=== PATIENT | male | born 1960 | race Caucasian/White ===

== ENCOUNTER → 2017-03-31 | Outpatient (CLI) | payer OTHER ==
[~2017-03-31] MED LIST: ALL300 PO; AMLO-110 PO; ASPI81TA28 PO; ATOR-22 PO; CLB/200 PO; FURO40TA3 PO; INDO-22 PO; LISI-729 PO; METF1TAB53 PO; METO-479 PO; NTRGSL/4 UT; PRLSR20 PO; TRAM-453 PO; VENL150C56 PO; ZOLP1TAB PO
[2017-03-31 09:38] LABS: ALT/SGPT 34 U/L (12-78); AST/SGOT 24 U/L (15-37); BLOOD UREA NITROGEN 15 mg/dl (7-18); BUN/CREATININE RATIO 13.4 (10-20); CARBON DIOXIDE 29 mmol/L (21-32); CHLORIDE 103 mmol/L (98-107); CHOLESTEROL 94 mg/dl (0-200); GLUCOSE 139 mg/dl (70-99); POTASSIUM 4.4 mmol/L (3.5-5.1); SODIUM 141 mmol/L (136-145); TRIGLYCERIDES 198 mg/dl (0-150); VERY LOW DENSITY LIPOPROT CALC 40 mg/dl
[2017-03-31 09:43] LABS: CHOLESTEROL/HDL RATIO 2.9; HDL CHOLESTEROL 32 mg/dl; LDL CHOLESTEROL CALCULATED 22 mg/dl; PROSTATE SPECIFIC ANTIGEN 0.465 ng/ml (0.000-4.000)
[2017-03-31 09:49] LABS: CALCIUM 9.1 mg/dl (8.5-10.1)
[2017-03-31 11:10] LABS: ESTIMATED AVERAGE GLUCOSE 134 mg/dl; HA1C FLAG Normal (Normal)
== END | disposition home or self-care (01) ==
LOC: C.LAB 06:46
PROVIDERS: ATTEND Internal Medicine
DX: E78.5 Hyperlipidemia, unspecified (principal); I10 Essential (primary) hypertension; E66.9 Obesity, unspecified; Z13.0 Encounter for screening for diseases of the blood and blood-forming organs and certain disorders involving the immune mechanism; F52.8 Other sexual dysfunction not due to a substance or known physiological condition; E11.9 Type 2 diabetes mellitus without complications

== ENCOUNTER → 2017-12-20 | Outpatient (CLI) | payer OTHER ==
[2017-12-20 09:38] LABS: ALT/SGPT 32 U/L (12-78); AST/SGOT 22 U/L (15-37); BLOOD UREA NITROGEN 11 mg/dl (7-18); CALCIUM 8.9 mg/dl (8.5-10.1); CARBON DIOXIDE 31 mmol/L (21-32); CREATININE 1.04 mg/dl (0.60-1.40); GLUCOSE 112 mg/dl (70-99); POTASSIUM 4.5 mmol/L (3.5-5.1); SODIUM 140 mmol/L (136-145)
[2017-12-20 09:41] LABS: CHOLESTEROL 117 mg/dl (0-200); LDL CHOLESTEROL CALCULATED 39 mg/dl; URIC ACID 8.1 mg/dl (2.6-7.2)
== END | disposition home or self-care (01) ==
LOC: C.LAB 06:45
PROVIDERS: ATTEND Internal Medicine
DX: E11.9 Type 2 diabetes mellitus without complications (principal); E78.5 Hyperlipidemia, unspecified; E83.42 Hypomagnesemia; M10.9 Gout, unspecified

== ENCOUNTER → 2018-01-13 | Outpatient (CLI) | payer OTHER ==
[~2018-01-13] VITALS: Ht 171.5 cm; Wt 118.8 kg
[2018-01-13 16:17] VITALS: BP 152/82; PULSE 80; Ht 171.5 cm; Wt 118.8 kg
== END | disposition home or self-care (01) ==
LOC: C.NEUR 14:50
PROVIDERS: ATTEND Internal Medicine Pulmonary Disease
DX: G47.33 Obstructive sleep apnea (adult) (pediatric) (principal); F51.04 Psychophysiologic insomnia

== ENCOUNTER → 2018-02-28 | Outpatient (CLI) | payer OTHER ==
[2018-02-28 17:34] LABS: ALKALINE PHOSPHATASE 80 U/L (45-117); ALT/SGPT 39 U/L (12-78); AST/SGOT 31 U/L (15-37); BLOOD UREA NITROGEN 17 mg/dl (7-18); CALCIUM 9.3 mg/dl (8.5-10.1); CARBON DIOXIDE 30 mmol/L (21-32); CREATININE 1.28 mg/dl (0.60-1.40); GLUCOSE 103 mg/dl (70-99); POTASSIUM 4.3 mmol/L (3.5-5.1); SODIUM 137 mmol/L (136-145); TOTAL PROTEIN 7.8 gm/dl (6.4-8.2)
== END | disposition home or self-care (01) ==
LOC: C.LAB 14:59
PROVIDERS: ATTEND Physician Assistant Medical
DX: E78.5 Hyperlipidemia, unspecified (principal)

== ENCOUNTER → 2018-03-04 | Outpatient (CLI) | payer OTHER ==
[~2018-03-04] MED LIST changes: +REGADENOSON 0.4 MG/5 ML SYR ONE
--- NOTE | 2018-03-04 23:52 | MYOCARDIAL PERFUSION SCAN ---
STUDY REQUESTED BY: Tano Nixon. PRIMARY CARE PROVIDER: Yoandy Javed MD STUDY TITLE: One-day nuclear medicine technetium-99m Cardiolite myocardial perfusion scan. INDICATION: History of coronary artery disease, prior bypass surgery with atypical chest pain. BASELINE EKG: Normal sinus rhythm at a rate of 73, no significant ST abnormalities. STRESS EKG: Heart rate natalya from 71-93 with Lexiscan representing 57% of maximum predicted heart rate. Peak blood pressure was 174/87. With Lexiscan, there were no ST changes. TECHNIQUE: For the stress portion of the study, 30.5 mCi of technetium-99m Cardiolite IV was injected at 1330 on 03/04/2018. Thirty minutes following the injection, imaging of the heart was performed in multiple projections. For the rest portion of the study, 11.4 mCi of technetium-99m Cardiolite was injected IV at 11:50. One hour following the injection, imaging of projections. FINDINGS: The rotating raw images were reviewed in detail. There was no significant motion. There was a positive diaphragmatic attenuation shadow. There was minimal gut/liver uptake impacting the inferior imaging border of the heart. There was no significant extracardiac pathologic uptake. The short axis, vertical long axis, horizontal long axis images were reviewed in detail. There was a primarily reversible apical septal/true apex perfusion defect with some difference score of approximately 5. There was also a primarily fixed inferior basal perfusion defect. LV was borderline dilated with an end diastolic volume of 131 mL. Calculated ejection fraction was 42% with paradoxical septal motion and akinesis of the basal inferior wall. There was also hypokinesis of the apex. IMPRESSION: 1. Positive Lexiscan myocardial perfusion study for ischemia in the apical septum in inferior carreno as well as the true apex. Some difference score was 5 representing an intermediate amount of myocardium at risk. 2. Primarily fixed basal inferior perfusion defect with associated wall motion abnormality suggesting prior inferior infarct. 3. Borderline LV size with an end-diastolic volume of 131 and mild LV dysfunction with an EF of 42%. There was basal inferior akinesis and hypokinesis of the apex. 4. Nondiagnostic Lexiscan EKG due to inability to reach target heart rate.
== END | disposition home or self-care (01) ==
LOC: C.NUCL 10:43
PROVIDERS: ATTEND Physician Assistant Medical
DX: R07.9 Chest pain, unspecified (principal)

== ENCOUNTER 2019-10-10 15:49 | Inpatient (IN) ==
[2019-10-10] MEDS ORDERED: ONDANSETRON INJ 2 MG/ML 2 ML VIAL IV STA (16:08)
[2019-10-10] MEDS ORDERED: MoRPHine SULFATE 10 MG/ML CARP/VIAL IV STA (16:08)
[2019-10-10 16:31] LABS: Basophils # (auto) 0.03 K/uL (0-0.2); Basophils % (auto) 0.3 %; Eosinophils # (auto) 0.23 K/uL (0-0.5); Eosinophils % (auto) 2.3 %; Hematocrit (blood only) 40.2 % (42-52); Hemoglobin 13.5 g/dL (14.0-18.0); Immature Granulocytes # (auto) 0.03 K/uL (0.00-0.02); Immature Granulocytes % (auto) 0.3 %; Lymphocytes # (auto) 1.73 K/uL (1.2-3.4); Lymphocytes % (auto) 17.6 %; Mean Corpuscular Hemoglobin 31.9 pg (25-34); Mean Corpuscular Hgb Conc 33.6 g/dL (32-36); Mean Platelet Volume 10.9 fL (7.4-10.4); Monocytes # (auto) 0.69 K/uL (0.11-0.59); Neutrophils # (auto) 7.11 K/uL (1.4-6.5); Neutrophils % (auto) 72.5 %; Platelet Count 151 K/uL (130-400); RDW Coefficient of Variation 13.9 % (11.5-14.5); RDW Standard Deviation 47.9 fL (36.4-46.3); Red Blood Count 4.23 M/uL (4.7-6.1); White Blood Count 9.82 K/uL (4.8-10.8)
[2019-10-10 16:50] LABS: Albumin Level 3.2 gm/dl (3.4-5.0); BUN Creatinine Ratio 9.3 (10-20); Calcium 8.6 mg/dl (8.5-10.1); Creatinine Clr Calc Pharmacy 22.2 ml/min; Est GFR (African American) 15.5; Est GFR (Non-African American) 13.4; Potassium 5.6 mmol/L (3.5-5.1)
[2019-10-10 16:53] LABS: Albumin Globulin Ratio 0.8 (0.9-2); Bilirubin,Total 0.8 mg/dl (0.2-1); Globulin 3.9 gm/dl (2.5-4.0); Total Protein 7.1 gm/dl (6.4-8.2)
--- NOTE | 2019-10-10 17:22 | XRay Report ---
KUB CLINICAL HISTORY: Left flank pain. COMPARISON STUDY: KUB October 07, 2019. CT of the abdomen and pelvis October 08, 2019. FINDINGS: A 6 mm left ureteropelvic junction calculus is unchanged in position since CT of September 242018. A probable 8 mm x 4 mm distal right ureteral calculus is also similar in position. Bilateral renal calculi measure up to 8 mm. Left hip arthroplasty is noted. The left iliac artery stent is not ed. Bowel gas pattern is normal. IMPRESSION: 1. No change in position of a 6 mm left ureteropelvic junction calculus. 2. Suspected 8 mm x 4 mm distal right ureteral calculus. 3. Bilateral nephrolithiasis. Electronically signed by: Oleg Erickson M.D. 10/10/2019 5:20 PM
--- NOTE | 2019-10-10 18:06 | Ultrasound Report ---
RENAL ULTRASOUND CLINICAL HISTORY: 6mm l stone COMPARISON STUDY: CT of the abdomen and pelvis October 08, 2019. Renal ultrasound October 07, 2019 . TECHNIQUE: Sonography of the kidneys and the urinary bladder was performed. FINDINGS: Right kidney measures 11.9 cm maximal dimension and the left measures 13.6 cm. Bilateral re nal calculi are noted. Mild right hydronephrosis has developed since CT of October 08, 2019. Mild to moderate left hydronephrosis is similar to prior CT. There are multiple left renal cysts. Neither ur eteral jet was identified. No ureteral calculi are identified although these can be occult by sonogra phy. IMPRESSION: 1. Interval development of mild right hydronephrosis since CT of October 08, 2019. No significant ch amadeo in mild to moderate left hydronephrosis. No ureteral calculi identified although these are often occult by sonography. 2. Bilateral nephrolithiasis. 3. Multiple left renal cyst. Electronically signed by: Oleg Erickson M.D. 10/10/2019 6:05 PM
[2019-10-10] MEDS ORDERED: SODIUM CHLORIDE 0.9% 1000ML 2,000 ML IV ONE (18:08)
[2019-10-10 18:25] LABS: Appearance Urine Clear (Clear); Bacteria Urine Automated Negative (Negative); Bilirubin Urine Negative (Negative); Blood Urine Trace (Negative); Color Urine Yellow; Epithelial Cell Urine Auto >30 /lpf (0-5); Glucose Urine UA Negative (Negative); Ketones Urine Negative (Negative); Leukocyte Esterase Urine Negative (Negative); Nitrite Urine Negative (Negative); Protein Urine Negative (Negative); Specific Gravity Urine 1.019 (1.000-1.030); Urobilinogen Urine Negative (Negative)
[2019-10-10] MEDS ORDERED: GLUCOSE 10 TABS/TUBE PO PRN (19:46)
[2019-10-10] MEDS ORDERED: NITROGLYCERIN SL 0.4 MG/TAB TAB SL PRN (19:46)
[2019-10-10] MEDS ORDERED: GLUCOSE 40% GEL 15 GM TUBE PO PRN (19:46)
[2019-10-10] MEDS ORDERED: ONDANSETRON INJ 2 MG/ML 2 ML VIAL IV PRN (19:46)
[2019-10-10] MEDS ORDERED: ACETAMINOPHEN 325 MG TAB PO PRN (19:46)
[2019-10-10] MEDS ORDERED: GLUCAGON FOR INJ 1 MG VIAL SQ PRN (19:46)
[2019-10-10] MEDS ORDERED: CARBOHYDRATES FOR HYPOGLYCEMIA PO PRN (19:46)
[2019-10-10] MEDS ORDERED: DEXTROSE 50% 50 ML SYRINGE IV PRN (19:46)
[2019-10-10] MEDS ORDERED: HYDROmorphone INJ 1 MG/ML SYRINGE ONE (19:51)
--- NOTE | 2019-10-10 20:08 | History & Physical Report ---
Date of Service October 10, 2019 Assessment & Plan (1) Bilateral ureteral calculi: Admit tele Strain urine NSS @ 125 Urology consult Pain and nausea control Continue Flomax Patient was placed on Cefdinir at ED visit. I will change to Rocephin, however urine does not show signs of infection. I do so due to concern if on kidney is blocked and not draining. (2) Hydronephrosis due to obstruction of bladder: L>R (3) Acute kidney injury: Likely due to b/l ureteral obstruction Baseline creat 1.09 now 4.46 Hold celecoxib, lisinopril, Lasix, and metformin. Check BMP in am. (4) Type II diabetes mellitus: Hold Metformin Sliding scale insulin coverage. (5) CAD (coronary artery disease): Continue NGT prn, metoprolol, and aspirin. (6) GERD (gastroesophageal reflux disease): Continue omeprazole (7) Hyperlipidemia: Continue atorvastatin (8) Hypertension: Continue amlodipine Add prn hydralazine. (9) Gout: Continue allopurinol. History of Present Illness 59 y/o male presented to the ED with continue Left flank pain radiating into the left testicle not controlled with oral pain medication. He was seen in the ED 2 days prior and was diagnosed with Left ureteral stone. KUB today shows persistent stone on the Left and questionable stone in the Right ureter. Also his creat jumped from 1.8 on 10/08/19 to 4.46 today. His baseline creat is 1.09. + Nausea. No F/C, cough, chest pain, SOB, hematuria, or vomiting. Primary Care Provider: Yoandy Javed MD Allergies Allergy/AdvReac Type Severity Reaction Status Date / Time Zocor TABS AdvReac Mild nausea, Uncoded 10/10/19 16:20 vomiting Home Medications Home Medications Medication Instructions Recorded Confirmed Type metoprolol succinate 100 mg 200 mg PO QAM #180 tab 07/23/19 10/10/19 History tablet,extended release 24 hr nystatin 100,000 unit/gram topical 1 appln TOP BID PRN gm 07/23/19 10/10/19 History cream tadalafil 20 mg tablet 20 mg PO DAILY PRN #18 tab 07/23/19 10/10/19 History zolpidem 12.5 mg tablet,extended 12.5 mg PO HS PRN tab 07/23/19 10/10/19 History release,multiphase nitroglycerin 0.4 mg sublingual 0.4 mg SL UD PRN #25 tab 07/27/19 10/10/19 History tablet allopurinol 300 mg PO HS 10/07/19 10/10/19 History amlodipine 5 mg PO QAM 10/07/19 10/10/19 History aspirin [Aspir-81] 81 mg PO QAM 10/07/19 10/10/19 History atorvastatin 40 mg PO HS 10/07/19 10/10/19 History celecoxib 200 mg PO BID 10/07/19 10/10/19 History furosemide 40 mg PO QAM 10/07/19 10/10/19 History hydrocodone-acetaminophen 1 tab PO BID PRN 10/07/19 10/10/19 History lisinopril 5 mg PO HS 10/07/19 10/10/19 History metformin 1,000 mg PO HS 10/07/19 10/10/19 History omeprazole 20 mg PO QAM 10/07/19 10/10/19 History venlafaxine 225 mg PO HS 10/07/19 10/10/19 History cefdinir 300 mg PO BID 10 Days #20 cap 10/08/19 10/10/19 Rx ondansetron HCl [Zofran] 4 mg PO Q6 PRN #6 tab 10/08/19 10/10/19 Rx oxycodone 5 mg PO DAILY PRN #14 tab 10/08/19 10/10/19 Rx tamsulosin [Flomax] 0.4 mg PO HS #10 cap 10/08/19 10/10/19 Rx Past Med/Surg History Medical History (Updated 10/10/19 @ 19:57 by Db Julian DO) CAD (coronary artery disease) Erectile dysfunction (Chronic) GERD (gastroesophageal reflux disease) Gout (Chronic) Hypertension (Chronic) PAD (peripheral artery disease) (Acute 08/22/14) Type II diabetes mellitus Surgical History H/O repair of rotator cuff History of cholecystectomy History of hip replacement History of hip surgery History of lumbar surgery S/P CABG x 3 Social History Visual Impairment: No Limitations Hearing Ability: Normal marital status: Current Living Situation: Spouse current occupational status: disabled Feels Safe at Home: Yes Smoking Status: Former smoker Age Quit Using Tobacco: 37 ; packs per day: 2 ; Cigarettes Per Day: 20-40 ; Second Hand Exposure: No ; Hx Alcohol Use: Yes Alcohol Intake Frequency: Weekly Hx Substance Use: No Review of Systems Review of Systems: Constitutional- no fever; no weight loss Eyes- no acute visual changes ENT- no sinus drainage; no pharyngitis Pulmonary- no cough, no wheezing, no shortness of breath Cardiac- no chest pain, no palpitations, no orthopnea, no dependent edema GI- in HPI - As in HPI Musculoskeletal- no arthralgias, no myalgias Derm- no rashes, no new skin lesions. Hematologic- no unusual bruising, no unusual bleeding Lymphatics- no adenopathy Endocrine- no polyuria or polydipsia; no heat or cold intolerance Neuro- no headaches, no focal neurologic symptoms Psych- no anxiety, no depression Physical Exam Physical Exam: General- adult male, NAD Head- atraumatic Eyes- PERRL, EOMI, anicteric ENT- oropharynx clear Neck- supple, no JVD, no adenopathy, no thyromegaly. Lungs- CTA b/l no R/R/W Heart- regular rhythm; no murmur, no gallop, no rub appreciated Abdomen- normal bowel sounds, soft, nontender. Extremities- no pretibial edema, no calf tenderness; peripheral pulses intact Neuro- alert, oriented x 3; PERRL, EOMI; laboratory chemist II-XII grossly intact, Non-focal. Skin- warm & dry Results & Data Vital Signs (Past 12 Hours) Vital Signs Temp Pulse Pulse Resp BP BP Pulse Ox 10/10/19 18:05 157/73 H 10/10/19 18:04 83 97 10/10/19 17:00 97 10/10/19 15:53 36.8 C 79 20 196/102 H 96 Laboratory Results Laboratory Results WBC 9.82 K/uL (4.8-10.8) 10/10/19 16:23 RBC 4.23 M/uL (4.7-6.1) L 10/10/19 16:23 Hgb 13.5 g/dL (14.0-18.0) L 10/10/19 16:23 Hct 40.2 % (42-52) L 10/10/19 16:23 MCV 95.0 fL (80-100) 10/10/19 16:23 MCH 31.9 pg (25-34) 10/10/19 16:23 MCHC 33.6 g/dL (32-36) 10/10/19 16:23 RDW Std Deviation 47.9 fL (36.4-46.3) H 10/10/19 16:23 RDW Coeff of Masoud 13.9 % (11.5-14.5) 10/10/19 16:23 Plt Count 151 K/uL (130-400) 10/10/19 16:23 MPV 10.9 fL (7.4-10.4) H 10/10/19 16:23 Immature Gran % (Auto) 0.3 % 10/10/19 16:23 Neut % (Auto) 72.5 % 10/10/19 16:23 Lymph % (Auto) 17.6 % 10/10/19 16:23 [place] % (Auto) 7.0 % 10/10/19 16:23 Eos % (Auto) 2.3 % 10/10/19 16:23 Baso % (Auto) 0.3 % 10/10/19 16:23 Immature Gran # (Auto) 0.03 K/uL (0.00-0.02) H 10/10/19 16:23 Neut # (Auto) 7.11 K/uL (1.4-6.5) H 10/10/19 16:23 Lymph # (Auto) 1.73 K/uL (1.2-3.4) 10/10/19 16:23 [place] # (Auto) 0.69 K/uL (0.11-0.59) H 10/10/19 16:23 Eos # (Auto) 0.23 K/uL (0-0.5) 10/10/19 16:23 Baso # (Auto) 0.03 K/uL (0-0.2) 10/10/19 16:23 Sodium 132 mmol/L (136-145) L 10/10/19 16:23 Potassium 5.6 mmol/L (3.5-5.1) H 10/10/19 16:23 Chloride 103 mmol/L (98-107) 10/10/19 16:23 Carbon Dioxide 25 mmol/L (21-32) 10/10/19 16:23 Anion Gap 4.0 (3-11) 10/10/19 16:23 BUN 42 mg/dl (7-18) H 10/10/19 16:23 Creatinine 4.46 mg/dl (0.6-1.4) H 10/10/19 16:23 Est Cr Clr Drug Dosing 22.2 ml/min 10/10/19 16:23 Est GFR ( Amer) 15.5 10/10/19 16:23 Est GFR (Non-Af Amer) 13.4 10/10/19 16:23 BUN/Creatinine Ratio 9.3 (10-20) L 10/10/19 16:23 Glucose 131 mg/dl (70-99) H 10/10/19 16:23 Calcium 8.6 mg/dl (8.5-10.1) 10/10/19 16:23 Total Bilirubin 0.8 mg/dl (0.2-1) 10/10/19 16:23 AST 23 U/L (15-37) 10/10/19 16:23 ALT 68 U/L (12-78) 10/10/19 16:23 Alkaline Phosphatase 99 U/L (45-117) 10/10/19 16:23 Total Protein 7.1 gm/dl (6.4-8.2) 10/10/19 16:23 Albumin 3.2 gm/dl (3.4-5.0) L 10/10/19 16:23 Globulin 3.9 gm/dl (2.5-4.0) 10/10/19 16:23 Albumin/Globulin Ratio 0.8 (0.9-2) L 10/10/19 16:23 Lipase 772 U/L (73-393) H 10/10/19 16:23 Urine Color Yellow 10/10/19 17:55 Urine Appearance Clear (Clear) 10/10/19 17:55 Urine pH 5.0 (4.5-7.5) 10/10/19 17:55 Ur Specific [place] 1.019 (1.000-1.030) 10/10/19 17:55 Urine Protein Negative (Negative) 10/10/19 17:55 Urine Glucose (UA) Negative (Negative) 10/10/19 17:55 Urine Ketones Negative (Negative) 10/10/19 17:55 Urine Blood Trace (Negative) H 10/10/19 17:55 Urine Nitrite Negative (Negative) 10/10/19 17:55 Urine Bilirubin Negative (Negative) 10/10/19 17:55 Urine Urobilinogen Negative (Negative) 10/10/19 17:55 Ur Leukocyte Esterase Negative (Negative) 10/10/19 17:55 Urine WBC (Auto) 1-5 /hpf (0-5) 10/10/19 17:55 Urine RBC (Auto) 5-10 /hpf (0-4) H 10/10/19 17:55 U Hyaline Cast (Auto) 1-5 /lpf (0-5) 10/10/19 17:55 U Epithel Cells (Auto) >30 /lpf (0-5) H 10/10/19 17:55 Urine Bacteria (Auto) Negative (Negative) 10/10/19 17:55 Diagnostic Findings [place], [place] [phone] XRay Report Patient: DEVON CARRIZALES Date: 10/10/19 MR#: [id number]: [address] [place] [address] Acct ID:[id number]: Date: 1960[facility] Zip: [place] [address] Age: 59Location: ED Sex: M Room/Bed: Att Phy:Diagnosis: KIDNEY STONES Siobhan Phy: Yoandy Javed MDServlani Date: 10/10/19 Fam Phy:Interpreting Phy: Oleg Erickson MD Admit Phy: Ordering Phy: Luis Armando Melgoza DO cc: ~ KUB CLINICAL HISTORY: Left flank pain. COMPARISON STUDY: KUB October 07, 2019. CT of the abdomen and pelvis October 08, 2019. FINDINGS: A 6 mm left ureteropelvic junction calculus is unchanged in position since CT of October 08, 2019. A probable 8 mm x 4 mm distal right ureteral calculus is also similar in position. Bilateral renal calculi measure up to 8 mm. Left hip arthroplasty is noted. The left iliac artery stent is noted. Bowel gas pattern is normal. IMPRESSION: 1. No change in position of a 6 mm left ureteropelvic junction calculus. 2. Suspected 8 mm x 4 mm distal right ureteral calculus. 3. Bilateral nephrolithiasis. Electronically signed by: Oleg Erickson M.D. 10/10/2019 5:20 PM Dictated: 10/10/191715 Transcribed: 10/10/191715 [place], [place] [phone] Ultrasound Report Patient: DEVON CARRIZALES Date: 10/10/19 MR#: [id number]: [address] [place] [address] Acct ID:[id number]: Date: 1960[facility] Zip: [place] [address] Age: 59Location: ED Sex: M Room/Bed: Att Phy:Diagnosis: KIDNEY STONES Siobhan Phy: Yoandy Javed, MDService Date: 10/10/19 Fam Phy:Interpreting Phy: Oleg Erickson MD Admit Phy: Ordering Phy: Luis Armando Melgoza DO cc: ~ RENAL ULTRASOUND CLINICAL HISTORY: 6mm l stone COMPARISON STUDY: CT of the abdomen and pelvis October 08, 2019. Renal ultrasound October 07, 2019. TECHNIQUE: Sonography of the kidneys and the urinary bladder was performed. FINDINGS: Right kidney measures 11.9 cm maximal dimension and the left measures 13.6 cm. Bilateral renal calculi are noted. Mild right hydronephrosis has developed since CT of October 08, 2019. Mild to moderate left hydronephrosis is similar to prior CT. There are multiple left renal cysts. Neither ureteral jet was identified. No ureteral calculi are identified although these can be occult by sonography. IMPRESSION: 1. Interval development of mild right hydronephrosis since CT of October 08, 2019. No significant change in mild to moderate left hydronephrosis. No ureteral calculi identified although these are often occult by sonography. 2. Bilateral nephrolithiasis. 3. Multiple left renal cyst. Electronically signed by: Oleg Erickson M.D. 10/10/2019 6:05 PM Dictated: 10/10/191801 Transcribed: 10/10/191801 Code Status & VTE Plan VTE Prophylaxis Plan VTE Prophylaxis will be ordered: Yes PG Care Time/CCT Total # of Minutes Spent Total Time Spent: 60 Total Time Spent with Patient: Total time spent is greater than 50% in coordination of care (as documented) at patient's floor/unit and/or counseling patient:
--- NOTE | 2019-10-10 20:42 | Emergency Department Note ---
Entered by Melonie Tee acting as a scribe for Luis Armando Melgoza DO History of Present Illness General Chief complaint: Kidney Stone Stated complaint: KIDNEY STONES Time Seen by Provider: 10/10/19 15:56 Source: patient and family () History of Present Illness Onset (ago): day(s) 4 Location: left (flank) Radiation: back (left side), abdomen (center) and other (left testicle) Pain Consistency: + intermittent Maximum Pain Intensity: 9 Quality: + other ("shooting") Associated symptoms: + denies other symptoms (rhinorrhea ), + diaphoresis, + loss of appetite (secondary to pain), + nausea/vomiting and + other (chills); no cough Treatments prior to arrival: other (oxycodone 12:00PM) The patient is a 59 year old male with a history of kidney stones, CAD, PAD, DM2, HTN, hyperlipidemia who presents to the Emergency Room with complaints of kidney stones. 4 days ago, the patient began to experience left sided intermittent flank pain associated with chills, vomiting, and diaphoresis. He was seen here in the ED 3 days ago for a left sided 6mm kidney stone and sent home with [facility]. Since his recent discharge, his pain persists and radiates to the left side of his back and he states that it is now shooting into the center of his abdomen and left testicle. He reports taking oxycodone at 12:00PM today with no relief. Of note, he normally passes his kidney stones on his own, however this one is different. states that he has not followed up with nephrology for years. Additionally, the patient did not have any PO intake today due to pain. His last meal was dinner last night. He is unsure of fever and denies cough and rhinorrhea. The patient offers no additional concerns at this time. Home Medications Home Medications Medication Instructions Recorded Confirmed Type metoprolol succinate 100 mg 200 mg PO QAM #180 tab 07/23/19 10/10/19 History tablet,extended release 24 hr nystatin 100,000 unit/gram topical 1 appln TOP BID PRN gm 07/23/19 10/10/19 History cream tadalafil 20 mg tablet 20 mg PO DAILY PRN #18 tab 07/23/19 10/10/19 History zolpidem 12.5 mg tablet,extended 12.5 mg PO HS PRN tab 07/23/19 10/10/19 History release,multiphase nitroglycerin 0.4 mg sublingual 0.4 mg SL UD PRN #25 tab 07/27/19 10/10/19 History tablet allopurinol 300 mg PO HS 10/07/19 10/10/19 History amlodipine 5 mg PO QAM 10/07/19 10/10/19 History aspirin [Aspir-81] 81 mg PO QAM 10/07/19 10/10/19 History atorvastatin 40 mg PO HS 10/07/19 10/10/19 History celecoxib 200 mg PO BID 10/07/19 10/10/19 History furosemide 40 mg PO QAM 10/07/19 10/10/19 History hydrocodone-acetaminophen 1 tab PO BID PRN 10/07/19 10/10/19 History lisinopril 5 mg PO HS 10/07/19 10/10/19 History metformin 1,000 mg PO HS 10/07/19 10/10/19 History omeprazole 20 mg PO QAM 10/07/19 10/10/19 History venlafaxine 225 mg PO HS 10/07/19 10/10/19 History cefdinir 300 mg PO BID 10 Days #20 cap 10/08/19 10/10/19 Rx ondansetron HCl [Zofran] 4 mg PO Q6 PRN #6 tab 10/08/19 10/10/19 Rx oxycodone 5 mg PO DAILY PRN #14 tab 10/08/19 10/10/19 Rx tamsulosin [Flomax] 0.4 mg PO HS #10 cap 10/08/19 10/10/19 Rx Allergies Allergy/AdvReac Type Severity Reaction Status Date / Time Zocor TABS AdvReac Mild nausea, Uncoded 10/10/19 16:20 vomiting Past Med/Surg History Medical History CAD (coronary artery disease) Erectile dysfunction (Chronic) GERD (gastroesophageal reflux disease) Gout (Chronic) Hypertension (Chronic) PAD (peripheral artery disease) (Acute 08/22/14) Type II diabetes mellitus Surgical History H/O repair of rotator cuff History of cholecystectomy History of hip replacement History of hip surgery History of lumbar surgery S/P CABG x 3 Family History Aunt Myocardial infarction Bone cancer Grandfather (Paternal) Myocardial infarction Father Myocardial infarction Uncle Bone cancer Brain cancer Prostate cancer Mother Breast cancer Diabetes Social History Preferred Language: Faroese Communication Ability: Effective Visual Impairment: No Limitations Hearing Ability: Normal Environmental Tech Required: No Beliefs That Will Affect Care: None marital status: Current Living Situation: Spouse Current Living Situation Comment: House current occupational status: disabled Feels Safe at Home: Yes Smoking Status: Never smoker Age Quit Using Tobacco: 37 ; packs per day: 2 ; Cigarettes Per Day: 20-40 ; Second Hand Exposure: No ; Hx Alcohol Use: No Hx Substance Use: No Review of Systems See HPI for pertinent positives & negatives. and A total of 10 systems reviewed and were otherwise negative Physical Exam Vital Signs Vital Signs - 24 hr 10/10/19 15:53 10/10/19 17:00 10/10/19 18:04 Temperature 36.8 C Temperature Source Oral Pulse Rate 79 Pulse Rate [Finger] 83 Respiratory Rate 20 Respiratory Effort / Characteristics Non-Labored Spontaneous Respiratory Depth Normal Blood Pressure 196/102 H Blood Pressure [Left Arm] Blood Pressure Mean 133 Blood Pressure Mean [Left Arm] Blood Pressure Position Sitting Pulse Oximetry 96 97 97 Oxygen Delivery Method Room Air Room Air Room Air Sepsis Recent Fever Within 48 Hours No Sepsis Action Taken by Nursing No Action Required 10/10/19 18:05 Temperature Temperature Source Pulse Rate Pulse Rate [Finger] Respiratory Rate Respiratory Effort / Characteristics Respiratory Depth Blood Pressure Blood Pressure [Left Arm] 157/73 H Blood Pressure Mean Blood Pressure Mean [Left Arm] 101 Blood Pressure Position Pulse Oximetry Oxygen Delivery Method Sepsis Recent Fever Within 48 Hours Sepsis Action Taken by Nursing GENERAL: alert, well nourished, sitting up in bed, holding left flank, mild distress, non-toxic EYE EXAM: normal conjunctiva OROPHARYNX: no exudate, no erythema, lips, buccal mucosa, and tongue normal and mucous membranes are moist NECK: supple, no nuchal rigidity, no adenopathy, non-tender LUNGS: Clear to auscultation. Normal chest wall mechanics HEART: no murmurs, S1 normal and S2 normal ABDOMEN: abdomen soft, non-tender, normo-active bowel sounds, no masses, no rebound or guarding. BACK: Back is symmetrical on inspection and there is no deformity, no midline tenderness, no CVA tenderness. SKIN: no rashes and no bruising UPPER EXTREMITIES: upper extremities are grossly normal. LOWER EXTREMITIES: No pitting edema. NEURO EXAM: Normal sensorium, cranial nerves II-XII grossly intact, normal speech, no gross weakness of arms, no gross weakness of legs. Course Course ED COURSE: Vital signs were reviewed and showed hypertension. The patients medical record was reviewed The above diagnostic studies were performed and reviewed. ED treatments and interventions as stated above. 1605: The patient was evaluated in room C01. A complete history and physical examination was performed. 1726: I checked on the patient and he states that he is feeling better. 1817: Upon reevaluation, the patient is resting.I discussed my findings with the patient and he understands and agrees with the treatment plan. Based on the patients age, coexisting illnesses, exam and lab findings the decision to treat as an inpatient was made. The patient remained stable while under my care. The patient will be evaluated for further management by Dr. Julian, [facility] Hospitalist. Administered Medications Discontinued Medications Hydromorphone HCl (Dilaudid) Confirm Administered Dose 1 mg .ROUTE .STK-MED ONE Stop: 10/10/19 19:52 Last Admin: 10/10/19 19:54 Dose: 1 mg Documented by: [id number] Sodium Chloride (Nss 1000ml) 2,000 mls @ 999 mls/hr IV .Q2H1M ONE Stop: 10/10/19 20:08 Last Infusion: 10/10/19 20:19 Dose: 0 mls/hr Documented by: [id number] Admin: 10/10/19 18:12 Dose: 999 mls/hr Documented by: [id number] Morphine Sulfate (Morphine Sulfate) 6 mg IV NOW STA Stop: 10/10/19 16:09 Last Admin: 10/10/19 16:27 Dose: 6 mg Documented by: [id number] Ondansetron HCl (Zofran) 4 mg IV NOW STA Stop: 10/10/19 16:09 Last Admin: 10/10/19 16:27 Dose: 4 mg Documented by: [id number] Medical Decision Making Differential Diagnosis Differential diagnoses includes but is not limited to gastritis, peptic ulcer disease, GERD, gallbladder disease, pancreatitis, small bowel obstruction, acute coronary syndrome, pericarditis, ischemic bowel, irritable bowel disease, irritable bowel syndrome, appendicitis, diverticulitis, malignancy, hernia, urinary tract infection, torsion, perforation, trauma, infectious. Medical Records Attestation: I reviewed the patient's medical records. Home Medications Current Medication List: was personally reviewed by me Laboratory Data Attestation: I reviewed the patient's lab results. Result diagrams: 10/10/19 16:23 10/10/19 16:23 Lab Results 10/10/19 10/10/19 10/10/19 Range/Units 16:23 16:23 17:55 WBC 9.82 (4.8-10.8) K/uL RBC 4.23 L (4.7-6.1) M/uL Hgb 13.5 L (14.0-18.0) g/dL Hct 40.2 L (42-52) % MCV 95.0 (80-100) fL MCH 31.9 (25-34) pg MCHC 33.6 (32-36) g/dL RDW Std Deviation 47.9 H (36.4-46.3) fL RDW Coeff of Masoud 13.9 (11.5-14.5) % Plt Count 151 (130-400) K/uL MPV 10.9 H (7.4-10.4) fL Immature Gran % (Auto) 0.3 % Neut % (Auto) 72.5 % Lymph % (Auto) 17.6 % Knox % (Auto) 7.0 % Eos % (Auto) 2.3 % Baso % (Auto) 0.3 % Immature Gran # (Auto) 0.03 H (0.00-0.02) K/uL Neut # (Auto) 7.11 H (1.4-6.5) K/uL Lymph # (Auto) 1.73 (1.2-3.4) K/uL Knox # (Auto) 0.69 H (0.11-0.59) K/uL Eos # (Auto) 0.23 (0-0.5) K/uL Baso # (Auto) 0.03 (0-0.2) K/uL Sodium 132 L (136-145) mmol/L Potassium 5.6 H (3.5-5.1) mmol/L Chloride 103 (98-107) mmol/L Carbon Dioxide 25 (21-32) mmol/L Anion Gap 4.0 (3-11) BUN 42 H (7-18) mg/dl Creatinine 4.46 H (0.6-1.4) mg/dl Est Cr Clr Drug Dosing 22.2 ml/min Est GFR ( Amer) 15.5 Est GFR (Non-Af Amer) 13.4 BUN/Creatinine Ratio 9.3 L (10-20) Glucose 131 H (70-99) mg/dl Calcium 8.6 (8.5-10.1) mg/dl Total Bilirubin 0.8 (0.2-1) mg/dl AST 23 (15-37) U/L ALT 68 (12-78) U/L Alkaline Phosphatase 99 (45-117) U/L Total Protein 7.1 (6.4-8.2) gm/dl Albumin 3.2 L (3.4-5.0) gm/dl Globulin 3.9 (2.5-4.0) gm/dl Albumin/Globulin Ratio 0.8 L (0.9-2) Lipase 772 H (73-393) U/L Urine Color Yellow Urine Appearance Clear (Clear) Urine pH 5.0 (4.5-7.5) Ur Specific Felton 1.019 (1.000-1.030) Urine Protein Negative (Negative) Urine Glucose (UA) Negative (Negative) Urine Ketones Negative (Negative) Urine Blood Trace H (Negative) Urine Nitrite Negative (Negative) Urine Bilirubin Negative (Negative) Urine Urobilinogen Negative (Negative) Ur Leukocyte Esterase Negative (Negative) Urine WBC (Auto) 1-5 (0-5) /hpf Urine RBC (Auto) 5-10 H (0-4) /hpf U Hyaline Cast (Auto) 1-5 (0-5) /lpf U Epithel Cells (Auto) >30 H (0-5) /lpf Urine Bacteria (Auto) Negative (Negative) Blood Pressure Blood Pressure Findings: Elevated blood pressure Blood Pressure Disposition: further management by hospitalist RICKEY Narrative Patient is a 59-year-old male presents the ER for left flank pain. Patient was seen here and treated for 6 mm left renal stone about two days ago. Of note on that CT reviewed the question some right distal ureteral stones versus fecaliths. Notes the pain has been persistent and is getting very nauseated and has been unable to keep much down since then. He has not eaten or drank anything for the past 24 hours. IV was established blood work was obtained showed no significant leukocytosis or anemia. BMP with a creatinine of 4.4 up from 1.2. Potassium was 5.6. Lipase was slightly elevated at 772. UA was unremarkable. Patient was given IV fluids and IV narcotics. Ultrasound shows mild hydronephrosis which is persistent on the left along with some new hydronephrosis on the right. KUB favors that this is likely in the right ureter. Favor that this TANYA is a combination of dehydration and bilateral obstructing stones. Patient family were updated bedside admitted for further work-up. Impression & Plan Bilateral ureteral calculi, Renal colic, TANYA (acute kidney injury), Hydronephrosis, Hyperkalemia Discharge Plan Visit Data *Final* Discharge Date/Time: 10/10/19 20:22 Chief Complaint: Kidney Stone Stated Complaint: KIDNEY STONES ED Provider: Luis Armando Melgoza Discharge Problem: Bilateral ureteral calculi, Renal colic, TANYA (acute kidney injury), Hydron ephrosis, Hyperkalemia Patient Disposition: Admitted As Inpatient Discharge Instructions Interventions: ED Discharge Assessment Last Done: 10/10/19 20:22 Discharge Problem: Hydronephrosis Qualifiers: Hydronephrosis type: unspecified Qualified Code(s): N13.30 - Unspecified hydronephrosis The scribe's documentation has been prepared under my direction and personally reviewed by me in its entirety. I confirm that the note above accurately reflects all work, treatment, procedures, and medical decision making performed by me.
[2019-10-10] MEDS: SODIUM CHLORIDE 0.9% 1000ML 1,000 ML IV SCH (21:06)
[2019-10-10] MEDS ORDERED: ZOLPIDEM TARTRATE 10 MG TAB PO PRN (21:12)
[2019-10-10] MEDS: INSULIN ASPART 100 UNITS/ML 3 ML PEN SC SCH (21:34)
[2019-10-10] MEDS: TAMSULOSIN HCL 0.4 MG CAP PO SCH (21:43)
[2019-10-10] MEDS: allopurinoL 300 MG TAB PO SCH (21:43)
[2019-10-10] MEDS: ATORVASTATIN 40 MG TAB PO SCH (21:44)
[2019-10-10] MEDS: VENLAFAXINE HCL XR 75 MG CAPXR PO SCH (21:44)
[2019-10-10] MEDS: cefTRIAXone SODIUM 2,000 MG in DEXTROSE 5% 50 ML IV SCH (22:06)
[2019-10-11] MEDS: SODIUM CHLORIDE 0.9% 1000ML 1,000 ML IV SCH ×2 (04:28→16:27)
[2019-10-11] MEDS: HYDROmorphone INJ 1 MG/ML SYRINGE IV PRN ×3 (04:33→11:34)
[2019-10-11] MEDS: HydrALAZINE HCL 20 MG/ML VIAL IV PRN ×2 (04:39→16:39)
[2019-10-11 06:02] LABS: Hematocrit (blood only) 37.1 % (42-52); Hemoglobin 12.1 g/dL (14.0-18.0); Mean Corpuscular Hemoglobin 30.9 pg (25-34); Mean Corpuscular Hgb Conc 32.6 g/dL (32-36); Mean Corpuscular Volume 94.9 fL (80-100); Mean Platelet Volume 10.8 fL (7.4-10.4); Platelet Count 143 K/uL (130-400); RDW Coefficient of Variation 14.1 % (11.5-14.5); RDW Standard Deviation 48.5 fL (36.4-46.3); Red Blood Count 3.91 M/uL (4.7-6.1); White Blood Count 9.41 K/uL (4.8-10.8)
[2019-10-11 06:36] LABS: BUN Creatinine Ratio 9.3 (10-20); Creatinine Clr Calc Pharmacy 23.1 ml/min; Est GFR (African American) 16.2; Magnesium 1.7 mg/dl (1.8-2.4); Potassium 5.4 mmol/L (3.5-5.1)
[2019-10-11 07:35] LABS: Estimated Average Glucose 137 mg/dl; Hemoglobin A1C 6.4 % (4.5-5.6)
[2019-10-11] MEDS: METOPROLOL SUCC 50MG EXT REL TAB PO SCH (07:36)
[2019-10-11] MEDS: AMLODIPINE BESYLATE 5 MG TAB PO SCH (07:36)
[2019-10-11] MEDS: ASPIRIN 81 MG ECTAB PO SCH (07:37)
[2019-10-11] MEDS: PANTOprazole 40 MG TAB PO SCH (07:37)
[2019-10-11] MEDS: INSULIN ASPART 100 UNITS/ML 3 ML PEN SC SCH ×4 (08:19→22:17)
--- NOTE | 2019-10-11 09:53 | Urology Consultation ---
Date of Consultation October 11, 2019 Assessment & Plan (1) Renal colic: (2) TANYA (acute kidney injury): (3) Hydronephrosis: (4) Bilateral ureteral calculi: 59 yo M admitted with TANYA, hydronephrosis, renal colic secondary to 6 mm left UPJ and 8 mm distal right ureteral calculi. Strain all urine Keep NPO Continue IV fluids Findings reviewed with Dr. Arechiga. Given his acute kidney injury in the context of an obstructing bilateral stones, will proceed with OR for cysto, bilateral retrograde pyelogram and bilateral stent placement. Risks and benefits to be reviewed with patient by Dr. Arechiga. OR notified. Preoperative CXR and EKG ordered. Will cover with IV Ciprofloxacin preoperatively. History of Present Illness Attending Physician: Karyn Hensley MD History of Present Illness 59 yo M admitted through [facility] ER 10/10 with complaint of left sided flank pain, chills, vomiting and bilateral kidney stones. Was seen initially at [facility] ER 2 days prior for left sided flank pain, vomiting. CT abd/pelvis showed 8 mm obstructing calculus in the left renal pelvis with mild left hydronephrosis, calcifications along the distal right ureter representing phleboliths or nonobstructing right ureteral calculi, no right hydronephrosis or hydroureter. Bilateral nephrolithiasis. He was discharged with Flomax. He returned to ER due to uncontrolled left flank pain, chills, vomiting. Chart review: Creatinine on admission was 4.46, slight improvement to 4.29 this am with IV fluids. Potassium initially 5.6, down to 5.4 today. No leukocytosis, afebrile. UA with 5-10 RBCs, epithelial cells, otherwise unremarkable. Renal US showed mild right hydronephrosis, new since CT on 10/08/2019. No significant change in mild to moderate left hydronephrosis. No ureteral calculi identified. Bilateral nephrolithiasis. Multiple left renal cyst. KUB showed no change in position of the 6 mm left UPJ calculus, suspected 8 mm x 4 mm distal right ureteral calculus, bilateral nephrolithiasis. Feeling better this morning, laying in bed. Pain is controlled. No nausea or vomiting. No urgency, dysuria, or hematuria. at bedside. History of stone disease. Previously followed with Dr. Acevedo. Per report, has had stents in the past. Would like to switch to [facility]. 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 Allergies Allergy/AdvReac Type Severity Reaction Status Date / Time Zocor TABS AdvReac Mild nausea, Uncoded 10/10/19 16:20 vomiting Home Medications Home Medications Medication Instructions Recorded Confirmed Type metoprolol succinate 100 mg 200 mg PO QAM #180 tab 07/23/19 10/10/19 History tablet,extended release 24 hr nystatin 100,000 unit/gram topical 1 appln TOP BID PRN gm 07/23/19 10/10/19 History cream tadalafil 20 mg tablet 20 mg PO DAILY PRN #18 tab 07/23/19 10/10/19 History zolpidem 12.5 mg tablet,extended 12.5 mg PO HS PRN tab 07/23/19 10/10/19 History release,multiphase nitroglycerin 0.4 mg sublingual 0.4 mg SL UD PRN #25 tab 07/27/19 10/10/19 History tablet allopurinol 300 mg PO HS 10/07/19 10/10/19 History amlodipine 5 mg PO QAM 10/07/19 10/10/19 History aspirin [Aspir-81] 81 mg PO QAM 10/07/19 10/10/19 History atorvastatin 40 mg PO HS 10/07/19 10/10/19 History celecoxib 200 mg PO BID 10/07/19 10/10/19 History furosemide 40 mg PO QAM 10/07/19 10/10/19 History hydrocodone-acetaminophen 1 tab PO BID PRN 10/07/19 10/10/19 History lisinopril 5 mg PO HS 10/07/19 10/10/19 History metformin 1,000 mg PO HS 10/07/19 10/10/19 History omeprazole 20 mg PO QAM 10/07/19 10/10/19 History venlafaxine 225 mg PO HS 10/07/19 10/10/19 History cefdinir 300 mg PO BID 10 Days #20 cap 10/08/19 10/10/19 Rx ondansetron HCl [Zofran] 4 mg PO Q6 PRN #6 tab 10/08/19 10/10/19 Rx oxycodone 5 mg PO DAILY PRN #14 tab 10/08/19 10/10/19 Rx tamsulosin [Flomax] 0.4 mg PO HS #10 cap 10/08/19 10/10/19 Rx Patient History Medical History CAD (coronary artery disease) Erectile dysfunction (Chronic) GERD (gastroesophageal reflux disease) Gout (Chronic) Hypertension (Chronic) PAD (peripheral artery disease) (Acute 08/22/14) Type II diabetes mellitus Surgical History H/O repair of rotator cuff History of cholecystectomy History of hip replacement History of hip surgery History of lumbar surgery S/P CABG x 3 Family History Aunt Myocardial infarction Bone cancer Grandfather (Paternal) Myocardial infarction Father Myocardial infarction Uncle Bone cancer Brain cancer Prostate cancer Mother Breast cancer Diabetes Social History Preferred Language: Citizen Of [place] Communication Ability: Effective Visual Impairment: No Limitations Hearing Ability: Normal Veneer Splicer Required: No Beliefs That Will Affect Care: None marital status: Current Living Situation: Spouse Current Living Situation Comment: House current occupational status: disabled Feels Safe at Home: Yes Smoking Status: Never smoker Age Quit Using Tobacco: 37 ; packs per day: 2 ; Cigarettes Per Day: 20-40 ; Second Hand Exposure: No ; Hx Alcohol Use: No Hx Substance Use: No Review of Systems Review of Systems: All systems reviewed & are unremarkable except as noted in HPI & below Physical Exam Physical Exam: Obese, NAD, nontoxic appearing Respiratory effort normal Abd nondistended AOx3, appropriate Results & Data Vital Signs (Past 12 Hours) Vital Signs Temp Pulse Pulse Resp BP BP Pulse Ox 10/11/19 07:17 36.6 C 83 18 156/75 H 90 10/11/19 04:30 164/82 H 10/11/19 04:00 36.9 C 91 H 20 161/75 H 92 10/11/19 00:00 81 10/10/19 23:27 36.8 C 82 20 142/64 H 92 PG Care Time/CCT Total # of Minutes Spent Total Time Spent with Patient: Total time spent is greater than 50% in coordinat ion of care (as documented) at patient's floor/unit and/or counseling patient: (1) Hydronephrosis Hydronephrosis type: unspecified Qualified Code(s): N13.30 - Unspecified hydronephrosis
--- NOTE | 2019-10-11 10:58 | Hospitalist Progress Note ---
Date of Service October 11, 2019 Assessment & Plan (1) Bilateral ureteral calculi: Patient is a 59 year old male with PMHx Renal stones, Gout, DM2, GERD, HLD, HTN who presents with chief complaint of L flank pain with associated nausea, vomiting, chills, who failed outpatient treatment for a 6mm obstructing L sided stone and found to have a 8.2mm R sided stone on ultrasound upon admission. Bilateral Ureteral Calculi and associated Renal Colic and Hydronephrosis -6mm obstructing stone noted on initial CTA, KUB and noted an 8x4mm stone in the R ureter as well with b/l hydronephrosis -Pain and Nausea control with Zofran and Dilaudid PRN -NSS 125ml/hr -Continue to strain urine -Continue Flomax -Rocephin started due to b/l stones and concern for kidney obstruction. -Urology consulted, appreciate recs -Plan for cysto, bilateral retrograde pyelogram and bilateral stent placement later today. TANYA - post obstructive -Creatinine improved to 4.29 from 4.46 yesterday -Baseline creatinine 1.09 -Holding Celecoxib, lisinopril, lasix, metformin. HTN -Hold lisinopril and lasix until TANYA resolves. GERD -Continue omeprazole. DM2 -Holding Metformin until TANYA resolves -SSI CAD -Continue Nitro PRN -Continue Metoprolol -Continue ASA HLD -Continue Atorvastatin Gout -Continue Allopurinol FEN/GI - NPO, NSS 125ml/hour DVT - SCD Code - Full Dispo - M/S with Tele (2) Renal colic: (3) Hydronephrosis due to obstruction of bladder: (4) Acute kidney injury: (5) Hypertension: (6) GERD (gastroesophageal reflux disease): (7) Type II diabetes mellitus: (8) CAD (coronary artery disease): (9) Hyperlipidemia: (10) Gout: Supervising Physician Co-Signing Physician Notes Resident Physician Supervision Note: I independently interviewed and examined the patient and verified the jones history and physical, reviewed labs and image studies, discussed the case with the resident Dr. Zhang and agree with the findings and care plan. Subjective Patient seen and evaluated this morning at the bedside. Notes that his pain is currently well controlled and states it is a 5/10 primarily in his L lower back and will occasionally radiate into his L scrotum. States he was having pain with urination last night and some chills, but that have since resolved. Notes a significant past history of multiple kidney stones and that he has undergo lithotripsy in the past. No other concerns at this time. Review of Systems Constitutional: no fever, no chills (last night, since resolved), no sweats and no malaise Eyes: no photophobia Ear, Nose, Mouth, Throat: no tinnitus and no dizziness Respiratory: no cough, no dyspnea and no pain on inspiration Cardiovascular: no chest pain, no dyspnea, no dyspnea on exertion and no palpitations Gastrointestinal: no abdominal pain, no nausea, no vomiting and no constipation Genitourinary: + dysuria (last night), + flank pain (L sided) and + genital pain (scrotal pain on L ); no hematuria Musculoskeletal: + back pain (L low back) Integumentary: no rash Physical Exam Constitutional: WD/WN, vitals as above Respiratory: normal respiratory effort, lungs clear to auscultation Cardiovascular: RRR, no murmur, no edema Gastrointestinal (Abdomen): Inspection/Auscultation: abdomen normal to inspection and normal bowel sounds; abdomen not distended Percussion/Palpation: + abdomen tender (TTP LLQ) Skin: no rashes, warm and dry Genitourinary: + CVA tenderness (L ) Results & Data Vital Signs (Past 12 Hours) Vital Signs Temp Pulse Pulse Resp BP BP Pulse Ox 10/11/19 07:17 36.6 C 83 18 156/75 H 90 10/11/19 04:30 164/82 H 10/11/19 04:00 36.9 C 91 H 20 161/75 H 92 10/11/19 00:00 81 10/10/19 23:27 36.8 C 82 20 142/64 H 92 Laboratory Results Abnormal lab results 10/10/19 10/10/19 10/10/19 Range/Units 16:23 16:23 17:55 RBC 4.23 L (4.7-6.1) M/uL Hgb 13.5 L (14.0-18.0) g/dL Hct 40.2 L (42-52) % RDW Std Deviation 47.9 H (36.4-46.3) fL MPV 10.9 H (7.4-10.4) fL Immature Gran # (Auto) 0.03 H (0.00-0.02) K/uL Neut # (Auto) 7.11 H (1.4-6.5) K/uL [place]ombs # (Auto) 0.69 H (0.11-0.59) K/uL Sodium 132 L (136-145) mmol/L Potassium 5.6 H (3.5-5.1) mmol/L BUN 42 H (7-18) mg/dl Creatinine 4.46 H (0.6-1.4) mg/dl BUN/Creatinine Ratio 9.3 L (10-20) Glucose 131 H (70-99) mg/dl POC Glucose (70-99) Hemoglobin A1c (4.5-5.6) % Calcium (8.5-10.1) mg/dl Magnesium (1.8-2.4) mg/dl Albumin 3.2 L (3.4-5.0) gm/dl Albumin/Globulin Ratio 0.8 L (0.9-2) Lipase 772 H (73-393) U/L Urine Blood Trace H (Negative) Urine RBC (Auto) 5-10 H (0-4) /hpf U Epithel Cells (Auto) >30 H (0-5) /lpf 10/10/19 10/11/19 10/11/19 Range/Units 20:06 05:40 05:40 RBC 3.91 L (4.7-6.1) M/uL Hgb 12.1 L (14.0-18.0) g/dL Hct 37.1 L (42-52) % RDW Std Deviation 48.5 H (36.4-46.3) fL MPV 10.8 H (7.4-10.4) fL Immature Gran # (Auto) (0.00-0.02) K/uL Neut # (Auto) (1.4-6.5) K/uL [place]ombs # (Auto) (0.11-0.59) K/uL Sodium 134 L (136-145) mmol/L Potassium 5.4 H (3.5-5.1) mmol/L BUN 40 H (7-18) mg/dl Creatinine 4.29 H (0.6-1.4) mg/dl BUN/Creatinine Ratio 9.3 L (10-20) Glucose 136 H (70-99) mg/dl POC Glucose 101 H (70-99) Hemoglobin A1c (4.5-5.6) % Calcium 8.0 L (8.5-10.1) mg/dl Magnesium 1.7 L (1.8-2.4) mg/dl Albumin (3.4-5.0) gm/dl Albumin/Globulin Ratio (0.9-2) Lipase (73-393) U/L Urine Blood (Negative) Urine RBC (Auto) (0-4) /hpf U Epithel Cells (Auto) (0-5) /lpf 10/11/19 10/11/19 Range/Units 05:40 07:36 RBC (4.7-6.1) M/uL Hgb (14.0-18.0) g/dL Hct (42-52) % RDW Std Deviation (36.4-46.3) fL MPV (7.4-10.4) fL Immature Gran # (Auto) (0.00-0.02) K/uL Neut # (Auto) (1.4-6.5) K/uL [place] # (Auto) (0.11-0.59) K/uL Sodium (136-145) mmol/L Potassium (3.5-5.1) mmol/L BUN (7-18) mg/dl Creatinine (0.6-1.4) mg/dl BUN/Creatinine Ratio (10-20) Glucose (70-99) mg/dl POC Glucose 116 H (70-99) Hemoglobin A1c 6.4 H (4.5-5.6) % Calcium (8.5-10.1) mg/dl Magnesium (1.8-2.4) mg/dl Albumin (3.4-5.0) gm/dl Albumin/Globulin Ratio (0.9-2) Lipase (73-393) U/L Urine Blood (Negative) Urine RBC (Auto) (0-4) /hpf U Epithel Cells (Auto) (0-5) /lpf Medications Administered Current Inpatient Medications Acetaminophen (Tylenol) 650 mg PO Q4H PRN PRN Reason: mild pain or fever Stop: 11/09/19 19:45 Allopurinol (Zyloprim) 300 mg PO HS ROXY Stop: 11/09/19 20:59 Last Admin: 10/10/19 21:43 Dose: 300 mg Documented by: Amlodipine Besylate (Norvasc) 5 mg PO QAM [facility] Stop: 11/10/19 08:59 Last Admin: 10/11/19 07:36 Dose: 5 mg Documented by: Aspirin (Ecotrin Ectab) 81 mg PO QAM [facility] Stop: 11/10/19 08:59 Last Admin: 10/11/19 07:37 Dose: 81 mg Documented by: Atorvastatin Calcium (Lipitor) 40 mg PO [facility] Stop: 11/09/19 20:59 Last Admin: 10/10/19 21:44 Dose: 40 mg Documented by: Dextrose (Dextrose 50%) 25 - 50 ml IV UD PRN; Protocol PRN Reason: Hypoglycemia Protocol Stop: 11/09/19 19:45 Glucagon (Glucagen) 1 mg SQ UD PRN; Protocol PRN Reason: Hypoglycemia Protocol Stop: 11/09/19 19:45 Glucose (Dex4 Glucose) 4 - 8 tabs PO UD PRN; Protocol PRN Reason: Hypoglycemia Protocol Stop: 11/09/19 19:45 Glucose (Glucose 40%) 15 - 30 gm PO UD PRN; Protocol PRN Reason: Hypoglycemia Protocol Stop: 11/09/19 19:45 Hydralazine HCl (Hydralazine Hcl) 10 mg IV Q4H PRN PRN Reason: Systolic BP > 160 or diastolic >95 Stop: 11/09/19 20:08 Last Admin: 10/11/19 04:39 Dose: 10 mg Documented by: Hydromorphone HCl (Dilaudid) 0.5 mg IV Q3H PRN PRN Reason: Moderate Pain Stop: 10/24/19 19:45 Hydromorphone HCl (Dilaudid) 1 mg IV Q3H PRN PRN Reason: Severe Pain Stop: 10/24/19 19:45 Last Admin: 10/11/19 07:40 Dose: 1 mg Documented by: Sodium Chloride (Nss 1000ml) 1,000 mls @ 125 mls/hr IV .Q8H [facility] Stop: 11/09/19 19:45 Last Admin: 10/11/19 04:28 Dose: 125 mls/hr Documented by: Ceftriaxone Sodium 2,000 mg/ (Dextrose) 50 mls @ 100 mls/hr IV Q24H ROXY; Protocol Stop: 10/15/19 21:59 Last Infusion: 10/10/19 22:44 Dose: Infused Documented by: Ciprofloxacin Lactate (Cipro / D5w) 200 mg in 100 mls @ 100 mls/hr IV TODAY@1100 [facility]; Protocol Stop: 10/11/19 18:00 Insulin Aspart (Novolog Flexpen) 0 units SC [facility] Stop: 11/09/19 20:59 Last Admin: 10/11/19 08:19 Dose: Not Given Documented by: Metoprolol Succinate (Toprol Xl) 200 mg PO [facility] Stop: 11/10/19 08:59 Last Admin: 10/11/19 07:36 Dose: 200 mg Documented by: Miscellaneous (Carbohydrates For Hypoglycemia) 15 - 30 gm PO UD PRN PRN Reason: Hypoglycemia Protocol Stop: 11/09/19 19:45 Nitroglycerin (Nitrostat) 0.4 mg SL PRN PRN PRN Reason: Chest Pain Stop: 11/09/19 19:45 Ondansetron HCl (Zofran) 4 mg IV Q6H PRN PRN Reason: nausea or vomiting Stop: 11/09/19 19:45 Pantoprazole Sodium (Protonix) 40 mg PO [facility]; Protocol Stop: 11/10/19 08:59 Last Admin: 10/11/19 07:37 Dose: 40 mg Documented by: Tamsulosin HCl (Flomax) 0.4 mg PO [facility] Stop: 11/09/19 20:59 Last Admin: 10/10/19 21:43 Dose: 0.4 mg Documented by: Venlafaxine HCl (Effexor Extended Release) 225 mg PO [facility] Stop: 11/09/19 20:59 Last Admin: 10/10/19 21:44 Dose: 225 mg Documented by: Zolpidem Tartrate (Ambien) 10 mg PO HS PRN PRN Reason: Sleep Stop: 11/09/19 21:11
[2019-10-11] MEDS ORDERED: CIPROFLOXACIN / D5W 200 MG/100 ML BAG IV SCH (11:00)
--- NOTE | 2019-10-11 11:36 | XRay Report ---
XR chest 2V PA/lateral HISTORY: preop COMPARISON: Chest 12/29/2015. FINDINGS: There are low lung volumes. The heart is top normal in size. Poststernotomy changes. Linear densities are seen within the base of the bilateral lower lobes. The upper lung zones are clear. No evidence for pulmonary edema. IMPRESSION: Bilateral lower lobe basilar linear densities. This is nonspecific but favor subsegmental atelectasis or scarring. A pneumonia could also have a similar appearance in the appropriate clinical setting. ACT 112: Negative or not required by law. Electronically signed by: Juwan Mo M.D. 10/11/2019 11:34 AM
[2019-10-11] MEDS ORDERED: PROPOFOL IV EMULSION 10 MG/ML 20 ML VIAL IV ONE ×2 (13:58→14:58)
[2019-10-11] MEDS ORDERED: ONDANSETRON INJ 2 MG/ML 2 ML VIAL ONE (13:58)
[2019-10-11] MEDS ORDERED: MIDAZOLAM HCL 1 MG/ML 2ML VIAL ONE (13:58)
[2019-10-11] MEDS ORDERED: DEXAMETHASONE SOD INJ 4 MG/ML VIAL ONE (13:58)
[2019-10-11] MEDS ORDERED: LIDOCAINE HCL 2% 2 ML VIAL/AMP(20MG/ML) INFIL ONE (13:58)
[2019-10-11] MEDS ORDERED: fentaNYL citrate 100 MCG/2 ML VIAL ONE (13:58)
[2019-10-11] MEDS ORDERED: IOTHALAMATE MEGLUMINE II 17.2% 250 ML VIAL ONE (14:11)
--- NOTE | 2019-10-11 14:17 | Anesthesiology Consultation ---
Date of Service October 11, 2019 Morbid Obesity ELLA CABG PAD GERD TANYA HTN Assessment & Plan (1) Encounter for pre-operative examination: Chart Review Chart Review: Acceptable Risk for Surgery and Patient NOT seen in Pre Admission Testing Consults Requested none Proposed Anesthesia Risk / Benefits Reviewed With: PT / POA / Parent / Guardian, Accepts Plan and Informed Consent Obtained History Surgery Operation Date: 10/11/19 10:20 Proposed Procedures p Cystoscopy, Bilateral Retrograde Pyelogram, Bilateral Stent Placement - Austin Arechiga MD Height/Weight Height: 5 ft 8 in Weight: 120.4 kg Allergies Allergy/AdvReac Type Severity Reaction Status Date / Time Zocor TABS AdvReac Mild nausea, Uncoded 10/10/19 16:20 vomiting Medications Home Medications Medication Instructions Recorded Confirmed Last Taken metoprolol succinate 100 mg 200 mg PO QAM #180 tab 07/23/19 10/10/19 10/10/19 tablet,extended release 24 hr nystatin 100,000 unit/gram topical 1 appln TOP BID PRN gm 07/23/19 10/10/19 Unknown cream tadalafil 20 mg tablet 20 mg PO DAILY PRN #18 tab 07/23/19 10/10/19 Unknown zolpidem 12.5 mg tablet,extended 12.5 mg PO HS PRN tab 07/23/19 10/10/19 Unkno wn release,multiphase nitroglycerin 0.4 mg sublingual 0.4 mg SL UD PRN #25 tab 07/27/19 10/10/19 Unknown tablet allopurinol 300 mg PO HS 10/07/19 10/10/19 10/09/19 amlodipine 5 mg PO QAM 10/07/19 10/10/19 10/10/19 aspirin [Aspir-81] 81 mg PO QAM 10/07/19 10/10/19 10/10/19 atorvastatin 40 mg PO HS 10/07/19 10/10/19 10/09/19 celecoxib 200 mg PO BID 10/07/19 10/10/19 10/10/19 furosemide 40 mg PO QAM 10/07/19 10/10/19 10/10/19 hydrocodone-acetaminophen 1 tab PO BID PRN 10/07/19 10/10/19 Unknown lisinopril 5 mg PO HS 10/07/19 10/10/19 10/09/19 metformin 1,000 mg PO HS 10/07/19 10/10/19 10/09/19 omeprazole 20 mg PO QAM 10/07/19 10/10/19 10/10/19 venlafaxine 225 mg PO HS 10/07/19 10/10/19 10/09/19 cefdinir 300 mg PO BID 10 Days #20 cap 10/08/19 10/10/19 10/10/19 ondansetron HCl [Zofran] 4 mg PO Q6 PRN #6 tab 10/08/19 10/10/19 10/09/19 oxycodone 5 mg PO DAILY PRN #14 tab 10/08/19 10/10/19 10/10/19 12:00 tamsulosin [Flomax] 0.4 mg PO HS #10 cap 10/08/19 10/10/19 10/09/19 Active Medications Generic Name Dose Route Start Last Admin Trade Name Freq PRN Reason Stop Dose Admin Allopurinol 300 mg 10/10/19 21:00 10/10/19 21:43 Zyloprim PO 11/09/19 20:59 300 mg HS ROXY Administration Amlodipine Besylate 5 mg 10/11/19 09:00 10/11/19 07:36 Norvasc PO 11/10/19 08:59 5 mg QAM ROXY Administration Aspirin 81 mg 10/11/19 09:00 10/11/19 07:37 Ecotrin Ectab PO 11/10/19 08:59 81 mg QAM ROXY Administration Atorvastatin Calcium 40 mg 10/10/19 21:00 10/10/19 21:44 Lipitor PO 11/09/19 20:59 40 mg HS ROXY Administration Hydralazine HCl 10 mg 10/10/19 20:09 10/11/19 04:39 Hydralazine Hcl IV 11/09/19 20:08 10 mg Q4H PRN Administration Systolic BP > 160 or diastolic >95 Hydromorphone HCl 1 mg 10/10/19 19:46 10/11/19 11:34 Dilaudid IV 10/24/19 19:45 1 mg Q3H PRN Administration Severe Pain Sodium Chloride 1,000 mls @ 125 mls/hr 10/10/19 19:46 10/11/19 13:45 Nss 1000ml IV 11/09/19 19:45 Infused .Q8H ROXY Infusion Ceftriaxone Sodium 2,000 mg/ 50 mls @ 100 mls/hr 10/10/19 22:00 10/10/19 22:44 Dextrose IV 10/15/19 21:59 Infused Q24H ROXY Infusion Protocol Ciprofloxacin Lactate 200 mg in 100 mls @ 100 mls/hr 10/11/19 11:00 10/11/19 13:43 Cipro / D5w IV 10/11/19 18:00 Infused TODAY@1100 ROXY Infusion Protocol Insulin Aspart 0 units 10/10/19 21:00 10/11/19 13:44 Novolog Flexpen SC 11/09/19 20:59 Not Given ACHS ROXY Metoprolol Succinate 200 mg 10/11/19 09:00 10/11/19 07:36 Toprol Xl PO 11/10/19 08:59 200 mg QAM ROXY Administration Ondansetron HCl 4 mg 10/10/19 19:46 10/11/19 11:34 Zofran IV 11/09/19 19:45 4 mg Q6H PRN Administration nausea or vomiting Pantoprazole Sodium 40 mg 10/11/19 09:00 10/11/19 07:37 Protonix PO 11/10/19 08:59 40 mg QAM ROXY Administration Protocol Tamsulosin HCl 0.4 mg 10/10/19 21:00 10/10/19 21:43 Flomax PO 11/09/19 20:59 0.4 mg HS ROXY Administration Venlafaxine HCl 225 mg 10/10/19 21:00 10/10/19 21:44 Effexor Extended Release PO 11/09/19 20:59 225 mg HS ROXY Administration NPO Date Last Intake of Fluids: 10/10/19 Time Last Intake of Fluids: 23:55 Last Intake of Fluids Comment: sip of water Date Last Intake of Solids: 10/10/19 Time Last Intake of Solids: 23:55 Past Medical History Medical History CAD (coronary artery disease) Erectile dysfunction (Chronic) GERD (gastroesophageal reflux disease) Gout (Chronic) Hypertension (Chronic) PAD (peripheral artery disease) (Acute 08/22/14) Type II diabetes mellitus Exercise / Class Metabolic Activity II 4-5 Yardwork/Stairs/Walk up hill Past Family History Family History Aunt Myocardial infarction Bone cancer Grandfather (Paternal) Myocardial infarction Father Myocardial infarction Uncle Bone cancer Brain cancer Prostate cancer Mother Breast cancer Diabetes Past Surgical History Surgical History H/O repair of rotator cuff History of cholecystectomy History of hip replacement History of hip surgery History of lumbar surgery S/P CABG x 3 Past Anesthesia History No Hx of Anesthesia Complications and No Family Hx of Anesthesia Complications History of PONV No Hx of PONV and No Hx of Motion Sickness Social History Smoking Status: Never smoker Smoking cigarettes per day: 20-40 Hx Alcohol Use: No Hx Substance Use: No Physical Exam Vital Signs Last Vital Signs Temp 36.7 C 10/11/19 14:05 Pulse 76 10/11/19 14:05 Resp 18 10/11/19 14:05 BP 142/75 H 10/11/19 14:05 Pulse Ox 93 10/11/19 14:05 Constitutional + morbidly obese ENMT Mouth: + edentulous Thyromental Distance: > or= 3.5 Finger Breadths Mallampati Class: II Neck normal visual inspection and + thick neck Respiratory normal respiratory effort Auscultation: lungs clear to auscultation bilaterally Cardiovascular Rate/Rhythm: regular rate and regular rhythm Psychiatric Orientation: alert Testing Laboratory Results 10/11/19 05:40 10/11/19 05:40 Hemoglobin A1c 6.4 % (4.5-5.6) H 10/11/19 05:40 Urine Color Yellow 10/10/19 17:55 Urine Appearance Clear (Clear) 10/10/19 17:55 Urine pH 5.0 (4.5-7.5) 10/10/19 17:55 Ur Specific [place] 1.019 (1.000-1.030) 10/10/19 17:55 Urine Protein Negative (Negative) 10/10/19 17:55 Urine Glucose (UA) Negative (Negative) 10/10/19 17:55 Urine Ketones Negative (Negative) 10/10/19 17:55 Urine Nitrite Negative (Negative) 10/10/19 17:55 Ur Leukocyte Esterase Negative (Negative) 10/10/19 17:55 Urine WBC (Auto) 1-5 /hpf (0-5) 10/10/19 17:55 Urine RBC (Auto) 5-10 /hpf (0-4) H 10/10/19 17:55 U Hyaline Cast (Auto) 1-5 /lpf (0-5) 10/10/19 17:55 U Epithel Cells (Auto) >30 /lpf (0-5) H 10/10/19 17:55 Urine Bacteria (Auto) Negative (Negative) 10/10/19 17:55 10/11/19 10/11/19 11:28 07:36 POC Glucose 93 116 H Electrocardiogram Date: 10/11/19 Findings: + NSR @ Chest X-Ray Date: 10/11/19 Findings: + NAD
[2019-10-11] MEDS ORDERED: KETAMINE HCL INJ 50 MG/ML 10 ML VIAL ONE (14:27)
--- NOTE | 2019-10-11 15:09 | Fluoroscopy Report ---
FL retrograde includes kub HISTORY: LEFT RETROGRADE AND STENT FLUOROSCOPY TIME: 30 seconds. FINDINGS: 4 fluoroscopic spot images were submitted for review. Bilateral retrograde opacification of the renal collecting systems with placement of bilateral ureteral stents. Only the proximal portion of the stents are visualized and appear in good position. IMPRESSION: Fluoroscopy provided for bilateral ureteral stent placement. ACT 112: Negative or not required by law. Electronically signed by: Juwan Mo M.D. 10/11/2019 3:08 PM
--- NOTE | 2019-10-11 15:14 | Operative Report ---
PG Post Operative Report Pre & Post Diagnosis Operation Date: 10/11/19 10:20 Pre-Op Diagnosis: Acute Kidney Injury, Hydronephrosis, Bilateral Obstructing Ureteral Stones Post-Op Diagnosis: Acute Kidney Injury, Hydronephrosis, Bilateral Obstructing Ureteral Stones I identified the patient and participated in the time-out.: Yes Procedure Operation Date: 10/11/19 10:20 Actual Procedures p Cystoscopy, Bilateral Retrograde Pyelogram, Bilateral Stent Placement(Bilateral) - Austin Arechiga MD Surgeon Austin Arechiga MD Hairspring Setter None Estimated Blood Loss 0 Findings Consistent with Post-Op Diagnosis Cystoscopy showed a normal anterior urethra prostatic fossa was obstructing with kissing lateral lobes and a very elevated median lobe bilateral retrograde showed bilateral hydronephrosis Specimens None Drains 6 Khmer by 26 cm left and right ureteral stents Anesthesia Type MAC Complications none Disposition Accompanied Patient To Recovery: Yes Disposition: Recovery Room Indications 59-year-old white male with acute renal failure secondary to bilateral obstructing ureteral calculi Description of Procedure After the induction of an adequate level of intravenous sedation appropriate timeout patient was placed in the dorsolithotomy position. Lower abdomen and genitalia were prepped with Hibiclens draped in a sterile fashion. Using a 22 Khmer cystoscope routine cystoscopic exam was performed the above-noted findings. Next using a 0.038 guidewire this was passed up the left ureter under fluoroscopic guidance. An open-ended catheter was then passed over the guidewire which was removed. Left retrograde pyelogram was performed. Guidewire was then rethreaded through the cystoscope under fluoroscopic guidance to position in the renal pelvis. The open-ended catheter was removed. 6 Khmer by 26 cm stent was passed up the left ureter under fluoroscopic guidance to p osition the renal pelvis confirmed by fluoroscopy the guidewire was removed there was good curl at the bladder level. An identical procedure was then performed on the right side after stenting both left and right kidneys patient's bladder was drained. Cystoscope and sheath removed. All needle sponge and instrument counts were correct at the end of the case. Patient tolerated the procedure well was taken recovery in stable condition. I attest to the content of the Intraoperative Record and any orders documented therein. Any exceptions are noted below.
--- NOTE | 2019-10-11 16:00 | Anesthesiology Progress Note ---
Date of Service October 11, 2019 Anesthesia Post Procedure Vital Signs Vital Signs: Temp Pulse Pulse Pulse Resp BP BP 10/11/19 15:20 36.6 C 93 H 20 106/50 L 10/11/19 15:10 91 H 13 151/83 H 10/11/19 15:03 36 C L 91 H 14 127/92 10/11/19 14:05 36.7 C 76 18 142/75 H 10/11/19 11:40 36.5 C 83 18 178/88 H 10/11/19 07:17 36.6 C 83 18 156/75 H 10/11/19 04:30 164/82 H 10/11/19 04:00 36.9 C 91 H 20 161/75 H 10/11/19 00:00 81 10/10/19 23:27 36.8 C 82 20 142/64 H 10/10/19 20:31 89 10/10/19 20:00 36.7 C 87 18 199/76 H 10/10/19 18:05 157/73 H 10/10/19 18:04 83 10/10/19 17:00 Pulse Ox 10/11/19 15:20 97 10/11/19 15:10 99 10/11/19 15:03 98 10/11/19 14:05 93 10/11/19 11:40 97 10/11/19 07:17 90 10/11/19 04:30 10/11/19 04:00 92 10/11/19 00:00 10/10/19 23:27 92 10/10/19 20:31 10/10/19 20:00 93 10/10/19 18:05 10/10/19 18:04 97 10/10/19 17:00 97 Pain Intensity Left Lower Back: Pain Intensity: 6 Transfer of Care Handoff Completed per policy Notes Mental Status: alert / awake / arousable Patient Amnestic to Procedure: Yes Nausea / Vomiting: adequately controlled Pain: adequately controlled Airway Patency, RR, SpO2: stable & adequate BP & HR: stable & adequate Hydration State: stable & adequate Anesthetic Complications: no major complications apparent
[2019-10-11] MEDS: TAMSULOSIN HCL 0.4 MG CAP PO SCH (20:35)
[2019-10-11] MEDS: VENLAFAXINE HCL XR 75 MG CAPXR PO SCH (20:36)
[2019-10-11] MEDS: allopurinoL 300 MG TAB PO SCH (20:36)
[2019-10-11] MEDS: ATORVASTATIN 40 MG TAB PO SCH (20:36)
[2019-10-11] MEDS ORDERED: Nursing to Pharmacy Communication ONE (20:38)
[2019-10-11] MEDS: cefTRIAXone SODIUM 2,000 MG in DEXTROSE 5% 50 ML IV SCH (22:27)
[2019-10-11] MEDS: HYDROmorphone INJ 0.5 MG/0.5 ML SYR IV PRN (23:38)
[2019-10-12] MEDS: SODIUM CHLORIDE 0.9% 1000ML 1,000 ML IV SCH ×2 (00:21→07:38)
[2019-10-12] MEDS: PANTOprazole 40 MG TAB PO SCH (07:40)
[2019-10-12] MEDS: AMLODIPINE BESYLATE 5 MG TAB PO SCH (07:40)
[2019-10-12] MEDS: ASPIRIN 81 MG ECTAB PO SCH (07:40)
[2019-10-12] MEDS: METOPROLOL SUCC 50MG EXT REL TAB PO SCH (07:40)
[2019-10-12 08:10] LABS: Hematocrit (blood only) 35.9 % (42-52); Hemoglobin 11.6 g/dL (14.0-18.0); Mean Corpuscular Hgb Conc 32.3 g/dL (32-36); Mean Platelet Volume 11.2 fL (7.4-10.4); Platelet Count 144 K/uL (130-400); RDW Standard Deviation 49.3 fL (36.4-46.3); Red Blood Count 3.74 M/uL (4.7-6.1); White Blood Count 7.21 K/uL (4.8-10.8)
[2019-10-12] MEDS: INSULIN ASPART 100 UNITS/ML 3 ML PEN SC SCH ×2 (08:23→12:18)
[2019-10-12] MEDS: HYDROmorphone INJ 1 MG/ML SYRINGE IV PRN (08:25)
[2019-10-12 08:57] LABS: BUN Creatinine Ratio 10.6 (10-20); Calcium 9.1 mg/dl (8.5-10.1); Creatinine Clr Calc Pharmacy 36.8 ml/min; Est GFR (African American) 28.3; Est GFR (Non-African American) 24.4; Potassium 5.4 mmol/L (3.5-5.1)
[2019-10-12 11:31] VITALS: BP 178/73; PULSE 81; TEMP 99; O2SAT 93
[2019-10-12] MEDS: HydrALAZINE HCL 20 MG/ML VIAL IV PRN (11:34)
--- NOTE | 2019-10-12 13:59 | Urology Progress Note ---
Date of Service October 12, 2019 Assessment & Plan (1) Bilateral ureteral calculi: 59 yo M admitted with TANYA, hydronephrosis, renal colic secondary to 6 mm left UPJ and 8 mm distal right ureteral calculi POD #1 s/p bilateral stent placement. Renal function improved significantly s/p stenting. Doing well from standpoint. Pt evaluated by Dr. Thomas at bedside, discussed plan of care moving forward. Plan for staged URS to clear large stone burden. Will see as outpatient on 10/16 at 2pm with repeat labs to assess kidney function. Followup added to discharge instructions. Okay to discharge home from perspective. Thank you for allowing us to participate in the acute care of Mr. Holman. Please reconsult us with additional questions, concerns or changes in patient status. Subjective Pt tolerating stents with mild discomfort as expected Some complaints of sharp pain at times. Voiding spontaneously without difficulty Denies n/v/f/c. Review of Systems Review of Systems: All systems reviewed & are unremarkable except as noted in HPI & below Physical Exam Physical Exam: A&Ox3 RRR abd soft, obese Results & Data Vital Signs (Past 12 Hours) Vital Signs Temp Pulse Pulse Pulse Resp BP Pulse Ox 10/12/19 11:31 37.2 C 81 18 178/73 H 93 10/12/19 09:17 79 10/12/19 07:20 37 C 75 18 171/76 H 94 10/12/19 03:05 36.8 C 74 20 128/60 95 PG Care Time/CCT Total # of Minutes Spent Total Time Spent with Patient: Total time spent is greater than 50% in coordination of care (as documented) at patient's floor/unit and/or counseling patient:
[2019-10-12] MEDS: HYDROmorphone INJ 0.5 MG/0.5 ML SYR IV PRN (14:01)
--- NOTE | 2019-10-12 15:53 | Discharge Summary ---
Date of Service October 12, 2019 Admission HPI Per Admitting Provider 59 y/o male presented to the ED with continue Left flank pain radiating into the left testicle not controlled with oral pain medication. He was seen in the ED 2 days prior and was diagnosed with Left ureteral stone. KUB today shows persistent stone on the Left and questionable stone in the Right ureter. Also his creat jumped from 1.8 on 10/08/19 to 4.46 today. His baseline creat is 1.09. + Nausea. No F/C, cough, chest pain, SOB, hematuria, or vomiting. Admission Exam Per Admitting Provider General- adult male, NAD Head- atraumatic Eyes- PERRL, EOMI, anicteric ENT- oropharynx clear Neck- supple, no JVD, no adenopathy, no thyromegaly. Lungs- CTA b/l no R/R/W Heart- regular rhythm; no murmur, no gallop, no rub appreciated Abdomen- normal bowel sounds, soft, nontender. Extremities- no pretibial edema, no calf tenderness; peripheral pulses intact Neuro- alert, oriented x 3; PERRL, EOMI; community relations officer II-XII grossly intact, Non-focal. Skin- warm & dry Principal Diagnosis B/l Ureteral stones Discharge Exam Constitutional WD/WN, vitals as above Respiratory normal respiratory effort, lungs clear to auscultation Cardiovascular RRR, no murmur, no edema Gastrointestinal (Abdomen) Inspection/Auscultation: abdomen normal to inspection and normal bowel sounds; abdomen not distended Percussion/Palpation: + abdomen tender (TTP LLQ, improved since yesterday) Skin no rashes, warm and dry Genitourinary + CVA tenderness (L, reduced since yesterday) Discharge Data Allergies Allergy/AdvReac Type Severity Reaction Status Date / Time Zocor TABS AdvReac Mild nausea, Uncoded 10/10/19 16:20 vomiting Consultations 10/10/19 18:09 ED Decision to Admit Stat 10/10/19 19:46 Consult Urology Routine Procedures Performed Operation Date: 10/11/19 10:20 Actual Procedures p Cystoscopy, Bilateral Retrograde Pyelogram, Bilateral Stent Placement(Bilateral) - Austin Arechiga MD Ordered Studies 10/10/19 16:08 US renal/blad retro comp Stat 10/11/19 13:00 FL retrograde includes kub Routine Hospital Course (1) Bilateral ureteral calculi: Patient is a 59 year old male with PMHx Renal stones, Gout, DM2, GERD, HLD, HTN who presents with chief complaint of L flank pain with associated nausea, vomiting, chills, who failed outpatient treatment for a 6mm obstructing L sided stone and found to have a 8.2mm R sided stone on ultrasound upon admission. Bilateral Ureteral Calculi and associated Renal Colic and Hydronephrosis -6mm obstructing stone noted on initial CTA, KUB and noted an 8x4mm stone in the R ureter as well with b/l hydronephrosis -Pain and Nausea were control with Zofran and Dilaudid PRN -NSS 125ml/hr hydration given to patient to promote movement of stones. -Continued to strain urine -Continued Flomax -Rocephin was started due to b/l stones and concern for kidney obstruction. -Urology consulted -Patient underwent bilateral ureteral stent placement. -Patient discharged with antibiotics, pain controlling medication, flomax, and expectation to follow up with Urology the following week. TANYA - post obstructive -Creatinine improved to 2.71 from 4.46 on admission. -Baseline creatinine 1.09 -Held Celecoxib, lisinopril, lasix, metformin. HTN -Hold lisinopril and lasix until TANYA resolves. GERD -Continued omeprazole. DM2 -SSI while inpatient -Held Metformin. to resume on discharge CAD -Continued Nitro PRN -Continued Metoprolol -Continue ASA HLD -Continued Atorvastatin Gout -Continued Allopurinol FEN/GI - DM2, Low K DVT - SCD while inpatient Code - Full Dispo - Home (2) Renal colic: (3) Hydronephrosis due to obstruction of bladder: (4) Acute kidney injury: (5) Hypertension: (6) GERD (gastroesophageal reflux disease): (7) Type II diabetes mellitus: (8) CAD (coronary artery disease): (9) Hyperlipidemia: (10) Gout: Total Time Total Time Spent Total Time Spent (In Minutes): see attending attestation Discharge Plan Discharge Items Patient Disposition: Home - Self-Care Reason For Visit: ACUTE KIDNEY INJURY, B/L URETERAL STONES Discharge Diagnosis: B/L Ureteral Stones Condition on Discharge: Good Activity: Per Instructions section Non-emergency contact: Primary Care Provider and Urologist Call non-emergency contact if: you have any medication questions, your symptoms worsen and your pain is not controlled Follow-up/Referrals: Pro,Yoandy Whitley MD [Primary Care Provider] - Antonio,DEANNA Kerr [Nurse Practitioner] - 10/16/19 2:00 pm (Please go for labs prior to appointment, order has been placed. ) Diet: Regular Addtl Attending Provider Instructions: Mr. Holman, Blayne were seen and evaluated at [facility] from 10/10/19-10/12/19 for bilateral kidney stones. You underwent stenting with urology which you noted had improved your symptoms. You were also treated medically with pain control and nausea con trolling medications. Please attend your follow up appointment with Urology as scheduled. If you have any questions, please call your Urologist. Otherwise, see below for notes from your urology provider. Notes from your urology provider: Please take all medications as prescribed and keep all follow-ups as scheduled. Please call our office at [phone] with any questions, concerns or need to reschedule appointments for any reason. We are happy to assist you. While you have a ureteral stent in place: Some discomfort is normal. Certain movements may trigger pain or a feeling that you need to urinate. You may also feel mild soreness or pressure before or during urination. These symptoms should go away a few days after the stent is removed. Your urine may be slightly pink or red. This is due to bleeding caused by minor irritation from the stent. This may happen on and off while you have the stent, it is not harmful and is to be expected. Medication to help minimize discomfort or bladder spasms, or to prevent infection may be prescribed. Take this as directed. Drink plenty of fluids to help flush out your urinary tract. If you go home with a catheter, wash with soapy water and a fresh washcloth twice daily. We recommend mild bar soap such as Dial or Dove. How long will you need a stent? An appointment should already be made for you for stent removal, unless directed otherwise. The stent is often taken out after the blockage in the ureter is treated or the ureter has healed. This may take 1-2 weeks, or longer. If a stent is needed for a longer period of time, it may need to be exchanged every few months. Likely prior to your followup appointment you will be asked to get an X-ray, please complete this the night before or morning of your appointment. When to call [facility] U[facility] at [phone]: Your urine contains heavy blood clots You are constantly leaking urine Fever of 101F or higher, chills, nausea, or vomiting Your pain is not relieved with medication The end of the stent comes out of your urethra Pending Studies at Discharge: No Stand-Alone Forms: My [facility] [place], Smoking Cessation Medications and DC Order Prescriptions: New hydrocodone-acetaminophen [[place]] 5-325 mg tablet 1 tab PO DAILY PRN (Reason: pain) Qty: 7 RF: 0 phenazopyridine [Pyridium] 100 mg tablet 100 mg PO TID PRN (Reason: pain) Qty: 6 RF: 0 tamsulosin 0.4 mg Capsule 0.4 mg PO HS 5 Days Qty: 5 RF: 0 cefdinir 300 mg capsule 300 mg PO BID 5 Days Qty: 10 RF: 0 Continued nystatin 100,000 unit/gram cream 1 appln TOP BID PRN (Reason: Skin Irritation) RF: 0 zolpidem 12.5 mg tablet,ext release multiphase 12.5 mg PO HS PRN (Reason: insomnia) RF: 0 metoprolol succinate 100 mg tablet extended release 24 hr 200 mg PO QAM Qty: 180 RF: 0 tadalafil 20 mg tablet 20 mg PO DAILY PRN (Reason: sexual activity) Qty: 18 RF: 0 nitroglycerin 0.4 mg tablet, sublingual 0.4 mg SL UD PRN (Reason: Chest Pain) Qty: 25 RF: 0 allopurinol 300 mg tablet 300 mg PO HS RF: 0 amlodipine 5 mg tablet 5 mg PO QAM RF: 0 aspirin [Aspir-81] 81 mg Tablet,Delayed Release (Dr/Ec) 81 mg PO QAM RF: 0 atorvastatin 40 mg tablet 40 mg PO HS RF: 0 celecoxib 200 mg capsule 200 mg PO BID RF: 0 furosemide 40 mg tablet 40 mg PO QAM RF: 0 lisinopril 5 mg tablet 5 mg PO HS RF: 0 metformin 500 mg tablet extended release 24 hr 1,000 mg PO HS RF: 0 omeprazole 20 mg capsule,delayed release(DR/EC) 20 mg PO QAM RF: 0 venlafaxine 225 mg tablet extended release 24hr 225 mg PO HS RF: 0 oxycodone 5 mg tablet 5 mg PO DAILY PRN (Reason: pain) Qty: 14 RF: 0 ondansetron HCl [Zofran] 4 mg tablet 4 mg PO Q6 PRN (Reason: nausea and vomiting) Qty: 6 RF: 0 tamsulosin [Flomax] 0.4 mg capsule 0.4 mg PO HS Qty: 10 RF: 0 Discharge Orders: Discharge Order (Routine); Ordered 10/12/19 Ordered By: Nikolas Zhang Admission Data Admit Date/Time: 10/10/19 18:39 Attending Provider: Karyn Hensley Admit Provider: Db Julian Primary Care Provider: Yoandy Javed Other Providers: Db Julian ; Parker Pollock I. Other Interventions: Discharge Summary Assessment (RN) Last Done: 10/12/19 15:09 DC Date/Time DO NOT enter until pt leaves facility: 10/12/19 15:45 Supervising Physician Co-Signing Physician Notes Resident Physician Supervision Note: I independently interviewed and examined the patient and verified the jones history and physical, reviewed labs and image studies, discussed the case with the resident Dr. Zhang and agree with the findings and care plan. Resident Activity Tracking Resident Involvement: Resident Care Provided Care Provided: Adult Hospital Medicine
== END 2019-10-12 15:45 | disposition home or self-care (01) | DRG 661 ==
LOC: ED 15:49 → SUATTDRO 18:39 → 2W 18:39

== ENCOUNTER 2022-10-09 06:39 | Observation (INO) ==
--- NOTE | 2022-09-16 10:07 | PAT Medication Instructions ---
Medication Instructions Date of Service September 16, 2022 Home Medications Medication Instructions Recorded triamcinolone acetonide 0.1 % 1 applic topical BID #80 grams 02/15/20 topical cream nitroglycerin 0.4 mg sublingual 0.4 mg sublingual UD PRN Chest 09/10/20 tablet Pain #25 tabs ondansetron HCl 4 mg tablet 4 mg PO Q6 PRN nausea and vomiting 10/15/20 (Zofran) #20 tabs allopurinol 300 mg tablet 300 mg PO HS #90 tabs 11/11/21 amlodipine 5 mg tablet 5 mg PO QAM #90 tabs 11/11/21 atorvastatin 40 mg tablet 40 mg PO HS #90 tabs 11/11/21 furosemide 40 mg tablet 40 mg PO QAM #90 tabs 11/11/21 metoprolol succinate 100 mg 150 mg PO QAM #135 tabs 11/11/21 tablet,extended release 24 hr omeprazole 20 mg capsule,delayed 20 mg PO QAM #90 caps 11/11/21 release tamsulosin 0.4 mg capsule (Flomax) 0.4 mg PO HS #90 caps 11/11/21 lisinopril 5 mg tablet 5 mg PO HS #90 tabs 01/14/22 venlafaxine 225 mg tablet,extended 225 mg PO HS #90 tabs 01/14/22 release 24 hr tramadol 50 mg tablet 50 mg PO BID #60 tabs 08/27/22 nystatin 100,000 unit/gram topical cream 1 appln topical BID PRN Skin Irritation aspirin 81 mg tablet,delayed release (Aspir-) 81 mg PO QAM triamcinolone acetonide 0.1 % topical cream 1 applic topical BID nitroglycerin 0.4 mg sublingual tablet 0.4 mg sublingual UD PRN Chest Pain ondansetron HCl 4 mg tablet (Zofran) 4 mg PO Q6 PRN nausea and vomiting allopurinol 300 mg tablet 300 mg PO HS amlodipine 5 mg tablet 5 mg PO QAM atorvastatin 40 mg tablet 40 mg PO HS furosemide 40 mg tablet 40 mg PO QAM metoprolol succinate 100 mg tablet,extended release 24 hr 150 mg PO QAM omeprazole 20 mg capsule,delayed release 20 mg PO QAM tamsulosin 0.4 mg capsule (Flomax) 0.4 mg PO HS lisinopril 5 mg tablet 5 mg PO HS venlafaxine 225 mg tablet,extended release 24 hr 225 mg PO HS tramadol 50 mg tablet 50 mg PO BID lorazepam 0.5 mg tablet 0.5 mg PO HS PRN anxiety/insomnia prednisone 5 mg tablet 5 mg PO QAM tadalafil 20 mg tablet (Cialis) 20 mg PO DAILY PRN sexual activity Continue as directed nitroglycerin 0.4 mg sublingual tablet 0.4 mg sublingual UD PRN Chest Pain (if needed) STOP taking 24 hours before surgery tadalafil 20 mg tablet (Cialis) 20 mg PO DAILY PRN sexual activity nystatin 100,000 unit/gram topical cream 1 appln topical BID PRN Skin Irritation triamcinolone acetonide 0.1 % topical cream 1 applic topical BID DO NOT take the morning of surgery furosemide 40 mg tablet 40 mg PO QAM Take morning of surgery With a small sip of water, OTHERWISE NOTHING TO EAT OR DRINK AFTER MIDNIGHT: aspirin 81 mg tablet,delayed release (Aspir-) 81 mg PO QAM (continue as normal unless told otherwise by surgeon) ondansetron HCl 4 mg tablet (Zofran) 4 mg PO Q6 PRN nausea and vomiting (if needed) amlodipine 5 mg tablet 5 mg PO QAM metoprolol succinate 100 mg tablet,extended release 24 hr 150 mg PO QAM omeprazole 20 mg capsule,delayed release 20 mg PO QAM tramadol 50 mg tablet 50 mg PO BID prednisone 5 mg tablet 5 mg PO QAM Take evening before surgery ondansetron HCl 4 mg tablet (Zofran) 4 mg PO Q6 PRN nausea and vomiting (if needed) allopurinol 300 mg tablet 300 mg PO HS atorvastatin 40 mg tablet 40 mg PO HS tamsulosin 0.4 mg capsule (Flomax) 0.4 mg PO HS lisinopril 5 mg tablet 5 mg PO HS venlafaxine 225 mg tablet,extended release 24 hr 225 mg PO HS tramadol 50 mg tablet 50 mg PO BID lorazepam 0.5 mg tablet 0.5 mg PO HS PRN anxiety/insomnia (if needed) Other Notes If you have any questions please call us at [phone] or [phone] or [phone] or [phone]
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
[~2022-10-09 06:39] MED LIST changes: +ACETAMINOPHEN 500 MG TAB PO SCH; -ALL300 PO; -AMLO-110 PO; -ASPI81TA28 PO; -ATOR-22 PO; -CLB/200 PO; +FAMOTIDINE 20 MG TAB PO SCH; -FURO40TA3 PO; +GABAPENTIN 300 MG CAP PO SCH; -INDO-22 PO; -LISI-729 PO; +LR 60ML/HR IV SCH; -METF1TAB53 PO; -METO-479 PO; -NTRGSL/4 UT; +ORTHO JOINT MIX INFIL SCH; -PRLSR20 PO; -REGADENOSON 0.4 MG/5 ML SYR ONE; -TRAM-453 PO; +TRANEXAMIC ACID 1,000 MG **IV Intra-op IV SCH; +TRANEXAMIC ACID 1,000 MG **IV Pre-op IV SCH; -VENL150C56 PO; -ZOLP1TAB PO; +ceFAZolin 2000MG 2,000 MG/15 ML SYR IV SCH; +dexAMETHasone 4 MG TAB PO SCH
[2022-10-09] MEDS ORDERED: BUPIVACAINE 0.25% 30 ML VIAL ONE (07:15)
[2022-10-09] MEDS ORDERED: BUPIVACAINE 0.5 % 5 MG/1 ML PF 10ML VIAL ONE (07:15)
[2022-10-09] MEDS ORDERED: DEXAMETHASONE SOD INJ 4 MG/ML VIAL ONE (07:15)
[2022-10-09] MEDS ORDERED: EPINEPHrine INJ 1 MG/ML AMP ONE (07:16)
[2022-10-09] MEDS ORDERED: MIDAZOLAM HCL 1 MG/ML 2ML VIAL ONE ×2 (07:46→09:11)
[2022-10-09] MEDS ORDERED: KETAMINE 50 MG/5 ML SYRINGE ONE (07:46)
--- NOTE | 2022-10-09 08:07 | History & Physical Bridge Note ---
Date of Service October 09, 2022 History & Physical Bridge Note I have examined the patient, reviewed the History & Physical and in the interval since the performance of the History & Physical I have noted the following changes of clinical significance: no changes noted
[2022-10-09] MEDS ORDERED: ORTHO JOINT ANESTHETIC ONE (08:46)
[2022-10-09] MEDS ORDERED: ATROPINE SULFATE 0.1 MG/ML 10ML SYR IV PRN (09:21)
[2022-10-09] MEDS ORDERED: PROMETHAZINE HCL 6.25 MG in SODIUM CHLORIDE 0.9% 50 ML IV PRN (09:21)
[2022-10-09] MEDS ORDERED: ONDANSETRON INJ 2 MG/ML 2 ML VIAL IV PRN ×2 (09:21→13:14)
[2022-10-09] MEDS ORDERED: ePHEDrine sulfate 50 MG/ML AMP IV PRN (09:21)
[2022-10-09] MEDS ORDERED: fentaNYL citrate 100 MCG/2 ML VIAL IV PRN (09:21)
[2022-10-09] MEDS ORDERED: PROPOFOL IV EMULSION 10 MG/ML 20 ML VIAL IV ONE (10:08)
[2022-10-09] MEDS ORDERED: ONDANSETRON INJ 2 MG/ML 2 ML VIAL ONE (10:08)
[2022-10-09] MEDS ORDERED: GLYCOPYRROLATE 0.2 MG/ML VIAL ONE (10:08)
[2022-10-09] MEDS ORDERED: LIDOCAINE 2% MPF LOCAL 5 ML VIAL INFIL ONE (10:08)
--- NOTE | 2022-10-09 10:27 | Operative Report ---
PG Post Operative Report Pre & Post Diagnosis Operation Date: 10/09/22 09:20 Pre-Op Diagnosis: Osteoarthritis of left knee Post-Op Diagnosis: Osteoarthritis of left knee I identified the patient and participated in the time-out.: Yes Procedure Operation Date: 10/09/22 09:20 Actual Procedures p Left Total Knee Arthroplasty(Left) - Arpit Desai DO Surgeon Arpit Desai DO Manager Quality Systems Arpit Jacobsen PA-C Estimated Blood Loss 5 Findings Consistent with Post-Op Diagnosis Specimens Left femoral and tibial bone Description of Procedure Implants used: I used a Pedro Persona total knee arthroplasty system with a size 8 CR standard femur, G tibia with a 30 mm stem extension, 31 oval patella, and a size 12 medial congruent polyethylene bearing. All components were cemented in place with Biomet cement. Edgar arrived [facility] for the above procedure. He was seen in the preoperative holding area and the operative extremity was identified and signed. He was given a preoperative antibiotic, TXA, a spinal anesthetic and an adductor nerve block. He was taken back to the operating room and laid on the table in supine position. He was given basic sedation. The operative knee was then prepped and draped in sterile fashion. A timeout was done, and the patient and the operative extremity was properly identified. A midline incision was made directly over the patella. Dissection was taken down to the extensor mechanism. A subvastus arthrotomy was used. The medial retinaculum was released and the fat pad was mostly excised. The knee was flexed and the ACL, PCL, and meniscus were removed. A drill was sent down the center of the femoral canal followed by an intramedullary roman. Off that roman a distal femoral cutting block was placed. 9 mm was resected off the distal femur at 5 of valgus. A posterior referencing AP sizing guide was then placed on the distal femur. The femur measured to be a size 8. 2 drill holes were placed in 3 of external rotation. A 4-in-1 cutting block was then impacted into place. Anterior, posterior, and chamfer cuts were then made. The proximal tibia was then exposed. An external tibial alignment guide was placed. A tibial cut guide was then anchored in place and the proximal tibia was then resected. The posterior aspect of the knee was then opened up and any additional meniscus fragments and osteophytes were removed. The tibia measured to be a size G . The tibial plate was then placed in the appropriate rotation and the tibia was drilled and punched. Trial components were then placed. I used a size 12 medial congruent polyethylene insert. The knee was brought through a full range of motion and felt to be stable. The peg holes for the femoral component were then drilled. The patella was then everted and 9 mm was resected off the posterior aspect of the patella. The patella measured to be a size 31 oval. 3 peg holes were then drilled. A trial patella was placed. The knee was once again brought through a full range of motion and felt to be stable. Trial components were then removed. The surrounding soft tissues were injected with 100 cc of an orthopedic pain control cocktail. All components were then cemented into place with Biomet cement. The final polyethylene insert was then snapped into place. Once cement was dry the tourniquet was deflated. Hemostasis was obtained. A dilute betadyne lavage was then done for 3 minutes. The joint was then irrigated with normal saline solution. The subvastus ar throtomy was then closed with #1 Vicryl suture. The skin was closed with 2-0 Vicryl, 3-0V lock suture, and dale. A soft compressive dressing was placed. He was then transferred to a hospital bed and taken to the postanesthesia care unit in stable condition. He tolerated the procedure well. Arpit Jacobsen PA-C, was present for the entire procedure. He was critical for patient positioning, prepping, draping, retraction exposure, wound closure and application of sterile dressing. I attest to the content of the Intraoperative Record and any orders documented therein. Any exceptions are noted below.
--- NOTE | 2022-10-09 11:20 | XRay Report ---
LEFT KNEE 2 VIEWS History: Left total knee arthroplasty. Degenerative arthritis. Postop. FINDINGS: The patient is status post a left total knee arthroplasty. The hardware is intact. No fract ure or dislocation. Skin dale are in place. IMPRESSION: Left total knee arthroplasty. No evidence for hardware complication. ACT 112: Negative or not required by law. Electronically signed by: Juwan Mo M.D. 10/09/2022 11:19 AM
--- NOTE | 2022-10-09 12:27 | Anesthesiology Progress Note ---
Date of Service October 09, 2022 Anesthesia Post Procedure Vital Signs Vital Signs: Temp Pulse Resp BP Pulse Ox O2 Del Method O2 Flow Rate 10/09/22 12:10 77 21 132/72 93 Room Air 10/09/22 11:40 36.6 C 78 19 135/73 92 Room Air 10/09/22 11:20 78 20 125/63 100 Oxymask 4 10/09/22 11:10 80 19 130/66 100 Oxymask 10 10/09/22 11:30 78 21 140/66 93 Room Air 10/09/22 11:00 80 19 112/64 100 Oxymask 10 10/09/22 10:53 37.1 C 82 18 107/57 L 100 Oxymask 10 10/09/22 07:18 36.8 C 85 22 189/97 H 95 Room Air 10/09/22 07:18 Room Air Pain Intensity Left Knee: Pain Intensity: 4 Transfer of Care Handoff Completed per policy Notes Mental Status: alert / awake / arousable Patient Amnestic to Procedure: Yes Nausea / Vomiting: adequately controlled Pain: adequately controlled Airway Patency, RR, SpO2: stable & adequate BP & HR: stable & adequate Hydration State: stable & adequate Neuraxial Anesthesia: was administered and sensory block is resolving Anesthetic Complications: no major complications apparent and Pt Satisfied with anesthetic care
[2022-10-09] MEDS ORDERED: NALOXONE HCL 0.4 MG/1 ML VIAL/CARP IV PRN (13:14)
[2022-10-09] MEDS ORDERED: traMADol HCL 50 MG TABLET PO PRN (13:14)
[2022-10-09] MEDS ORDERED: LORazepam 0.5 MG TAB PO PRN (13:14)
[2022-10-09] MEDS ORDERED: MAGNESIUM HYDROXIDE SUSP 30 ML UDC PO PRN (13:14)
[2022-10-09] MEDS ORDERED: HYDROmorphone INJ 0.5 MG/0.5 ML SYR IV PRN (13:14)
[2022-10-09] MEDS ORDERED: bisacodyL 10 MG SUPP PR PRN (13:14)
[2022-10-09] MEDS ORDERED: NITROGLYCERIN SL 0.4 MG/TAB TAB SL PRN (13:14)
[2022-10-09] MEDS ORDERED: METOCLOPRAMIDE HCL INJ 5 MG/ML 2 ML VIAL IV PRN (13:14)
[2022-10-09] MEDS: SODIUM CHLORIDE 0.9% 1000ML 1,000 ML IV SCH (13:20)
[2022-10-09] MEDS ORDERED: ONDANSETRON 4 MG OD TAB PO PRN (13:39)
[2022-10-09] MEDS: KETOROLAC 30 MG/ML VIAL IV SCH ×2 (14:27→18:24)
[2022-10-09] MEDS: ceFAZolin 2000MG 2,000 MG/15 ML SYR IV SCH (17:36)
[2022-10-09] MEDS: TRIAMCINOLONE ACET 0.1% CR 15 GM TUBE TOP SCH (20:02)
[2022-10-09] MEDS: DOCUSATE SODIUM 100 MG CAP PO SCH (20:06)
[2022-10-09] MEDS: ASPIRIN 81 MG ECTAB PO SCH (20:30)
[2022-10-09] MEDS ORDERED: ATORVASTATIN 40 MG TAB PO SCH (21:00)
[2022-10-09] MEDS ORDERED: TAMSULOSIN HCL 0.4 MG CAP PO SCH (21:00)
[2022-10-09] MEDS ORDERED: lisinopril 5 MG TAB PO SCH (21:00)
[2022-10-09] MEDS ORDERED: allopurinoL 300 MG TAB PO SCH (21:00)
[2022-10-09] MEDS ORDERED: SENNA 8.6 MG TAB PO SCH (21:00)
[2022-10-09] MEDS ORDERED: VENLAFAXINE HCL XR 75 MG CAPXR PO SCH (21:00)
[2022-10-10] MEDS: SODIUM CHLORIDE 0.9% 1000ML 1,000 ML IV SCH (00:40)
[2022-10-10] MEDS: KETOROLAC 30 MG/ML VIAL IV SCH ×2 (01:52→08:10)
[2022-10-10] MEDS: ceFAZolin 2000MG 2,000 MG/15 ML SYR IV SCH (01:52)
[2022-10-10] MEDS: TRIAMCINOLONE ACET 0.1% CR 15 GM TUBE TOP SCH (08:11)
--- NOTE | 2022-10-10 08:12 | Orthopedic Progress Note ---
Date of Service October 10, 2022 Assessment & Plan (1) Status post left knee replacement: Overall he is doing very well. Is not having much pain in the left knee. He will be seen by physical therapy today for ambulation and range of motion exercises. He is on aspirin for DVT prophylaxis. He can be discharged home later today. He will follow-up orthopedics in 2 weeks. Helen Hernández was seen and examined at bedside this morning. Overall is doing very well. Is not having much pain in the left knee. He has been up and ambulating in the hallways. Has no complaints.. Review of Systems All systems reviewed & are unremarkable except as noted in HPI & below. Physical Exam On physical examination of the left knee, the dressing is clean and dry. His leg is out full extension. He is active dorsiflexion plantarflexion of his left ankle.. Results & Data Results & Data Laboratory Results . Diagnostic Findings Postoperative x-rays of the left knee show the prosthesis to be in anatomic alignment without any evidence of fracture, screws, or loosening. PG Care Time/CCT Total # of Minutes Spent Total Time Spent with Patient: Total time spent is greater than 50% in coordination of care (as documented) at patient's floor/unit and/or counseling patient: Coding Level of Care Code 59779 Post Operative Follow-Up Diagnoses Status post left knee replacement Z96.652
[2022-10-10] MEDS: DOCUSATE SODIUM 100 MG CAP PO SCH (08:15)
--- NOTE | 2022-10-10 08:19 | Discharge Summary ---
Date of Service October 10, 2022 Principal Diagnosis Same as "Discharge Diagnosis" noted below under Discharge Instructions. Discharge Exam On physical examination of the left knee, the dressing is clean and dry. His leg is out full extension. He is active dorsiflexion plantarflexion of his left ankle.. Discharge Data Procedures Performed Operation Date: 10/09/22 09:20 Actual Procedures p Left Total Knee Arthroplasty(Left) - Arpit Desai DO Ordered Studies 10/09/22 05:00 US - OR guided needle placemen Routine Hospital Course (1) Status post left knee replacement: On October 09, 2022 Edgar arrived at [facility] and underwent a left knee replaced without complication. He had a spinal anesthetic. Postoperatively he was started on aspirin for DVT prophylaxis and transferred to the general orthopedic floors. His hospital course was uneventful. On postop day #1, his vital signs were stable and his pain was well controlled. He was able to participate well with physical therapy doing ambulation and range of motion exercises. He was then discharged home. He will follow-up with orthopedics in 2 weeks. PG Care Time/CCT Total # of Minutes Spent Total Time Spent with Patient: Total time spent is greater than 50% in coordination of care (as documented) at patient's floor/unit and/or counseling patient: Discharge Plan Discharge Items Patient Disposition: Home - Home Health Services Reason For Visit: Degenerative Joint Disease Left Knee Discharge Diagnosis: left knee replacement Activity: Per Instructions section Non-emergency contact: Surgeon Call non-emergency contact if: your wound has increased redness and your wound has increased drainage Follow-up/Referrals: Pro,Yoandy Whitley MD [Primary Care Provider] - Diet: Regular Addtl Attending Provider Instructions: Activity and Therapy Recommendations: * If you are using [facility] then therapy will be provided at your home until they feel you have accomplished all of your goals. * If you are using [facility] then Physical Therapy will be provided until they feel you are ready to start Outpatient Physical Therapy. * If you are not using home therapy then Outpatient Physical Therapy should start about 3-5 days from your day of surgery. Therapy will last about 6-10 weeks * It is important not to put a pillow under your knee when you are relaxing or sleeping. It is just as important to make sure you are getting your knee perfectly straight as it is to regain your knee bend. * You were shown a series of exercises in the hospital. Do these exercises three times each day including the exercises you were shown in physical therapy. * Get up and walk several times each day. For the first four weeks, try not to stand or walk for more than one hour at a time. If you do stand or walk for more than one hour, you will not hurt anything, but your leg will likely swell. * As you feel comfortable, you may change from the walker or crutches to a cane and then to independent walking. Medications: * Narcotic You will likely be sent home from the hospital with a prescription for the narcotic pain medication that worked best throughout your stay. * Aspirin Most patients will be required to take Aspirin 81mg twice a day for 6 weeks after surgery. This is obtained [id number] and a prescription is not necessary. * Other medications may be prescribed for specific circumstances. If you have any questions, please call the office at . * Resume previous home medications unless otherwise instructed TEDs/Elastic Stockings: The white elastic stockings help limit swelling and prevent blood clots from for bruna in your legs.~ The more you wear them, the more they work. Wear them for six weeks. Dressing Care: The dressing can be changed after physical therapy on postop day #1. Daily dry dressing changes for a few days, especially if the incision is still draining some. If the incision is not draining then you may leave the dale open to air. If there is a little bit of drainage or if the dale are getting stuck on your clothing then cover the incision with a dry dressing. The dale will be removed at your 2 week follow-up appointment. Showering: You may shower 5 days from the day of surgery as long as the incision is no longer draining. You may shower with the dale exposed. Let soapy water run over the dale and pat them dry. Do not scrub or soak the incision. Things To Watch For: * Drainage from the incision site that occurs more than one week after your surgery. * Increased redness at the incision site. * Fever above 102 degrees Fahrenheit. * Unusual chest pain or shortness of breath. * Call [facility] at with any of the above problems Follow-Up Visit: Follow-up with Dr. Desai's PA (Arpit Jacobsen) 2-3 weeks after your day of surgery. He will remove your dale and answer any questions. If you have any additional questions or concerns, Dr Desai is usually in the office at the same time and will be available An appointment was probably scheduled when you signed-up for surgery in the office. If you have any questions call Office Instructions: More detailed instructions as well as Frequently Asked Questions were provided in a folder by our office when you signed-up for surgery. Please review these instructions when you get home. If you have any further questions or concerns, please feel free to call the office at [phone] Pending Studies at Discharge: No Stand-Alone Forms: My [facility] Medications and DC Order Prescriptions: New oxycodone 5 mg capsule 5 mg PO Q6H PRN (Reason: pain) Qty: 30 0RF aspirin 81 mg Tablet,Delayed Release (Dr/Ec) 81 mg PO BID 42 Days Qty: 84 0RF Continued nitroglycerin 0.4 mg tablet, sublingual 0.4 mg SL UD PRN (Reason: Chest Pain) Qty: 25 0RF Rx Instructions: NEEDED FOR CHEST PAIN : ONE TABLET UNDER THE TONGUE EVERY 5 MINUTES UP TO 3 DOSES. ondansetron HCl [Zofran] 4 mg tablet 4 mg PO Q6 PRN (Reason: nausea and vomiting) Qty: 20 0RF allopurinol 300 mg tablet 300 mg PO HS Qty: 90 3RF furosemide 40 mg tablet 40 mg PO QAM Qty: 90 3RF lisinopril 5 mg tablet 5 mg PO HS Qty: 90 3RF venlafaxine 225 mg tablet extended release 24hr 225 mg PO HS Qty: 90 3RF omeprazole 20 mg capsule,delayed release(DR/EC) 20 mg PO QAM Qty: 90 3RF tramadol 50 mg tablet 50 mg PO BID Qty: 60 0RF tamsulosin [Flomax] 0.4 mg capsule 0.4 mg PO HS Qty: 90 3RF atorvastatin 40 mg tablet 40 mg PO HS Qty: 90 3RF metoprolol succinate 100 mg tablet extended release 24 hr 150 mg PO QAM Qty: 135 3RF nystatin 100,000 unit/gram cream 1 appln TOP BID PRN (Reason: Skin Irritation) Label Comments: to foot and groin ; triamcinolone acetonide 0.1 % cream 1 applic TOP BID Qty: 80 1RF prednisone 5 mg tablet 5 mg PO QAM lorazepam 0.5 mg tablet 0.5 mg PO HS PRN (Reason: anxiety/insomnia) tadalafil [Cialis] 20 mg tablet 20 mg PO DAILY PRN (Reason: sexual activity) amlodipine [Norvasc] 5 mg tablet 5 mg PO QAM Discontinued aspirin [Aspir-81] 81 mg Tablet,Delayed Release (Dr/Ec) 81 mg PO QAM Discharge Orders: Discharge Order (Routine); Ordered 10/10/22 Ordered By: Arpit Jain/Other Patient Handouts: Managing Type 2 Diabetes Admission Data Admit Date/Time: 10/09/22 13:52 Attending Provider: Arpit Desai Admit Provider: Aript Desai Primary Care Provider: Yoandy Javed
[2022-10-10] MEDS: ASPIRIN 81 MG ECTAB PO SCH (08:48)
[2022-10-10] MEDS ORDERED: FUROSEMIDE 40 MG TAB PO SCH (09:00)
[2022-10-10] MEDS ORDERED: MULTIVITAMIN TAB PO SCH (09:00)
[2022-10-10] MEDS ORDERED: predniSONE 5 MG TAB PO SCH (09:00)
[2022-10-10] MEDS ORDERED: amLODIPine BESYLATE 5 MG TAB PO SCH (09:00)
[2022-10-10] MEDS ORDERED: METOPROLOL SUCC 50MG EXT REL TAB PO SCH (09:00)
[2022-10-10] MEDS ORDERED: PANTOprazole 40 MG TAB PO SCH (09:00)
== END 2022-10-10 12:11 | disposition home health service (06) ==
LOC: PACUINP 06:39 → ASU 06:39 → 3E 14:05
DX: Z79.899 Other long term (current) drug therapy; Z88.8 Allergy status to other drugs, medicaments and biological substances; M17.12 Unilateral primary osteoarthritis, left knee; Z95.1 Presence of aortocoronary bypass graft; I25.2 Old myocardial infarction; Z79.82 Long term (current) use of aspirin

== ENCOUNTER 2022-12-19 13:04 | Inpatient (IN) ==
--- NOTE | 2022-12-19 13:47 | XRay Report ---
XR chest 1V portable CLINICAL HISTORY: cough COMPARISON STUDY: Chest radiograph September 16, 2022. FINDINGS: Cardiomegaly is noted. There are median sternotomy wires. No pneumothorax is present. There are suspected small bilateral pleural effusions with hazy bibasilar opacities. Interstitial thickeni ng is present. IMPRESSION: 1. Cardiomegaly. Interstitial thickening suggestive of pulmonary edema. An infectious process is cons idered less likely. 2. Suspected small bilateral pleural effusions with hazy bibasilar opacities. Radiographic follow-up to ensure resolution is recommended. ACT 112: Negative or not required by law. Electronically signed by: Oleg Erickson M.D. 12/19/2022 1:46 PM
[2022-12-19] MEDS ORDERED: methylPREDNISolone 125 MG/2 ML VIAL IV STA (13:58)
[2022-12-19] MEDS ORDERED: ALBUT/IPRATROP 3MG/0.5MG NEB 3 ML VIAL NEB STA ×2 (13:58→15:32)
[2022-12-19 14:33] LABS: Base Excess VBG -8.7 mEq/L; HCO3 VBG 18 mmol/L; Oxygen Saturation VBG < 60.0 %; PCO2 VBG 43 mmHg (38-50); PO2 VBG 20 mmHg; pH VBG 7.24 (7.36-7.41)
[2022-12-19 14:36] LABS: Adenovirus PCR Not Detected (NotDetected); Bordetella parapertussis PCR Not Detected (NotDetected); Bordetella pertussis PCR Not Detected (NotDetected); Chlamydia pneumoniae PCR Not Detected (NotDetected); Coronavirus 229E PCR Not Detected (NotDetected); Coronavirus HKU1 PCR Not Detected (NotDetected); Coronavirus NL63 PCR Not Detected (NotDetected); Coronavirus OC43PCR Not Detected (NotDetected); Human Metapneumovirus PCR Not Detected (NotDetected); Influenza A PCR Not Detected (NotDetected); Influenza B PCR Not Detected (NotDetected); Mycoplasma pneumoniae PCR Not Detected (NotDetected); Parainfluenza Virus 1 PCR Not Detected (NotDetected); Parainfluenza Virus 2 PCR Not Detected (NotDetected); Parainfluenza Virus 3 PCR Not Detected (NotDetected); Parainfluenza Virus 4 PCR Not Detected (NotDetected); Respiratory Syncytial VirusPCR Not Detected (NotDetected); Rhinovirus/Enterovirus PCR Not Detected (NotDetected)
[2022-12-19 14:39] LABS: Coronavirus CoV-2 (COVID19)PCR DETECTED (NotDetected)
[2022-12-19 14:40] LABS: Basophils # (auto) 0.03 K/uL (0-0.2); Basophils % (auto) 0.4 %; Eosinophils # (auto) 0.08 K/uL (0-0.50); Hematocrit (blood only) 29.4 % (42.0-52.0); Hemoglobin 9.3 g/dl (14.0-18.0); Immature Granulocytes # (auto) 0.06 K/uL (0.01-0.20); Immature Granulocytes % (auto) 0.8 %; Lymphocytes # (auto) 0.68 K/uL (1.2-3.4); Lymphocytes % (auto) 8.6 %; Mean Corpuscular Hemoglobin 30.4 pg (25.0-34.0); Mean Corpuscular Hgb Conc 31.6 g/dL (32.0-36.0); Mean Corpuscular Volume 96.1 fL (80.0-100.0); Mean Platelet Volume 11.7 fL (9.4-12.4); Monocytes # (auto) 0.56 K/uL (0.11-0.59); Monocytes % (auto) 7.1 %; Neutrophils # (auto) 6.49 K/uL (1.40-6.50); Neutrophils % (auto) 82.1 %; Nucleated RBC # (auto) 0.02 K/uL (0-0.12); Nucleated RBC % (auto) 0.3 %; Platelet Count 156 K/uL (130-400); RDW Coefficient of Variation 17.3 % (11.5-14.5); Red Blood Count 3.06 M/uL (4.70-6.10)
[2022-12-19 14:55] LABS: Albumin Level 3.7 gm/dl (3.4-5.0); BUN Creatinine Ratio 14.5 (10-20); Bilirubin Direct 0.2 mg/dl (0-0.2); Bilirubin,Total 0.8 mg/dl (0.2-1.0); Creatinine Clr Calc Pharmacy 20.8 ml/min; Est GFR (African American) 15.7 ml/min; Est GFR (Non-African American) 13.5 ml/min; Magnesium 1.9 mg/dl (1.7-2.4); Potassium 5.4 mmol/L (3.5-5.1); Total Protein 6.5 gm/dl (6.0-8.3)
[2022-12-19 15:03] LABS: INR 1.2 (0.9-1.1); Partial Thromboplastin Ratio 1.1; Partial Thromboplastin Time 30.2 Seconds (21.0-31.0); Prothrombin Time 12.5 Seconds (9.0-12.0)
[2022-12-19 15:07] LABS: Troponin I High Sensitivity 206.5 pg/ml (0-20)
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
[2022-12-19] MEDS ORDERED: CALCIUM GLUCONATE 1,000 MG/60 ML BAG IV STA (15:32)
[2022-12-19] MEDS ORDERED: FUROSEMIDE 40 MG/4 ML VIAL IV ONE ×2 (15:32→19:58)
[2022-12-19] MEDS ORDERED: ASPIRIN CHEW 324 MG PO STA (15:32)
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
[2022-12-19 17:15] LABS: C Reactive Protein 0.96 mg/dl (0-0.5)
[2022-12-19] MEDS ORDERED: ACETAMINOPHEN 325 MG TAB PO PRN (18:39)
[2022-12-19] MEDS ORDERED: GLUCOSE 10 TAB/TUBE PO PRN (18:39)
[2022-12-19] MEDS ORDERED: DEXTROSE 50% 50 ML SYRINGE IV PRN (18:39)
[2022-12-19] MEDS ORDERED: GLUCOSE 40% GEL 15 GM TUBE PO PRN (18:39)
[2022-12-19] MEDS ORDERED: GLUCAGON FOR INJ 1 MG VIAL SQ PRN (18:39)
[2022-12-19] MEDS ORDERED: CARBOHYDRATES FOR HYPOGLYCEMIA PO PRN (18:39)
[2022-12-19 19:33] LABS: D Dimer 1540 ug/L FEU (0-500)
--- NOTE | 2022-12-19 20:27 | Electrocardiogram Report ---
Test Reason : Blood Pressure : / mmHG Vent. Rate : 114 BPM Atrial Rate : 114 BPM P-R Int : 166 ms QRS Dur : 120 ms QT Int : 348 ms P-R-T Axes : 032 010 163 degrees QTc Int : 479 ms Sinus tachycardia Septal infarct , age undetermined Abnormal ECG When compared with ECG of 16-SEP-2022 12:43, Vent. rate has increased BY 41 BPM Septal infarct is now Present Non-specific change in ST segment in Inferior leads Confirmed by Darío Miller ([id number]) on 12/19/2022 8:27:14 PM Referred By: NO PCP Confirmed By:Darío Miller
[2022-12-19] MEDS: LORazepam 0.5 MG TAB PO PRN (20:30)
[2022-12-19] MEDS: traMADol HCL 50 MG TABLET PO SCH (20:32)
[2022-12-19] MEDS: ATORVASTATIN 40 MG TAB PO SCH (20:33)
[2022-12-19] MEDS: allopurinoL 300 MG TAB PO SCH (20:33)
[2022-12-19] MEDS: TAMSULOSIN HCL 0.4 MG CAP PO SCH (20:33)
[2022-12-19] MEDS: HEPARIN SOD 5,000 UNIT/0.5 ML VIAL SQ SCH (21:20)
[2022-12-19] MEDS: VENLAFAXINE HCL XR 75 MG CAPXR PO SCH (21:21)
[2022-12-19] MEDS: INSULIN ASPART PER UNIT SC SCH (21:51)
[2022-12-19] MEDS: LANTUS PER UNIT CHARGE SQ SCH (21:51)
[2022-12-20 06:15] LABS: Hematocrit (blood only) 28.1 % (42.0-52.0); Immature Granulocytes # (auto) 0.04 K/uL (0.01-0.20); Immature Granulocytes % (auto) 0.9 %; Lymphocytes # (auto) 0.41 K/uL (1.2-3.4); Lymphocytes % (auto) 9.2 %; Mean Corpuscular Hemoglobin 30.4 pg (25.0-34.0); Mean Corpuscular Volume 94.9 fL (80.0-100.0); Mean Platelet Volume 11.8 fL (9.4-12.4); Monocytes # (auto) 0.13 K/uL (0.11-0.59); Monocytes % (auto) 2.9 %; Platelet Count 137 K/uL (130-400); RDW Standard Deviation 58.1 fL (36.4-46.3); Red Blood Count 2.96 M/uL (4.70-6.10); Reticulocyte % 3.3 % (0.5-2.0); White Blood Count 4.48 K/ul (4.8-10.8)
[2022-12-20] MEDS: HEPARIN SOD 5,000 UNIT/0.5 ML VIAL SQ SCH ×3 (06:33→20:36)
[2022-12-20 07:45] LABS: Albumin Level 3.7 gm/dl (3.4-5.0); Bilirubin,Total 0.7 mg/dl (0.2-1.0); Potassium 5.5 mmol/L (3.5-5.1)
[2022-12-20 08:06] LABS: Albumin Globulin Ratio 1.4 (0.9-2); BUN Creatinine Ratio 15.7 (10-20); Creatinine Clr Calc Pharmacy 19.6 ml/min; Est GFR (African American) 14.7 ml/min; Est GFR (Non-African American) 12.7 ml/min; Globulin 2.7 gm/dl (2.5-4.0); Total Protein 6.4 gm/dl (6.0-8.3)
[2022-12-20] MEDS: LANTUS PER UNIT CHARGE SQ SCH ×2 (08:40→20:52)
[2022-12-20] MEDS: INSULIN ASPART PER UNIT SC SCH ×4 (08:40→20:51)
[2022-12-20] MEDS: PANTOprazole 40 MG TAB PO SCH (08:45)
[2022-12-20] MEDS: buPROPion SR 100 MG TABCR PO SCH (08:46)
[2022-12-20] MEDS: METOPROLOL SUCC 50MG EXT REL TAB PO SCH (08:47)
[2022-12-20] MEDS: traMADol HCL 50 MG TABLET PO SCH ×2 (08:55→20:59)
[2022-12-20] MEDS ORDERED: amLODIPine BESYLATE 5 MG TAB PO SCH (09:00)
[2022-12-20] MEDS ORDERED: FUROSEMIDE 40 MG/4 ML VIAL IV SCH (09:00)
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
--- NOTE | 2022-12-20 10:43 | Electrocardiogram Report ---
Test Reason : Blood Pressure : / mmHG Vent. Rate : 112 BPM Atrial Rate : 112 BPM P-R Int : 160 ms QRS Dur : 114 ms QT Int : 344 ms P-R-T Axes : 000 014 167 degrees QTc Int : 469 ms Sinus tachycardia Septal infarct (cited on or before 19-DEC-2022) Possible Inferior infarct , age undetermined Abnormal ECG When compared with ECG of 19-DEC-2022 14:04, No significant change Confirmed by Darío Miller ([id number]) on 12/20/2022 10:42:51 AM Referred By: NO PCP Confirmed By:Darío Miller
[2022-12-20 11:11] LABS: Estimated Average Glucose 137 mg/dl; Hemoglobin A1C 6.4 % (4.5-5.6)
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
[2022-12-20] MEDS ORDERED: FUROSEMIDE 40 MG/4 ML VIAL IV ONE (11:32)
[2022-12-20] MEDS: SODIUM ZIRCONIUM CYCLOSILICATE 10 GM PACKET PO SCH (12:19)
[2022-12-20] MEDS: SODIUM BICARBONATE 650 MG TAB PO SCH ×2 (12:19→20:35)
--- NOTE | 2022-12-20 12:52 | Hospitalist Progress Note ---
Date of Service December 20, 2022 Assessment & Plan (1) Acute respiratory failure with hypoxia: Plan: Increased work of breathing on exam O2 > 94% Suspect mainly secondary to heart failure rather than COVID Chest x ray shows evidence of fluid overload Patient on room air and said his breathing has improved (2) Acute on chronic heart failure with preserved ejection fraction: Plan: Initially on Lasix 40 mg IV twice daily, however Nephrology changed to lasix 80mg daily ECHO pending Low-sodium diet, fluid restrict 1500 mL Strict I's and O's Daily weights (3) COVID-19: Plan: Day 19 of illness -although no positive home test to determine true start Unvaccinated and no previous COVID infections Solu-Medrol given in the emergency room. No more steroids Procalcitonin did not suggest bacterial infection as well (4) TANYA (acute kidney injury): Plan: Creatinine 4.34 from baseline 3.2 -suspect due to cardiorenal syndrome Nephrology on consult (5) Hyperkalemia: Plan: Given [facility] recheck potassium level (6) Hyperlipidemia: Plan: Continue atorvastatin 40 mg p.o. daily (7) Type II diabetes mellitus: Plan: HbA1c 7.1 in August. Repeat with a.m. labs. Consult pharmacy for glycemic control in the setting of steroid use (8) CAD (coronary artery disease): Plan: S/p CABG x2 vessels (BOSTON to LAD, SVG to OM3) in 2010 Continue aspirin, metoprolol, lisinopril, atorvastatin (9) CKD (chronic kidney disease) stage 4, GFR 15-29 ml/min: Plan VTE prophylaxis - heparin 5000 units every 8 hourly Diet -type 2 diabetes, heart healthy, low-sodium, fluid restriction as above Disposition -continue to monitor Admission and Anticipated Discharge Date Admission Date: December 19, 2022 Subjective patient seen and examined, now on room air, says shortness of breath has improved Review of Systems Review of Systems: All systems reviewed are negative, apart from the ones contained in the history. Physical Exam Physical Exam: The patient is awake, alert and oriented 3, well developed and well nourished, normocephalic and atraumatic, lying in bed and in no acute distress. HEENT--PERRL, EOMI, mucous membranes and oropharynx mildly dry Neck--supple. No JVD. No bruits. Thyroid normal, trachea midline, no adenopathy. Heart--normal S1 and S2. No murmurs, rubs or gallops. Lungs--clear bilaterally, no respiratory distress, no accessory muscle use. Abdomen--normal bowel sounds and soft. Mild epigastric and left sided abdominal pain Extremities--no cyanosis or clubbing. No edema. Dermatologic--normal skin turgor, normal color, no abnormal lymph nodes, no rash. Neurologic--cranial nerves II through XII grossly intact. Rheumatologic--normal range of motion. Psychiatric--normal affect. Results & Data Results & Data ([facility]) Vital Signs (Past 12 Hours) Vital Signs Temp Pulse Resp BP Pulse Ox O2 Del Method 12/20/22 11:37 97.9 F 113 H 18 94/62 L 92 Room Air 12/20/22 07:28 98.4 F 110 H 22 107/73 95 Room Air 12/20/22 03:00 97.7 F 110 H 20 118/66 93 Room Air PG Care Time/CCT Total # of Minutes Spent Total Time Spent with Patient: Total time spent is greater than 50% in coordination of care (as documented) at patient's floor/unit and/or counseling patient: Coding Level of Care Code 93572 SUB INP/OBS CARE 2/35MIN Diagnoses Acute respiratory failure with hypoxia J96.01 Acute on chronic heart failure with preserved ejection fraction I50.33 COVID-19 U07.1 TANYA (acute kidney injury) N17.9 Hyperkalemia E87.5 Hyperlipidemia E78.5 Type II diabetes mellitus E11.9 CAD (coronary artery disease) I25.10 CKD (chronic kidney disease) stage 4, GFR 15-29 ml/min N18.4 Time Spent (min) 35
--- NOTE | 2022-12-20 13:26 | XCELERA ---
[id number] \\[id number]
[2022-12-20] MEDS: FUROSEMIDE 40 MG/4 ML VIAL IV SCH (17:05)
[2022-12-20] MEDS: ATORVASTATIN 40 MG TAB PO SCH (20:34)
[2022-12-20] MEDS: allopurinoL 300 MG TAB PO SCH (20:35)
[2022-12-20] MEDS: TAMSULOSIN HCL 0.4 MG CAP PO SCH (20:35)
[2022-12-20] MEDS: VENLAFAXINE HCL XR 75 MG CAPXR PO SCH (20:35)
[2022-12-20] MEDS: LORazepam 0.5 MG TAB PO PRN (20:59)
[2022-12-21] MEDS: ONDANSETRON INJ 2 MG/ML 2 ML VIAL IV PRN (03:52)
[2022-12-21] MEDS: HEPARIN SOD 5,000 UNIT/0.5 ML VIAL SQ SCH ×3 (05:31→20:51)
[2022-12-21 06:39] LABS: Hematocrit (blood only) 27.1 % (42.0-52.0); Hemoglobin 8.5 g/dl (14.0-18.0); Mean Corpuscular Hemoglobin 29.7 pg (25.0-34.0); Mean Corpuscular Hgb Conc 31.4 g/dL (32.0-36.0); Mean Corpuscular Volume 94.8 fL (80.0-100.0); Mean Platelet Volume 12.2 fL (9.4-12.4); Nucleated RBC # (auto) 0.04 K/uL (0-0.12); Nucleated RBC % (auto) 0.5 %; Platelet Count 144 K/uL (130-400); RDW Standard Deviation 57.9 fL (36.4-46.3); Red Blood Count 2.86 M/uL (4.70-6.10)
[2022-12-21 06:45] LABS: BUN Creatinine Ratio 16.1 (10-20); Calcium 8.6 mg/dl (8.5-10.1); Creatinine Clr Calc Pharmacy 17.3 ml/min; Est GFR (African American) 12.5 ml/min; Est GFR (Non-African American) 10.8 ml/min; Potassium 5.6 mmol/L (3.5-5.1)
[2022-12-21] MEDS: buPROPion SR 100 MG TABCR PO SCH (09:59)
[2022-12-21] MEDS: FUROSEMIDE 40 MG/4 ML VIAL IV SCH ×2 (10:00→17:24)
[2022-12-21] MEDS: LANTUS PER UNIT CHARGE SQ SCH ×2 (10:00→21:07)
[2022-12-21] MEDS: METOPROLOL SUCC 50MG EXT REL TAB PO SCH (10:00)
[2022-12-21] MEDS: SODIUM BICARBONATE 650 MG TAB PO SCH ×2 (10:00→20:52)
[2022-12-21] MEDS: PANTOprazole 40 MG TAB PO SCH (10:01)
[2022-12-21] MEDS: traMADol HCL 50 MG TABLET PO SCH ×2 (10:09→20:52)
[2022-12-21] MEDS: INSULIN ASPART PER UNIT SC SCH ×4 (10:22→20:53)
--- NOTE | 2022-12-21 10:31 | Nephrology Progress Note ---
Date of Service December 21, 2022 Assessment & Plan (1) TANYA (acute kidney injury): Plan: Patient with acute kidney injury on CKD 4 from advanced vascular disease likely due to ischemic ATN in setting of COVID 19 infection and atrophied R kidney. Creatinine is up to 5.2 from a baseline of mid threes October 2022. Patient also has metabolic acidosis and hyperkalemia of 5.6. with worsened heart failure and volume overload -Monitor renal function with daily BMP -Avoid nephrotoxins such as contrast and NSAIDs. -continue sodium bicarbonate tablets 650 mg twice daily (2) Hyperkalemia: Plan: Potassium of 5.6 today in setting of worsening renal function. -On December 20, he started Lokelma 10 g daily which should continue Ordered renal diet today Continue Lasix - to start HD soon (3) Goals of care, counseling/discussion: Plan: I spent more than 10 minutes discussing the patient's current kidney status in the setting of his other acute health issues today with the patient and with his by phone who is also admitted with [facility]. I explained to them that he is likely to need dialysis in order to manage both volume and potassium issues in the next 24 to 48 hours. Patient has recently established with CKD pillowcase turner for ESRD orientation, though has not had the opportunity to complete this yet. Risks benefits and alternatives of starting dialysis reviewed with the patient After discussion with his and him, we will proceed with vascular consultation and dialysis catheter placement (4) Systolic heart failure: Admission and Anticipated Discharge Date Admission Date: December 19, 2022 Subjective Seen on rounds this morning. Tells me he had a terrible night due to shortness of breath. Denies nausea vomiting or muscle weakness Review of Systems Review of Systems: All systems reviewed & are unremarkable except as noted in Subjective Physical Exam Constitutional: well developed, + acute distress (Mild related to tachypnea) and + morbidly obese Eyes: EOM intact bilaterally ENMT: Ears: no external ear abnormality Nose: no external nose abnormality Mouth: + dry oral mucous membranes Neck: no nuchal rigidity Respiratory: + labored breathing, + tachypneic and + paradoxical thoraco- abdominal movement Auscultation: + diminished lung sounds, + crackles and + wheezes (Expiratory) Cardiovascular: Rate/Rhythm: regular rhythm and + tachycardic Extremities: no edema Gastrointestinal (Abdomen): Inspection/Auscultation: normal bowel sounds Pe rcussion/Palpation: abdomen soft; abdomen nontender Musculoskeletal: Extremities: strength 5/5 throughout Skin: no rashes, warm and dry Neurologic: nair, fluent speech, no tremor Results & Data ([facility]) Vital Signs (Past 12 Hours) Vital Signs Temp Pulse Pulse Resp BP Pulse Ox O2 Del Method 12/21/22 07:42 36.5 C 112 H 24 94/61 L 94 Oxymask 12/21/22 03:00 36.6 C 114 H 18 132/72 95 Oxymask 12/20/22 23:00 114 H 12/20/22 23:03 36.5 C 115 H 18 104/73 91 Nasal Cannula O2 Flow Rate 12/21/22 07:42 2.5 12/21/22 03:00 2 12/20/22 23:00 12/20/22 23:03 2 Laboratory Results 12/21/22 05:50 12/21/22 05:50 Diagnostic Findings Echocardiogram yesterday remarkable for newly reduced ejection fraction to 25% (compared to September 2022) with global hypokinesis, mild concentric LVH and mild pulmonary hypertension
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
[2022-12-21] MEDS ORDERED: ALBUT/IPRATROP 3MG/0.5MG NEB 3 ML VIAL ONE ×2 (12:48→22:34)
--- NOTE | 2022-12-21 12:52 | Electrocardiogram Report ---
Test Reason : Blood Pressure : / mmHG Vent. Rate : 115 BPM Atrial Rate : 115 BPM P-R Int : 188 ms QRS Dur : 120 ms QT Int : 376 ms P-R-T Axes : 000 045 175 degrees QTc Int : 520 ms Probable Sinus tachycardia Incomplete left bundle block Abnormal ECG When compared with ECG of 19-DEC-2022 15:19, Borderline criteria for Inferior infarct are no longer Present ST now depressed in Inferior leads Confirmed by Yoandy Santiago ([id number]) on 12/21/2022 12:52:14 PM Referred By: NO PCP Confirmed By:Yoandy Santiago
--- NOTE | 2022-12-21 15:05 | Hospitalist Progress Note ---
Date of Service December 21, 2022 Assessment & Plan (1) Acute respiratory failure with hypoxia: Plan: Admitted on account of worsening SOB On admission, O2 > 94% Suspect mainly secondary to heart failure rather than COVID Chest x ray shows evidence of fluid overload This morning, said breathing got worse with weezing Was started on supplemental oxygen and Duonebs Will get a repeat chest x ray (2) Acute on chronic heart failure with preserved ejection fraction: Plan: Initially on Lasix 40 mg IV twice daily, however Nephrology changed to lasix 80mg daily ECHO showed EF 20-25% with global hypokinesis Low-sodium diet, fluid restrict 1500 mL Strict I's and O's Daily weights Will benefit from HD (3) COVID-19: Plan: Not thought to be contributing to his syptoms (4) TANYA (acute kidney injury): Plan: Worsening TANYA Patient will need permacath for HD Nephrology on consult (5) Hyperkalemia: Plan: Given [facility] recheck potassium level (6) Hyperlipidemia: Plan: Continue atorvastatin 40 mg p.o. daily (7) Type II diabetes mellitus: Plan: HbA1c 7.1 in August. Blood glucose under better control (8) CAD (coronary artery disease): Plan: S/p CABG x2 vessels (BOSTON to LAD, SVG to OM3) in 2010 Continue aspirin, metoprolol, lisinopril, atorvastatin (9) CKD (chronic kidney disease) stage 4, GFR 15-29 ml/min: Plan VTE prophylaxis - heparin 5000 units every 8 hourly Diet -type 2 diabetes, heart healthy, low-sodium, fluid restriction as above Disposition -continue to monitor Admission and Anticipated Discharge Date Admission Date: December 19, 2022 Subjective patient seen and examined, sob worse this morning, with wheeze Review of Systems Review of Systems: All systems reviewed are negative, apart from the ones contained in the history. Physical Exam Physical Exam: The patient is awake, alert and oriented 3, well developed and well nourished, normocephalic and atraumatic, lying in bed and in no acute distress. HEENT--PERRL, EOMI, mucous membranes and oropharynx mildly dry Neck--supple. No JVD. No bruits. Thyroid normal, trachea midline, no adenopathy. Heart--normal S1 and S2. No murmurs, rubs or gallops. Lungs--reduced air entry on auscultation, bibasilar wheeze Abdomen--normal bowel sounds and soft. Mild epigastric and left sided abdominal pain Extremities--no cyanosis or clubbing. No edema. Dermatologic--normal skin turgor, normal color, no abnormal lymph nodes, no rash. Neurologic--cranial nerves II through XII grossly intact. Rheumatologic--normal range of motion. Psychiatric--normal affect. Results & Data Results & Data ([facility]) Vital Signs (Past 12 Hours) Vital Signs Temp Pulse Resp BP Pulse Ox O2 Del Method O2 Flow Rate 12/21/22 12:54 110 H 22 93 Oxymask 3 12/21/22 11:51 97.5 F L 118 H 24 91/57 L 99 Oxymask 2.5 12/21/22 08:00 Oxymask 2 12/21/22 07:42 97.7 F 112 H 24 94/61 L 94 Oxymask 2.5 PG Care Time/CCT Total # of Minutes Spent Total Time Spent with Patient: Total time spent is greater than 50% in coordination of care (as documented) at patient's floor/unit and/or counseling patient: Coding Level of Care Code 39425 SUB INP/OBS CARE 2/35MIN Diagnoses Acute respiratory failure with hypoxia J96.01 Acute on chronic heart failure with preserved ejection fraction I50.33 COVID-19 U07.1 TANYA (acute kidney injury) N17.9 Hyperkalemia E87.5 Hyperlipidemia E78.5 Type II diabetes mellitus E11.9 CAD (coronary artery disease) I25.10 CKD (chronic kidney disease) stage 4, GFR 15-29 ml/min N18.4 Time Spent (min) 35
[2022-12-21] MEDS: SODIUM ZIRCONIUM CYCLOSILICATE 10 GM PACKET PO SCH (15:24)
--- NOTE | 2022-12-21 15:54 | XRay Report ---
XR chest 1V portable HISTORY: Shortness of breath. Follow-up. COMPARISON: Chest 12/19/2022. FINDINGS: There are low lung volumes. No pneumothorax. Mild congestive change and trace bilateral ple ural effusions have improved. Bibasilar linear densities favor subsegmental atelectasis. There are po st sternotomy changes again noted. The heart remains enlarged. IMPRESSION: Interval improvement in the mild congestive change and trace bilateral pleural effusions. ACT 112: Negative or not required by law. Electronically signed by: Juwan Mo M.D. 12/21/2022 3:52 PM
[2022-12-21] MEDS: ALBUT/IPRATROP 3MG/0.5MG NEB 3 ML VIAL NEB SCH ×3 (16:13→22:51)
[2022-12-21 16:47] LABS: BUN Creatinine Ratio 15.3 (10-20); Calcium 8.2 mg/dl (8.5-10.1); Creatinine Clr Calc Pharmacy 16.2 ml/min; Est GFR (African American) 11.6 ml/min
[2022-12-21 16:59] LABS: Base Excess ABG -9.2 mEq/L (-9-1.8); HCO3 ABG 17 mmol/L (19-24); PCO2 ABG 37 mmHg (35-46); PO2 ABG 123 mmHg (80-95); pH ABG 7.27 (7.35-7.45)
[2022-12-21 17:03] LABS: Allen Test Pos (Pos)
[2022-12-21] MEDS: allopurinoL 300 MG TAB PO SCH (20:51)
[2022-12-21] MEDS: VENLAFAXINE HCL XR 75 MG CAPXR PO SCH (20:51)
[2022-12-21] MEDS: TAMSULOSIN HCL 0.4 MG CAP PO SCH (20:51)
[2022-12-21] MEDS: LORazepam 0.5 MG TAB PO PRN (20:52)
[2022-12-21] MEDS: ATORVASTATIN 40 MG TAB PO SCH (20:53)
[2022-12-22] MEDS: ALBUT/IPRATROP 3MG/0.5MG NEB 3 ML VIAL NEB SCH ×6 (02:37→19:17)
[2022-12-22] MEDS: HEPARIN SOD 5,000 UNIT/0.5 ML VIAL SQ SCH ×3 (06:27→20:32)
[2022-12-22] MEDS ORDERED: MIDAZOLAM HCL 1 MG/ML 2ML VIAL ONE (06:52)
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
--- NOTE | 2022-12-22 07:29 | History & Physical Bridge Note ---
Date of Service December 22, 2022 History & Physical Bridge Note Patient for insertion of permcath today. I have discussed the risks options and benefits of the procedure with the patient. The patient understands the risks options and benefits and agrees to the procedure. I have examined the patient, reviewed the History & Physical and in the interval since the performance of the History & Physical I have noted the following changes of clinical significance: no changes noted
[2022-12-22] MEDS ORDERED: LIDOCAINE 1% LOCAL 20 ML VIAL ONE (07:48)
[2022-12-22] MEDS ORDERED: HEPARIN SOD (PORCINE) 5,000 UNITS/ML VIAL ONE (07:49)
[2022-12-22] MEDS: ceFAZolin 3000MG/72.5 ML BAG IV ONE ×2 (08:05→10:28)
[2022-12-22] MEDS ORDERED: PROPOFOL IV EMULSION 10 MG/ML 20 ML VIAL IV ONE (08:23)
[2022-12-22] MEDS ORDERED: ONDANSETRON INJ 2 MG/ML 2 ML VIAL ONE (08:26)
[2022-12-22] MEDS: INSULIN ASPART PER UNIT SC SCH ×4 (08:29→20:32)
--- NOTE | 2022-12-22 08:46 | Operative Report ---
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 He is in need of dialysis. PermCath was recommended. I have discussed the risks options and benefits of the procedure with the patient. The patient understands the risks options and benefits and agrees to the procedure. Description of Procedure Patient was taken to the angio suite and placed in the supine position. The right side of the neck and chest wall were prepped and draped in a sterile manner. The patient was identified and a timeout performed. Local anesthesia was then administered to the appropriate areas of the neck and chest wall. Ultrasound was then used to locate the right internal jugular vein. The vein compressed easily, had no filing defects, and was patent. The vein was then punctured under direct ultrasound imaging. A guidewire was then passed centrally under fluoroscopic imaging. A stab wound was then made in the anterior chest wall and a 19 cm permcath was passed from the stab wound on the chest wall to the puncture site on the neck. The puncture site was then dilated till the 14Fr peel away sheath was inserted. The permcath was then inserted through the sheath to a central position in the distal superior vena cava. The peel away sheath was then removed. The catheter was then sutured in place using nylon sutures. The puncture was then closed using a 4-0 Vicryl subcuticular suture. Dermabond was used for a dressing on the puncture site. Both ports aspirated and flushed easily and were then packed with heparin. A sterile dressing was applied to the catheter. The patient left the operation room in satisfactory condition and tolerated the procedure well. All needle and sponge counts were correct at the end of the procedure. I attest to the content of the Intraoperative Record and any orders documented therein. Any exceptions are noted below.
[2022-12-22] MEDS ORDERED: SODIUM CHLORIDE 0.9% 1000ML 1,000 ML IV PRN (08:54)
--- NOTE | 2022-12-22 09:50 | XRay Report ---
XR chest 1V portable HISTORY: PACU bay 19, post perm cath placement COMPARISON: Chest 12/21/2022. FINDINGS: Interval placement of a right jugular central venous catheter which terminates at the expec eli location of the SVC. There are low lung volumes. No pneumothorax. Postoperative changes are noted . The heart remains enlarged. Mild pulmonary edema and trace bilateral pleural effusions have improve d. IMPRESSION: 1. Right jugular central venous catheter terminates at the SVC. No pneumothorax. 2. Interval improvement in the pulmonary edema and trace pleural effusions. ACT 112: Negative or not required by law. Electronically signed by: Juwan Mo M.D. 12/22/2022 9:49 AM
--- NOTE | 2022-12-22 09:55 | Cardiology Consultation ---
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 Insulin Glargine (Lantus Per Unit Charge) 10 units SQ BID ROXY Stop: 01/18/23 20:59 Last Admin: 12/22/22 10:30 Dose: Not Given Documented By: Admin: 12/21/22 21:07 Dose: 10 units Documented By: DUSTY Co-signed By: REINIER Admin: 12/21/22 10:00 Dose: 10 units Documented By: ROSEANNE Co-signed By: CARTER Admin: 12/20/22 20:52 Dose: 10 units Documented By: MARY Co-signed By: ERIC Admin: 12/20/22 08:40 Dose: 10 units Documented By: KASSIDY Co-signed By: CARTER Admin: 12/19/22 21:51 Dose: 10 units Documented By: DUSTY Co-signed By: ERIC Lorazepam (Lorazepam 0.5 Mg Tab) 0.5 mg PO HS PRN PRN Reason: anxiety/insomnia Stop: 01/18/23 18:38 Last Admin: 12/21/22 20:52 Dose: 0.5 mg Documented By: Admin: 12/20/22 20:59 Dose: 0.5 mg Documented By: Admin: 12/19/22 20:30 Dose: 0.5 mg Documented By: DUSTY Metoprolol Succinate (Metoprolol Succ 50mg Ext Rel Tab) [facility] [place] Stop: 01/19/23 08:59 Last Admin: 12/22/22 14:43 Dose: 150 mg Documented By: Admin: 12/21/22 10:00 Dose: Not Given Documented By: Admin: 12/20/22 08:47 Dose: 150 mg Documented By: KASSIDY Miscellaneous (Carbohydrates For Hypoglycemia ) 15 - 30 gm PO UD PRN PRN Reason: Hypoglycemia Protocol Stop: 01/18/23 18:38 Last Admin: 12/22/22 14:45 Dose: 30 gm Documented By: HARSHAL Ondansetron HCl (Ondansetron Inj 2 Mg/Ml 2 Ml Vial) 4 mg IV Q6H PRN PRN Reason: Nausea And Vomiting Stop: 01/20/23 03:38 Last Admin: 12/21/22 03:52 Dose: 4 mg Documented By: MARY Pantoprazole Sodium (Pantoprazole 40 Mg Tab) 40 mg PO [facility] Stop: 01/19/23 08:59 Last Admin: 12/22/22 14:45 Dose: 40 mg Documented By: Admin: 12/21/22 10:01 Dose: 40 mg Documented By: Admin: 12/20/22 08:45 Dose: 40 mg Documented By: KASSIDY Sodium Zirconium Cyclosilicate (Sodium Zirconium Cyclosilicate 10 Gm Packet) 10 gm PO DAILY@1130 [facility] Stop: 01/19/23 11:29 Last Admin: 12/22/22 14:40 Dose: 10 gm Documented By: Admin: 12/21/22 15:24 Dose: 10 gm Documented By: Admin: 12/20/22 12:19 Dose: 10 gm Documented By: KASSIDY Tamsulosin HCl (Tamsulosin Hcl 0.4 Mg Cap) 0.4 mg PO [facility] Stop: 01/18/23 20:59 Last Admin: 12/21/22 20:51 Dose: 0.4 mg Documented By: Admin: 12/20/22 20:35 Dose: 0.4 mg Documented By: Admin: 12/19/22 20:33 Dose: 0.4 mg Documented By: DUSTY Tramadol HCl (Tramadol Hcl 50 Mg Tablet) 50 mg PO BID [facility] Stop: 01/18/23 20:59 Last Admin: 12/22/22 14:47 Dose: Not Given Documented By: Admin: 12/21/22 20:52 Dose: 50 mg Documented By: Admin: 12/21/22 10:09 Dose: 50 mg Documented By: Admin: 12/20/22 20:59 Dose: 50 mg Documented By: Admin: 12/20/22 08:55 Dose: 50 mg Documented By: Admin: 12/19/22 20:32 Dose: 50 mg Documented By: DUSTY Venlafaxine HCl (Venlafaxine Hcl Xr 75 Mg Capxr) 150 mg PO HS ROXY Stop: 01/18/23 20:59 Last Admin: 12/21/22 20:51 Dose: 150 mg Documented By: Admin: 12/20/22 20:35 Dose: 150 mg Documented By: Admin: 12/19/22 21:21 Dose: 150 mg Documented By: DUSTY PG Care Time/CCT Total # of Minutes Spent Total Time Spent with Patient: Total time spent is greater than 50% in coordination of care (as documented) at patient's floor/unit and/or counseling patient:44 Coding [place] [address] INT INP/OBS CARE 3/75MIN Patient Type Established History Comprehensive Exam Comprehensive Medical Decision Making High Complexity Diagnoses Systolic heart failure I50.20 Atrial flutter with rapid ventricular response I48.92 Cardiomyopathy I42.9 Acute respiratory failure with hypoxia J96.01 CAD (coronary artery disease) I25.10 Hyperlipidemia E78.5 Time Spent (min) 78
[2022-12-22] MEDS: LANTUS PER UNIT CHARGE SQ SCH (10:30)
--- NOTE | 2022-12-22 11:21 | Nephrology Progress Note ---
Date of Service December 22, 2022 Assessment & Plan (1) ESRD (end stage renal disease): Plan: now ESRD after TANYA on CKD 4; now on dialysis which I expect to be chronic ESRD d/t advanced vascular disease likely due to ischemic ATN in setting of COVID 19 infection and atrophied R kidney. Creatinine is up to 5.6 yesterday from a baseline of mid threes October 2022. Patient also has metabolic acidosis and hyperkalemia with worsened heart failure, respiratory failure, and volume overload -Monitor renal function with daily BMP -Avoid nephrotoxins such as contrast and NSAIDs. -stopped sodium bicarbonate tablets -for now continue lokelma and lasix but look to wean as tolerated >plan 2.5 hrs HD today, 3-3.5 hrs tomorrow, 4 hrs on 12/24 then 3X weekly as needs dictate >manager of case management updated and will update [facility] home team as well (2) Goals of care, counseling/discussion: Plan: I spent more than 45 minutes discussing the patient's current kidney status in the setting of his other acute health issues today mostly with patient's by phone who [facility] Patient with baseline advanced CKD on verge of ESRD > and now he is ESRD starting dialysis. Risks/benefits/indications for and alternatives to dialysis explained to and consent on chart for HD. explains pt with lots of anxiety and some mild cognitive impairment/looks to her to manage their health issues. States he has been interested from outset in home dialysis b/c of anxiety. we talked about different local dialysis units > she favors [facility] which is a larger space d/t his anxiety. She agrees w/ starting admission process there. Also eager to explore home HD; PD not an option b/c it's very important for pt to sleep w/ his dogs. HHD appeals to as well b/c if she as his dialysis partner needed admission he could come in center for respite care. also HHD is gentler physiologically on the body and generally better tolerated than ICHD which may be important for pt like this w/ large burden of vascular disease. understands pt will still need AVF creation in future but would start HD as OP with dialysis catheter. She is agreeable to having me forward his name to [facility] admissions; I will alert lead clinical research coordinator/ lead RN at [facility] about need for home visit once is d/c. is aware/agreeable. (3) Hyperkalemia: Plan: Potassium of 5.0 yesterday PM in setting of worsening renal function. -On December 20, he started Lokelma 10 g daily which should continue Ordered renal diet today Continue Lasix - to start HD today and no labs today (4) Systolic heart failure: Plan: cardiology c/s pending Admission and Anticipated Discharge Date Admission Date: December 19, 2022 Subjective pt evaluated at bedside after cath placement >> no pain, feels breathignOK (on bipap after procedure); no n/v; + thirst. updated before and after procedure; she is his poa and gives consent for HD. 50 minutes into tx Review of Systems Review of Systems: All systems reviewed & are unremarkable except as noted in Subjective Physical Exam Constitutional: well developed and + morbidly obese; no acute distress (on bipap) Eyes: EOM intact bilaterally ENMT: Ears: no external ear abnormality Nose: no external nose abnormality Mouth: + dry oral mucous membranes Neck: no nuchal rigidity Respiratory: + tachypneic and + paradoxical thoraco-abdominal movement; no labored breathing Auscultation: + diminished lung sounds Cardiovascular: Rate/Rhythm: regular rhythm and + tachycardic Extremities: no edema Gastrointestinal (Abdomen): Inspection/Auscultation: normal bowel sounds Percussion/Palpation: abdomen soft; abdomen nontender Musculoskeletal: Extremities: strength 5/5 throughout Skin: no rashes, warm and dry Neurologic: nair, generalized weakness Psychiatric: oriented to self and place but not time Results & Data ([facility]) Vital Signs (Past 12 Hours) Vital Signs Temp Pulse Pulse Pulse Resp BP BP 12/22/22 09:42 123 H 20 12/22/22 09:35 36.2 C L 124 H 20 89/61 L 12/22/22 09:25 122 H 28 H 89/53 L 12/22/22 09:15 121 H 26 H 87/65 L 12/22/22 09:05 120 H 26 H 90/65 L 12/22/22 08:55 120 H 28 H 86/55 L 12/22/22 08:49 35.9 C L 118 H 26 H 92/63 L 12/22/22 07:44 36.5 C 94 H 22 106/66 12/22/22 07:12 115 H 20 12/22/22 03:55 36.5 C 121 H 18 116/78 12/22/22 02:38 120 H 20 Pulse Ox O2 Del Method O2 Flow Rate FiO2 12/22/22 09:42 100 35 12/22/22 09:35 98 BiPAP 35 12/22/22 09:25 100 Non-rebreather 8 12/22/22 09:15 100 Non-rebreather 8 12/22/22 09:05 100 Non-rebreather 8 12/22/22 08:55 100 Non-rebreather 8 12/22/22 08:49 100 Non-rebreather 8 12/22/22 07:44 95 Oxymask 2 12/22/22 07:12 95 Oxymask 3 12/22/22 03:55 99 Oxymask 2 12/22/22 02:38 97 Oxymask 2 Laboratory Results 12/21/22 05:50 12/21/22 15:43
--- NOTE | 2022-12-22 11:57 | Hospitalist Progress Note ---
Date of Service December 22, 2022 Assessment & Plan (1) Acute on chronic HFrEF (heart failure with reduced ejection fraction): Plan: Patient admitted on account of worsening SOB ECHO showed EF 20-25% with global hypokinesis, previous ECHO in 2021 had showed EF 50-55% Etiology of new onset cardiomyopathy is unclear cardiolgy is on consult, may need cardiac cath Low-sodium diet, fluid restrict 1500 mL Strict I's and O's Daily weights Continue Lasix and HD (2) Acute respiratory failure with hypoxia: Plan: Admitted on account of worsening SOB On admission, O2 > 94% Suspect mainly secondary to acute cardiomyopathy (EF dropped to 20-25% from 50- 55%) Initial Chest x ray showed evidence of fluid overload, however, repeat x ray today showed improvement in pulmonary edema Will continue supplemental oxygen and Duonebs, wean as tolerated Now on BIPAP (3) COVID-19: Plan: Not thought to be contributing to his syptoms (4) TANYA (acute kidney injury): Plan: Now on HD Appreciate Nephrology (5) Hyperkalemia: Plan: On HD receck (6) Hyperlipidemia: Plan: Continue atorvastatin 40 mg p.o. daily (7) Type II diabetes mellitus: Plan: HbA1c 7.1 in August. Blood glucose under better control, however, patient has been refusing food and gets hypoglycemic often Will hold his Lantus (8) CAD (coronary artery disease): Plan: S/p CABG x2 vessels (BOSTON to LAD, SVG to OM3) in 2010 Continue aspirin, metoprolol, lisinopril, atorvastatin (9) CKD (chronic kidney disease) stage 4, GFR 15-29 ml/min: Plan: Now on HD Plan VTE prophylaxis - heparin 5000 units every 8 hourly Diet -type 2 diabetes, heart healthy, low-sodium, fluid restriction as above Disposition -continue to monitor Admission and Anticipated Discharge Date Admission Date: December 19, 2022 Review of Systems Review of Systems: All systems reviewed are negative, apart from the ones contained in the history. Physical Exam Physical Exam: The patient is awake, alert and oriented 3, well developed and well nourished, normocephalic and atraumatic, lying in bed and in no acute distress. HEENT--PERRL, EOMI, mucous membranes and oropharynx mildly dry Neck--supple. No JVD. No bruits. Thyroid normal, trachea midline, no adenopathy. Heart--normal S1 and S2. No murmurs, rubs or gallops. Lungs--reduced air entry on auscultation, bibasilar wheeze Abdomen--normal bowel sounds and soft. Mild epigastric and left sided abdominal pain Extremities--no cyanosis or clubbing. No edema. Dermatologic--normal skin turgor, normal color, no abnormal lymph nodes, no rash. Neurologic--cranial nerves II through XII grossly intact. Rheumatologic--normal range of motion. Psychiatric--normal affect. Results & Data Results & Data ([facility]) Vital Signs (Past 12 Hours) Vital Signs Temp Pulse Pulse Pulse Resp BP BP 12/22/22 11:34 12/22/22 11:14 122 H 111/75 12/22/22 11:06 97.3 F L 121 H 12/22/22 11:22 119 H 22 12/22/22 11:21 119 H 18 12/22/22 09:42 123 H 20 12/22/22 09:35 97.2 F L 124 H 20 89/61 L 12/22/22 09:25 122 H 28 H 89/53 L 12/22/22 09:15 121 H 26 H 87/65 L 12/22/22 09:05 120 H 26 H 90/65 L 12/22/22 08:55 120 H 28 H 86/55 L 12/22/22 08:49 96.6 F L 118 H 26 H 92/63 L 12/22/22 07:44 97.7 F 94 H 22 12/22/22 07:12 115 H 20 12/22/22 03:55 97.7 F 121 H 18 116/78 12/22/22 02:38 120 H 20 BP Pulse Ox O2 Del Method O2 Flow Rate FiO2 12/22/22 11:34 BiPAP 12/22/22 11:14 12/22/22 11:06 12/22/22 11:22 97 35 12/22/22 11:21 97 BiPAP 35 12/22/22 09:42 100 35 12/22/22 09:35 98 BiPAP 35 12/22/22 09:25 100 Non-rebreather 8 12/22/22 09:15 100 Non-rebreather 8 12/22/22 09:05 100 Non-rebreather 8 12/22/22 08:55 100 Non-rebreather 8 12/22/22 08:49 100 Non-rebreather 8 12/22/22 07:44 106/66 95 Oxymask 2 12/22/22 07:12 95 Oxymask 3 12/22/22 03:55 99 Oxymask 2 12/22/22 02:38 97 Oxymask 2 PG Care Time/CCT Total # of Minutes Spent Total Time Spent with Patient: Total time spent is greater than 50% in coordination of care (as documented) at patient's floor/unit and/or counseling patient: Coding Level of Care Code 76217 SUB INP/OBS CARE 2/35MIN Diagnoses Acute on chronic HFrEF (heart failure with reduced ejection fraction) I50.23 Acute respiratory failure with hypoxia J96.01 COVID-19 U07.1 TANYA (acute kidney injury) N17.9 Hyperkalemia E87.5 Hyperlipidemia E78.5 Type II diabetes mellitus E11.9 CAD (coronary artery disease) I25.10 CKD (chronic kidney disease) stage 4, GFR 15-29 ml/min N18.4 Time Spent (min) 35
--- NOTE | 2022-12-22 14:01 | Anesthesiology Progress Note ---
Date of Service December 22, 2022 Anesthesia Post Procedure Vital Signs Vital Signs: Temp Pulse Pulse Pulse Resp BP BP 12/22/22 13:30 131 H 130/87 12/22/22 13:00 131 H 128/73 12/22/22 12:30 129 H 123/84 12/22/22 12:00 129 H 112/77 12/22/22 11:30 128 H 103/64 12/22/22 10:00 16 98/62 L 12/22/22 11:34 12/22/22 11:14 122 H 111/75 12/22/22 11:06 36.3 C L 121 H 12/22/22 11:22 119 H 22 12/22/22 11:21 119 H 18 12/22/22 09:42 123 H 20 12/22/22 09:35 36.2 C L 124 H 20 89/61 L 12/22/22 09:25 122 H 28 H 89/53 L 12/22/22 09:15 121 H 26 H 87/65 L 12/22/22 09:05 120 H 26 H 90/65 L 12/22/22 08:55 120 H 28 H 86/55 L 12/22/22 08:49 35.9 C L 118 H 26 H 92/63 L 12/22/22 07:44 36.5 C 94 H 22 12/22/22 07:12 115 H 20 12/22/22 03:55 36.5 C 121 H 18 116/78 12/22/22 02:38 120 H 20 12/21/22 23:02 36.5 C 122 H 20 113/71 12/21/22 23:02 122 H 12/21/22 22:51 121 H 20 12/21/22 20:00 12/21/22 19:14 118 H 22 12/21/22 18:51 36.8 C 118 H 19 132/83 12/21/22 16:49 36.7 C 118 H 22 102/69 12/21/22 16:13 117 H 20 BP Pulse Ox O2 Del Method O2 Flow Rate FiO2 12/22/22 13:30 12/22/22 13:00 12/22/22 12:30 12/22/22 12:00 12/22/22 11:30 12/22/22 10:00 94 BiPAP 12/22/22 11:34 BiPAP 12/22/22 11:14 12/22/22 11:06 12/22/22 11:22 97 35 12/22/22 11:21 97 BiPAP 35 12/22/22 09:42 100 35 12/22/22 09:35 98 BiPAP 35 12/22/22 09:25 100 Non-rebreather 8 12/22/22 09:15 100 Non-rebreather 8 12/22/22 09:05 100 Non-rebreather 8 12/22/22 08:55 100 Non-rebreather 8 12/22/22 08:49 100 Non-rebreather 8 12/22/22 07:44 106/66 95 Oxymask 2 12/22/22 07:12 95 Oxymask 3 12/22/22 03:55 99 Oxymask 2 12/22/22 02:38 97 Oxymask 2 12/21/22 23:02 97 Nasal Cannula 3 12/21/22 23:02 12/21/22 22:51 94 Oxymask 2 12/21/22 20:00 Oxymask 2 12/21/22 19:14 95 Oxymask 2 12/21/22 18:51 90 Room Air 12/21/22 16:49 94 Oxymask 2.5 12/21/22 16:13 95 Oxymask 3 Transfer of Care Handoff Completed per policy Notes Patient Amnestic to Procedure: Yes Nausea / Vomiting: adequately controlled Pain: adequately controlled Airway Patency, RR, SpO2: see Notes below BP & HR: stable & adequate Hydration State: stable & adequate Anesthetic Complications: no major complications apparent and Pt Satisfied with anesthetic care Notes: Patient more somnolent after surgery. Respiratory rate increased as did his work of breathing. He was arousable and answered questions. CXR performed to ensure no pneumo. Patient ordered BiPAP to assist his ventilation. Cardiology and nephrology both saw patient in recovery. Transfered back to PCU/tele on BiPAP.
[2022-12-22] MEDS: SODIUM BICARBONATE 650 MG TAB PO SCH (14:31)
[2022-12-22] MEDS: SODIUM ZIRCONIUM CYCLOSILICATE 10 GM PACKET PO SCH (14:40)
[2022-12-22] MEDS: buPROPion SR 100 MG TABCR PO SCH (14:42)
[2022-12-22] MEDS: FUROSEMIDE 40 MG/4 ML VIAL IV SCH ×3 (14:42→17:39)
[2022-12-22] MEDS: METOPROLOL SUCC 50MG EXT REL TAB PO SCH (14:43)
[2022-12-22] MEDS: PANTOprazole 40 MG TAB PO SCH (14:45)
[2022-12-22] MEDS: traMADol HCL 50 MG TABLET PO SCH ×2 (14:47→20:34)
[2022-12-22] MEDS: VENLAFAXINE HCL XR 75 MG CAPXR PO SCH (20:32)
[2022-12-22] MEDS: TAMSULOSIN HCL 0.4 MG CAP PO SCH (20:32)
[2022-12-22] MEDS: allopurinoL 300 MG TAB PO SCH (20:32)
[2022-12-22] MEDS: ATORVASTATIN 40 MG TAB PO SCH (20:33)
[2022-12-22] MEDS: METOPROLOL TARTRATE 1 MG/ML VIAL IV PRN (23:18)
[2022-12-23] MEDS: LORazepam 0.5 MG TAB PO PRN ×2 (00:30→21:02)
[2022-12-23] MEDS: HEPARIN SOD 5,000 UNIT/0.5 ML VIAL SQ SCH ×3 (06:34→21:03)
[2022-12-23] MEDS: buPROPion SR 100 MG TABCR PO SCH (07:23)
[2022-12-23] MEDS: METOPROLOL SUCC 50MG EXT REL TAB PO SCH ×2 (07:24→21:03)
[2022-12-23] MEDS: FUROSEMIDE 40 MG/4 ML VIAL IV SCH ×2 (07:25→17:36)
[2022-12-23] MEDS: traMADol HCL 50 MG TABLET PO SCH ×2 (07:26→21:02)
[2022-12-23] MEDS: PANTOprazole 40 MG TAB PO SCH (07:26)
[2022-12-23] MEDS: ALBUT/IPRATROP 3MG/0.5MG NEB 3 ML VIAL NEB SCH ×4 (07:40→19:53)
[2022-12-23 07:43] LABS: Hematocrit (blood only) 25.9 % (42.0-52.0); Hemoglobin 8.3 g/dl (14.0-18.0); Mean Corpuscular Hemoglobin 30.5 pg (25.0-34.0); Mean Corpuscular Volume 95.2 fL (80.0-100.0); Mean Platelet Volume 12.5 fL (9.4-12.4); Platelet Count 104 K/uL (130-400); RDW Coefficient of Variation 17.3 % (11.5-14.5); RDW Standard Deviation 59.7 fL (36.4-46.3); Red Blood Count 2.72 M/uL (4.70-6.10); White Blood Count 5.42 K/ul (4.8-10.8)
[2022-12-23] MEDS ORDERED: SODIUM CHLORIDE 0.9% 1000ML 1,000 ML IV PRN (07:43)
[2022-12-23] MEDS ORDERED: HEPARIN SOD (PORCINE) 1000 UNIT/ML IV SCH (08:00)
[2022-12-23 08:05] LABS: BUN Creatinine Ratio 12.1 (10-20); Calcium 8.3 mg/dl (8.5-10.1); Creatinine Clr Calc Pharmacy 20.4 ml/min; Est GFR (African American) 15.5 ml/min; Est GFR (Non-African American) 13.4 ml/min; Potassium 4.4 mmol/L (3.5-5.1)
[2022-12-23] MEDS: guaiFENesin/DEXTROM SYRUP 200MG/20MG 10ML UDC PO PRN (08:30)
--- NOTE | 2022-12-23 09:20 | Cardiology Progress Note ---
Date of Service December 23, 2022 Assessment & Plan (1) Systolic heart failure: (2) Atrial flutter with rapid ventricular response: (3) Cardiomyopathy: (4) Acute respiratory failure with hypoxia: (5) CAD (coronary artery disease): (6) Hyperlipidemia: Plan Mr. Holman is a 62-year-old male with a history of CAD s/p CABG x 2 Vessels April 2011, Hypertension, Dyslipidemia, Carotid Artery Stenoses, Type 2 Diabetes Mellitus, PAD, GERD, CKD with TANYA s/p Tunneled Dialysis Catheter 12/22/22 (starting dialysis), Obesity, Former Smoker, Gout, GERD, Nephrolithiasis, and Generalized Osteoarthritiswho [facility] with Acute Systolic CHF, Acute Hypoxic Respiratory Failure, newly diagnosed A-Flutter with RVR, and a newly diagnosed Cardiomyopathy (Tachycardia Induced vs secondary to Acute Illness). Patient remains in rapid atrial flutter with heart rates in the 110's to 120's overnight and this morning. Patient started dialysis yesterday and seems to be tolerating it so far. Patient continues to experience exertional dyspnea, and he still cannot lie down flat to sleep. He slept last night with the head of his bed elevated to approximately 15. Patient otherwise denies any shortness of breath at rest. Patient specifically denies any angina pectoris or burning chest pain, nor has he had any symptoms suggestive of stroke or mini stroke. As I mentioned in my note yesterday, the patient was scheduled to see me twice in the past month or 2 for evaluation of palpitations -- however, he "no showed" for both appointments. He was likely in Atrial Flutter that was causing his tachy-palpitations. We discussed the ongoing management of his Cardiomyopathy. I suspect that his Cardiomyopathy is tachycardia induced due Rapid Atrial Flutter -- so controlling his heart rate is of utmost importance. His [id number] is 3 -- so long-term anticoagulation is indicated. Annual stroke risk is 3.2% based on this score. Recommend the followin. He will need to be anticoagulated to reduce his risk of thromboembolic phenomena associated with atrial arrhythmias. Current hemoglobin is down to 8.3 g/dL, so the cause of his anemia needs to be discovered. 2. Continue IV Lopressor 5 mg q 4 hours for HR > 110 bpm. 3. Before discharge, stop Lisinopril x 36 hours and begin Entresto 24-26 mg every 12 hours. 4. Manage volume with IV Lasix and dialysis. 5. Increase Metoprolol Succinate ER to 200 mg every morning and 100 mg each evening in an effort to get his rate controlled. 6. Continue Atorvastatin 40 mg daily. 7. Strict 2 g low-sodium diet, fluid restriction. 8. Monitor daily body weights and I&O's. 9. If we cannot control the patient's heart rate -- we may need to consider a MCKAYLA/Cardioversion vs MCKAYLA/A-Flutter Ablation. Unfortunately the patient has not been anticoagulated leading up to this hospitalization. Patient verbalized understanding of our discussions today. He agrees with this plan. All of his questions were answered to his satisfaction. We will continue to follow while hospitalized and following discharge. Admission and Anticipated Discharge Date Admission Date: December 19, 2022 Subjective Mr. Holman is being seen in room 234. Patient remains in rapid atrial flutter with heart rates in the 110's to 120's overnight and this morning. Patient started dialysis yesterday and seems to be tolerating it so far. Patient continues to experience exertional dyspnea, and he still cannot lie down flat to sleep. He slept last night with the head of his bed elevated to approximately 15. Patient otherwise denies any shortness of breath at rest. He further denies any exertional chest pain, heaviness, tightness so pressure, discomfort, or burning. He has not had any angina pectoris. He denies any exertional neck, jaw, back, or arm pain. He continues to experience palpitations secondary to his rapid atrial flutter. He has not had any syncope or near syncope. Patient denies any symptoms suggestive of stroke or mini stroke. His hemoglobin has dropped from 8.5 g/dL yesterday down to 8.3 g/dL -- he still has some oozing from his tunneled dialysis catheter -- but that is not enough to explain his drop in hemoglobin. One would think that his hemoglobin should be increasing as he is being diuresed and heme concentrated. I doubt that his acute kidney injury and progression to end-stage renal disease is enough to explain his hemoglobin dropping from 9.3 g/dL on admission down to 8.3 g/dL today. Patient denies any melena or hematochezia. He has not had any other sites of obvious bleeding. Review of Systems Review of Systems: 10 point ROS completed and is negative with the exception of what is mentioned in the HPI. Physical Exam Physical Exam: General: Patient is being seen in the PACU, BiPAP with O2 in place. HEENT: Head is atraumatic, normocephalic. EOMs intact. Sclera anicteric. Neck: No JVD. JVP is elevated. Carotid upstrokes are +2 bilaterally without obvious bruits. Chest and Lungs: Mildly diminished breath sounds throughout. CVS: S1 and S2 are regular, tachycardic at 120 bpm with a grade 1/6 basal systolic murmur heard best at the right 2nd intercostal space. No obvious diastolic murmurs. No gallops or rubs. PMI is nonpalpable. No lifts, heaves, or thrills. No abdominal aortic or renal bruits. Median sternotomy scar is present. Abdominal Exam: Bowel sounds present. No masses, organomegaly, or tenderness. Extremities: No peripheral edema. + 2 radial artery pulsations bilaterally. Neurologic Exam: Patient is interact. Answers questions appropriately. Speech is clear. [employer]: -- A-Flutter at rates in the 110's to 120's over night and this morning. Echocardiogram 12/20/22: -- Top normal LV size with severely reduced LV systolic function. -- LVEF 25% to 30% with global hypokinesis. -- Mild concentric LVH. -- Normal RV size with moderately reduced RV systolic function. -- Mild left atrial dilation. -- Mild mitral regurgitation. -- Mild pulmonary hypertension with an estimated RVSP of 41 mmHg. -- Compared to prior study 10/02/2022; LV systolic function has declined. Results & Data ([facility]) Vital Signs (Past 12 Hours) Vital Signs Temp Pulse Pulse Resp BP Pulse Ox O2 Del Method 12/23/22 07:41 122 H 20 94 Nasal Cannula 12/23/22 07:22 37.1 C 123 H 16 117/72 91 Nasal Cannula 12/23/22 04:13 36.5 C 123 H 18 104/70 98 CPAP 12/22/22 23:55 37 C 123 H 18 103/66 95 Nasal Cannula 12/22/22 23:18 120 H O2 Flow Rate 12/23/22 07:41 2 12/23/22 07:22 2 12/23/22 04:13 12/22/22 23:55 2 12/22/22 23:18 PG Care Time/CCT Total # of Minutes Spent Total Time Spent with Patient: Total time spent is greater than 50% in coordination of care (as documented) at patient's floor/unit and/or counseling patient:24 Coding [place] [address] SUB INP/OBS CARE 3/50MIN Patient Type Established History Detailed Exam Detailed Medical Decision Making High Complexity Diagnoses Systolic heart failure I50.20 Atrial flutter with rapid ventricular response I48.92 Cardiomyopathy I42.9 Acute respiratory failure with hypoxia J96.01 CAD (coronary artery disease) I25.10 Hyperlipidemia E78.5 Time Spent (min) 52
[2022-12-23] MEDS: INSULIN ASPART PER UNIT SC SCH ×4 (10:02→21:02)
[2022-12-23 11:52] LABS: HBSAG NON-REACTIVE (NON-REACTIVE); Hepatitis B Core Antibody IgM NON-REACTIVE (NON-REACTIVE)
[2022-12-23] MEDS: METOPROLOL TARTRATE 1 MG/ML VIAL IV PRN (12:29)
[2022-12-23] MEDS: POLYETHYLENE (MIRALAX) 17 GM PACK PO SCH (12:30)
--- NOTE | 2022-12-23 12:48 | Hospitalist Progress Note ---
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 Patient was a no show twice for cardiology visit in the past Per cardiology, his heart rate needs to be optimized (3) Acute respiratory failure with hypoxia: Plan: Admitted on account of worsening SOB On admission, O2 > 94% Suspect mainly secondary to acute cardiomyopathy (EF dropped to 20-25% from 50- 55%) Initial Chest x ray showed evidence of fluid overload, however, repeat x ray today showed improvement in pulmonary edema Will continue supplemental oxygen and Duonebs, wean as tolerated Now on BIPAP (4) Atrial flutter with rapid ventricular response: Plan: Will need renally dosed Eliquis, however will investigate his low Hb to r/o GI bleed (5) Anemia: Plan: Probably a combination of acute blood loss from permacath palcement and CKD will obtain Iron studies Transfuse if Hb<7 (6) COVID-19: Plan: Not thought to be contributing to his syptoms (7) ATNYA (acute kidney injury): Plan: Now on HD Appreciate Nephrology (8) Hyperkalemia: Plan: On HD receck (9) Hyperlipidemia: Plan: Continue atorvastatin 40 mg p.o. daily (10) Type II diabetes mellitus: Plan: HbA1c 7.1 in August. Blood glucose under better control, however, patient has been refusing food and gets hypoglycemic often Will hold his Lantus (11) CAD (coronary artery disease): Plan: S/p CABG x2 vessels (BOSTON to LAD, SVG to OM3) in 2010 Continue aspirin, metoprolol, lisinopril, atorvastatin (12) CKD (chronic kidney disease) stage 4, GFR 15-29 ml/min: Plan: Now on HD Plan VTE prophylaxis - heparin 5000 units every 8 hourly Diet -type 2 diabetes, heart healthy, low-sodium, fluid restriction as above Disposition -continue to monitor Admission and Anticipated Discharge Date Admission Date: December 19, 2022 Subjective patient seen and examined, says his sob is better, still coughing a bit Review of Systems Review of Systems: All systems reviewed are negative, apart from the ones contained in the history. Physical Exam Physical Exam: The patient is awake, alert and oriented 3, well developed and well nourished, normocephalic and atraumatic, lying in bed and in no acute distress. HEENT--PERRL, EOMI, mucous membranes and oropharynx mildly dry Neck--supple. No JVD. No bruits. Thyroid normal, trachea midline, no adenopathy. Heart--normal S1 and S2. No murmurs, rubs or gallops. Lungs--reduced air entry on auscultation, bibasilar wheeze Abdomen--normal bowel sounds and soft. Mild epigastric and left sided abdominal pain Extremities--no cyanosis or clubbing. No edema. Dermatologic--normal skin turgor, normal color, no abnormal lymph nodes, no rash. Neurologic--cranial nerves II through XII grossly intact. Rheumatologic--normal range of motion. Psychiatric--normal affect. Results & Data Results & Data ([facility]) Vital Signs (Past 12 Hours) Vital Signs Temp Pulse Pulse Pulse Pulse Resp BP 12/23/22 12:00 98.2 F 116 H 12/23/22 11:30 94 H 103/42 L 12/23/22 12:29 132 H 107/37 L 12/23/22 11:53 124 H 20 12/23/22 11:33 12/23/22 11:00 126 H 107/37 L 12/23/22 10:30 119 H 108/50 L 12/23/22 10:00 125 H 124/65 12/23/22 09:30 125 H 112/66 12/23/22 09:00 114 H 127/93 12/23/22 08:46 98.2 F 70 12/23/22 07:41 122 H 20 12/23/22 07:22 98.8 F 123 H 16 12/23/22 04:13 97.7 F 123 H 18 BP Pulse Ox O2 Del Method O2 Flow Rate 12/23/22 12:00 122/66 12/23/22 11:30 12/23/22 12:29 12/23/22 11:53 88 L Room Air 12/23/22 11:33 Nasal Cannula 2 12/23/22 11:00 12/23/22 10:30 12/23/22 10:00 12/23/22 09:30 12/23/22 09:00 12/23/22 08:46 12/23/22 07:41 94 Nasal Cannula 2 12/23/22 07:22 117/72 91 Nasal Cannula 2 12/23/22 04:13 104/70 98 CPAP PG Care Time/CCT Total # of Minutes Spent Total Time Spent with Patient: Total time spent is greater than 50% in coordination of care (as documented) at patient's floor/unit and/or counseling patient: Coding Level of Care Code 73070 SUB INP/OBS CARE 2/35MIN Diagnoses Acute on chronic HFrEF (heart failure with reduced ejection fraction) I50.23 Cardiomyopathy I42.9 Acute respiratory failure with hypoxia J96.01 Atrial flutter with rapid ventricular response I48.92 Anemia D64.9 COVID-19 U07.1 TANYA (acute kidney injury) N17.9 Hyperkalemia E87.5 Hyperlipidemia E78.5 Type II diabetes mellitus E11.9 CAD (coronary artery disease) I25.10 CKD (chronic kidney disease) stage 4, GFR 15-29 ml/min N18.4 Time Spent (min) 35
[2022-12-23] MEDS ORDERED: DIGOXIN 125 MCG in SYRINGE 9.5 ML IV STA (16:41)
--- NOTE | 2022-12-23 20:50 | Nephrology Progress Note ---
Date of Service December 23, 2022 Assessment & Plan (1) ESRD (end stage renal disease): Plan: now ESRD after TANYA on CKD 4; now on dialysis which I expect to be chronic ESRD d/t advanced vascular disease now w/ ischemic ATN in setting of COVID 19 infection and atrophied R kidney. Creatinine peaked at 5.6 from a baseline of mid threes October 2022. Patient also has metabolic acidosis and hyperkalemia with worsened heart failure, respiratory failure, and volume overload > first HD 12/22 after TDC placement same day -Monitor renal function with daily BMP -Avoid nephrotoxins such as contrast and NSAIDs. -for now continue lasix but look to wean as tolerated -stopped lokelma >plan HD 4 hrs on 12/24 then 3X weekly as needs dictate >plan jail is HHD [facility] and near term in center HD at [facility] (2) Goals of care, counseling/discussion: Plan: reviewed goals of care w/ pt who confirms (3) Hyperkalemia: Plan: normalized; off of lokelma now cont renal diet today Continue Lasix - cont HD (4) Systolic heart failure: Plan: cardiology following >> rate control a challenge; HR in 120s-130s consistently Admission and Anticipated Discharge Date Admission Date: December 19, 2022 Subjective seen on pm rounds. no interval events except had second HD tx w/ 1L UF; pt tells me he feels better; sats drop to 80s off of 02. no n/v. no palpitations dyspnea or chest pain Review of Systems Review of Systems: All systems reviewed & are unremarkable except as noted in Subjective Physical Exam Constitutional: well developed and + morbidly obese; no acute distress ( sitting up in chair on 02nc) Eyes: EOM intact bilaterally ENMT: Ears: no external ear abnormality Nose: no external nose abnormality Mouth: + dry oral mucous membranes Neck: no nuchal rigidity Respiratory: + tachypneic and + paradoxical thoraco-abdominal movement; no labored breathing Auscultation: + diminished lung sounds Cardiovascular: Rate/Rhythm: regular rhythm and + tachycardic (130s) Extremities: no edema Gastrointestinal (Abdomen): Inspection/Auscultation: normal bowel sounds Percussion/Palpation: abdomen soft; abdomen nontender Musculoskeletal: Extremities: strength 5/5 throughout Skin: no rashes, warm and dry Neurologic: nair, fluent speech, no tremor Psychiatric: Orientation: oriented x 3 Affect: + anxious affect and + flat affect Results & Data ([facility]) Vital Signs (Past 12 Hours) Vital Signs Temp Pulse Pulse Pulse Pulse Resp BP 12/23/22 19:19 36.7 C 132 H 20 12/23/22 17:36 135 H 12/23/22 15:42 119 H 22 12/23/22 15:19 130 H 12/23/22 14:46 36.9 C 130 H 18 12/23/22 12:00 36.8 C 116 H 12/23/22 11:30 94 H 103/42 L 12/23/22 12:29 132 H 107/37 L 12/23/22 11:53 124 H 20 12/23/22 11:33 12/23/22 11:00 126 H 107/37 L 12/23/22 10:30 119 H 108/50 L 12/23/22 10:00 125 H 124/65 12/23/22 09:30 125 H 112/66 12/23/22 09:00 114 H 127/93 12/23/22 08:46 36.8 C 70 BP Pulse Ox O2 Del Method O2 Flow Rate 12/23/22 19:19 124/84 92 Nasal Cannula 2 12/23/22 17:36 12/23/22 15:42 93 Nasal Cannula 2 12/23/22 15:19 12/23/22 14:46 125/75 92 Nasal Cannula 2 12/23/22 12:00 122/66 12/23/22 11:30 12/23/22 12:29 12/23/22 11:53 88 L Room Air 12/23/22 11:33 Nasal Cannula 2 12/23/22 11:00 12/23/22 10:30 12/23/22 10:00 12/23/22 09:30 12/23/22 09:00 12/23/22 08:46 Laboratory Results 12/23/22 07:00 12/23/22 07:00
[2022-12-23] MEDS: ATORVASTATIN 40 MG TAB PO SCH (21:01)
[2022-12-23] MEDS: TAMSULOSIN HCL 0.4 MG CAP PO SCH (21:02)
[2022-12-23] MEDS: VENLAFAXINE HCL XR 75 MG CAPXR PO SCH (21:02)
[2022-12-23] MEDS: allopurinoL 300 MG TAB PO SCH (21:02)
[2022-12-24] MEDS: HEPARIN SOD 5,000 UNIT/0.5 ML VIAL SQ SCH ×3 (06:26→20:48)
[2022-12-24] MEDS: ALBUT/IPRATROP 3MG/0.5MG NEB 3 ML VIAL NEB SCH ×3 (06:53→15:35)
[2022-12-24] MEDS ORDERED: SODIUM CHLORIDE 0.9% 1000ML 1,000 ML IV PRN (07:32)
[2022-12-24] MEDS ORDERED: HEPARIN SOD (PORCINE) 1000 UNIT/ML IV ONE (07:32)
[2022-12-24] MEDS: FUROSEMIDE 40 MG/4 ML VIAL IV SCH ×3 (08:13→17:18)
[2022-12-24] MEDS: buPROPion SR 100 MG TABCR PO SCH (08:13)
[2022-12-24] MEDS: PANTOprazole 40 MG TAB PO SCH (08:14)
[2022-12-24] MEDS: METOPROLOL SUCC 50MG EXT REL TAB PO SCH ×3 (08:14→20:49)
[2022-12-24] MEDS: POLYETHYLENE (MIRALAX) 17 GM PACK PO SCH (08:22)
[2022-12-24] MEDS: INSULIN ASPART PER UNIT SC SCH ×4 (08:26→20:38)
[2022-12-24 09:25] LABS: Hematocrit (blood only) 26.5 % (42.0-52.0); Hemoglobin 8.3 g/dl (14.0-18.0); Mean Corpuscular Hemoglobin 30.2 pg (25.0-34.0); Mean Corpuscular Hgb Conc 31.3 g/dL (32.0-36.0); Mean Corpuscular Volume 96.4 fL (80.0-100.0); Mean Platelet Volume 12.8 fL (9.4-12.4); Platelet Count 95 K/uL (130-400); RDW Coefficient of Variation 17.3 % (11.5-14.5); RDW Standard Deviation 60.1 fL (36.4-46.3); Red Blood Count 2.75 M/uL (4.70-6.10); White Blood Count 4.61 K/ul (4.8-10.8)
[2022-12-24 09:45] LABS: BUN Creatinine Ratio 8.6 (10-20); Calcium 8.3 mg/dl (8.5-10.1); Est GFR (African American) 19.6 ml/min; Est GFR (Non-African American) 16.9 ml/min; Potassium 3.7 mmol/L (3.5-5.1)
[2022-12-24] MEDS ORDERED: IRON SUCROSE 100 MG in SYRINGE 0 ML IV ONE (10:30)
[2022-12-24] MEDS: traMADol HCL 50 MG TABLET PO SCH ×2 (13:20→20:49)
--- NOTE | 2022-12-24 14:29 | Hospitalist Progress Note ---
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 Patient was a no show twice for cardiology visit in the past Per cardiology, his heart rate needs to be optimized (3) Acute respiratory failure with hypoxia: Plan: Admitted on account of worsening SOB On admission, O2 > 94% Suspect mainly secondary to acute cardiomyopathy (EF dropped to 20-25% from 50- 55%) Initial Chest x ray showed evidence of fluid overload, however, repeat x ray today showed improvement in pulmonary edema Will continue supplemental oxygen and Duonebs, wean as tolerated Clinically much improved, was on room air today (4) Atrial flutter with rapid ventricular response: Plan: Will need renally dosed Eliquis, However, defer for now due to small amounts of bleeding from his permacath site (5) Anemia: Plan: Probably a combination of acute blood loss from permacath palcement and CKD and also Iron def Will start Iron tabs 325mg BID Transfuse if Hb<7 (6) COVID-19: Plan: Not thought to be contributing to his syptoms (7) TANAY (acute kidney injury): Plan: Now on HD Appreciate Nephrology (8) Hyperkalemia: Plan: On HD receck (9) Hyperlipidemia: Plan: Continue atorvastatin 40 mg p.o. daily (10) Type II diabetes mellitus: Plan: HbA1c 7.1 in August. Blood glucose under better control, however, patient has been refusing food and gets hypoglycemic often Will hold his Lantus (11) CAD (coronary artery disease): Plan: S/p CABG x2 vessels (BOSTON to LAD, SVG to OM3) in 2010 Continue aspirin, metoprolol, lisinopril, atorvastatin (12) CKD (chronic kidney disease) stage 4, GFR 15-29 ml/min: Plan: Now on HD Plan VTE prophylaxis - heparin 5000 units every 8 hourly Diet -type 2 diabetes, heart healthy, low-sodium, fluid restriction as above Hopefully d/c when his HR is under better control, a dialysis chair has been established for him Admission and Anticipated Discharge Date Admission Date: December 19, 2022 Subjective patient seen and examined, having HD, said his SOB is significantly improved Review of Systems Review of Systems: All systems reviewed are negative, apart from the ones contained in the history. Physical Exam Physical Exam: The patient is awake, alert and oriented 3, well developed and well nourished, normocephalic and atraumatic, lying in bed and in no acute distress. HEENT--PERRL, EOMI, mucous membranes and oropharynx mildly dry Neck--supple. No JVD. No bruits. Thyroid normal, trachea midline, no adenopathy. Heart--normal S1 and S2. No murmurs, rubs or gallops. Lungs--reduced air entry on auscultation, bibasilar wheeze Abdomen--normal bowel sounds and soft. Mild epigastric and left sided abdominal pain Extremities--no cyanosis or clubbing. No edema. Dermatologic--normal skin turgor, normal color, no abnormal lymph nodes, no rash. Neurologic--cranial nerves II through XII grossly intact. Rheumatologic--normal range of motion. Psychiatric--normal affect. Results & Data Results & Data ([facility]) Vital Signs (Past 12 Hours) Vital Signs Temp Pulse Pulse Pulse Pulse Pulse Resp 12/24/22 12:59 97.3 F L 134 H 12/24/22 12:30 69 12/24/22 12:00 135 H 12/24/22 11:30 119 H 12/24/22 08:00 12/24/22 11:00 90 12/24/22 10:30 132 H 12/24/22 10:00 92 H 12/24/22 09:30 132 H 12/24/22 09:19 108 H 12/24/22 08:56 113 H 12/24/22 08:50 97.9 F 127 H 12/24/22 07:34 98.1 F 120 H 21 12/24/22 06:53 117 H 20 12/24/22 04:53 97.9 F 128 H 20 BP BP Pulse Ox O2 Del Method O2 Flow Rate 12/24/22 12:59 126/85 12/24/22 12:30 101/58 L 12/24/22 12:00 140/90 12/24/22 11:30 148/103 H 12/24/22 08:00 Nasal Cannula 2 12/24/22 11:00 106/91 12/24/22 10:30 137/84 12/24/22 10:00 113/74 12/24/22 09:30 114/65 12/24/22 09:19 123/87 12/24/22 08:56 124/85 12/24/22 08:50 12/24/22 07:34 102/68 92 Nasal Cannula 12/24/22 06:53 93 Nasal Cannula 2 12/24/22 04:53 115/79 Nasal Cannula 2 PG Care Time/CCT Total # of Minutes Spent Total Time Spent with Patient: Total time spent is greater than 50% in coordination of care (as documented) at patient's floor/unit and/or counseling patient: Coding Level of Care Code 60149 SUB INP/OBS CARE 2/35MIN Diagnoses Acute on chronic HFrEF (heart failure with reduced ejection fraction) I50.23 Cardiomyopathy I42.9 Acute respiratory failure with hypoxia J96.01 Atrial flutter with rapid ventricular response I48.92 Anemia D64.9 COVID-19 U07.1 TANYA (acute kidney injury) N17.9 Hyperkalemia E87.5 Hyperlipidemia E78.5 Type II diabetes mellitus E11.9 CAD (coronary artery disease) I25.10 CKD (chronic kidney disease) stage 4, GFR 15-29 ml/min N18.4 Time Spent (min) 35
[2022-12-24] MEDS: FERROUS SULFATE 325 MG TAB PO SCH (17:18)
--- NOTE | 2022-12-24 17:55 | Dialysis Progress Note ---
Date of Service December 24, 2022 Assessment & Plan (1) ESRD (end stage renal disease): Plan: now ESRD after TANYA on CKD 4; now on dialysis which I expect to be chronic ESRD d/t advanced vascular disease now w/ ischemic ATN in setting of COVID 19 infection and atrophied R kidney. Creatinine peaked at 5.6 from a baseline of mid threes October 2022. Patient also had metabolic acidosis and hyperkalemia with worsened heart failure, respiratory failure, and volume overload > first HD 12/22 after TDC placement same day -Monitor renal function with daily BMP -Avoid nephrotoxins such as contrast and NSAIDs. -for now continue lasix but look to wean as tolerated -stopped lokelma >plan HD 4 hrs on 12/26 then 3X weekly as needs dictate >plan correction is HHD at [facility] and near term in-center HD at [facility] (2) Goals of care, counseling/discussion: Plan: reviewed goals of care w/ pt and who confirm plan individually (3) Hyperkalemia: Plan: normalized; off of lokelma now cont renal diet today stopped lasix - cont HD (4) Systolic heart failure: Plan: cardiology following >> rate control a challenge; HR in 120s-130s consistently adn cardiology focussed on rate control >will stop lasix to allow for more meds to control HR and for start of entresto Admission and Anticipated Discharge Date Admission Date: December 19, 2022 Subjective no acute interval events. seen on HD and tolerating tx well > no swings in bp or cramping or N. updated by phone. Review of Systems Review of Systems: All systems reviewed & are unremarkable except as noted in Subjective Physical Exam Constitutional: well developed and + morbidly obese; no acute distress (sitting in bed on 02nc) Eyes: EOM intact bilaterally ENMT: Ears: no external ear abnormality Nose: no external nose abnormality Mouth: + dry oral mucous membranes Neck: no nuchal rigidity Respiratory: + tachypneic and + paradoxical thoraco-abdominal movement; no labored breathing Auscultation: + diminished lung sounds Cardiovascular: Rate/Rhythm: regular rhythm and + tachycardic (120s-130s) Extremities: no edema Gastrointestinal (Abdomen): Inspection/Auscultation: normal bowel sounds Percussion/Palpation: abdomen soft; abdomen nontender Musculoskeletal: Extremities: strength 5/5 throughout Skin: no rashes, warm and dry Psychiatric: Orientation: oriented x 3 Affect: + anxious affect Results & Data ([facility]) Vital Signs (Past 12 Hours) Vital Signs Temp Pulse Pulse Pulse Pulse Pulse Resp 12/24/22 17:00 115 H 12/24/22 16:22 36.8 C 124 H 22 12/24/22 12:59 36.3 C L 134 H 12/24/22 12:30 69 12/24/22 12:00 135 H 12/24/22 11:30 119 H 12/24/22 08:00 12/24/22 11:00 90 12/24/22 10:30 132 H 12/24/22 10:00 92 H 12/24/22 09:30 132 H 12/24/22 09:19 108 H 12/24/22 08:56 113 H 12/24/22 08:50 36.6 C 127 H 12/24/22 07:34 36.7 C 120 H 21 12/24/22 06:53 117 H 20 BP BP Pulse Ox O2 Del Method O2 Flow Rate 12/24/22 17:00 12/24/22 16:22 120/78 90 Nasal Cannula 12/24/22 12:59 126/85 12/24/22 12:30 101/58 L 12/24/22 12:00 140/90 12/24/22 11:30 148/103 H 12/24/22 08:00 Nasal Cannula 2 12/24/22 11:00 106/91 12/24/22 10:30 137/84 12/24/22 10:00 113/74 12/24/22 09:30 114/65 12/24/22 09:19 123/87 12/24/22 08:56 124/85 12/24/22 08:50 12/24/22 07:34 102/68 92 Nasal Cannula 12/24/22 06:53 93 Nasal Cannula 2 Laboratory Results 12/24/22 08:39 12/24/22 08:39
[2022-12-24] MEDS: ATORVASTATIN 40 MG TAB PO SCH (20:48)
[2022-12-24] MEDS: VENLAFAXINE HCL XR 75 MG CAPXR PO SCH (20:48)
[2022-12-24] MEDS: TAMSULOSIN HCL 0.4 MG CAP PO SCH (20:48)
[2022-12-24] MEDS: allopurinoL 300 MG TAB PO SCH (20:49)
[2022-12-24] MEDS: LORazepam 0.5 MG TAB PO PRN (20:51)
[2022-12-24] MEDS: guaiFENesin/DEXTROM SYRUP 200MG/20MG 10ML UDC PO PRN (20:51)
[2022-12-24] MEDS: METOPROLOL TARTRATE 1 MG/ML VIAL IV PRN (22:18)
[2022-12-25] MEDS: METOPROLOL TARTRATE 1 MG/ML VIAL IV PRN ×2 (02:03→06:06)
[2022-12-25] MEDS: HEPARIN SOD 5,000 UNIT/0.5 ML VIAL SQ SCH (06:06)
[2022-12-25] MEDS: METOPROLOL SUCC 50MG EXT REL TAB PO SCH ×2 (08:21→20:53)
[2022-12-25] MEDS: PANTOprazole 40 MG TAB PO SCH (08:22)
[2022-12-25] MEDS: POLYETHYLENE (MIRALAX) 17 GM PACK PO SCH (08:22)
[2022-12-25] MEDS: FERROUS SULFATE 325 MG TAB PO SCH ×2 (08:22→18:34)
[2022-12-25] MEDS: buPROPion SR 100 MG TABCR PO SCH (08:26)
[2022-12-25] MEDS: traMADol HCL 50 MG TABLET PO SCH ×2 (09:20→20:53)
[2022-12-25] MEDS: INSULIN ASPART PER UNIT SC SCH ×4 (09:21→19:29)
[2022-12-25] MEDS ORDERED: STAT IV Infusion **Titration per Protocol STA (10:24)
[2022-12-25] MEDS: dilTIAZem HCL 125 MG in DEXTROSE 5% 100 ML IV SCH ×2 (12:20→21:00)
--- NOTE | 2022-12-25 13:09 | Cardiology Progress Note ---
Date of Service December 25, 2022 Assessment & Plan (1) Systolic heart failure: (2) Atrial flutter with rapid ventricular response: (3) Cardiomyopathy: (4) Acute respiratory failure with hypoxia: (5) CAD (coronary artery disease): (6) Hyperlipidemia: Plan Mr. Holman is a 62-year-old male with a history of CAD s/p CABG x 2 Vessels April 2011, Hypertension, Dyslipidemia, Carotid Artery Stenoses, Type 2 Diabetes Mellitus, PAD, GERD, CKD with TANYA s/p Tunneled Dialysis Catheter 12/22/22 (starting dialysis), Obesity, Former Smoker, Gout, GERD, Nephrolithiasis, and Generalized Osteoarthritiswho presented to [facility] 12[facility]2022 with Acute Systolic CHF, Acute Hypoxic Respiratory Failure, newly diagnosed A-Flutter with RVR, and a newly diagnosed Cardiomyopathy ( most likely Tachycardia Induced). Patient remains in rapid atrial flutter with heart rates in the 120's today. Hi s breathing has improved and he has been moving around more. He appears to be euvolemic Patient has not had any angina pectoris or burning chest pain, nor has he had any symptoms suggestive of stroke or mini stroke. We discussed the ongoing management of his Cardiomyopathy. I suspect that his Cardiomyopathy is tachycardia induced due Rapid Atrial Flutter -- so controlling his heart rate is of utmost importance. His [id number] is 3 -- so long-term anticoagulation is indicated. Annual stroke risk is 3.2% based on this score. Recommend the followin. Hgb is stable at 8.3 g/dL and it is felt that his anemia is related to his renal disease +/- oozing from tunneled dialysis catheter. Therefore begin Eliquis, stop SQ Heparin. 2. Continue IV Lopressor 5 mg q 4 hours for HR > 110 bpm. 3. Before discharge, stop Lisinopril x 36 hours and begin Entresto 24-26 mg every 12 hours. 4. Manage volume with IV Lasix and dialysis. 5. Continue Metoprolol Succinate ER 200 mg every morning and 100 mg each evening. 6. Continue Atorvastatin 40 mg daily. 7. Strict 2 g low-sodium diet, fluid restriction. 8. Monitor daily body weights and I&O's. 9. Begin Diltiazem Drip and titrate to effect -- this is for the short term to better control rate. 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 Plan is to proceed with MCKAYLA/Cardioversion early next week and ultimately an A-Flutter Ablation. Patient verbalized understanding of our discussions today. He agrees with this plan. We will continue to follow while hospitalized and following discharge. Admission and Anticipated Discharge Date Admission Date: December 19, 2022 Subjective Mr. Holman is a 62-year-old male with a history of CAD s/p CABG x 2 Vessels April 2011, Hypertension, Dyslipidemia, Carotid Artery Stenoses, Type 2 Diabetes Mellitus, PAD, GERD, CKD with TANYA s/p Tunneled Dialysis Catheter 12/22/22 (starting dialysis), Obesity, Former Smoker, Gout, GERD, Nephrolithiasis, and Generalized Osteoarthritiswho presented to [facility] on 12/19/2022 with Acute Systolic CHF, Acute Hypoxic Respiratory Failure, newly diagnosed A-Flutter with RVR, and a newly diagnosed Cardiomyopathy ( most likely Tachycardia Induced) who was admitted with Acute Systolic CHF, A-Flutter with RVR, Acute Hypoxic Respiratory Failure, and tested positive for COVID 19. Patient remains in rapid atrial flutter with heart rates in the 120's today. His breathing has improved and he has been moving around more. He appears to be euvolemic and compensated from a heart failure standpoint. Patient has not had any angina pectoris or burning chest pain, nor has he had any symptoms suggestive of stroke or mini stroke. He is tolerating hemodialysis so far. Echocardiogram 12/20/22: -- Top normal LV size with severely reduced LV systolic function. -- LVEF 25% to 30% with global hypokinesis. -- Mild concentric LVH. -- Normal RV size with moderately reduced RV systolic function. -- Mild left atrial dilation. -- Mild mitral regurgitation. -- Mild pulmonary hypertension with an estimated RVSP of 41 mmHg. -- Compared to prior study 10/02/2022; LV systolic function has declined. Review of Systems Review of Systems: 10 point ROS completed and is negative with the exception of what is mentioned in the HPI. Physical Exam Physical Exam: General: Patient is being seen in the PACU, BiPAP with O2 in place. HEENT: Head is atraumatic, normocephalic. EOMs intact. Sclera anicteric. Neck: No JVD. JVP is elevated. Carotid upstrokes are +2 bilaterally without obvious bruits. Chest and Lungs: Mildly diminished breath sounds throughout. CVS: S1 and S2 are regular, tachycardic at 120 bpm with a grade 1/6 basal systolic murmur heard best at the right 2nd intercostal space. No obvious diastolic murmurs. No gallops or rubs. PMI is nonpalpable. No lifts, heaves, or thrills. No abdominal aortic or renal bruits. Median sternotomy scar is present. Abdominal Exam: Bowel sounds present. No masses, organomegaly, or tenderness. Extremities: No peripheral edema. + 2 radial artery pulsations bilaterally. Neurologic Exam: Patient is interact. Answers questions appropriately. Speech is clear. 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 Results & Data ([facility]) Vital Signs (Past 12 Hours) Vital Signs Temp Pulse Pulse Pulse Resp BP BP 12/25/22 12:38 12/25/22 11:45 36.9 C 123 H 20 133/82 12/25/22 08:00 12/25/22 07:48 36.6 C 128 H 19 120/61 12/25/22 06:06 128 H 136/80 12/25/22 03:40 36.5 C 128 H 20 138/84 12/25/22 02:56 127 H 12/25/22 02:03 129 H 127/85 Pulse Ox Pulse Ox O2 Del Method O2 Flow Rate FiO2 12/25/22 12:38 94 12/25/22 11:45 96 Nasal Cannula 2 12/25/22 08:00 Room Air 12/25/22 07:48 91 Nasal Cannula 2 12/25/22 06:06 12/25/22 03:40 95 Nasal Cannula 2 12/25/22 02:56 12/25/22 02:03 PG Care Time/CCT Total # of Minutes Spent Total Time Spent with Patient: Total time spent is greater than 50% in coordination of care (as documented) at patient's floor/unit and/or counseling patient:22 Coding [place] [address] SUB INP/OBS CARE 3/50MIN Patient Type Established History Detailed Exam Detailed Medical Decision Making High Complexity Diagnoses Systolic heart failure I50.20 Atrial flutter with rapid ventricular response I48.92 Cardiomyopathy I42.9 Acute respiratory failure with hypoxia J96.01 CAD (coronary artery disease) I25.10 Hyperlipidemia E78.5 Time Spent (min) 40
--- NOTE | 2022-12-25 17:31 | Hospitalist Progress Note ---
Date of Service December 25, 2022 Assessment & Plan (1) Acute on chronic HFrEF (heart failure with reduced ejection fraction): Plan: Patient admitted on account of worsening SOB ECHO showed EF 20-25% with global hypokinesis, previous ECHO in 2021 had showed EF 50-55% Etiology of new onset cardiomyopathy is probably tachycardia induced given a flutter w rvr Low-sodium diet, fluid restrict 1500 mL Strict I's and O's Daily weights Continue Lasix and HD Metoprolol 200mg Am, 100 mg PM daily pt with a history of CAD s/p CABG x 2 Vessels April 2011, Hypertension, Dyslipidemia, Carotid Artery Stenoses, Type 2 Diabetes Mellitus, PAD, GERD, CKD with TANYA s/p Tunneled Dialysis Catheter 12/22/22 (starting dialysis), Obesity, Former Smoker, Gout, GERD, Nephrolithiasis, and Generalized Osteoarthritiswho presented to ED with Acute Systolic CHF, Acute Hypoxic Respiratory Failure, newly diagnosed A-Flutter with RVR, and a newly diagnosed Cardiomyopathy ( most likely Tachycardia Induced) who was admitted with Acute Systolic CHF, A-Flutter with RVR, Acute Hypoxic Respiratory Failure, and tested positive for COVID 19. Echocardiogram 12/20/22: -- Top normal LV size with severely reduced LV systolic function. -- LVEF 25% to 30% with global hypokinesis. -- Mild concentric LVH. -- Normal RV size with moderately reduced RV systolic function. -- Mild left atrial dilation. -- Mild mitral regurgitation. -- Mild pulmonary hypertension with an estimated RVSP of 41 mmHg. 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 Patient was a no show twice for cardiology visit in the past Per cardiology, his heart rate needs to be optimized (3) Acute respiratory failure with hypoxia: Plan: Admitted on account of worsening SOB On admission, O2 > 94% Suspect mainly secondary to acute cardiomyopathy (EF dropped to 20-25% from 50- 55%) Initial Chest x ray showed evidence of fluid overload, however, repeat x ray today showed improvement in pulmonary edema Will continue supplemental oxygen and Duonebs, wean as tolerated Clinically much improved, was on room air today (4) Atrial flutter with rapid ventricular response: Plan: Will need renally dosed Eliquis, However, defer for now due to small amounts of bleeding from his permacath site (5) Anemia: Plan: Probably a combination of acute blood loss from permacath palcement and CKD and also Iron def Will start Iron tabs 325mg BID Transfuse if Hb<7 (6) COVID-19: Plan: Not thought to be contributing to his syptoms (7) TANYA (acute kidney injury): Plan: Now on HD Appreciate Nephrology (8) Hyperkalemia: Plan: On HD receck (9) Hyperlipidemia: Plan: Continue atorvastatin 40 mg p.o. daily (10) Type II diabetes mellitus: Plan: HbA1c 7.1 in August. Blood glucose under better control, however, patient has been refusing food and gets hypoglycemic often Will hold his Lantus (11) CAD (coronary artery disease): Plan: S/p CABG x2 vessels (BOSTON to LAD, SVG to OM3) in 2010 Continue aspirin, metoprolol, lisinopril, atorvastatin (12) CKD (chronic kidney disease) stage 4, GFR 15-29 ml/min: Plan: Now on HD Plan VTE prophylaxis - heparin 5000 units every 8 hourly Diet -type 2 diabetes, heart healthy, low-sodium, fluid restriction as above Hopefully d/c when his HR is under better control, a dialysis chair has been established for him Admission and Anticipated Discharge Date Admission Date: December 19, 2022 Subjective Patient seen and examined Patient reports his breathing effort is improved and is tolerating hemodialysis regimen No acute chest pain noted . Physical Exam Physical Exam: Head and ENT no thyroid enlargement trachea midline Cardiovascular S1-S2 are normal no S3 Lungs bilateral air entry fair no wheezing Abdomen soft nondistended positive bowel sounds no rebound tenderness Extremity shows trace edema Neurologically no focal deficits Skin shows no rash no cyanosis Results & Data Results & Data ([facility]) Vital Signs (Past 12 Hours) Vital Signs Temp Pulse Pulse Pulse Resp BP BP 12/25/22 15:50 36.9 C 129 H 20 105/71 12/25/22 12:38 12/25/22 11:45 36.9 C 123 H 20 133/82 12/25/22 08:00 12/25/22 07:48 36.6 C 128 H 19 120/61 12/25/22 06:06 128 H 136/80 Pulse Ox Pulse Ox O2 Del Method O2 Flow Rate 12/25/22 15:50 90 Nasal Cannula 2 12/25/22 12:38 94 03/03/23 11:45 96 Nasal Cannula 2 12/25/22 08:00 Room Air 12/25/22 07:48 91 Nasal Cannula 2 12/25/22 06:06 PG Care Time/CCT Total # of Minutes Spent Total Time Spent with Patient: Total time spent is greater than 50% in coordination of care (as documented) at patient's floor/unit and/or counseling patient: Coding Level of Care Code 57533 SUB INP/OBS CARE 2/35MIN Diagnoses Acute on chronic HFrEF (heart failure with reduced ejection fraction) I50.23 Cardiomyopathy I42.9 Acute respiratory failure with hypoxia J96.01 Atrial flutter with rapid ventricular response I48.92 Anemia D64.9 COVID-19 U07.1 TANYA (acute kidney injury) N17.9 Hyperkalemia E87.5 Hyperlipidemia E78.5 Type II diabetes mellitus E11.9 CAD (coronary artery disease) I25.10 CKD (chronic kidney disease) stage 4, GFR 15-29 ml/min N18.4
[2022-12-25] MEDS: guaiFENesin/DEXTROM SYRUP 200MG/20MG 10ML UDC PO PRN (20:53)
[2022-12-25] MEDS: ATORVASTATIN 40 MG TAB PO SCH (20:53)
[2022-12-25] MEDS: APIXABAN 5 MG TABLET PO SCH (20:53)
[2022-12-25] MEDS: LORazepam 0.5 MG TAB PO PRN (20:53)
[2022-12-25] MEDS: allopurinoL 300 MG TAB PO SCH (20:53)
[2022-12-25] MEDS: TAMSULOSIN HCL 0.4 MG CAP PO SCH (20:54)
[2022-12-25] MEDS: VENLAFAXINE HCL XR 75 MG CAPXR PO SCH (20:54)
[2022-12-26] MEDS: dilTIAZem HCL 125 MG in DEXTROSE 5% 100 ML IV SCH ×3 (05:38→22:16)
[2022-12-26 07:40] LABS: Hematocrit (blood only) 27.5 % (42.0-52.0); Hemoglobin 8.6 g/dl (14.0-18.0); Mean Corpuscular Hemoglobin 30.2 pg (25.0-34.0); Mean Corpuscular Hgb Conc 31.3 g/dL (32.0-36.0); Mean Corpuscular Volume 96.5 fL (80.0-100.0); Platelet Count 104 K/uL (130-400); RDW Coefficient of Variation 16.7 % (11.5-14.5); RDW Standard Deviation 59.3 fL (36.4-46.3); Red Blood Count 2.85 M/uL (4.70-6.10); White Blood Count 6.19 K/ul (4.8-10.8)
[2022-12-26] MEDS: traMADol HCL 50 MG TABLET PO SCH ×2 (08:12→21:09)
[2022-12-26] MEDS: FERROUS SULFATE 325 MG TAB PO SCH ×2 (08:16→17:40)
[2022-12-26] MEDS: buPROPion SR 100 MG TABCR PO SCH (08:16)
[2022-12-26] MEDS: INSULIN ASPART PER UNIT SC SCH ×4 (08:17→20:35)
[2022-12-26] MEDS: APIXABAN 5 MG TABLET PO SCH ×2 (08:17→21:10)
[2022-12-26] MEDS: POLYETHYLENE (MIRALAX) 17 GM PACK PO SCH (08:18)
[2022-12-26] MEDS: PANTOprazole 40 MG TAB PO SCH (08:18)
[2022-12-26 08:27] LABS: Calcium 8.3 mg/dl (8.5-10.1); Potassium 3.9 mmol/L (3.5-5.1)
[2022-12-26 08:32] LABS: BUN Creatinine Ratio 6.5 (10-20); Creatinine Clr Calc Pharmacy 22.4 ml/min; Est GFR (African American) 17.5 ml/min; Est GFR (Non-African American) 15.1 ml/min
[2022-12-26] MEDS ORDERED: HEPARIN SOD (PORCINE) 1000 UNIT/ML IV ONE (09:24)
[2022-12-26] MEDS ORDERED: SODIUM CHLORIDE 0.9% 1000ML 1,000 ML IV PRN (09:24)
[2022-12-26] MEDS ORDERED: EPOETIN ALFA 10,000 UNITS/ML VIAL IV ONE (09:24)
--- NOTE | 2022-12-26 11:02 | Nephrology Progress Note ---
Date of Service December 26, 2022 Assessment & Plan (1) ESRD (end stage renal disease): Plan: now ESRD after TANYA on CKD 4; now on dialysis which I expect to be chronic ESRD d/t advanced vascular disease now w/ ischemic ATN in setting of COVID 19 infection and atrophied R kidney. Creatinine peaked at 5.6 from a baseline of mid threes October 2022. Patient also had metabolic acidosis and hyperkalemia with worsened heart failure, respiratory failure, and volume overload > first HD 12/22 after TDC placement same day -Monitor renal function with daily BMP -Avoid nephrotoxins such as contrast and NSAIDs. -for now continue lasix but look to wean as tolerated >plan HD 3.5 hrs today Target UF 3 L >plan assisted is HHD at [facility] and near term in-center HD at [facility] (2) Systolic heart failure: Plan: cardiology following >> rate control a challenge; HR in 115 range > Rn Bsn planning to start of entresto Admission and Anticipated Discharge Date Admission Date: December 19, 2022 Subjective Seen for acute renal failure on dialysis. Still shortness of breath. No leg swelling. Patient was seen and examined while on dialysis Review of Systems Review of Systems: All other systems were reviewed and negative except as noted in HPI Physical Exam Physical Exam: General exam: Appears comfortable, no acute distress HEENT: Pupils are equal and reactive to light Neck: No JVD, neck is supple trachea is midline Respiratory system: Wheezing bilaterally. Gastrointestinal: Abdomen is soft, non distended, non tender, bowel sounds are present CVS: Regular rate and rhythm. No murmurs, rubs or gallops Musculoskeletal: No joint or muscle tenderness Extremities: Non tender, no edema, peripheral pulses are present Neuro: Oriented, no tremors, no focal neurological deficits Skin: No rashes Results & Data ([facility]) Vital Signs (Past 12 Hours) Vital Signs Temp Pulse Pulse Pulse Resp BP Pulse Ox 12/26/22 09:53 115 H 12/26/22 09:53 12/26/22 07:57 36.6 C 105 H 19 126/76 91 12/26/22 02:53 36.8 C 106 H 20 109/76 93 12/26/22 01:38 115 H 12/26/22 00:32 36.5 C 126 H 20 138/76 90 03/03/23 23:21 126 H O2 Del Method O2 Flow Rate 12/26/22 09:53 12/26/22 09:53 Nasal Cannula 2 12/26/22 07:57 Nasal Cannula 12/26/22 02:53 Nasal Cannula 2 12/26/22 01:38 12/26/22 00:32 Nasal Cannula 2 12/25/22 23:21 Laboratory Results 12/26/22 06:59 12/26/22 06:59 WBC 6.19 RBC 2.85 L MCV 96.5 MCH 30.2 MCHC 31.3 L RDW Std Deviation 59.3 H RDW Coeff of Masoud 16.7 H Plt Count 104 L MPV 13.0 H
--- NOTE | 2022-12-26 12:37 | Cardiology Progress Note ---
Date of Service December 26, 2022 Assessment & Plan (1) Atrial flutter with rapid ventricular response: (2) Systolic heart failure: (3) Cardiomyopathy: (4) Acute respiratory failure with hypoxia: (5) CAD (coronary artery disease): (6) ESRD (end stage renal disease): Plan Complex patient with ischemic/tachycardic cardiomyopathy and HFrEF who is now undergoing dialysis for volume unloading. He still appears mildly volume unloaded, Nephrology notes "continue Lasix" but it does not appear the patient has received furosemide for a number of days. Further dialysis planned today, could augment with intermittent furosemide if he drops to every other day dialysis or if there is any evidence of acute volume overload. Rhythm remains atrial flutter with borderline controlled rate, continue diltiazem infusion but would increase metoprolol from current dose of 200 mg every morning/100 mg every afternoon up to 200 mg p.o. twice daily. Plan for MCKAYLA/cardioversion early next week. As noted, would consider shifting from lisinopril to Entresto, however given current hypertension may need to delay this until he has further volume unloaded. Will continue to follow daily. Admission and Anticipated Discharge Date Admission Date: December 19, 2022 Subjective Uneventful night. He was comfortable at rest, but had been an active. Rhythm remains atrial flutter with somewhat improved ventricular rate (90-110 bpm). No chest pain, dyspnea at rest, orthopnea, or PND. Leg edema mildly improved. Physical Exam Physical Exam: No distress. Weight down 6 pounds by bed scale overnight). BP is mildly hypertensive today. Pulse as noted in the 90-110 bpm range and irregular. Skin: no ecchymoses or generalized lesions. HEENT: unremarkable. Neck: Jugular venous pulse appears mildly elevated, no carotid bruits. Lungs: Mildly diminished breath sounds with bilateral expiratory faint wheezing. No accessory muscle use, intercostal retraction, or abdominal paradox. Cardiac: Fairly irregular/tachycardic rhythm, no obvious murmur (difficult exam due to tachycardia). Abdomen: benign. Extremities: No pretibial edema, pulses intact. Neurologic: normal affect and conversation, nonfocal. Results & Data ([facility]) Laboratory Results Potassium 3.7. BUN 26, creatinine 3.97. Hemoglobin 8.6. PG Care Time/CCT Total # of Minutes Spent Total Time Spent with Patient: Total time spent is greater than 50% in coordination of care (as documented) at patient's floor/unit and/or counseling patient: Coding Level of Care Code 78479 SUB INP/OBS CARE 2/35MIN Diagnoses Atrial flutter with rapid ventricular response I48.92 Systolic heart failure I50.20 Cardiomyopathy I42.9 Acute respiratory failure with hypoxia J96.01 CAD (coronary artery disease) I25.10 ESRD (end stage renal disease) N18.6
[2022-12-26] MEDS: METOPROLOL SUCC 50MG EXT REL TAB PO SCH ×2 (14:52→21:09)
--- NOTE | 2022-12-26 19:36 | Hospitalist Progress Note ---
Date of Service December 26, 2022 Assessment & Plan (1) Acute on chronic HFrEF (heart failure with reduced ejection fraction): Plan: Patient admitted on account of worsening SOB ECHO showed EF 20-25% with global hypokinesis, previous ECHO in 2021 had showed EF 50-55% Etiology of new onset cardiomyopathy is probably tachycardia induced given a flutter w rvr Low-sodium diet, fluid restrict 1500 mL Strict I's and O's Daily weights Continue Lasix and HD Metoprolol 200mg Am, 100 mg PM daily pt with a history of CAD s/p CABG x 2 Vessels April 2011, Hypertension, Dyslipidemia, Carotid Artery Stenoses, Type 2 Diabetes Mellitus, PAD, GERD, CKD with TANYA s/p Tunneled Dialysis Catheter 12/22/22 (starting dialysis), Obesity, Former Smoker, Gout, GERD, Nephrolithiasis, and Generalized Osteoarthritiswho presented to ED with Acute Systolic CHF, Acute Hypoxic Respiratory Failure, newly diagnosed A-Flutter with RVR, and a newly diagnosed Cardiomyopathy ( most likely Tachycardia Induced) who was admitted with Acute Systolic CHF, A-Flutter with RVR, Acute Hypoxic Respiratory Failure, and tested positive for COVID 19. Echocardiogram 12/20/22: -- Top normal LV size with severely reduced LV systolic function. -- LVEF 25% to 30% with global hypokinesis. -- Mild concentric LVH. -- Normal RV size with moderately reduced RV systolic function. -- Mild left atrial dilation. -- Mild mitral regurgitation. -- Mild pulmonary hypertension with an estimated RVSP of 41 mmHg. 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 Patient was a no show twice for cardiology visit in the past Per cardiology, his heart rate needs to be optimized (3) Acute respiratory failure with hypoxia: Plan: Admitted on account of worsening SOB On admission, O2 > 94% Suspect mainly secondary to acute cardiomyopathy (EF dropped to 20-25% from 50- 55%) Initial Chest x ray showed evidence of fluid overload, however, repeat x ray today showed improvement in pulmonary edema Will continue supplemental oxygen and Duonebs, wean as tolerated Clinically much improved, was on room air today (4) Atrial flutter with rapid ventricular response: Plan: Will need renally dosed Eliquis, However, defer for now due to small amounts of bleeding from his permacath site (5) Anemia: Plan: Probably a combination of acute blood loss from permacath palcement and CKD and also Iron def Will start Iron tabs 325mg BID Transfuse if Hb<7 (6) COVID-19: Plan: Not thought to be contributing to his syptoms (7) TANYA (acute kidney injury): Plan: Now on HD Appreciate Nephrology input (8) Hyperkalemia: Plan: On HD receck (9) Hyperlipidemia: Plan: Continue atorvastatin 40 mg p.o. daily (10) Type II diabetes mellitus: Plan: HbA1c 7.1 in August. Blood glucose under better control, however, patient has been refusing food and gets hypoglycemic often Will hold his Lantus (11) CAD (coronary artery disease): Plan: S/p CABG x2 vessels (BOSTON to LAD, SVG to OM3) in 2010 Continue aspirin, metoprolol, lisinopril, atorvastatin (12) CKD (chronic kidney disease) stage 4, GFR 15-29 ml/min: Plan: Now on HD Plan VTE prophylaxis - heparin 5000 units every 8 hourly Diet -type 2 diabetes, heart healthy, low-sodium, fluid restriction as above Hopefully d/c when his HR is under better control, a dialysis chair has been established for him Admission and Anticipated Discharge Date Admission Date: December 19, 2022 Subjective Patient reports feeling slightly improved had HD treatment today otherwise no acute chest pain or shortness of breath reported Physical Exam Physical Exam: Head and ENT no thyroid enlargement trachea midline Cardiovascular S1-S2 are normal no S3 Lungs bilateral air entry fair no wheezing Abdomen soft nondistended positive bowel sounds no rebound tenderness Extremity shows trace edema improving Neurologically no focal deficits Skin shows no rash no cyanosis Results & Data Results & Data ([facility]) Vital Signs (Past 12 Hours) Vital Signs Temp Pulse Pulse Pulse Pulse Resp BP 12/26/22 19:24 37.1 C 106 H 18 12/26/22 17:44 107 H 12/26/22 14:26 36.6 C 129 H 12/26/22 14:00 129 H 149/104 H 12/26/22 14:54 36.8 C 127 H 18 12/26/22 13:30 127 H 143/86 H 12/26/22 13:00 124 H 150/97 H 12/26/22 12:30 107 H 172/98 H 12/26/22 12:00 101 H 153/75 H 12/26/22 11:30 95 H 150/97 H 12/26/22 11:00 95 H 144/97 H 12/26/22 10:52 115 H 133/86 12/26/22 10:48 37 C 118 H 12/26/22 09:53 115 H 12/26/22 09:53 12/26/22 07:57 36.6 C 105 H 19 BP BP Pulse Ox O2 Del Method O2 Flow Rate 12/26/22 19:24 106/55 L 93 Nasal Cannula 3 12/26/22 17:44 12/26/22 14:26 158/99 H 12/26/22 14:00 12/26/22 14:54 139/82 91 Nasal Cannula 3 12/26/22 13:30 12/26/22 13:00 12/26/22 12:30 12/26/22 12:00 12/26/22 11:30 12/26/22 11:00 12/26/22 10:52 12/26/22 10:48 12/26/22 09:53 12/26/22 09:53 Nasal Cannula 2 12/26/22 07:57 126/76 91 Nasal Cannula Laboratory Results Short CBC 12/26/22 Range/Units 06:59 WBC 6.19 (4.8-10.8) K/ul Hgb 8.6 L (14.0-18.0) g/dl Hct 27.5 L (42.0-52.0) % Plt Count 104 L (130-400) K/uL BMP 12/26/22 06:59 Sodium 133 L Potassium 3.9 Chloride 98 Carbon Dioxide 29 BUN 26 H Creatinine 3.97 H D Glucose 137 H Calcium 8.3 L PG Care Time/CCT Total # of Minutes Spent Total Time Spent with Patient: Total time spent is greater than 50% in coordination of care (as documented) at patient's floor/unit and/or counseling patient: Coding Level of Care Code 44634 SUB INP/OBS CARE 2/35MIN Diagnoses Acute on chronic HFrEF (heart failure with reduced ejection fraction) I50.23 Cardiomyopathy I42.9 Acute respiratory failure with hypoxia J96.01 Atrial flutter with rapid ventricular response I48.92 Anemia D64.9 COVID-19 U07.1 TANYA (acute kidney injury) N17.9 Hyperkalemia E87.5 Hyperlipidemia E78.5 Type II diabetes mellitus E11.9 CAD (coronary artery disease) I25.10 CKD (chronic kidney disease) stage 4, GFR 15-29 ml/min N18.4
[2022-12-26] MEDS: VENLAFAXINE HCL XR 75 MG CAPXR PO SCH (21:09)
[2022-12-26] MEDS: LORazepam 0.5 MG TAB PO PRN (21:09)
[2022-12-26] MEDS: allopurinoL 300 MG TAB PO SCH (21:09)
[2022-12-26] MEDS: TAMSULOSIN HCL 0.4 MG CAP PO SCH (21:09)
[2022-12-26] MEDS: guaiFENesin/DEXTROM SYRUP 200MG/20MG 10ML UDC PO PRN (21:09)
[2022-12-26] MEDS: ATORVASTATIN 40 MG TAB PO SCH (21:09)
[2022-12-27] MEDS: dilTIAZem HCL 125 MG in DEXTROSE 5% 100 ML IV SCH ×3 (06:15→18:31)
[2022-12-27 07:32] LABS: BUN Creatinine Ratio 5.4 (10-20); Calcium 8.4 mg/dl (8.5-10.1); Creatinine Clr Calc Pharmacy 26.3 ml/min; Est GFR (African American) 21.4 ml/min; Est GFR (Non-African American) 18.5 ml/min
[2022-12-27 07:33] LABS: Hematocrit (blood only) 27.1 % (42.0-52.0); Hemoglobin 8.5 g/dl (14.0-18.0); Mean Corpuscular Hemoglobin 29.8 pg (25.0-34.0); Mean Corpuscular Hgb Conc 31.4 g/dL (32.0-36.0); Mean Corpuscular Volume 95.1 fL (80.0-100.0); Platelet Count 106 K/uL (130-400); RDW Coefficient of Variation 16.9 % (11.5-14.5); RDW Standard Deviation 58.5 fL (36.4-46.3); Red Blood Count 2.85 M/uL (4.70-6.10); White Blood Count 6.46 K/ul (4.8-10.8)
[2022-12-27] MEDS: INSULIN ASPART PER UNIT SC SCH ×4 (08:51→20:17)
[2022-12-27] MEDS: traMADol HCL 50 MG TABLET PO SCH ×2 (09:04→20:15)
[2022-12-27] MEDS: POLYETHYLENE (MIRALAX) 17 GM PACK PO SCH (09:05)
[2022-12-27] MEDS: buPROPion SR 100 MG TABCR PO SCH (09:05)
[2022-12-27] MEDS: APIXABAN 5 MG TABLET PO SCH ×2 (09:05→20:16)
[2022-12-27] MEDS: PANTOprazole 40 MG TAB PO SCH (09:05)
[2022-12-27] MEDS: FERROUS SULFATE 325 MG TAB PO SCH ×2 (09:05→17:36)
[2022-12-27] MEDS: METOPROLOL SUCC 50MG EXT REL TAB PO SCH ×2 (09:05→20:16)
--- NOTE | 2022-12-27 13:22 | Cardiology Progress Note ---
Date of Service December 27, 2022 Assessment & Plan (1) Atrial flutter with rapid ventricular response: (2) Systolic heart failure: (3) Cardiomyopathy: (4) Acute respiratory failure with hypoxia: (5) CAD (coronary artery disease): (6) ESRD (end stage renal disease): Plan Complex patient with ischemic/tachycardic cardiomyopathy and HFrEF who is now undergoing dialysis for volume unloading. No major change in status, he is no longer on a diuretic. Rhythm remains atrial flutter with now controlled rate, would increase metoprolol from current dose of 200 mg every morning/100 mg every afternoon up to 200 mg p.o. twice daily and wean diltiazem as able (titrate to keep rate less than 110 bpm). Plan for MCKAYLA/cardioversion early next week. As noted, would consider shifting from lisinopril to Entresto. Admission and Anticipated Discharge Date Admission Date: December 19, 2022 Subjective Uneventful night. Complains of some abdominal bloating today, no other issues. Denies chest pain, dyspnea, subjective palpitations, or lightheadedness. Rhythm remains atrial flutter, rate control improved (currently 70-80 bpm). Physical Exam Physical Exam: No distress. Weight up 2 pounds by bed scale overnight. BP normotensive today. Pulse 7080 bpm range and irregular. Skin: no ecchymoses or generalized lesions. HEENT: unremarkable. Neck: Jugular venous pulse appears mildly elevated, no carotid bruits. Lungs: Mildly diminished breath sounds with bilateral expiratory faint wheezing. No accessory muscle use, intercostal retraction, or abdominal paradox. Cardiac: Fairly irregular rhythm, no obvious murmur. Abdomen: benign. Extremities: No pretibial edema, pulses intact. Neurologic: normal affect and conversation, nonfocal. Results & Data ([facility]) Laboratory Results Normal electrolytes, BUN 18, creatinine 3.35. PG Care Time/CCT Total # of Minutes Spent Total Time Spent with Patient: Total time spent is greater than 50% in coordination of care (as documented) at patient's floor/unit and/or counseling patient: Coding Level of Care Code 59176 SUB INP/OBS CARE 2/35MIN Diagnoses Atrial flutter with rapid ventricular response I48.92 Systolic heart failure I50.20 Cardiomyopathy I42.9 Acute respiratory failure with hypoxia J96.01 CAD (coronary artery disease) I25.10 ESRD (end stage renal disease) N18.6
--- NOTE | 2022-12-27 17:38 | Hospitalist Progress Note ---
Date of Service December 27, 2022 Assessment & Plan (1) Acute on chronic HFrEF (heart failure with reduced ejection fraction): Plan: Patient admitted on account of worsening SOB ECHO showed EF 20-25% with global hypokinesis, previous ECHO in 2021 had showed EF 50-55% Etiology of new onset cardiomyopathy is probably tachycardia induced given a flutter w rvr Low-sodium diet, fluid restrict 1500 mL Strict I's and O's Daily weights Continue Lasix and HD Metoprolol 200mg Am, 100 mg PM daily pt with a history of CAD s/p CABG x 2 Vessels April 2011, Hypertension, Dyslipidemia, Carotid Artery Stenoses, Type 2 Diabetes Mellitus, PAD, GERD, CKD with TANYA s/p Tunneled Dialysis Catheter 12/22/22 (starting dialysis), Obesity, Former Smoker, Gout, GERD, Nephrolithiasis, and Generalized Osteoarthritiswho presented to ED with Acute Systolic CHF, Acute Hypoxic Respiratory Failure, newly diagnosed A-Flutter with RVR, and a newly diagnosed Cardiomyopathy ( most likely Tachycardia Induced) who was admitted with Acute Systolic CHF, A-Flutter with RVR, Acute Hypoxic Respiratory Failure, and tested positive for COVID 19. Echocardiogram 12/20/22: -- Top normal LV size with severely reduced LV systolic function. -- LVEF 25% to 30% with global hypokinesis. -- Mild concentric LVH. -- Normal RV size with moderately reduced RV systolic function. -- Mild left atrial dilation. -- Mild mitral regurgitation. -- Mild pulmonary hypertension with an estimated RVSP of 41 mmHg. -- Compared to prior study 10/02/2022; LV systolic function has declined 3/5- Patient with ischemic cardiomyopathy recently started on HD treatment for volume control Appreciate cardiology attempts to rate control with metoprolol with increasing doses And attempt to wean patient off Cardizem Tentative plan for MCKAYLA and cardioversion as per cardiology Patient respiratory status is otherwise acceptable DC planning in conjunction with cardiology plans (2) Cardiomyopathy: Plan: Most likely tachycardia induce cardiomyopathy Patient was a no show twice for cardiology visit in the past Per cardiology, his heart rate needs to be optimized (3) Acute respiratory failure with hypoxia: Plan: Admitted on account of worsening SOB On admission, O2 > 94% Suspect mainly secondary to acute cardiomyopathy (EF dropped to 20-25% from 50- 55%) Initial Chest x ray showed evidence of fluid overload, however, repeat x ray today showed improvement in pulmonary edema Will continue supplemental oxygen and Duonebs, wean as tolerated Clinically much improved, was on room air today (4) Atrial flutter with rapid ventricular response: Plan: Will need renally dosed Eliquis, However, defer for now due to small amounts of bleeding from his permacath site (5) Anemia: Plan: Probably a combination of acute blood loss from permacath palcement and CKD and also Iron def Will start Iron tabs 325mg BID Transfuse if Hb<7 (6) COVID-19: Plan: Not thought to be contributing to his syptoms (7) TANYA (acute kidney injury): Plan: Now on HD Appreciate Nephrology input (8) Hyperkalemia: Plan: On HD receck (9) Hyperlipidemia: Plan: Continue atorvastatin 40 mg p.o. daily (10) Type II diabetes mellitus: Plan: HbA1c 7.1 in August. Blood glucose under better control, however, patient has been refusing food and gets hypoglycemic often Will hold his Lantus (11) CAD (coronary artery disease): Plan: S/p CABG x2 vessels (BOSTON to LAD, SVG to OM3) in 2010 Continue aspirin, metoprolol, lisinopril, atorvastatin (12) CKD (chronic kidney disease) stage 4, GFR 15-29 ml/min: Plan: Now on HD Plan VTE prophylaxis - heparin 5000 units every 8 hourly Diet -type 2 diabetes, heart healthy, low-sodium, fluid restriction as above Hopefully d/c when his HR is under better control, a dialysis chair has been established for him Admission and Anticipated Discharge Date Admission Date: December 19, 2022 Subjective Patient seen and examined Some abdominal bloating sensation otherwise no chest pain or shortness of breath Patient remains in atrial flutter Physical Exam Physical Exam: Head and ENT no thyroid enlargement trachea midline Cardiovascular S1-S2 l no S3 Lungs bilateral air entry fair no wheezing Abdomen soft nondistended positive bowel sounds no rebound tenderness Extremity shows trace edema improving Neurologically no focal deficits Skin shows no rash no cyanosis Results & Data Results & Data ([facility]) Vital Signs (Past 12 Hours) Vital Signs Temp Pulse Pulse Pulse Resp BP Pulse Ox 12/27/22 16:59 36.6 C 121 H 17 136/87 89 L 12/27/22 16:44 79 12/27/22 12:20 36.6 C 74 18 117/78 91 12/27/22 08:00 36.8 C 87 18 120/84 95 12/27/22 08:00 O2 Del Method O2 Flow Rate 12/27/22 16:59 Nasal Cannula 3 12/27/22 16:44 12/27/22 12:20 Room Air 12/27/22 08:00 Nasal Cannula 3 12/27/22 08:00 Nasal Cannula 3 Laboratory Results Short CBC 12/27/22 Range/Units 06:33 WBC 6.46 (4.8-10.8) K/ul Hgb 8.5 L (14.0-18.0) g/dl Hct 27.1 L (42.0-52.0) % Plt Count 106 L (130-400) K/uL BMP 12/27/22 06:33 Sodium 135 L Potassium 4.0 Chloride 98 Carbon Dioxide 32 BUN 18 Creatinine 3.35 H D Glucose 133 H Calcium 8.4 L PG Care Time/CCT Total # of Minutes Spent Total Time Spent with Patient: Total time spent is greater than 50% in coordination of care (as documented) at patient's floor/unit and/or counseling patient: Coding Level of Care Code 48435 SUB INP/OBS CARE 2/35MIN Diagnoses Acute on chronic HFrEF (heart failure with reduced ejection fraction) I50.23 Cardiomyopathy I42.9 Acute respiratory failure with hypoxia J96.01 Atrial flutter with rapid ventricular response I48.92 Anemia D64.9 COVID-19 U07.1 TANYA (acute kidney injury) N17.9 Hyperkalemia E87.5 Hyperlipidemia E78.5 Type II diabetes mellitus E11.9 CAD (coronary artery disease) I25.10 CKD (chronic kidney disease) stage 4, GFR 15-29 ml/min N18.4
[2022-12-27] MEDS: VENLAFAXINE HCL XR 75 MG CAPXR PO SCH (20:15)
[2022-12-27] MEDS: guaiFENesin/DEXTROM SYRUP 200MG/20MG 10ML UDC PO PRN (20:15)
[2022-12-27] MEDS: LORazepam 0.5 MG TAB PO PRN (20:15)
[2022-12-27] MEDS: allopurinoL 300 MG TAB PO SCH (20:15)
[2022-12-27] MEDS: TAMSULOSIN HCL 0.4 MG CAP PO SCH (20:16)
[2022-12-27] MEDS: ATORVASTATIN 40 MG TAB PO SCH (20:17)
[2022-12-28] MEDS: dilTIAZem HCL 125 MG in DEXTROSE 5% 100 ML IV SCH ×4 (06:30→23:06)
[2022-12-28 08:00] LABS: Hematocrit (blood only) 27.7 % (42.0-52.0); Hemoglobin 8.5 g/dl (14.0-18.0); Mean Corpuscular Hemoglobin 29.9 pg (25.0-34.0); Mean Corpuscular Hgb Conc 30.7 g/dL (32.0-36.0); Mean Corpuscular Volume 97.5 fL (80.0-100.0); Mean Platelet Volume 12.7 fL (9.4-12.4); Platelet Count 106 K/uL (130-400); RDW Coefficient of Variation 16.7 % (11.5-14.5); Red Blood Count 2.84 M/uL (4.70-6.10); White Blood Count 6.06 K/ul (4.8-10.8)
[2022-12-28 08:14] LABS: BUN Creatinine Ratio 5.7 (10-20); Calcium 8.5 mg/dl (8.5-10.1); Creatinine Clr Calc Pharmacy 18.5 ml/min; Est GFR (Non-African American) 12.1 ml/min
[2022-12-28] MEDS: FERROUS SULFATE 325 MG TAB PO SCH ×2 (08:17→17:01)
[2022-12-28] MEDS: traMADol HCL 50 MG TABLET PO SCH ×2 (08:17→21:07)
[2022-12-28] MEDS: POLYETHYLENE (MIRALAX) 17 GM PACK PO SCH (08:17)
[2022-12-28] MEDS: APIXABAN 5 MG TABLET PO SCH (08:17)
[2022-12-28] MEDS: PANTOprazole 40 MG TAB PO SCH (08:17)
[2022-12-28] MEDS: buPROPion SR 100 MG TABCR PO SCH (08:17)
[2022-12-28] MEDS: METOPROLOL SUCC 50MG EXT REL TAB PO SCH ×2 (08:18→21:03)
[2022-12-28] MEDS: INSULIN ASPART PER UNIT SC SCH ×4 (08:19→19:54)
--- NOTE | 2022-12-28 09:58 | Cardiology Progress Note ---
Date of Service December 28, 2022 Assessment & Plan (1) Atrial flutter with rapid ventricular response: (2) Systolic heart failure: (3) Cardiomyopathy: (4) Acute respiratory failure with hypoxia: (5) CAD (coronary artery disease): (6) ESRD (end stage renal disease): Plan Mr. Holman is a 62-year-old male with a history of CAD s/p CABG x 2 Vessels April 2011, Hypertension, Dyslipidemia, Carotid Artery Stenoses, Type 2 Diabetes Mellitus, PAD, GERD, CKD with TANYA s/p Tunneled Dialysis Catheter 12/22/22 (starting dialysis), Obesity, Former Smoker, Gout, GERD, Nephrolithiasis, and Generalized Osteoarthritiswho presented to [facility] on 12/19/2022 with Acute Systolic CHF, Acute Hypoxic Respiratory Failure, newly diagnosed A-Flutter with RVR, and a newly diagnosed Cardiomyopathy (most likely Tachycardia Induced). Patient remains in rapid atrial flutter but his heart rate has improved, averaging less than 100 bpm over the past 24 hours. He appears to be euvolemic Patient has not had any angina pectoris or burning chest pain, nor has he had any symptoms suggestive of stroke or mini stroke. We discussed the ongoing management of his Cardiomyopathy. I suspect that his Cardiomyopathy is tachycardia induced due Rapid Atrial Flutter -- so controlling his heart rate is of utmost importance. His [id number] is 3 -- so long-term anticoagulation is indicated. Annual stroke risk is 3.2% based on this score. Recommend the followin. Hgb is starting to climb, it is up to 8.5 g/dL and it is felt that his anemia is related to his renal disease +/- oozing from tunneled dialysis catheter. Therefore begin Eliquis, stop SQ Heparin. 2. Continue IV Lopressor 5 mg q 4 hours for HR > 110 bpm. 3. Before discharge, stop Lisinopril x 36 hours and begin Entresto 24-26 mg every 12 hours. 4. Manage volume with dialysis. 5. Increase Metoprolol Succinate ER to 200 mg b.i.d.. 6. Continue Atorvastatin 40 mg daily. 7. Strict 2 g low-sodium diet, fluid restriction. 8. Monitor daily body weights and I&O's. 9. Wean Diltiazem Drip. 10. Plan is to proceed with MCKAYLA/Cardioversion early next week and ultimately an A-Flutter Ablation. Patient verbalized understanding of our discussions today. He agrees with this plan. We will continue to follow while hospitalized and following discharge. Admission and Anticipated Discharge Date Admission Date: December 19, 2022 Subjective Mr. Holman continues to improve clinically, his heart rate has been better controlled particularly over the past 24 hours on a combination of Toprol XL and Cardizem drip. Cardizem however is not a long-term solution because of his reduced LV systolic function. Patient's breathing has improved, he is able to walk across his roomwithout any significant shortness of breath. He continues to use supplemental oxygen. He continues dialysis which has helped of volume management. He denies any chest pain, heaviness, tightness, or pressure. Patient has not had any angina pectoris. He denies any orthopnea or PND. Palpitations are less frequent since his heart rate is better controlled. He denies any syncope or near syncope. Patient has not had any symptoms suggestive of stroke or mini stroke. He is tolerating Eliquis without adverse side effects or bleeding. His attending hospitalist reduced his dose of Eliquis 2.5 mg b.i.d.. Review of Systems Review of Systems: 10 point ROS completed and is negative with the exception of what is mentioned in the HPI. Physical Exam Physical Exam: General: Patient is being seen in the PACU, BiPAP with O2 in place. HEENT: Head is atraumatic, normocephalic. EOMs intact. Sclera anicteric. Neck: No JVD. JVP is not elevated. Carotid upstrokes are +2 bilaterally without obvious bruits. Chest and Lungs: Mildly diminished breath sounds throughout. CVS: S1 and S2 are regular at 88 bpm with a grade 1/6 basal systolic murmur heard best at the right 2nd intercostal space. No obvious diastolic murmurs. No gallops or rubs. PMI is nonpalpable. No lifts, heaves, or thrills. No abdominal aortic or renal bruits. Median sternotomy scar is present. Abdominal Exam: Bowel sounds present. No masses, organomegaly, or tenderness. Extremities: No peripheral edema. + 2 radial artery pulsations bilaterally. Neurologic Exam: Patient is interact. Answers questions appropriately. Speech is clear. PIE FILLER: -- A-Flutter with improved ventricular response rate, over the past 24 hours is average heart rate is less than 100 bpm. Results & Data ([facility]) Vital Signs (Past 12 Hours) Vital Signs Temp Pulse Pulse Pulse Pulse Resp BP 12/28/22 07:51 36.7 C 101 H 20 125/82 12/28/22 06:35 105 H 20 12/28/22 04:37 36.5 C 86 20 99/59 L 12/28/22 00:00 102 H 12/27/22 23:21 36.5 C 122 H 20 BP Pulse Ox O2 Del Method O2 Flow Rate 12/28/22 07:51 95 Room Air 12/28/22 06:35 129/91 96 Nasal Cannula 3 12/28/22 04:37 93 Nasal Cannula 3 12/28/22 00:00 12/27/22 23:21 121/80 94 Nasal Cannula 3 Laboratory Results Laboratory Results - last 24 hr 12/27/22 12/27/22 12/27/22 11:47 16:46 20:00 WBC RBC Hgb Hct MCV MCH MCHC RDW Std Deviation RDW Coeff of Masoud Plt Count MPV Sodium Potassium Chloride Carbon Dioxide Anion Gap BUN Creatinine Est Cr Clr Drug Dosing Est GFR ( Amer) Est GFR (Non-Af Amer) BUN/Creatinine Ratio Glucose POC Glucose 115 H 107 H 93 Calcium 12/28/22 12/28/22 12/28/22 07:26 07:26 07:48 WBC 6.06 RBC 2.84 L Hgb 8.5 L Hct 27.7 L MCV 97.5 MCH 29.9 MCHC 30.7 L RDW Std Deviation 60.0 H RDW Coeff of Masoud 16.7 H Plt Count 106 L MPV 12.7 H Sodium 134 L Potassium 4.0 Chloride 98 Carbon Dioxide 30 Anion Gap 6 BUN 27 H Creatinine 4.76 H* D Est Cr Clr Drug Dosing 18.5 Est GFR ( Amer) 14.0 Est GFR (Non-Af Amer) 12.1 BUN/Creatinine Ratio 5.7 L Glucose 96 POC Glucose 90 Calcium 8.5 Medications Administered Medication List Allopurinol (Allopurinol 300 Mg Tab) 300 mg PO HS ROXY Stop: 01/18/23 20:59 Last Admin: 12/27/22 20:15 Dose: 300 mg Documented By: Admin: 12/26/22 21:09 Dose: 300 mg Documented By: Admin: 12/25/22 20:53 Dose: 300 mg Documented By: Admin: 12/24/22 20:49 Dose: 300 mg Documented By: Admin: 12/23/22 21:02 Dose: 300 mg Documented By: Admin: 12/22/22 20:32 Dose: 300 mg Documented By: Admin: 12/21/22 20:51 Dose: 300 mg Documented By: Admin: 12/20/22 20:35 Dose: 300 mg Documented By: Admin: 12/19/22 20:33 Dose: 300 mg Documented By: NLM Atorvastatin Calcium (Atorvastatin 40 Mg Tab) 40 mg PO HS ROXY Stop: 01/18/23 20:59 Last Admin: 12/27/22 20:17 Dose: 40 mg Documented By: Admin: 12/26/22 21:09 Dose: 40 mg Documented By: Admin: 12/25/22 20:53 Dose: 40 mg Documented By: Admin: 12/24/22 20:48 Dose: 40 mg Documented By: Admin: 12/23/22 21:01 Dose: 40 mg Documented By: Admin: 12/22/22 20:33 Dose: 40 mg Documented By: Admin: 12/21/22 20:53 Dose: 40 mg Documented By: Admin: 12/20/22 20:34 Dose: 40 mg Documented By: Admin: 12/19/22 20:33 Dose: 40 mg Documented By: NLM Bupropion HCl (Bupropion Sr 100 Mg Tabcr) 100 mg PO DAILY ROXY Stop: 01/19/23 08:59 Last Admin: 12/28/22 08:17 Dose: 100 mg Documented By: Admin: 12/27/22 09:05 Dose: 100 mg Documented By: Admin: 12/26/22 08:16 Dose: 100 mg Documented By: Admin: 12/25/22 08:26 Dose: 100 mg Documented By: Admin: 12/24/22 08:13 Dose: 100 mg Documented By: Admin: 12/23/22 07:23 Dose: 100 mg Documented By: Admin: 12/22/22 14:42 Dose: 100 mg Documented By: Admin: 12/21/22 09:59 Dose: 100 mg Documented By: Admin: 12/20/22 08:46 Dose: 100 mg Documented By: KASSIDY Dextrose (Dextrose 50% 50 Ml Syringe) 25 - 50 ml IV UD PRN; Protocol PRN Reason: Hypoglycemia Protocol Stop: 01/18/23 18:38 Last Admin: 12/22/22 07:58 Dose: 25 ml Documented By: ISADORA Ferrous Sulfate (Ferrous Sulfate 325 Mg Tab) 325 mg PO BIDM ROXY Stop: 01/23/23 16:59 Last Admin: 12/28/22 08:17 Dose: 325 mg Documented By: Admin: 12/27/22 17:36 Dose: 325 mg Documented By: Admin: 12/27/22 09:05 Dose: 325 mg Documented By: Admin: 12/26/22 17:40 Dose: 325 mg Documented By: Admin: 12/26/22 08:16 Dose: 325 mg Documented By: Admin: 12/25/22 18:34 Dose: 325 mg Documented By: Admin: 12/25/22 08:22 Dose: 325 mg Documented By: Admin: 12/24/22 17:18 Dose: 325 mg Documented By: BALBINA Guaifenesin/Dextromethorphan (Guaifenesin/Dextrom Syrup 200mg/20mg 10ml Udc) 10 ml PO Q6H PRN PRN Reason: Cough Stop: 01/22/23 08:02 Last Admin: 12/27/22 20:15 Dose: 10 ml Documented By: Admin: 12/26/22 21:09 Dose: 10 ml Documented By: Admin: 12/25/22 20:53 Dose: 10 ml Documented By: Admin: 12/24/22 20:51 Dose: 10 ml Documented By: Admin: 12/23/22 08:30 Dose: 10 ml Documented By: HARSHAL Diltiazem HCl 125 mg/ Dextrose 125 mls @ 15 mls/hr IV .Q8H20M [facility]; Protocol Stop: 01/24/23 10:29 Last Titration: 12/28/22 07:05 Dose: 15 mg/hr, 15 mls/hr Documented By: JESÚS Co-signed By: CHANEL Admin: 12/28/22 06:30 Dose: 15 mg/hr, 15 mls/hr Documented By: CHANEL Co-signed By: BK Titration: 12/28/22 04:41 Dose: 15 mg/hr, 15 mls/hr Documented By: TG Co-signed By: BK Titration: 12/28/22 01:10 Dose: 15 mg/hr, 15 mls/hr Documented By: TG Co-signed By: CF Titration: 12/27/22 19:32 Dose: 10 mg/hr, 10 mls/hr Documented By: TG Co-signed By: CM Admin: 12/27/22 18:31 Dose: Not Given Documented By: Admin: 12/27/22 17:56 Dose: 10 mg/hr, 10 mls/hr Documented By: CM Co-signed By: KGY Titration: 12/27/22 17:52 Dose: 5 mg/hr, 5 mls/hr Documented By: CM Co-signed By: KGY Titration: 12/27/22 13:28 Dose: 5 mg/hr, 5 mls/hr Documented By: CM Co-signed By: CA Titration: 12/27/22 12:25 Dose: 10 mg/hr, 10 mls/hr Documented By: CM Co-signed By: CA Admin: 12/27/22 06:15 Dose: 15 mg/hr, 15 mls/hr Documented By: GH Co-signed By: KJS Titration: 12/27/22 06:15 Dose: 15 mg/hr, 15 mls/hr Documented By: GH Co-signed By: KJS Admin: 12/26/22 22:16 Dose: 15 mg/hr, 15 mls/hr Documented By: GH Co-signed By: RC Titration: 12/26/22 22:01 Dose: 15 mg/hr, 15 mls/hr Documented By: GH Co-signed By: RC Admin: 12/26/22 13:41 Dose: 15 mg/hr, 15 mls/hr Documented By: CM Co-signed By: KEG Titration: 12/26/22 13:41 Dose: 15 mg/hr, 15 mls/hr Documented By: CM Co-signed By: KEG Admin: 12/26/22 05:38 Dose: 15 mg/hr, 15 mls/hr Documented By: GH Co-signed By: RC Titration: 12/26/22 05:20 Dose: 15 mg/hr, 15 mls/hr Documented By: GH Co-signed By: RC Admin: 12/25/22 21:00 Dose: 15 mg/hr, 15 mls/hr Documented By: YADRIA Co-signed By: ERIC Titration: 12/25/22 20:58 Dose: 15 mg/hr, 15 mls/hr Documented By: GH Co-signed By: KJS Titration: 12/25/22 19:03 Dose: 15 mg/hr, 15 mls/hr Documented By: HERMINIA Co-signed By: GH Titration: 12/25/22 14:45 Dose: 15 mg/hr, 15 mls/hr Documented By: HERMINIA Co-signed By: MAD Titration: 12/25/22 13:30 Dose: 10 mg/hr, 10 mls/hr Documented By: HERMINIA Co-signed By: MAD Admin: 12/25/22 12:20 Dose: 5 mg/hr, 5 mls/hr Documented By: HERMINIA Co-signed By: CHARU Insulin Aspart (Insulin Aspart Per Unit) 0 units SC ACHS ROXY Stop: 01/18/23 20:59 Last Admin: 12/28/22 08:19 Dose: Not Given Documented By: Admin: 12/27/22 20:17 Dose: Not Given Documented By: Admin: 12/27/22 17:50 Dose: 3 units Documented By: KARMA Co-signed By: HARSHAL Admin: 12/27/22 11:58 Dose: Not Given Documented By: Admin: 12/27/22 08:51 Dose: 6 units Documented By: KARMA Co-signed By: HERMINIO Admin: 12/26/22 20:35 Dose: Not Given Documented By: Admin: 12/26/22 17:02 Dose: Not Given Documented By: Admin: 12/26/22 14:51 Dose: Not Given Documented By: Admin: 12/26/22 08:17 Dose: Not Given Documented By: Admin: 12/25/22 19:29 Dose: Not Given Documented By: Admin: 12/25/22 17:32 Dose: Not Given Documented By: Admin: 12/25/22 14:37 Dose: Not Given Documented By: Admin: 12/25/22 09:21 Dose: Not Given Documented By: Admin: 12/24/22 20:38 Dose: Not Given Documented By: Admin: 12/24/22 18:17 Dose: Not Given Documented By: BALBINA Co-signed By: PERRY Admin: 12/24/22 12:52 Dose: Not Given Documented By: BALBINA Co-signed By: PERRY Admin: 12/24/22 08:26 Dose: Not Given Documented By: BALBINA Co-signed By: GENTRY Admin: 12/23/22 21:02 Dose: Not Given Documented By: Admin: 12/23/22 17:31 Dose: Not Given Documented By: N Admin: 12/23/22 12:35 Dose: Not Given Documented By: N Admin: 12/23/22 10:02 Dose: Not Given Documented By: Stefanie Admin: 12/22/22 20:32 Dose: Not Given Documented By: Admin: 12/22/22 17:38 Dose: Not Given Documented By: Stefanie Admin: 12/22/22 14:44 Dose: Not Given Documented By: Stefanie Admin: 12/22/22 08:29 Dose: Not Given Documented By: Stefanie Admin: 12/21/22 20:53 Dose: Not Given Documented By: Admin: 12/21/22 16:52 Dose: Not Given Documented By: [facility] Admin: 12/21/22 12:14 Dose: Not Given Documented By: [facility] Admin: 12/21/22 10:22 Dose: Not Given Documented By: [facility] Admin: 12/20/22 20:51 Dose: Not Given Documented By: Admin: 12/20/22 16:54 Dose: 4 units Documented By: KASSIDY Co-signed By: CARTER Admin: 12/20/22 12:08 Dose: 5 units Documented By: KASSIDY Co-signed By: [facility] Admin: 12/20/22 08:40 Dose: 5 units Documented By: KASSIDY Co-signed By: CARTER Admin: 12/19/22 21:51 Dose: 2 units Documented By: DUSTY Co-signed By: ERIC Insulin Glargine (Lantus Per Unit Charge) 10 units SQ BID ROXY Stop: 01/18/23 20:59 Last Admin: 12/22/22 10:30 Dose: Not Given Documented By: Admin: 12/21/22 21:07 Dose: 10 units Documented By: DUSTY Co-signed By: REINIER Admin: 12/21/22 10:00 Dose: 10 units Documented By: ROSEANNE Co-signed By: CARTER Admin: 12/20/22 20:52 Dose: 10 units Documented By: MARY Co-signed By: ERIC Admin: 12/20/22 08:40 Dose: 10 units Documented By: KASSIDY Co-signed By: CARTER Admin: 12/19/22 21:51 Dose: 10 units Documented By: DUSTY Co-signed By: ERIC Lorazepam (Lorazepam 0.5 Mg Tab) 0.5 mg PO HS PRN PRN Reason: anxiety/insomnia Stop: 01/18/23 18:38 Last Admin: 12/27/22 20:15 Dose: 0.5 mg Documented By: Admin: 12/26/22 21:09 Dose: 0.5 mg Documented By: Admin: 12/25/22 20:53 Dose: 0.5 mg Documented By: Admin: 12/24/22 20:51 Dose: 0.5 mg Documented By: Admin: 12/23/22 21:02 Dose: 0.5 mg Documented By: Admin: 12/23/22 00:30 Dose: 0.5 mg Documented By: Admin: 12/21/22 20:52 Dose: 0.5 mg Documented By: Admin: 12/20/22 20:59 Dose: 0.5 mg Documented By: Admin: 12/19/22 20:30 Dose: 0.5 mg Documented By: DUSTY Metoprolol Succinate (Metoprolol Succ 50mg Ext Rel Tab) 200 mg PO QAM [facility] Stop: 01/22/23 08:59 Last Admin: 12/28/22 08:18 Dose: 200 mg Documented By: Admin: 12/27/22 09:05 Dose: 200 mg Documented By: Admin: 12/26/22 14:52 Dose: 200 mg Documented By: Admin: 12/25/22 08:21 Dose: 200 mg Documented By: Admin: 12/24/22 13:20 Dose: Not Given Documented By: Admin: 12/23/22 07:24 Dose: 200 mg Documented By: HARSHAL Metoprolol Succinate (Metoprolol Succ 50mg Ext Rel Tab) 100 mg PO QPM ROXY Stop: 01/22/23 20:59 Last Admin: 12/27/22 20:16 Dose: 100 mg Documented By: Admin: 12/26/22 21:09 Dose: 100 mg Documented By: Admin: 12/25/22 20:53 Dose: 100 mg Documented By: Admin: 12/24/22 20:49 Dose: 100 mg Documented By: Admin: 12/23/22 21:03 Dose: 100 mg Documented By: DUSTY Metoprolol Tartrate (Metoprolol Tartrate 1 Mg/Ml Vial) 5 mg IV Q4 PRN PRN Reason: Tachycardia, HR > 110 bpm Stop: 01/21/23 19:59 Last Admin: 12/25/22 06:06 Dose: 5 mg Documented By: Admin: 12/25/22 02:03 Dose: 5 mg Documented By: Admin: 12/24/22 22:18 Dose: 5 mg Documented By: Admin: 12/23/22 12:29 Dose: 5 mg Documented By: Admin: 12/22/22 23:18 Dose: 5 mg Documented By: DUSTY Miscellaneous (Carbohydrates For Hypoglycemia ) 15 - 30 gm PO UD PRN PRN Reason: Hypoglycemia Protocol Stop: 01/18/23 18:38 Last Admin: 12/22/22 14:45 Dose: 30 gm Documented By: HARSHAL Ondansetron HCl (Ondansetron Inj 2 Mg/Ml 2 Ml Vial) 4 mg IV Q6H PRN PRN Reason: Nausea And Vomiting Stop: 01/20/23 03:38 Last Admin: 12/21/22 03:52 Dose: 4 mg Documented By: MARY Pantoprazole Sodium (Pantoprazole 40 Mg Tab) 40 mg PO QAM [facility] Stop: 01/19/23 08:59 Last Admin: 12/28/22 08:17 Dose: 40 mg Documented By: Admin: 12/27/22 09:05 Dose: 40 mg Documented By: Admin: 12/26/22 08:18 Dose: 40 mg Documented By: Admin: 12/25/22 08:22 Dose: 40 mg Documented By: Admin: 12/24/22 08:14 Dose: 40 mg Documented By: Admin: 12/23/22 07:26 Dose: 40 mg Documented By: Admin: 12/22/22 14:45 Dose: 40 mg Documented By: Admin: 12/21/22 10:01 Dose: 40 mg Documented By: Admin: 12/20/22 08:45 Dose: 40 mg Documented By: KASSIDY Polyethylene Glycol (Polyethylene (Miralax) 17 Gm Pack) 17 gm PO DAILY ROXY Stop: 01/22/23 08:59 Last Admin: 12/28/22 08:17 Dose: Not Given Documented By: Admin: 12/27/22 09:05 Dose: Not Given Documented By: Admin: 12/26/22 08:18 Dose: Not Given Documented By: Admin: 12/25/22 08:22 Dose: 17 gm Documented By: Admin: 12/24/22 08:22 Dose: Not Given Documented By: Admin: 12/23/22 12:30 Dose: 17 gm Documented By: HARSHAL Tamsulosin HCl (Tamsulosin Hcl 0.4 Mg Cap) 0.4 mg PO HS ROXY Stop: 01/18/23 20:59 Last Admin: 12/27/22 20:16 Dose: 0.4 mg Documented By: Admin: 12/26/22 21:09 Dose: 0.4 mg Documented By: Admin: 12/25/22 20:54 Dose: 0.4 mg Documented By: Admin: 12/24/22 20:48 Dose: 0.4 mg Documented By: Admin: 12/23/22 21:02 Dose: 0.4 mg Documented By: Admin: 12/22/22 20:32 Dose: 0.4 mg Documented By: Admin: 12/21/22 20:51 Dose: 0.4 mg Documented By: Admin: 12/20/22 20:35 Dose: 0.4 mg Documented By: Admin: 12/19/22 20:33 Dose: 0.4 mg Documented By: NLM Tramadol HCl (Tramadol Hcl 50 Mg Tablet) 50 mg PO BID ROXY Stop: 01/18/23 20:59 Last Admin: 12/28/22 08:17 Dose: 50 mg Documented By: Admin: 12/27/22 20:15 Dose: 50 mg Documented By: Admin: 12/27/22 09:04 Dose: 50 mg Documented By: Admin: 12/26/22 21:09 Dose: 50 mg Documented By: Admin: 12/26/22 08:12 Dose: 50 mg Documented By: Admin: 12/25/22 20:53 Dose: 50 mg Documented By: Admin: 12/25/22 09:20 Dose: Not Given Documented By: Admin: 12/24/22 20:49 Dose: 50 mg Documented By: Admin: 12/24/22 13:20 Dose: Not Given Documented By: Admin: 12/23/22 21:02 Dose: 50 mg Documented By: Admin: 12/23/22 07:26 Dose: Not Given Documented By: Admin: 12/22/22 20:34 Dose: 50 mg Documented By: Admin: 12/22/22 14:47 Dose: Not Given Documented By: Admin: 12/21/22 20:52 Dose: 50 mg Documented By: Admin: 12/21/22 10:09 Dose: 50 mg Documented By: Admin: 12/20/22 20:59 Dose: 50 mg Documented By: Admin: 12/20/22 08:55 Dose: 50 mg Documented By: Admin: 12/19/22 20:32 Dose: 50 mg Documented By: DUSTY Venlafaxine HCl (Venlafaxine Hcl Xr 75 Mg Capxr) 150 mg PO HS ROXY Stop: 01/18/23 20:59 Last Admin: 12/27/22 20:15 Dose: 150 mg Documented By: Admin: 12/26/22 21:09 Dose: 150 mg Documented By: Admin: 12/25/22 20:54 Dose: 150 mg Documented By: Admin: 12/24/22 20:48 Dose: 150 mg Documented By: Admin: 12/23/22 21:02 Dose: 150 mg Documented By: Admin: 12/22/22 20:32 Dose: 150 mg Documented By: Admin: 12/21/22 20:51 Dose: 150 mg Documented By: Admin: 12/20/22 20:35 Dose: 150 mg Documented By: Admin: 12/19/22 21:21 Dose: 150 mg Documented By: DUSTY Discontinued Medications Albuterol (Albut/Ipratrop 3mg/0.5mg Neb 3 Ml Vial) 3 ml NEB NOW STA; Protocol Stop: 12/19/22 13:59 Last Admin: 12/19/22 14:27 Dose: 3 ml Documented By: TODD Albuterol (Albut/Ipratrop 3mg/0.5mg Neb 3 Ml Vial) 3 ml NEB NOW STA; Protocol Stop: 12/19/22 15:33 Last Admin: 12/19/22 16:07 Dose: 3 ml Documented By: TODD Albuterol (Albut/Ipratrop 3mg/0.5mg Neb 3 Ml Vial) 3 ml NEB Q4R ROXY; Protocol Stop: 01/20/23 14:59 Last Admin: 12/22/22 19:17 Dose: Not Given Documented By: PERRY(2) Admin: 12/22/22 16:00 Dose: Not Given Documented By: Admin: 12/22/22 11:21 Dose: 3 ml Documented By: Admin: 12/22/22 07:12 Dose: 3 ml Documented By: Admin: 12/22/22 02:37 Dose: 3 ml Documented By: PERRY(2) Admin: 12/21/22 22:51 Dose: 3 ml Documented By: PERRY(2) Admin: 12/21/22 19:14 Dose: 3 ml Documented By: PERRY(2) Admin: 12/21/22 16:13 Dose: 3 ml Documented By: ANDREAS Albuterol (Albut/Ipratrop 3mg/0.5mg Neb 3 Ml Vial) Confirm Administered Dose 3 ml .ROUTE .STK-MED ONE Stop: 12/21/22 12:49 Last Admin: 12/21/22 12:54 Dose: 3 ml Documented By: TAYLOR Albuterol (Albut/Ipratrop 3mg/0.5mg Neb 3 Ml Vial) Confirm Administered Dose 3 ml .ROUTE .STK-MED ONE Stop: 12/21/22 22:35 Last Admin: 12/22/22 02:37 Dose: Not Given Documented By: PERRY(2) Albuterol (Albut/Ipratrop 3mg/0.5mg Neb 3 Ml Vial) 3 ml NEB QIDR ROXY; Protocol Stop: 01/22/23 06:59 Last Admin: 12/24/22 15:35 Dose: Not Given Documented By: Admin: 12/24/22 11:45 Dose: Not Given Documented By: Admin: 12/24/22 06:53 Dose: 3 ml Documented By: Admin: 12/23/22 19:53 Dose: Not Given Documented By: Admin: 12/23/22 15:41 Dose: 3 ml Documented By: Admin: 12/23/22 11:53 Dose: 3 ml Documented By: Admin: 12/23/22 07:40 Dose: 3 ml Documented By: JING Amlodipine Besylate (Amlodipine Besylate 5 Mg Tab) 5 mg PO QAM ROXY Stop: 01/19/23 08:59 Last Admin: 12/20/22 08:47 Dose: 5 mg Documented By: KASSIDY Apixaban (Apixaban 5 Mg Tablet) 5 mg PO BID ROXY Stop: 01/24/23 20:59 Last Admin: 12/28/22 08:17 Dose: 5 mg Documented By: Admin: 12/27/22 20:16 Dose: 5 mg Documented By: Admin: 12/27/22 09:05 Dose: 5 mg Documented By: Admin: 12/26/22 21:10 Dose: 5 mg Documented By: Admin: 12/26/22 08:17 Dose: 5 mg Documented By: Admin: 12/25/22 20:53 Dose: 5 mg Documented By: YADIRA Aspirin (Aspirin Chew 324 Mg) 324 mg PO NOW STA Stop: 12/19/22 15:33 Last Admin: 12/19/22 16:06 Dose: 324 mg Documented By: TODD Cefazolin Sodium (Cefazolin 3000mg/72.5 Ml Bag) Confirm Administered Dose 3,000 mg IV .STK-MED ONE Stop: 12/22/22 07:46 Last Admin: 12/22/22 10:28 Dose: Not Given Documented By: HARSHAL Epoetin Sarbjit (Epoetin Sarbjit 10,000 Units/Ml Vial) 10,000 units IV ONE ONE Stop: 12/26/22 09:25 Last Admin: 12/26/22 11:40 Dose: 10,000 units Documented By: ROCCO Furosemide (Furosemide 40 Mg/4 Ml Vial) 40 mg IV ONE ONE Stop: 12/19/22 15:33 Last Admin: 12/19/22 16:07 Dose: 40 mg Documented By: TODD Furosemide (Furosemide 40 Mg/4 Ml Vial) 40 mg IV BID17 ROXY Stop: 01/19/23 08:59 Last Admin: 12/20/22 08:47 Dose: 40 mg Documented By: KASSIDY Furosemide (Furosemide 40 Mg/4 Ml Vial) 40 mg IV ONE ONE Stop: 12/19/22 19:59 Last Admin: 12/19/22 20:30 Dose: 40 mg Documented By: DUSTY Furosemide (Furosemide 40 Mg/4 Ml Vial) 80 mg IV BID17 [facility] Stop: 01/19/23 16:59 Last Admin: 12/24/22 17:18 Dose: 80 mg Documented By: Admin: 12/24/22 13:20 Dose: Not Given Documented By: Admin: 12/23/22 17:36 Dose: 80 mg Documented By: Admin: 12/23/22 07:25 Dose: 80 mg Documented By: Admin: 12/22/22 17:39 Dose: 80 mg Documented By: Admin: 12/22/22 14:48 Dose: Not Given Documented By: Admin: 12/21/22 17:24 Dose: 80 mg Documented By: Admin: 12/21/22 10:00 Dose: 80 mg Documented By: Admin: 12/20/22 17:05 Dose: 80 mg Documented By: KASSIDY Furosemide (Furosemide 40 Mg/4 Ml Vial) 80 mg IV ONE ONE Stop: 12/20/22 11:33 Last Admin: 12/20/22 12:19 Dose: 80 mg Documented By: KASSIDY Heparin Sodium (Porcine) (Heparin Sod 5,000 Unit/0.5 Ml Vial) 7,500 units SQ Q8 [facility] Stop: 12/25/22 21:59 Last Admin: 12/25/22 06:06 Dose: 7,500 units Documented By: Admin: 12/24/22 20:48 Dose: 7,500 units Documented By: Admin: 12/24/22 18:12 Dose: Not Given Documented By: Admin: 12/24/22 06:26 Dose: 7,500 units Documented By: Admin: 12/23/22 21:03 Dose: 7,500 units Documented By: Admin: 12/23/22 14:52 Dose: 7,500 units Documented By: Admin: 12/23/22 06:34 Dose: 7,500 units Documented By: Admin: 12/22/22 20:32 Dose: 7,500 units Documented By: Admin: 12/22/22 14:44 Dose: 7,500 units Documented By: Admin: 12/22/22 06:27 Dose: Not Given Documented By: Admin: 12/21/22 20:51 Dose: 7,500 units Documented By: Admin: 12/21/22 15:24 Dose: 7,500 units Documented By: Admin: 12/21/22 05:31 Dose: 7,500 units Documented By: Admin: 12/20/22 20:36 Dose: 7,500 units Documented By: Admin: 12/20/22 13:46 Dose: 7,500 units Documented By: Admin: 12/20/22 06:33 Dose: 7,500 units Documented By: Admin: 12/19/22 21:20 Dose: 7,500 units Documented By: DUSTY Heparin Sodium (Porcine) (Heparin Sod (Porcine) 5,000 Units/Ml Vial) Confirm Administered Dose 20,000 units .ROUTE .[facility] Stop: 12/22/22 07:50 Last Admin: 12/22/22 08:29 Dose: 16,000 units Documented By: AIDEN Heparin Sodium (Porcine) (Heparin Sod (Porcine) 1000 Unit/Ml) 1,000 units IV TODAY@0800 [facility] Stop: 12/23/22 23:59 Last Admin: 12/23/22 10:54 Dose: Not Given Documented By: SEBLE Heparin Sodium (Porcine) (Heparin Sod (Porcine) 1000 Unit/Ml) 1,000 units IV ONE ONE Stop: 12/24/22 07:33 Last Admin: 12/24/22 10:16 Dose: Not Given Documented By: ROCCO Heparin Sodium (Porcine) (Heparin Sod (Porcine) 1000 Unit/Ml) 2,000 units IV ONE ONE Stop: 12/26/22 09:25 Last Admin: 12/26/22 11:39 Dose: Not Given Documented By: ROCCO Calcium Gluconate () 1,000 mg in 60 mls @ 240 mls/hr IV NOW STA Stop: 12/19/22 15:46 Last Infusion: 12/19/22 16:30 Dose: 0 mls/hr Documented By: Admin: 12/19/22 16:07 Dose: 240 mls/hr Documented By: TODD Cefazolin Sodium (Ancef 3000mg) 72.5 mls @ 130 mls/hr IV PREOP ONE; Protocol Stop: 12/21/22 11:26 Last Infusion: 12/22/22 10:40 Dose: 0 mls/hr Documented By: Admin: 12/22/22 08:09 Dose: 130 mls/hr Documented By: ISADORA Digoxin 125 mcg/ Syringe 10 mls @ 2 mls/min IV NOW STA Stop: 12/23/22 16:45 Last Admin: 12/23/22 17:36 Dose: 2 mls/min Documented By: HARSHAL Iron Sucrose 100 mg/ Syringe 5 mls @ 1 mls/min IV TODAY ONE Stop: 12/24/22 10:34 Last Admin: 12/24/22 11:10 Dose: 1 mls/min Documented By: ROCCO Lidocaine HCl (Lidocaine 1% Local 20 Ml Vial) Confirm Administered Dose 1 ml .ROUTE .STK-MED ONE Stop: 12/22/22 07:49 Last Admin: 12/22/22 08:29 Dose: 20 ml Documented By: AIDEN Methylprednisolone (Methylprednisolone 125 Mg/2 Ml Vial) 125 mg IV NOW STA Stop: 12/19/22 13:59 Last Admin: 12/19/22 14:27 Dose: 125 mg Documented By: TODD Metoprolol Succinate (Metoprolol Succ 50mg Ext Rel Tab) [facility] [place]: 01/19/23 08:59 Last Admin: 12/22/22 14:43 Dose: 150 mg Documented By: Admin: 12/21/22 10:00 Dose: Not Given Documented By: Admin: 12/20/22 08:47 Dose: 150 mg Documented By: KASSIDY Miscellaneous (No Heparin In Dialysis) 1 each N/A ONE ONE Stop: 12/22/22 08:55 Last Admin: 12/22/22 14:47 Dose: 1 each Documented By: HARSHAL Sodium Bicarbonate (Sodium Bicarbonate 650 Mg Tab) 650 mg PO BID ROXY Stop: 01/19/23 11:29 Last Admin: 12/22/22 14:31 Dose: Not Given Documented By: Admin: 12/21/22 20:52 Dose: 650 mg Documented By: Admin: 12/21/22 10:00 Dose: 650 mg Documented By: Admin: 12/20/22 20:35 Dose: 650 mg Documented By: Admin: 12/20/22 12:19 Dose: 650 mg Documented By: KASSIDY Sodium Zirconium Cyclosilicate (Sodium Zirconium Cyclosilicate 10 Gm Packet) 10 gm PO DAILY@1130 ROXY Stop: 01/19/23 11:29 Last Admin: 12/22/22 14:40 Dose: 10 gm Documented By: Admin: 12/21/22 15:24 Dose: 10 gm Documented By: Admin: 12/20/22 12:19 Dose: 10 gm Documented By: KASSIDY PG Care Time/CCT Total # of Minutes Spent Total Time Spent with Patient: Total time spent is greater than 50% in coordination of care (as documented) at patient's floor/unit and/or counseling patient:25 Coding [place] [address] SUB INP/OBS CARE 3/50MIN Patient Type Established History Detailed Exam Detailed Medical Decision Making High Complexity Diagnoses Atrial flutter with rapid ventricular response I48.92 Systolic heart failure I50.20 Cardiomyopathy I42.9 Acute respiratory failure with hypoxia J96.01 CAD (coronary artery disease) I25.10 ESRD (end stage renal disease) N18.6 Time Spent (min) 47
--- NOTE | 2022-12-28 16:20 | Hospitalist Progress Note ---
Date of Service December 28, 2022 Assessment & Plan (1) Acute on chronic HFrEF (heart failure with reduced ejection fraction): Plan: ECHO showed EF 20-25% with global hypokinesis, previous ECHO in 2021 had showed EF 50-55%. Currently receiving hemodialysis for fluid management. Monitor intake and output. Low-sodium diet. Appreciate cardiology consultation and recommendations (2) Cardiomyopathy: Plan: Known ischemic cardiomyopathy. Continue current medical management. Treat underlying CHF. Control heart rate. Telemetry (3) Acute respiratory failure with hypoxia: Plan: Supplemental oxygen per nasal cannula to maintain saturation greater than 90%. Treat underlying CHF. Wean off as tolerated . Serial chest x-ray (4) Atrial flutter with rapid ventricular response: Plan: Will need renally dosed Eliquis, However, defer for now due to small amounts of bleeding from his permacath site (5) Anemia: Plan: Probably a combination of acute blood loss from permacath palcement and CKD and also Iron def Will start Iron tabs 325mg BID Transfuse if Hb<7 (6) COVID-19: Plan: Tested positive. No current evidence of viral pneumonia. Supportive care. We will follow not thought to be contributing to his syptoms (7) TANYA (acute kidney injury): Plan: Now on HD. Appreciate Nephrology input. Serial labs (8) Hyperkalemia: Plan: On HD. Serial labs (9) Hyperlipidemia: Plan: Continue atorvastatin 40 mg p.o. daily (10) Type II diabetes mellitus: Plan: HbA1c 7.1 in August. Lantus currently on hold due to poor oral intake. Sliding scale coverage as needed. (11) CAD (coronary artery disease): Plan: S/p CABG x2 vessels ([place]ST[place] to LAD, SVG to OM3) in 2010. Stable with current medical management including aspirin, metoprolol, lisinopril, atorvastatin (12) CKD (chronic kidney disease) stage 4, GFR 15-29 ml/min: Plan: Now on HD. Monitor intake and output. Serial labs Plan Disposition: To be determined Admission and Anticipated Discharge Date Admission Date: December 19, 2022 Subjective Alert and oriented. No acute distress. He remains on a diltiazem drip along with Eliquis. MCKAYLA cardioversion attempt is pending. We will repeat portable chest x-ray today, December 28. Known ejection fraction of 20%. Tunneled dialysis catheter was placed December 22. Review of Systems Review of Systems: Constitutional-no fever or chills ENT-no blurred vision, no double vision, no epistaxis, no sore throat Respiratory-no cough, no wheezing. Dyspnea on exertion Cardiac-no palpitations, no chest pain, no syncope GI-no nausea, vomiting, diarrhea, melena, hematochezia -no urinary retention, no urinary incontinence, no dysuria, no hematuria Musculoskeletal-no joint pain, no muscle tenderness Skin-no bruising, no rashes, no pruritus Neuro-no isolated weakness, no paresthesia, no weakness Psych-no depression, no anxiety Physical Exam Physical Exam: General-alert and oriented x3, no fevers, no chills HEENT-head atraumatic and normocephalic, pupils equal and reactive to light, extraocular muscles intact Neck-no lymphadenopathy or thyromegaly, trachea midline Chest-diminished breath sounds bilaterally. Bibasilar inspiratory rales. No wheezing Cardiac-irregular tachycardic rhythm. Normal S1 and S2 Abdomen-normal bowel sounds, nontender, no hepatosplenomegaly Extremities-bilateral lower extremity edema. Chronic venous stasis changes Neuro-cranial nerves II through XII intact, motor and sensory function within normal limits, strength symmetrical , no focal deficits Psych-normal affect, normal mood Results & Data Results & Data ([facility]) Vital Signs (Past 12 Hours) Vital Signs Temp Pulse Pulse Pulse Resp BP BP 12/28/22 13:42 12/28/22 11:48 36.7 C 81 20 113/64 12/28/22 07:51 36.7 C 101 H 20 125/82 12/28/22 06:35 105 H 20 129/91 12/28/22 04:37 36.5 C 86 20 99/59 L Pulse Ox O2 Del Method O2 Flow Rate 12/28/22 13:42 Nasal Cannula 3 12/28/22 11:48 97 Nasal Cannula 3 12/28/22 07:51 95 Room Air 12/28/22 06:35 96 Nasal Cannula 3 12/28/22 04:37 93 Nasal Cannula 3 Laboratory Results 12/28/22 07:26 12/28/22 07:26 PG Care Time/CCT Total # of Minutes Spent Total Time Spent with Patient: Total time spent is greater than 50% in coordination of care (as documented) at patient's floor/unit and/or counseling patient: Coding Level of Care Code 84143 SUB INP/OBS CARE 350MIN Diagnoses Acute on chronic HFrEF (heart failure with reduced ejection fraction) I50.23 Cardiomyopathy I42.9 Acute respiratory failure with hypoxia J96.01 Atrial flutter with rapid ventricular response I48.92 Anemia D64.9 COVID-19 U07.1 TANYA (acute kidney injury) N17.9 Hyperkalemia E87.5 Hyperlipidemia E78.5 Type II diabetes mellitus E11.9 CAD (coronary artery disease) I25.10 CKD (chronic kidney disease) stage 4, GFR 15-29 ml/min N18.4
--- NOTE | 2022-12-28 17:03 | XRay Report ---
XR chest 1V portable CLINICAL HISTORY: CHF TECHNIQUE: Single frontal radiograph of the chest was obtained. Comparison: Comparison is made to chest radiograph 12/22/2022 FINDINGS: Dual lumen catheter is in the mid SVC. Median sternotomy fixation hardware noted. Cardiomegaly is not ed. Prominence and cephalization of the vasculature is seen. No evidence of pleural effusion or pneum othorax. IMPRESSION: Cardiomegaly and mild pulmonary edema. ACT 112: Negative or not required by law. Electronically signed by: Dean Alatorre M.D. 12/28/2022 5:01 PM
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
[2022-12-28] MEDS: LORazepam 0.5 MG TAB PO PRN (21:01)
[2022-12-28] MEDS: allopurinoL 300 MG TAB PO SCH (21:02)
[2022-12-28] MEDS: ATORVASTATIN 40 MG TAB PO SCH (21:03)
[2022-12-28] MEDS: APIXABAN 2.5 MG TAB PO SCH (21:04)
[2022-12-28] MEDS: TAMSULOSIN HCL 0.4 MG CAP PO SCH (21:04)
[2022-12-28] MEDS: VENLAFAXINE HCL XR 75 MG CAPXR PO SCH (21:05)
[2022-12-28] MEDS: guaiFENesin/DEXTROM SYRUP 200MG/20MG 10ML UDC PO PRN (21:08)
[2022-12-29] MEDS: ALBUTEROL 0.083% NEBU SOLN 3 ML VIAL NEB PRN ×2 (03:43→09:57)
[2022-12-29] MEDS ORDERED: SODIUM CHLORIDE 0.9% 1000ML 1,000 ML IV PRN ×2 (07:00)
[2022-12-29] MEDS ORDERED: HEPARIN SOD (PORCINE) 1000 UNIT/ML IV ONE (07:00)
[2022-12-29] MEDS ORDERED: EPOETIN ALFA 10,000 UNITS/ML VIAL IV ONE (07:00)
[2022-12-29] MEDS ORDERED: HEPARIN SOD (PORCINE) 1000 UNIT/ML IV SCH (08:00)
[2022-12-29 08:31] LABS: Basophils # (auto) 0.01 K/uL (0-0.2); Basophils % (auto) 0.2 %; Eosinophils # (auto) 0.02 K/uL (0-0.50); Eosinophils % (auto) 0.3 %; Hematocrit (blood only) 27.4 % (42.0-52.0); Hemoglobin 8.7 g/dl (14.0-18.0); Immature Granulocytes # (auto) 0.11 K/uL (0.01-0.20); Immature Granulocytes % (auto) 1.7 %; Lymphocytes # (auto) 0.62 K/uL (1.2-3.4); Lymphocytes % (auto) 9.6 %; Mean Corpuscular Hemoglobin 30.2 pg (25.0-34.0); Mean Corpuscular Hgb Conc 31.8 g/dL (32.0-36.0); Mean Corpuscular Volume 95.1 fL (80.0-100.0); Mean Platelet Volume 12.8 fL (9.4-12.4); Monocytes # (auto) 0.37 K/uL (0.11-0.59); Monocytes % (auto) 5.7 %; Neutrophils # (auto) 5.36 K/uL (1.40-6.50); Neutrophils % (auto) 82.5 %; Platelet Count 119 K/uL (130-400); RDW Coefficient of Variation 16.8 % (11.5-14.5); RDW Standard Deviation 58.8 fL (36.4-46.3); Red Blood Count 2.88 M/uL (4.70-6.10); White Blood Count 6.49 K/ul (4.8-10.8)
[2022-12-29 08:57] LABS: BUN Creatinine Ratio 6.2 (10-20); Calcium 8.6 mg/dl (8.5-10.1); Creatinine Clr Calc Pharmacy 14.1 ml/min; Est GFR (African American) 10.1 ml/min; Est GFR (Non-African American) 8.7 ml/min; Potassium 4.7 mmol/L (3.5-5.1)
[2022-12-29] MEDS: PANTOprazole 40 MG TAB PO SCH (09:24)
[2022-12-29] MEDS: APIXABAN 2.5 MG TAB PO SCH ×2 (09:24→20:42)
[2022-12-29] MEDS: FERROUS SULFATE 325 MG TAB PO SCH ×2 (09:24→17:00)
[2022-12-29] MEDS: buPROPion SR 100 MG TABCR PO SCH (09:24)
[2022-12-29] MEDS: INSULIN ASPART PER UNIT SC SCH ×4 (09:29→20:39)
[2022-12-29] MEDS: POLYETHYLENE (MIRALAX) 17 GM PACK PO SCH (09:30)
[2022-12-29] MEDS: METOPROLOL SUCC 50MG EXT REL TAB PO SCH ×2 (10:38→20:38)
[2022-12-29] MEDS: traMADol HCL 50 MG TABLET PO SCH (10:39)
[2022-12-29] MEDS: METOPROLOL TARTRATE 1 MG/ML VIAL IV PRN ×2 (10:42→17:00)
--- NOTE | 2022-12-29 10:47 | Nephrology Progress Note ---
Date of Service December 29, 2022 Assessment & Plan (1) ESRD (end stage renal disease): Plan: now ESRD after TANYA on CKD 4; now on dialysis which I expect to be chronic ESRD d/t advanced vascular disease now w/ ischemic ATN in setting of COVID 19 infection and atrophied R kidney. Creatinine peaked at 5.6 from a baseline of mid threes October 2022. Patient also had metabolic acidosis and hyperkalemia with worsened heart failure, respiratory failure, and volume overload > first HD 12/22 after TDC placement same day -Monitor renal function with daily BMP -Avoid nephrotoxins such as contrast and NSAIDs. -for now continue lasix but look to wean as tolerated > Patient tolerating dialysis well today. His plan for 4 hours and -4 L >plan correction is HHD at [facility] and near term in-center HD at [facility] (2) Systolic heart failure: Plan: cardiology following >> rate control a challenge; HR in 115 range > [employer] planning cardioversion tomorrow Admission and Anticipated Discharge Date Admission Date: December 19, 2022 Subjective Seen in follow-up for ESRD. Patient reports to be feeling fine but is visibly dyspneic and using accessory muscles for respiration. He just got albuterol nebulizer. Chest x-ray yesterday showed cardiomegaly and pulmonary vascular congestion. patient was seen and examined while on dialysis. Review of Systems Review of Systems: All other systems were reviewed and negative except as noted in HPI Physical Exam Physical Exam: General exam: In respiratory distress HEENT: Pupils are equal and reactive to light Neck: No JVD, neck is supple trachea is midline Respiratory system: Wheezing bilaterally. Gastrointestinal: Abdomen is soft, non distended, non tender, bowel sounds are present CVS: Regular rate and rhythm. No murmurs, rubs or gallops Musculoskeletal: No joint or muscle tenderness Extremities: Non tender, no edema, peripheral pulses are present Neuro: Oriented, no tremors, no focal neurological deficits Skin: No rashes Results & Data ([facility]) Vital Signs (Past 12 Hours) Vital Signs Temp Pulse Pulse Pulse Pulse Pulse Resp 12/29/22 10:42 122 H 12/29/22 10:39 122 H 12/29/22 10:30 102 H 12/29/22 10:00 120 H 12/29/22 09:57 118 H 22 12/29/22 09:30 119 H 03/07/23 09:00 78 12/29/22 08:53 79 12/29/22 08:45 36.5 C 60 12/29/22 03:45 69 20 12/29/22 03:29 36.5 C 59 L 18 12/28/22 23:18 36.5 C 57 L 18 BP BP BP Pulse Ox O2 Del Method O2 Flow Rate 12/29/22 10:42 12/29/22 10:39 12/29/22 10:30 128/91 12/29/22 10:00 142/100 H 12/29/22 09:57 94 Nasal Cannula 3 12/29/22 09:30 128/68 12/29/22 09:00 132/96 12/29/22 08:53 139/111 H 12/29/22 08:45 12/29/22 03:45 94 Nasal Cannula 3 12/29/22 03:29 123/80 93 Nasal Cannula 3 12/28/22 23:18 94/57 L 88 L Room Air Laboratory Results 12/29/22 08:06 12/29/22 08:06 WBC 6.49 RBC 2.88 L MCV 95.1 MCH 30.2 MCHC 31.8 L RDW Std Deviation 58.8 H RDW Coeff of Masoud 16.8 H Plt Count 119 L MPV 12.8 H
[2022-12-29] MEDS ORDERED: METOPROLOL TARTRATE 1 MG/ML VIAL IV STA (11:45)
--- NOTE | 2022-12-29 15:38 | Hospitalist Progress Note ---
Date of Service December 29, 2022 Assessment & Plan (1) Acute on chronic HFrEF (heart failure with reduced ejection fraction): Plan: ECHO showed EF 20-25% with global hypokinesis, previous ECHO in 2021 had showed EF 50-55%. Currently receiving hemodialysis for fluid management. Monitor intake and output. Low-sodium diet. Appreciate cardiology consultation and recommendations (2) Cardiomyopathy: Plan: Known ischemic cardiomyopathy. Continue current medical management. Treat underlying CHF. Control heart rate. Telemetry (3) Acute respiratory failure with hypoxia: Plan: Supplemental oxygen per nasal cannula to maintain saturation greater than 90%. Treat underlying CHF. Wean off as tolerated . Serial chest x-ray (4) Atrial flutter with rapid ventricular response: Plan: He remains on a diltiazem drip along with Eliquis. He will undergo MCKAYLA e lectrical cardioversion tomorrow, December 30. Appreciate cardiology consultation and recommendations. (5) Anemia: Plan: Probably a combination of acute blood loss from permacath palcement, ESRD, and also Iron def. continue oral iron supplements. Serial labs. Transfuse as needed (6) COVID-19: Plan: Tested positive. No current evidence of viral pneumonia. Supportive care. (7) TANYA (acute kidney injury): Plan: Acute on chronic kidney disease stage V. Now end-stage renal disease on HD. Appreciate Nephrology input. Serial labs (8) Hyperkalemia: Plan: Corrected. Serial labs (9) Hyperlipidemia: Plan: Continue atorvastatin 40 mg p.o. daily (10) Type II diabetes mellitus: Plan: HbA1c 7.1 in August. Lantus currently on hold due to poor oral intake. Sliding scale coverage as needed. (11) CAD (coronary artery disease): Plan: S/p CABG x2 vessels (BOSTON to LAD, SVG to OM3) in 2010. Stable with current medical management including aspirin, metoprolol, lisinopril, atorvastatin (12) CKD (chronic kidney disease) stage 4, GFR 15-29 ml/min: Plan: Now end-stage renal disease on HD. Monitor intake and output. Serial labs Plan Disposition: To be determined Admission and Anticipated Discharge Date Admission Date: December 19, 2022 Subjective Hypertensive and tachycardic this morning with response to intravenous metoprolol. When I saw him after dialysis he was doing much better. A considerable amount of fluid was taken off. Will obtain repeat portable chest x-ray tomorrow, December 30. Portable chest x-ray on December 28 revealed cardiomegaly and pulmonary edema. Oxygen saturation 94% on 3 L. He does not usually need home oxygen. He will undergo MCKAYLA electrical cardioversion tomorrow, December 30, for the atrial flutter. Review of Systems Review of Systems: Constitutional-no fever or chills ENT-no blurred vision, no double vision, no epistaxis, no sore throat Respiratory-no cough, no wheezing. Dyspnea on exertion and he had some dyspnea at rest this morning Cardiac-no palpitations, no chest pain, no syncope GI-no nausea, vomiting, diarrhea, melena, hematochezia -no urinary retention, no urinary incontinence, no dysuria, no hematuria Musculoskeletal-no joint pain, no muscle tenderness Skin-no bruising, no rashes, no pruritus Neuro-no isolated weakness, no paresthesia, no weakness Psych-no depression, no anxiety Physical Exam Physical Exam: General-alert and oriented x3, no fevers, no chills HEENT-head atraumatic and normocephalic, pupils equal and reactive to light, extraocular muscles intact Neck-no lymphadenopathy or thyromegaly, trachea midline Chest-diminished breath sounds bilaterally. Bibasilar inspiratory rales. No wheezing Cardiac-irregular tachycardic rhythm. Normal S1 and S2 Abdomen-normal bowel sounds, nontender, no hepatosplenomegaly Extremities-bilateral lower extremity edema. Chronic venous stasis changes Neuro-cranial nerves II through XII intact, motor and sensory function within normal limits, strength symmetrical , no focal deficits Psych-normal affect, normal mood Results & Data Results & Data ([facility]) Vital Signs (Past 12 Hours) Vital Signs Temp Pulse Pulse Pulse Pulse Pulse Resp 12/29/22 15:16 97 H 12/29/22 07:15 72 12/29/22 15:11 12/29/22 14:56 36.8 C 105 H 18 12/29/22 12:57 36.4 C L 122 H 12/29/22 12:30 93 H 12/29/22 12:00 118 H 12/29/22 11:59 126 H 12/29/22 11:45 125 H 12/29/22 11:30 61 12/29/22 10:42 122 H 12/29/22 10:39 122 H 12/29/22 11:00 76 12/29/22 10:30 102 H 12/29/22 10:00 120 H 12/29/22 09:57 118 H 22 12/29/22 09:30 119 H 12/29/22 09:00 78 12/29/22 08:53 79 12/29/22 08:45 36.5 C 60 12/29/22 03:45 69 20 BP BP Pulse Ox O2 Del Method O2 Flow Rate 12/29/22 15:16 12/29/22 07:15 12/29/22 15:11 Nasal Cannula 3 12/29/22 14:56 133/87 96 Nasal Cannula 3 12/29/22 12:57 137/88 12/29/22 12:30 119/72 12/29/22 12:00 109/76 12/29/22 11:59 12/29/22 11:45 12/29/22 11:30 153/73 H 12/29/22 10:42 12/29/22 10:39 12/29/22 11:00 139/90 12/29/22 10:30 128/91 12/29/22 10:00 142/100 H 12/29/22 09:57 94 Nasal Cannula 3 12/29/22 09:30 128/68 12/29/22 09:00 132/96 12/29/22 08:53 139/111 H 12/29/22 08:45 12/29/22 03:45 94 Nasal Cannula 3 Laboratory Results 12/29/22 08:06 12/29/22 08:06 PG Care Time/CCT Total # of Minutes Spent Total Time Spent with Patient: Total time spent is greater than 50% in coordination of care (as documented) at patient's floor/unit and/or counseling patient: Coding Level of Care Code 55174 SUB INP/OBS CARE 3/50MIN Diagnoses Acute on chronic HFrEF (heart failure with reduced ejection fraction) I50.23 Cardiomyopathy I42.9 Acute respiratory failure with hypoxia J96.01 Atrial flutter with rapid ventricular response I48.92 Anemia D64.9 COVID-19 U07.1 TANYA (acute kidney injury) N17.9 Hyperkalemia E87.5 Hyperlipidemia E78.5 Type II diabetes mellitus E11.9 CAD (coronary artery disease) I25.10 CKD (chronic kidney disease) stage 4, GFR 15-29 ml/min N18.4
--- NOTE | 2022-12-29 17:54 | Cardiology Progress Note ---
Date of Service December 29, 2022 Assessment & Plan (1) Atrial flutter with rapid ventricular response: (2) Systolic heart failure: (3) Cardiomyopathy: (4) Acute respiratory failure with hypoxia: (5) CAD (coronary artery disease): (6) ESRD (end stage renal disease): Plan Complex patient with ischemic/tachycardic cardiomyopathy and HFrEF who is now undergoing dialysis for volume unloading. Rhythm remains atrial flutter with variable controlled ventricular rate. Still with periods of tachycardia despite high-dose beta-kris (metoprolol succinate 200 mg twice daily). Hoping to avoid further diltiazem with reduced systolic function and variable BP. Digoxin generally contraindicated with end-stage renal disease (increased mortality). At this point, I am concerned that cardioversion would be unlikely to hold (would quickly revert back to atrial flutter/fib) given his chronic volume overload, bronchospasm, and generally hyperadrenergic state. Will initiate amiodarone both to assist with current rate control as well as for future rhythm control (to prevent recurrent atrial dysrhythmias after cardioversion). Given current level of beta-blockade, will introduce amiodarone gradually 200 mg twice daily rather than high loading dose which could precipitate bradycardia. Would like to allow a day for amiodarone to accumulate, hopefully he could have further hemodialysis tomorrow since he still appears hypervolemic. MCKAYLA/cardioversion at this point plan for 12/31/2022 ( morning) after amiodarone semi-loading. Admission and Anticipated Discharge Date Admission Date: December 19, 2022 Subjective Still struggling with respiratory status, intermittent dyspnea with evidence of bronchospasm. Has been gradually volume unloaded with sequential dialysis, weight postdialysis is down 10 pounds from just 3 days ago. No chest pain or subjective palpitations. Telemetry shows atrial fibrillation with generally controlled rate, but still with periods of rapid ventricular response. Physical Exam Physical Exam: No distress. Weight dropping as noted. BP normotensive. Pulse 90-120 bpm range and irregular. Skin: no ecchymoses or generalized lesions. HEENT: unremarkable. Neck: Jugular venous pulse appears mildly elevated, no carotid bruits. Lungs: Mildly diminished breath sounds with bilateral expiratory wheezing. No accessory muscle use, intercostal retraction, or abdominal paradox. Cardiac: Irregular rhythm, no obvious murmur. Abdomen: benign. Extremities: No pretibial edema, pulses intact. Neurologic: normal affect and conversation, nonfocal. Results & Data ([facility]) Laboratory Results Sodium 133, potassium 4.7, BUN 39, creatinine 6.26 (predialysis). PG Care Time/CCT Total # of Minutes Spent Total Time Spent with Patient: Total time spent is greater than 50% in coordination of care (as documented) at patient's floor/unit and/or counseling patient: Coding Level of Care Code 88892 SUB INP/OBS CARE 3/50MIN Diagnoses Atrial flutter with rapid ventricular response I48.92 Systolic heart failure I50.20 Cardiomyopathy I42.9 Acute respiratory failure with hypoxia J96.01 CAD (coronary artery disease) I25.10 ESRD (end stage renal disease) N18.6
[2022-12-29] MEDS ORDERED: AMIODARONE 200 MG TAB PO ONE (17:57)
[2022-12-29] MEDS: TAMSULOSIN HCL 0.4 MG CAP PO SCH (20:42)
[2022-12-29] MEDS: allopurinoL 300 MG TAB PO SCH (20:42)
[2022-12-29] MEDS: ATORVASTATIN 40 MG TAB PO SCH (20:43)
[2022-12-29] MEDS: VENLAFAXINE HCL XR 75 MG CAPXR PO SCH (20:43)
[2022-12-29] MEDS: LORazepam 0.5 MG TAB PO PRN (21:29)
[2022-12-30] MEDS: traMADol HCL 50 MG TABLET PO SCH ×3 (03:00→20:19)
[2022-12-30 07:41] LABS: Basophils # (auto) 0.01 K/uL (0-0.2); Basophils % (auto) 0.2 %; Eosinophils # (auto) 0.08 K/uL (0-0.50); Eosinophils % (auto) 1.3 %; Hematocrit (blood only) 29.4 % (42.0-52.0); Hemoglobin 9.1 g/dl (14.0-18.0); Immature Granulocytes # (auto) 0.08 K/uL (0.01-0.20); Immature Granulocytes % (auto) 1.3 %; Lymphocytes # (auto) 0.49 K/uL (1.2-3.4); Lymphocytes % (auto) 7.8 %; Mean Corpuscular Hemoglobin 29.7 pg (25.0-34.0); Mean Corpuscular Volume 96.1 fL (80.0-100.0); Mean Platelet Volume 12.8 fL (9.4-12.4); Monocytes # (auto) 0.33 K/uL (0.11-0.59); Monocytes % (auto) 5.3 %; Neutrophils # (auto) 5.26 K/uL (1.40-6.50); Neutrophils % (auto) 84.1 %; Nucleated RBC # (auto) 0.02 K/uL (0-0.12); Nucleated RBC % (auto) 0.3 %; Platelet Count 146 K/uL (130-400); RDW Coefficient of Variation 16.8 % (11.5-14.5); RDW Standard Deviation 58.7 fL (36.4-46.3); Red Blood Count 3.06 M/uL (4.70-6.10); White Blood Count 6.25 K/ul (4.8-10.8)
[2022-12-30 07:56] LABS: BUN Creatinine Ratio 4.8 (10-20); Calcium 8.6 mg/dl (8.5-10.1); Creatinine Clr Calc Pharmacy 19.9 ml/min; Est GFR (African American) 15.5 ml/min; Est GFR (Non-African American) 13.4 ml/min
[2022-12-30] MEDS: buPROPion SR 100 MG TABCR PO SCH (08:16)
[2022-12-30] MEDS: APIXABAN 2.5 MG TAB PO SCH ×2 (08:16→20:19)
[2022-12-30] MEDS: FERROUS SULFATE 325 MG TAB PO SCH ×2 (08:16→17:56)
[2022-12-30] MEDS: METOPROLOL SUCC 50MG EXT REL TAB PO SCH ×2 (08:17→20:20)
[2022-12-30] MEDS: POLYETHYLENE (MIRALAX) 17 GM PACK PO SCH (08:17)
[2022-12-30] MEDS: PANTOprazole 40 MG TAB PO SCH (08:17)
--- NOTE | 2022-12-30 09:21 | Cardiology Progress Note ---
Date of Service December 30, 2022 Assessment & Plan (1) Atrial flutter with rapid ventricular response: (2) Systolic heart failure: (3) Cardiomyopathy: (4) Acute respiratory failure with hypoxia: (5) CAD (coronary artery disease): (6) ESRD (end stage renal disease): Plan Mr. Holman is a 62-year-old male with a history of CAD s/p CABG x 2 Vessels April 2011, Hypertension, Dyslipidemia, Carotid Artery Stenoses, Type 2 Diabetes Mellitus, PAD, GERD, CKD with TANYA s/p Tunneled Dialysis Catheter 12/22/22 (starting dialysis), Obesity, Former Smoker, Gout, GERD, Nephrolithiasis, and Generalized Osteoarthritiswho presented to [facility] ER [facility] 12[facility]22 with Acute Systolic CHF, Acute Hypoxic Respiratory Failure, newly diagnosed A-Flutter with RVR, and a newly diagnosed Cardiomyopathy (most likely Tachycardia Induced). Patient remains in atrial flutter with improved heart rates overall -- but still has variable degrees of tachycardia. He appears to be approaching a euvolemic state, his body weight is down to 104.2 kg from his peak weight of 111.8 kg during this hospitalization -- but his CXR today shows cardiomegaly and persistent mild pulmonary edema. Patient has not had any angina pectoris or burning chest pain, nor has he had any symptoms suggestive of stroke or mini stroke. We discussed the ongoing management of his Cardiomyopathy. I suspect that his Cardiomyopathy is tachycardia induced due Rapid Atrial Flutter -- so controlling his heart rate/converting to sinus rhythm is imperative. His [id number] is 3 -- so long-term anticoagulation is indicated. Annual stroke risk is 3.2% based on this score. Recommend the followin. Amiodarone 200 mg b.i.d. was initiated yesterday. 2. Continue IV Lopressor 5 mg q 4 hours for HR > 110 bpm. 3. Before discharge, stop Lisinopril x 36 hours and begin Entresto 24-26 mg every 12 hours. 4. Continue to manage volume with dialysis. 5. Continue Metoprolol Succinate ER 200 mg b.i.d.. 6. Continue Atorvastatin 40 mg daily. 7. Strict 2 g low-sodium diet, fluid restriction. 8. Monitor daily body weights and I&O's. 9. Diltiazem Drip has been discontinued. 10. Plan is to proceed with MCKAYLA/Cardioversion on 12/31/22 if still symptomatic and he is still in rapid A-Flutter. Ultimately we are planning an A-Flutter Ablation. Patient verbalized understanding of our discussions today. He agrees with this plan. We will continue to follow while hospitalized and following discharge. Admission and Anticipated Discharge Date Admission Date: December 19, 2022 Subjective Mr. Holman remains in A-Flutter with variable degrees of tachycardia -- although overall his heart rates appear to be better controlled. He does admit to intermittent palpitations secondary to his atrial flutter. He also notes mild BARAJAS and intermittent SOB at rest with associated wheezing but his breathing has certainly improved since being admitted. He denies any angina pectoris or burning chest pain. He denies any neurologic symptoms suggestive of stroke or mini-stroke. Patient is tolerating his current medical regimen. He has not had any bleeding complications related to Eliquis. He is also tolerating dialysis. Review of Systems Review of Systems: 10 point ROS completed and is negative with the exception of what is mentioned in the HPI. Physical Exam Physical Exam: General: Patient is lying in his hospital bed with minimally elevated HOB. HEENT: Head is atraumatic, normocephalic. EOMs intact. Sclera anicteric. Neck: No JVD. JVP is not elevated. Carotid upstrokes are +2 bilaterally without obvious bruits. Chest and Lungs: Mildly diminished breath sounds throughout. CVS: S1 and S2 are regular at 112 bpm with a grade 1/6 basal systolic murmur heard best at the right 2nd intercostal space. No obvious diastolic murmurs. No gallops or rubs. PMI is nonpalpable. No lifts, heaves, or thrills. No abdominal aortic or renal bruits. Median sternotomy scar is present. Abdominal Exam: Bowel sounds present. No masses, organomegaly, or tenderness. Extremities: No peripheral edema. + 2 radial artery pulsations bilaterally. Neurologic Exam: Patient is interact. Answers questions appropriately. Speech is clear. PODIATRIC PHYSICIAN: -- A-Flutter with improved ventricular response rate of 108 to 120's. Results & Data ([facility]) Vital Signs (Past 12 Hours) Vital Signs Temp Pulse Pulse Pulse Resp BP Pulse Ox 12/30/22 07:56 36.5 C 116 H 24 119/78 92 12/30/22 05:04 113 H 12/30/22 02:53 36.8 C 114 H 20 111/58 L 97 12/29/22 22:40 36.7 C 113 H 20 114/70 95 O2 Del Method O2 Flow Rate 12/30/22 07:56 Nasal Cannula 3.0 12/30/22 05:04 12/30/22 02:53 Nasal Cannula 3 12/29/22 22:40 Nasal Cannula 3 Laboratory Results Laboratory Results - last 24 hr 12/29/22 12/29/22 12/29/22 12:44 16:10 19:54 WBC RBC Hgb Hct MCV MCH MCHC RDW Std Deviation RDW Coeff of Masoud Plt Count MPV Immature Gran % (Auto) Neut % (Auto) Lymph % (Auto) [place] % (Auto) Eos % (Auto) Baso % (Auto) Neut # (Auto) Lymph # (Auto) [place] # (Auto) Eos # (Auto) Baso # (Auto) Immature Gran # (Auto) Absolute Nucleated RBC Nucleated RBC % (auto) Sodium Potassium Chloride Carbon Dioxide Anion Gap BUN Creatinine Est Cr Clr Drug Dosing Est GFR ( Amer) Est GFR (Non-Af Amer) BUN/Creatinine Ratio Glucose POC Glucose 83 79 71 Calcium 12/29/22 12/30/22 12/30/22 20:23 06:44 06:44 WBC 6.25 RBC 3.06 L Hgb 9.1 L Hct 29.4 L MCV 96.1 MCH 29.7 MCHC 31.0 L RDW Std Deviation 58.7 H RDW Coeff of Masoud 16.8 H Plt Count 146 MPV 12.8 H Immature Gran % (Auto) 1.3 Neut % (Auto) 84.1 Lymph % (Auto) 7.8 [place] % (Auto) 5.3 Eos % (Auto) 1.3 Baso % (Auto) 0.2 Neut # (Auto) 5.26 Lymph # (Auto) 0.49 L [place] # (Auto) 0.33 Eos # (Auto) 0.08 Baso # (Auto) 0.01 Immature Gran # (Auto) 0.08 Absolute Nucleated RBC 0.02 Nucleated RBC % (auto) 0.3 Sodium 135 L Potassium 4.0 Chloride 94 L Carbon Dioxide 34 H Anion Gap 7 BUN 21 Creatinine 4.38 H D Est Cr Clr Drug Dosing 19.9 Est GFR ( Amer) 15.5 Est GFR (Non-Af Amer) 13.4 BUN/Creatinine Ratio 4.8 L Glucose 103 H POC Glucose 91 Calcium 8.6 12/30/22 07:15 WBC RBC Hgb Hct MCV MCH MCHC RDW Std Deviation RDW Coeff of Masoud Plt Count MPV Immature Gran % (Auto) Neut % (Auto) Lymph % (Auto) [place] % (Auto) Eos % (Auto) Baso % (Auto) Neut # (Auto) Lymph # (Auto) [place] # (Auto) Eos # (Auto) Baso # (Auto) Immature Gran # (Auto) Absolute Nucleated RBC Nucleated RBC % (auto) Sodium Potassium Chloride Carbon Dioxide Anion Gap BUN Creatinine Est Cr Clr Drug Dosing Est GFR ( Amer) Est GFR (Non-Af Amer) BUN/Creatinine Ratio Glucose POC Glucose 101 H Calcium Medications Administered Medications nystatin 100,000 unit/gram topical cream 1 appln topical BID PRN Skin Irritation 07/23/19 [History Confirmed 12/19/22] ondansetron HCl 4 mg tablet (Zofran) 4 mg PO Q6 PRN nausea and vomiting #20 tabs 10/15/20 [Rx Confirmed 12/19/22] tadalafil 20 mg tablet (Cialis) 20 mg PO DAILY PRN sexual activity 09/16/22 [History Confirmed 12/19/22] oxycodone 5 mg capsule 5 mg PO Q6H PRN pain #30 caps 10/10/22 [Rx Confirmed 12/19/22] tramadol 50 mg tablet 50 mg PO BID #60 tabs 11/02/22 [Rx Confirmed 12/19/22] allopurinol 300 mg tablet 300 mg PO HS #90 tabs 12/03/22 [Rx Confirmed 12/19/22] amlodipine 5 mg tablet (Norvasc) 5 mg PO QAM #90 tabs 12/03/22 [Rx Confirmed 12/19/22] atorvastatin 40 mg tablet 40 mg PO HS #90 tabs 12/03/22 [Rx Confirmed 12/19/22] furosemide 40 mg tablet 40 mg PO QAM #90 tabs 12/03/22 [Rx Confirmed 12/19/22] lisinopril 5 mg tablet 5 mg PO HS #90 tabs 12/03/22 [Rx Confirmed 12/19/22] lorazepam 0.5 mg tablet 0.5 mg PO HS PRN anxiety/insomnia #30 tabs 12/03/22 [Rx Confirmed 12/19/22] metoprolol succinate 100 mg tablet,extended release 24 hr 150 mg PO QAM #135 tabs 12/03/22 [Rx Confirmed 12/19/22] nitroglycerin 0.4 mg sublingual tablet 0.4 mg sublingual UD PRN Chest Pain #25 tabs 12/03/22 [Rx Confirmed 12/19/22] omeprazole 20 mg capsule,delayed release 20 mg PO QAM #90 caps 12/03/22 [Rx Confirmed 12/19/22] prednisone 5 mg tablet 5 mg PO QAM #90 tabs 12/03/22 [Rx Confirmed 12/19/22] tamsulosin 0.4 mg capsule (Flomax) 0.4 mg PO HS #90 caps 12/03/22 [Rx Confirmed 12/19/22] venlafaxine 225 mg tablet,extended release 24 hr 225 mg PO HS #90 tabs 12/03/22 [Rx Confirmed 12/19/22] bupropion HCl 100 mg tablet,12 hr sustained-release 100 mg PO DAILY #30 ea 12/07/22 [Rx Confirmed 12/19/22] lancets (Accu-Chek Softclix Lancets) #100 ea 12/07/22 [Rx Confirmed 12/19/22] blood sugar diagnostic (OneTouch Verio test strips) #100 ea 12/08/22 [Rx Confirmed 12/19/22] amoxicillin 500 mg-potassium clavulanate 125 mg tablet (Augmentin) 1 tab PO BID #14 tabs 12/16/22 [Rx Confirmed 12/19/22] triamcinolone acetonide 0.1 % topical cream 1 applic topical BID PRN flare up 12/19/22 [History Confirmed 12/19/22] Home Medications Acetaminophen (Acetaminophen 325 Mg Tab) 650 mg PO Q4H PRN PRN Reason: Pain or Fever Stop: 01/18/23 18:38 Albuterol (Albuterol 0.083% Nebu Soln 3 Ml Vial) 2.5 mg NEB Q6R PRN; Protocol PRN Reason: Wheezing Stop: 01/21/23 20:50 Last Admin: 12/29/22 09:57 Dose: 2.5 mg Allopurinol (Allopurinol 300 Mg Tab) 300 mg PO HS [facility] Stop: 01/18/23 20:59 Last Admin: 12/29/22 20:42 Dose: 300 mg Amiodarone HCl (Amiodarone 200 Mg Tab) 200 mg PO BIDM [facility] Stop: 01/29/23 07:59 Apixaban (Apixaban 2.5 Mg Tab) 2.5 mg PO BID [facility] Stop: 01/27/23 20:59 Last Admin: 12/30/22 08:16 Dose: 2.5 mg Atorvastatin Calcium (Atorvastatin 40 Mg Tab) 40 mg PO HS [facility] Stop: 01/18/23 20:59 Last Admin: 12/29/22 20:43 Dose: 40 mg Bupropion HCl (Bupropion Sr 100 Mg Tabcr) 100 mg PO DAILY [facility] Stop: 01/19/23 08:59 Last Admin: 12/30/22 08:16 Dose: 100 mg Dextrose (Dextrose 50% 50 Ml Syringe) 25 - 50 ml IV UD PRN; Protocol PRN Reason: Hypoglycemia Protocol Stop: 01/18/23 18:38 Last Admin: 12/22/22 07:58 Dose: 25 ml Ferrous Sulfate (Ferrous Sulfate 325 Mg Tab) 325 mg PO BIDM [facility] Stop: 01/23/23 16:59 Last Admin: 12/30/22 08:16 Dose: 325 mg Glucagon (Glucagon For Inj 1 Mg Vial) 1 mg SQ UD PRN; Protocol PRN Reason: Hypoglycemia Protocol Stop: 01/18/23 18:38 Glucose (Glucose 10 Tab/Tube) 4 - 8 tab PO UD PRN; Protocol PRN Reason: Hypoglycemia Treatment Stop: 01/18/23 18:38 Glucose (Glucose 40% Gel 15 Gm Tube) 15 - 30 gm PO UD PRN; Protocol PRN Reason: Hypoglycemia Protocol Stop: 01/18/23 18:38 Guaifenesin/Dextromethorphan (Guaifenesin/Dextrom Syrup 200mg/20mg 10ml Udc) 10 ml PO Q6H PRN PRN Reason: Cough Stop: 01/22/23 08:02 Last Admin: 12/28/22 21:08 Dose: 10 ml Insulin Aspart (Insulin Aspart Per Unit) 0 units SC ACHS [facility] Stop: 01/18/23 20:59 Last Admin: 12/29/22 20:39 Dose: Not Given Insulin Glargine (Lantus Per Unit Charge) 10 units SQ BID [facility] Stop: 01/18/23 20:59 Last Admin: 12/22/22 10:30 Dose: Not Given Lorazepam (Lorazepam 0.5 Mg Tab) 0.5 mg PO HS PRN PRN Reason: anxiety/insomnia Stop: 01/18/23 18:38 Last Admin: 12/29/22 21:29 Dose: 0.5 mg Metoprolol Succinate (Metoprolol Succ 50mg Ext Rel Tab) 200 mg PO BID [facility]OX[facility] Stop: 01/27/23 20:59 Last Admin: 12/30/22 08:17 Dose: 200 mg Metoprolol Tartrate (Metoprolol Tartrate 1 Mg/Ml Vial) 5 mg IV Q4 PRN PRN Reason: Tachycardia, HR > 110 bpm Stop: 01/21/23 19:59 Last Admin: 12/29/22 17:00 Dose: 5 mg Miscellaneous (Carbohydrates For Hypoglycemia ) 15 - 30 gm PO UD PRN PRN Reason: Hypoglycemia Protocol Stop: 01/18/23 18:38 Last Admin: 12/22/22 14:45 Dose: 30 gm Ondansetron HCl (Ondansetron Inj 2 Mg/Ml 2 Ml Vial) 4 mg IV Q6H PRN PRN Reason: Nausea And Vomiting Stop: 01/20/23 03:38 Last Admin: 12/21/22 03:52 Dose: 4 mg Pantoprazole Sodium (Pantoprazole 40 Mg Tab) 40 mg PO QAM [facility] Stop: 01/19/23 08:59 Last Admin: 12/30/22 08:17 Dose: 40 mg Polyethylene Glycol (Polyethylene (Miralax) 17 Gm Pack) 17 gm PO DAILY [facility] Stop: 01/22/23 08:59 Last Admin: 12/30/22 08:17 Dose: Not Given Tamsulosin HCl (Tamsulosin Hcl 0.4 Mg Cap) 0.4 mg PO HS [facility] Stop: 01/18/23 20:59 Last Admin: 12/29/22 20:42 Dose: 0.4 mg Tramadol HCl (Tramadol Hcl 50 Mg Tablet) 50 mg PO BID [facility] Stop: 01/18/23 20:59 Last Admin: 12/30/22 08:17 Dose: 50 mg Venlafaxine HCl (Venlafaxine Hcl Xr 75 Mg Capxr) 150 mg PO HS [facility] Stop: 01/18/23 20:59 Last Admin: 12/29/22 20:43 Dose: 150 mg PG Care Time/CCT Total # of Minutes Spent Total Time Spent with Patient: Total time spent is greater than 50% in coordination of care (as documented) at patient's floor/unit and/or counseling patient:21 Coding [place] [address] SUB INP/OBS CARE 3/50MIN Patient Type Established History Detailed Exam Detailed Medical Decision Making High Complexity Diagnoses Atrial flutter with rapid ventricular response I48.92 Systolic heart failure I50.20 Cardiomyopathy I42.9 Acute respiratory failure with hypoxia J96.01 CAD (coronary artery disease) I25.10 ESRD (end stage renal disease) N18.6 Time Spent (min) 44
[2022-12-30] MEDS: AMIODARONE 200 MG TAB PO SCH ×2 (09:52→17:56)
[2022-12-30] MEDS: INSULIN ASPART PER UNIT SC SCH ×4 (09:58→20:58)
--- NOTE | 2022-12-30 11:15 | Nephrology Progress Note ---
Date of Service December 30, 2022 Assessment & Plan (1) ESRD (end stage renal disease): Plan: now ESRD after TANYA on CKD 4; now on dialysis which I expect to be chronic ESRD d/t advanced vascular disease now w/ ischemic ATN in setting of COVID 19 infection and atrophied R kidney. Creatinine peaked at 5.6 from a baseline of mid threes October 2022. Patient also had metabolic acidosis and hyperkalemia with worsened heart failure, respiratory failure, and volume overload > first HD 12/22 after TDC placement same day -Monitor renal function with daily BMP -Avoid nephrotoxins such as contrast and NSAIDs. > Patient tolerated dialysis yesterday for 4 hours and -4 L . 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 He had dialysis yesterday with net UF of 4 L. Breathing is better today. He is planned for cardioversion tomorrow Review of Systems Review of Systems: All other systems were reviewed and negative except as noted in HPI Physical Exam Physical Exam: General exam: No respiratory distress HEENT: Pupils are equal and reactive to light Neck: No JVD, neck is supple trachea is midline Respiratory system: Wheezing bilaterally. Gastrointestinal: Abdomen is soft, non distended, non tender, bowel sounds are present CVS: Regular rate and rhythm. No murmurs, rubs or gallops Musculoskeletal: No joint or muscle tenderness Extremities: Non tender, no edema, peripheral pulses are present Neuro: Oriented, no tremors, no focal neurological deficits Skin: No rashes Results & Data ([facility]) Vital Signs (Past 12 Hours) Vital Signs Temp Pulse Pulse Pulse Resp BP Pulse Ox 12/30/22 07:56 36.5 C 116 H 24 119/78 92 12/30/22 05:04 113 H 12/30/22 02:53 36.8 C 114 H 20 111/58 L 97 O2 Del Method O2 Flow Rate 12/30/22 07:56 Nasal Cannula 3.0 12/30/22 05:04 12/30/22 02:53 Nasal Cannula 3 Laboratory Results 12/30/22 06:44 12/30/22 06:44 WBC 6.25 RBC 3.06 L MCV 96.1 MCH 29.7 MCHC 31.0 L RDW Std Deviation 58.7 H RDW Coeff of Masoud 16.8 H Plt Count 146 MPV 12.8 H
--- NOTE | 2022-12-30 14:36 | XRay Report ---
SINGLE VIEW CHEST CLINICAL HISTORY: Congestive heart failure FINDINGS: An AP, portable, upright chest radiograph is compared to study dated 12/28/2022. A right inte rnal jugular central venous catheter is unchanged in position. The patient is status post midline josé miguel rnotomy. The heart is enlarged noting atherosclerotic calcification of the thoracic aorta. There is p ulmonary vascular congestion and mild interstitial edema. This is similar previous. Small pleural eff usions are suspected with dependent atelectasis. No pneumothorax is seen. The skeletal structures are osteopenic. The bony thorax is grossly intact. Superior subluxation of the right humeral head sugges ts chronic rotator cuff injury. IMPRESSION: 1. Cardiomegaly with evidence of congestive failure and mild pulmonary edema. This is similar to prev ious. 2. Suspect small pleural effusions. ACT 112: Negative or not required by law. Electronically signed by: Lane Escobar M.D. 12/30/2022 2:35 PM
--- NOTE | 2022-12-30 16:01 | Hospitalist Progress Note ---
Date of Service December 30, 2022 Assessment & Plan (1) Acute on chronic HFrEF (heart failure with reduced ejection fraction): Plan: ECHO showed EF 20-25% with global hypokinesis, previous ECHO in 2021 had showed EF 50-55%. Currently receiving hemodialysis for fluid management. Monitor intake and output. Low-sodium diet. Appreciate cardiology consultation and recommendations . Improving (2) Cardiomyopathy: Plan: Known ischemic cardiomyopathy. Continue current medical management. Treat underlying CHF. Control heart rate. Telemetry (3) Acute respiratory failure with hypoxia: Plan: Supplemental oxygen per nasal cannula to maintain saturation greater than 90%. Treat underlying CHF. Wean off as tolerated . Serial chest x-ray (4) Atrial flutter with rapid ventricular response: Plan: He remains on a diltiazem drip along with Eliquis. Amiodarone added today, December 30, per cardiology. He will undergo MCKAYLA electrical cardioversion tomorrow, December 31. Appreciate cardiology consultation and recommendations. (5) Anemia: Plan: Probably a combination of acute blood loss from permacath palcement, ESRD, and also Iron def. Continue oral iron supplements. Serial labs. Transfuse as needed (6) COVID-19: Plan: Tested positive. No current evidence of viral pneumonia. Supportive care. (7) TANYA (acute kidney injury): Plan: Acute on chronic kidney disease stage V. Now end-stage renal disease on HD. Appreciate Nephrology input. Serial labs (8) Hyperkalemia: Plan: Corrected. Serial labs (9) Hyperlipidemia: Plan: Continue atorvastatin 40 mg p.o. daily (10) Type II diabetes mellitus: Plan: HbA1c 7.1 in August. Basal insulin therapy. Sliding scale coverage as needed. (11) CAD (coronary artery disease): Plan: S/p CABG x2 vessels (BOSTON to LAD, SVG to OM3) in 2010. Stable with current medical management including aspirin, metoprolol, lisinopril, atorvastatin (12) CKD (chronic kidney disease) stage 4, GFR 15-29 ml/min: Plan: Now end-stage renal disease on HD. Monitor intake and output. Serial labs Plan Disposition: To be determined . OT and PT assessments requested Admission and Anticipated Discharge Date Admission Date: December 19, 2022 Subjective The patient is improved overall and appears comfortable. Amiodarone has been started by cardiology for heart rate control. Electrical cardioversion will be tomorrow, December 31. Portable chest x-ray obtained today, December 30, was interpreted as no significant change. Known ejection fraction of 20%. Fluid volume is being managed by nephrology per hemodialysis. Oxygen saturation 92% on 3 L. Review of Systems Review of Systems: Constitutional-no fever or chills ENT-no blurred vision, no double vision, no epistaxis, no sore throat Respiratory-no cough, no wheezing. Shortness of breath with exertion Cardiac-no palpitations, no chest pain, no syncope GI-no nausea, vomiting, diarrhea, melena, hematochezia -no urinary retention, no urinary incontinence, no dysuria, no hematuria Musculoskeletal-no joint pain, no muscle tenderness Skin-no bruising, no rashes, no pruritus Neuro-no isolated weakness, no paresthesia, no weakness Psych-no depression, no anxiety Physical Exam Physical Exam: General-alert and oriented x3, no fevers, no chills HEENT-head atraumatic and normocephalic, pupils equal and reactive to light, extraocular muscles intact Neck-no lymphadenopathy or thyromegaly, trachea midline Chest-diminished breath sounds bilaterally. No wheezing. No audible rales Cardiac-irregular rhythm, slightly tachycardic rate. Abdomen-normal bowel sounds, nontender, no hepatosplenomegaly Extremities-no cyanosis, clubbing. Chronic bilateral lower extremity edema Neuro-cranial nerves II through XII intact, motor and sensory function within normal limits, strength symmetrical , no focal deficits Psych-normal affect, normal mood Results & Data Results & Data ([facility]) Vital Signs (Past 12 Hours) Vital Signs Temp Pulse Pulse Resp BP Pulse Ox O2 Del Method 12/30/22 11:52 36.4 C L 104 H 22 124/84 96 Nasal Cannula 12/30/22 10:59 Nasal Cannula 12/30/22 07:56 36.5 C 116 H 24 119/78 92 Nasal Cannula 12/30/22 05:04 113 H O2 Flow Rate 12/30/22 11:52 3.0 12/30/22 10:59 3 12/30/22 07:56 3.0 12/30/22 05:04 Laboratory Results 12/30/22 06:44 12/30/22 06:44 PG Care Time/CCT Total # of Minutes Spent Total Time Spent with Patient: Total time spent is greater than 50% in coordination of care (as documented) at patient's floor/unit and/or counseling patient: Coding Level of Care Code 42292 SUB INP/OBS CARE 3/50MIN Diagnoses Acute on chronic HFrEF (heart failure with reduced ejection fraction) I50.23 Cardiomyopathy I42.9 Acute respiratory failure with hypoxia J96.01 Atrial flutter with rapid ventricular response I48.92 Anemia D64.9 COVID-19 U07.1 TANYA (acute kidney injury) N17.9 Hyperkalemia E87.5 Hyperlipidemia E78.5 Type II diabetes mellitus E11.9 CAD (coronary artery disease) I25.10 CKD (chronic kidney disease) stage 4, GFR 15-29 ml/min N18.4
[2022-12-30] MEDS: ATORVASTATIN 40 MG TAB PO SCH (20:19)
[2022-12-30] MEDS: TAMSULOSIN HCL 0.4 MG CAP PO SCH (20:19)
[2022-12-30] MEDS: allopurinoL 300 MG TAB PO SCH (20:19)
[2022-12-30] MEDS: LORazepam 0.5 MG TAB PO PRN (20:19)
[2022-12-30] MEDS: VENLAFAXINE HCL XR 75 MG CAPXR PO SCH (20:19)
[2022-12-30] MEDS: ALBUTEROL 0.083% NEBU SOLN 3 ML VIAL NEB PRN (22:58)
[2022-12-31] MEDS ORDERED: BENZOCAINE/TETRACAIN/BUTAM 50 APPLN/5 GM CAN EXT ONE (07:16)
[2022-12-31 07:28] LABS: Basophils # (auto) 0.01 K/uL (0-0.2); Basophils % (auto) 0.2 %; Eosinophils # (auto) 0.09 K/uL (0-0.50); Eosinophils % (auto) 1.6 %; Hematocrit (blood only) 29.1 % (42.0-52.0); Hemoglobin 9.1 g/dl (14.0-18.0); Immature Granulocytes # (auto) 0.08 K/uL (0.01-0.20); Immature Granulocytes % (auto) 1.4 %; Lymphocytes # (auto) 0.66 K/uL (1.2-3.4); Lymphocytes % (auto) 11.4 %; Mean Corpuscular Hemoglobin 29.5 pg (25.0-34.0); Mean Corpuscular Hgb Conc 31.3 g/dL (32.0-36.0); Mean Corpuscular Volume 94.5 fL (80.0-100.0); Mean Platelet Volume 12.6 fL (9.4-12.4); Monocytes # (auto) 0.35 K/uL (0.11-0.59); Monocytes % (auto) 6.1 %; Neutrophils # (auto) 4.58 K/uL (1.40-6.50); Neutrophils % (auto) 79.3 %; Platelet Count 143 K/uL (130-400); RDW Coefficient of Variation 16.9 % (11.5-14.5); RDW Standard Deviation 57.7 fL (36.4-46.3); Red Blood Count 3.08 M/uL (4.70-6.10); White Blood Count 5.77 K/ul (4.8-10.8)
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
--- NOTE | 2022-12-31 08:13 | Anesthesiology Progress Note ---
Date of Service December 31, 2022 Anesthesia Post Procedure Vital Signs Vital Signs: Temp Pulse Pulse Pulse Resp BP BP 12/31/22 08:07 70 18 106/65 12/31/22 07:17 36.8 C 119 H 18 99/69 L 12/31/22 04:23 36.8 C 107 H 18 132/80 12/31/22 01:55 23 12/31/22 00:15 103 H 12/30/22 22:58 107 H 22 12/30/22 22:29 36.7 C 107 H 25 H 110/76 12/30/22 21:07 12/30/22 18:53 36.6 C 118 H 22 120/88 12/30/22 16:17 36.8 C 112 H 24 144/80 H 12/30/22 11:52 36.4 C L 104 H 22 124/84 12/30/22 10:59 Pulse Ox O2 Del Method O2 Flow Rate 12/31/22 08:07 95 Room Air 12/31/22 07:17 100 Oxymask 3 12/31/22 04:23 94 Nasal Cannula 3 12/31/22 01:55 94 Nasal Cannula 3 12/31/22 00:15 12/30/22 22:58 96 Nasal Cannula 3 12/30/22 22:29 98 Nasal Cannula 3 12/30/22 21:07 Nasal Cannula 3 12/30/22 18:53 97 Nasal Cannula 3.0 12/30/22 16:17 97 Nasal Cannula 3.0 12/30/22 11:52 96 Nasal Cannula 3.0 12/30/22 10:59 Nasal Cannula 3 Transfer of Care Handoff Completed per policy Notes Mental Status: alert / awake / arousable and participated in evaluation Patient Amnestic to Procedure: Yes Nausea / Vomiting: adequately controlled Pain: adequately controlled Airway Patency, RR, SpO2: stable & adequate BP & HR: stable & adequate Hydration State: stable & adequate Anesthetic Complications: no major complications apparent and Pt Satisfied with anesthetic care
[2022-12-31 08:22] LABS: BUN Creatinine Ratio 5.5 (10-20); Calcium 8.4 mg/dl (8.5-10.1); Creatinine Clr Calc Pharmacy 15.6 ml/min; Est GFR (African American) 11.5 ml/min; Est GFR (Non-African American) 9.9 ml/min; Potassium 3.6 mmol/L (3.5-5.1)
[2022-12-31] MEDS: INSULIN ASPART PER UNIT SC SCH ×4 (08:55→20:54)
[2022-12-31] MEDS ORDERED: LIDOCAINE 2% MPF LOCAL 5 ML VIAL INFIL ONE (09:01)
[2022-12-31] MEDS ORDERED: PROPOFOL IV EMULSION 10 MG/ML 20 ML VIAL IV ONE (09:01)
[2022-12-31] MEDS ORDERED: PHENYLEPHRINE 100MCG/ML 5ML SYR ONE (09:01)
[2022-12-31] MEDS ORDERED: SODIUM CHLORIDE 0.9% 1000ML 1,000 ML IV PRN (09:39)
[2022-12-31] MEDS ORDERED: EPOETIN ALFA 10,000 UNITS/ML VIAL IV ONE (09:39)
[2022-12-31] MEDS ORDERED: HEPARIN SOD (PORCINE) 1000 UNIT/ML IV ONE (09:39)
--- NOTE | 2022-12-31 11:03 | Nephrology Progress Note ---
Date of Service December 31, 2022 Assessment & Plan (1) ESRD (end stage renal disease): Plan: now ESRD after TANYA on CKD 4; now on dialysis which I expect to be chronic ESRD d/t advanced vascular disease now w/ ischemic ATN in setting of COVID 19 infection and atrophied R kidney. Creatinine peaked at 5.6 from a baseline of mid threes October 2022. Patient also had metabolic acidosis and hyperkalemia with worsened heart failure, respiratory failure, and volume overload > first HD 12/22 after TDC placement same day -Monitor renal function with daily BMP -Avoid nephrotoxins such as contrast and NSAIDs. > Patient tolerating dialysis well today for 4 hours and -4 L . 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 He had cardioversion this morning. Breathing is slightly better. Patient was seen and examined while on dialysis. Review of Systems Review of Systems: All other systems were reviewed and negative except as noted in HPI Physical Exam Physical Exam: General exam: No respiratory distress HEENT: Pupils are equal and reactive to light Neck: No JVD, neck is supple trachea is midline Respiratory system: Wheezing bilaterally. Gastrointestinal: Abdomen is soft, non distended, non tender, bowel sounds are present CVS: Regular rate and rhythm. No murmurs, rubs or gallops Musculoskeletal: No joint or muscle tenderness Extremities: Non tender, no edema, peripheral pulses are present Neuro: Oriented, no tremors, no focal neurological deficits Skin: No rashes Results & Data ([facility]) Vital Signs (Past 12 Hours) Vital Signs Temp Pulse Pulse Resp BP Pulse Ox O2 Del Method 12/31/22 10:05 107/68 12/31/22 09:45 85 132/88 12/31/22 09:30 94 H 105/69 12/31/22 08:30 84 12/31/22 08:30 Room Air 12/31/22 08:30 36.4 C L 80 20 93/67 L 94 Room Air 12/31/22 08:25 74 18 99/70 L 94 Room Air 12/31/22 08:07 70 18 106/65 95 Room Air 12/31/22 07:17 36.8 C 119 H 18 99/69 L 100 Oxymask 12/31/22 04:23 36.8 C 107 H 18 132/80 94 Nasal Cannula 12/31/22 01:55 23 94 Nasal Cannula 12/31/22 00:15 103 H O2 Flow Rate 12/31/22 10:05 12/31/22 09:45 12/31/22 09:30 12/31/22 08:30 12/31/22 08:30 12/31/22 08:30 12/31/22 08:25 12/31/22 08:07 12/31/22 07:17 3 12/31/22 04:23 3 12/31/22 01:55 3 12/31/22 00:15 Laboratory Results 12/31/22 06:45 12/31/22 06:45 WBC 5.77 RBC 3.08 L MCV 94.5 MCH 29.5 MCHC 31.3 L RDW Std Deviation 57.7 H RDW Coeff of Masoud 16.9 H Plt Count 143 MPV 12.6 H
[2022-12-31] MEDS: HEPARIN SOD (PORCINE) 1000 UNIT/ML IV SCH (12:44)
--- NOTE | 2022-12-31 13:15 | XCELERA ---
[id number]
--- NOTE | 2022-12-31 13:31 | Cardioversion ---
Date of Service December 31, 2022 PG Electrical Cardioversion Rp Electrical Cardioversion Report Indication: Atrial flutter Written consent was obtained after the risks and benefits were explained, including but not limited to pain, thermal burn, allergic reaction, aspiration, airway obstruction, laryngospasm, infection, hypotension, and cardiorespiratory arrest. Sedation was supervised by Anesthesiology. The biphasic defibrillator was set to 50 joules of energy and synched. After confirmation of sedation and "all clear" safety check the synchronized shock was delivered. This resulted in successful conversion of the dysrhythmia back into sinus rhythm. See nursing notes for dosages and times. There were no complications and the patient recovered uneventfully from the procedure. Coding Level of Care Code 96158 CARDIOVERSION, ELECTIVE Additional Codes Electrical Cardioversion Report ([id number])
--- NOTE | 2022-12-31 14:21 | Cardiology Progress Note ---
Date of Service December 31, 2022 Assessment & Plan (1) Atrial flutter with rapid ventricular response: (2) HFrEF (heart failure with reduced ejection fraction): (3) Cardiomyopathy: (4) CAD (coronary artery disease): (5) ESRD (end stage renal disease): Plan Stable post MCKAYLA/cardioversion earlier this morning, rhythm remaining sinus. LV function is still poor (EF 20%) As noted, he is undergoing further volume unloading by hemodialysis. Continue amiodarone 200 mg twice daily for 2 weeks total, then 200 mg daily. Would recommend starting Entresto 24/26 mg twice daily, if well-tolerated the dose could be titrated up in 2 to 4 weeks. Now that he is on amiodarone and back in sinus rhythm, could reduce metoprolol succinate from 200 mg twice daily to 200 mg daily. Admission and Anticipated Discharge Date Admission Date: December 19, 2022 Subjective Uneventful night. Earlier this morning patient underwent transesophageal echocardiogram (to exclude left atrial appendage thrombus) and subsequent electrical cardioversion (50 J x 1 shock). He has remained in sinus rhythm sin ce the cardioversion. No current complaints, undergoing hemodialysis. Physical Exam Physical Exam: No distress. Weight up 1 pound from yesterday. BP normotensive. Pulse 90 bpm and regular. Skin: no ecchymoses or generalized lesions. HEENT: unremarkable. Neck: Jugular venous pulse appears mildly elevated, no carotid bruits. Lungs: Mildly diminished breath sounds but generally clear. Cardiac: regular rhythm, no obvious murmur. Abdomen: benign. Extremities: No pretibial edema, pulses intact. Neurologic: normal affect and conversation, nonfocal. Results & Data ([facility]) Laboratory Results Normal electrolytes, BUN 31, creatinine 5.6. PG Care Time/CCT Total # of Minutes Spent Total Time Spent with Patient: Total time spent is greater than 50% in coordination of care (as documented) at patient's floor/unit and/or counseling patient: Coding Level of Care Code 35141 SUB INP/OBS CARE 3/50MIN Diagnoses Atrial flutter with rapid ventricular response I48.92 HFrEF (heart failure with reduced ejection fraction) I50.20 Cardiomyopathy I42.9 CAD (coronary artery disease) I25.10 ESRD (end stage renal disease) N18.6
[2022-12-31] MEDS: buPROPion SR 100 MG TABCR PO SCH (15:20)
[2022-12-31] MEDS: PANTOprazole 40 MG TAB PO SCH (15:20)
[2022-12-31] MEDS: APIXABAN 2.5 MG TAB PO SCH ×2 (15:20→20:09)
[2022-12-31] MEDS: AMIODARONE 200 MG TAB PO SCH ×2 (15:20→16:55)
[2022-12-31] MEDS: METOPROLOL SUCC 50MG EXT REL TAB PO SCH ×2 (15:21→20:11)
[2022-12-31] MEDS: POLYETHYLENE (MIRALAX) 17 GM PACK PO SCH (15:21)
[2022-12-31] MEDS: FERROUS SULFATE 325 MG TAB PO SCH ×2 (15:21→16:55)
[2022-12-31] MEDS: traMADol HCL 50 MG TABLET PO SCH ×2 (15:40→20:39)
--- NOTE | 2022-12-31 16:12 | Hospitalist Progress Note ---
Date of Service December 31, 2022 Assessment & Plan (1) Acute on chronic HFrEF (heart failure with reduced ejection fraction): Plan: ECHO showed EF 20-25% with global hypokinesis, previous ECHO in 2021 had showed EF 50-55%. Currently receiving hemodialysis for fluid management. Monitor intake and output. Low-sodium diet. Appreciate cardiology consultation and recommendations . Improving with dialysis (2) Cardiomyopathy: Plan: Known ischemic cardiomyopathy. Continue current medical management. Treat underlying CHF. Control heart rate. Telemetry (3) Acute respiratory failure with hypoxia: Plan: He is now off oxygen and on room air. Serial chest x-ray every 2 days until baseline is reached. Treat underlying CHF. (4) Atrial flutter with rapid ventricular response: Plan: He underwent electrical cardioversion this morning, December 31. He is off the diltiazem drip. Repeat EKG is pending. Appreciate cardiology consultation and recommendations. (5) Anemia: Plan: Probably a combination of acute blood loss from permacath palcement, ESRD, and also Iron def. Continue oral iron supplements. Serial labs. Transfuse as needed (6) COVID-19: Plan: Tested positive. No current evidence of viral pneumonia. Supportive care. Isolation precautions discontinued today, December 31 (7) TANYA (acute kidney injury): Plan: Acute on chronic kidney disease stage V. Now end-stage renal disease on HD. Appreciate Nephrology input. Serial labs (8) Hyperkalemia: Plan: Corrected. Serial labs (9) Hyperlipidemia: Plan: Continue atorvastatin 40 mg p.o. daily (10) Type II diabetes mellitus: Plan: HbA1c 7.1 in August. Basal insulin therapy. Sliding scale coverage as needed. (11) CAD (coronary artery disease): Plan: S/p CABG x2 vessels (BOSTON to LAD, SVG to OM3) in 2010. Stable with current medical management including aspirin, metoprolol, lisinopril, atorvastatin (12) CKD (chronic kidney disease) stage 4, GFR 15-29 ml/min: Plan: Now end-stage renal disease on HD. Monitor intake and output. Serial labs Plan Disposition: Anticipate eventual discharge to home Admission and Anticipated Discharge Date Admission Date: December 19, 2022 Subjective Alert and oriented. He is feeling better. He underwent electrical card ioversion this morning, December 31. Repeat EKG is pending. We will recheck portable chest x-ray again tomorrow, January 01. He is now on room air. Systolic blood pressure is low normal. Hemoglobin stable. Review of Systems Review of Systems: Constitutional-no fever or chills ENT-no blurred vision, no double vision, no epistaxis, no sore throat Respiratory-no cough, no wheezing. Shortness of breath with exertion Cardiac-no palpitations, no chest pain, no syncope GI-no nausea, vomiting, diarrhea, melena, hematochezia -no urinary retention, no urinary incontinence, no dysuria, no hematuria Musculoskeletal-no joint pain, no muscle tenderness Skin-no bruising, no rashes, no pruritus Neuro-no isolated weakness, no paresthesia, no weakness Psych-no depression, no anxiety Physical Exam Physical Exam: General-alert and oriented x3, no fevers, no chills HEENT-head atraumatic and normocephalic, pupils equal and reactive to light, extraocular muscles intact Neck-no lymphadenopathy or thyromegaly, trachea midline Chest-diminished breath sounds bilaterally. No wheezing. No audible rales Cardiac-irregular rhythm, slightly tachycardic rate. Abdomen-normal bowel sounds, nontender, no hepatosplenomegaly Extremities-no cyanosis, clubbing. Chronic bilateral lower extremity edema Neuro-cranial nerves II through XII intact, motor and sensory function within normal limits, strength symmetrical , no focal deficits Psych-normal affect, normal mood Results & Data Results & Data ([facility]) Vital Signs (Past 12 Hours) Vital Signs Temp Pulse Pulse Pulse Resp BP BP 12/31/22 14:30 82 113/74 12/31/22 14:00 90 121/74 12/31/22 13:30 92 H 124/65 12/31/22 13:00 92 H 118/81 12/31/22 12:30 95 H 115/78 12/31/22 12:00 95 H 119/75 12/31/22 11:30 92 H 155/92 H 12/31/22 11:00 90 132/101 H 12/31/22 10:53 90 128/77 12/31/22 10:37 36.3 C L 93 H 12/31/22 10:05 107/68 12/31/22 09:45 85 132/88 12/31/22 09:30 94 H 105/69 12/31/22 08:30 84 12/31/22 08:30 12/31/22 08:30 36.4 C L 80 20 93/67 L 12/31/22 08:25 74 18 99/70 L 12/31/22 08:07 70 18 106/65 12/31/22 07:17 36.8 C 119 H 18 99/69 L 12/31/22 04:23 36.8 C 107 H 18 132/80 Pulse Ox O2 Del Method O2 Flow Rate 12/31/22 14:30 12/31/22 14:00 12/31/22 13:30 12/31/22 13:00 12/31/22 12:30 12/31/22 12:00 12/31/22 11:30 12/31/22 11:00 12/31/22 10:53 12/31/22 10:37 12/31/22 10:05 12/31/22 09:45 12/31/22 09:30 12/31/22 08:30 12/31/22 08:30 Room Air 12/31/22 08:30 94 Room Air 12/31/22 08:25 94 Room Air 12/31/22 08:07 95 Room Air 12/31/22 07:17 100 Oxymask 3 12/31/22 04:23 94 Nasal Cannula 3 Laboratory Results 12/31/22 06:45 12/31/22 06:45 PG Care Time/CCT Total # of Minutes Spent Total Time Spent with Patient: Total time spent is greater than 50% in coordination of care (as documented) at patient's floor/unit and/or counseling patient: Coding Level of Care Code 26715 SUB INP/OBS CARE 3/50MIN Diagnoses Acute on chronic HFrEF (heart failure with reduced ejection fraction) I50.23 Cardiomyopathy I42.9 Acute respiratory failure with hypoxia J96.01 Atrial flutter with rapid ventricular response I48.92 Anemia D64.9 COVID-19 U07.1 TANYA (acute kidney injury) N17.9 Hyperkalemia E87.5 Hyperlipidemia E78.5 Type II diabetes mellitus E11.9 CAD (coronary artery disease) I25.10 CKD (chronic kidney disease) stage 4, GFR 15-29 ml/min N18.4
[2022-12-31] MEDS: ATORVASTATIN 40 MG TAB PO SCH (20:09)
[2022-12-31] MEDS: TAMSULOSIN HCL 0.4 MG CAP PO SCH (20:10)
[2022-12-31] MEDS: VENLAFAXINE HCL XR 75 MG CAPXR PO SCH (20:11)
[2022-12-31] MEDS: allopurinoL 300 MG TAB PO SCH (20:11)
[2022-12-31] MEDS: LORazepam 0.5 MG TAB PO PRN (23:20)
[2023-01-01] MEDS: METOPROLOL SUCC 50MG EXT REL TAB PO SCH (07:51)
[2023-01-01] MEDS: buPROPion SR 100 MG TABCR PO SCH (07:52)
[2023-01-01] MEDS: APIXABAN 2.5 MG TAB PO SCH ×2 (07:52→20:24)
[2023-01-01] MEDS: AMIODARONE 200 MG TAB PO SCH ×2 (07:52→17:17)
[2023-01-01] MEDS: PANTOprazole 40 MG TAB PO SCH (07:53)
[2023-01-01] MEDS: POLYETHYLENE (MIRALAX) 17 GM PACK PO SCH (07:53)
[2023-01-01] MEDS: FERROUS SULFATE 325 MG TAB PO SCH ×2 (07:53→17:16)
[2023-01-01] MEDS: traMADol HCL 50 MG TABLET PO SCH ×2 (07:55→20:24)
[2023-01-01] MEDS: INSULIN ASPART PER UNIT SC SCH ×4 (08:03→20:52)
[2023-01-01] MEDS ORDERED: METOPROLOL SUCC 50MG EXT REL TAB PO SCH (08:54)
--- NOTE | 2023-01-01 09:14 | XRay Report ---
XR chest 1V portable CLINICAL HISTORY: CHF TECHNIQUE: Single frontal radiograph of the chest was obtained. Comparison: Comparison is made to chest radiograph 12/30/2022 FINDINGS: Median sternotomy wires are unchanged. Dual-lumen catheter is seen in the right internal jugular vein . The cardiomediastinal silhouette is normal. The lungs are clear. No evidence of pleural effusion or pneumothorax. IMPRESSION: No acute chest disease. ACT 112: Negative or not required by law. Electronically signed by: Dean Alatorre M.D. 01/01/2023 9:13 AM
[2023-01-01 10:25] LABS: Calcium 8.8 mg/dl (8.5-10.1); Potassium 3.9 mmol/L (3.5-5.1)
[2023-01-01 10:31] LABS: BUN Creatinine Ratio 3.7 (10-20); Creatinine Clr Calc Pharmacy 19.9 ml/min; Est GFR (African American) 15.5 ml/min; Est GFR (Non-African American) 13.4 ml/min
[2023-01-01] MEDS: VALSARTAN/SACUBITRIL 26/24MG TAB PO SCH ×2 (11:02→20:23)
--- NOTE | 2023-01-01 11:44 | Nephrology Progress Note ---
Date of Service January 01, 2023 Assessment & Plan (1) ESRD (end stage renal disease): Plan: now ESRD after TANYA on CKD 4; now on dialysis which I expect to be chronic ESRD d/t advanced vascular disease now w/ ischemic ATN in setting of COVID 19 infection and atrophied R kidney. Creatinine peaked at 5.6 from a baseline of mid threes October 2022. Patient also had metabolic acidosis and hyperkalemia with worsened heart failure, respiratory failure, and volume overload > first HD 12/22 after TDC placement same day -Monitor renal function with daily BMP -Avoid nephrotoxins such as contrast and NSAIDs. > We will plan dialysis tomorrow for 4 hours and -4 L . 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 Breathing is better today. He is still on oxygen nasal cannula 3 L. He reports not feeling well after dialysis yesterday. Review of Systems Review of Systems: All other systems were reviewed and negative except as noted in HPI Physical Exam Physical Exam: General exam: No respiratory distress HEENT: Pupils are equal and reactive to light Neck: No JVD, neck is supple trachea is midline Respiratory system: Reduced breath sounds bilaterally. Gastrointestinal: Abdomen is soft, non distended, non tender, bowel sounds are present CVS: Regular rate and rhythm. No murmurs, rubs or gallops Musculoskeletal: No joint or muscle tenderness Extremities: Non tender, no edema, peripheral pulses are present Neuro: Oriented, no tremors, no focal neurological deficits Skin: No rashes Results & Data ([facility]) Vital Signs (Past 12 Hours) Vital Signs Temp Pulse Pulse Pulse Resp BP BP 01/01/23 11:22 36.5 C 71 19 131/81 01/01/23 08:00 77 01/01/23 08:00 01/01/23 07:41 36.5 C 76 19 134/83 01/01/23 03:05 36.4 C L 78 20 122/74 Pulse Ox O2 Del Method O2 Flow Rate 01/01/23 11:22 99 Nasal Cannula 3 01/01/23 08:00 01/01/23 08:00 Nasal Cannula 3 01/01/23 07:41 94 Nasal Cannula 3 01/01/23 03:05 95 Nasal Cannula 3 Laboratory Results 01/01/23 06:47
--- NOTE | 2023-01-01 12:47 | Hospitalist Progress Note ---
Date of Service January 01, 2023 Assessment & Plan (1) Acute on chronic HFrEF (heart failure with reduced ejection fraction): Plan: ECHO showed EF 20-25% with global hypokinesis, previous ECHO in 2021 had showed EF 50-55%. Currently receiving hemodialysis for fluid management. Monitor intake and output. Low-sodium diet. Appreciate cardiology consultation and recommendations . Improving with dialysis (2) Cardiomyopathy: Plan: Known ischemic cardiomyopathy. Continue current medical management. Treat underlying CHF. Control heart rate. Telemetry (3) Acute respiratory failure with hypoxia: Plan: He had to be placed back on oxygen yesterday but hopefully this can be weaned off before discharge. Serial chest x-ray every 2 days until baseline is reached. Treat underlying CHF. (4) Atrial flutter with rapid ventricular response: Plan: He underwent electrical cardioversion on December 31. He is off the diltiazem drip. Appreciate cardiology consultation and recommendations. He is on amiodarone. Metoprolol frequency down titrated today, January 01. Entresto has been started today also. (5) Anemia: Plan: Probably a combination of acute blood loss from permacath palcement, ESRD, and also Iron def. Continue oral iron supplements. Serial labs. Transfuse as needed (6) COVID-19: Plan: Tested positive. No current evidence of viral pneumonia. Supportive care. Isolation precautions discontinued today January 01 (7) TANYA (acute kidney injury): Plan: Acute on chronic kidney disease stage V. Now end-stage renal disease on HD. Appreciate Nephrology input. Serial labs. He will have hemodialysis 3 times a week post discharge (8) Hyperkalemia: Plan: Corrected. Serial labs (9) Hyperlipidemia: Plan: Continue atorvastatin 40 mg p.o. daily (10) Type II diabetes mellitus: Plan: HbA1c 7.1 in August. Basal insulin therapy. Sliding scale coverage as needed. (11) CAD (coronary artery disease): Plan: S/p CABG x2 vessels (BOSTON to LAD, SVG to OM3) in 2010. Stable with current medical management including aspirin, metoprolol, Entresto , atorvastatin (12) CKD (chronic kidney disease) stage 4, GFR 15-29 ml/min: Plan: Now end-stage renal disease on HD. Monitor intake and output. Serial labs Plan Disposition: Anticipate eventual discharge to home . Possibly tomorrow, January 02 Admission and Anticipated Discharge Date Admission Date: December 19, 2022 Subjective Alert and oriented. No distress. Cardiology has recommended metoprolol at a lower frequency of dosing along with initiation of Entresto. He remains on amiodarone. After discharge, he will have hemodialysis 3 times a week. Hopefully oxygen can be weaned off before discharge. He might be able to go home tomorrJanuary 02 Review of Systems Review of Systems: Constitutional-no fever or chills ENT-no blurred vision, no double vision, no epistaxis, no sore throat Respiratory-no cough, no wheezing. Shortness of breath with exertion Cardiac-no palpitations, no chest pain, no syncope GI-no nausea, vomiting, diarrhea, melena, hematochezia -no urinary retention, no urinary incontinence, no dysuria, no hematuria Musculoskeletal-no joint pain, no muscle tenderness Skin-no bruising, no rashes, no pruritus Neuro-no isolated weakness, no paresthesia, no weakness Psych-no depression, no anxiety Physical Exam Physical Exam: General-alert and oriented x3, no fevers, no chills HEENT-head atraumatic and normocephalic, pupils equal and reactive to light, extraocular muscles intact Neck-no lymphadenopathy or thyromegaly, trachea midline Chest-diminished breath sounds bilaterally. No wheezing. No audible rales Cardiac-irregular rhythm, slightly tachycardic rate. Abdomen-normal bowel sounds, nontender, no hepatosplenomegaly Extremities-no cyanosis, clubbing. Chronic bilateral lower extremity edema Neuro-cranial nerves II through XII intact, motor and sensory function within normal limits, strength symmetrical , no focal deficits Psych-normal affect, normal mood Results & Data Results & Data ([facility]) Vital Signs (Past 12 Hours) Vital Signs Temp Pulse Pulse Pulse Resp BP BP 01/01/23 11:22 36.5 C 71 19 131/81 01/01/23 08:00 77 01/01/23 08:00 01/01/23 07:41 36.5 C 76 19 134/83 01/01/23 03:05 36.4 C L 78 20 122/74 Pulse Ox O2 Del Method O2 Flow Rate 01/01/23 11:22 99 Nasal Cannula 3 01/01/23 08:00 01/01/23 08:00 Nasal Cannula 3 01/01/23 07:41 94 Nasal Cannula 3 01/01/23 03:05 95 Nasal Cannula 3 Laboratory Results 12/31/22 06:45 01/01/23 06:47 PG Care Time/CCT Total # of Minutes Spent Total Time Spent with Patient: Total time spent is greater than 50% in coordination of care (as documented) at patient's floor/unit and/or counseling patient: Coding Level of Care Code 89969 SUB INP/OBS CARE 3/50MIN Diagnoses Acute on chronic HFrEF (heart failure with reduced ejection fraction) I50.23 Cardiomyopathy I42.9 Acute respiratory failure with hypoxia J96.01 Atrial flutter with rapid ventricular response I48.92 Anemia D64.9 COVID-19 U07.1 TANYA (acute kidney injury) N17.9 Hyperkalemia E87.5 Hyperlipidemia E78.5 Type II diabetes mellitus E11.9 CAD (coronary artery disease) I25.10 CKD (chronic kidney disease) stage 4, GFR 15-29 ml/min N18.4
[2023-01-01] MEDS: VENLAFAXINE HCL XR 75 MG CAPXR PO SCH (20:23)
[2023-01-01] MEDS: allopurinoL 300 MG TAB PO SCH (20:23)
[2023-01-01] MEDS: ATORVASTATIN 40 MG TAB PO SCH (20:24)
[2023-01-01] MEDS: TAMSULOSIN HCL 0.4 MG CAP PO SCH (20:24)
[2023-01-02 06:32] LABS: BUN Creatinine Ratio 4.6 (10-20); Calcium 8.5 mg/dl (8.5-10.1); Creatinine Clr Calc Pharmacy 14.1 ml/min; Est GFR (African American) 10.5 ml/min; Potassium 3.7 mmol/L (3.5-5.1)
[2023-01-02] MEDS ORDERED: EPOETIN ALFA 10,000 UNITS/ML VIAL IV ONE (07:00)
[2023-01-02] MEDS ORDERED: SODIUM CHLORIDE 0.9% 1000ML 1,000 ML IV PRN (07:00)
[2023-01-02] MEDS ORDERED: HEPARIN SOD (PORCINE) 1000 UNIT/ML IV ONE (07:00)
[2023-01-02] MEDS: INSULIN ASPART PER UNIT SC SCH ×4 (08:19→20:43)
--- NOTE | 2023-01-02 09:08 | Electrocardiogram Report ---
Test Reason : Blood Pressure : / mmHG Vent. Rate : 085 BPM Atrial Rate : 085 BPM P-R Int : 232 ms QRS Dur : 114 ms QT Int : 392 ms P-R-T Axes : 066 020 126 degrees QTc Int : 466 ms Sinus rhythm with 1st degree A-V block Septal infarct , age undetermined Abnormal ECG When compared with ECG of 21-DEC-2022 11:20, Atrial flutter with 2 to 1 block is no longer Present Nonspecific T wave abnormality has replaced inverted T waves in Inferior leads Confirmed by Darío Miller [id number] on 01/02/2023 9:08:09 AM Referred By: NO PCP Confirmed By:Darío Miller
[2023-01-02] MEDS: FERROUS SULFATE 325 MG TAB PO SCH ×2 (09:35→17:30)
--- NOTE | 2023-01-02 10:02 | Nephrology Progress Note ---
Date of Service January 02, 2023 Assessment & Plan (1) ESRD (end stage renal disease): Plan: now ESRD after TANYA on CKD 4; now on dialysis which we expect to be chronic ESRD d/t advanced vascular disease now w/ ischemic ATN in setting of COVID 19 infection and atrophied R kidney. Creatinine peaked at 5.6 from a baseline of mid threes October 2022. Patient also had metabolic acidosis and hyperkalemia with worsened heart failure, respiratory failure, and volume overload > first HD 12/22 after TDC placement same day -Monitor renal function with daily BMP -Avoid nephrotoxins such as contrast and NSAIDs. > plan dialysis today for 4 hours and -4 L . 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 No distress. Review of Systems Review of Systems: All other systems were reviewed and negative except as noted in HPI Physical Exam Physical Exam: General exam: Appears comfortable, no acute distress HEENT: Pupils are equal and reactive to light Neck: No JVD, neck is supple trachea is midline Respiratory system: Clear breath sounds bilaterally. Gastrointestinal: Abdomen is soft, non distended, non tender, bowel sounds are present CVS: Regular rate and rhythm. No murmurs, rubs or gallops Musculoskeletal: No joint or muscle tenderness Extremities: Non tender, no edema, peripheral pulses are present Results & Data ([facility]) Vital Signs (Past 12 Hours) Vital Signs Temp Pulse Pulse Pulse Pulse Resp BP 01/02/23 09:30 71 103/54 L 01/02/23 09:11 70 115/63 01/02/23 09:04 36.4 C L 73 01/02/23 08:00 01/02/23 07:39 37.0 C 75 19 01/02/23 03:18 36.4 C L 65 16 01/01/23 22:06 68 01/01/23 22:52 36.5 C 70 16 BP Pulse Ox O2 Del Method O2 Flow Rate 01/02/23 09:30 01/02/23 09:11 01/02/23 09:04 01/02/23 08:00 Room Air 01/02/23 07:39 119/75 97 Nasal Cannula 2 01/02/23 03:18 116/69 93 Nasal Cannula 1.5 01/01/23 22:06 01/01/23 22:52 98/52 L 94 Nasal Cannula 1.5 Laboratory Results 12/31/22 06:45 01/02/23 05:40
[2023-01-02] MEDS: HEPARIN SOD (PORCINE) 1000 UNIT/ML IV SCH ×3 (10:38→13:55)
--- NOTE | 2023-01-02 12:07 | Hospitalist Progress Note ---
Date of Service January 02, 2023 Assessment & Plan (1) Acute on chronic HFrEF (heart failure with reduced ejection fraction): Plan: ECHO showed EF 20-25% with global hypokinesis, previous ECHO in 2021 had showed EF 50-55%. Currently receiving hemodialysis for fluid management. He will need hemodialysis 3 times weekly going forward per nephrology. Monitor intake and output. Low-sodium diet. Appreciate cardiology consultation and recommendations . Most recent chest x-ray is now clear. He will need dialysis 3 times weekly going forward as an outpatient (2) Cardiomyopathy: Plan: Known ischemic cardiomyopathy. Continue current medical management. Treat underlying CHF. Control heart rate. Telemetry (3) Acute respiratory failure with hypoxia: Plan: Chest x-ray is now clear but he is still on 2 L of oxygen. Incentive spirometry ordered. Hopefully this can be discontinued prior to discharge. Treat underlying CHF. (4) Atrial flutter with rapid ventricular response: Plan: He underwent electrical cardioversion on December 31. He is off the diltiazem drip. Appreciate cardiology consultation and recommendations. He is on amiodarone. Metoprolol frequency down titrated on January 01. Entresto has been started. (5) Anemia: Plan: Probably a combination of acute blood loss from permacath palcement, ESRD, and also Iron def. Continue oral iron supplements. Serial labs. Transfuse as needed (6) COVID-19: Plan: Tested positive. No current evidence of viral pneumonia. Supportive care. Isolation precautions discontinued on January 01 (7) TANYA (acute kidney injury): Plan: Acute on chronic kidney disease stage V. Now end-stage renal disease on HD. Appreciate Nephrology input. Serial labs. He will have hemodialysis 3 times a week post discharge (8) Hyperkalemia: Plan: Corrected. Serial labs (9) Hyperlipidemia: Plan: Continue atorvastatin 40 mg p.o. daily (10) Type II diabetes mellitus: Plan: HbA1c 7.1 in August. Basal insulin therapy. Sliding scale coverage as needed. (11) CAD (coronary artery disease): Plan: S/p CABG x2 vessels (BOSTON to LAD, SVG to OM3) in 2010. Stable with current medical management including aspirin, metoprolol, Entresto , atorvastatin (12) CKD (chronic kidney disease) stage 4, GFR 15-29 ml/min: Plan: Now end-stage renal disease on HD. Monitor intake and output. Serial labs Plan Disposition: Anticipate eventual discharge to home . Probably on January 04 Admission and Anticipated Discharge Date Admission Date: December 19, 2022 Subjective The patient was seen in the dialysis unit. He is stable overall. Chest x-ray done January 01 was clear. He remains on 2 L oxygen. We will add incentive spirometry and hopefully this can be discontinued. Nephrology has indicated he will need hemodialysis 3 times a week. Case management is aware. He is now on amiodarone, metoprolol, Entresto. He was cardioverted on December 31. Hopefully home Wednesday Review of Systems Review of Systems: Constitutional-no fever or chills ENT-no blurred vision, no double vision, no epistaxis, no sore throat Respiratory-no cough, no wheezing. Shortness of breath with exertion Cardiac-no palpitations, no chest pain, no syncope GI-no nausea, vomiting, diarrhea, melena, hematochezia -no urinary retention, no urinary incontinence, no dysuria, no hematuria Musculoskeletal-no joint pain, no muscle tenderness Skin-no bruising, no rashes, no pruritus Neuro-no isolated weakness, no paresthesia, no weakness Psych-no depression, no anxiety Physical Exam Physical Exam: General-alert and oriented x3, no fevers, no chills HEENT-head atraumatic and normocephalic, pupils equal and reactive to light, extraocular muscles intact Neck-no lymphadenopathy or thyromegaly, trachea midline Chest-diminished breath sounds bilaterally. No wheezing. No audible rales Cardiac-irregular rhythm, slightly tachycardic rate. Abdomen-normal bowel sounds, nontender, no hepatosplenomegaly Extremities-no cyanosis, clubbing. Chronic bilateral lower extremity edema Neuro-cranial nerves II through XII intact, motor and sensory function within normal limits, strength symmetrical , no focal deficits Psych-normal affect, normal mood Results & Data Results & Data ([facility]) Vital Signs (Past 12 Hours) Vital Signs Temp Pulse Pulse Pulse Pulse Resp BP 01/02/23 11:30 54 L 87/53 L 01/02/23 11:00 101 H 145/79 H 01/02/23 10:30 55 L 106/46 L 01/02/23 10:00 70 93/61 L 01/02/23 09:30 71 103/54 L 01/02/23 09:11 70 115/63 01/02/23 09:04 36.4 C L 73 01/02/23 08:00 01/02/23 07:39 37.0 C 75 19 01/02/23 03:18 36.4 C L 65 16 BP Pulse Ox O2 Del Method O2 Flow Rate 01/02/23 11:30 01/02/23 11:00 01/02/23 10:30 01/02/23 10:00 01/02/23 09:30 01/02/23 09:11 01/02/23 09:04 01/02/23 08:00 Room Air 01/02/23 07:39 119/75 97 Nasal Cannula 2 01/02/23 03:18 116/69 93 Nasal Cannula 1.5 Laboratory Results 12/31/22 06:45 01/02/23 05:40 PG Care Time/CCT Total # of Minutes Spent Total Time Spent with Patient: Total time spent is greater than 50% in coordination of care (as documented) at patient's floor/unit and/or counseling patient: Coding Level of Care Code 70801 SUB INP/OBS CARE 3/50MIN Diagnoses Acute on chronic HFrEF (heart failure with reduced ejection fraction) I50.23 Cardiomyopathy I42.9 Acute respiratory failure with hypoxia J96.01 Atrial flutter with rapid ventricular response I48.92 Anemia D64.9 COVID-19 U07.1 TANYA (acute kidney injury) N17.9 Hyperkalemia E87.5 Hyperlipidemia E78.5 Type II diabetes mellitus E11.9 CAD (coronary artery disease) I25.10 CKD (chronic kidney disease) stage 4, GFR 15-29 ml/min N18.4
[2023-01-02] MEDS: AMIODARONE 200 MG TAB PO SCH ×2 (14:00→16:53)
[2023-01-02] MEDS: PANTOprazole 40 MG TAB PO SCH (14:00)
[2023-01-02] MEDS: APIXABAN 2.5 MG TAB PO SCH ×2 (14:00→20:45)
[2023-01-02] MEDS: traMADol HCL 50 MG TABLET PO SCH ×2 (14:00→21:25)
[2023-01-02] MEDS: METOPROLOL SUCC 50MG EXT REL TAB PO SCH (14:01)
[2023-01-02] MEDS: buPROPion SR 100 MG TABCR PO SCH (14:01)
[2023-01-02] MEDS: VALSARTAN/SACUBITRIL 26/24MG TAB PO SCH ×2 (14:01→21:16)
[2023-01-02] MEDS: POLYETHYLENE (MIRALAX) 17 GM PACK PO SCH (14:02)
[2023-01-02] MEDS: TAMSULOSIN HCL 0.4 MG CAP PO SCH (20:45)
[2023-01-02] MEDS: allopurinoL 300 MG TAB PO SCH (20:45)
[2023-01-02] MEDS: ATORVASTATIN 40 MG TAB PO SCH (20:45)
[2023-01-02] MEDS: VENLAFAXINE HCL XR 75 MG CAPXR PO SCH (20:45)
[2023-01-03] MEDS: LORazepam 0.5 MG TAB PO PRN (00:35)
[2023-01-03 08:33] LABS: BUN Creatinine Ratio 4.1 (10-20); Calcium 8.9 mg/dl (8.5-10.1); Creatinine Clr Calc Pharmacy 18.6 ml/min; Est GFR (African American) 14.6 ml/min; Est GFR (Non-African American) 12.6 ml/min; Potassium 4.2 mmol/L (3.5-5.1)
[2023-01-03] MEDS: FERROUS SULFATE 325 MG TAB PO SCH ×2 (08:36→17:27)
[2023-01-03] MEDS: AMIODARONE 200 MG TAB PO SCH ×2 (08:36→17:27)
[2023-01-03] MEDS: POLYETHYLENE (MIRALAX) 17 GM PACK PO SCH (08:37)
[2023-01-03] MEDS: METOPROLOL SUCC 50MG EXT REL TAB PO SCH (08:37)
[2023-01-03] MEDS: PANTOprazole 40 MG TAB PO SCH (08:37)
[2023-01-03] MEDS: buPROPion SR 100 MG TABCR PO SCH (08:37)
[2023-01-03] MEDS: traMADol HCL 50 MG TABLET PO SCH ×2 (08:37→20:24)
[2023-01-03] MEDS: APIXABAN 2.5 MG TAB PO SCH ×2 (08:37→20:25)
[2023-01-03] MEDS: INSULIN ASPART PER UNIT SC SCH ×4 (09:16→20:22)
[2023-01-03] MEDS: VALSARTAN/SACUBITRIL 26/24MG TAB PO SCH ×2 (09:17→20:25)
--- NOTE | 2023-01-03 11:53 | Hospitalist Progress Note ---
Date of Service January 03, 2023 Assessment & Plan (1) Acute on chronic HFrEF (heart failure with reduced ejection fraction): Plan: ECHO showed EF 20-25% with global hypokinesis, previous ECHO in 2021 had showed EF 50-55%. Currently receiving hemodialysis for fluid management. He will need hemodialysis 3 times weekly going forward per nephrology. Monitor intake and output. Low-sodium diet. Appreciate cardiology consultation and recommendations . Most recent chest x-ray is now clear. He will need dialysis 3 times weekly going forward as an outpatient (2) Cardiomyopathy: Plan: Known ischemic cardiomyopathy. Continue current medical management. Treat underlying CHF. Control heart rate. Telemetry (3) Acute respiratory failure with hypoxia: Plan: Chest x-ray is now clear but he is still on 2 L of oxygen. He is not ambulating and refuses to get out of bed. I suspect pulmonary atelectasis is playing a role. Incentive spirometry ordered. Hopefully this can be discontinued prior to discharge. Treat underlying CHF. (4) Atrial flutter with rapid ventricular response: Plan: He underwent electrical cardioversion on December 31. He is off the diltiazem drip. Appreciate cardiology consultation and recommendations. He is on amiodarone. Metoprolol frequency down titrated on January 01. Entresto has been started. Blood pressure is low normal but acceptable (5) Anemia: Plan: Probably a combination of acute blood loss from permacath palcement, ESRD, and also Iron def. Continue oral iron supplements. Serial labs. Transfuse as needed (6) COVID-19: Plan: Tested positive. No current evidence of viral pneumonia. Supportive care. Isolation precautions discontinued on January 01 (7) TANYA (acute kidney injury): Plan: Acute on chronic kidney disease stage V. Now end-stage renal disease on HD. Appreciate Nephrology input. Serial labs. He will have hemodialysis 3 times a week post discharge (8) Hyperkalemia: Plan: Corrected. Serial labs (9) Hyperlipidemia: Plan: Continue atorvastatin 40 mg p.o. daily (10) Type II diabetes mellitus: Plan: HbA1c 7.1 in August. Basal insulin therapy. Sliding scale coverage as needed. (11) CAD (coronary artery disease): Plan: S/p CABG x2 vessels (BOSTON to LAD, SVG to OM3) in 2010. Stable with current medical management including aspirin, metoprolol, Entresto , atorvastatin (12) CKD (chronic kidney disease) stage 4, GFR 15-29 ml/min: Plan: Now end-stage renal disease on HD. Monitor intake and output. Serial labs Plan Disposition: Anticipate eventual discharge to home . Probably on January 04. Hopefully oxygen can be weaned off prior to discharge Admission and Anticipated Discharge Date Admission Date: December 19, 2022 Subjective No new problems. Explained proper use of incentive spirometry. Trying to wean off oxygen before discharge. Hopefully home tomorrowJanuary 04 Review of Systems Review of Systems: Constitutional-no fever or chills ENT-no blurred vision, no double vision, no epistaxis, no sore throat Respiratory-no cough, no wheezing. Shortness of breath with exertion Cardiac-no palpitations, no chest pain, no syncope GI-no nausea, vomiting, diarrhea, melena, hematochezia -no urinary retention, no urinary incontinence, no dysuria, no hematuria Musculoskeletal-no joint pain, no muscle tenderness Skin-no bruising, no rashes, no pruritus Neuro-no isolated weakness, no paresthesia, no weakness Psych-no depression, no anxiety Physical Exam Physical Exam: General-alert and oriented x3, no fevers, no chills HEENT-head atraumatic and normocephalic, pupils equal and reactive to light, extraocular muscles intact Neck-no lymphadenopathy or thyromegaly, trachea midline Chest-diminished breath sounds bilaterally. No wheezing. No audible rales Cardiac-irregular rhythm, slightly tachycardic rate. Abdomen-normal bowel sounds, nontender, no hepatosplenomegaly Extremities-no cyanosis, clubbing. Chronic bilateral lower extremity edema Neuro-cranial nerves II through XII intact, motor and sensory function within normal limits, strength symmetrical , no focal deficits Psych-normal affect, normal mood Results & Data Results & Data ([facility]) Vital Signs (Past 12 Hours) Vital Signs Temp Pulse Pulse Resp BP Pulse Ox O2 Del Method 01/03/23 08:00 Nasal Cannula 01/03/23 07:21 36.6 C 71 19 95/61 L 97 Nasal Cannula 01/03/23 04:00 36.4 C L 74 18 94/60 L 97 Nasal Cannula O2 Flow Rate 01/03/23 08:00 3 01/03/23 07:21 2 03/12/23 04:00 3 Laboratory Results 12/31/22 06:45 01/03/23 06:48 PG Care Time/CCT Total # of Minutes Spent Total Time Spent with Patient: Total time spent is greater than 50% in coordination of care (as documented) at patient's floor/unit and/or counseling patient: Coding Level of Care Code 02845 SUB INP/OBS CARE 3/50MIN Diagnoses Acute on chronic HFrEF (heart failure with reduced ejection fraction) I50.23 Cardiomyopathy I42.9 Acute respiratory failure with hypoxia J96.01 Atrial flutter with rapid ventricular response I48.92 Anemia D64.9 COVID-19 U07.1 TANYA (acute kidney injury) N17.9 Hyperkalemia E87.5 Hyperlipidemia E78.5 Type II diabetes mellitus E11.9 CAD (coronary artery disease) I25.10 CKD (chronic kidney disease) stage 4, GFR 15-29 ml/min N18.4
[2023-01-03] MEDS ORDERED: SODIUM CHLORIDE 0.9% 1000ML 250 ML IV ONE (11:55)
[2023-01-03] MEDS: ONDANSETRON INJ 2 MG/ML 2 ML VIAL IV PRN (12:09)
[2023-01-03] MEDS: ATORVASTATIN 40 MG TAB PO SCH (20:25)
[2023-01-03] MEDS: VENLAFAXINE HCL XR 75 MG CAPXR PO SCH (20:25)
[2023-01-03] MEDS: allopurinoL 300 MG TAB PO SCH (20:25)
[2023-01-03] MEDS: TAMSULOSIN HCL 0.4 MG CAP PO SCH (20:25)
[2023-01-04] MEDS ORDERED: SODIUM CHLORIDE 0.9% 1000ML 250 ML IV ONE (04:08)
[2023-01-04 07:39] LABS: BUN Creatinine Ratio 4.7 (10-20); Calcium 8.7 mg/dl (8.5-10.1); Creatinine Clr Calc Pharmacy 13.7 ml/min; Est GFR (African American) 10.1 ml/min; Est GFR (Non-African American) 8.7 ml/min; Potassium 4.2 mmol/L (3.5-5.1)
[2023-01-04] MEDS ORDERED: SODIUM CHLORIDE 0.9% 1000ML 1,000 ML IV PRN (08:08)
[2023-01-04] MEDS: INSULIN ASPART PER UNIT SC SCH ×2 (08:26→15:34)
[2023-01-04] MEDS: VALSARTAN/SACUBITRIL 26/24MG TAB PO SCH (08:27)
[2023-01-04] MEDS: APIXABAN 2.5 MG TAB PO SCH (08:27)
[2023-01-04] MEDS: buPROPion SR 100 MG TABCR PO SCH (08:27)
[2023-01-04] MEDS: PANTOprazole 40 MG TAB PO SCH (08:28)
[2023-01-04] MEDS: FERROUS SULFATE 325 MG TAB PO SCH (08:28)
[2023-01-04] MEDS: AMIODARONE 200 MG TAB PO SCH ×2 (08:28→16:06)
[2023-01-04] MEDS: POLYETHYLENE (MIRALAX) 17 GM PACK PO SCH (08:32)
[2023-01-04] MEDS: traMADol HCL 50 MG TABLET PO SCH (08:36)
--- NOTE | 2023-01-04 09:43 | Nephrology Progress Note ---
Date of Service January 04, 2023 Assessment & Plan (1) ESRD (end stage renal disease): Plan: now ESRD after TANYA on CKD 4; now on dialysis which we expect to be chronic ESRD d/t advanced vascular disease now w/ ischemic ATN in setting of COVID 19 infection and atrophied R kidney. Creatinine peaked at 5.6 from a baseline of mid threes October 2022. Patient also had metabolic acidosis and hyperkalemia with worsened heart failure, respiratory failure, and volume overload > first HD 12/22 after TDC placement same day -Monitor renal function with daily BMP -Avoid nephrotoxins such as contrast and NSAIDs. > plan dialysis today for 4 hours and -4 L . >plan intermediate card tender is HHD at [facility] and near term in-center HD at [facility] (2) Systolic heart failure: Plan: >s/p cardioversion Admission and Anticipated Discharge Date Admission Date: December 19, 2022 Subjective No new problems. Comfortable, off oxygen Hopefully home today January 04 Review of Systems Review of Systems: All other systems were reviewed and negative except as noted in HPI Physical Exam Physical Exam: General exam: Appears comfortable, no acute distress HEENT: Pupils are equal and reactive to light Neck: No JVD, neck is supple trachea is midline Respiratory system: Clear breath sounds bilaterally. Gastrointestinal: Abdomen is soft, non distended, non tender, bowel sounds are present CVS: Regular rate and rhythm. No murmurs, rubs or gallops Musculoskeletal: No joint or muscle tenderness Extremities: Non tender, no edema, peripheral pulses are present Results & Data ([facility]) Vital Signs (Past 12 Hours) Vital Signs Temp Pulse Pulse Pulse Pulse Resp BP 01/04/23 07:40 75 01/04/23 07:40 01/04/23 07:30 36.9 C 69 19 107/69 01/04/23 04:35 117/53 L 01/04/23 03:54 71/48 L 01/04/23 03:44 36.8 C 77 16 70/41 L 01/03/23 23:04 36.6 C 79 20 96/58 L 01/04/23 00:05 80 Pulse Ox O2 Del Method O2 Flow Rate 01/04/23 07:40 01/04/23 07:40 Room Air 01/04/23 07:30 92 Room Air 01/04/23 04:35 01/04/23 03:54 03/13/23 03:44 93 Room Air 01/03/23 23:04 94 Nasal Cannula 2.0 01/04/23 00:05 Diagnostic Findings 12/31/22 06:45 01/04/23 06:35
[2023-01-04] MEDS: METOPROLOL SUCC 50MG EXT REL TAB PO SCH (16:04)
== END 2023-01-04 16:15 | disposition home or self-care (01) | DRG 291 ==
LOC: ED 13:04 → SUATTDRO 15:53 → 2S 15:53

== ENCOUNTER 2023-01-18 05:31 | Inpatient (IN) ==
[2023-01-18] MEDS ORDERED: dilTIAZem HCL 125 MG in DEXTROSE 5% 100 ML IV ONE (05:45)
[2023-01-18 06:07] LABS: Hematocrit (blood only) 29.3 % (42.0-52.0); Hemoglobin 9.1 g/dl (14.0-18.0); Mean Corpuscular Hemoglobin 29.7 pg (25.0-34.0); Mean Corpuscular Hgb Conc 31.1 g/dL (32.0-36.0); Mean Corpuscular Volume 95.8 fL (80.0-100.0); Mean Platelet Volume 12.7 fL (9.4-12.4); Platelet Count 164 K/uL (130-400); RDW Coefficient of Variation 16.9 % (11.5-14.5); RDW Standard Deviation 58.7 fL (36.4-46.3); Red Blood Count 3.06 M/uL (4.70-6.10)
[2023-01-18 06:18] LABS: Partial Thromboplastin Ratio 1.5; Partial Thromboplastin Time 42.1 Seconds (21.0-31.0); Prothrombin Time 20.3 Seconds (9.0-12.0)
[2023-01-18 06:21] LABS: iSTAT Creatinine 8.2 mg/dl (0.6-1.3); iSTAT Hemoglobin 10.2 g/dl (14.0-18.0); iSTAT Ionized Calcium 1.03 mmol/l (1.12-1.32); iSTAT Potassium 4.2 mmol/L (3.3-5.0)
[2023-01-18 06:30] LABS: Basophils # (auto) 0.03 K/uL (0-0.2); Basophils % (auto) 0.4 %; Immature Granulocytes # (auto) 0.09 K/uL (0.01-0.20); Immature Granulocytes % (auto) 1.1 %; Lymphocytes # (auto) 1.75 K/uL (1.2-3.4); Lymphocytes % (auto) 21.6 %; Monocytes # (auto) 0.38 K/uL (0.11-0.59); Monocytes % (auto) 4.7 %; Neutrophils # (auto) 5.85 K/uL (1.40-6.50); Neutrophils % (auto) 72.2 %; Ovalocytes 1+
--- NOTE | 2023-01-18 06:32 | Emergency Department Note ---
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 Tartrate (Metoprolol Tartrate 1 Mg/Ml Vial) 5 mg IV NOW STA Stop: 01/18/23 09:11 Last Admin: 01/18/23 09:15 Dose: 5 mg Documented By: KEVIN Miscellaneous (Stat Iv Infusion Titration Per Protocol) 1 each N/A NOW STA Stop: 01/18/23 08:31 Last Admin: 01/18/23 10:21 Dose: Not Given Documented By: JC Imaging Data Radiologist's Impression: Cervical Spine CT 01/18/23 05:43 Exam(s): CT C SPINE EXAM: CT Cervical Spine Without Intravenous Contrast CLINICAL HISTORY: Reason for exam: Fall. Neck pain. TECHNIQUE: Axial computed tomography images of the cervical spine without intravenous contrast. Automated exposure control was utilized for the study. A dose lowering technique was utilized adhering to the principles of ALARA. COMPARISON: No relevant prior studies available. FINDINGS: Vertebrae: Unremarkable. No acute fracture. Discs/spinal canal/neural foramina: Mild degenerative disc disease changes seen in the cervical spine. No spinal canal stenosis. Soft tissues: Unremarkable. IMPRESSION: No acute findings in the cervical spine. Electronically signed by: Gabino Hensley MD 01/18/23 06:[address] 01/18/23 05:43 Exam(s): CT FACIAL Without Contrast EXAM: CT Maxillofacial Without Intravenous Contrast CLINICAL HISTORY: Reason for exam: fall. TECHNIQUE: Axial computed tomography images of the face without intravenous contrast. Automated exposure control was utilized for the study. A dose lowering technique was utilized adhering to the principles of ALARA. COMPARISON: No relevant prior studies available. FINDINGS: Bones/joints: No acute fracture. Soft tissues: Soft tissues hematoma seen over the forehead 2.4 cm in diameter. Orbits: Unremarkable. Sinuses: Unremarkable. No air-fluid levels. IMPRESSION: 1. No acute facial fracture 2. Soft tissue hematoma over the forehead Electronically signed by: Gabino Hensley MD 01/18/23 07:[address] 01/18/23 05:44 Exam(s): CT HEAD Without Contrast EXAM: CT Head Without Intravenous Contrast CLINICAL HISTORY: Reason for exam: head injury, on thinners. TECHNIQUE: Axial computed tomography images of the head/brain without intravenous contrast. Automated exposure control was utilized for the study. A dose lowering technique was utilized adhering to the principles of ALARA. COMPARISON: No relevant prior studies available. FINDINGS: Brain: Chronic periventricular ischemic demolishing changes seen due to small vessel disease. No hemorrhage. Ventricles: Unremarkable. No ventriculomegaly. Bones/joints: Unremarkable. No acute fracture. Soft tissues: 2.4 cm soft tissue hematoma seen over the forehead. Sinuses: Unremarkable as visualized. No acute sinusitis. Mastoid air cells: Unremarkable as visualized. No mastoid effusion. IMPRESSION: 1. No acute intracranial abnormality 2. Soft tissue hematoma over the forehead Electronically signed by: Gabino Hensley MD 01/18/23 06:31 AM Chest X-Ray 01/18/23 06:41 SINGLE VIEW CHEST CLINICAL HISTORY: Dyspnea. FINDINGS: An AP, portable, upright chest radiograph is compared to study dated 01/01/2023. A right internal jugular central venous catheter is unchanged in position. The patient is status post midline sternotomy. The heart is enlarged noting atherosclerotic calcification of the thoracic aorta. There is pulmonary vascular congestion. Atelectasis is seen at the lung bases. The lungs and pleural spaces are otherwise clear. No pneumothorax is seen. The skeletal structures are osteopenic. The bony thorax is grossly intact. IMPRESSION: Cardiomegaly with pulmonary vascular congestion. ACT 112: Negative or not required by law. Electronically signed by: Lane Escobar M.D. 01/18/2023 6:51 AM Abdomen/Pelvis CT 01/18/23 07:09 CT SCAN OF THE CHEST, ABDOMEN, AND PELVIS WITH IV CONTRAST CLINICAL HISTORY: Fall. COMPARISON STUDY: Chest x-ray dated 01/18/2023. Abdominal CT dated 09/10/2020. TECHNIQUE: Following the IV administration of 94 of Optiray 350, CT scan of the chest, abdomen, and pelvis was performed from the thoracic inlet to the proximal femora. Images are reviewed in the axial, sagittal, and coronal planes. IV contrast was administered without complication. A dose lowering technique was utilized adhering to the principles of ALARA. CT DOSE: 2204.66 mGy.cm FINDINGS: CHEST: Thyroid: Imaged portions of the thyroid gland are normal in size and attenuation. Thoracic aorta: There is atherosclerotic calcification of the thoracic aorta, which is normal in caliber and demonstrates standard 3-vessel arch anatomy. No dissection is seen. Pulmonary vasculature: The pulmonary trunk is normal in caliber. There are no filling defects identified in the central pulmonary vessels to indicate pulmonary embolus. Note that this examination was not protocoled for evaluation of the pulmonary arteries. Heart: A right internal jugular central venous catheter is in place. The patient is status post midline sternotomy. The heart is enlarged and without pericardial effusion. The coronary arteries are densely calcified. Lungs and pleural spaces: Evaluation of the lung parenchyma is compromised by motion artifact. Emphysematous change is noted. The trachea and central airways are clear. No pneumothorax is seen. Interlobular septal thickening suggests fluid overload. There is trace left pleural effusion. Dependent atelectasis is present at both lung bases. There are numerous irregular nodular opacities scattered throughout both lungs. Subpleural opacities in the right lower lobe on images #144 and #163 measure 1.3 cm. Additional 5 mm nodular opacities are seen in the left upper lobe on image #91 and in the left lower lobe on image #105. Diffuse peribronchial thickening is observed. Mediastinum: There is no mediastinal hematoma or lymphadenopathy. Holly: Clear. Axillae: There is no axillary lymphadenopathy. Bony thorax: The skeletal structures are osteopenic. The bony thorax appears intact. There are chronic/healed bilateral rib fractures. No lytic or blastic lesions are identified. Degenerative change is seen in the shoulders and thoracic spine. Soft tissues: Gynecomastia is noted. ABDOMEN AND PELVIS: Liver: The contrast-enhanced liver is cirrhotic in morphology and heterogeneous attenuation. Attenuation is diminished suggesting steatosis. There is nodularity of the hepatic surface contour. There is no intrahepatic biliary ductal dilatation. The hepatic veins and portal veins are patent. Gallbladder: Surgically absent noting clips in the gallbladder fossa. Spleen: Normal in size and attenuation. Pancreas: Mildly atrophic and grossly unremarkable. Adrenal glands: A 3.5 cm myelolipoma arises from the left adrenal gland on image #147. This is unchanged. The right adrenal gland is normal in appearance. Kidneys: The contrast enhanced kidneys are atrophic and without hydronephrosis. The kidneys enhance symmetrically. A 4 mm nonobstructing calculus is seen on the left. Large left renal cyst measuring up to 7.7 cm. Additional subcentimeter cortical hypodensities also likely represent cysts but are too small for definitive characterization. Abdominal vasculature: The abdominal aorta is normal in course and caliber noting advanced atherosclerotic calcification. Stomach and bowel: A small hiatal hernia is noted. There is mild colonic diverticulosis without CT evidence of acute diverticulitis. No bowel obstruction is seen. There are small duodenal diverticula. The appendix is well-visualized and normal. Peritoneum: There is no intraperitoneal free air or abdominal ascites. There is asymmetric atrophy of the left psoas musculature. Lymphadenopathy: Prominent lymph nodes in the rob hepatis and portacaval region are likely related to chronic liver disease. These measure up to 12 mm in short axis. Pelvic viscera: Evaluation of the pelvis is degraded by streak artifact from a left hip arthroplasty. The prostate gland is diminutive and heterogeneous. The bladder wall is thickened/trabeculated indicating chronic outlet obstruction. Skeletal structures: The skeletal structures are osteopenic. The lumbosacral spine, bony pelvis, and proximal femora appear intact. There is moderate to advanced lumbosacral spondylosis. Postsurgical change is noted in the lumbar spine. No lytic or blastic lesions are seen. A left hip arthroplasty is in place. Periprostatic lucency suggests loosening. IMPRESSION: 1. There is no acute posttraumatic intrathoracic abnormality. 2. No pneumothorax. 3. Cardiomegaly and mild emphysema with evidence of fluid overload/mild congestive change. 4. Trace left pleural effusion. 5. Irregular nodular airspace opacities measure up to 13 mm. These are new from a [address] and may be related to edema. A follow-up chest CT in 3-4 months time is recommended to document resolution. 6. There is no evidence of solid organ injury in the abdomen or pelvis. 7. The liver is cirrhotic in morphology with evidence of steatosis. 8. Additional findings as above. ACT 112: Positive. There are findings on this exam that require communication between the performing entity and the patient following Patient Test Result Information Act ([place] Act 112) guidelines. Electronically signed by: Lane Escobar M.D. 01/18/2023 7:[address] 01/18/23 07:09 CT SCAN OF THE CHEST, ABDOMEN, AND PELVIS WITH IV CONTRAST CLINICAL HISTORY: Fall. COMPARISON STUDY: Chest x-ray dated 01/18/2023. Abdominal CT dated 09/10/2020. TECHNIQUE: Following the IV administration of 94 of Optiray 350, CT scan of the chest, abdomen, and pelvis was performed from the thoracic inlet to the proximal femora. Images are reviewed in the axial, sagittal, and coronal planes. IV contrast was administered without complication. A dose lowering technique was utilized adhering to the principles of ALARA. CT DOSE: 2204.66 mGy.cm FINDINGS: CHEST: Thyroid: Imaged portions of the thyroid gland are normal in size and attenuation. Thoracic aorta: There is atherosclerotic calcification of the thoracic aorta, which is normal in caliber and demonstrates standard 3-vessel arch anatomy. No dissection is seen. Pulmonary vasculature: The pulmonary trunk is normal in caliber. There are no filling defects identified in the central pulmonary vessels to indicate pulmonary embolus. Note that this examination was not protocoled for evaluation of the pulmonary arteries. Heart: A right internal jugular central venous catheter is in place. The patient is status post midline sternotomy. The heart is enlarged and without pericardial effusion. The coronary arteries are densely calcified. Lungs and pleural spaces: Evaluation of the lung parenchyma is compromised by motion artifact. Emphysematous change is noted. The trachea and central airways are clear. No pneumothorax is seen. Interlobular septal thickening suggests fluid overload. There is trace left pleural effusion. Dependent atelectasis is present at both lung bases. There are numerous irregular nodular opacities sc attered throughout both lungs. Subpleural opacities in the right lower lobe on images #144 and #163 measure 1.3 cm. Additional 5 mm nodular opacities are seen in the left upper lobe on image #91 and in the left lower lobe on image #105. Diffuse peribronchial thickening is observed. Mediastinum: There is no mediastinal hematoma or lymphadenopathy. Holly: Clear. Axillae: There is no axillary lymphadenopathy. Bony thorax: The skeletal structures are osteopenic. The bony thorax appears intact. There are chronic/healed bilateral rib fractures. No lytic or blastic lesions are identified. Degenerative change is seen in the shoulders and thoracic spine. Soft tissues: Gynecomastia is noted. ABDOMEN AND PELVIS: Liver: The contrast-enhanced liver is cirrhotic in morphology and heterogeneous attenuation. Attenuation is diminished suggesting steatosis. There is nodularity of the hepatic surface contour. There is no intrahepatic biliary ductal dilatation. The hepatic veins and portal veins are patent. Gallbladder: Surgically absent noting clips in the gallbladder fossa. Spleen: Normal in size and attenuation. Pancreas: Mildly atrophic and grossly unremarkable. Adrenal glands: A 3.5 cm myelolipoma arises from the left adrenal gland on image #147. This is unchanged. The right adrenal gland is normal in appearance. Kidneys: The contrast enhanced kidneys are atrophic and without hydronephrosis. The kidneys enhance symmetrically. A 4 mm nonobstructing calculus is seen on the left. Large left renal cyst measuring up to 7.7 cm. Additional subcentimeter cor tical hypodensities also likely represent cysts but are too small for definitive characterization. Abdominal vasculature: The abdominal aorta is normal in course and caliber noting advanced atherosclerotic calcification. Stomach and bowel: A small hiatal hernia is noted. There is mild colonic diverticulosis without CT evidence of acute diverticulitis. No bowel obstruction is seen. There are small duodenal diverticula. The appendix is well-visualized and normal. Peritoneum: There is no intraperitoneal free air or abdominal ascites. There is asymmetric atrophy of the left psoas musculature. Lymphadenopathy: Prominent lymph nodes in the rob hepatis and portacaval region are likely related to chronic liver disease. These measure up to 12 mm in short axis. Pelvic viscera: Evaluation of the pelvis is degraded by streak artifact from a left hip arthroplasty. The prostate gland is diminutive and heterogeneous. The bladder wall is thickened/trabeculated indicating chronic outlet obstruction. Skeletal structures: The skeletal structures are osteopenic. The lumbosacral spine, bony pelvis, and proximal femora appear intact. There is moderate to advanced lumbosacral spondylosis. Postsurgical change is noted in the lumbar spine. No lytic or blastic lesions are seen. A left hip arthroplasty is in place. Periprostatic lucency suggests loosening. IMPRESSION: 1. There is no acute posttraumatic intrathoracic abnormality. 2. No pneumothorax. 3. Cardiomegaly and mild emphysema with evidence of fluid overload/mild conge stive change. 4. Trace left pleural effusion. 5. Irregular nodular airspace opacities measure up to 13 mm. These are new from a [address] and may be related to edema. A follow-up chest CT in 3-4 months time is recommended to document resolution. 6. There is no evidence of solid organ injury in the abdomen or pelvis. 7. The liver is cirrhotic in morphology with evidence of steatosis. 8. Additional findings as above. ACT 112: Positive. There are findings on this exam that require communication between the performing entity and the patient following Patient Test Result Information Act ([place] Act 112) guidelines. Electronically signed by: Lane Escobar M.D. 01/18/2023 7:59 AM Discharge Plan Visit Data Chief Complaint: Fall Stated Complaint: Lower Back Pain ED Provider: Luis Armando Melgoza Discharge Problem: V-tach, Syncope, Transaminitis Patient Disposition: Admitted As Inpatient Discharge Instructions Interventions: ED Discharge Assessment Last Done: 01/18/23 10:09
--- NOTE | 2023-01-18 06:40 | CT Scan Report ---
Exam(s): CT C SPINE EXAM: CT Cervical Spine Without Intravenous Contrast CLINICAL HISTORY: Reason for exam: Fall. Neck pain. TECHNIQUE: Axial computed tomography images of the cervical spine without intravenous contrast. Automated exposure control was utilized for the study. A dose lowering technique was utilized adhering to the principles of ALARA. COMPARISON: No relevant prior studies available. FINDINGS: Vertebrae: Unremarkable. No acute fracture. Discs/spinal canal/neural foramina: Mild degenerative disc disease changes seen in the cervical spine. No spinal canal stenosis. Soft tissues: Unremarkable. IMPRESSION: No acute findings in the cervical spine. Electronically signed by: Gabino Hensley MD 01/18/23 06:40 AM
[2023-01-18 06:44] LABS: Albumin Globulin Ratio 0.9 (0.9-2); Albumin Level 2.9 gm/dl (3.4-5.0); BUN Creatinine Ratio 5.5 (10-20); Bilirubin,Total 1.1 mg/dl (0.2-1.0); Calcium 8.5 mg/dl (8.6-10.3); Creatinine Clr Calc Pharmacy 11.2 ml/min; Est GFR (African American) 7.9 ml/min; Est GFR (Non-African American) 6.8 ml/min; Globulin 3.3 gm/dl (2.5-4.0); Potassium 4.3 mmol/L (3.5-5.1); Total Protein 6.2 gm/dl (6.0-8.3); Troponin I High Sensitivity 2275.4 pg/ml (0-20)
--- NOTE | 2023-01-18 06:52 | XRay Report ---
SINGLE VIEW CHEST CLINICAL HISTORY: Dyspnea. FINDINGS: An AP, portable, upright chest radiograph is compared to study dated 01/01/2023. A right int ernal jugular central venous catheter is unchanged in position. The patient is status post midline st ernotomy. The heart is enlarged noting atherosclerotic calcification of the thoracic aorta. There is pulmonary vascular congestion. Atelectasis is seen at the lung bases. The lungs and pleural spaces ar e otherwise clear. No pneumothorax is seen. The skeletal structures are osteopenic. The bony thorax i s grossly intact. IMPRESSION: Cardiomegaly with pulmonary vascular congestion. ACT 112: Negative or not required by law. Electronically signed by: Lane Escobar M.D. 01/18/2023 6:51 AM
--- NOTE | 2023-01-18 07:01 | CT Scan Report ---
Exam(s): CT FACIAL Without Contrast EXAM: CT Maxillofacial Without Intravenous Contrast CLINICAL HISTORY: Reason for exam: fall. TECHNIQUE: Axial computed tomography images of the face without intravenous contrast. Automated exposure control was utilized for the study. A dose lowering technique was utilized adhering to the principles of ALARA. COMPARISON: No relevant prior studies available. FINDINGS: Bones/joints: No acute fracture. Soft tissues: Soft tissues hematoma seen over the forehead 2.4 cm in diameter. Orbits: Unremarkable. Sinuses: Unremarkable. No air-fluid levels. IMPRESSION: 1. No acute facial fracture 2. Soft tissue hematoma over the forehead Electronically signed by: Gabino Hensley MD 01/18/23 07:00 AM
[2023-01-18] MEDS ORDERED: OPTIRAY 350 100ml IV ONE (07:25)
--- NOTE | 2023-01-18 08:01 | CT Scan Report ---
CT SCAN OF THE CHEST, ABDOMEN, AND PELVIS WITH IV CONTRAST CLINICAL HISTORY: Fall. COMPARISON STUDY: Chest x-ray dated 01/18/2023. Abdominal CT dated 09/10/2020. TECHNIQUE: Following the IV administration of 94 of Optiray 350, CT scan of the chest, abdomen, and p ara was performed from the thoracic inlet to the proximal femora. Images are reviewed in the axial, sagittal, and coronal planes. IV contrast was administered without complication. A dose lowering te chnique was utilized adhering to the principles of ALARA. CT DOSE: 2204.66 mGy.cm FINDINGS: CHEST: Thyroid: Imaged portions of the thyroid gland are normal in size and attenuation. Thoracic aorta: There is atherosclerotic calcification of the thoracic aorta, which is normal in jaylen susan and demonstrates standard 3-vessel arch anatomy. No dissection is seen. Pulmonary vasculature: The pulmonary trunk is normal in caliber. There are no filling defects identif ied in the central pulmonary vessels to indicate pulmonary embolus. Note that this examination was no t protocoled for evaluation of the pulmonary arteries. Heart: A right internal jugular central venous catheter is in place. The patient is status post midli ne sternotomy. The heart is enlarged and without pericardial effusion. The coronary arteries are dens berkley calcified. Lungs and pleural spaces: Evaluation of the lung parenchyma is compromised by motion artifact. Emphys ematous change is noted. The trachea and central airways are clear. No pneumothorax is seen. Interlob ular septal thickening suggests fluid overload. There is trace left pleural effusion. Dependent atele ctasis is present at both lung bases. There are numerous irregular nodular opacities scattered throug hout both lungs. Subpleural opacities in the right lower lobe on images #144 and #163 measure 1.3 cm. Additional 5 mm nodular opacities are seen in the left upper lobe on image #91 and in the left lower lobe on image #105. Diffuse peribronchial thickening is observed. Mediastinum: There is no mediastinal hematoma or lymphadenopathy. Holly: Clear. Axillae: There is no axillary lymphadenopathy. Bony thorax: The skeletal structures are osteopenic. The bony thorax appears intact. There are chroni c/healed bilateral rib fractures. No lytic or blastic lesions are identified. Degenerative change is seen in the shoulders and thoracic spine. Soft tissues: Gynecomastia is noted. ABDOMEN AND PELVIS: Liver: The contrast-enhanced liver is cirrhotic in morphology and heterogeneous attenuation. Attenuat ion is diminished suggesting steatosis. There is nodularity of the hepatic surface contour. There is no intrahepatic biliary ductal dilatation. The hepatic veins and portal veins are patent. Gallbladder: Surgically absent noting clips in the gallbladder fossa. Spleen: Normal in size and attenuation. Pancreas: Mildly atrophic and grossly unremarkable. Adrenal glands: A 3.5 cm myelolipoma arises from the left adrenal gland on image #147. This is unchan ged. The right adrenal gland is normal in appearance. Kidneys: The contrast enhanced kidneys are atrophic and without hydronephrosis. The kidneys enhance s ymmetrically. A 4 mm nonobstructing calculus is seen on the left. Large left renal cyst measuring up to 7.7 cm. Additional subcentimeter cortical hypodensities also likely represent cysts but are too sm all for definitive characterization. Abdominal vasculature: The abdominal aorta is normal in course and caliber noting advanced atheroscle rotic calcification. Stomach and bowel: A small hiatal hernia is noted. There is mild colonic diverticulosis without CT ev idence of acute diverticulitis. No bowel obstruction is seen. There are small duodenal diverticula. T he appendix is well-visualized and normal. Peritoneum: There is no intraperitoneal free air or abdominal ascites. There is asymmetric atrophy of the left psoas musculature. Lymphadenopathy: Prominent lymph nodes in the rob hepatis and portacaval region are likely related to chronic liver disease. These measure up to 12 mm in short axis. Pelvic viscera: Evaluation of the pelvis is degraded by streak artifact from a left hip arthroplasty. The prostate gland is diminutive and heterogeneous. The bladder wall is thickened/trabeculated indic ating chronic outlet obstruction. Skeletal structures: The skeletal structures are osteopenic. The lumbosacral spine, bony pelvis, and proximal femora appear intact. There is moderate to advanced lumbosacral spondylosis. Postsurgical ch amadeo is noted in the lumbar spine. No lytic or blastic lesions are seen. A left hip arthroplasty is i n place. Periprostatic lucency suggests loosening. IMPRESSION: 1. There is no acute posttraumatic intrathoracic abnormality. 2. No pneumothorax. 3. Cardiomegaly and mild emphysema with evidence of fluid overload/mild congestive change. 4. Trace left pleural effusion. 5. Irregular nodular airspace opacities measure up to 13 mm. These are new from a [address] a nd may be related to edema. A follow-up chest CT in 3-4 months time is recommended to document resolu tion. 6. There is no evidence of solid organ injury in the abdomen or pelvis. 7. The liver is cirrhotic in morphology with evidence of steatosis. 8. Additional findings as above. ACT 112: Positive. There are findings on this exam that require communication between the performing entity and the patient following Patient Test Result Information Act ([place] Act 112) guidelines. Electronically signed by: Lane Escobar M.D. 01/18/2023 7:59 AM
[2023-01-18] MEDS ORDERED: AMIODARONE 360MG / 200ML D5W IV ONE (08:27)
[2023-01-18] MEDS ORDERED: AMIODARONE 150MG / 100ML D5W IV ONE (08:27)
[2023-01-18] MEDS ORDERED: 0.2 MICRON FILTER SET 1 EACH IV STA (08:30)
[2023-01-18] MEDS ORDERED: AMIODARONE / D5W 150 MG/100 ML BAG IV STA (08:30)
[2023-01-18] MEDS ORDERED: STAT IV Infusion **Titration per Protocol STA ×3 (08:30→19:41)
[2023-01-18] MEDS ORDERED: AMIODARONE IV BOLUS & DRIP IV STA (08:30)
[2023-01-18] MEDS ORDERED: AMIODARONE / D5W 360 MG/200 ML BAG IV ONE (08:40)
[2023-01-18] MEDS ORDERED: FUROSEMIDE 40 MG/4 ML VIAL IV ONE (08:45)
--- NOTE | 2023-01-18 08:59 | History & Physical Report ---
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 ductal dilatation. The hepatic veins and portal veins are patent. Gallbladder: Surgically absent noting clips in the gallbladder fossa. Spleen: Normal in size and attenuation. Pancreas: Mildly atrophic and grossly unremarkable. Adrenal glands: A 3.5 cm myelolipoma arises from the left adrenal gland on image #147. This is unchanged. The right adrenal gland is normal in appearance. Kidneys: The contrast enhanced kidneys are atrophic and without hydronephrosis. The kidneys enhance symmetrically. A 4 mm nonobstructing calculus is seen on the left. Large left renal cyst measuring up to 7.7 cm. Additional subcentimeter cortical hypodensities also likely represent cysts but are too small for definitive characterization. Abdominal vasculature: The abdominal aorta is normal in course and caliber noting advanced atherosclerotic calcification. Stomach and bowel: A small hiatal hernia is noted. There is mild colonic diverticulosis without CT evidence of acute diverticulitis. No bowel obstruction is seen. There are small duodenal diverticula. The appendix is well-visualized and normal. Peritoneum: There is no intraperitoneal free air or abdominal ascites. There is asymmetric atrophy of the left psoas musculature. Lymphadenopathy: Prominent lymph nodes in the rob hepatis and portacaval region are likely related to chronic liver disease. These measure up to 12 mm in short axis. Pelvic viscera: Evaluation of the pelvis is degraded by streak artifact from a left hip arthroplasty. The prostate gland is diminutive and heterogeneous. The bladder wall is thickened/trabeculated indicating chronic outlet obstruction. Skeletal structures: The skeletal structures are osteopenic. The lumbosacral spine, bony pelvis, and proximal femora appear intact. There is moderate to advanced lumbosacral spondylosis. Postsurgical change is noted in the lumbar spine. No lytic or blastic lesions are seen. A left hip arthroplasty is in place. Periprostatic lucency suggests loosening. IMPRESSION: 1. There is no acute posttraumatic intrathoracic abnormality. 2. No pneumothorax. 3. Cardiomegaly and mild emphysema with evidence of fluid overload/mild congestive change. 4. Trace left pleural effusion. 5. Irregular nodular airspace opacities measure up to 13 mm. These are new from a [address] and may be related to edema. A follow-up chest CT in 3-4 months time is recommended to document resolution. 6. There is no evidence of solid organ injury in the abdomen or pelvis. 7. The liver is cirrhotic in morphology with evidence of steatosis. 8. Additional findings as above. ACT 112: Positive. There are findings on this exam that require communication between the performing entity and the patient following Patient Test Result Information Act ([place] Act 112) guidelines. Electronically signed by: Lane Escobar M.D. 01/18/2023 7:[address] 01/18/23 07:09 CT SCAN OF THE CHEST, ABDOMEN, AND PELVIS WITH IV CONTRAST CLINICAL HISTORY: Fall. COMPARISON STUDY: Chest x-ray dated 01/18/2023. Abdominal CT dated 09/10/2020. TECHNIQUE: Following the IV administration of 94 of Optiray 350, CT scan of the chest, abdomen, and pelvis was performed from the thoracic inlet to the proximal femora. Images are reviewed in the axial, sagittal, and coronal planes. IV contrast was administered without complication. A dose lowering technique was utilized adhering to the principles of ALARA. CT DOSE: 2204.66 mGy.cm FINDINGS: CHEST: Thyroid: Imaged portions of the thyroid gland are normal in size and attenuation. Thoracic aorta: There is atherosclerotic calcification of the thoracic aorta, which is normal in caliber and demonstrates standard 3-vessel arch anatomy. No dissection is seen. Pulmonary vasculature: The pulmonary trunk is normal in caliber. There are no filling defects identified in the central pulmonary vessels to indicate pulmonary embolus. Note that this examination was not protocoled for evaluation of the pulmonary arteries. Heart: A right internal jugular central venous catheter is in place. The patient is status post midline sternotomy. The heart is enlarged and without pericardial effusion. The coronary arteries are densely calcified. Lungs and pleural spaces: Evaluation of the lung parenchyma is compromised by motion artifact. Emphysematous change is noted. The trachea and central airways are clear. No pneumothorax is seen. Interlobular septal thickening suggests fluid overload. There is trace left pleural effusion. Dependent atelectasis is present at both lung bases. There are numerous irregular nodular opacities scattered throughout both lungs. Subpleural opacities in the right lower lobe on images #144 and #163 measure 1.3 cm. Additional 5 mm nodular opacities are seen in the left upper lobe on image #91 and in the left lower lobe on image #105. Diffuse peribronchial thickening is observed. Mediastinum: There is no mediastinal hematoma or lymphadenopathy. Holly: Clear. Axillae: There is no axillary lymphadenopathy. Bony thorax: The skeletal structures are osteopenic. The bony thorax appears intact. There are chronic/healed bilateral rib fractures. No lytic or blastic lesions are identified. Degenerative change is seen in the shoulders and thoracic spine. Soft tissues: Gynecomastia is noted. ABDOMEN AND PELVIS: Liver: The contrast-enhanced liver is cirrhotic in morphology and heterogeneous attenuation. Attenuation is diminished suggesting steatosis. There is nodularity of the hepatic surface contour. There is no intrahepatic biliary ductal dilatation. The hepatic veins and portal veins are patent. Gallbladder: Surgically absent noting clips in the gallbladder fossa. Spleen: Normal in size and attenuation. Pancreas: Mildly atrophic and grossly unremarkable. Adrenal glands: A 3.5 cm myelolipoma arises from the left adrenal gland on image #147. This is unchanged. The right adrenal gland is normal in appearance. Kidneys: The contrast enhanced kidneys are atrophic and without hydronephrosis. The kidneys enhance symmetrically. A 4 mm nonobstructing calculus is seen on the left. Large left renal cyst measuring up to 7.7 cm. Additional subcentimeter cortical hypodensities also likely represent cysts but are too small for d efinitive characterization. Abdominal vasculature: The abdominal aorta is normal in course and caliber noting advanced atherosclerotic calcification. Stomach and bowel: A small hiatal hernia is noted. There is mild colonic diverticulosis without CT evidence of acute diverticulitis. No bowel obstruction is seen. There are small duodenal diverticula. The appendix is well-visualized and normal. Peritoneum: There is no intraperitoneal free air or abdominal ascites. There is asymmetric atrophy of the left psoas musculature. Lymphadenopathy: Prominent lymph nodes in the rob hepatis and portacaval region are likely related to chronic liver disease. These measure up to 12 mm in short axis. Pelvic viscera: Evaluation of the pelvis is degraded by streak artifact from a left hip arthroplasty. The prostate gland is diminutive and heterogeneous. The bladder wall is thickened/trabeculated indicating chronic outlet obstruction. Skeletal structures: The skeletal structures are osteopenic. The lumbosacral spine, bony pelvis, and proximal femora appear intact. There is moderate to advanced lumbosacral spondylosis. Postsurgical change is noted in the lumbar spine. No lytic or blastic lesions are seen. A left hip arthroplasty is in place. Periprostatic lucency suggests loosening. IMPRESSION: 1. There is no acute posttraumatic intrathoracic abnormality. 2. No pneumothorax. 3. Cardiomegaly and mild emphysema with evidence of fluid overload/mild congestive change. 4. Trace left pleural effusion. 5. Irregular nodular airspace opacities measure up to 13 mm. These are new from a [address] and may be related to edema. A follow-up chest CT in 3-4 months time is recommended to document resolution. 6. There is no evidence of solid organ injury in the abdomen or pelvis. 7. The liver is cirrhotic in morphology with evidence of steatosis. 8. Additional findings as above. ACT 112: Positive. There are findings on this exam that require communication b etween the performing entity and the patient following Patient Test Result Information Act ([place] Act 112) guidelines. Electronically signed by: Lane Escobar M.D. 01/18/2023 7:59 AM Supervising Physician Co-Signing Physician Notes Patient seen and examined, chart reviewed, case discussed with Dia Cisneros PA-C and I agree with the assessment and plan as above except as otherwise noted Labs and images reviewed Edgar is a 62-year-old male with past medical history of CHF with EF approximately 30%, ESRD on dialysis, DM, hyperlipidemia, hypertension, carotid stenosis, obesity, and peripheral artery disease who presented to the hospital for evaluation of fatigue and weakness with a fall causing him to strike his head. While in the ER patient experienced an episode of sustained monomorphic ventricular tachycardia which converted to A-fib with RVR following amnio bolus/drip. Patient had previously been treated with diltiazem for 2 hours for A-fib RVR with gtt.; this was discontinued for hypotension prior to episode of VT. Prior to hospitalization patient had several medications which were adjusted due to hypotension including amiodarone decreased from twice daily to 200 mg daily, discontinuing beta-blockers, and reportedly was to not take Entresto on dialysis days but per patient has not been taking Entresto at all. At bedside patient is with a left forehead hematoma without signs of worsening expansion. He is mentating and does not have chest pain or chest pressure, is not diaphoretic. Lungs are diminished, heart rate is irregular and tachycardic IV metoprolol 5 mg was given, and patient was transferred to the ICU. Calcium repletion was given, magnesium was 2.0 and 1 g was ordered. Potassium was normal. cardiology consulted for additional medication management, and evaluation for ICD given his VT and high risk of arrhythmia with EF previously 25-30% now 20-25%. Agree with recommendations of management as noted above. PG Care Time/CCT Total # of Minutes Spent Total Time Spent with Patient: Total time spent is greater than 50% in coordination of care (as documented) at patient's floor/unit and/or counseling patient: Coding Level of Care Code 50091 INT INP/OBS CARE 3/75MIN Diagnoses Atrial fibrillation with RVR I48.91 V-tach I47.20 Acute on chronic HFrEF (heart failure with reduced ejection fraction) I50.23 Weakness R53.1 Fall W19.XXXA CAD (coronary artery disease) I25.10 Cardiomyopathy I42.9 Paroxysmal atrial flutter I48.92 ESRD (end stage renal disease) N18.6 Hemodialysis catheter malfunction T82.41XA CKD (chronic kidney disease) stage 4, GFR 15-29 ml/min N18.4 Type II diabetes mellitus E11.9 Cirrhosis K74.60 Abnormal finding on lung imaging R91.8
[2023-01-18] MEDS ORDERED: METOPROLOL TARTRATE 1 MG/ML VIAL IV STA ×2 (09:10→12:26)
[2023-01-18 09:31] LABS: Appearance Urine Cloudy (Clear); Blood Urine Negative (Negative); Color Urine Dark Yellow; Epithelial Cell Urine Auto >30 /lpf (0-5); Glucose Urine UA Negative (Negative); Ketones Urine Trace (Negative); Leukocyte Esterase Urine Negative (Negative); Nitrite Urine Negative (Negative); Protein Urine 2+ (Negative); RBC Urine Automated 0-4 /hpf (0-4); Specific Gravity Urine 1.023 (1.000-1.030); Urobilinogen Urine Negative (Negative)
[2023-01-18] MEDS ORDERED: CALCIUM GLUCONATE 1,000 MG/60 ML BAG IV STA (09:37)
[2023-01-18 09:49] LABS: Bilirubin Urine 1+ (Negative)
[2023-01-18] MEDS ORDERED: APIXABAN 2.5 MG TAB PO SCH (10:19)
[2023-01-18] MEDS ORDERED: NYSTATIN CR 15 GM TUBE EXT PRN (10:19)
[2023-01-18] MEDS ORDERED: MAGNESIUM SULFATE / D5W 1 GM/100 ML BAG IV ONE (10:19)
[2023-01-18] MEDS ORDERED: METOPROLOL TARTRATE 1 MG/ML VIAL IV PRN (10:19)
[2023-01-18 10:26] LABS: Bacteria Urine Automated 1+ (Negative); Sperm Urine Present (None Prsent)
[2023-01-18] MEDS ORDERED: PANTOprazole 40 MG TAB PO SCH (10:30)
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
--- NOTE | 2023-01-18 11:35 | Gastrointestinal Consultation ---
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 overload. There is trace left pleural effusion. Dependent atelectasis is present at both lung bases. There are numerous irregular nodular opacities scattered throughout both lungs. Subpleural opacities in the right lower lobe on images #144 and #163 measure 1.3 cm. Additional 5 mm nodular opacities are seen in the left upper lobe on image #91 and in the left lower lobe on image #105. Diffuse peribronchial thickening is observed. Mediastinum: There is no mediastinal hematoma or lymphadenopathy. Holly: Clear. Axillae: There is no axillary lymphadenopathy. Bony thorax: The skeletal structures are osteopenic. The bony thorax appears intact. There are chronic/healed bilateral rib fractures. No lytic or blastic lesions are identified. Degenerative change is seen in the shoulders and thoracic spine. Soft tissues: Gynecomastia is noted. ABDOMEN AND PELVIS: Liver: The contrast-enhanced liver is cirrhotic in morphology and heterogeneous attenuation. Attenuation is diminished suggesting steatosis. There is nodularity of the hepatic surface contour. There is no intrahepatic biliary ductal dilatation. The hepatic veins and portal veins are patent. Gallbladder: Surgically absent noting clips in the gallbladder fossa. Spleen: Normal in size and attenuation. Pancreas: Mildly atrophic and grossly unremarkable. Adrenal glands: A 3.5 cm myelolipoma arises from the left adrenal gland on image #147. This is unchanged. The right adrenal gland is normal in appearance. Kidneys: The contrast enhanced kidneys are atrophic and without hydronephrosis. The kidneys enhance symmetrically. A 4 mm nonobstructing calculus is seen on the left. Large left renal cyst measuring up to 7.7 cm. Additional subcentimeter cortical hypodensities also likely represent cysts but are too small for definitive characterization. Abdominal vasculature: The abdominal aorta is normal in course and caliber noting advanced atherosclerotic calcification. Stomach and bowel: A small hiatal hernia is noted. There is mild colonic diverticulosis without CT evidence of acute diverticulitis. No bowel obstruction is seen. There are small duodenal diverticula. The appendix is well-visualized and normal. Peritoneum: There is no intraperitoneal free air or abdominal ascites. There is asymmetric atrophy of the left psoas musculature. Lymphadenopathy: Prominent lymph nodes in the rob hepatis and portacaval region are likely related to chronic liver disease. These measure up to 12 mm in short axis. Pelvic viscera: Evaluation of the pelvis is degraded by streak artifact from a left hip arthroplasty. The prostate gland is diminutive and heterogeneous. The bladder wall is thickened/trabeculated indicating chronic outlet obstruction. Skeletal structures: The skeletal structures are osteopenic. The lumbosacral spine, bony pelvis, and proximal femora appear intact. There is moderate to advanced lumbosacral spondylosis. Postsurgical change is noted in the lumbar spine. No lytic or blastic lesions are seen. A left hip arthroplasty is in place. Periprostatic lucency suggests loosening. IMPRESSION: 1. There is no acute posttraumatic intrathoracic abnormality. 2. No pneumothorax. 3. Cardiomegaly and mild emphysema with evidence of fluid overload/mild congestive change. 4. Trace left pleural effusion. 5. Irregular nodular airspace opacities measure up to 13 mm. These are new from a [address] and may be related to edema. A follow-up chest CT in 3-4 months time is recommended to document resolution. 6. There is no evidence of solid organ injury in the abdomen or pelvis. 7. The liver is cirrhotic in morphology with evidence of steatosis. 8. Additional findings as above. ACT 112: Positive. There are findings on this exam that require communication between the performing entity and the patient following Patient Test Result Information Act ([place] Act 112) guidelines. Electronically signed by: Lane Escobar M.D. 01/18/2023 7:59 AM PG Care Time/CCT Total # of Minutes Spent Total Time Spent with Patient: Total time spent is greater than 50% in coordination of care (as documented) at patient's floor/unit and/or counseling patient: Coding Level of Care Code 13842 INT INP/OBS CARE 3/75MIN Diagnoses Cirrhosis K74.60 Atrial fibrillation with RVR I48.91 Acute on chronic HFrEF (heart failure with reduced ejection fraction) I50.23
--- NOTE | 2023-01-18 11:38 | XCELERA ---
[id number]
[2023-01-18 11:45] LABS: iSTAT Allen Test Pass; iSTAT Art Bld Gas pCO2 Correct 52 mmHg (35-46); iSTAT Art Bld Gas pH Corrected 7.395 (7.35-7.45); iSTAT Arterial Blood Gas HCO3 32 meg/L (19-24); iSTAT Arterial Blood Gas pCO2 52 mmHg (35-46); iSTAT Arterial Blood Gas pH 7.39 (7.35-7.45); iSTAT Arterial Blood Gas pO2 < 32 mmHg (80-95); iSTAT Arterial Blood Gas pO2 C 22; iSTAT Carbon Dioxide 33 mmol/L (24-31); iSTAT Hematocrit 27 % (42-52); iSTAT Hemoglobin 9.2 g/dl (14.0-18.0); iSTAT Potassium 4.1 mmol/L (3.3-5.0); iSTAT Site R Radial; iSTAT Sodium 128 mmol/L (135-144)
--- NOTE | 2023-01-18 11:46 | Critical Care Consultation ---
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 There is no mediastinal hematoma or lymphadenopathy. Holly: Clear. Axillae: There is no axillary lymphadenopathy. Bony thorax: The skeletal structures are osteopenic. The bony thorax appears intact. There are chronic/healed bilateral rib fractures. No lytic or blastic lesions are identified. Degenerative change is seen in the shoulders and thoracic spine. Soft tissues: Gynecomastia is noted. ABDOMEN AND PELVIS: Liver: The contrast-enhanced liver is cirrhotic in morphology and heterogeneous attenuation. Attenuation is diminished suggesting steatosis. There is nodularity of the hepatic surface contour. There is no intrahepatic biliary ductal dilatation. The hepatic veins and portal veins are patent. Gallbladder: Surgically absent noting clips in the gallbladder fossa. Spleen: Normal in size and attenuation. Pancreas: Mildly atrophic and grossly unremarkable. Adrenal glands: A 3.5 cm myelolipoma arises from the left adrenal gland on image #147. This is unchanged. The right adrenal gland is normal in appearance. Kidneys: The contrast enhanced kidneys are atrophic and without hydronephrosis. The kidneys enhance symmetrically. A 4 mm nonobstructing calculus is seen on the left. Large left renal cyst measuring up to 7.7 cm. Additional subcentimeter cortical hypodensities also likely represent cysts but are too small for definitive characterization. Abdominal vasculature: The abdominal aorta is normal in course and caliber noting advanced atherosclerotic calcification. Stomach and bowel: A small hiatal hernia is noted. There is mild colonic diverticulosis without CT evidence of acute diverticulitis. No bowel obstruction is seen. There are small duodenal diverticula. The appendix is well-visualized and normal. Peritoneum: There is no intraperitoneal free air or abdominal ascites. There is asymmetric atrophy of the left psoas musculature. Lymphadenopathy: Prominent lymph nodes in the rob hepatis and portacaval region are likely related to chronic liver disease. These measure up to 12 mm in short axis. Pelvic viscera: Evaluation of the pelvis is degraded by streak artifact from a left hip arthroplasty. The prostate gland is diminutive and heterogeneous. The bladder wall is thickened/trabeculated indicating chronic outlet obstruction. Skeletal structures: The skeletal structures are osteopenic. The lumbosacral spine, bony pelvis, and proximal femora appear intact. There is moderate to advanced lumbosacral spondylosis. Postsurgical change is noted in the lumbar spine. No lytic or blastic lesions are seen. A left hip arthroplasty is in place. Periprostatic lucency suggests loosening. IMPRESSION: 1. There is no acute posttraumatic intrathoracic abnormality. 2. No pneumothorax. 3. Cardiomegaly and mild emphysema with evidence of fluid overload/mild congestive change. 4. Trace left pleural effusion. 5. Irregular nodular airspace opacities measure up to 13 mm. These are new from a [address] and may be related to edema. A follow-up chest CT in 3-4 months time is recommended to document resolution. 6. There is no evidence of solid organ injury in the abdomen or pelvis. 7. The liver is cirrhotic in morphology with evidence of steatosis. 8. Additional findings as above. ACT 112: Positive. There are findings on this exam that require communication between the performing entity and the patient following Patient Test Result Information Act ([place] Act 112) guidelines. Electronically signed by: Lane Escobar M.D. 01/18/2023 7:59 AM Resident Activity Tracking Resident Involvement: Resident Care Provided Care Provided: Adult [facility]
[2023-01-18] MEDS ORDERED: SODIUM CHLORIDE 0.9% 1000ML 1,000 ML IV PRN (12:03)
[2023-01-18] MEDS ORDERED: EPOETIN ALFA 10,000 UNITS/ML VIAL IV ONE (12:03)
[2023-01-18] MEDS: ICU Protocol for HYPERglycemia SCH ×3 (12:08→21:48)
[2023-01-18 12:13] LABS: Iron 94 mcg/dl (35-175); Unsaturated Iron Binding Cap < 55 mcg/dl (155-355)
[2023-01-18] MEDS ORDERED: PROMETHAZINE HCL 6.25 MG in SODIUM CHLORIDE 0.9% 50 ML IV PRN (12:25)
[2023-01-18] MEDS ORDERED: PROMETHAZINE HCL 6.25 MG in SODIUM CHLORIDE 0.9% 50 ML IV STA (12:25)
[2023-01-18] MEDS ORDERED: DIGOXIN 250 MCG in SYRINGE 9 ML IV ONE ×2 (12:30→14:30)
[2023-01-18 12:40] LABS: Amphetamines+Metham, Urine Neg (Neg); Barbiturates, Urine Neg (Neg); Benzodiazepine, Urine Pos (Neg); Cocaine, Urine Neg (Neg); MDMA (Ecstacy), Urine Pos (Neg); Methadone, Urine Neg (Neg); Opiate, Urine Neg (Neg); Phencyclidine, Urine Neg (Neg)
--- NOTE | 2023-01-18 13:06 | Consultation Report ---
NEPHROLOGY CONSULTATION NOTE REASON FOR CONSULTATION: Dialysis patient admitted with episode of fall at home and trauma to his he ad as well as ventricular tachycardia in the hospital. HISTORY OF PRESENT ILLNESS: The patient is a 62-year-old male with known ESRD, on chronic hemodialys is Wednesday, Wednesday, Wednesday with his last dialysis on Wednesday outpatient. The patient presented to [facility] earlier today after an episode of fall at home while in the toilet and he struck his head . In the Emergency Department, extensive workup was done and he was found to be in volume overload a s well as very elevated liver function test. CT scan of the abdomen and pelvis noted cirrhosis, whic h is a new diagnosis for him. He has been having issues with catheter not working well for dialysis, both clotting as well as bleeding. He has a new tunneled catheter placed just last week. He does h ave very significant cardiac disease with an ejection fraction of 20-25%. While in the Emergency Dep artment, the patient developed AFib with rapid ventricular response with heart rate in the 157. He a lso went into V-tach for about a minute and half after Cardizem was infused. He is currently in inte nsive care unit on the amiodarone drip. Vital signs most recently appears to be showing normal blood pressure, but heart rate is still somewhat fast with the readings around 120s and 130s. He is due f or dialysis later today. The patient has been seen by electrophysiology cardiology for consideration regarding pacemaker/defibrillator. The patient was hospitalized from 12/19/2022 till 01/04/2023 wit h acute CHF and COVID infection as well as acute kidney injury. The patient was started on dialysis just recently. However, in the last few weeks, the patient feels he has severe weakness. He is cons tantly having nausea and vomiting. PAST MEDICAL AND SURGICAL HISTORY: Includes congestive heart failure with the most recent ejection f raction of 20-25%, history of atrial flutter with rapid ventricular response, coronary artery disease , status post CABG, several cardiac stents, carotid artery stenosis, CKD stage IV before with recent starting of chronic hemodialysis, recent severe COVID infection, history of DVT, depression, peripher al arterial disease, sleep apnea, type 2 diabetes, gout, repair of rotator cuff, cholecystectomy, car diac stent, CABG, laminectomy, cystoscopy with stent placement, CABG x3. FAMILY HISTORY: Negative for renal disease or dialysis. SOCIAL HISTORY: The patient quit smoking at age 37. No alcohol. He is , retired, disabled, lives with his spouse, uses walker for ambulation. ALLERGIES: List reviewed and is as per the medicine reconciliation list and the H and P. MEDICATIONS: List was also reviewed in detail from the H and P and the reconciliation list. His inp atient current medication list was also reviewed. REVIEW OF SYSTEMS: Patient feels very weak. He is barely talking. He does have his eyes open. Gerald allen was present at the bedside and did most of the talking. Her biggest concerns are patient feeling w eak all the time as well as nausea and vomiting, which seems to be persistent and somewhat worse duri ng dialysis or right after that. PHYSICAL EXAMINATION: GENERAL: A middle-aged white male who appears to be significantly older than his stated age. He is awake, alert, oriented x3. CHEST: Bilateral decreased breath sounds, poor inspiratory effort. CARDIOVASCULAR: S1 and S2, tachycardic. Soft systolic murmur heard. ABDOMEN: Soft, nontender. EXTREMITIES: Show no edema. SKIN: Shows no rashes. LABORATORY TEST: Reviewed. Sodium is 128, potassium 4.1, BUN 37, creatinine 8.2, calcium 8.5, magne sium 2.0. Troponin 2215. BNP more than 4700. Chest x-ray, CT abdomen and abdomen and pelvis was re viewed. He has cirrhosis as well as evidence of pleural effusion and fluid overload. ASSESSMENT AND PLAN: A 62-year-old male with end-stage renal disease, on chronic hemodialysis after recent worsening of his CKD IV in the setting of COVID infection and sepsis, now admitted with fall. I have been consulted for dialysis management. 1. End-stage renal disease: He is due for dialysis today and we will try to do dialysis later today depending on his overall clinical condition. He is still in the ICU and has issues with rapid ventr icular response. Given this, we are planning to do 3 hours of dialysis and try to take about 2 kilos off if we can. He will get his heparin given significant problem with his catheter functioning in t he recent past. 2. Fall, syncope and cardiac rhythm problems being managed by Cardiology and primary team. Thank you very much for the consult. Job ID: [id number]
[2023-01-18 13:23] LABS: Acetaminophen < 3 ug/ml (10-30); Salicylate < 3.0 mg/dl (3.0-30)
[2023-01-18] MEDS ORDERED: AMIODARONE / D5W 360 MG/200 ML BAG IV SCH (14:30)
[2023-01-18] MEDS ORDERED: DEXTROSE 5% IV ONE ×2 (14:45→20:30)
[2023-01-18] MEDS ORDERED: ACETYLCYSTEINE IV ONE ×2 (14:45→20:30)
--- NOTE | 2023-01-18 15:11 | Electrocardiogram Report ---
Test Reason : Blood Pressure : / mmHG Vent. Rate : 157 BPM Atrial Rate : 147 BPM P-R Int : 000 ms QRS Dur : 126 ms QT Int : 314 ms P-R-T Axes : 000 040 206 degrees QTc Int : 507 ms Poor data quality, interpretation may be adversely affected Atrial fibrillation with rapid ventricular response Non-specific intra-ventricular conduction block Cannot rule out Anteroseptal infarct (cited on or before 19-DEC-2022) T wave abnormality, consider inferolateral ischemia Abnormal ECG When compared with ECG of 18-JAN-2023 05:37, (unconfirmed) No significant change was found Confirmed by Yoandy Santiago ([id number]) on 01/18/2023 3:10:38 PM Referred By: REFERRED SELF Confirmed By:Yoandy Santiago
--- NOTE | 2023-01-18 15:59 | Billing Data ---
Date of Service January 18, 2023 Coding Level of Care Code 23404 CRITICAL CARE 1ST 30-74M Time Spent (min) 43
[2023-01-18] MEDS ORDERED: ESMOLOL / NSS 2,500 MG/250 ML BAG IV SCH (16:00)
[2023-01-18] MEDS ORDERED: METOPROLOL TARTRATE 1 MG/ML VIAL IV SCH (18:00)
[2023-01-18] MEDS ORDERED: fentaNYL citrate PF 100 MCG/2 ML VIAL ONE (18:36)
[2023-01-18] MEDS ORDERED: MIDAZOLAM HCL 1 MG/ML 2ML VIAL ONE (18:37)
[2023-01-18] MEDS ORDERED: RAPID SEQUENCE INDUCTION BAG ONE (18:48)
[2023-01-18] MEDS ORDERED: fentaNYL citrate PF 100 MCG/2 ML VIAL IV STA (18:52)
[2023-01-18] MEDS ORDERED: MIDAZOLAM HCL 125MG/250ML D5W IV ONE (19:14)
[2023-01-18] MEDS ORDERED: NOREPINEPHRINE/D5W 4 MG/250 ML IV ONE (19:14)
[2023-01-18] MEDS ORDERED: fentaNYL citrate 2,500 MCG/250 ML BAG IV ONE (19:14)
--- NOTE | 2023-01-18 19:14 | XRay Report ---
XR chest 1V portable HISTORY: 62 years-old Male intubation acute respiratory failure COMPARISON: Chest radiograph and chest CT studies of same day TECHNIQUE: AP view of the chest. FINDINGS: Cardiac silhouette is enlarged. Prior median sternotomy. Right IJ dual-lumen hemodialysis catheter is unchanged. Status post placement of an endotracheal tube with distal tip overlying the midline, 1.9 cm superior to the shabnam. An enteric tube is present with distal tip in the expected location of the gastric body. No pneumothorax, pleural effusion or airspace consolidation. Pulmonary vascular conges tion. Degenerative changes of the shoulders and spine. Cholecystectomy. IMPRESSION: 1. Lines and tubes as above. 2. Cardiomegaly with pulmonary vascular congestion. ACT 112: Negative or not required by law. The above report was generated using voice recognition software. It may contain grammatical, syntax o r spelling errors. Electronically signed by: Aston Ryan M.D. 01/18/2023 7:12 PM
--- NOTE | 2023-01-18 19:17 | Procedure Note ---
Procedure Note Date of Service January 18, 2023 Note INTUBATION PROCEDURE NOTE: Dr. Roni Suero A time-out was completed verifying correct patient, procedure, site, positioning. Patient was evaluated and required intubation for hypoxemic respiratory failure and altered mental status. Sedative agent used: 25 mg of etomidate Paralysis agent used: 50 mg rocuronium Emergent consent was implied given patients rapidly declining clinical status and need for airway protection. Number of attempts: 1 Grade view: Not applicable The patient was prepared in the appropriate fashion. Sedation was achieved utilizing 25 mg of etomidate and 50 mg rocuronium. The patient was easily vent ilated using [id number] to achieve adequate oxygenation. A 8.0 [place] endotracheal tube was placed under video laryngoscope guidance to 22 cm at the lip. The stylette was removed and balloon was inflated with 10mL of air. Appropriate Colorimetric change was appreciated. Bilateral breath sounds were heard without air sounds in the abdomen. Post Intubation Chest X-ray ordered Patient tolerated the procedure well and there were no immediate complications. Coding CPT Codes Resuscitation - Resuscitation: 28629 Endotracheal Intubation, emergency ([id number]) [facility] [place] Procedure Codes (Charges) Resuscitation Resuscitation: 72874 Endotracheal Intubation, emergency
--- NOTE | 2023-01-18 19:19 | Procedure Note ---
Procedure Note Date of Service January 18, 2023 Note Due to the patient's worsening hypotension, hypoxemia and mental status which is worsening, I emergently cardioverted the patient. He was premedicated with 50 mg of fentanyl prior to the initial cardioversion. Defibrillator pads were p laced on the chest. The defibrillator was placed and synchronized cardioversion mode. He was initially shocked with 50 J of energy. Unfortunately he remained in atrial fibrillation with rapid ventricular response. He was then premedicated with an additional 1 mg of Versed. He was then cardioverted with 100 J of energy, but remained in atrial fibrillation with rapid ventricular response. Shortly after, the patient was emergently intubated for airway protection, hypoxemia and altered mental status. Patient's was updated after these events and she is aware and in agreement with plan. Coding CPT Codes Resuscitation - Resuscitation: 44238 Cardioversion electric, ext ([id number]) [facility] [place] Procedure Codes (Charges) Resuscitation Resuscitation: 50689 Cardioversion electric, ext
[2023-01-18] MEDS ORDERED: fentaNYL BOLUS from BAG IV PRN (19:40)
[2023-01-18] MEDS ORDERED: fentaNYL citrate 2,500 MCG/250 ML BAG IV SCH (19:45)
[2023-01-18] MEDS ORDERED: NSS IV ONE (19:48)
[2023-01-18] MEDS ORDERED: DEXMEDETOMIDINE 200 MCG/50 ML IV ONE (19:48)
[2023-01-18] MEDS: NOREPINEPHRINE/D5W 4 MG/250 ML PLCT IV SCH (19:50)
--- NOTE | 2023-01-18 19:50 | Procedure Note ---
Procedure Note Date of Service January 18, 2023 Note ARTERIAL LINE PROCEDURE NOTE: Procedure: Arterial Line Placement Attending: Dr. Suero Provider: DEANNA Rosales Indication: Monitoring on Pressors Anesthesia: Lidocaine 1% Consent was signed and placed on the chart prior to procedure. Indication, risks, and benefits were explained at length. A time-out was completed verifying correct patient, procedure, site, positioning, and implant(s) or special equipment if applicable. Allens test was performed to ensure adequate perfusion. Patients Left wrist was prepped and draped in the usual sterile fashion. Ultrasound guidance was used to aid needle placement. A 20g Arrow arterial line was introduced into the left radial artery. Catheter was threaded, and the needle was removed with appropriate blood return. Good waveform was observed. The patient tolerated the procedure well. Confirmation of placement with ultrasound. Blood Loss: Minimal Complications: None Procedural Ultrasound Guidance: Procedure Date: Yes Indication: Yes Attending: Dr. Suero Provider: DEANNA Rosales Artery Identified: YES Line confirmed in Artery with ultrasound: Yes Complications: NONE Patient tolerated procedure: WELL Coding CPT Codes Tubes, Drains, and Vasc Access - Tubes, Drains, and Vasc Access: [id number] Arterial Cath/Cannulation Sampling/Monitoring/Transfusion ([id number]) [facility] [place] Procedure Codes (Charges) Tubes, Drains, and Vasc Access Procedure 1: Tubes, Drains, and Vasc Access: [id number] Arterial Cath/Cannulation Samp ling/Monitoring/Transfusion
--- NOTE | 2023-01-18 19:50 | Procedure Note ---
Procedure Note Date of Service January 18, 2023 Note INTERNAL JUGULAR CENTRAL LINE PROCEDURE NOTE: Procedure: Internal Jugular Central Line Placement Attending: Dr. Suero Provider: DEANNA Rosales Indication: Central Drug Administration, Poor Venous Access, Multiple Lab Draws Necessary, etc. Anesthesia:Lidocaine 1% Consent was signed and placed on the chart prior to procedure. Indication, risks, and benefits were explained at length. A time-out was completed verifying correct patient, procedure, site, positioning, and implants(s) or special equipment if applicable. Patients Right Neck was cleansed and draped in the typical sterile fashion using Chloraprep. The Internal Jugular Vein and Carotid Artery were identified using ultrasound. The superficial tissue was anesthetized using 3 mL of 1% lidocaine without epinephrine under direct visualization with the ultrasound. After adequate anesthetization was achieved, the Internal Jugular vein was cannulated under direct ultrasound guidance using an introducer needle on a syringe. Good venous blood return was maintained prior to removal of syringe from introducer needle. Using Seldinger Technique, a guide wire was advanced through the introducer needle without resistance. The introducer needle was removed and ultrasound images were obtained of the guide wire within the Internal Jugular Vein and saved to the patients medical record. A small incision was made in penetrating fashion at the guide wire insertion site utilizing an 11 blade scalpel. The dilator was advanced to the vessel without resistance. The dilator was exchanged for the triple lumen catheter which was advanced into the vessel without resistance. The guide wire was removed intact from the catheter without issue. Claves were placed on each catheter tip with confirmation of good blood flow from each lumen. Each port was easily flushed with sterile saline. The catheter was placed at 17 cm and sut[address] in place. BioPatch was applied to the catheter and a sterile Tegaderm dressing was applied over the catheter with careful attention to sterility. Patient tolerated procedure well. No immediate complications were met. Post procedure x-ray was completed, placement was appropriate and no pneumothorax was noted. Procedural Ultrasound Guidance: Procedure Date: 01/18/2023 Indication: CVC insertion Attending: Dr. Suero Provider: DEANNA Rosales Artery AND Vein visualized: yes Compressible Vein: yes Guidewire or Short Catheter seen in vein prior to dilation: yes Line confirmed in Vein with ultrasound: yes Coding CPT Codes Tubes, Drains, and Vasc Access - Tubes, Drains, and Vasc Access: [id number] Place catheter in vein superior or inferior vena cava ([id number]) [facility] [place] Procedure Codes (Charges) Tubes, Drains, and Vasc Access Procedure 1: Tubes, Drains, and Vasc Access: [id number] Place catheter in vein superior or inferior vena cava
--- NOTE | 2023-01-18 20:11 | XRay Report ---
XR chest 1V portable HISTORY: 62 years-old Male new R IJ central line placement COMPARISON: Chest radiograph of same day at 6:49 PM TECHNIQUE: Supine AP view the chest FINDINGS: Cardiac silhouette is enlarged. Prior median sternotomy. Status post placement of a right IJ central venous catheter distal tip in the expected location of the upper SVC. Right IJ dual-lumen hemodialysi s catheter is unchanged. Endotracheal tube is redemonstrated with distal tip projected approximately 3 cm superior to the shabnam. An enteric tube is present with distal tip in the expected location of t he gastric body. No pneumothorax, pleural effusion or airspace consolidation. Pulmonary vascular ramon estion. Degenerative changes of the shoulders and spine. Cholecystectomy. IMPRESSION: 1. Lines and tubes as above. No pneumothorax. 2. Cardiomegaly with pulmonary vascular congestion. ACT 112: Negative or not required by law. The above report was generated using voice recognition software. It may contain grammatical, syntax o r spelling errors. Electronically signed by: Aston Ryan M.D. 01/18/2023 8:10 PM
[2023-01-18 20:27] LABS: iSTAT Art Bld Gas pCO2 Correct 32 mmHg (35-46); iSTAT Arterial Blood Gas HCO3 27 meg/L (19-24); iSTAT Arterial Blood Gas pCO2 32 mmHg (35-46); iSTAT Arterial Blood Gas pH 7.53 (7.35-7.45); iSTAT Arterial Blood Gas pO2 230 mmHg (80-95); iSTAT Arterial Blood Gas pO2 C 228; iSTAT Carbon Dioxide 28 mmol/L (24-31); iSTAT FiO2 60 %; iSTAT Hematocrit 26 % (42-52); iSTAT Hemoglobin 8.8 g/dl (14.0-18.0); iSTAT Potassium 3.4 mmol/L (3.3-5.0); iSTAT Site Art Line; iSTAT Sodium 133 mmol/L (135-144)
[2023-01-18] MEDS: dexMEDEtomidine 200 MCG/50 ML BAG IV SCH ×2 (21:20→23:50)
[2023-01-18] MEDS: ATORVASTATIN 40 MG TAB PO SCH (21:48)
[2023-01-18] MEDS: allopurinoL 300 MG TAB PO SCH (21:48)
[2023-01-18] MEDS: PANTOprazole 40 MG in SYRINGE 0 ML IV SCH (21:48)
[2023-01-18] MEDS: HEPARIN SOD 5,000 UNIT/0.5 ML VIAL SQ SCH (21:48)
[2023-01-18] MEDS: VENLAFAXINE HCL XR 75 MG CAPXR PO SCH (21:49)
[2023-01-18 21:59] LABS: BUN Creatinine Ratio 5.2 (10-20); Calcium 7.9 mg/dl (8.6-10.3); Creatinine Clr Calc Pharmacy 15.4 ml/min; Est GFR (African American) 12.1 ml/min; Est GFR (Non-African American) 10.4 ml/min; Magnesium 1.9 mg/dl (1.7-2.4); Potassium 3.5 mmol/L (3.5-5.1)
[2023-01-18 22:05] LABS: Basophils # (auto) 0.01 K/uL (0-0.2); Basophils % (auto) 0.2 %; Hematocrit (blood only) 24.7 % (42.0-52.0); Hemoglobin 8.2 g/dl (14.0-18.0); Immature Granulocytes # (auto) 0.05 K/uL (0.01-0.20); Immature Granulocytes % (auto) 0.8 %; Lymphocytes # (auto) 0.69 K/uL (1.2-3.4); Lymphocytes % (auto) 10.9 %; Mean Corpuscular Hemoglobin 30.7 pg (25.0-34.0); Mean Corpuscular Hgb Conc 33.2 g/dL (32.0-36.0); Mean Corpuscular Volume 92.5 fL (80.0-100.0); Mean Platelet Volume 12.9 fL (9.4-12.4); Monocytes # (auto) 0.18 K/uL (0.11-0.59); Monocytes % (auto) 2.8 %; Neutrophils # (auto) 5.41 K/uL (1.40-6.50); Neutrophils % (auto) 85.3 %; Ovalocytes 1+; Platelet Count 119 K/uL (130-400); Poikilocytosis Present; RDW Coefficient of Variation 16.8 % (11.5-14.5); RDW Standard Deviation 56.4 fL (36.4-46.3); Red Blood Count 2.67 M/uL (4.70-6.10); Tear Drop Cells 1+; White Blood Count 6.34 K/ul (4.8-10.8)
[2023-01-19] MEDS ORDERED: SODIUM CHLORIDE 0.9% 1000ML 1,000 ML IV SCH (01:00)
[2023-01-19] MEDS: dexMEDEtomidine 200 MCG/50 ML BAG IV SCH ×5 (03:54→20:37)
[2023-01-19 04:14] LABS: iSTAT Art Bld Gas pCO2 Correct 33 mmHg (35-46); iSTAT Art Bld Gas pH Corrected 7.484 (7.35-7.45); iSTAT Arterial Blood Gas HCO3 25 meg/L (19-24); iSTAT Arterial Blood Gas pCO2 34 mmHg (35-46); iSTAT Arterial Blood Gas pH 7.48 (7.35-7.45); iSTAT Arterial Blood Gas pO2 141 mmHg (80-95); iSTAT Arterial Blood Gas pO2 C 139; iSTAT Carbon Dioxide 26 mmol/L (24-31); iSTAT FiO2 40 %; iSTAT Hematocrit 26 % (42-52); iSTAT Hemoglobin 8.8 g/dl (14.0-18.0); iSTAT Potassium 3.6 mmol/L (3.3-5.0); iSTAT Site Art Line; iSTAT Sodium 131 mmol/L (135-144)
[2023-01-19 06:32] LABS: Albumin Level 2.5 gm/dl (3.4-5.0); BUN Creatinine Ratio 5.7 (10-20); Bilirubin Direct 0.5 mg/dl (0-0.2); Bilirubin,Total 1.1 mg/dl (0.2-1.0); Calcium 8.2 mg/dl (8.6-10.3); Creatinine Clr Calc Pharmacy 14.1 ml/min; Est GFR (African American) 10.7 ml/min; Est GFR (Non-African American) 9.3 ml/min; Magnesium 1.9 mg/dl (1.7-2.4); Phosphorus 4.3 mg/dl (2.5-4.9); Potassium 3.8 mmol/L (3.5-5.1); Total Protein 5.4 gm/dl (6.0-8.3)
[2023-01-19 06:34] LABS: INR 1.9 (0.9-1.1); Prothrombin Time 19.5 Seconds (9.0-12.0)
[2023-01-19 06:45] LABS: Hematocrit (blood only) 25.7 % (42.0-52.0); Hemoglobin 8.4 g/dl (14.0-18.0); Mean Corpuscular Hemoglobin 29.6 pg (25.0-34.0); Mean Corpuscular Hgb Conc 32.7 g/dL (32.0-36.0); Mean Corpuscular Volume 90.5 fL (80.0-100.0); Platelet Count 111 K/uL (130-400); RDW Coefficient of Variation 16.5 % (11.5-14.5); RDW Standard Deviation 54.5 fL (36.4-46.3); Red Blood Count 2.84 M/uL (4.70-6.10); White Blood Count 7.07 K/ul (4.8-10.8)
[2023-01-19 06:46] LABS: Basophils # (auto) 0.01 K/uL (0-0.2); Basophils % (auto) 0.1 %; Echinocytes 1+; Immature Granulocytes # (auto) 0.07 K/uL (0.01-0.20); Lymphocytes # (auto) 0.69 K/uL (1.2-3.4); Lymphocytes % (auto) 9.8 %; Monocytes # (auto) 0.15 K/uL (0.11-0.59); Monocytes % (auto) 2.1 %; Neutrophils # (auto) 6.15 K/uL (1.40-6.50); Tear Drop Cells 1+
[2023-01-19] MEDS ORDERED: MAGNESIUM SULFATE / D5W 1 GM/100 ML BAG IV ONE (06:58)
--- NOTE | 2023-01-19 07:02 | Critical Care Progress Note ---
Date of Service January 19, 2023 Assessment & Plan (1) V-tach: (2) Syncope: (3) Transaminitis: (4) Abnormal finding on lung imaging: (5) Cirrhosis: (6) Atrial fibrillation with RVR: Plan Reason Critically Ill: 62-year-old male here with a history significant for DM, CAD, HTN, CKD on hemodialysis admitted after sustaining a fall from a syncopal episode at home in the bathroom who was transferred to the ICU. Neuro - Altered Mental Status CAM ICU- Negative Sedation- Precedex, Norepinephrine * Suspect multifactorial etiology including missed hemodialysis, hypoxia, worsening HFrEF * Head CT (01/18) without intracranial abnormality * Soft hand restraints in place Cardiac - A. Fib with RVR, Ventricular Tachycardia, Elevated Troponin, Acute on Chronic HFrEF * Yesterday had a run of a wide-complex tachycardia, was likely ventricular tachycardia * Tachycardic at 120s-130s, irregular rhythm. * Troponin downtrending. * Digoxin, amiodarone paused yesterday due to elevated liver function tests, will resume amiodarone today. Metoprolol added. * Echo with EF of 20-25%, severe left ventricular dysfunction. May require ICD placement, will await further recommendations from cardiology. Respiratory - Respiratory Distress * Mechanically ventilated * No plan for SBT today * Clinically appears to have increased work of breathing since dx of COVID last month GI - Transaminitis, Ischemic vs. Congestive Hepatopathy * New finding on imaging of cirrhosis, suspect secondary to BROWN and/or w orsening heart function * Transaminitis downtrending- AST 1278, ALT 305 * Will continue to trend liver function, hepatitis * Salicylate and Acetaminophen levels normal (<3), continue N-Acetyl Cysteine * Diet- pending cardiology plans, will start tube feeds later today Renal/Lytes - CKD Requiring Dialysis * Per nephrology, no plans to dialyze today * MWF dialysis * Potassium 3.6, Phosphorous 4.3, Magnesium 1.9. Received mag sulfate. - * Minimal urine output (0.04 mL/kg/hr), in setting of CKD requiring hemodialysis * Will d/c reilly catheter * Poor PO intake for several weeks prior Endo - Diabetes Mellitus Type II * Not on any agents at home, will continue BSG AC/HS for now and monitor for any lows * Follow ICU hyperglycemic protocols Heme - Normocytic Anemia * Hgb 8.4 today, no current signs of an active bleed although had questionable dark stool at home * Will trend hemoglobin, coagulation studies ID - * Hepatitis panel pending * COVID-19 negative * MRSA nares negative Lines/IV Access - * Peripheral IVs in place at bilateral ACs, hemodialysis catherer * IJ line in place DVT Prophylaxis - * Holding home Eliquis * Currently on subQ heparin Thank you for allowing us to be part of this patient's care. Please refer to Dr. Suero's documentation for any further recommendations. Admission and Anticipated Discharge Date Admission Date: January 18, 2023 Supervising Physician Co-Signing Physician Notes Patient seen and examined with the resident physician. Agree with the assessment and plan aside for any additions/exceptions noted: Continue lung protective ventilation strategy. Restart amiodarone at a lower rate. Consider restarting low-dose continuous heparin pending cardiology recommendations. Restarted metoprolol 25 mg twice daily. Continue Precedex and low-dose fentanyl. Renal following for HD. Continue to maintain maps above 65 mmHg. Levophed as needed. CRITICAL CARE TIME - I have personally spent 44 minutes of critical care time in the direct man agement of this patient. This is a life/limb threatening event. This includes time spent evaluating patient, direct bedside care, chart review, placing orders, interpretation of diagnostic studies, discussion with consultants, patient, and family members, as well as other required patient management activities. This time is exclusive of all separately billable procedures, and teaching time and separate from and in addition to any other critical care service time. Subjective Patient was seen and examined at bedside. Overnight, Mr. Holman had worsening respiratory status and continued A. fib with RVR- 2 attempts at cardioversion completed (but remained in irregular rhythm), central line placed and patient was intubated. Patient has had minimal urine output. Patient has been responding to name and has been able to follow simple commands. Review of Systems Review of Systems: Unable to obtain Physical Exam Constitutional: Sedated, in no acute distress. ENMT: External ears and nose normal. ET tube in place. Neck: IJ line in place. Respiratory: Mechanically ventilated. Some decreased breath sounds, no rhonchi, crackles. Cardiovascular: Irregularly irregular rhythm, no murmur/rub/gallop. Radial pulses intact bilaterally. No pitting edema of lower extremities. Gastrointestinal (Abdomen): Abdomen soft, nondistended. Appears to be nontender. +bowel sounds. No masses palpated. Skin: No jaundice. Dry, no rashes. Neurologic: Able to follow commands. Can move feet, squeeze hands when prompted. Genitourinary: Reilly catheter in place. Results & Data Results & Data Vital Signs (Past 12 Hours) Vital Signs Temp Pulse Resp BP Pulse Ox O2 Del Method FiO2 01/19/23 06:00 108 H 15 119/94 99 Mechanical Vent 40 01/19/23 05:01 106 H 15 102/32 L 98 40 01/19/23 04:41 110 H 16 131/41 L 97 40 01/19/23 04:00 36.5 C 106 H 13 97 01/19/23 03:00 112 H 16 94/57 L 98 Mechanical Vent 40 01/19/23 04:00 103 H 99/56 L 01/19/23 04:00 40 01/19/23 03:37 73 16 99 40 01/19/23 02:00 109 H 16 107/76 99 Mechanical Vent 40 01/19/23 01:00 113 H 16 97/66 L 99 01/19/23 00:01 36.6 C 108 H 18 119/64 100 Mechanical Vent 40 01/18/23 23:00 115 H 16 129/70 99 01/18/23 22:01 126 H 18 103/75 100 01/18/23 21:00 105 H 16 128/95 100 01/18/23 20:00 132 H 21 121/72 94 01/18/23 19:37 105 H 24 147/95 H 100 01/18/23 19:12 36.6 C 146 H 17 88/63 L 100 Mechanical Vent 40 01/19/23 00:00 40 01/19/23 00:00 106 H 105/54 L 01/18/23 19:15 100 01/18/23 20:00 Mechanical Vent 40 01/18/23 23:24 106 H 18 100 40 01/18/23 20:00 18 40 01/18/23 19:13 24 100 Resident Activity Tracking Resident Involvement: Resident Care Provided Care Provided: Adult Hospital Medicine
[2023-01-19] MEDS: ICU Protocol for HYPERglycemia SCH ×3 (07:35→18:03)
[2023-01-19 07:38] LABS: Troponin I High Sensitivity 1528.2 pg/ml (0-20)
--- NOTE | 2023-01-19 07:40 | XRay Report ---
XR chest 1V portable HISTORY: Respiratory failure. COMPARISON: Chest 01/18/2023. FINDINGS: No pneumothorax. The heart remains enlarged. There are poststernotomy changes. Mild pulmona ry vascular congestion without overt edema. This has slightly progressed. The heart remains mildly en larged. There are 2 right jugular central venous catheter terminating in the SVC. Nasogastric tube is not well visualized but likely terminates below the diaphragm. Endotracheal tube is also not well vi sualized but likely terminates approximately 2.5 cm from the shabnam. IMPRESSION: 1. Cardiomegaly with slight progression of the pulmonary vascular congestion. 2. Lines and tubes are suboptimally assessed on this AP portable study but are likely in good positio n. ACT 112: Negative or not required by law. Electronically signed by: Juwan Mo M.D. 01/19/2023 7:39 AM
[2023-01-19] MEDS ORDERED: 0.2 MICRON FILTER SET 1 EACH IV ONE (08:37)
[2023-01-19] MEDS: HEPARIN SOD 5,000 UNIT/0.5 ML VIAL SQ SCH (08:41)
[2023-01-19] MEDS: buPROPion SR 100 MG TABCR PO SCH (08:41)
[2023-01-19] MEDS: METOPROLOL TARTRATE 25 MG TAB PO SCH ×2 (08:41→20:55)
[2023-01-19] MEDS: PANTOprazole 40 MG in SYRINGE 0 ML IV SCH ×2 (08:41→20:55)
[2023-01-19] MEDS ORDERED: ASPIRIN 81 MG ECTAB PO SCH (09:00)
[2023-01-19] MEDS: AMIODARONE / D5W 360 MG/200 ML BAG IV SCH ×2 (09:03→19:46)
--- NOTE | 2023-01-19 10:24 | Billing Data ---
Date of Service January 19, 2023 Coding Level of Care Code 87027 CRITICAL CARE 1ST 30-74M Time Spent (min) 44
--- NOTE | 2023-01-19 10:29 | Nephrology Progress Note ---
Date of Service January 19, 2023 Assessment & Plan Admission and Anticipated Discharge Date Admission Date: January 18, 2023 Subjective S----Major decline in status. had only about 1hr 45 mins of Dialysis--BP dropped and hr went up. later evening yesterday now intubated and on Pressors. PHYSICAL EXAMINATION: GENERAL: A middle-aged white male who appears to be significantly older than his stated age.Intubated and sedated on pressors CHEST: Bilateral decreased breath sounds, poor inspiratory effort. CARDIOVASCULAR: S1 and S2, tachycardic. Soft systolic murmur heard. ABDOMEN: Soft, nontender. EXTREMITIES: Show no edema. SKIN: Shows no rashes. LABORATORY TEST: Reviewed. Sodium is 128, potassium 4.1, BUN 37, creatinine 8.2, calcium 8.5, magnesium 2.0. Troponin 2215. BNP more than 4700. Chest x- ray, CT abdomen and abdomen and pelvis was reviewed. He has cirrhosis as well as evidence of pleural effusion and fluid overload. ASSESSMENT AND PLAN: A 62-year-old male with end-stage renal disease, on chronic hemodialysis after recent worsening of his CKD IV in the setting of COVID infection and sepsis, now admitted with fall. I have been consulted for dialysis management. he is critically ick with resp failure and Shock--intubated on ventilator and on pressors 1. End-stage renal disease: CXr shows very mild pulm congestion but still critically ill needing Pressors. Will plan for dialysis tomorrow. No issues with electrolytes. ABG from this AM shows slight alkalosis--so can lower the vent settings a bit. Results & Data Vital Signs (Past 12 Hours) Vital Signs Temp Pulse Resp BP Pulse Ox O2 Del Method FiO2 01/19/23 07:00 104 H 15 99 40 01/19/23 08:02 110 H 15 99 01/19/23 08:02 104/59 L 01/19/23 08:00 101 H 15 100 01/19/23 07:23 83/66 L 01/19/23 07:23 114 H 15 99 01/19/23 07:19 106 H 15 98 01/19/23 07:01 119 H 15 99 01/19/23 07:01 110/58 L 01/19/23 07:00 119 H 15 99 01/19/23 08:00 30 01/19/23 08:00 108 H 119/94 01/19/23 06:00 108 H 15 119/94 99 Mechanical Vent 40 01/19/23 05:01 106 H 15 102/32 L 98 40 01/19/23 04:41 110 H 16 131/41 L 97 40 01/19/23 04:00 36.5 C 106 H 13 97 01/19/23 03:00 112 H 16 94/57 L 98 Mechanical Vent 40 01/19/23 04:00 103 H 99/56 L 01/19/23 04:00 40 01/19/23 03:37 73 16 99 40 01/19/23 02:00 109 H 16 107/76 99 Mechanical Vent 40 01/19/23 01:00 113 H 16 97/66 L 99 01/19/23 00:01 36.6 C 108 H 18 119/64 100 Mechanical Vent 40 01/18/23 23:00 115 H 16 129/70 99 01/19/23 00:00 40 01/19/23 00:00 106 H 105/54 L 01/18/23 23:24 106 H 18 100 40
[2023-01-19] MEDS ORDERED: ASPIRIN 81 MG CHEW NG SCH (10:30)
[2023-01-19 10:52] LABS: HBSAG NON-REACTIVE (NON-REACTIVE); Hepatitis A Antibody IgM NON-REACTIVE (NON-REACTIVE); Hepatitis B Core Antibody IgM NON-REACTIVE (NON-REACTIVE)
--- NOTE | 2023-01-19 13:39 | Electrocardiogram Report ---
Test Reason : Blood Pressure : / mmHG Vent. Rate : 114 BPM Atrial Rate : 234 BPM P-R Int : 000 ms QRS Dur : 110 ms QT Int : 292 ms P-R-T Axes : 000 022 174 degrees QTc Int : 402 ms Probable Atrial fibrillation with rapid ventricular response Non-specific intra-ventricular conduction delay Septal infarct (cited on or before 19-DEC-2022) Abnormal ECG When compared with ECG of 18-JAN-2023 08:30, Significant changes have occurred Confirmed by Yoandy Santiago ([id number]) on 01/19/2023 1:39:18 PM Referred By: REFERRED SELF Confirmed By:Yoandy Santiago
--- NOTE | 2023-01-19 13:41 | Electrocardiogram Report ---
Test Reason : Blood Pressure : / mmHG Vent. Rate : 107 BPM Atrial Rate : 234 BPM P-R Int : 000 ms QRS Dur : 106 ms QT Int : 340 ms P-R-T Axes : 000 023 165 degrees QTc Int : 453 ms Possible Atrial flutter with variable A-V block Non-specific intra-ventricular conduction delay Septal infarct (cited on or before 19-DEC-2022) Abnormal ECG When compared with ECG of 19-JAN-2023 06:18, (unconfirmed) T wave inversion more evident in Lateral leads Confirmed by Yoandy Santiago ([id number]) on 01/19/2023 1:41:24 PM Referred By: REFERRED SELF Confirmed By:Yoandy Santiago
[2023-01-19] MEDS ORDERED: PEPTAMEN INTENSE VHP 1.0 CAL 1,000 ML BAG OG SCH (16:30)
--- NOTE | 2023-01-19 17:17 | Cardiology Progress Note ---
Date of Service January 19, 2023 Assessment & Plan (1) Syncope: (2) V-tach: (3) Atrial fibrillation with RVR: (4) Cardiomyopathy: Plan 1. Syncope: The cause of syncope is likely arrhythmic, possibilities include going into atrial fibrillation and a rapid heart rate which evidently is a relatively new finding (9 days ago he was in sinus rhythm but he does not recall feeling a rhythm change but seems asymptomatic at the moment in rapid atrial fibrillation) or ventricular tachycardia which occurred in the emergency room. He does also have a history of labile blood pressure with hypotension requiring discontinuation of beta-blockade so orthostasis is also a possibility, possibly in combination with an arrhythmia. 2. Ventricular tachycardia: I reviewed his rhythm strips and the wide-complex rhythm does appear to be ventricular tachycardia. It does not start with an ear ly beat to suggest an aberrant rhythm, it is very regular and wider than his conducted rhythm during atrial fibrillation although the rate is actually similar. It terminates abruptly which is also consistent with a ventricular arrhythmia. A twelve-lead electrocardiogram was not done during the arrhythmia. At this point I would continue intravenous amiodarone although his liver function tests are very abnormal so this is quite worrisome. His electrolytes are not terribly abnormal. We may need to consider an ICD in the future. 3. Atrial fibrillation: He presents in atrial fibrillation with a rapid heart rate, unfortunately when he first had this rhythm attempts at rate control were unsuccessful. I added digoxin to his regimen and he received 2 doses of 0.25 mg each yesterday, this morning his level was 2.7. That is extremely unusual, his loading dose would normally be a milligram and to have that high level after just 2 doses is very odd. I am going to recheck his level tomorrow. At the moment his rate is adequately controlled, in part probably because of the sedation. 4. Cardiomyopathy: He has a relatively recent cardiomyopathy, this occurred somewhere between October 02, 2022 and December 20, 2022. An echocardiogram was done on arrival in the emergency room and confirms severe left ventricular dysfunction with an ejection fraction of 20 to 25%. We will need to try to get him on more appropriate heart failure medications, this has been limited by hypotension I believe. Certainly we cannot do much at the moment. Admission and Anticipated Discharge Date Admission Date: January 18, 2023 Subjective Events of last evening noted. The patient has remained in atrial fibrillation, he is currently intubated and sedated and therefore cannot be interviewed. Physical Exam Physical Exam: Constitutional: Intubated and sedated HEENT: No obvious abnormality on limited exam, oral intubation in place Neck: No jugular venous distention, carotid pulses are irregular but otherwise normal and equal bilaterally without bruits. Pulmonary: Clear to auscultation bilaterally. Cardiac: Irregular rapid rhythm with no murmur, gallop or rub. Abdomen: Soft, nontender with normal bowel sounds. Extremities: No edema. Neurologic: Limited exam possible. Skin: No rash, ecchymoses or petechiae. Results & Data Vital Signs (Past 12 Hours) Vital Signs Pulse Resp BP Pulse Ox O2 Del Method FiO2 01/19/23 15:00 100 H 15 97 30 01/19/23 15:00 83 16 98 01/19/23 15:00 145/41 H 01/19/23 14:00 92 H 16 99 01/19/23 13:00 88 13 98 01/19/23 13:00 142/86 H 01/19/23 12:00 83 15 98 01/19/23 12:00 134/82 01/19/23 12:00 30 01/19/23 12:00 87 110/54 L 01/19/23 11:00 94 H 15 98 01/19/23 11:00 141/109 H 01/19/23 10:00 92 H 15 98 01/19/23 09:01 112 H 15 97 01/19/23 09:00 111 H 16 96 01/19/23 08:00 Mechanical Vent 30 01/19/23 11:00 98 H 15 98 40 01/19/23 07:00 104 H 15 99 40 01/19/23 08:02 110 H 15 99 01/19/23 08:02 104/59 L 01/19/23 08:00 101 H 15 100 01/19/23 07:23 83/66 L 01/19/23 07:23 114 H 15 99 01/19/23 07:19 106 H 15 98 01/19/23 07:01 119 H 15 99 01/19/23 07:01 110/58 L 01/19/23 07:00 119 H 15 99 01/19/23 08:00 30 01/19/23 08:00 108 H 119/94 01/19/23 06:00 108 H 15 119/94 99 Mechanical Vent 40 Laboratory Results Cardiac Enzymes 01/18/23 01/19/23 Range/Units 17:27 05:39 AST 1278 H (13-39) U/L Troponin I High Sens 2064.3 H* 1528.2 H* D (0-20) pg/ml Coagulation 01/19/23 Range/Units 05:39 PT 19.5 H (9.0-12.0) Seconds CBC 01/18/23 01/19/23 Range/Units 20:58 05:39 WBC 6.34 7.07 (4.8-10.8) K/ul RBC 2.67 L 2.84 L (4.70-6.10) M/uL Hgb 8.2 L 8.4 L (14.0-18.0) g/dl Hct 24.7 L 25.7 L (42.0-52.0) % Plt Count 119 L 111 L (130-400) K/uL Neut # (Auto) 5.41 6.15 (1.40-6.50) K/uL Lymph # (Auto) 0.69 L 0.69 L (1.2-3.4) K/uL Sutton # (Auto) 0.18 0.15 (0.11-0.59) K/uL Eos # (Auto) 0.00 0.00 (0-0.50) K/uL Baso # (Auto) 0.01 0.01 (0-0.2) K/uL Comprehensive Metabolic Panel 01/18/23 01/19/23 Range/Units 20:58 05:39 Sodium 134 L 133 L (136-145) mmol/L Potassium 3.5 3.8 (3.5-5.1) mmol/L Chloride 94 L 92 L (98-107) mmol/L Carbon Dioxide 25 24 (21-32) mmol/L BUN 28 H 34 H (6-23) mg/dl Creatinine 5.38 H* D 5.93 H* D (0.6-1.4) mg/dl Glucose 99 135 H (70-99(Fasting)) mg/dl Calcium 7.9 L 8.2 L (8.6-10.3) mg/dl Direct Bilirubin 0.5 H (0-0.2) mg/dl AST 1278 H (13-39) U/L ALT 305 H (7-52) U/L Alkaline Phosphatase 95 (34-104) U/L Total Protein 5.4 L (6.0-8.3) gm/dl Albumin 2.5 L (3.4-5.0) gm/dl Intake and Output 01/19/23 01/19/23 01/19/23 06:59 14:59 22:59 Intake Total 85.037 / 1619.500 262.580 / 9925.780 5195 / 1309.580 Output Total Balance 40.037 / 1524.500 247.580 / 5831.303 9515 / 1294.580 Intake: IV 85.037 / 1619.500 262.580 / 3679.911 0560 / 1309.580 AcetylCYSTEINE 9,400 mg In 1047 / 1047 Dextrose 5% 1,000 ml @ 62.5 mls /hr IV ONE ONE Rx#:[id number] Magnesium Sulfate / D5w 1 gm In 100 / 100 100 ml @ 50 mls/hr IV ONE ONE Rx#:[id number] Norepinephrine/D5w 4 mg In 250 34.08 / 34.08 ml @ 0.05 MCG/KG/MIN 17.644 mls /hr IV .[id number] [facility] Rx#: [id number] Sodium Chloride 0.9% 1000ML 1, 18.75 / 18.75 0 / 0 000 ml @ 5 mls/hr IV .Q24H [facility] Rx#:[id number] dexMEDEtomidine 200 mcg In 50 66.287 / 66.287 100.000 / 100.000 ml @ 0.4 MCG/KG/HR 9.41 mls/hr IV .Q5H19M [facility] Rx#:[id number] fentaNYL citrate 2,500 mcg In 28.5 / 28.5 250 ml @ 0 MCG/HR IV .Q0M [facility] Rx#:[id number] Oral 0 / 0 0 / 0 Output: Urine Amount (Catheter) Sauer/Indwelling # Bowel Movements 0 / 0 Other: Weight 97 kg 97 kg Weight Measurement Method Built in [facility] Patient Weight 01/20/23 06:59 Weight 97 kg Diagnostic Findings Telemetry: Atrial fibrillation, initially a rapid heart rate, now postintubation sedation his heart rate is well controlled. PG Care Time/CCT Total # of Minutes Spent Total Time Spent with Patient: Total time spent is greater than 50% in coordination of care (as documented) at patient's floor/unit and/or counseling patient: Coding Level of Care Code 64966 SUB INP/OBS CARE 2/35MIN Diagnoses Syncope R55 Encounter type: initial encounter V-tach I47.20 Atrial fibrillation with RVR I48.91 Cardiomyopathy I42.9 (1) Syncope Encounter type: initial encounter
[2023-01-19] MEDS: TUBE FEEDING WATER FLUSH OG SCH ×2 (17:48→20:56)
[2023-01-19] MEDS ORDERED: HEPARIN SODIUM/DEXTROSE 25,000 UNITS/500 ML BAG IV SCH ×2 (18:15→20:45)
[2023-01-19] MEDS: Heparin IV Adult Wt-Based Standard *NO* Bolus Protocol IV SCH ×2 (18:34)
[2023-01-19] MEDS ORDERED: Heparin IV Adult Wt-Based Low-Dose *NO* Bolus Protocol IV STA (20:20)
[2023-01-19] MEDS: VENLAFAXINE HCL XR 75 MG CAPXR PO SCH (20:52)
[2023-01-19] MEDS: ATORVASTATIN 40 MG TAB PO SCH (20:55)
[2023-01-19] MEDS: allopurinoL 300 MG TAB PO SCH (20:56)
--- NOTE | 2023-01-19 21:53 | Hospitalist Progress Note ---
Date of Service January 19, 2023 Assessment & Plan (1) Acute respiratory failure with hypoxia: Plan: 62 yo male is intubated and sedated in the ICU. Patient is intubated due to acute respiratory failure secondary to a fib, cardiomyopathy. Appreciate input from ICU team. (2) Atrial fibrillation with RVR: Plan: vtach in ER, self terminated in patient w/ hx afib and CHF w/ EF 20-25%, ESRD on HD M// presenting after fall at home (on Eliquis) striking head on toilet and per continued weakness at home since discharge earlier this month along with bleeding issues with his perm cath Admit ICU continue amio gtt (on amiodarone 200mg QAM) Mag 2.0 but ordered 1gm IV Lasix 40mg IV x 1 now, metoprolol 5mg IV x 1 now --> improvement in BP from low 115/72 to 128/77, HR currently down to 128/77 Metoprolol q30min x 3 doses for afib rvr and will monitor Ca 8.5, ionized ca 1.03 L , will give 1gm IV ca-gluconate Check ABG for weakness/concerns/chronic resp failure/home O2 use likely 2nd to volume overload (however patient states feels at baseline on exam, evidence of overload noted) supplemental O2 to maintain sats checking TSH (do not see any in system previously) Trop elevated to 2275 (priors 200s), will trend. Suspect demand ischemia from afib w/ RVR and Cardiology consulted -- discussed w/ Dr Santiago, Dr Miller to eval , consideration for pacer given low EF/vtach Nephrology consulted given ESRD on HD M//, follows with [facility] and due for HD today Holding Eliquis 2.5 mg BID (CT head negative on admit) -- note, patient on reduced dose eliquis but age >80 or wt <60kg and technically should be on 5mg BID Check iron labs for anemia as well, needing to monitor LFTs but suspect given reports of hypotension potentially shock liver on differential. monitor on repeat (does have cirrhosis on imaging, denied ETOH use) (3) V-tach: Plan: 1gm IV mag monitor on telemetry (4) Acute on chronic HFrEF (heart failure with reduced ejection fraction): Plan: prior ECHO, EF 20-25%, reportedly tachycardia induced NO LONGER ON ENTRESTO per , hypotension/CKD Unfortunately patient not on his usual metoprolol 200mg daily due to hypotension, however likely contributing to afib w/ rapid ventricular response as above checking TSH repeat ECHO, trend trop, cards on consult as above Add BNP to AM labs amiodarone gtt, metoprolol for afib rvr, no further cardizem avoiding dig in patient ESRD Cardiology consulted as above, possible pacer/defibrillator (5) Weakness: Plan: eventually will need pt/ot evals CT head negative (6) Fall: Plan: as above, likely will need PT/OT once dealing w/ acute isssues (7) CAD (coronary artery disease): Plan: s/p CABG, follows with Dr Headley continue aspirin, statin, eliquis amiodarone for afib likely needs metoprolol entresto previously on but no longer taking (8) Cardiomyopathy: Plan: as noted, repeat ECHO pending (9) Paroxysmal atrial flutter: Plan: hx of on amiodarone 200mg daily on amiodarone gtt as above, cards consulted (10) ESRD (end stage renal disease): Plan: nephrology consulted, Dr Mcdonald contacted (11) Hemodialysis catheter malfunction: Plan: recent malfunction, perm cath addressed by Dr Santiago 01/14 (12) CKD (chronic kidney disease) stage 4, GFR 15-29 ml/min: Plan: nephrology consulted for ESRD avoid nephrotoxins/renal dose meds when able BMP in AM (13) Type II diabetes mellitus: Plan: no on any agents at home, last A1c 6.4 and reports BSGs into the 40s at home at night BSG AC/HS for now and monitor for any lows -- possibly 2nd to decreased PO intake over last several weeks w/ associated n/vomiting (14) Cirrhosis: Plan: Patient/ UNAWARE of evidence for cirrhosis, denied etoh use at home INR 2, LFTs elevated -- previously normal last admit ?shock from hypotension Monitor LFTs/Meld labs Consideration for GI consult inpatient vs outpt (15) Abnormal finding on lung imaging: Plan: Irregular nodular airspace opacities measure up to 13 mm. These are new from a [address] and may be related to edema. Likely from volume overload but will need f/u imaging 3-4 months to ensure resolution Plan patient to be admitted to ICU Of note, ROBERT Crawford for Mr River in event unable to make decisions for himself Admission and Anticipated Discharge Date Admission Date: January 18, 2023 Subjective 62 yo male is intubated. Review of Systems Review of Systems: All systems reviewed & are unremarkable except as noted in HPI & below Physical Exam Physical Exam: General: WD chronically ill, patient is intubated. HEENT: head w/ hematoma to frontal scalp, trachea midline, mmm, +JVD CV: irregularly irregular, +S3, LE edema, calves nontender GI: +BS, DISTENDED, obese, nontender MSK/Neuro:sedated Psych: sedated Results & Data Results & Data Vital Signs (Past 12 Hours) Vital Signs Temp Pulse Resp BP Pulse Ox FiO2 01/19/23 21:15 94 H 15 99 01/19/23 21:01 82 15 84/57 L 100 01/19/23 20:24 102 H 18 99 30 01/19/23 20:00 30 01/19/23 19:01 84 15 121/70 100 01/19/23 19:42 36.4 C L 01/19/23 16:00 30 01/19/23 16:00 85 118/57 L 01/19/23 15:00 100 H 15 97 30 01/19/23 15:00 83 16 98 01/19/23 15:00 145/41 H 01/19/23 14:00 92 H 16 99 01/19/23 13:00 88 13 98 01/19/23 13:00 142/86 H 01/19/23 12:00 83 15 98 01/19/23 12:00 134/82 01/19/23 12:00 30 01/19/23 12:00 87 110/54 L 01/19/23 11:00 94 H 15 98 01/19/23 11:00 141/109 H 01/19/23 10:00 92 H 15 98 01/19/23 11:00 98 H 15 98 40 PG Care Time/CCT Total # of Minutes Spent Total Time Spent with Patient: Total time spent is greater than 50% in coordination of care (as documented) at patient's floor/unit and/or counseling patient: Coding Level of Care Code 44876 SUB INP/OBS CARE 2/35MIN Diagnoses Acute respiratory failure with hypoxia J96.01 Atrial fibrillation with RVR I48.91 V-tach I47.20 Acute on chronic HFrEF (heart failure with reduced ejection fraction) I50.23 Weakness R53.1 Fall W19.XXXA CAD (coronary artery disease) I25.10 Cardiomyopathy I42.9 Paroxysmal atrial flutter I48.92 ESRD (end stage renal disease) N18.6 Hemodialysis catheter malfunction T82.41XA CKD (chronic kidney disease) stage 4, GFR 15-29 ml/min N18.4 Type II diabetes mellitus E11.9 Cirrhosis K74.60 Abnormal finding on lung imaging R91.8
[2023-01-20] MEDS: ICU Protocol for HYPERglycemia SCH ×4 (00:09→18:32)
[2023-01-20] MEDS: TUBE FEEDING WATER FLUSH OG SCH ×3 (00:09→09:27)
[2023-01-20] MEDS: dexMEDEtomidine 200 MCG/50 ML BAG IV SCH ×2 (01:08→05:08)
[2023-01-20] MEDS: Heparin IV Adult Wt-Based Standard *NO* Bolus Protocol IV SCH (01:12)
[2023-01-20 03:56] LABS: Partial Thromboplastin Ratio 3.3
[2023-01-20 03:57] LABS: BUN Creatinine Ratio 6.1 (10-20); Calcium 8.5 mg/dl (8.6-10.3); Creatinine Clr Calc Pharmacy 12.2 ml/min; Est GFR (Non-African American) 7.8 ml/min; Magnesium 2.1 mg/dl (1.7-2.4); Phosphorus 3.7 mg/dl (2.5-4.9); Potassium 3.8 mmol/L (3.5-5.1)
[2023-01-20 04:27] LABS: iSTAT Allen Test Pass; iSTAT Art Bld Gas pCO2 Correct 36 mmHg (35-46); iSTAT Art Bld Gas pH Corrected 7.427 (7.35-7.45); iSTAT Arterial Blood Gas HCO3 24 meg/L (19-24); iSTAT Arterial Blood Gas pCO2 36 mmHg (35-46); iSTAT Arterial Blood Gas pH 7.42 (7.35-7.45); iSTAT Arterial Blood Gas pO2 88 mmHg (80-95); iSTAT Arterial Blood Gas pO2 C 86; iSTAT Carbon Dioxide 25 mmol/L (24-31); iSTAT FiO2 30 %; iSTAT Hematocrit 29 % (42-52); iSTAT Hemoglobin 9.9 g/dl (14.0-18.0); iSTAT Potassium 3.5 mmol/L (3.3-5.0); iSTAT Site Art Line; iSTAT Sodium 129 mmol/L (135-144)
[2023-01-20] MEDS: AMIODARONE / D5W 360 MG/200 ML BAG IV SCH ×2 (05:09→16:21)
--- NOTE | 2023-01-20 07:23 | XRay Report ---
XR chest 1V portable HISTORY: Resp failure COMPARISON: 01/19/2023. FINDINGS: No pneumothorax. No pleural effusions. There are low lung volumes. The cardiac silhouette r emains mildly enlarged. There are poststernotomy changes. The nasogastric tube terminates below the d iaphragm. Right jugular central venous catheter terminates at the SVC. Mild pulmonary vascular conges tion has improved. The tip the endotracheal tube is not well visualized and partially obscured by ove rlying sternotomy wires. This is likely a proximal a 1.9 cm from the shabnam. IMPRESSION: 1. The tip of the endotracheal tube is partially obscured but appears to be approximately 1.9 cm from the shabnam. 2. Improvement in the pulmonary vascular congestion. ACT 112: Negative or not required by law. Electronically signed by: Juwan Mo M.D. 01/20/2023 7:22 AM
--- NOTE | 2023-01-20 08:08 | Critical Care Progress Note ---
Date of Service January 20, 2023 Assessment & Plan (1) V-tach: (2) Syncope: (3) Transaminitis: (4) Cirrhosis: (5) Atrial fibrillation with RVR: Plan Reason Critically Ill: 62-year-old male here with a history significant for DM, CAD, HTN, CKD on hemodialysis admitted after sustaining a fall from a syncopal episode at home in the bathroom who was transferred to the ICU. Neuro - Altered Mental Status CAM ICU- Negative Sedation- none * Precedex discontinued. Levophed on hold. * Sedation decreased and later discontinued. SBT and later extubation successful. * Suspect multifactorial etiology including missed hemodialysis, hypoxia, worsening HFrEF * Head CT (01/18) without intracranial abnormality Cardiac - A. Fib with RVR, Ventricular Tachycardia, Elevated Troponin, Acute on Chronic HFrEF * Early in admission had a run of a wide-complex tachycardia, was likely ventricular tachycardia * Rate controlled currently at 80s-90s * Has been in Atrial Flutter, no additional runs of VT in last day * Digoxin level of 3.8 today, up from 2.9 yesterday * Echo with EF of 20-25%, severe left ventricular dysfunction. May require ICD placement. Respiratory - Respiratory Distress * Extubated, currently breathing comfortably on NC oxygen. No acute respiratory distress. * Clinically appears to have increased work of breathing since dx of COVID last month GI - Transaminitis, Ischemic vs. Congestive Hepatopathy * New finding on imaging of cirrhosis, suspect secondary to BROWN and/or worsen ing heart function * Transaminitis downtrending- Repeat Liver function test pending this a.m. * Hepatitis panel non-reactive * Salicylate and Acetaminophen levels normal (<3), completed course of N-Acetyl Cysteine * Speech Therapy consulted for appropriateness of resuming diet Renal/Lytes - CKD Requiring Dialysis * Plan to receive dialysis this afternoon * MWF dialysis * Potassium 3.8, Phosphorous 3.7, Magnesium 2.1 - * Minimal urine output (0.01 mL/kg/hr), in setting of CKD requiring hemodialysis * Sauer catheter removed yesterday Endo - Diabetes Mellitus Type II * Not on any agents at home, will continue BSG AC/HS for now and monitor for any lows * Follow ICU hyperglycemic protocols Heme - Normocytic Anemia * Hgb 9.9 today, up from 8.4 yesterday * Will trend hemoglobin ID - * Hepatitis panel non-reactive * COVID-19 negative * MRSA nares negative Lines/IV Access - * Peripheral IVs in place at bilateral ACs, hemodialysis catherer * IJ line in place DVT Prophylaxis - * Heparin drip * Consider transition back to [facility] later today Thank you for allowing us to be part of this patient's care. Please refer to Dr. Suero's documentation for any further recommendations. Admission and Anticipated Discharge Date Admission Date: January 18, 2023 Supervising Physician Co-Signing Physician Notes Patient seen and examined with the resident physician. Agree with the assessment and plan aside for any additions/exceptions noted: Patient successfully extubated and doing well off pressors and off Precedex. Heart rate better controlled with p.o. metoprolol and IV amiodarone. Digoxin level elevated. Patient to undergo dialysis today for ESRD. EP cardiology following. Speech evaluation today. NAC protocol finished. Transaminitis improving. Possible downgrade after dialysis today. Continue BiPAP with sleep. Patient with severe systolic CHF due to cardiomyopathy. CRITICAL CARE TIME - I have personally spent 34 minutes of critical care time in the direct managem ent of this patient. This is a life/limb threatening event. This includes time spent evaluating patient, direct bedside care, chart review, placing orders, interpretation of diagnostic studies, discussion with consultants, patient, and family members, as well as other required patient management activities. This time is exclusive of all separately billable procedures, and teaching time and separate from and in addition to any other critical care service time. Subjective Patient was seen and examined at bedside. Mr. Holman was moving around and biting ETT overnight requiring an increase in Precedex, but is more awake and alert this morning. His eyes are open, able to move limbs independently and follow basic commands. He is able to "nod" yes/no to some questions. He denies having pain currently. Later this morning, patient weaned of Precedex and was extubated- now resting comfortably on NC supplemental oxygen. Review of Systems Review of Systems: Difficult to obtain Physical Exam Constitutional: Somnolent but awake at times. No acute distress. Eyes: No conjunctival abnormalities. ENMT: Moist mucous membranes, ET tube in place. Neck: Right IJ in place. Respiratory: Mechanically ventilated. No cough. Diminished breath sounds. Cardiovascular: Irregular rhythm, normal rate. No murmur/rub/gallop. Gastrointestinal (Abdomen): Soft, nontender, nondistended. No masses palpated. Musculoskeletal: Able to move limbs independently. Skin: Raised hematoma at forehead. Psychiatric: Able to communicate yes/no answers appropriately to questions. Opens eyes. Results & Data Results & Data Vital Signs (Past 12 Hours) Vital Signs Temp Pulse Resp BP Pulse Ox O2 Del Method FiO2 01/20/23 07:52 94 H 12 99 30 01/20/23 07:19 88 01/20/23 06:01 88 16 148/97 H 99 01/20/23 05:39 125/61 01/20/23 05:00 93 H 18 125/61 98 01/20/23 04:00 79 15 138/88 93 01/20/23 03:01 81 15 137/81 98 01/20/23 04:12 86 16 95 30 01/20/23 03:52 36.7 C 01/20/23 03:00 84 15 137/81 98 01/20/23 02:01 76 15 120/86 98 01/20/23 01:16 84 15 116/81 99 01/19/23 23:19 97 H 01/20/23 00:09 93 H 17 120/90 98 01/19/23 23:00 93 H 15 97 01/20/23 00:16 30 01/19/23 23:35 89 15 99 30 01/19/23 22:05 100 H 15 133/95 98 01/19/23 20:00 Mechanical Vent 30 01/19/23 21:15 94 H 15 99 01/19/23 21:01 82 15 84/57 L 100 01/19/23 20:24 102 H 18 99 30 01/19/23 20:00 30 Diagnostic Findings Chest X-Ray 01/20/23 07:00 XR chest 1V portable HISTORY: Resp failure COMPARISON: 01/19/2023. FINDINGS: No pneumothorax. No pleural effusions. There are low lung volumes. The cardiac silhouette remains mildly enlarged. There are poststernotomy changes. The nasogastric tube terminates below the diaphragm. Right jugular central venous catheter terminates at the SVC. Mild pulmonary vascular congestion has improved. The tip the endotracheal tube is not well visualized and partially obscured by overlying sternotomy wires. This is likely a proximal a 1.9 cm from the shabnam. IMPRESSION: 1. The tip of the endotracheal tube is partially obscured but appears to be approximately 1.9 cm from the shabnam. 2. Improvement in the pulmonary vascular congestion. ACT 112: Negative or not required by law. Electronically signed by: Juwan Mo M.D. 01/20/2023 7:22 AM Resident Activity Tracking Resident Involvement: Resident Care Provided Care Provided: Adult Hospital Medicine
--- NOTE | 2023-01-20 10:10 | Billing Data ---
Date of Service January 20, 2023 Coding Level of Care Code 35711 CRITICAL CARE 1ST 30-74M Time Spent (min) 34
--- NOTE | 2023-01-20 10:15 | Nephrology Progress Note ---
Date of Service January 20, 2023 Assessment & Plan Admission and Anticipated Discharge Date Admission Date: January 18, 2023 Subjective Subjective S----Now extubated but still not responding to command. needing some levophed. But BP is good in 130's sys. PHYSICAL EXAMINATION: GENERAL: A middle-aged white male who appears to be significantly older than his stated age.extubated now CHEST: Bilateral decreased breath sounds, poor inspiratory effort. CARDIOVASCULAR: S1 and S2, tachycardic. Soft systolic murmur heard. ABDOMEN: Soft, nontender. EXTREMITIES: Show no edema. SKIN: Shows no rashes. LABORATORY TEST: Reviewed. ASSESSMENT AND PLAN: A 62-year-old male with end-stage renal disease, on chronic hemodialysis after recent worsening of his CKD IV in the setting of COVID infection and sepsis, now admitted with fall/Syncope/Cardiac rhythm issues with Afibb and V tach. . I have been consulted for dialysis management. 1. End-stage renal disease: CXr shows very mild pulm congestion but still critically ill needing Pressors. Will plan for dialysis later today for 3.5 hrs and try to take about 2 kilo if we can on 3 k bath. . No issues with electrolytes. k is actually low. better ABG now. CXR seems slightly better. 2 cardiac--Low LVEF of 20% + multiple cardiac rhythm issues. V tach + Afibb. per cardiology. Results & Data Vital Signs (Past 12 Hours) Vital Signs Temp Pulse Resp BP Pulse Ox O2 Del Method FiO2 01/20/23 08:00 37.2 C 01/20/23 08:01 139/76 01/20/23 08:01 83 12 139/76 98 CPAP, Mechanical Vent 30 01/20/23 07:01 78 16 127/95 97 Mechanical Vent 30 01/20/23 07:00 83 15 98 01/20/23 08:00 CPAP, Mechanical Vent 30 01/20/23 08:00 30 01/20/23 08:00 94 H 116/65 01/20/23 07:52 94 H 12 99 30 01/20/23 07:19 88 01/20/23 06:01 88 16 148/97 H 99 01/20/23 05:39 125/61 01/20/23 05:00 93 H 18 125/61 98 01/20/23 04:00 79 15 138/88 93 01/20/23 03:01 81 15 137/81 98 01/20/23 04:12 86 16 95 30 01/20/23 03:52 36.7 C 01/20/23 03:00 84 15 137/81 98 01/20/23 02:01 76 15 120/86 98 01/20/23 01:16 84 15 116/81 99 01/19/23 23:19 97 H 01/20/23 00:09 93 H 17 120/90 98 01/19/23 23:00 93 H 15 97 01/20/23 00:16 30 01/19/23 23:35 89 15 99 30
[2023-01-20] MEDS ORDERED: SODIUM CHLORIDE 0.9% 1000ML 1,000 ML IV PRN (10:18)
[2023-01-20] MEDS ORDERED: EPOETIN ALFA 10,000 UNITS/ML VIAL IV ONE (10:30)
[2023-01-20] MEDS ORDERED: IRON SUCROSE 100 MG in SYRINGE 0 ML IV ONE (10:30)
[2023-01-20 10:31] LABS: Albumin Level 2.5 gm/dl (3.4-5.0); Bilirubin Direct 0.4 mg/dl (0-0.2); Total Protein 5.4 gm/dl (6.0-8.3)
[2023-01-20] MEDS: METOPROLOL TARTRATE 25 MG TAB PO SCH ×2 (11:44→20:52)
[2023-01-20] MEDS: PANTOprazole 40 MG TAB PO SCH (11:44)
[2023-01-20] MEDS: ASPIRIN 81 MG ECTAB PO SCH (11:44)
[2023-01-20 11:52] LABS: Partial Thromboplastin Ratio 3.6
[2023-01-20 12:11] LABS: Partial Thromboplastin Time 99.4 Seconds (21.0-31.0)
--- NOTE | 2023-01-20 13:46 | Electrocardiogram Report ---
Test Reason : Blood Pressure : / mmHG Vent. Rate : 093 BPM Atrial Rate : 244 BPM P-R Int : 000 ms QRS Dur : 112 ms QT Int : 390 ms P-R-T Axes : 000 021 136 degrees QTc Int : 484 ms Atrial flutter with variable A-V block Incomplete left bundle block Marked ST abnormality, possible lateral subendocardial injury Prolonged QT Abnormal ECG When compared with ECG of 19-JAN-2023 07:12, Criteria for Septal infarct are no longer Present T wave inversion less evident in Anterolateral leads Confirmed by Yoandy Santiago ([id number] on 01/20/2023 1:45:47 PM Referred By: REFERRED SELF Confirmed By:Yoandy Santiago
[2023-01-20] MEDS ORDERED: GLUCOSE 10 TAB/TUBE PO PRN (14:52)
[2023-01-20] MEDS ORDERED: GLUCAGON FOR INJ 1 MG VIAL SQ PRN (14:52)
[2023-01-20] MEDS ORDERED: DEXTROSE 50% 50 ML SYRINGE IV PRN (14:52)
[2023-01-20] MEDS ORDERED: CARBOHYDRATES FOR HYPOGLYCEMIA PO PRN (14:52)
[2023-01-20] MEDS ORDERED: GLUCOSE 40% GEL 15 GM TUBE PO PRN (14:52)
[2023-01-20] MEDS ORDERED: METOPROLOL TARTRATE 1 MG/ML VIAL IV STA ×3 (16:01→16:38)
--- NOTE | 2023-01-20 16:07 | Cardiology Progress Note ---
Date of Service January 20, 2023 Assessment & Plan (1) Syncope: (2) V-tach: (3) Atrial fibrillation with RVR: (4) Cardiomyopathy: Plan 1. Syncope: The cause of syncope is likely arrhythmic, possibilities include going into atrial fibrillation and a rapid heart rate which seems the most likely given his family history obtained today or an episode of ventricular tachycardia which also occurred in the emergency room. He does also have a history of labile blood pressure with hypotension requiring discontinuation of beta-blockade so orthostasis is also a possibility, possibly in combination with an arrhythmia. 2. Ventricular tachycardia: I reviewed his rhythm strips and the wide-complex rhythm does appear to be ventricular tachycardia. It does not start with an early beat to suggest an aberrant rhythm, it is very regular and wider than his conducted rhythm during atrial fibrillation although the rate is actually similar. It terminates abruptly which is also consistent with a ventricular arrhythmia. A twelve-lead electrocardiogram was not done during the arrhythmia. I do not believe that has recurred. At this point I would continue intravenous amiodarone although his liver function tests remain abnormal but significantly improving so I believe that is due to passive congestion or shock liver not amiodarone toxicity. His electrolytes are not terribly abnormal. We may need to consider an ICD in the future. 3. Atrial fibrillation: He presents in atrial fibrillation with a rapid heart rate, unfortunately when he first had this rhythm on his prior admission attempts at rate control were unsuccessful. I added digoxin to his regimen and he received 2 doses of 0.25 mg each on January 18, 2023, on the morning of January 19, 2023 his level was 2.7. I repeated the level today thinking it might be an error and today his digoxin level is 3.8. I cannot really understand these levels, his loading dose would normally be a milligram and to have that high level after just 2 doses for total of 0.5 mg is very odd and the level rising 36 hours after receiving the intravenous dose does not make sense. I am going to recheck his level tomorrow. At the moment his rate is adequately controlled, I would not give Digibind. 4. Cardiomyopathy: He has a relatively recent cardiomyopathy, this occurred somewhere between October 02, 2022 and December 20, 2022. An echocardiogram was done on arrival in the emergency room and confirms severe left ventricular dysf unction with an ejection fraction of 20 to 25%. We will need to try to get him on more appropriate heart failure medications, this has been limited by hypotension I believe. Certainly we cannot do much at the moment. 5. Amiodarone therapy: I would continue his amiodarone in IV form. If we switch to oral he will likely have a drop in his level, at the moment I do not want to do that. The drug takes some time to build up and therefore I would not cardiovert at the moment as he would likely have recurrent atrial fibrillation if we did that. In the future we will probably want to do that. Fortunately his liver function tests have been decreasing and therefore are not due to amiodarone toxicity. Admission and Anticipated Discharge Date Admission Date: January 18, 2023 Subjective He seems to be doing a little better at the time of my evaluation around noon today. He is responding although with simple answers, but he tells me that he feels fine. His family is also present and I talked to them. It sounds as though this event was very sudden and he was evaluated several times in the days that preceded the event and I would expect that a high heart rate would have been detected therefore it probably was the sudden increase in heart rate that helped precipitate his presentation. At the moment he does not have any complaints. Physical Exam Physical Exam: Constitutional: Alert, cooperative and in only mild distress. HEENT: Unremarkable Neck: No jugular venous distention, carotid pulses are irregular but otherwise normal and equal bilaterally without bruits. Pulmonary: Clear to auscultation bilaterally. Cardiac: Irregular rhythm with no murmur, gallop or rub. Abdomen: Soft, nontender with normal bowel sounds. Extremities: No edema. Neurologic: No focal findings. Gait was not tested. Skin: No rash, ecchymoses or petechiae. Results & Data Vital Signs (Past 12 Hours) Vital Signs Temp Pulse Pulse Resp BP Pulse Ox O2 Del Method 01/20/23 15:30 122 H 164/71 H 01/20/23 15:00 85 158/61 H 01/20/23 14:30 91 H 155/66 H 01/20/23 14:00 92 H 151/65 H 01/20/23 13:45 36.9 C 96 H 01/20/23 14:00 93 H 21 156/84 H 100 01/20/23 13:01 102 H 20 135/104 H 97 01/20/23 12:00 108 H 22 92 01/20/23 11:00 101 H 23 99 01/20/23 10:00 93 H 31 H 98 01/20/23 09:01 93 H 19 131/87 95 Nasal Cannula 01/20/23 12:00 83 139/76 01/20/23 08:00 37.2 C 01/20/23 08:01 139/76 01/20/23 08:01 83 12 139/76 98 CPAP, Mechanical Vent 01/20/23 07:01 78 16 127/95 97 Mechanical Vent 01/20/23 07:00 83 15 98 01/20/23 08:00 CPAP, Mechanical Vent 01/20/23 08:00 01/20/23 08:00 94 H 116/65 01/20/23 07:52 94 H 12 99 01/20/23 07:19 88 01/20/23 06:01 88 16 148/97 H 99 01/20/23 05:39 125/61 01/20/23 05:00 93 H 18 125/61 98 01/20/23 04:00 79 15 138/88 93 01/20/23 04:12 86 16 95 O2 Flow Rate FiO2 01/20/23 15:30 01/20/23 15:00 01/20/23 14:30 01/20/23 14:00 01/20/23 13:45 01/20/23 14:00 01/20/23 13:01 01/20/23 12:00 01/20/23 11:00 01/20/23 10:00 01/20/23 09:01 2 01/20/23 12:00 01/20/23 08:00 01/20/23 08:01 01/20/23 08:01 30 01/20/23 07:01 30 01/20/23 07:00 01/20/23 08:00 30 01/20/23 08:00 30 01/20/23 08:00 01/20/23 07:52 30 01/20/23 07:19 01/20/23 06:01 01/20/23 05:39 01/20/23 05:00 01/20/23 04:00 01/20/23 04:12 30 Laboratory Results Cardiac Enzymes 01/20/23 01/20/23 Range/Units 03:06 03:06 AST 666 H Cancelled (13-39) U/L Coagulation 01/20/23 01/20/23 Range/Units 03:06 11:06 APTT 92.0 H* 99.4 H* (21.0-31.0) Seconds Comprehensive Metabolic Panel 01/20/23 01/20/23 Range/Units 03:06 03:06 Sodium 132 L (136-145) mmol/L Potassium 3.8 (3.5-5.1) mmol/L Chloride 91 L (98-107) mmol/L Carbon Dioxide 23 (21-32) mmol/L BUN 42 H (6-23) mg/dl Creatinine 6.86 H* D (0.6-1.4) mg/dl Glucose 139 H (70-99(Fasting)) mg/dl Calcium 8.5 L (8.6-10.3) mg/dl Direct Bilirubin 0.4 H Cancelled (0-0.2) mg/dl AST 666 H Cancelled (13-39) U/L ALT 207 H Cancelled (7-52) U/L Alkaline Phosphatase 103 Cancelled (34-104) U/L Total Protein 5.4 L Cancelled (6.0-8.3) gm/dl Albumin 2.5 L Cancelled (3.4-5.0) gm/dl Intake and Output 01/20/23 01/20/23 01/20/23 06:59 14:59 22:59 Intake Total 607.766 / 2401.099 549.607 / 549.607 Output Total 100 / 100 Balance 607.766 / 2271.099 449.607 / 449.607 Intake: IV 437.766 / 2076.099 199.607 / 199.607 Amiodarone / D5w 360 mg In 200 156.702 / 335.670 31.73 / 31.73 ml @ 0.5 MG/MIN 16.667 mls/hr IV .Q12H ROXY Rx#:[id number] Heparin Sodium/Dextrose 25,000 139.967 / 139.967 118.667 / 118.667 units In 500 ml @ 650 UNITS/HR 13 mls/hr IV .Q24H ROXY Rx#: [id number] Norepinephrine/D5w 4 mg In 250 47.145 / 126.137 13.490 / 13.490 ml @ 0.05 MCG/KG/MIN 17.644 mls /hr IV .[id number] ROXY Rx#: [id number] dexMEDEtomidine 200 mcg In 50 93.952 / 298.825 35.72 / 35.72 ml @ 0.4 MCG/KG/HR 9.41 mls/hr IV .Q5H19M ROXY Rx#:[id number] Oral 300 / 300 Tube Feeding 110 / 175 20 / 20 Tube Irrigant 60 / 150 30 / 30 Output: Urine 100 / 100 # Bowel Movements 0 / 0 Other: # Unmeasured Voids 0 Weight 101.2 kg 101.2 kg Weight Measurement Method [facility] Weight 01/21/23 06:59 Weight 101.2 kg Diagnostic Findings Telemetry: Atrial fibrillation, heart rate averaging around 100 bpm PG Care Time/CCT Total # of Minutes Spent Total Time Spent with Patient: Total time spent is greater than 50% in coordination of care (as documented) at patient's floor/unit and/or counseling patient: Coding Level of Care Code 73480 SUB INP/OBS CARE 2/35MIN Diagnoses Syncope R55 Encounter type: initial encounter V-tach I47.20 Atrial fibrillation with RVR I48.91 Cardiomyopathy I42.9 (1) Syncope Encounter type: initial encounter
[2023-01-20] MEDS ORDERED: INSULIN ASPART PER UNIT CHARGE SC SCH (16:30)
[2023-01-20] MEDS: VENLAFAXINE HCL XR 75 MG CAPXR PO SCH (20:51)
[2023-01-20] MEDS: ATORVASTATIN 40 MG TAB PO SCH (20:52)
[2023-01-20] MEDS: allopurinoL 300 MG TAB PO SCH (20:52)
[2023-01-20 20:54] LABS: Partial Thromboplastin Ratio 2.8
--- NOTE | 2023-01-20 22:54 | Hospitalist Progress Note ---
Date of Service January 20, 2023 Assessment & Plan (1) Acute respiratory failure with hypoxia: Plan: 62 yo male is intubated and sedated in the ICU. Patient is intubated due to acute respiratory failure secondary to a fib, cardiomyopathy. Appreciate input from ICU team. Off sedation and ressors, Patient was later successfully extubated on 01/20 Patient will be downgraded after dialysis. (2) Atrial fibrillation with RVR: Plan: vtach in ER, self terminated in patient w/ hx afib and CHF w/ EF 20-25%, ESRD on HD M/W/F presenting after fall at home (on Eliquis) striking head on toilet and per continued weakness at home since discharge earlier this month along with bleeding issues with his perm cath Admit ICU continue amio gtt (on amiodarone 200mg QAM) Cardiology consulted -- discussed w/ Dr Santiago, Dr Miller to eval , consideration for pacer given low EF/vtach Nephrology consulted given ESRD on HD M//, [facility] Holding Eliquis 2.5 mg BID (CT head negative on admit) -- note, patient on reduced dose eliquis but age >80 or wt <60kg and technically should be on 5mg BID Patient currently on amiodarone. Appreciate input from cardiology: V tach likely cause of syncope, will hold off electrical cardioversion as patient will likely revert back to a fiib. (3) V-tach: Plan: 1gm IV mag monitor on telemetry (4) Acute on chronic HFrEF (heart failure with reduced ejection fraction): Plan: prior ECHO, EF 20-25%, reportedly tachycardia induced NO LONGER ON ENTRESTO per , hypotension/CKD Unfortunately patient not on his usual metoprolol 200mg daily due to hypotension, however likely contributing to afib w/ rapid ventricular response as abov amiodarone gtt, metoprolol for afib rvr, avoiding dig in patient ESRD Cardiology consulted as above (5) Weakness: Plan: eventually will need pt/ot evals CT head negative (6) Fall: Plan: as above, likely will need PT/OT once dealing w/ acute isssues (7) CAD (coronary artery disease): Plan: s/p CABG, follows with Dr Headley continue aspirin, statin, eliquis amiodarone for afib entresto previously on but no longer taking (8) Cardiomyopathy: Plan: as noted, repeat ECHO pending (9) Paroxysmal atrial flutter: Plan: hx of on amiodarone 200mg daily on amiodarone gtt as above, cards consulted (10) ESRD (end stage renal disease): Plan: nephrology consulted, Dr Mcdonald contacted (11) Hemodialysis catheter malfunction: Plan: recent malfunction, perm cath addressed by Dr Santiago 01/14 (12) CKD (chronic kidney disease) stage 4, GFR 15-29 ml/min: Plan: nephrology consulted for ESRD avoid nephrotoxins/renal dose meds when able BMP in AM (13) Type II diabetes mellitus: Plan: no on any agents at home, last A1c 6.4 and reports BSGs into the 40s at home at night BSG AC/HS for now and monitor for any lows -- possibly 2nd to decreased PO intake over last several weeks w/ associated n/vomiting (14) Cirrhosis: Plan: Patient/ UNAWARE of evidence for cirrhosis, denied etoh use at home INR 2, LFTs elevated -- previously normal last admit ?shock from hypotension Monitor LFTs/Meld labs Consideration for GI consult inpatient vs outpt (15) Abnormal finding on lung imaging: Plan: Irregular nodular airspace opacities measure up to 13 mm. These are new from a [address] and may be related to edema. Likely from volume overload but will need f/u imaging 3-4 months to ensure resolution Plan patient to be admitted to ICU Of note, YvetteROBERT for Mr Holman in event unable to make decisions for himself Admission and Anticipated Discharge Date Admission Date: January 18, 2023 Subjective 62 yo male intubated. Review of Systems Review of Systems: All systems reviewed & are unremarkable except as noted in HPI & below Physical Exam Physical Exam: General: WD chronically ill, patient is intubated. HEENT: head w/ hematoma to frontal scalp, trachea midline, mmm, +JVD CV: irregularly irregular, +S3, LE edema, calves nontender GI: +BS, DISTENDED, obese, nontender MSK/Neuro:sedated Psych: intubated Results & Data Results & Data Vital Signs (Past 12 Hours) Vital Signs Temp Pulse Pulse Resp BP BP BP 01/20/23 21:45 01/20/23 21:45 37 C 86 17 149/93 H 01/20/23 18:00 83 23 01/20/23 17:25 36.8 C 75 188/76 H 01/20/23 17:00 125 H 175/75 H 01/20/23 16:00 124 H 01/20/23 16:30 124 H 177/71 H 01/20/23 16:00 123 H 167/71 H 01/20/23 16:44 124 H 01/20/23 16:08 123 H 01/20/23 15:30 122 H 164/71 H 01/20/23 15:00 85 158/61 H 01/20/23 14:30 91 H 155/66 H 01/20/23 14:00 92 H 151/65 H 01/20/23 13:45 36.9 C 96 H 01/20/23 14:00 93 H 21 156/84 H 01/20/23 13:01 102 H 20 135/104 H 01/20/23 12:00 108 H 22 01/20/23 11:00 101 H 23 01/20/23 12:00 83 139/76 Pulse Ox O2 Del Method O2 Flow Rate 01/20/23 21:45 Nasal Cannula 2 01/20/23 21:45 98 Nasal Cannula 2 01/20/23 18:00 98 01/20/23 17:25 01/20/23 17:00 01/20/23 16:00 01/20/23 16:30 01/20/23 16:00 01/20/23 16:44 01/20/23 16:08 01/20/23 15:30 01/20/23 15:00 01/20/23 14:30 01/20/23 14:00 01/20/23 13:45 01/20/23 14:00 100 01/20/23 13:01 97 01/20/23 12:00 92 01/20/23 11:00 99 01/20/23 12:00 PG Care Time/CCT Total # of Minutes Spent Total Time Spent with Patient: Total time spent is greater than 50% in coordination of care (as documented) at patient's floor/unit and/or counseling patient: Coding Level of Care Code 78115 SUB INP/OBS CARE 3/50MIN Diagnoses Acute respiratory failure with hypoxia J96.01 Atrial fibrillation with RVR I48.91 V-tach I47.20 Acute on chronic HFrEF (heart failure with reduced ejection fraction) I50.23 Weakness R53.1 Fall W19.XXXA CAD (coronary artery disease) I25.10 Cardiomyopathy I42.9 Paroxysmal atrial flutter I48.92 ESRD (end stage renal disease) N18.6 Hemodialysis catheter malfunction T82.41XA CKD (chronic kidney disease) stage 4, GFR 15-29 ml/min N18.4 Type II diabetes mellitus E11.9 Cirrhosis K74.60 Abnormal finding on lung imaging R91.8
[2023-01-21] MEDS: ICU Protocol for HYPERglycemia SCH ×3 (00:25→10:04)
[2023-01-21 04:07] LABS: Basophils # (auto) 0.01 K/uL (0-0.2); Basophils % (auto) 0.1 %; Hematocrit (blood only) 27.9 % (42.0-52.0); Hemoglobin 8.9 g/dl (14.0-18.0); Immature Granulocytes # (auto) 0.09 K/uL (0.01-0.20); Lymphocytes # (auto) 0.83 K/uL (1.2-3.4); Mean Corpuscular Hemoglobin 29.8 pg (25.0-34.0); Mean Corpuscular Hgb Conc 31.9 g/dL (32.0-36.0); Mean Corpuscular Volume 93.3 fL (80.0-100.0); Monocytes % (auto) 5.4 %; Neutrophils # (auto) 7.75 K/uL (1.40-6.50); Neutrophils % (auto) 84.5 %; Nucleated RBC % (auto) 1.1 %; Platelet Count 157 K/uL (130-400); RDW Coefficient of Variation 16.9 % (11.5-14.5); RDW Standard Deviation 57.1 fL (36.4-46.3); Red Blood Count 2.99 M/uL (4.70-6.10); White Blood Count 9.18 K/ul (4.8-10.8)
[2023-01-21] MEDS: AMIODARONE / D5W 360 MG/200 ML BAG IV SCH ×2 (04:13→15:57)
[2023-01-21 04:20] LABS: BUN Creatinine Ratio 5.4 (10-20); Calcium 8.5 mg/dl (8.6-10.3); Est GFR (African American) 16.8 ml/min; Est GFR (Non-African American) 14.5 ml/min; Magnesium 1.9 mg/dl (1.7-2.4); Phosphorus 2.6 mg/dl (2.5-4.9); Potassium 3.5 mmol/L (3.5-5.1)
[2023-01-21 04:46] LABS: Partial Thromboplastin Ratio 2.3
[2023-01-21 04:59] LABS: Partial Thromboplastin Time 63.9 Seconds (21.0-31.0)
--- NOTE | 2023-01-21 07:31 | Hospitalist Progress Note ---
Date of Service January 21, 2023 Assessment & Plan (1) Acute respiratory failure with hypoxia: Plan: high risk , as was recently extubated after being intubated and sedated in the ICU. acute respiratory failure secondary to acute systolic and diastolic heart failure secondary to a fib, cardiomyopathy and chronic renal failure on dialysis . extubated on 01/20 downgraded to telemetry status (2) Atrial fibrillation with RVR: Plan: acute on chronic, unstable , continue amio gtt (on amiodarone 200mg QAM) vtach in ER, severe risk, magnesium administed, self terminated in patient w/ hx afib and CHF w/ EF 20-25%, Cardiology consulted, V tach likely cause of syncope, -- discussed w/ Dr Santiago, Dr Miller to eval , consideration for pacer given low EF/vtach Digoxin toxicity after one half loading dose continue to follow Digibind not recommended by cardiology consultation Chronic renal failure, moderate risk , Nephrology consulted given ESRD on HD M/W/, follows with [facility] and due for HD today recent malfunction, perm cath addressed by Dr Santiago 01/14 Mechanical fall at home (on Eliquis), moderate to severe risk, striking head on toilet and per continued weakness at home since discharge earlier this month along with bleeding issues with his perm cath--Holding Eliquis 2.5 mg BID (CT head negative on admit) -- note, patient on reduced dose eliquis but age >80 or wt <60kg and technically should be on 5mg BID (3) Acute on chronic HFrEF (heart failure with reduced ejection fraction): Plan: Acute on Chronic Severe risk prior ECHO, EF 20-25%, reportedly tachycardia induced Did not tolerate ENTRESTO per , hypotension/CKD Did not tolerate metoprolol 200mg daily due to hypotension CAD continue aspirin, statin, eliquis (4) Type II diabetes mellitus: Plan: no on any agents at home, last A1c 6.4 and reports BSGs into the 40s at home at night BSG AC/HS for now and monitor for any symptomatic hypoglycemia (5) Cirrhosis: Plan: Patient/ UNAWARE of evidence for cirrhosis, denied etoh use at home INR 2, LFTs elevated -- previously normal last admit possible congestive hepatopathy or morbid obesity with steatohepatitis (6) Abnormal finding on lung imaging: Plan: Irregular nodular airspace opacities measure up to 13 mm. These are new from a [address] and may be related to edema. Likely from volume overload but will need f/u imaging 3-4 months to ensure resolution Plan Of note, Yvette, ROBERT for Mr River, I did speak with his as she was entering the ICU gave her an update on 01/21/2023 Admission and Anticipated Discharge Date Admission Date: January 18, 2023 Subjective pt was awake and conversant, cannot recall events from days past but is a&ox3 today no real complaints outside of a sore throat from intubation Physical Exam Physical Exam: Awake alert appropriate. Lungs are diminished at the bases with poor air exchange throughout. Cardiac exam is regular distant do not hear overt murmurs extremities are with trace to 1+ edema bilaterally his lower extremities Results & Data Results & Data Vital Signs (Past 12 Hours) Vital Signs Temp Pulse Resp BP Pulse Ox O2 Del Method O2 Flow Rate 01/21/23 04:00 97.9 F 80 20 151/100 H 94 Nasal Cannula 2 01/21/23 00:00 98.1 F 80 22 156/94 H 97 Nasal Cannula 2 01/20/23 21:45 Nasal Cannula 2 01/20/23 20:00 98.6 F 86 17 149/93 H 98 Nasal Cannula 2 Laboratory Results Reviewed CBC Reviewed coagulation studies Reviewed chemistry Reviewed digoxin level PG Care Time/CCT Total # of Minutes Spent Total Time Spent with Patient: Total time spent is greater than 50% in coordination of care (as documented) at patient's floor/unit and/or counseling patient: Coding Level of Care Code 97639 SUB INP/OBS CARE 3/50MIN Diagnoses Acute respiratory failure with hypoxia J96.01 Atrial fibrillation with RVR I48.91 Acute on chronic HFrEF (heart failure with reduced ejection fraction) I50.23 Type II diabetes mellitus E11.9 Cirrhosis K74.60 Abnormal finding on lung imaging R91.8
[2023-01-21] MEDS: ASPIRIN 81 MG ECTAB PO SCH (08:35)
[2023-01-21] MEDS: METOPROLOL TARTRATE 25 MG TAB PO SCH (08:35)
[2023-01-21] MEDS: PANTOprazole 40 MG TAB PO SCH (08:35)
[2023-01-21] MEDS: buPROPion SR 100 MG TABCR PO SCH (08:57)
--- NOTE | 2023-01-21 09:31 | Cardiology Progress Note ---
Date of Service January 21, 2023 Assessment & Plan (1) Syncope: (2) V-tach: (3) Atrial fibrillation with RVR: (4) Cardiomyopathy: Plan 1. Syncope: The cause of syncope is likely arrhythmic, possibilities include going into atrial fibrillation and a rapid heart rate which seems the most likely given his family history obtained today or an episode of ventricular tachycardia which also occurred in the emergency room. He does also have a history of labile blood pressure with hypotension requiring discontinuation of beta-blockade so orthostasis is also a possibility, possibly in combination with an arrhythmia. Going forward I think the best option is to try to control his rhythm. 2. Ventricular tachycardia: I reviewed his rhythm strips and the wide-complex rhythm does appear to be ventricular tachycardia. It does not start with an early beat to suggest an aberrant rhythm, it is very regular and wider than his conducted rhythm during atrial fibrillation although the rate is actually similar. It terminates abruptly which is also consistent with a ventricular arrhythmia. A twelve-lead electrocardiogram was not done during the arrhythmia. I do not believe that has recurred. We may need to consider an ICD in the future. 3. Atrial fibrillation: He presents in atrial fibrillation with a rapid heart rate, unfortunately when he first had this rhythm on his prior admission attempts at rate control were unsuccessful. I added digoxin to his regimen here and he received 2 doses of 0.25 mg each on January 18, 2023, on the morning of January 19, 2023 his level was 2.7. I repeated the level on January 20, 2023 thinking it might be an error howeverhis digoxin level was 3.8. This morning on January 21, 2023 his level is 2.5. I think this trend eliminates a lab error.. I cannot really understand these levels, his loading dose would normally be a milligram and to have that high level after just 2 doses for total of 0.5 mg is very odd and the level rising 36 hours after receiving the intravenous dose does not make sense. At the moment he is not showing signs of toxicity so I would not give Digibind. At this point I would like to restart Eliquis, I have ordered 5 mg twice a day to start this morning and discontinued heparin. 4. Cardiomyopathy: He has a relatively recent cardiomyopathy, this occurred somewhere between October 02, 2022 and December 20, 2022. An echocardiogram was done on arrival in the emergency room this admission and confirms severe left ventricular dysfunction with an ejection fraction of 20 to 25%. We will need to try to get him on more appropriate heart failure medications, this has been limited by hypotension I believe. Oddly enough his pressure is quite high now. He is on low-dose metoprolol tartrate, I am going to switch that to carvedilol and we will need to watch his blood pressure closely. Perhaps he is very volume dependent although that really did not fit with his vital signs during dialysis yesterday, perhaps he is very catecholamine dependent. 5. Amiodarone therapy: I would continue his amiodarone in IV form. If we switch to oral he will likely have a drop in his level, at the moment I do not want to do that but we will need to do it soon. Amiodarone takes some time to build up, the loading dose is typically 10 g, and therefore I would not change therapy at this time. Fortunately his liver function tests have been decreasing and therefore are not due to amiodarone toxicity. There are a lot of unexplained findings in this situation including his digoxin level, his hypotension and his clinical presentation. I am concerned that he was taking medications that we are unaware of at home. Admission and Anticipated Discharge Date Admission Date: January 18, 2023 Subjective He looks and feels much better today, he is sitting on the side of the bed after getting cleaned up and tells me that he feels well. Although he has said that most mornings. He converted to sinus rhythm last evening and his blood pressure inexplicably increased significantly although that was not coincident with the rhythm change and occurred immediately after dialysis so is not really consistent with a volume change either. It has remained elevated overnight. Physical Exam Physical Exam: Constitutional: Alert, cooperative and in no distress. HEENT: Unremarkable except for hematoma on his forehead Neck: No jugular venous distention, carotid pulses are normal and equal bilaterally without bruits. Pulmonary: Clear to auscultation bilaterally. Cardiac: Regular rhythm with no murmur, gallop or rub. Abdomen: Soft, nontender with normal bowel sounds. Extremities: No edema. Neurologic: No focal findings. Skin: No rash or petechiae, he does have ecchymosis on his arms. Results & Data Vital Signs (Past 12 Hours) Vital Signs Temp Pulse Pulse Resp BP BP Pulse Ox 01/21/23 08:00 83 25 H 168/91 H 92 01/21/23 08:00 83 01/21/23 07:27 01/21/23 04:00 36.6 C 80 20 151/100 H 94 01/21/23 00:00 36.7 C 80 22 156/94 H 97 01/20/23 21:45 O2 Del Method O2 Flow Rate 01/21/23 08:00 Nasal Cannula 2 01/21/23 08:00 01/21/23 07:27 Nasal Cannula 2 01/21/23 04:00 Nasal Cannula 2 01/21/23 00:00 Nasal Cannula 2 01/20/23 21:45 Nasal Cannula 2 Laboratory Results Cardiac Enzymes 01/20/23 01/20/23 Range/Units 03:06 03:06 AST 666 H Cancelled (13-39) U/L Coagulation 01/20/23 01/20/23 01/21/23 Range/Units 11:06 19:44 03:27 APTT 99.4 H* 77.0 H* 63.9 H* (21.0-31.0) Seconds CBC 01/21/23 Range/Units 03:27 WBC 9.18 (4.8-10.8) K/ul RBC 2.99 L (4.70-6.10) M/uL Hgb 8.9 L (14.0-18.0) g/dl Hct 27.9 L (42.0-52.0) % Plt Count 157 (130-400) K/uL Neut # (Auto) 7.75 H (1.40-6.50) K/uL Lymph # (Auto) 0.83 L (1.2-3.4) K/uL Callahan # (Auto) 0.50 (0.11-0.59) K/uL Eos # (Auto) 0.00 (0-0.50) K/uL Baso # (Auto) 0.01 (0-0.2) K/uL Comprehensive Metabolic Panel 01/20/23 01/20/23 01/21/23 Range/Units 03:06 03:06 03:27 Sodium 137 (136-145) mmol/L Potassium 3.5 (3.5-5.1) mmol/L Chloride 98 (98-107) mmol/L Carbon Dioxide 26 (21-32) mmol/L BUN 22 D (6-23) mg/dl Creatinine 4.09 H D (0.6-1.4) mg/dl Glucose 84 (70-99(Fasting)) mg/dl Calcium 8.5 L (8.6-10.3) mg/dl Direct Bilirubin 0.4 H Cancelled (0-0.2) mg/dl AST 666 H Cancelled (13-39) U/L ALT 207 H Cancelled (7-52) U/L Alkaline Phosphatase 103 Cancelled (34-104) U/L Total Protein 5.4 L Cancelled (6.0-8.3) gm/dl Albumin 2.5 L Cancelled (3.4-5.0) gm/dl Intake and Output 01/20/23 01/21/23 01/21/23 22:59 06:59 14:59 Intake Total 761.177 / 2074.757 763.973 / 2074.757 22.183 / 22.183 Output Total 102 0 / 102 0 / 0 Balance 759.177 / 1972.757 763.973 / 1971.757 22.183 / 22.183 Intake: IV 221.177 / 704.757 283.973 / 704.757 22.183 / 22.183 Amiodarone / D5w 360 mg In 200 155.31 / 385.213 198.173 / 385.213 ml @ 0.5 MG/MIN 16.667 mls/hr IV .Q12H [facility] Rx#:[id number] Heparin Sodium/Dextrose 25,000 65.867 / 270.334 85.8 / 270.334 22.183 / 22.183 units In 500 ml @ 550 UNITS/HR 11 mls/hr IV .Q24H [facility] Rx#: [id number] Norepinephrine/D5w 4 mg In 250 0 / 13.490 ml @ 0.05 MCG/KG/MIN 17.644 mls /hr IV .[id number] [facility] Rx#: [id number] Oral 540 / 1320 480 / 1320 0 / 0 Tube Feeding 0 / 20 0 / 0 Tube Irrigant 0 / 30 0 / 0 Output: Urine 0 / 0 # Bowel Movements 2 / 2 0 / 2 0 / 0 Other: Hemodialysis Ultrafiltration 2,000 Amount # Unmeasured Voids 0 Weight 100.3 kg Weight Measurement Method Built in [facility] Diagnostic Findings Telemetry: Atrial fibrillation with a rapid ventricular response yesterday afternoon, in the evening he converted spontaneously to sinus rhythm with no significant drop in heart rate. His rhythm has been stable since. Dig level this morning 2.5 PG Care Time/CCT Total # of Minutes Spent Total Time Spent with Patient: Total time spent is greater than 50% in coordination of care (as documented) at patient's floor/unit and/or counseling patient: Coding Level of Care Code 89298 SUB INP/OBS CARE 3/50MIN Diagnoses Syncope R55 Encounter type: initial encounter V-tach I47.20 Atrial fibrillation with RVR I48.91 Cardiomyopathy I42.9 (1) Syncope Encounter type: initial encounter
[2023-01-21] MEDS: carvediloL 12.5 MG TAB PO SCH ×2 (10:46→16:59)
[2023-01-21] MEDS: APIXABAN 5 MG TABLET PO SCH ×2 (10:46→20:11)
--- NOTE | 2023-01-21 11:05 | Nephrology Progress Note ---
Date of Service January 21, 2023 Assessment & Plan Admission and Anticipated Discharge Date Admission Date: January 18, 2023 Subjective Subjective S----Looks much better. Now talking and no SOB. had Dialysis yesterday without issues. BP and HR much better PHYSICAL EXAMINATION: GENERAL: A middle-aged white male who appears to be significantly older than his stated age. CHEST: Bilateral decreased breath sounds, poor inspiratory effort. CARDIOVASCULAR: S1 and S2, tachycardic. Soft systolic murmur heard. ABDOMEN: Soft, nontender. EXTREMITIES: Show no edema. SKIN: Shows no rashes. LABORATORY TEST: Reviewed. ASSESSMENT AND PLAN: A 62-year-old male with end-stage renal disease, on chronic hemodialysis after recent worsening of his CKD IV in the setting of CO VID infection and sepsis, now admitted with fall/Syncope/Cardiac rhythm issues with Afibb and V tach. . I have been consulted for dialysis management. 1. End-stage renal disease: Dialysis tomorrow for 3.5 hrs and will take 3 kilo which is typical amount for him usually. [place] [address]71 units procrit. 2 cardiac--Low LVEF of 20% + multiple cardiac rhythm issues. V tach + Afibb. per cardiology. Results & Data Vital Signs (Past 12 Hours) Vital Signs Temp Pulse Pulse Resp BP BP Pulse Ox 01/21/23 08:00 83 25 H 168/91 H 92 01/21/23 08:00 83 01/21/23 07:27 01/21/23 04:00 36.6 C 80 20 151/100 H 94 01/21/23 00:00 36.7 C 80 22 156/94 H 97 O2 Del Method O2 Flow Rate 01/21/23 08:00 Nasal Cannula 2 01/21/23 08:00 01/21/23 07:27 Nasal Cannula 2 01/21/23 04:00 Nasal Cannula 2 01/21/23 00:00 Nasal Cannula 2
[2023-01-21] MEDS ORDERED: CARBOHYDRATES FOR HYPOGLYCEMIA PO PRN (11:53)
[2023-01-21] MEDS ORDERED: DEXTROSE 50% 50 ML SYRINGE IV PRN (11:53)
[2023-01-21] MEDS: INSULIN ASPART PER UNIT CHARGE SC SCH ×2 (16:39→20:12)
[2023-01-21] MEDS: NOREPINEPHRINE/D5W 4 MG/250 ML PLCT IV SCH ×3 (19:35→19:40)
[2023-01-21] MEDS: Heparin IV Adult Wt-Based Standard *NO* Bolus Protocol IV SCH ×2 (19:38→19:46)
[2023-01-21] MEDS: ATORVASTATIN 40 MG TAB PO SCH (20:11)
[2023-01-21] MEDS: VENLAFAXINE HCL XR 75 MG CAPXR PO SCH (20:11)
[2023-01-21] MEDS: allopurinoL 300 MG TAB PO SCH (20:12)
[2023-01-22] MEDS: AMIODARONE / D5W 360 MG/200 ML BAG IV SCH ×2 (02:49→14:57)
[2023-01-22 04:56] LABS: Partial Thromboplastin Ratio 1.5; Partial Thromboplastin Time 42.6 Seconds (21.0-31.0)
[2023-01-22 04:59] LABS: Albumin Level 2.4 gm/dl (3.4-5.0); BUN Creatinine Ratio 5.5 (10-20); Bilirubin Direct 0.2 mg/dl (0-0.2); Bilirubin,Total 0.7 mg/dl (0.2-1.0); Calcium 8.4 mg/dl (8.6-10.3); Creatinine Clr Calc Pharmacy 16.1 ml/min; Est GFR (African American) 12.3 ml/min; Est GFR (Non-African American) 10.6 ml/min; Magnesium 1.8 mg/dl (1.7-2.4); Potassium 3.4 mmol/L (3.5-5.1); Total Protein 5.3 gm/dl (6.0-8.3)
--- NOTE | 2023-01-22 06:06 | Electrocardiogram Report ---
Test Reason : Blood Pressure : / mmHG Vent. Rate : 078 BPM Atrial Rate : 078 BPM P-R Int : 242 ms QRS Dur : 110 ms QT Int : 440 ms P-R-T Axes : 019 020 118 degrees QTc Int : 502 ms Possible Sinus rhythm with 1st degree A-V block Septal infarct , age undetermined Poor R wave progression, consider anterior DC vs. lead placement vs. LVH Prolonged QT Abnormal ECG When compared with ECG of 20-JAN-2023 04:20, Sinus rhythm has replaced Atrial flutter Septal infarct is now Present Confirmed by Dre Almonte ([id number]) on 01/22/2023 6:05:59 AM Referred By: REFERRED SELF Confirmed By:Dre Almonte
[2023-01-22] MEDS ORDERED: SODIUM CHLORIDE 0.9% 1000ML 1,000 ML IV PRN (07:00)
[2023-01-22] MEDS ORDERED: EPOETIN ALFA 10,000 UNITS/ML VIAL IV ONE (07:00)
[2023-01-22] MEDS ORDERED: POTASSIUM CHLORIDE CRTAB 20 MEQ TABCR PO STA (07:41)
--- NOTE | 2023-01-22 07:44 | Hospitalist Progress Note ---
Date of Service January 22, 2023 Assessment & Plan (1) Acute respiratory failure with hypoxia: Plan: Improving, taper oxygen to room air acute respiratory failure secondary to acute systolic and diastolic heart failure secondary to a fib, cardiomyopathy and chronic renal failure on dialysis . extubated on 01/20 deconditioned and chronically ill improving daily PT evaluation for consideration of disposition (2) Atrial fibrillation with RVR: Plan: acute on chronic, unstable , continue amio gtt (on amiodarone 200mg QAM) vtach in ER, severe risk, magnesium administered, self terminated in patient w/ hx afib and CHF w/ EF 20-25%, Cardiology consulted, V tach likely cause of syncope, -- discussed w/ Dr Santiago, Dr Miller following, consideration for pacer given low EF/vtach this will be done in the office setting Atrial fibrillation we will currently have overlap of amiodarone with IV and oral for 1 day. Continued on Coreg. On Eliquis for prevention of arterial thromboembolism Dr. Jain is managing antiarrhythmic agents Digoxin toxicity after one half loading dose continue to follow Digibind not recommended by cardiology consultation Chronic renal failure, moderate risk , Nephrology consulted given ESRD on HD M/W/, follows with [facility] nephrology and due for HD today recent malfunction, perm cath addressed by Dr Santiago 01/14 Mechanical fall at home (on Eliquis), moderate to severe risk, striking head on toilet and per continued weakness at home since discharge earlier this month along with bleeding issues with his perm cath--Holding Eliquis 2.5 mg BID (CT head negative on admit) -- note, patient on reduced dose eliquis but age >80 or wt <60kg and technically should be on 5mg BID (3) Acute on chronic HFrEF (heart failure with reduced ejection fraction): Plan: Acute on Chronic moderate risk due to improvement prior ECHO, EF 20-25%, reportedly tachycardia induced Did not tolerate ENTRESTO per , hypotension/CKD Did not tolerate metoprolol 200mg daily due to hypotension CAD continue aspirin, statin, eliquis (4) Type II diabetes mellitus: Plan: no on any agents at home, last A1c 6.4 and reports BSGs into the 40s at home at night BSG AC/HS for now and monitor for any symptomatic hypoglycemia (5) Cirrhosis: Plan: Patient/ UNAWARE of evidence for cirrhosis, denied etoh use at home INR 2, LFTs elevated -- previously normal last admit possible congestive hepatopathy or morbid obesity with steatohepatitis (6) Abnormal finding on lung imaging: Plan: Irregular nodular airspace opacities measure up to 13 mm. These are new from a [address] and may be related to edema. Likely from volume overload but will need f/u imaging 3-4 months to ensure resolution Plan Of note, ROBERT Crawford for Mr Holman, updated 01/22/23 Admission and Anticipated Discharge Date Admission Date: January 18, 2023 Subjective pt is improving now on room air, still weakened. tolerated dialylsis today, has some periorbital ecchymosis and shoulder pain Physical Exam Physical Exam: Patient is awake and alert he is weak and He has bruising on his face from his fall with a hematoma on his forehead Cardiac exam is regular without murmur Lungs are good air movement decreased at the base Extremities without edema Results & Data Results & Data Vital Signs (Past 12 Hours) Vital Signs Temp Pulse Pulse Resp BP BP Pulse Ox 01/22/23 03:00 98.2 F 66 17 122/77 98 01/22/23 00:00 66 01/21/23 22:00 65 16 127/81 99 01/21/23 23:00 98.2 F 01/21/23 22:27 01/21/23 20:00 65 17 96 O2 Del Method O2 Flow Rate 01/22/23 03:00 Nasal Cannula 2 01/22/23 00:00 01/21/23 22:00 01/21/23 23:00 01/21/23 22:27 Nasal Cannula 2 01/21/23 20:00 Laboratory Results Reviewed PRP Reviewed PTT PG Care Time/CCT Total # of Minutes Spent Total Time Spent with Patient: Total time spent is greater than 50% in coordination of care (as documented) at patient's floor/unit and/or counseling patient: Coding Level of Care Code 82567 SUB INP/OBS CARE 2/35MIN Diagnoses Acute respiratory failure with hypoxia J96.01 Atrial fibrillation with RVR I48.91 Acute on chronic HFrEF (heart failure with reduced ejection fraction) I50.23 Type II diabetes mellitus E11.9 Cirrhosis K74.60 Abnormal finding on lung imaging R91.8
--- NOTE | 2023-01-22 07:57 | Cardiology Progress Note ---
Date of Service January 22, 2023 Assessment & Plan (1) Syncope: (2) V-tach: (3) Atrial fibrillation with RVR: (4) Cardiomyopathy: Plan 1. Syncope: The cause of his presenting syncope was likely arrhythmic, possibilities include going into atrial fibrillation with a rapid heart rate which seems the most likely given the history obtained from his family. Other possibilities include an episode of ventricular tachycardia (which also occurred in the emergency room but at a rate similar to his atrial fibrillation). He does also have a history of labile blood pressure with hypotension requiring discontinuation of beta-blockade prior to admission so orthostasis is also a possibility, likely in combination with an arrhythmia. Going forward I think the best option is to try to control his rhythm. 2. Ventricular tachycardia: I reviewed his rhythm strips and the wide-complex rhythm does appear to be ventricular tachycardia. It does not start with an early beat to suggest an aberrant rhythm, it is very regular and wider than his conducted rhythm during atrial fibrillation although the rate is actually similar. It terminates abruptly which is also consistent with a ventricular arrhythmia. A twelve-lead electrocardiogram was not done during the arrhythmia. I do not believe that has recurred. We may need to consider an ICD in the future but I would continue amiodarone for now. 3. Atrial fibrillation: He presents in atrial fibrillation with a rapid heart rate, unfortunately when he first had this rhythm on his prior admission attempts at rate control were unsuccessful. I added digoxin to his regimen here and he received 2 doses of 0.25 mg each on January 18, 2023, on the morning of January 19, 2023 his level was 2.7. I repeated the level on January 20, 2023 thinking it might be an error however his digoxin level was 3.8 without receiving additional digoxin. In the morning on January 21, 2023 his level was 2.5. I think this trend eliminates a lab error. I cannot explain these levels, his loading dose would normally be a milligram and to have that high level for total of 0.5 mg is very odd and the level rising 36 hours after receiving the intravenous dose does not make sense. At the moment he is not showing signs of toxicity so I would not give Digibind. I think we should not restart digoxin however. I agree with the use of Eliquis to minimize his risk of stroke. 4. Cardiomyopathy: He has a relatively recent cardiomyopathy, this occurred [facility] between October 02, 2022 and December 20, 2022. An echocardiogram was done on arrival in the emergency room this admission and confirms severe left ventricular dysfunction with an ejection fraction of 20 to 25%. We will need to try to get him on more appropriate heart failure medications, this has been limited by hypotension I believe. Oddly enough his pressure became quite high over the last several days. I did switch his beta-kris to carvedilol and his blood pressure appears to have normalized. Perhaps his blood pressure is very volume dependent although that really did not fit with his vital signs during dialysis several days ago, perhaps his blood pressure is very catecholamine dependent. Hopefully he will not drop his blood pressure on dialysis today. His only heart failure medication at the moment is carvedilol 12.5 mg twice a day. If he continues to tolerate this I would try a low-dose of Entresto while he is here in the hospital to see if he can tolerate that. 5. Amiodarone therapy: I would continue his amiodarone in IV form for at least several more days. If we switch completely to oral he will likely have a drop in his level and possible recurrence of poorly tolerated atrial flutter, at the moment I do not want to do that but we will need to do it soon. Amiodarone takes some time to build up, the loading dose is typically 10 g, and therefore I am going to add amiodarone 200 mg twice a day to his intravenous. Perhaps his intravenous amiodarone can be discontinued on January 24, 2023. Fortunately his liver function tests have been improving steadily and therefore these abnormalities were not due to amiodarone toxicity. There are a lot of unexplained findings in this situation including his digoxin level, his hypotension and his clinical presentation. I am concerned that he was taking medications that we are unaware of at home. We need to make sure that he is taking only what we prescribe here on discharge when he goes home. Admission and Anticipated Discharge Date Admission Date: January 18, 2023 Subjective He seems to be doing much better today, he has no specific complaints other than having a little bit of abdominal uneasiness. No cardiovascular symptoms including shortness of breath or chest discomfort. No palpitations. Physical Exam Physical Exam: Constitutional: Alert, cooperative and in no distress. HEENT: Unremarkable except for hematoma on his forehead Neck: No jugular venous distention, carotid pulses are normal and equal bilaterally without bruits. Pulmonary: Slight decreased breath sounds at the bases bilaterally. Cardiac: Regular rhythm with no murmur, gallop or rub. Abdomen: Soft, nontender with normal bowel sounds. Extremities: No edema. Neurologic: No focal findings. Skin: No rash or petechiae, he does have ecchymosis on his arms. Results & Data Vital Signs (Past 12 Hours) Vital Signs Temp Pulse Pulse Resp BP BP Pulse Ox 01/22/23 03:00 36.8 C 66 17 122/77 98 01/22/23 00:00 66 01/21/23 22:00 65 16 127/81 99 01/21/23 23:00 36.8 C 01/21/23 22:27 01/21/23 20:00 65 17 96 O2 Del Method O2 Flow Rate 01/22/23 03:00 Nasal Cannula 2 01/22/23 00:00 01/21/23 22:00 01/21/23 23:00 01/21/23 22:27 Nasal Cannula 2 01/21/23 20:00 Laboratory Results Cardiac Enzymes 01/22/23 Range/Units 03:59 AST 141 H (13-39) U/L Coagulation 01/22/23 Range/Units 03:59 APTT 42.6 H (21.0-31.0) Seconds Comprehensive Metabolic Panel 01/22/23 Range/Units 03:59 Sodium 135 L (136-145) mmol/L Potassium 3.4 L (3.5-5.1) mmol/L Chloride 96 L (98-107) mmol/L Carbon Dioxide 27 (21-32) mmol/L BUN 29 H (6-23) mg/dl Creatinine 5.29 H* D (0.6-1.4) mg/dl Glucose 75 (70-99(Fasting)) mg/dl Calcium 8.4 L (8.6-10.3) mg/dl Direct Bilirubin 0.2 (0-0.2) mg/dl AST 141 H (13-39) U/L ALT 77 H (7-52) U/L Alkaline Phosphatase 88 (34-104) U/L Total Protein 5.3 L (6.0-8.3) gm/dl Albumin 2.4 L (3.4-5.0) gm/dl Intake and Output 01/21/23 01/22/23 01/22/23 22:59 06:59 14:59 Intake Total 245.947 / 1031.503 331.473 / 1031.503 Output Total 0 / 201 Balance 245.947 / 830.503 331.473 / 830.503 Intake: IV 195.947 / 431.503 181.473 / 431.503 Amiodarone / D5w 360 mg In 200 195.947 / 377.420 181.473 / 377.420 ml @ 0.5 MG/MIN 16.667 mls/hr IV .Q12H [facility] Rx#:[id number] Oral 50 / 600 150 / 600 Tube Feeding 0 / 0 Tube Irrigant 0 / 0 Output: # Bowel Movements 0 / 1 Other: Other Intake Source Sips # Unmeasured Voids 0 Diagnostic Findings Telemetry: Sinus rhythm for the past 24 hours, rate very well controlled. PG Care Time/CCT Total # of Minutes Spent Total Time Spent with Patient: Total time spent is greater than 50% in coordination of care (as documented) at patient's floor/unit and/or counseling patient: Coding Level of Care Code 96110 SUB INP/OBS CARE 2/35MIN Diagnoses Syncope R55 Encounter type: initial encounter V-tach I47.20 Atrial fibrillation with RVR I48.91 Cardiomyopathy I42.9 (1) Syncope Encounter type: initial encounter
[2023-01-22] MEDS: INSULIN ASPART PER UNIT CHARGE SC SCH ×4 (07:59→21:24)
[2023-01-22] MEDS: ASPIRIN 81 MG ECTAB PO SCH (09:17)
[2023-01-22] MEDS: APIXABAN 5 MG TABLET PO SCH ×2 (09:17→21:24)
[2023-01-22] MEDS: carvediloL 12.5 MG TAB PO SCH ×3 (09:17→15:49)
[2023-01-22] MEDS: PANTOprazole 40 MG TAB PO SCH (09:17)
--- NOTE | 2023-01-22 10:15 | Nephrology Progress Note ---
Date of Service January 22, 2023 Assessment & Plan Admission and Anticipated Discharge Date Admission Date: January 18, 2023 Subjective Subjective S----Seen during dialysis. So far toleratting fine BP is high. Looks much better. Now talking and no SOB. had Dialysis yesterday without issues. BP and HR much better PHYSICAL EXAMINATION: GENERAL: A middle-aged white male who appears to be significantly older than his stated age. CHEST: Bilateral decreased breath sounds, poor inspiratory effort. CARDIOVASCULAR: S1 and S2, tachycardic. Soft systolic murmur heard. ABDOMEN: Soft, nontender. EXTREMITIES: Show no edema. SKIN: Shows no rashes. LABORATORY TEST: Reviewed. ASSESSMENT AND PLAN: A 62-year-old male with end-stage renal disease, on chronic hemodialysis after recent worsening of his CKD IV in the setting of COVID infection and sepsis, now admitted with fall/Syncope/Cardiac rhythm issues with Afibb and V tach.. I have been consulted for dialysis management. 1. End-stage renal disease: Dialysis today for 3.5 hrs 2 K bath and will take 3 kilo which is typical amount for him usually. [place] [address]103 units procrit. 2 cardiac--Low LVEF of 20% + multiple cardiac rhythm issues. V tach + Afibb. per cardiology. Results & Data Vital Signs (Past 12 Hours) Vital Signs Temp Pulse Pulse Resp BP BP Pulse Ox 01/22/23 08:00 71 18 99 01/22/23 08:00 01/22/23 08:00 36.7 C 01/22/23 09:30 69 155/73 H 01/22/23 09:00 70 177/35 H 01/22/23 08:55 36.8 C 70 01/22/23 03:00 36.8 C 66 17 122/77 98 01/22/23 00:00 66 01/21/23 23:00 36.8 C 01/21/23 22:27 O2 Del Method O2 Flow Rate 01/22/23 08:00 01/22/23 08:00 Nasal Cannula 2 01/22/23 08:00 01/22/23 09:30 01/22/23 09:00 01/22/23 08:55 01/22/23 03:00 Nasal Cannula 2 01/22/23 00:00 01/21/23 23:00 01/21/23 22:27 Nasal Cannula 2
[2023-01-22] MEDS: AMIODARONE 200 MG TAB PO SCH (15:48)
[2023-01-22] MEDS: VENLAFAXINE HCL XR 75 MG CAPXR PO SCH (21:24)
[2023-01-22] MEDS: allopurinoL 300 MG TAB PO SCH (21:24)
[2023-01-22] MEDS: ATORVASTATIN 40 MG TAB PO SCH (21:24)
[2023-01-23] MEDS: AMIODARONE / D5W 360 MG/200 ML BAG IV SCH ×2 (03:30→15:14)
[2023-01-23 05:08] LABS: Basophils # (auto) 0.05 K/uL (0-0.2); Basophils % (auto) 0.7 %; Eosinophils # (auto) 0.05 K/uL (0-0.50); Eosinophils % (auto) 0.7 %; Hematocrit (blood only) 32.1 % (42.0-52.0); Immature Granulocytes # (auto) 0.12 K/uL (0.01-0.20); Immature Granulocytes % (auto) 1.6 %; Lymphocytes # (auto) 0.79 K/uL (1.2-3.4); Lymphocytes % (auto) 10.3 %; Mean Corpuscular Hemoglobin 30.2 pg (25.0-34.0); Mean Corpuscular Hgb Conc 31.2 g/dL (32.0-36.0); Mean Platelet Volume 13.1 fL (9.4-12.4); Monocytes % (auto) 6.5 %; Neutrophils # (auto) 6.13 K/uL (1.40-6.50); Neutrophils % (auto) 80.2 %; Nucleated RBC # (auto) 0.07 K/uL (0-0.12); Nucleated RBC % (auto) 0.9 %; Platelet Count 135 K/uL (130-400); RDW Coefficient of Variation 17.3 % (11.5-14.5); RDW Standard Deviation 59.3 fL (36.4-46.3); Red Blood Count 3.31 M/uL (4.70-6.10); White Blood Count 7.64 K/ul (4.8-10.8)
[2023-01-23 05:11] LABS: Partial Thromboplastin Ratio 1.5; Partial Thromboplastin Time 41.5 Seconds (21.0-31.0)
[2023-01-23] MEDS: LORazepam 1 MG TAB PO PRN (05:33)
[2023-01-23 08:00] LABS: Albumin Globulin Ratio 0.8 (0.9-2); Albumin Level 2.9 gm/dl (3.4-5.0); BUN Creatinine Ratio 4.8 (10-20); Bilirubin,Total 0.9 mg/dl (0.2-1.0); Calcium 8.7 mg/dl (8.6-10.3); Creatinine Clr Calc Pharmacy 22.7 ml/min; Est GFR (African American) 18.6 ml/min; Est GFR (Non-African American) 16.1 ml/min; Globulin 3.5 gm/dl (2.5-4.0); Potassium 3.9 mmol/L (3.5-5.1); Total Protein 6.4 gm/dl (6.0-8.3)
[2023-01-23] MEDS: INSULIN ASPART PER UNIT CHARGE SC SCH ×4 (08:01→21:22)
[2023-01-23] MEDS: PANTOprazole 40 MG TAB PO SCH (08:25)
[2023-01-23] MEDS: APIXABAN 5 MG TABLET PO SCH ×2 (08:26→21:20)
[2023-01-23] MEDS: ASPIRIN 81 MG ECTAB PO SCH (08:26)
[2023-01-23] MEDS: AMIODARONE 200 MG TAB PO SCH ×2 (08:26→16:54)
[2023-01-23] MEDS: carvediloL 12.5 MG TAB PO SCH ×2 (08:26→16:54)
[2023-01-23] MEDS: VALSARTAN/SACUBITRIL 26/24MG TAB PO SCH ×2 (09:53→21:21)
[2023-01-23 17:17] LABS: 7-Aminoclonaz, Confirm NEGATIVE ng/mL (<25); Hydro-Alp Ur, GC/MS NEGATIVE ng/mL (<25); Hydroxyethylflurazepam, Conf NEGATIVE ng/mL (<50); Hydroxymidazolam Ur, GC/MS 449 ng/mL (<50); Hydroxytriazolam NEGATIVE ng/mL (<50); Lorazepam, Ur GC/MS 945 ng/mL (<50); MDA negative; MDEA negative; MDMA (Ecstasy) Urine, Confirm negative; Marijuana Quant, GCMS Urine 16 ng/mL (<5); Nordiazepam, Confirm NEGATIVE ng/mL (<50); Oxazepam Ur, GC/MS NEGATIVE ng/mL (<50); Temazepam, Confirm NEGATIVE ng/mL (<50)
--- NOTE | 2023-01-23 18:35 | Hospitalist Progress Note ---
Date of Service January 23, 2023 Assessment & Plan (1) Acute respiratory failure with hypoxia: Plan: - acute respiratory failure secondary to acute systolic and diastolic heart failure exacerbation secondary to a fib, cardiomyopathy and chronic renal failure on dialysis - required intubation --> extubated on 01/20 - now breathing well on room air - deconditioned and chronically ill, improving daily PT evaluation for consideration of disposition (2) Atrial fibrillation with RVR: Plan: - acute on chronic, unstable on arrival (vtach in ER) - initially placed on amio gtt (on amiodarone 200mg QAM)--> today will have overlap of amio with IV and oral for 1 day--> plan to convert to oral only tomorrow, 01/24 - fortunately has converted to sinus and is running at 70 bpm - consideration for pacer given low EF/vtach will be done in the office setting - continued on Coreg for rate control - On Eliquis for prevention of arterial thromboembolism 5mg BID dose - Digoxin toxicity after one half loading dose continue to follow Digibind not recommended by cardiology consultation Chronic renal failure, moderate risk , Nephrology consulted given ESRD on HD M//, follows with [facility] nephrology recent malfunction, perm cath addressed by Dr Santiago 01/14 Mechanical fall at home (on Eliquis), moderate to severe risk, striking head on toilet and per continued weakness at home since discharge earlier this month along with bleeding issues with his perm cath--Holding Eliquis 2.5 mg BID (CT head negative on admit) -- note, patient on reduced dose eliquis but age >80 or wt <60kg and technically should be on 5mg BID (3) Acute on chronic HFrEF (heart failure with reduced ejection fraction): Plan: Acute on Chronic moderate risk due to improvement prior ECHO, EF 20-25%, reportedly tachycardia induced; consideration of ICD placement with outpatient cardiology Did not tolerate ENTRESTO per , hypotension/CKD --> however now that he is in sinus, cardiology recommend a retrial with a low dose; restarted today Continue coreg CAD continue aspirin, statin, eliquis (4) Type II diabetes mellitus: Plan: no on any agents at home, last A1c 6.4 and reports BSGs into the 40s at home at night BSG AC/HS for now and monitor for any symptomatic hypoglycemia (5) Cirrhosis: Plan: Patient/ UNAWARE of evidence for cirrhosis, denied etoh use at home INR 2, LFTs elevated -- previously normal last admit possible congestive hepatopathy or morbid obesity with steatohepatitis - downtrended on labs today (6) Abnormal finding on lung imaging: Plan: Irregular nodular airspace opacities measure up to 13 mm. These are new from a [address] and may be related to edema. Likely from volume overload but will need f/u imaging 3-4 months to ensure resolution (7) Sacral wound: Plan: - noted on exam today -- > did not appear infected - wound consult placed Plan Of note, ROBERT Crawford for Mr Holman, updated 01/22/23 Admission and Anticipated Discharge Date Admission Date: January 18, 2023 Subjective Feeling well today -- nursing noticed wound on his left buttock and has placed a wound care consult. He has been running in the 70s all morning - converted to sinus. Review of Systems Review of Systems: All systems reviewed & are unremarkable except as noted in HPI & below Physical Exam Physical Exam: General Appearance: well-developed, well-nourished adult male in no acute distress. + obese HEENT: NC/AT. Sclera anicteric. Neck: Supple. No JVD. Carotid upstrokes brisk but not bounding; no bruits or palpable thrills bilaterally. No thyromegaly or thyroid nodules. CV: + heart sounds are distant. Rhythm sounds regular Lungs: Moving air well and equally; no crackles in b/l bases Skin: warm, dry, and intact. + wound on left buttock Neuro: AAO x 3. No focal deficits. Psych: Appropriate mood and affect. Results & Data Results & Data Vital Signs (Past 12 Hours) Vital Signs Temp Pulse Resp BP Pulse Ox O2 Del Method 01/23/23 16:53 36.7 C 76 18 149/76 H 94 Room Air 01/23/23 11:45 36.7 C 79 14 120/68 95 Room Air 01/23/23 08:00 36.7 C 78 18 168/96 H 94 Room Air PG Care Time/CCT Total # of Minutes Spent Total Time Spent with Patient: Total time spent is greater than 50% in coordination of care (as documented) at patient's floor/unit and/or counseling patient: Coding [place] [address] SUB INP/OBS CARE 2/35MIN Patient Type Established Diagnoses Acute respiratory failure with hypoxia J96.01 Atrial fibrillation with RVR I48.91 Acute on chronic HFrEF (heart failure with reduced ejection fraction) I50.23 Type II diabetes mellitus E11.9 Cirrhosis K74.60 Abnormal finding on lung imaging R91.8 Sacral wound S31.000A
[2023-01-23] MEDS: allopurinoL 300 MG TAB PO SCH (21:20)
[2023-01-23] MEDS: VENLAFAXINE HCL XR 75 MG CAPXR PO SCH (21:21)
[2023-01-23] MEDS: ATORVASTATIN 40 MG TAB PO SCH (21:21)
[2023-01-24] MEDS: AMIODARONE / D5W 360 MG/200 ML BAG IV SCH (03:03)
[2023-01-24 04:54] LABS: Albumin Globulin Ratio 0.9 (0.9-2); Albumin Level 2.5 gm/dl (3.4-5.0); BUN Creatinine Ratio 5.6 (10-20); Bilirubin,Total 0.9 mg/dl (0.2-1.0); Calcium 8.5 mg/dl (8.6-10.3); Creatinine Clr Calc Pharmacy 17.1 ml/min; Est GFR (African American) 13.2 ml/min; Est GFR (Non-African American) 11.4 ml/min; Globulin 2.9 gm/dl (2.5-4.0); Potassium 3.5 mmol/L (3.5-5.1); Total Protein 5.4 gm/dl (6.0-8.3)
[2023-01-24 05:12] LABS: Partial Thromboplastin Ratio 1.7
[2023-01-24 05:22] LABS: Partial Thromboplastin Time 45.5 Seconds (21.0-31.0)
--- NOTE | 2023-01-24 07:15 | Hospitalist Progress Note ---
Date of Service January 24, 2023 Assessment & Plan (1) Acute respiratory failure with hypoxia: Plan: Improving, taper oxygen to room air acute respiratory failure secondary to acute systolic and diastolic heart failure secondary to a fib, cardiomyopathy and chronic renal failure on dialysis . extubated on 01/20 deconditioned and chronically ill improving daily PT evaluation for consideration of disposition (2) Atrial fibrillation with RVR: Plan: acute on chronic, now converted to NSR.(vtach in ER), hx afib and CHF w/ EF 20-25%, Cardiology consulted, V tach likely cause of syncope, -- discussed w/ Dr Santiago, Dr Miller following, consideration for pacer given low EF/vtach this will be done in the office setting Atrial fibrillation we will currently have overlap of amiodarone with IV and oral for 1 day. Continued on Coreg. On Eliquis for prevention of arterial thromboembolism Dr. Jain is managing antiarrhythmic agents Digoxin toxicity after one half loading dose continue to follow, Digibind not recommended by cardiology consultation Chronic renal failure, moderate risk , Nephrology consulted given ESRD on HD M//, follows with [facility] nephrology and due for HD today recent malfunction, perm cath addressed by Dr Santiago 01/14 Mechanical fall at home (on Eliquis), moderate to severe risk, striking head on toilet and per continued weakness at home since discharge earlier this month along with bleeding issues with his perm cath--Holding Eliquis 2.5 mg BID (CT head negative on admit) -- note, patient on reduced dose eliquis but age >80 or wt <60kg and technically should be on 5mg BID (3) Acute on chronic HFrEF (heart failure with reduced ejection fraction): Plan: Acute on Chronic moderate risk due to improvement prior ECHO, EF 20-25%, reportedly tachycardia induced Did not tolerate ENTRESTO per , hypotension/CKD Did not tolerate metoprolol 200mg daily due to hypotension CAD continue aspirin, statin, eliquis (4) Type II diabetes mellitus: Plan: no on any agents at home, last A1c 6.4 and reports BSGs into the 40s at home at night BSG AC/HS for now and monitor for any symptomatic hypoglycemia (5) Cirrhosis: Plan: Patient/ UNAWARE of evidence for cirrhosis, denied etoh use at home INR 2, LFTs elevated -- previously normal last admit possible congestive hepatopathy or morbid obesity with steatohepatitis (6) Abnormal finding on lung imaging: Plan: Irregular nodular airspace opacities measure up to 13 mm. These are new from a [address] and may be related to edema. Likely from volume overload but will need f/u imaging 3-4 months to ensure resolution Admission and Anticipated Discharge Date Admission Date: January 18, 2023 Subjective Patient feels and looks improved from his baseline. He is in sinus rhythm has had good dialysis sessions and likely is near optimal volume status. Cardiology is transitioning from intravenous amiodarone to oral amiodarone Deconditioning is a significant problem and patient will likely need rehab but will continue watchful waiting Physical Exam Physical Exam: Patient remains with forehead contusion and periorbital ecchymosis Cardiac exam is regular without murmurs lungs are clear Extremities are without edema Results & Data Results & Data Vital Signs (Past 12 Hours) Vital Signs Temp Pulse Resp BP Pulse Ox O2 Del Method 01/24/23 04:00 97.9 F 73 18 151/76 H 95 Room Air 01/24/23 00:00 97.9 F 71 18 149/76 H 98 Room Air 01/23/23 20:00 97.9 F 71 20 141/72 H 95 Room Air PG Care Time/CCT Total # of Minutes Spent Total Time Spent with Patient: Total time spent is greater than 50% in coordination of care (as documented) at patient's floor/unit and/or counseling patient: Coding Level of Care Code 51623 SUB INP/OBS CARE 2/35MIN Diagnoses Acute respiratory failure with hypoxia J96.01 Atrial fibrillation with RVR I48.91 Acute on chronic HFrEF (heart failure with reduced ejection fraction) I50.23 Type II diabetes mellitus E11.9 Cirrhosis K74.60 Abnormal finding on lung imaging R91.8
[2023-01-24] MEDS: PANTOprazole 40 MG TAB PO SCH ×2 (08:24→21:32)
[2023-01-24] MEDS: INSULIN ASPART PER UNIT CHARGE SC SCH ×4 (08:24→21:29)
[2023-01-24] MEDS: VALSARTAN/SACUBITRIL 26/24MG TAB PO SCH ×2 (08:24→21:36)
[2023-01-24] MEDS: APIXABAN 5 MG TABLET PO SCH ×2 (08:24→21:31)
[2023-01-24] MEDS: ASPIRIN 81 MG ECTAB PO SCH (08:24)
[2023-01-24] MEDS: AMIODARONE 200 MG TAB PO SCH ×2 (08:24→16:39)
[2023-01-24] MEDS: carvediloL 12.5 MG TAB PO SCH ×2 (08:24→16:39)
--- NOTE | 2023-01-24 09:52 | Cardiology Progress Note ---
Date of Service January 24, 2023 Assessment & Plan (1) Paroxysmal atrial flutter: (2) HFrEF (heart failure with reduced ejection fraction): (3) V-tach: (4) Cardiomyopathy: (5) Syncope: Plan No further dysrhythmias. Off IV amiodarone, continue oral amiodarone 200 mg twice daily. BP remains elevated despite initiation of Entresto, therefore would continue to titrate carvedilol upward (increase to 25 mg twice daily). Suspect he is better able to tolerate vasoactive medications now that his rhythm is sinus. Admission and Anticipated Discharge Date Admission Date: January 18, 2023 Subjective Uneventful night. No complaints currently. Denies dyspnea or chest discomfort. Able to lie flat. Telemetry shows sinus rhythm consistently in the 74 bpm range. Physical Exam Physical Exam: No distress. BP moderately hypertensive. Pulse 76 bpm and regular. Skin: no ecchymoses or generalized lesions. HEENT: unremarkable. Neck: no JVD or carotid bruits. Lungs: clear. Cardiac: regular rhythm, no murmur or gallop. Abdomen: benign. Extremities: no edema, pulses intact. Neurologic: normal affect and conversation, nonfocal. Results & Data Vital Signs (Past 12 Hours) Vital Signs Temp Pulse Resp BP Pulse Ox O2 Del Method 01/24/23 08:20 97.5 F L 76 20 163/96 H 96 Room Air 01/24/23 04:00 97.9 F 73 18 151/76 H 95 Room Air 01/24/23 00:00 97.9 F 71 18 149/76 H 98 Room Air Laboratory Results Sodium 134, chloride 97, potassium 3.5, BUN 28, creatinine 5.0. PG Care Time/CCT Total # of Minutes Spent Total Time Spent with Patient: Total time spent is greater than 50% in coordination of care (as documented) at patient's floor/unit and/or counseling patient: Coding Level of Care Code 88260 SUB INP/OBS CARE 2/35MIN Diagnoses Paroxysmal atrial flutter I48.92 HFrEF (heart failure with reduced ejection fraction) I50.20 V-tach I47.20 Cardiomyopathy I42.9 Syncope R55
[2023-01-24] MEDS ORDERED: ALUMINUM/MAGNESIUM SUSP 30 ML UDC PO PRN (10:54)
[2023-01-24] MEDS ORDERED: ACETAMINOPHEN 500 MG TAB PO PRN (10:56)
[2023-01-24] MEDS: LORazepam 0.5 MG TAB PO PRN (12:10)
[2023-01-24] MEDS: traMADol HCL 50 MG TABLET PO PRN ×2 (12:10→21:47)
[2023-01-24] MEDS: allopurinoL 300 MG TAB PO SCH (21:30)
[2023-01-24] MEDS: ATORVASTATIN 40 MG TAB PO SCH (21:31)
[2023-01-24] MEDS: VENLAFAXINE HCL XR 75 MG CAPXR PO SCH (21:36)
[2023-01-24] MEDS: LORazepam 1 MG TAB PO PRN (21:46)
[2023-01-25 05:30] LABS: Basophils # (auto) 0.03 K/uL (0-0.2); Basophils % (auto) 0.4 %; Eosinophils # (auto) 0.07 K/uL (0-0.50); Eosinophils % (auto) 0.9 %; Hematocrit (blood only) 28.2 % (42.0-52.0); Immature Granulocytes # (auto) 0.14 K/uL (0.01-0.20); Immature Granulocytes % (auto) 1.9 %; Lymphocytes # (auto) 0.81 K/uL (1.2-3.4); Lymphocytes % (auto) 10.8 %; Mean Corpuscular Hemoglobin 30.2 pg (25.0-34.0); Mean Corpuscular Hgb Conc 31.9 g/dL (32.0-36.0); Mean Corpuscular Volume 94.6 fL (80.0-100.0); Mean Platelet Volume 13.5 fL (9.4-12.4); Monocytes # (auto) 0.51 K/uL (0.11-0.59); Monocytes % (auto) 6.8 %; Neutrophils # (auto) 5.92 K/uL (1.40-6.50); Neutrophils % (auto) 79.2 %; Nucleated RBC # (auto) 0.03 K/uL (0-0.12); Nucleated RBC % (auto) 0.4 %; Platelet Count 116 K/uL (130-400); RDW Coefficient of Variation 18.2 % (11.5-14.5); Red Blood Count 2.98 M/uL (4.70-6.10); White Blood Count 7.48 K/ul (4.8-10.8)
[2023-01-25 05:40] LABS: Partial Thromboplastin Ratio 1.7
[2023-01-25 05:51] LABS: Partial Thromboplastin Time 46.3 Seconds (21.0-31.0)
[2023-01-25 05:57] LABS: Albumin Level 2.4 gm/dl (3.4-5.0); Bilirubin,Total 0.8 mg/dl (0.2-1.0); Calcium 8.1 mg/dl (8.6-10.3); Potassium 3.5 mmol/L (3.5-5.1)
[2023-01-25 06:08] LABS: Albumin Globulin Ratio 0.8 (0.9-2); BUN Creatinine Ratio 6.1 (10-20); Creatinine Clr Calc Pharmacy 14.5 ml/min; Est GFR (African American) 10.8 ml/min; Est GFR (Non-African American) 9.3 ml/min; Globulin 2.9 gm/dl (2.5-4.0); Total Protein 5.3 gm/dl (6.0-8.3)
[2023-01-25] MEDS ORDERED: SODIUM CHLORIDE 0.9% 1000ML 1,000 ML IV PRN (07:00)
[2023-01-25] MEDS: INSULIN ASPART PER UNIT CHARGE SC SCH ×4 (07:49→21:02)
[2023-01-25] MEDS: carvediloL 12.5 MG TAB PO SCH ×3 (08:05→17:09)
[2023-01-25] MEDS: AMIODARONE 200 MG TAB PO SCH ×2 (08:05→17:09)
[2023-01-25] MEDS: APIXABAN 5 MG TABLET PO SCH ×2 (08:05→21:01)
[2023-01-25] MEDS: VALSARTAN/SACUBITRIL 26/24MG TAB PO SCH ×2 (08:06→21:02)
[2023-01-25] MEDS: PANTOprazole 40 MG TAB PO SCH ×2 (08:06→21:01)
[2023-01-25] MEDS: ASPIRIN 81 MG ECTAB PO SCH (08:06)
[2023-01-25] MEDS: LORazepam 0.5 MG TAB PO PRN (14:24)
[2023-01-25] MEDS: traMADol HCL 50 MG TABLET PO PRN (14:24)
--- NOTE | 2023-01-25 14:41 | Hospitalist Progress Note ---
Date of Service January 25, 2023 Assessment & Plan (1) Acute respiratory failure with hypoxia: Plan: Acute self-limited and resolved, tolerating room air acute respiratory failure secondary to acute systolic and diastolic heart failure secondary to a fib, cardiomyopathy and chronic renal failure on dialysis . extubated on 01/20 deconditioned and chronically ill improving daily PT evaluation for consideration of disposition (2) Atrial fibrillation with RVR: Plan: acute on chronic, now converted to NSR.(vtach in ER), hx afib and CHF w/ EF 20-25%, Cardiology consulted, V tach likely cause of s yncope, -- discussed w/ Dr Santiago, Dr Miller following, consideration for pacer given low EF/vtach this will be done in the office setting Atrial fibrillation we will currently transition to oral amiodarone. Continued on Coreg. On Eliquis for prevention of arterial thromboembolism Dr. Jain is managing antiarrhythmic agents Digoxin toxicity self-limited and resolved Chronic renal failure, moderate risk , Nephrology consulted given ESRD on HD M/W/, follows with [facility] nephrology and due for HD today recent malfunction, perm cath addressed by Dr Santiago 01/14 Mechanical fall at home (on Eliquis), moderate to severe risk, striking head on toilet and per continued weakness at home since discharge earlier this month along with bleeding issues with his perm cath--Holding Eliquis 2.5 mg BID (CT head negative on admit) --resumed Eliquis (3) Acute on chronic HFrEF (heart failure with reduced ejection fraction): Plan: Acute on Chronic moderate risk due to improvement prior ECHO, EF 20-25%, reportedly tachycardia induced tolerating carvedilol 12.5 twice daily Did not tolerate ENTRESTO per , hypotension/CKD Did not tolerate metoprolol 200mg daily due to hypotension CAD continue aspirin, statin, eliquis (4) Type II diabetes mellitus: Plan: no on any agents at home, last A1c 6.4 and reports BSGs into the 40s at home at night BSG AC/HS for now and monitor for any symptomatic hypoglycemia (5) Cirrhosis: Plan: Patient/ UNAWARE of evidence for cirrhosis, denied etoh use at home INR 2, LFTs elevated -- previously normal last admit have now normalized again possible congestive hepatopathy or morbid obesity with steatohepatitis (6) Abnormal finding on lung imaging: Plan: Irregular nodular airspace opacities measure up to 13 mm. These are new from a [address] and may be related to edema. Likely from volume overload but will need f/u imaging 3-4 months to ensure resol ution Admission and Anticipated Discharge Date Admission Date: January 18, 2023 Subjective Pt is awake and alert, did have dialysis successfully today, family updated at bedside new unstageable sacral decubitus noted, not present on admission tinea corporis rash noted Physical Exam Physical Exam: Patient remains with forehead contusion and periorbital ecchymosis Cardiac exam is regular without murmurs lungs are clear Extremities are without edema unstageable sacral decubitus ulcer noted Results & Data Results & Data Vital Signs (Past 12 Hours) Vital Signs Temp Pulse Pulse Resp BP BP Pulse Ox 01/25/23 13:26 87 18 145/83 H 96 01/25/23 12:00 88 127/70 01/25/23 11:30 87 136/80 01/25/23 11:00 85 122/84 01/25/23 10:30 81 111/75 01/25/23 10:00 81 135/96 01/25/23 09:30 82 165/88 H 01/25/23 09:17 82 177/92 H 01/25/23 09:08 97.3 F L 83 01/25/23 08:00 97.5 F L 82 20 159/84 H 95 01/25/23 04:00 98.6 F 70 20 167/71 H 95 O2 Del Method 01/25/23 13:26 Room Air 01/25/23 12:00 01/25/23 11:30 01/25/23 11:00 01/25/23 10:30 01/25/23 10:00 01/25/23 09:30 01/25/23 09:17 01/25/23 09:08 01/25/23 08:00 Room Air 01/25/23 04:00 Room Air Laboratory Results Reviewed CBC Reviewed PTT Reviewed PRP PG Care Time/CCT Total # of Minutes Spent Total Time Spent with Patient: Total time spent is greater than 50% in coordination of care (as documented) at patient's floor/unit and/or counseling patient: Coding Level of Care Code 09837 SUB INP/OBS CARE 2/35MIN Diagnoses Acute respiratory failure with hypoxia J96.01 Atrial fibrillation with RVR I48.91 Acute on chronic HFrEF (heart failure with reduced ejection fraction) I50.23 Type II diabetes mellitus E11.9 Cirrhosis K74.60 Abnormal finding on lung imaging R91.8
--- NOTE | 2023-01-25 19:42 | Dialysis Progress Note ---
Date of Service January 25, 2023 Assessment & Plan (1) ESRD (end stage renal disease): Plan: for routine HD today > seen on dialysis and no acute issues; tolerated 3L UF w/o sx >Plan next HD on 01/27 or sooner as clinical needs dictate -iron studies and phos ordered for am Admission and Anticipated Discharge Date Admission Date: January 18, 2023 Subjective seen on HD today at 1100; no sob; no dypsnea; tolerating treatment w/o issue Review of Systems Review of Systems: All systems reviewed & are unremarkable except as noted in Subjective Physical Exam Constitutional: well developed, well nourished and + obese; no acute distress Eyes: EOM intact bilaterally ENMT: Ears: no external ear abnormality Nose: no external nose abnormality Mouth: + dry oral mucous membranes Neck: no nuchal rigidity Respiratory: normal respiratory effort Auscultation: + diminished lung sounds Gastrointestinal (Abdomen): Inspection/Auscultation: normal bowel sounds Percussion/Palpation: abdomen soft; abdomen nontender Musculoskeletal: Extremities: strength 5/5 throughout Skin: no rashes, warm and dry Trauma: + contusion and + periorbital ecchymosis Neurologic: nair, fluent speech, no tremor Results & Data Vital Signs (Past 12 Hours) Vital Signs Temp Pulse Pulse Pulse Pulse Resp BP 01/25/23 19:32 36.6 C 85 20 01/25/23 12:51 36.5 C 88 01/25/23 12:30 91 H 98/50 L 01/25/23 15:41 36.6 C 91 H 18 01/25/23 13:26 87 18 01/25/23 12:00 88 127/70 01/25/23 11:30 87 136/80 01/25/23 11:00 85 122/84 01/25/23 10:30 81 111/75 01/25/23 10:00 81 135/96 01/25/23 09:30 82 165/88 H 01/25/23 09:17 82 177/92 H 01/25/23 09:08 36.3 C L 83 01/25/23 08:00 36.4 C L 82 20 BP Pulse Ox O2 Del Method 01/25/23 19:32 131/78 95 Room Air 01/25/23 12:51 130/74 01/25/23 12:30 01/25/23 15:41 133/78 93 Room Air 01/25/23 13:26 145/83 H 96 Room Air 01/25/23 12:00 01/25/23 11:30 01/25/23 11:00 01/25/23 10:30 01/25/23 10:00 01/25/23 09:30 01/25/23 09:17 01/25/23 09:08 01/25/23 08:00 159/84 H 95 Room Air Laboratory Results 01/25/23 04:17 01/25/23 04:17
[2023-01-25] MEDS: allopurinoL 300 MG TAB PO SCH (21:01)
[2023-01-25] MEDS: ATORVASTATIN 40 MG TAB PO SCH (21:01)
[2023-01-25] MEDS: VENLAFAXINE HCL XR 75 MG CAPXR PO SCH (21:02)
[2023-01-26] MEDS: traMADol HCL 50 MG TABLET PO PRN (00:41)
[2023-01-26 05:07] LABS: Albumin Globulin Ratio 0.8 (0.9-2); Albumin Level 2.5 gm/dl (3.4-5.0); BUN Creatinine Ratio 6.3 (10-20); Bilirubin,Total 0.9 mg/dl (0.2-1.0); Creatinine Clr Calc Pharmacy 19.8 ml/min; Est GFR (African American) 15.8 ml/min; Est GFR (Non-African American) 13.7 ml/min; Phosphorus 2.5 mg/dl (2.5-4.9); Potassium 3.7 mmol/L (3.5-5.1); Total Protein 5.5 gm/dl (6.0-8.3)
[2023-01-26 05:30] LABS: Partial Thromboplastin Ratio 1.7
[2023-01-26 05:49] LABS: Partial Thromboplastin Time 45.8 Seconds (21.0-31.0)
--- NOTE | 2023-01-26 07:30 | Hospitalist Progress Note ---
Date of Service January 26, 2023 Assessment & Plan (1) Acute respiratory failure with hypoxia: Plan: Acute self-limited and resolved, tolerating room air acute respiratory failure secondary to acute systolic and diastolic heart failure secondary to a fib, cardiomyopathy and chronic renal failure on dialysis . extubated on 01/20 deconditioned and chronically ill improving daily PT evaluation for consideration of disposition (2) Atrial fibrillation with RVR: Plan: acute on chronic, now converted to NSR.(vtach in ER), hx afib and CHF w/ EF 20-25%, Cardiology consulted, V tach likely cause of s yncope, -- discussed w/ Dr Santiago, Dr Miller following, consideration for pacer given low EF/vtach this will be done in the office setting Atrial fibrillation we will currently transition to oral amiodarone. Continued on Coreg. On Eliquis for prevention of arterial thromboembolism Dr. Jain is managing antiarrhythmic agents Digoxin toxicity self-limited and resolved Chronic renal failure, moderate risk , Nephrology consulted given ESRD on HD M/W/, follows with [facility] nephrology and due for HD today recent malfunction, perm cath addressed by Dr Santiago 01/14 Mechanical fall at home (on Eliquis), moderate to severe risk, striking head on toilet and per continued weakness at home since discharge earlier this month along with bleeding issues with his perm cath--Holding Eliquis 2.5 mg BID (CT head negative on admit) --resumed Eliquis (3) Acute on chronic HFrEF (heart failure with reduced ejection fraction): Plan: Acute on Chronic moderate risk due to improvement prior ECHO, EF 20-25%, reportedly tachycardia induced tolerating carvedilol 12.5 twice daily Did not tolerate ENTRESTO per , hypotension/CKD Did not tolerate metoprolol 200mg daily due to hypotension CAD continue aspirin, statin, eliquis (4) Type II diabetes mellitus: Plan: no on any agents at home, last A1c 6.4 and reports BSGs into the 40s at home at night BSG AC/HS for now and monitor for any symptomatic hypoglycemia (5) Cirrhosis: Plan: Patient/ UNAWARE of evidence for cirrhosis, denied etoh use at home INR 2, LFTs elevated -- previously normal last admit have now normalized again possible congestive hepatopathy or morbid obesity with steatohepatitis (6) Abnormal finding on lung imaging: Plan: Irregular nodular airspace opacities measure up to 13 mm. These are new from a [address] and may be related to edema. Likely from volume overload but will need f/u imaging 3-4 months to ensure resol ution Admission and Anticipated Discharge Date Admission Date: January 18, 2023 Subjective Patient has no complaints or problems he is actually feeling fairly well today. Cardiac rhythm and rate remain controlled blood counts have been stable,anticoagulation and antiplatelet medications likely will benefit from rehabilitation prior to going home Physical Exam Physical Exam: Patient remains with forehead contusion and periorbital ecchymosis these are fading slowly over time Cardiac exam is regular without murmurs lungs are clear Extremities are without edema unstageable sacral decubitus ulcer noted as well as tinea on his posterior thighs and buttocks Results & Data Results & Data Vital Signs (Past 12 Hours) Vital Signs Temp Pulse Pulse Resp BP Pulse Ox O2 Del Method 01/26/23 03:50 98.1 F 85 18 110/60 94 Room Air 01/26/23 00:00 97.7 F 82 15 109/68 94 Room Air 01/25/23 19:32 97.9 F 85 20 131/78 95 Room Air Laboratory Results Reviewed chemistry Reviewed coagulation PG Care Time/CCT Total # of Minutes Spent Total Time Spent with Patient: Total time spent is greater than 50% in coordination of care (as documented) at patient's floor/unit and/or counseling patient: Coding Level of Care Code 75041 SUB INP/OBS CARE 2/35MIN Diagnoses Acute respiratory failure with hypoxia J96.01 Atrial fibrillation with RVR I48.91 Acute on chronic HFrEF (heart failure with reduced ejection fraction) I50.23 Type II diabetes mellitus E11.9 Cirrhosis K74.60 Abnormal finding on lung imaging R91.8
[2023-01-26] MEDS: INSULIN ASPART PER UNIT CHARGE SC SCH ×4 (08:45→21:17)
[2023-01-26] MEDS: AMIODARONE 200 MG TAB PO SCH ×2 (08:57→16:54)
[2023-01-26] MEDS: ASPIRIN 81 MG ECTAB PO SCH (08:58)
[2023-01-26] MEDS: carvediloL 12.5 MG TAB PO SCH ×2 (08:58→16:55)
[2023-01-26] MEDS: PANTOprazole 40 MG TAB PO SCH ×2 (08:58→21:18)
[2023-01-26] MEDS: VALSARTAN/SACUBITRIL 26/24MG TAB PO SCH ×2 (08:58→21:20)
[2023-01-26] MEDS: APIXABAN 5 MG TABLET PO SCH ×2 (08:58→21:19)
--- NOTE | 2023-01-26 09:12 | Nephrology Progress Note ---
Date of Service January 26, 2023 Assessment & Plan (1) ESRD (end stage renal disease): Plan: for routine HD today > seen on dialysis and no acute issues; tolerated 3L UF w/o sx >Plan next HD on 01/27 or sooner as clinical needs dictate -iron studies and phos ordered for am Admission and Anticipated Discharge Date Admission Date: January 18, 2023 Physical Exam Constitutional: well developed, well nourished and + obese; no acute distress Eyes: EOM intact bilaterally ENMT: Ears: no external ear abnormality Nose: no external nose abnormality Mouth: + dry oral mucous membranes Neck: no nuchal rigidity Respiratory: normal respiratory effort Auscultation: + diminished lung sounds Gastrointestinal (Abdomen): Inspection/Auscultation: normal bowel sounds Percussion/Palpation: abdomen soft; abdomen nontender Musculoskeletal: Extremities: strength 5/5 throughout Skin: no rashes, warm and dry Trauma: + contusion and + periorbital ecchymosis Results & Data Vital Signs (Past 12 Hours) Vital Signs Temp Pulse Resp BP Pulse Ox O2 Del Method 01/26/23 03:50 36.7 C 85 18 110/60 94 Room Air 01/26/23 00:00 36.5 C 82 15 109/68 94 Room Air
--- NOTE | 2023-01-26 12:44 | Cardiology Progress Note ---
Date of Service January 26, 2023 Assessment & Plan (1) Paroxysmal atrial flutter: (2) HFrEF (heart failure with reduced ejection fraction): (3) V-tach: (4) Cardiomyopathy: (5) Syncope: Plan No further dysrhythmias. Off IV amiodarone, continue oral amiodarone 200 mg twice daily. BP labile, elevated yesterday but borderline low today. May vary quite a bit with dialysis, consider higher dose of carvedilol on nondialysis days if hypertension follows an off dialysis day pattern. Admission and Anticipated Discharge Date Admission Date: January 18, 2023 Subjective Uneventful night. No complaints currently. Denies dyspnea or chest discomfort. Able to lie flat. Telemetry shows sinus rhythm consistently in the 70-80 bpm range, no dysrhythmias. Physical Exam Physical Exam: No distress. BP normotensive. Pulse 80 bpm and regular without ectopy. Skin: no generalized lesions. HEENT: Forehead hematoma, unchanged. Neck: no JVD or carotid bruits. Lungs: clear. Cardiac: regular rhythm, no murmur or gallop. Abdomen: benign. Extremities: no edema, pulses intact. Neurologic: normal affect and conversation, nonfocal. Results & Data Vital Signs (Past 12 Hours) Vital Signs Temp Pulse Resp BP Pulse Ox O2 Del Method 01/26/23 08:00 97.7 F 83 17 132/81 92 Room Air 01/26/23 03:50 98.1 F 85 18 110/60 94 Room Air Laboratory Results Sodium 133, chloride 99, potassium 37, BUN 27, creatinine 4.3. PG Care Time/CCT Total # of Minutes Spent Total Time Spent with Patient: Total time spent is greater than 50% in coordination of care (as documented) at patient's floor/unit and/or counseling patient: Coding Level of Care Code 35140 SUB INP/OBS CARE 25MIN Diagnoses Paroxysmal atrial flutter I48.92 HFrEF (heart failure with reduced ejection fraction) I50.20 V-tach I47.20 Cardiomyopathy I42.9 Syncope R55
[2023-01-26] MEDS: allopurinoL 300 MG TAB PO SCH (21:18)
[2023-01-26] MEDS: ATORVASTATIN 40 MG TAB PO SCH (21:19)
[2023-01-26] MEDS: VENLAFAXINE HCL XR 75 MG CAPXR PO SCH (21:19)
[2023-01-26] MEDS: LORazepam 1 MG TAB PO PRN (21:25)
[2023-01-27 06:22] LABS: Albumin Level 2.4 gm/dl (3.4-5.0); Bilirubin,Total 0.8 mg/dl (0.2-1.0); Potassium 3.8 mmol/L (3.5-5.1)
[2023-01-27 06:35] LABS: Albumin Globulin Ratio 0.8 (0.9-2); BUN Creatinine Ratio 7.3 (10-20); Creatinine Clr Calc Pharmacy 15.6 ml/min; Est GFR (African American) 11.8 ml/min; Est GFR (Non-African American) 10.2 ml/min; Globulin 2.9 gm/dl (2.5-4.0); Total Protein 5.3 gm/dl (6.0-8.3)
[2023-01-27 06:36] LABS: Basophils # (auto) 0.05 K/uL (0-0.2); Basophils % (auto) 0.6 %; Eosinophils # (auto) 0.06 K/uL (0-0.50); Eosinophils % (auto) 0.8 %; Hematocrit (blood only) 28.6 % (42.0-52.0); Hemoglobin 9.2 g/dl (14.0-18.0); Immature Granulocytes # (auto) 0.13 K/uL (0.01-0.20); Immature Granulocytes % (auto) 1.6 %; Lymphocytes # (auto) 0.98 K/uL (1.2-3.4); Lymphocytes % (auto) 12.3 %; Mean Corpuscular Hemoglobin 30.2 pg (25.0-34.0); Mean Corpuscular Hgb Conc 32.2 g/dL (32.0-36.0); Mean Corpuscular Volume 93.8 fL (80.0-100.0); Mean Platelet Volume 13.4 fL (9.4-12.4); Monocytes # (auto) 0.72 K/uL (0.11-0.59); Monocytes % (auto) 9.1 %; Neutrophils % (auto) 75.6 %; Nucleated RBC # (auto) 0.02 K/uL (0-0.12); Nucleated RBC % (auto) 0.3 %; Platelet Count 90 K/uL (130-400); RDW Coefficient of Variation 18.7 % (11.5-14.5); RDW Standard Deviation 58.9 fL (36.4-46.3); Red Blood Count 3.05 M/uL (4.70-6.10); White Blood Count 7.94 K/ul (4.8-10.8)
[2023-01-27] MEDS ORDERED: SODIUM CHLORIDE 0.9% 1000ML 1,000 ML IV PRN ×2 (07:47→08:00)
--- NOTE | 2023-01-27 07:47 | Hospitalist Progress Note ---
Date of Service January 27, 2023 Assessment & Plan (1) Acute respiratory failure with hypoxia: Plan: Acute self-limited and resolved, tolerating room air acute respiratory failure secondary to acute systolic and diastolic heart failure secondary to a fib, cardiomyopathy and chronic renal failure on dialysis . extubated on 01/20 deconditioned and chronically ill consideration of disposition may benefit from SNF (2) Atrial fibrillation with RVR: Plan: acute on chronic, now converted to NSR.(vtach in ER), hx afib and chronic systolic heart failure, w/ EF 20-25%, Cardiology consulted, V tach likely cause of syncope, -- discussed w/ Dr Santiago, Dr Miller following, consideration for pacer given low EF/vtach this will be done in the office setting Atrial fibrillationoral amiodarone. Continued on Coreg increased dose from home. On Eliquis for prevention of arterial thromboembolism Dr. Jain is managing antiarrhythmic agents Digoxin toxicity self-limited and resolved, no further digoxin Chronic renal failure, moderate risk , Nephrology consulted given ESRD on HD M//, follows with [facility] and due for HD today recent malfunction, perm cath addressed by Dr Santiago 01/14 Mechanical fall at home (on Eliquis), moderate to severe risk, striking head on toilet and per continued weakness at home since discharge earlier this month along with bleeding issues with his perm cath--resumed eliquis and aspirin (3) Acute on chronic HFrEF (heart failure with reduced ejection fraction): Plan: Acute on Chronic moderate risk due to improvement prior ECHO, EF 20-25%, reportedly tachycardia induced tolerating carvedilol 12.5 twice daily tolerating low dose entresto, coreg, not on daily diuretic, volume status managed by dialysis (4) Type II diabetes mellitus: Plan: no on any agents at home, last A1c 6.4 and reports BSGs into the 40s at home at night BSG AC/HS for now and monitor for any symptomatic hypoglycemia (5) Cirrhosis: Plan: Patient/ UNAWARE of evidence for cirrhosis, denied etoh use at home INR 2, LFTs elevated on admit since improved - possible congestive hepatopathy or morbid obesity with steatohepatitis (6) Abnormal finding on lung imaging: Plan: Irregular nodular airspace opacities measure up to 13 mm. These are new from a [address] and may be related to edema. Likely from volume overload but will need f/u imaging 3-4 months to ensure resolution Admission and Anticipated Discharge Date Admission Date: January 18, 2023 Subjective Patient has no complaints or problems he is actually feeling fairly well today after dialysis. Cardiac rhythm and rate remain controlled blood counts have been stable,anticoagulation and antiplatelet medications likely will benefit from rehabilitation prior to going home Physical Exam Physical Exam: Patient remains with forehead contusion and periorbital ecchymosis these are fading slowly over time Cardiac exam is regular without murmurs lungs are clear Extremities are without edema unstageable sacral decubitus ulcer noted as well as tinea on his posterior thighs and buttocks Results & Data Results & Data Vital Signs (Past 12 Hours) Vital Signs Temp Pulse Pulse Resp BP Pulse Ox O2 Del Method 01/27/23 04:00 98.2 F 76 18 158/77 H 94 Room Air 01/27/23 00:00 78 01/27/23 00:00 98.2 F 78 16 149/74 H 94 Room Air 01/26/23 20:00 98.2 F 77 16 142/75 H 95 Room Air PG Care Time/CCT Total # of Minutes Spent Total Time Spent with Patient: Total time spent is greater than 50% in coordination of care (as documented) at patient's floor/unit and/or counseling patient: Coding Level of Care Code 46277 SUB INP/OBS CARE 2/35MIN Diagnoses Acute respiratory failure with hypoxia J96.01 Atrial fibrillation with RVR I48.91 Acute on chronic HFrEF (heart failure with reduced ejection fraction) I50.23 Type II diabetes mellitus E11.9 Cirrhosis K74.60 Abnormal finding on lung imaging R91.8
[2023-01-27] MEDS ORDERED: EPOETIN ALFA 10,000 UNITS/ML VIAL IV SCH (08:00)
[2023-01-27] MEDS ORDERED: IRON SUCROSE 100 MG in SYRINGE 0 ML IV SCH (08:00)
[2023-01-27] MEDS ORDERED: HEPARIN SOD (PORCINE) 1000 UNIT/ML IV SCH (08:00)
[2023-01-27] MEDS: INSULIN ASPART PER UNIT CHARGE SC SCH ×4 (08:00→21:10)
[2023-01-27] MEDS: AMIODARONE 200 MG TAB PO SCH ×2 (08:26→18:08)
[2023-01-27] MEDS: APIXABAN 5 MG TABLET PO SCH ×2 (08:26→21:11)
[2023-01-27] MEDS: PANTOprazole 40 MG TAB PO SCH ×2 (08:26→21:12)
[2023-01-27] MEDS: ASPIRIN 81 MG ECTAB PO SCH (08:27)
[2023-01-27] MEDS: HEPARIN SOD (PORCINE) 1000 UNIT/ML IV SCH ×3 (10:03→12:07)
[2023-01-27] MEDS: VALSARTAN/SACUBITRIL 26/24MG TAB PO SCH ×2 (13:01→21:13)
[2023-01-27] MEDS: carvediloL 12.5 MG TAB PO SCH ×2 (13:01→18:09)
--- NOTE | 2023-01-27 15:12 | Dialysis Progress Note ---
Date of Service January 27, 2023 Assessment & Plan (1) ESRD (end stage renal disease): Plan: for routine HD today > seen on dialysis and no acute issues; tolerated 3L UF w/o sx >Plan next HD on 01/27 or sooner as clinical needs dictate >on 01/26 t satn 19% >> starting iron load -phos on 01/27 is 2.5; not currently on binders which is appropriate Admission and Anticipated Discharge Date Admission Date: January 18, 2023 Subjective no interval events; feeling a bit better. seen on dialysis and tolerating tx well. also reviewed his care w/ separately at pt request - she worries about his poor appetite and sacral wound Review of Systems Review of Systems: All systems reviewed & are unremarkable except as noted in Subjective Physical Exam Constitutional: well developed and well nourished Eyes: EOM intact bilaterally ENMT: Ears: no external ear abnormality Nose: no external nose abnormality Mouth: + dry oral mucous membranes Neck: no nuchal rigidity Respiratory: normal respiratory effort Auscultation: + diminished lung sounds Cardiovascular: Rate/Rhythm: + tachycardic Extremities: no edema Gastrointestinal (Abdomen): Inspection/Auscultation: normal bowel sounds Percussion/Palpation: abdomen soft; abdomen nontender Musculoskeletal: Extremities: strength 5/5 throughout Skin: no rashes, warm and dry Trauma: + contusion and + periorbital ecchymosis Neurologic: nair, fluent speech, no tremor Results & Data Vital Signs (Past 12 Hours) Vital Signs Temp Pulse Pulse Pulse Pulse Resp BP 01/27/23 13:14 92 H 16 01/27/23 12:29 36.6 C 91 H 01/27/23 12:00 90 108/51 L 01/27/23 11:30 72 105/75 01/27/23 11:00 83 101/69 01/27/23 08:00 85 01/27/23 10:30 83 115/80 01/27/23 10:00 81 138/80 01/27/23 09:30 83 121/91 01/27/23 09:00 80 144/80 H 01/27/23 08:56 78 148/78 H 01/27/23 08:50 36.4 C L 81 01/27/23 07:44 79 16 01/27/23 04:00 36.8 C 76 18 BP Pulse Ox O2 Del Method 01/27/23 13:14 121/74 97 Room Air 01/27/23 12:29 101/62 01/27/23 12:00 01/27/23 11:30 01/27/23 11:00 01/27/23 08:00 01/27/23 10:30 01/27/23 10:00 01/27/23 09:30 01/27/23 09:00 01/27/23 08:56 01/27/23 08:50 01/27/23 07:44 163/73 H 93 Room Air 01/27/23 04:00 158/77 H 94 Room Air Laboratory Results 01/27/23 05:51 01/27/23 05:56
[2023-01-27] MEDS: LORazepam 0.5 MG TAB PO PRN (15:43)
[2023-01-27] MEDS: ATORVASTATIN 40 MG TAB PO SCH (21:11)
[2023-01-27] MEDS: allopurinoL 300 MG TAB PO SCH (21:12)
[2023-01-27] MEDS: VENLAFAXINE HCL XR 75 MG CAPXR PO SCH (21:13)
[2023-01-28] MEDS: LORazepam 1 MG TAB PO PRN (00:31)
[2023-01-28] MEDS: VALSARTAN/SACUBITRIL 26/24MG TAB PO SCH (08:44)
[2023-01-28] MEDS: AMIODARONE 200 MG TAB PO SCH (08:44)
[2023-01-28] MEDS: PANTOprazole 40 MG TAB PO SCH (08:44)
[2023-01-28] MEDS: ASPIRIN 81 MG ECTAB PO SCH (08:44)
[2023-01-28] MEDS: APIXABAN 5 MG TABLET PO SCH (08:44)
[2023-01-28] MEDS: INSULIN ASPART PER UNIT CHARGE SC SCH ×2 (08:45→12:22)
[2023-01-28] MEDS: carvediloL 12.5 MG TAB PO SCH (08:45)
[2023-01-28] MEDS: buPROPion SR 100 MG TABCR PO SCH (09:27)
--- NOTE | 2023-01-28 13:14 | Discharge Summary ---
Date of Service January 28, 2023 Admission HPI Per Admitting Provider 62yo male with significant PMHx presented from fall at home into the toilet and striking his head (hematoma on exam) found to be in volume overload/elevated LFTs and ER was working on getting CTAP for eval. CTAP noted cirrhosis, imaging w/ volume overload. Discussed w/ and no known history of alcohol use (she endorses use herself) and that he does HD M/W/F and issues recently with perm-cath and bleeding. She notes that he had been extremely weak since discharge last admission and BSGs always low and giving regular sodas to get these up. Most recent prior to fall was 120. Also noted his O2 has been consistently in the 80s and they are sharing oxygen and that he typically has been wearing 2L NC. She notes he has ONLY been taking the eliquis and amiodarone for his heart (but that he is also on atorvastatin and aspirin 2 tablets in AM). Metoprolol was NOT on medication list. She states he has been having nausea/vomiting and unable to keep anything down at home. On zofran but not very effective. Notes phenergan makes him mean but that she would prefer nausea addressed. No issues noted w/ swallowing at baseline. She notes that he has been weak and not in good shape since his last admission and ongoing issues. Prior EF 20-25%. Does make urine. Yvette ordered w/ [facility] for volume overload, nephrology contacted about need for HD. Was given Cardizem in ER for afib RVR w rates to 157bpm on EKG w/ T wave abnormality. Troponin elevated to 2275 from priors in 200s. Patient developed vtach for about a minute/minute and a half after Cardizem infused and then converted out and given amio bolus at present and starting gtt. Mag 2.0 on labs. Patient moved to B1, sitting in bed, denies any chest pain or shortness of breath/palpitations. Perm cath to chest, dressing in place. On 3L NC, HR in 120-130s, afib. Hgb 9.1 around baseline, WBC 8k, INR 2.0. Na 133. Chlo 87. Anion gap 19. Cr 7.66. Ca 8.5 w/ ionized Ca 1.03. TB 1.1, AST 2496, ALT 457 but ALP wnl 104. Albumin 2.9. Discussed w/ Dr Santiago and Dr Miller will do consultation for consideration pacer/defibrillator given Vtach, rec admission to ICU. Discussed w/ Dr Hopper who is updating ICU provider given patient prior EF 20- 25% and vtach. Mag 2.0 but will order 1gm IV now. Ordered dose metoprolol IV x 1 now, patient previously to be on metoprolol 200mg but per prior cards not was off this due to significant hypotension on 01/07/23 and at that point was consdidering aflutter ablation so that they could take him off the amiodarone and put back on lower dose Toprol XL. Principal Diagnosis problem 1 Discharge Exam Patient remains with forehead contusion and periorbital ecchymosis these are fading slowly over time Cardiac exam is regular without murmurs lungs are clear Extremities are without edema unstageable sacral decubitus ulcer noted as well as tinea on his posterior thighs and buttocks Discharge Data Allergies Allergy/AdvReac Type Severity Reaction Status Date / Time promethazine [From Phenergan] AdvReac Intermediate Makes Verified 01/14/23 13:03 "mean" simvastatin [From Zocor] AdvReac Intermediate Headache Verified 01/14/23 13:03 oxycodone [From Percocet] AdvReac Mild Itching Verified 01/14/23 13:03 acetaminophen [From Percocet] AdvReac Unknown Told to Verified 01/14/23 13:03 avoid Consultations 01/18/23 08:13 ED Decision to Admit Stat 01/18/23 08:27 Consult Cardiology Routine Consult Nephrology Routine 01/18/23 10:19 Consult Health Information Tech Routine 01/18/23 10:59 Consult Gastroenterology Stat Ordered Studies 01/18/23 05:43 CT cervical spine wo con Stat CT facial bones wo con Stat 01/18/23 05:44 CT head/brain wo con Stat 01/18/23 07:09 CT Abd and Pelvis [CT abd pelvis IV con only] Stat CT chest diagnostic w con Stat Hospital Course (1) Acute respiratory failure with hypoxia: Acute self-limited and resolved, tolerating room air acute respiratory failure secondary to acute systolic and diastolic heart failure secondary to a fib, cardiomyopathy and chronic renal failure on dialysis . extubated on 01/20 deconditioned and chronically ill consideration of disposition may benefit from SNF. Patient will be discharged later today. (2) Atrial fibrillation with RVR: acute on chronic, now converted to NSR.(vtach in ER), hx afib and chronic systolic heart failure, w/ EF 20-25%, Cardiology consulted, V tach likely cause of syncope, -- discussed w/ Dr Santiago, Dr Miller following, consideration for pacer given low EF/vtach this will be done in the office setting Atrial fibrillationoral amiodarone. Continued on Coreg increased dose from home. On Eliquis for prevention of arterial thromboembolism Dr. Jain is managing antiarrhythmic agents Digoxin toxicity self-limited and resolved, no further digoxin Chronic renal failure, moderate risk , Nephrology consulted given ESRD on HD M//, follows with [facility] and due for HD today recent malfunction, perm cath addressed by Dr Santiago 01/14 Mechanical fall at home (on Eliquis), moderate to severe risk, striking head on toilet and per continued weakness at home since discharge earlier this month along with bleeding issues with his perm cath--resumed eliquis and aspirin (3) Acute on chronic HFrEF (heart failure with reduced ejection fraction): Acute on Chronic moderate risk due to improvement prior ECHO, EF 20-25%, reportedly tachycardia induced tolerating carvedilol 12.5 twice daily tolerating low dose entresto, coreg, not on daily diuretic, volume status managed by dialysis (4) Type II diabetes mellitus: no on any agents at home, last A1c 6.4 and reports BSGs into the 40s at home at night monitored for any symptomatic hypoglycemia (5) Cirrhosis: Patient/ UNAWARE of evidence for cirrhosis, denied etoh use at home INR 2, LFTs elevated on admit since improved - possible congestive hepatopathy or morbid obesity with steatohepatitis will defer to PCP, will likely need GI followup. (6) Abnormal finding on lung imaging: Irregular nodular airspace opacities measure up to 13 mm. These are new from a [address] and may be related to edema. Likely from volume overload but will need f/u imaging 3-4 months to ensure resolution Total Time Total Time Spent Total Time Spent (In Minutes): 32 Discharge Plan Discharge Items Patient Disposition: Transfer Longterm Fac Reason For Visit: AFIB RVR, FALL, WEAKNESS Discharge Diagnosis: a fib/ cirrhosis/ wekaness Activity: Resume your previous activity Non-emergency contact: Primary Care Provider Call non-emergency contact if: you have any medication questions Follow-up/Referrals: Yoandy Javed MD [Primary Care Provider] - Diet: Dialysis Renal and Low Sodium (2gm) Addtl Attending Provider Instructions: Followup with Cardiology in 1 week. Continue Dialysis on M<W<F Abnormal finding on lung imaging: Irregular nodular airspace opacities measure up to 13 mm. These are new from a [address] and may be related to edema. Likely from volume overload but will need follow up imaging in 3-4 months to ensure resolution Pending Studies at Discharge: No Stand-Alone Forms: My [facility] Skilled Items Patient informed of condition?: Yes DNR: No Discharge Level of Care: Skilled Communicable Disease: No Discharge Prognosis: Stable Lines: None Urinary Catheter: No Medications and DC Order Prescriptions: New Eliquis 5 mg Tablet 5 mg PO BID Qty: 60 0RF Entresto 24-26 mg Tablet 1 tab PO BID Qty: 60 0RF carvedilol 12.5 mg Tablet 12.5 mg PO BIDM Qty: 60 0RF acetaminophen 325 mg tablet 650 mg PO Q6H PRN (Reason: pain) Qty: 90 0RF Continued nitroglycerin 0.4 mg tablet, sublingual 0.4 mg SL UD PRN (Reason: Chest Pain) Qty: 25 1RF Rx Instructions: NEEDED FOR CHEST PAIN : ONE TABLET UNDER THE TONGUE EVERY 5 MINUTES UP TO 3 DOSES. allopurinol 300 mg tablet 300 mg PO HS Qty: 90 3RF atorvastatin 40 mg tablet 40 mg PO HS Qty: 90 3RF tamsulosin [Flomax] 0.4 mg capsule 0.4 mg PO HS Qty: 90 3RF venlafaxine 225 mg tablet extended release 24hr 225 mg PO HS Qty: 90 3RF bupropion HCl 100 mg tablet sustained-release 12 hr 100 mg PO DAILY Qty: 30 2RF nystatin 100,000 unit/gram cream 1 appln TOP BID PRN (Reason: Skin Irritation) Patient Comments: to foot and groin ; tramadol 50 mg tablet 50 mg PO BID Qty: 60 0RF Rx Instructions: Supervising Yoandy Javed MD [facility] [id number] ondansetron 8 mg tablet,disintegrating 8 mg PO Q8H PRN (Reason: nausea and vomiting) Qty: 30 1RF Rx Instructions: Take 1 tablet under the tongue every 8 hours as needed for nausea and vomiting triamcinolone acetonide 0.1 % cream 1 applic TOP BID PRN (Reason: flare up) ferrous sulfate 325 mg (65 mg iron) Tablet,Delayed Release (Dr/Ec) 325 mg PO MOWEFR Qty: 15 0RF aspirin 81 mg Tablet 81 mg PO BID tadalafil [Cialis] 20 mg tablet 20 mg PO DAILY PRN (Reason: sexual activity) lorazepam 1 mg tablet 1 mg PO QPM PRN (Reason: sleep) Rx Instructions: Take 1 to 1.5 tablets by mouth every evening as needed for sleep. Changed amiodarone 200 mg tablet 200 mg PO BID Qty: 60 0RF Rx Instructions: Take 1 tablet by mouth every day Discontinued omeprazole 20 mg capsule,delayed release(DR/EC) 20 mg PO QAM Qty: 90 3RF Eliquis 2.5 mg tablet 2.5 mg PO BID Qty: 180 3RF oxycodone 5 mg capsule 5 mg PO Q6H PRN (Reason: pain) Qty: 30 0RF Hold Instructions: Home Medication placed on hold at Doctor's office Entresto 24-26 mg tablet 1 tab PO DIRECTED Rx Instructions: Take 1 tablet by mouth twice, except on - only take evening dose. Discharge Orders: Discharge Order- [facility] (Routine); Ordered 01/28/23 Ordered By: Dylan Rao Admission Data Admit Date/Time: 01/18/23 09:26 Attending Provider: Dylan Rao Admit Provider: Javan Hopper Primary Care Provider: Yoandy Javed Other Providers: [place] ; Javan Hopper ; Yoandy Santiago ; Yan Mcdonald ; Roni Suero ; Gaston Connor ; Feroz Kathleen ; Carli Robertson ; Crissy Brink ; Za Rivera ; Cora Villareal ; Edgar Marshall ; Kyler Walker ; Adeel Loomis ; Wicho Castelan ; Zeferino Toribio ; Azalea Fernandez ; Yadi Benavidez ; Candida Avila ; Kailee Mcnamara ; Devyn Sandovla ; Bhaskar Ventura ; Elder Mckoy ; Heena Islas ; Marion Neumann Jr Coding Level of Care Code 45999 INP/OBS DISCH >30 MIN Diagnoses Acute respiratory failure with hypoxia J96.01 Atrial fibrillation with RVR I48.91 Acute on chronic HFrEF (heart failure with reduced ejection fraction) I50.23 Type II diabetes mellitus E11.9 Cirrhosis K74.60 Abnormal finding on lung imaging R91.8
[2023-01-28] MEDS: LORazepam 0.5 MG TAB PO PRN (15:04)
== END 2023-01-28 15:23 | DRG 308 ==
LOC: ED 05:31 → SUATTDRO 09:26 → 1E 09:26

== ENCOUNTER 2023-02-11 13:59 | Inpatient (IN) ==
[2023-02-11] MEDS ORDERED: ONDANSETRON INJ 2 MG/ML 2 ML VIAL IV STA (16:02)
[2023-02-11] MEDS ORDERED: SODIUM CHLORIDE 0.9% 1000ML 500 ML IV ONE (16:02)
[2023-02-11] MEDS ORDERED: SODIUM CHLORIDE 0.9% 1000ML 1,000 ML IV SCH (16:15)
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
--- NOTE | 2023-02-11 16:59 | CT Scan Report ---
ABDOMEN AND PELVIS CT WITHOUT CONTRAST CT DOSE: 981.74 mGycm HISTORY: Acute nausea with vomiting vomiting TECHNIQUE: Multiaxial CT images of the abdomen and pelvis were performed without contrast. A dose lo wering technique was utilized adhering to the principles of ALARA. COMPARISON STUDY: 01/18/2023 FINDINGS: Prior median sternotomy. Cardiomegaly with coronary artery calcifications. Decreased attenu ation of the cardiac blood pool suggestive of anemia. There is improved aeration of the lung bases co mpared to the prior study. A few residual nodular foci remain measuring up to 7 mm within the inferio r segment lingula, previously 10 mm. Findings are suggestive of resolving infectious or inflammatory pneumonitis. The unenhanced spleen, mildly atrophic pancreas and right adrenal gland are unremarkable. 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 Mild margin al nodularity of the liver redemonstrated possibly loss prevention representative of early cirrhosis. No hepatic mass identified. Cortical thinning of the right greater than left kidneys with moderately atrophic right kidney. Mild nonspecific bilateral perinephric stranding cysts of the kidneys measure up to 7.5 cm and the left. H yperdense 1.4 cm lesion of the interpolar left kidney suggestive of a proteinaceous or hemorrhagic cy st. There are a few nonobstructing calculi of the left kidney measuring up to 3 mm. No ureteral calcu li or hydronephrosis. Urinary bladder wall thickening with partial distention. Mild prostamegaly. Sma ll fat filled inguinal hernias. Atherosclerosis of the aorta and branch vessels. No lymphadenopathy. There is no bowel obstruction. Mild wall thickening of the rectosigmoid. Normal appendix. Unremarkabl e soft tissues. Degenerative changes of the spine, pelvis and right hip. Left hip total joint arthrop lasty. IMPRESSION: 1. No bowel obstruction or pneumoperitoneum. 2. Mild wall thickening of the rectosigmoid is likely secondary to partial distention. A mild nonspec ific proctocolitis could appear similarly. 3. Suggested early cirrhotic changes of the liver again noted. 4. Asymmetric right renal atrophy. 5. Improved aeration of the lung bases compared to the 01/18/2023 exam suggestive of a resolving infec tious or inflammatory pneumonitis. ACT 112: Negative or not required by law. The above report was generated using voice recognition software. It may contain grammatical, syntax o r spelling errors. Electronically signed by: Aston Ryan M.D. 02/11/2023 4:58 PM
[2023-02-11 17:06] LABS: Basophils # (auto) 0.04 K/uL (0-0.2); Basophils % (auto) 0.7 %; Eosinophils # (auto) 0.02 K/uL (0-0.50); Eosinophils % (auto) 0.4 %; Hematocrit (blood only) 22.6 % (42.0-52.0); Immature Granulocytes # (auto) 0.03 K/uL (0.01-0.20); Immature Granulocytes % (auto) 0.5 %; Lymphocytes # (auto) 0.97 K/uL (1.2-3.4); Lymphocytes % (auto) 17.4 %; Mean Platelet Volume 12.5 fL (9.4-12.4); Monocytes # (auto) 0.52 K/uL (0.11-0.59); Monocytes % (auto) 9.3 %; Neutrophils # (auto) 4.01 K/uL (1.40-6.50); Neutrophils % (auto) 71.7 %; Platelet Count 114 K/uL (130-400); RDW Coefficient of Variation 19.1 % (11.5-14.5); RDW Standard Deviation 67.8 fL (36.4-46.3); Red Blood Count 2.26 M/uL (4.70-6.10); White Blood Count 5.59 K/ul (4.8-10.8)
[2023-02-11 17:33] LABS: Albumin Level 2.6 gm/dl (3.4-5.0); Bilirubin,Total 0.8 mg/dl (0.2-1.0); Calcium 8.5 mg/dl (8.6-10.3); Hypochromasia Present; Ovalocytes 1+; Polychromasia 1+; Potassium 3.4 mmol/L (3.5-5.1)
[2023-02-11] MEDS ORDERED: SODIUM CHLORIDE 0.9% 250 ML IV PRN (17:38)
[2023-02-11 17:39] LABS: BUN Creatinine Ratio 4.4 (10-20); Creatinine Clr Calc Pharmacy 21.9 ml/min; Est GFR (African American) 18.2 ml/min; Est GFR (Non-African American) 15.7 ml/min; Globulin 2.5 gm/dl (2.5-4.0); Total Protein 5.1 gm/dl (6.0-8.3)
[2023-02-11] MEDS ORDERED: PANTOPRAZOLE BOLUS/DRIP 1 EACH IV STA (17:47)
[2023-02-11] MEDS ORDERED: FAMOTIDINE 20MG IV PUSH 20 MG/5 ML SYR IV STA (17:47)
[2023-02-11] MEDS ORDERED: PANTOprazole 80 MG in DEXTROSE 5% 100 ML IV ONE (17:47)
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
[2023-02-11] MEDS ORDERED: STAT IV STA ×2 (18:44→20:39)
[2023-02-11] MEDS ORDERED: OCTREOTIDE ACETATE 50 MCG in SYRINGE 9.5 ML IV ONE (19:15)
[2023-02-11] MEDS ORDERED: ACETAMINOPHEN 325 MG TAB PO PRN (20:39)
[2023-02-11] MEDS ORDERED: DEXTROSE 50% 50 ML SYRINGE IV STA (21:01)
[2023-02-11] MEDS ORDERED: DEXTROSE 50% 50 ML SYRINGE IV ONE (21:02)
[2023-02-11] MEDS: cefTRIAXone SODIUM 2,000 MG in DEXTROSE 5% 50 ML IV SCH (21:24)
[2023-02-11] MEDS: PANTOprazole 40 MG in DEXTROSE 5% 100 ML IV SCH (21:24)
[2023-02-11] MEDS: OCTREOTIDE ACETATE 500 MCG in DEXTROSE 5% 100 ML IV SCH (21:55)
[2023-02-11] MEDS ORDERED: DEXTROSE 50% 50 ML SYRINGE IV PRN (22:04)
[2023-02-11] MEDS ORDERED: GLUCOSE 10 TAB/TUBE PO PRN (22:04)
[2023-02-11] MEDS ORDERED: GLUCAGON FOR INJ 1 MG VIAL SQ PRN (22:04)
[2023-02-11] MEDS ORDERED: CARBOHYDRATES FOR HYPOGLYCEMIA PO PRN (22:04)
[2023-02-11] MEDS ORDERED: GLUCOSE 40% GEL 15 GM TUBE PO PRN (22:04)
[2023-02-11] MEDS: VALSARTAN/SACUBITRIL 26/24MG TAB PO SCH (22:41)
[2023-02-11] MEDS: ATORVASTATIN 40 MG TAB PO SCH (22:41)
[2023-02-11] MEDS: AMIODARONE 200 MG TAB PO SCH (22:41)
[2023-02-11] MEDS: allopurinoL 300 MG TAB PO SCH (22:41)
[2023-02-11] MEDS: VENLAFAXINE HCL XR 75 MG CAPXR PO SCH (22:42)
[2023-02-11] MEDS: LORazepam 1 MG TAB PO PRN (23:44)
[2023-02-12] MEDS: PANTOprazole 40 MG in DEXTROSE 5% 100 ML IV SCH ×5 (01:54→21:29)
[2023-02-12 06:17] LABS: Basophils # (auto) 0.05 K/uL (0-0.2); Basophils % (auto) 0.9 %; Eosinophils # (auto) 0.03 K/uL (0-0.50); Eosinophils % (auto) 0.5 %; Hematocrit (blood only) 23.8 % (42.0-52.0); Hemoglobin 7.6 g/dl (14.0-18.0); Immature Granulocytes # (auto) 0.02 K/uL (0.01-0.20); Immature Granulocytes % (auto) 0.4 %; Lymphocytes # (auto) 0.91 K/uL (1.2-3.4); Lymphocytes % (auto) 15.9 %; Mean Corpuscular Hemoglobin 30.9 pg (25.0-34.0); Mean Corpuscular Hgb Conc 31.9 g/dL (32.0-36.0); Mean Corpuscular Volume 96.7 fL (80.0-100.0); Mean Platelet Volume 12.1 fL (9.4-12.4); Monocytes # (auto) 0.49 K/uL (0.11-0.59); Monocytes % (auto) 8.6 %; Neutrophils # (auto) 4.21 K/uL (1.40-6.50); Neutrophils % (auto) 73.7 %; Platelet Count 100 K/uL (130-400); RDW Coefficient of Variation 19.2 % (11.5-14.5); RDW Standard Deviation 67.1 fL (36.4-46.3); Red Blood Count 2.46 M/uL (4.70-6.10); White Blood Count 5.71 K/ul (4.8-10.8)
[2023-02-12 06:32] LABS: Calcium 8.2 mg/dl (8.6-10.3); Creatinine Clr Calc Pharmacy 18.7 ml/min; Est GFR (African American) 16.1 ml/min; Est GFR (Non-African American) 13.9 ml/min; Potassium 3.2 mmol/L (3.5-5.1)
[2023-02-12 06:51] LABS: Ovalocytes 1+; Polychromasia 1+; Tear Drop Cells 1+
[2023-02-12 07:11] LABS: INR 1.3 (0.9-1.1); Prothrombin Time 13.8 Seconds (9.0-12.0)
[2023-02-12] MEDS ORDERED: SODIUM CHLORIDE 0.9% 250 ML IV PRN (07:40)
--- NOTE | 2023-02-12 07:47 | Billing Data ---
Date of Service February 11, 2023 Coding Level of Care Code 37889 INT INP/OBS CARE
[2023-02-12] MEDS: VALSARTAN/SACUBITRIL 26/24MG TAB PO SCH ×2 (08:50→20:25)
[2023-02-12] MEDS: buPROPion SR 100 MG TABCR PO SCH (08:50)
[2023-02-12] MEDS ORDERED: SODIUM CHLORIDE 0.9% 1000ML 1,000 ML IV PRN (09:11)
[2023-02-12] MEDS ORDERED: EPOETIN ALFA 20,000 UNITS/ML VIAL IV ONE (09:16)
--- NOTE | 2023-02-12 09:40 | XRay Report ---
XR chest 1V portable HISTORY: GI bleed COMPARISON: Chest 01/20/2023. FINDINGS: No pneumothorax. No pleural effusions. No focal lung consolidations to suggest a pneumonia. No evidence for pulmonary edema. The cardiac silhouette is borderline enlarged. There are poststerno zeus changes and a right jugular catheter again noted. This terminates at the proximal SVC. There are low lung volumes. IMPRESSION: No acute process within the chest. ACT 112: Negative or not required by law. Electronically signed by: Juwan Mo M.D. 02/12/2023 9:39 AM
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
[2023-02-12] MEDS ORDERED: LIDOCAINE 2% MPF LOCAL 5 ML VIAL ONE (13:47)
[2023-02-12] MEDS ORDERED: PROPOFOL IV EMULSION 10 MG/ML 20 ML VIAL IV ONE (13:47)
[2023-02-12] MEDS ORDERED: ONDANSETRON INJ 2 MG/ML 2 ML VIAL ONE (13:48)
--- NOTE | 2023-02-12 13:50 | Anesthesiology Progress Note ---
Date of Service February 12, 2023 Anesthesia Post Procedure Vital Signs Vital Signs: Temp Pulse Pulse Resp BP BP BP 02/12/23 13:30 36.7 C 88 18 184/86 H 02/12/23 12:59 36 C L 85 16 170/72 H 02/12/23 12:30 36.5 C 86 16 174/69 H 02/12/23 12:00 36.6 C 80 16 167/74 H 02/12/23 11:45 36.5 C 84 16 160/73 H 02/12/23 11:45 36.5 C 84 16 160/73 H 02/12/23 11:29 36.6 C 83 16 158/74 H 02/12/23 08:00 82 02/12/23 08:00 02/12/23 11:13 36.6 C 83 16 158/74 H 02/12/23 10:47 36.6 C 82 14 167/79 H 02/12/23 09:47 36.7 C 83 16 160/79 H 02/12/23 09:17 36.7 C 81 16 156/82 H 02/12/23 09:02 36.6 C 82 16 167/67 H 02/12/23 08:46 36.6 C 82 16 162/70 H 02/12/23 08:36 36.6 C 84 16 162/70 H 02/12/23 07:45 36.7 C 80 19 177/68 H 02/12/23 04:00 36.8 C 81 20 129/65 02/12/23 01:58 81 18 157/73 H 02/12/23 01:39 36.6 C 84 18 145/93 H 02/11/23 20:28 02/12/23 00:39 36.7 C 81 18 118/64 02/11/23 23:39 36.6 C 81 18 124/68 02/11/23 23:09 36.6 C 80 18 125/75 02/11/23 22:54 36.6 C 82 18 134/57 L 02/11/23 22:31 36.5 C 82 18 161/76 H 02/11/23 20:28 36.5 C 86 18 153/74 H 02/11/23 19:42 80 02/11/23 19:56 84 18 158/79 H 02/11/23 17:05 77 18 134/64 04/20/23 15:20 77 02/11/23 15:15 02/11/23 14:10 36.6 C 73 18 150/72 H 02/11/23 14:10 36.6 C 73 18 150/72 H Pulse Ox O2 Del Method 02/12/23 13:30 100 02/12/23 12:59 95 Room Air 02/12/23 12:30 96 02/12/23 12:00 93 02/12/23 11:45 92 02/12/23 11:45 92 02/12/23 11:29 92 02/12/23 08:00 02/12/23 08:00 Room Air 02/12/23 11:13 92 02/12/23 10:47 92 02/12/23 09:47 91 02/12/23 09:17 92 02/12/23 09:02 92 02/12/23 08:46 91 02/12/23 08:36 91 Room Air 02/12/23 07:45 93 Room Air 02/12/23 04:00 92 Room Air 02/12/23 01:58 02/12/23 01:39 91 02/11/23 20:28 Room Air 02/12/23 00:39 91 02/11/23 23:39 92 02/11/23 23:09 94 02/11/23 22:54 96 02/11/23 22:31 92 02/11/23 20:28 95 Room Air 02/11/23 19:42 02/11/23 19:56 98 Room Air 02/11/23 17:05 97 Room Air 02/11/23 15:20 02/11/23 15:15 96 Room Air 02/11/23 14:10 93 Room Air 02/11/23 14:10 93 Room Air Transfer of Care Handoff Completed per policy Notes Mental Status: alert / awake / arousable and participated in evaluation Nausea / Vomiting: adequately controlled Pain: adequately controlled Airway Patency, RR, SpO2: stable & adequate BP & HR: stable & adequate Hydration State: stable & adequate Anesthetic Complications: no major complications apparent and Pt Satisfied with anesthetic care
--- NOTE | 2023-02-12 13:50 | GI REPORT ---
Patient Name: Edgar Holman Procedure Date: 02/12/2023 1:04 PM Date of : 1960 Admit Type: Inpatient Age: 62 Gender: Male Attending MD: Feroz Kathleen DO, Procedure: Upper GI endoscopy Providers: Feroz Kathleen DO Referring MD: Antonio Hdz Indications: Acute post hemorrhagic anemia Medicines: Monitored Anesthesia Care Complications: No immediate complications. Estimated Blood Loss: Estimated blood loss: none. Procedure: Pre-Anesthesia Assessment: - Prior to the procedure, a History and Physical was performed, and patient medications and allergies were reviewed. The patient's tolerance of previous anesthesia was also reviewed. The risks and benefits of the procedure and the sedation options and risks were discussed with the patient. All questions were answered, and informed consent was obtained. Prior Anticoagulants: The patient has taken no anticoagulant or antiplatelet agents. ASA Grade Assessment: III - A patient with severe systemic disease. After reviewing the risks and benefits, the patient was deemed in satisfactory condition to undergo the procedure. After obtaining informed consent, the endoscope was passed under direct vision. Throughout the procedure, the patient's blood pressure, pulse, and oxygen saturations were monitored continuously. The Endoscope was introduced through the mouth, and advanced to the second part of duodenum. The upper GI endoscopy was accomplished without difficulty. The patient tolerated the procedure well. Findings: The esophagus was normal. A small hiatal hernia was present. Localized mild inflammation characterized by erythema was found in the gastric antrum. The examined duodenum was normal. Impression: - Normal esophagus. - Small hiatal hernia. - Gastritis. - Normal examined duodenum. - No specimens collected. Recommendation: - [facility]. - Clear liquid diet. - Continue present medications. - Return to primary care physician as previously scheduled. Feroz Kathleen DO 02/12/2023 1:50:13 PM This report has been signed electronically. Note Initiated On: 02/12/2023 1:04 PM Number of Addenda: 0 I attest to the content of the Intraoperative Record and orders documented therein, exceptions below {[id number]}
--- NOTE | 2023-02-12 15:01 | Hospitalist Progress Note ---
Date of Service February 12, 2023 Assessment & Plan (1) Weakness: Plan: Due to anemia. Should improve with transfusion. Eventual OT and PT evaluations. Supportive care (2) Type II diabetes mellitus: Plan: Eventual return to ADA diet. Sliding scale coverage for now (3) Systolic heart failure: Plan: No overt exacerbation. Monitor intake and output. Continue current medical management (4) Hypertension: Plan: Stable. Continue current medical management (5) Hyperlipidemia: Plan: Stable. Continue statin therapy (6) GERD (gastroesophageal reflux disease): Plan: Currently on Protonix drip (7) ESRD (end stage renal disease): Plan: [facility] nephrology to manage hemodialysis requirements (8) CAD (coronary artery disease): Plan: Stable. Continue current medical management (9) Atrial fibrillation with RVR: Plan: Now stable. Continue current medical management. Avoid systemic anticoagulation due to GI bleeding. Eliquis is on hold (10) Acute upper gastrointestinal bleeding: Plan: Producing melena. Appreciate gastroenterology consultation and recommendations. Continue Protonix drip and octreotide drip for now. EGD is forthcoming (11) Symptomatic anemia: Plan: Hemoglobin 7.0 on admission which improved to 7.6 after 2 units packed red blood cells given in the ED. 2 more packed red blood cells today, February 12. Serial labs ordered. Plan Anticipate eventual discharge to home Admission and Anticipated Discharge Date Admission Date: February 11, 2023 Subjective Alert and oriented. He received 2 units packed red blood cells on admission and hemoglobin improved to 7.6. 2 more units have been ordered along with serial labs. EKG and chest x-ray revealed no change from baseline. Gastroenterology plans on EGD. He remains on a Protonix drip and octreotide drip. [facility] nephrology will handle the hemodialysis requirements. Review of Systems Review of Systems: Constitutional-no fever or chills ENT-no blurred vision, no double vision, no epistaxis, no sore throat Respiratory-no cough, no wheezing, no shortness of breath Cardiac-no palpitations, no chest pain, no syncope GI-no nausea, vomiting, diarrhea, hematochezia. He does report melena -no urinary retention, no urinary incontinence, no dysuria, no hematuria Musculoskeletal-no joint pain, no muscle tenderness Skin-no bruising, no rashes, no pruritus Neuro-no isolated weakness, no paresthesia, no weakness Psych-no depression, no anxiety Physical Exam Physical Exam: General-alert and oriented x3, no fevers, no chills HEENT-subcutaneous mid forehead hematoma from recent fall. Pupils equal and reactive to light, extraocular muscles intact Neck-no lymphadenopathy or thyromegaly, trachea midline Chest-clear to auscultation percussion. No rales, wheezing or rhonchi Cardiac-regular rate and rhythm, normal S1 and S2 Abdomen-normal bowel sounds, nontender, no hepatosplenomegaly Extremities-no cyanosis, clubbing, or edema Neuro-cranial nerves II through XII intact, motor and sensory function within normal limits, strength symmetrical , no focal deficits Psych-normal affect, normal mood Results & Data Results & Data Vital Signs (Past 12 Hours) Vital Signs Temp Pulse Pulse Resp BP BP BP 02/12/23 14:22 83 16 175/74 H 02/12/23 14:07 87 16 116/76 02/12/23 13:52 81 16 164/73 H 02/12/23 13:30 36.7 C 88 18 184/86 H 02/12/23 12:59 36 C L 85 16 170/72 H 02/12/23 12:30 36.5 C 86 16 174/69 H 02/12/23 12:00 36.6 C 80 16 167/74 H 02/12/23 11:45 36.5 C 84 16 160/73 H 02/12/23 11:45 36.5 C 84 16 160/73 H 02/12/23 11:29 36.6 C 83 16 158/74 H 02/12/23 08:00 82 02/12/23 08:00 02/12/23 11:13 36.6 C 83 16 158/74 H 02/12/23 10:47 36.6 C 82 14 167/79 H 02/12/23 09:47 36.7 C 83 16 160/79 H 02/12/23 09:17 36.7 C 81 16 156/82 H 02/12/23 09:02 36.6 C 82 16 167/67 H 02/12/23 08:46 36.6 C 82 16 162/70 H 02/12/23 08:36 36.6 C 84 16 162/70 H 02/12/23 07:45 36.7 C 80 19 177/68 H 02/12/23 04:00 36.8 C 81 20 129/65 Pulse Ox O2 Del Method 02/12/23 14:22 95 Room Air 02/12/23 14:07 95 Room Air 02/12/23 13:52 96 Room Air 02/12/23 13:30 100 02/12/23 12:59 95 Room Air 02/12/23 12:30 96 02/12/23 12:00 93 02/12/23 11:45 92 02/12/23 11:45 92 02/12/23 11:29 92 02/12/23 08:00 02/12/23 08:00 Room Air 02/12/23 11:13 92 02/12/23 10:47 92 02/12/23 09:47 91 02/12/23 09:17 92 02/12/23 09:02 92 02/12/23 08:46 91 02/12/23 08:36 91 Room Air 02/12/23 07:45 93 Room Air 02/12/23 04:00 92 Room Air Laboratory Results 02/12/23 05:58 02/12/23 05:58 PG Care Time/CCT Total # of Minutes Spent Total Time Spent with Patient: Total time spent is greater than 50% in coordination of care (as documented) at patient's floor/unit and/or counseling patient: Coding Level of Care Code 10788 SUB INP/OBS CARE 3/50MIN Diagnoses Weakness R53.1 Type II diabetes mellitus E11.9 Systolic heart failure I50.20 Hypertension I10 Hyperlipidemia E78.5 GERD (gastroesophageal reflux disease) K21.9 ESRD (end stage renal disease) N18.6 CAD (coronary artery disease) I25.10 Atrial fibrillation with RVR I48.91 Acute upper gastrointestinal bleeding K92.2 Symptomatic anemia D64.9
--- NOTE | 2023-02-12 15:32 | Communication Note ---
Date of Service: February 12, 2023 Patient's requesting call about EGD. I called and spoke with patient's Yvette. We reviewed the EGD results. will advance diet to clear liquids to see how he does.
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
[2023-02-12] MEDS: carvediloL 12.5 MG TAB PO SCH ×2 (17:58→18:47)
[2023-02-12] MEDS: AMIODARONE 200 MG TAB PO SCH ×2 (17:58→20:26)
--- NOTE | 2023-02-12 18:06 | Electrocardiogram Report ---
Test Reason : Blood Pressure : / mmHG Vent. Rate : 083 BPM Atrial Rate : 083 BPM P-R Int : 256 ms QRS Dur : 136 ms QT Int : 448 ms P-R-T Axes : 077 026 096 degrees QTc Int : 526 ms Sinus rhythm with 1st degree A-V block Non-specific intra-ventricular conduction block Abnormal ECG When compared with ECG of 21-JAN-2023 10:16, QRS duration has increased Nonspecific T wave abnormality has replaced inverted T waves in Lateral leads QT has lengthened Confirmed by Joaquín Ramirez ([id number]) on 02/12/2023 6:06:28 PM Referred By: [facility] Confirmed By:Rosendo Ramirez
[2023-02-12] MEDS: cefTRIAXone SODIUM 2,000 MG in DEXTROSE 5% 50 ML IV SCH (18:38)
[2023-02-12] MEDS: NSS + 20MEQ KCL 20 MEQ/1,000 ML BAG IV SCH (18:38)
[2023-02-12] MEDS: OCTREOTIDE ACETATE 500 MCG in DEXTROSE 5% 100 ML IV SCH (18:38)
--- NOTE | 2023-02-12 19:20 | Dialysis Progress Note ---
Date of Service February 12, 2023 Assessment & Plan (1) ESRD (end stage renal disease): Plan: seen on tx today > tolerating but restless. lying flat w/o issue; ultimately tolerated 2L UF despite coming off early >> cannot rule out need for additional tx on weekend given multiple transfusions (2) Acute on chronic anemia: Plan: Had 2 units packed red cells in the ER with improvement of hemoglobin from 7- >7.6. Slated to receive 2 more units packed red cells on February 12. Note that dialysis labs as OP show 01/29/23 hgb 10 w/ plts 145K and 02/05 hgb 9.2 (no plts checked). EGD not especially revealing for bleeding source >per primary service -no heparin in HD for now Admission and Anticipated Discharge Date Admission Date: February 11, 2023 Subjective Seen and evaluated on dialysis. Patient's feeling restless and anxious and asking to come off treatment an hour early; we bargained to have him come off only 30 minutes early. Denies shortness of breath, denies edema denies uncontrolled nausea at the time I saw him; EGD results reviewed Review of Systems Review of Systems: All systems reviewed & are unremarkable except as noted in Subjective Physical Exam Constitutional: well developed (Lying flat without respiratory distress), well nourished and + obese; no acute distress Eyes: EOM intact bilaterally ENMT: Ears: no external ear abnormality Nose: no external nose abnormality Mouth: + dry oral mucous membranes Neck: no nuchal rigidity Respiratory: normal respiratory effort Auscultation: + diminished lung sounds Cardiovascular: Rate/Rhythm: regular rate and regular rhythm Extremities: no edema Gastrointestinal (Abdomen): Inspection/Auscultation: normal bowel sounds Percussion/Palpation: abdomen soft; abdomen nontender Musculoskeletal: Extremities: strength 5/5 throughout Skin: no rashes, warm and dry Trauma: + contusion and + periorbital ecchymosis Results & Data Vital Signs (Past 12 Hours) Vital Signs Temp Pulse Pulse Pulse Resp BP BP 02/12/23 18:35 36.6 C 86 02/12/23 18:15 89 155/79 H 02/12/23 18:00 87 173/75 H 02/12/23 17:30 90 150/75 H 02/12/23 17:00 85 174/79 H 02/12/23 16:35 80 02/12/23 16:30 84 141/66 H 02/12/23 16:00 90 173/58 H 02/12/23 15:30 81 139/99 02/12/23 15:00 82 182/80 H 02/12/23 14:45 85 183/140 H 02/12/23 14:40 36.6 C 85 02/12/23 14:22 83 16 175/74 H 02/12/23 14:07 87 16 116/76 02/12/23 13:52 81 16 164/73 H 02/12/23 13:30 36.7 C 88 18 184/86 H 02/12/23 12:59 36 C L 85 16 170/72 H 02/12/23 12:30 36.5 C 86 16 174/69 H 02/12/23 12:00 36.6 C 80 16 167/74 H 02/12/23 11:45 36.5 C 84 16 160/73 H 02/12/23 11:45 36.5 C 84 16 160/73 H 02/12/23 11:29 36.6 C 83 16 158/74 H 02/12/23 08:00 82 02/12/23 08:00 02/12/23 11:13 36.6 C 83 16 158/74 H 02/12/23 10:47 36.6 C 82 14 167/79 H 02/12/23 09:47 36.7 C 83 16 160/79 H 02/12/23 09:17 36.7 C 81 16 156/82 H 02/12/23 09:02 36.6 C 82 16 167/67 H 02/12/23 08:46 36.6 C 82 16 162/70 H 02/12/23 08:36 36.6 C 84 16 162/70 H 02/12/23 07:45 36.7 C 80 19 BP Pulse Ox O2 Del Method 02/12/23 18:35 181/79 H 02/12/23 18:15 02/12/23 18:00 02/12/23 17:30 02/12/23 17:00 02/12/23 16:35 02/12/23 16:30 02/12/23 16:00 02/12/23 15:30 02/12/23 15:00 02/12/23 14:45 02/12/23 14:40 02/12/23 14:22 95 Room Air 02/12/23 14:07 95 Room Air 02/12/23 13:52 96 Room Air 02/12/23 13:30 100 02/12/23 12:59 95 Room Air 02/12/23 12:30 96 02/12/23 12:00 93 02/12/23 11:45 92 02/12/23 11:45 92 02/12/23 11:29 92 02/12/23 08:00 02/12/23 08:00 Room Air 02/12/23 11:13 92 02/12/23 10:47 92 02/12/23 09:47 91 02/12/23 09:17 92 02/12/23 09:02 92 02/12/23 08:46 91 02/12/23 08:36 91 Room Air 02/12/23 07:45 177/68 H 93 Room Air Laboratory Results 02/12/23 05:58 02/12/23 05:[address] abdomen pelvis and chest x-ray reviewed
[2023-02-12 20:05] LABS: Hematocrit (blood only) 30.1 % (42.0-52.0); Hemoglobin 9.9 g/dl (14.0-18.0)
[2023-02-12] MEDS: allopurinoL 300 MG TAB PO SCH (20:25)
[2023-02-12] MEDS: VENLAFAXINE HCL XR 75 MG CAPXR PO SCH (20:25)
[2023-02-12] MEDS: ATORVASTATIN 40 MG TAB PO SCH (20:25)
[2023-02-12] MEDS: LORazepam 1 MG TAB PO PRN (21:34)
[2023-02-13] MEDS: PANTOprazole 40 MG in DEXTROSE 5% 100 ML IV SCH ×3 (02:28→11:21)
[2023-02-13] MEDS: OCTREOTIDE ACETATE 500 MCG in DEXTROSE 5% 100 ML IV SCH ×2 (03:15→11:13)
[2023-02-13] MEDS: NSS + 20MEQ KCL 20 MEQ/1,000 ML BAG IV SCH ×2 (05:57→10:31)
[2023-02-13 06:19] LABS: Basophils # (auto) 0.05 K/uL (0-0.2); Eosinophils # (auto) 0.01 K/uL (0-0.50); Eosinophils % (auto) 0.2 %; Hematocrit (blood only) 27.7 % (42.0-52.0); Immature Granulocytes # (auto) 0.02 K/uL (0.01-0.20); Immature Granulocytes % (auto) 0.4 %; Lymphocytes # (auto) 0.77 K/uL (1.2-3.4); Mean Corpuscular Hemoglobin 29.8 pg (25.0-34.0); Mean Corpuscular Hgb Conc 32.5 g/dL (32.0-36.0); Mean Corpuscular Volume 91.7 fL (80.0-100.0); Mean Platelet Volume 12.3 fL (9.4-12.4); Monocytes # (auto) 0.53 K/uL (0.11-0.59); Monocytes % (auto) 10.3 %; Neutrophils # (auto) 3.75 K/uL (1.40-6.50); Neutrophils % (auto) 73.1 %; Platelet Count 81 K/uL (130-400); RDW Coefficient of Variation 19.9 % (11.5-14.5); RDW Standard Deviation 65.3 fL (36.4-46.3); Red Blood Count 3.02 M/uL (4.70-6.10); White Blood Count 5.13 K/ul (4.8-10.8)
[2023-02-13 06:39] LABS: BUN Creatinine Ratio 2.8 (10-20); Calcium 7.8 mg/dl (8.6-10.3); Creatinine Clr Calc Pharmacy 28.8 ml/min; Est GFR (African American) 25.6 ml/min; Est GFR (Non-African American) 22.1 ml/min; Potassium 3.5 mmol/L (3.5-5.1)
[2023-02-13] MEDS ORDERED: IRON SUCROSE 100 MG in SYRINGE 0 ML IV ONE (07:00)
[2023-02-13] MEDS ORDERED: SODIUM CHLORIDE 0.9% 1000ML 1,000 ML IV PRN (07:00)
[2023-02-13] MEDS ORDERED: EPOETIN ALFA 20,000 UNITS/ML VIAL IV SCH (07:00)
[2023-02-13] MEDS: VALSARTAN/SACUBITRIL 26/24MG TAB PO SCH ×2 (09:06→20:32)
[2023-02-13] MEDS: AMIODARONE 200 MG TAB PO SCH ×2 (09:06→20:31)
[2023-02-13] MEDS: buPROPion SR 100 MG TABCR PO SCH (09:06)
--- NOTE | 2023-02-13 11:08 | Nephrology Progress Note ---
Date of Service February 13, 2023 Assessment & Plan (1) ESRD (end stage renal disease): Plan: Patient had dialysis yesterday. He has received some blood transfusion but no respiratory distress. -Stop IV fluids (2) Acute on chronic anemia: Plan: Had 2 units packed red cells in the ER with improvement of hemoglobin from 7- >7.6. Slated to receive 2 more units packed red cells on February 12. Note that dialysis labs as OP show 01/29/23 hgb 10 w/ plts 145K and 02/05 hgb 9.2 (no plts checked). EGD not especially revealing for bleeding source >per primary service -no heparin in HD for now Admission and Anticipated Discharge Date Admission Date: February 11, 2023 Subjective Seen for ESRD. No shortness of breath. Patient is receiving IV fluids at 8 mm/h. He had dialysis yesterday. Review of Systems Review of Systems: All other systems were reviewed and negative except as noted in HPI Physical Exam Physical Exam: General exam: Appears comfortable, no acute distress HEENT: Pupils are equal and reactive to light Neck: No JVD, neck is supple trachea is midline Respiratory system: Clear breath sounds bilaterally. Gastrointestinal: Abdomen is soft, non distended, non tender, bowel sounds are present CVS: Regular rate and rhythm. No murmurs, rubs or gallops Musculoskeletal: No joint or muscle tenderness Extremities: Non tender, no edema, peripheral pulses are present Neuro: Oriented, no tremors, no focal neurological deficits Skin: No rashes Results & Data Vital Signs (Past 12 Hours) Vital Signs Temp Pulse Pulse Resp BP Pulse Ox O2 Del Method 02/13/23 08:00 Room Air 02/13/23 07:22 36.6 C 83 18 125/60 92 Room Air 02/13/23 03:29 36.8 C 81 18 137/72 91 Room Air 02/13/23 00:00 80 Laboratory Results 02/13/23 05:53 02/13/23 05:53 WBC 5.13 RBC 3.02 L MCV 91.7 D MCH 29.8 MCHC 32.5 RDW Std Deviation 65.3 H RDW Coeff of Masoud 19.9 H Plt Count 81 L MPV 12.3
[2023-02-13] MEDS ORDERED: Nursing to Pharmacy Communication SCH (11:30)
[2023-02-13] MEDS: ONDANSETRON INJ 2 MG/ML 2 ML VIAL IV PRN (14:54)
--- NOTE | 2023-02-13 14:56 | Hospitalist Progress Note ---
Date of Service February 13, 2023 Assessment & Plan (1) Weakness: Plan: Due to anemia. Improved after transfusion. OT and PT evaluations. Supportive care (2) Type II diabetes mellitus: Plan: Resumed ADA diet. Sliding scale coverage for now (3) Systolic heart failure: Plan: No overt exacerbation. Monitor intake and output. Continue current medical management (4) Hypertension: Plan: Stable. Continue current medical management (5) Hyperlipidemia: Plan: Stable. Continue statin therapy (6) GERD (gastroesophageal reflux disease): Plan: Protonix drip switched to oral dosing. (7) ESRD (end stage renal disease): Plan: [facility] nephrology to manage hemodialysis requirements (8) CAD (coronary artery disease): Plan: Stable. Continue current medical management (9) Atrial fibrillation with RVR: Plan: Now stable. Continue current medical management. Avoid systemic anticoagulation due to GI bleeding. Eliquis is on hold and will remain on hold for at least 1 week post discharge (10) Acute upper gastrointestinal bleeding: Plan: Producing melena. Appreciate gastroenterology consultation and recommendations. EGD negative for any signs of active bleeding. Protonix drip and octreotide drip have been discontinued. He is now on oral Protonix. (11) Symptomatic anemia: Plan: Hemoglobin now 9.0 after a total of 4 units packed red blood cells. We will follow Plan Anticipate eventual discharge back to Center care on Wednesday Admission and Anticipated Discharge Date Admission Date: February 11, 2023 Subjective Alert and oriented. No complaints. Hemoglobin improved to 9.0. He received a total of 4 units packed red blood cells this admission. GI consultation appreciated. EGD was negative. He is off the Protonix drip and octreotide drip. Continue oral Protonix. Eliquis remains on hold and probably should be on hold at the time of discharge for at least 1 week. Rocephin has been discontinued. All cultures are negative. Anticipate return to Center care on Wednesday if stable Review of Systems Review of Systems: Constitutional-no fever or chills ENT-no blurred vision, no double vision, no epistaxis, no sore throat Respiratory-no cough, no wheezing, no shortness of breath Cardiac-no palpitations, no chest pain, no syncope GI-no nausea, vomiting, diarrhea, hematochezia. He does report melena -no urinary retention, no urinary incontinence, no dysuria, no hematuria Musculoskeletal-no joint pain, no muscle tenderness Skin-no bruising, no rashes, no pruritus Neuro-no isolated weakness, no paresthesia, no weakness Psych-no depression, no anxiety Physical Exam Physical Exam: General-alert and oriented x3, no fevers, no chills HEENT-subcutaneous mid forehead hematoma from recent fall. Pupils equal and reactive to light, extraocular muscles intact Neck-no lymphadenopathy or thyromegaly, trachea midline Chest-clear to auscultation percussion. No rales, wheezing or rhonchi Cardiac-regular rate and rhythm, normal S1 and S2 Abdomen-normal bowel sounds, nontender, no hepatosplenomegaly Extremities-no cyanosis, clubbing, or edema Neuro-cranial nerves II through XII intact, motor and sensory function within normal limits, strength symmetrical , no focal deficits Psych-normal affect, normal mood Results & Data Results & Data Vital Signs (Past 12 Hours) Vital Signs Temp Pulse Resp BP Pulse Ox O2 Del Method 02/13/23 12:37 36.6 C 83 18 146/89 H 93 Room Air 02/13/23 08:00 Room Air 02/13/23 07:22 36.6 C 83 18 125/60 92 Room Air 02/13/23 03:29 36.8 C 81 18 137/72 91 Room Air Laboratory Results 02/13/23 05:53 02/13/23 05:53 PG Care Time/CCT Total # of Minutes Spent Total Time Spent with Patient: Total time spent is greater than 50% in coordination of care (as documented) at patient's floor/unit and/or counseling patient: Coding Level of Care Code 48394 SUB INP/OBS CARE 3/50MIN Diagnoses Weakness R53.1 Type II diabetes mellitus E11.9 Systolic heart failure I50.20 Hypertension I10 Hyperlipidemia E78.5 GERD (gastroesophageal reflux disease) K21.9 ESRD (end stage renal disease) N18.6 CAD (coronary artery disease) I25.10 Atrial fibrillation with RVR I48.91 Acute upper gastrointestinal bleeding K92.2 Symptomatic anemia D64.9
[2023-02-13] MEDS: carvediloL 12.5 MG TAB PO SCH ×2 (16:48→17:47)
[2023-02-13] MEDS: VENLAFAXINE HCL XR 75 MG CAPXR PO SCH (20:32)
[2023-02-13] MEDS: PANTOprazole 40 MG TAB PO SCH (20:32)
[2023-02-13] MEDS: allopurinoL 300 MG TAB PO SCH (20:33)
[2023-02-13] MEDS: ATORVASTATIN 40 MG TAB PO SCH (20:33)
[2023-02-13] MEDS: LORazepam 1 MG TAB PO PRN (23:24)
[2023-02-14 05:21] LABS: Basophils # (auto) 0.08 K/uL (0-0.2); Basophils % (auto) 0.9 %; Eosinophils # (auto) 0.07 K/uL (0-0.50); Eosinophils % (auto) 0.8 %; Hemoglobin 9.5 g/dl (14.0-18.0); Immature Granulocytes # (auto) 0.04 K/uL (0.01-0.20); Immature Granulocytes % (auto) 0.5 %; Lymphocytes # (auto) 0.97 K/uL (1.2-3.4); Lymphocytes % (auto) 11.2 %; Mean Corpuscular Hemoglobin 29.5 pg (25.0-34.0); Mean Corpuscular Hgb Conc 31.7 g/dL (32.0-36.0); Mean Corpuscular Volume 93.2 fL (80.0-100.0); Mean Platelet Volume 12.3 fL (9.4-12.4); Monocytes # (auto) 0.79 K/uL (0.11-0.59); Monocytes % (auto) 9.2 %; Neutrophils # (auto) 6.68 K/uL (1.40-6.50); Neutrophils % (auto) 77.4 %; Platelet Count 110 K/uL (130-400); RDW Coefficient of Variation 19.9 % (11.5-14.5); RDW Standard Deviation 66.4 fL (36.4-46.3); Red Blood Count 3.22 M/uL (4.70-6.10); White Blood Count 8.63 K/ul (4.8-10.8)
[2023-02-14 05:25] LABS: BUN Creatinine Ratio 2.6 (10-20); Calcium 8.5 mg/dl (8.6-10.3); Est GFR (African American) 16.5 ml/min; Est GFR (Non-African American) 14.2 ml/min; Potassium 3.2 mmol/L (3.5-5.1)
[2023-02-14] MEDS ORDERED: POTASSIUM CHLORIDE CRTAB 20 MEQ TABCR PO STA (08:25)
[2023-02-14] MEDS: AMIODARONE 200 MG TAB PO SCH ×2 (08:36→21:16)
[2023-02-14] MEDS: buPROPion SR 100 MG TABCR PO SCH (08:36)
[2023-02-14] MEDS: PANTOprazole 40 MG TAB PO SCH ×2 (08:47→21:17)
[2023-02-14] MEDS: VALSARTAN/SACUBITRIL 26/24MG TAB PO SCH ×2 (08:47→21:16)
[2023-02-14] MEDS ORDERED: SODIUM CHLORIDE 0.9% 1000ML 1,000 ML IV PRN (08:54)
[2023-02-14] MEDS: ONDANSETRON INJ 2 MG/ML 2 ML VIAL IV PRN (09:25)
--- NOTE | 2023-02-14 09:38 | XRay Report ---
XR chest 2V PA/lateral HISTORY: 62 years-old Male requiring Oxygen acute hypoxia COMPARISON: 02/12/2023 TECHNIQUE: PA and lateral views of the chest FINDINGS: Cardiac silhouette is enlarged. Prior median sternotomy. Right IJ dual-lumen hemodialysis catheter ap pears to be unchanged positioning. No pneumothorax. Interstitial pulmonary edema is new from prior. S mall pleural effusions with mild bibasilar atelectasis. Bones appear grossly intact. Surgical clips o f the upper abdomen. IMPRESSION: 1. Cardiomegaly with interval development of pulmonary edema. 2. Small pleural effusions with mild bibasilar atelectasis. 3. Unchanged positioning of the right IJ dual-lumen hemodialysis catheter. ACT 112: Negative or not required by law. The above report was generated using voice recognition software. It may contain grammatical, syntax o r spelling errors. Electronically signed by: Aston Ryan M.D. 02/14/2023 9:36 AM
--- NOTE | 2023-02-14 11:03 | Nephrology Progress Note ---
Date of Service February 14, 2023 Assessment & Plan (1) ESRD (end stage renal disease): Plan: Patient had dialysis Wednesday but became hypoxic this morning and we decided to do urgent HD today. We will do 3hrs and target UF 3litres -Stop IV fluids (2) Acute on chronic anemia: Plan: Had 2 units packed red cells in the ER with improvement of hemoglobin from 7- >7.6. Slated to receive 2 more units packed red cells on February 12. Note that dialysis labs as OP show 01/29/23 hgb 10 w/ plts 145K and 02/05 hgb 9.2 (no plts checked). EGD not especially revealing for bleeding source >per primary service -no heparin in HD for now Admission and Anticipated Discharge Date Admission Date: February 11, 2023 Subjective Patient seen and examined on dialysis. Has SOB today. Review of Systems Review of Systems: All other systems were reviewed and negative except as noted in HPI Physical Exam Physical Exam: General exam: Appears comfortable, no acute distress HEENT: Pupils are equal and reactive to light Neck: No JVD, neck is supple trachea is midline Respiratory system: Clear breath sounds bilaterally. Gastrointestinal: Abdomen is soft, non distended, non tender, bowel sounds are present CVS: Regular rate and rhythm. No murmurs, rubs or gallops Musculoskeletal: No joint or muscle tenderness Extremities: Non tender, no edema, peripheral pulses are present Neuro: Oriented, no tremors, no focal neurological deficits Skin: No rashes Results & Data Vital Signs (Past 12 Hours) Vital Signs Temp Pulse Pulse Pulse Resp BP BP 02/14/23 07:30 02/14/23 08:28 02/14/23 07:19 36.7 C 96 H 18 154/88 H 02/14/23 00:00 87 02/14/23 03:38 36.8 C 93 H 18 158/76 H 02/13/23 23:17 37.0 C 88 18 166/90 H Pulse Ox O2 Del Method O2 Flow Rate 02/14/23 07:30 Nasal Cannula 2 02/14/23 08:28 91 Nasal Cannula 1 02/14/23 07:19 90 Nasal Cannula 4 02/14/23 00:00 02/14/23 03:38 90 Room Air 02/13/23 23:17 92 Room Air Laboratory Results 02/14/23 04:57 02/14/23 04:57 WBC 8.63 RBC 3.22 L MCV 93.2 MCH 29.5 MCHC 31.7 L RDW Std Deviation 66.4 H RDW Coeff of Masoud 19.9 H Plt Count 110 L MPV 12.3
[2023-02-14] MEDS: carvediloL 12.5 MG TAB PO SCH ×2 (13:39→17:16)
[2023-02-14] MEDS: allopurinoL 300 MG TAB PO SCH (21:16)
[2023-02-14] MEDS: VENLAFAXINE HCL XR 75 MG CAPXR PO SCH (21:17)
[2023-02-14] MEDS: ATORVASTATIN 40 MG TAB PO SCH (21:17)
--- NOTE | 2023-02-14 21:22 | Hospitalist Progress Note ---
Date of Service February 14, 2023 Assessment & Plan (1) Weakness: Plan: Due to anemia. Improved after transfusion. OT and PT evaluations. Supportive care Patient though has poor nutrition and had been declining at the rehab. Likely due to the anemia. is concerned about his nutrition status however. Due to hypoxia, patient required an urgent session of dialysis (2) Type II diabetes mellitus: Plan: Resumed ADA diet. Sliding scale coverage for now (3) Systolic heart failure: Plan: No overt exacerbation. Monitor intake and output. Continue current medical management (4) Hypertension: Plan: Stable. Continue current medical management (5) Hyperlipidemia: Plan: Stable. Continue statin therapy (6) GERD (gastroesophageal reflux disease): Plan: Protonix drip switched to oral dosing. (7) ESRD (end stage renal disease): Plan: [facility] nephrology to manage hemodialysis requirements (8) CAD (coronary artery disease): Plan: Stable. Continue current medical management (9) Atrial fibrillation with RVR: Plan: Now stable. Continue current medical management. Avoid systemic anticoagulation due to GI bleeding. Eliquis is on hold and will remain on hold for at least 1 week post discharge (10) Acute upper gastrointestinal bleeding: Plan: Producing melena. Appreciate gastroenterology consultation and recommendations. EGD negative for any signs of active bleeding. Protonix drip and octreotide drip have been discontinued. He is now on oral Protonix. (11) Symptomatic anemia: Plan: Hemoglobin now 9.0 after a total of 4 units packed red blood cells. We will follow Plan Anticipate eventual discharge [facility] to [facility] on [facility] Admission and Anticipated Discharge Date Admission Date: February 11, 2023 Subjective Patient appears to no longer have much nausea. However, his reports his appetite is poor, and he has lost much weight over the past few months. Review of Systems Review of Systems: All systems reviewed & are unremarkable except as noted in HPI & below Physical Exam Physical Exam: General-alert and oriented x3, no fevers, no chills HEENT-subcutaneous mid forehead hematoma from recent fall. Pupils equal and reactive to light, extraocular muscles intact Neck-no lymphadenopathy or thyromegaly, trachea midline Chest-clear to auscultation percussion. No rales, wheezing or rhonchi Cardiac-regular rate and rhythm, normal S1 and S2 Abdomen-normal bowel sounds, nontender, no hepatosplenomegaly Extremities-no cyanosis, clubbing, or edema Neuro-cranial nerves II through XII intact, motor and sensory function within normal limits, strength symmetrical , no focal deficits Psych-normal affect, normal mood Results & Data Results & Data Vital Signs (Past 12 Hours) Vital Signs Temp Pulse Pulse Resp BP BP BP 02/14/23 19:30 36.7 C 85 16 149/84 H 02/14/23 16:12 36.5 C 91 H 18 115/66 02/14/23 15:22 96 H 02/14/23 13:15 36.6 C 91 H 164/89 H 02/14/23 13:00 100 H 152/79 H 02/14/23 12:30 98 H 128/99 02/14/23 12:00 68 195/101 H 02/14/23 11:30 97 H 169/103 H 02/14/23 11:00 82 164/89 H 02/14/23 10:30 99 H 178/104 H 02/14/23 10:15 91 H 179/101 H 02/14/23 10:00 36.5 C 90 Pulse Ox O2 Del Method 02/14/23 19:30 94 Room Air 02/14/23 16:12 92 Room Air 02/14/23 15:22 02/14/23 13:15 02/14/23 13:00 02/14/23 12:30 02/14/23 12:00 02/14/23 11:30 02/14/23 11:00 02/14/23 10:30 02/14/23 10:15 02/14/23 10:00 PG Care Time/CCT Total # of Minutes Spent Total Time Spent with Patient: Total time spent is greater than 50% in coordination of care (as documented) at patient's floor/unit and/or counseling patient: Coding Level of Care Code 64444 SUB INP/OBS CARE 3/50MIN Diagnoses Weakness R53.1 Type II diabetes mellitus E11.9 Systolic heart failure I50.20 Hypertension I10 Hyperlipidemia E78.5 GERD (gastroesophageal reflux disease) K21.9 ESRD (end stage renal disease) N18.6 CAD (coronary artery disease) I25.10 Atrial fibrillation with RVR I48.91 Acute upper gastrointestinal bleeding K92.2 Symptomatic anemia D64.9 Time Spent (min) 50
[2023-02-15 06:53] LABS: Hematocrit (blood only) 32.1 % (42.0-52.0); Hemoglobin 10.1 g/dl (14.0-18.0); Mean Corpuscular Hemoglobin 30.2 pg (25.0-34.0); Mean Corpuscular Hgb Conc 31.5 g/dL (32.0-36.0); Mean Corpuscular Volume 96.1 fL (80.0-100.0); Mean Platelet Volume 12.1 fL (9.4-12.4); Nucleated RBC # (auto) 0.02 K/uL (0-0.12); Nucleated RBC % (auto) 0.2 %; Platelet Count 111 K/uL (130-400); RDW Coefficient of Variation 20.2 % (11.5-14.5); RDW Standard Deviation 69.9 fL (36.4-46.3); Red Blood Count 3.34 M/uL (4.70-6.10); White Blood Count 9.77 K/ul (4.8-10.8)
[2023-02-15 07:12] LABS: Albumin Level 2.6 gm/dl (3.4-5.0); BUN Creatinine Ratio 2.2 (10-20); Bilirubin Direct 0.3 mg/dl (0-0.2); Bilirubin,Total 0.9 mg/dl (0.2-1.0); Calcium 8.8 mg/dl (8.6-10.3); Est GFR (African American) 19.3 ml/min; Est GFR (Non-African American) 16.7 ml/min; Potassium 3.7 mmol/L (3.5-5.1)
[2023-02-15] MEDS: buPROPion SR 100 MG TABCR PO SCH (08:14)
[2023-02-15] MEDS: VALSARTAN/SACUBITRIL 26/24MG TAB PO SCH ×2 (08:14→20:21)
[2023-02-15] MEDS: AMIODARONE 200 MG TAB PO SCH ×2 (08:15→20:19)
[2023-02-15] MEDS: PANTOprazole 40 MG TAB PO SCH ×2 (08:15→20:20)
[2023-02-15] MEDS: ONDANSETRON INJ 2 MG/ML 2 ML VIAL IV PRN (08:26)
--- NOTE | 2023-02-15 09:59 | Dialysis Progress Note ---
Date of Service February 15, 2023 Assessment & Plan Admission and Anticipated Discharge Date Admission Date: February 11, 2023 Subjective Assessment & Plan (1) ESRD (end stage renal disease): Plan: Seen on tx today. Tolerating but restless.lying flat w/o issue. Planning to take 3.3 kilo tomorrow. (2) Acute on chronic anemia: Plan: Had 2 units packed red cells in the ER with improvement of hemoglobin from 7- >7.6. Slated to receive 2 more units packed red cells on February 12. per primary service no heparin in HD for today but will start giving from next session Subjective Seen and evaluated during dialysis.Denies any issues. Feels cofortable. CVC fine. BP fine. Denies shortness of breath, denies edema denies uncontrolled nausea at the time I saw him. Review of Systems Review of Systems: All systems reviewed & are unremarkable except as noted in Subjective Physical Exam Constitutional: well developed (Lying flat without respiratory distress), well nourished and + obese; no acute distress Eyes: EOM intact bilaterally ENMT: Ears: no external ear abnormality Nose: no external nose abnormality Mouth: + dry oral mucous membranes Neck: no nuchal rigidity Respiratory: normal respiratory effort Auscultation: + diminished lung sounds Cardiovascular: Rate/Rhythm: regular rate and regular rhythm Extremities: no edema Gastrointestinal (Abdomen): Inspection/Auscultation: normal bowel sounds Percussion/Palpation: abdomen soft; abdomen nontender Musculoskeletal: Extremities: strength 5/5 throughout Skin: no rashes, warm and dry Trauma: + contusion and + periorbital ecchymosis Results & Data Vital Signs (Past 12 Hours) Vital Signs Temp Pulse Pulse Pulse Resp BP BP 02/15/23 08:15 98 H 02/15/23 08:15 02/15/23 07:47 36.6 C 66 20 146/77 H 02/15/23 03:45 91 H 02/15/23 00:00 93 H 02/15/23 03:35 36.5 C 94 H 17 136/74 02/14/23 22:35 94 H 02/14/23 22:40 36.9 C 94 H 19 162/80 H Pulse Ox Pulse Ox O2 Del Method O2 Del Method 02/15/23 08:15 02/15/23 08:15 Room Air 04/24/23 07:47 93 Room Air 02/15/23 03:45 90 Room Air 02/15/23 00:00 02/15/23 03:35 94 Room Air 02/14/23 22:35 90 Room Air 02/14/23 22:40 93 Room Air
[2023-02-15] MEDS: carvediloL 12.5 MG TAB PO SCH ×2 (12:45→18:03)
[2023-02-15] MEDS: allopurinoL 300 MG TAB PO SCH (20:20)
[2023-02-15] MEDS: VENLAFAXINE HCL XR 75 MG CAPXR PO SCH (20:20)
[2023-02-15] MEDS: ATORVASTATIN 40 MG TAB PO SCH (20:22)
--- NOTE | 2023-02-15 21:49 | Hospitalist Progress Note ---
Date of Service February 15, 2023 Assessment & Plan (1) Weakness: Plan: Due to anemia. Improved after transfusion. OT and PT evaluations. Supportive care Patient though has poor nutrition and had been declining at the rehab. Likely due to the anemia. is concerned about his nutrition status however. Diet advanced on 02/15, appears to be tolerating this. Patient tolerated dialysis, will consult PT and OT. Patient likely will need a higher level of care at discharge given his multiple comorbidities. Due to hypoxia, patient required an urgent session of dialysis (2) Type II diabetes mellitus: Plan: Resumed ADA diet. Sliding scale coverage for now (3) Systolic heart failure: Plan: No overt exacerbation. Monitor intake and output. Continue current medical management (4) Hypertension: Plan: Stable. Continue current medical management (5) Hyperlipidemia: Plan: Stable. Continue statin therapy (6) GERD (gastroesophageal reflux disease): Plan: Protonix drip switched to oral dosing. (7) ESRD (end stage renal disease): Plan: [facility] nephrology to manage hemodialysis requirements (8) CAD (coronary artery disease): Plan: Stable. Continue current medical management (9) Atrial fibrillation with RVR: Plan: Now stable. Continue current medical management. Avoid systemic anticoagulation due to GI bleeding. Eliquis is on hold and will remain on hold for at least 1 week post discharge (10) Acute upper gastrointestinal bleeding: Plan: Producing melena. Appreciate gastroenterology consultation and recommendations. EGD negative for any signs of active bleeding. Protonix drip and octreotide drip have been discontinued. He is now on oral Protonix. (11) Symptomatic anemia: Plan: Hemoglobin now 9.0 after a total of 4 units packed red blood cells. Hemoglbin appears table. Admission and Anticipated Discharge Date Admission Date: February 11, 2023 Subjective Patient reports he did cough up and had a couple of small episodes of emsis, but it was only clear fluid and it did not contain food particles. Patient's diet has been advanced and states he is tolerating it. Review of Systems Review of Systems: All systems reviewed & are unremarkable except as noted in HPI & below Physical Exam Physical Exam: General-alert and oriented x3, no fevers, no chills HEENT-subcutaneous mid forehead hematoma from recent fall. Pupils equal and reactive to light, extraocular muscles intact Neck-no lymphadenopathy or thyromegaly, trachea midline Chest-clear to auscultation percussion. No rales, wheezing or rhonchi Cardiac-regular rate and rhythm, normal S1 and S2 Abdomen-normal bowel sounds, nontender, no hepatosplenomegaly Extremities-no cyanosis, clubbing, or edema Neuro-cranial nerves II through XII intact, motor and sensory function within normal limits, strength symmetrical , no focal deficits Psych-normal affect, normal mood Results & Data Results & Data Vital Signs (Past 12 Hours) Vital Signs Temp Pulse Pulse Pulse Resp BP BP 02/15/23 20:00 02/15/23 19:27 36.9 C 89 22 147/82 H 02/15/23 16:11 36.5 C 95 H 20 138/80 02/15/23 15:29 93 H 02/15/23 12:17 36.8 C 93 H 02/15/23 12:00 97 H 142/81 H 02/15/23 12:37 36.4 C L 95 H 16 02/15/23 11:30 99 H 160/87 H 02/15/23 11:00 85 142/111 H 02/15/23 10:30 98 H 175/90 H 02/15/23 10:00 98 H 173/93 H BP Pulse Ox O2 Del Method 02/15/23 20:00 Room Air 02/15/23 19:27 96 Room Air 02/15/23 16:11 96 Room Air 02/15/23 15:29 02/15/23 12:17 159/88 H 02/15/23 12:00 02/15/23 12:37 146/83 H 94 Room Air 02/15/23 11:30 02/15/23 11:00 02/15/23 10:30 02/15/23 10:00 PG Care Time/CCT Total # of Minutes Spent Total Time Spent with Patient: Total time spent is greater than 50% in coordination of care (as documented) at patient's floor/unit and/or counseling patient: Coding Level of Care Code 57560 SUB INP/OBS CARE 2/35MIN Diagnoses Weakness R53.1 Type II diabetes mellitus E11.9 Systolic heart failure I50.20 Hypertension I10 Hyperlipidemia E78.5 GERD (gastroesophageal reflux disease) K21.9 ESRD (end stage renal disease) N18.6 CAD (coronary artery disease) I25.10 Atrial fibrillation with RVR I48.91 Acute upper gastrointestinal bleeding K92.2 Symptomatic anemia D64.9
[2023-02-15] MEDS: LORazepam 1 MG TAB PO PRN (22:43)
[2023-02-16] MEDS: AMIODARONE 200 MG TAB PO SCH ×2 (08:40→20:55)
[2023-02-16] MEDS: carvediloL 12.5 MG TAB PO SCH ×2 (08:40→17:23)
[2023-02-16] MEDS: buPROPion SR 100 MG TABCR PO SCH (08:41)
[2023-02-16] MEDS: VALSARTAN/SACUBITRIL 26/24MG TAB PO SCH ×2 (08:42→20:55)
[2023-02-16] MEDS: PANTOprazole 40 MG TAB PO SCH ×2 (08:42→20:54)
[2023-02-16 10:36] LABS: HBSAG NON-REACTIVE (NON-REACTIVE); Hepatitis B Surface Ab, Quant <5 mIU/mL (> OR = 10)
[2023-02-16] MEDS: VENLAFAXINE HCL XR 75 MG CAPXR PO SCH (20:54)
[2023-02-16] MEDS: allopurinoL 300 MG TAB PO SCH (20:55)
[2023-02-16] MEDS: ATORVASTATIN 40 MG TAB PO SCH (20:55)
[2023-02-16] MEDS: LORazepam 1 MG TAB PO PRN (20:57)
--- NOTE | 2023-02-16 22:36 | Hospitalist Progress Note ---
Date of Service February 16, 2023 Assessment & Plan (1) Weakness: Plan: Due to anemia. Improved after transfusion. OT and PT evaluations. Supportive care Patient though has poor nutrition and had been declining at the rehab. Likely due to the anemia. is concerned about his nutrition status however. Diet advanced on 02/15, appears to be tolerating this. Patient tolerated dialysis, will consult PT and OT. Patient likely will need a higher level of care at discharge given his multiple comorbidities. On 02/16, he appears to be tolerating his intake more, Will advance his diet. Patient also ambulating slightly better today, however he is not at goal, He may benefit from inpatient rehab. (2) Type II diabetes mellitus: Plan: Resumed ADA diet. Sliding scale coverage for now (3) Systolic heart failure: Plan: No overt exacerbation. Monitor intake and output. Continue current medical management (4) Hypertension: Plan: Stable. Continue current medical management (5) Hyperlipidemia: Plan: Stable. Continue statin therapy (6) GERD (gastroesophageal reflux disease): Plan: Protonix drip switched to oral dosing. (7) ESRD (end stage renal disease): Plan: [facility] nephrology to manage hemodialysis requirements (8) CAD (coronary artery disease): Plan: Stable. Continue current medical management (9) Atrial fibrillation with RVR: Plan: Now stable. Continue current medical management. Avoid systemic anticoagulation due to GI bleeding. Eliquis is on hold and will remain on hold for at least 1 week post discharge (10) Acute upper gastrointestinal bleeding: Plan: Producing melena. Appreciate gastroenterology consultation and recommendations. EGD negative for any signs of active bleeding. Protonix drip and octreotide drip have been discontinued. He is now on oral Protonix. (11) Symptomatic anemia: Plan: Hemoglobin now 9.0 after a total of 4 units packed red blood cells. Hemoglbin appears stable. Admission and Anticipated Discharge Date Admission Date: February 11, 2023 Subjective 62 yo male reports no new symptoms. He states he is tolerating his diet better. He had one episode of emesis, but was small amount. Review of Systems Review of Systems: All systems reviewed & are unremarkable except as noted in HPI & below Physical Exam Physical Exam: General-alert and oriented x3, no fevers, no chills HEENT-subcutaneous mid forehead hematoma from recent fall. Pupils equal and reactive to light, extraocular muscles intact Neck-no lymphadenopathy or thyromegaly, trachea midline Chest-clear to auscultation percussion. No rales, wheezing or rhonchi Cardiac-regular rate and rhythm, normal S1 and S2 Abdomen-normal bowel sounds, nontender, no hepatosplenomegaly Extremities-no cyanosis, clubbing, or edema Neuro-cranial nerves II through XII intact, motor and sensory function within normal limits, strength symmetrical , no focal deficits Psych-normal affect, normal mood Results & Data Results & Data Vital Signs (Past 12 Hours) Vital Signs Temp Pulse Pulse Pulse Resp BP BP 02/16/23 19:25 36.5 C 80 18 150/86 H 02/16/23 15:40 36.6 C 78 18 133/87 02/16/23 15:23 80 02/16/23 12:03 36.6 C 79 18 122/75 Pulse Ox O2 Del Method 02/16/23 19:25 96 Room Air 02/16/23 15:40 96 Room Air 02/16/23 15:23 02/16/23 12:03 94 Room Air PG Care Time/CCT Total # of Minutes Spent Total Time Spent with Patient: Total time spent is greater than 50% in coordination of care (as documented) at patient's floor/unit and/or counseling patient: Coding Level of Care Code 05912 SUB INP/OBS CARE 2/35MIN Diagnoses Weakness R53.1 Type II diabetes mellitus E11.9 Systolic heart failure I50.20 Hypertension I10 Hyperlipidemia E78.5 GERD (gastroesophageal reflux disease) K21.9 ESRD (end stage renal disease) N18.6 CAD (coronary artery disease) I25.10 Atrial fibrillation with RVR I48.91 Acute upper gastrointestinal bleeding K92.2 Symptomatic anemia D64.9
[2023-02-17 06:42] LABS: Hematocrit (blood only) 34.8 % (42.0-52.0); Hemoglobin 11.1 g/dl (14.0-18.0); Mean Corpuscular Hemoglobin 30.2 pg (25.0-34.0); Mean Corpuscular Hgb Conc 31.9 g/dL (32.0-36.0); Mean Corpuscular Volume 94.6 fL (80.0-100.0); Mean Platelet Volume 12.5 fL (9.4-12.4); Nucleated RBC # (auto) 0.02 K/uL (0-0.12); Nucleated RBC % (auto) 0.2 %; Platelet Count 117 K/uL (130-400); RDW Standard Deviation 66.8 fL (36.4-46.3); Red Blood Count 3.68 M/uL (4.70-6.10); White Blood Count 9.25 K/ul (4.8-10.8)
[2023-02-17] MEDS ORDERED: EPOETIN ALFA 10,000 UNITS/ML VIAL IV ONE (07:00)
[2023-02-17] MEDS ORDERED: SODIUM CHLORIDE 0.9% 1000ML 1,000 ML IV PRN (07:00)
[2023-02-17] MEDS: VALSARTAN/SACUBITRIL 26/24MG TAB PO SCH ×2 (08:43→20:18)
[2023-02-17] MEDS: buPROPion SR 100 MG TABCR PO SCH (08:43)
[2023-02-17] MEDS: PANTOprazole 40 MG TAB PO SCH ×2 (08:43→20:17)
[2023-02-17 08:45] LABS: BUN Creatinine Ratio 3.4 (10-20); Calcium 8.9 mg/dl (8.6-10.3); Creatinine Clr Calc Pharmacy 18.4 ml/min; Est GFR (African American) 15.5 ml/min; Est GFR (Non-African American) 13.3 ml/min; Potassium 3.6 mmol/L (3.5-5.1)
--- NOTE | 2023-02-17 10:39 | Dialysis Progress Note ---
Date of Service February 17, 2023 Assessment & Plan Admission and Anticipated Discharge Date Admission Date: February 11, 2023 Subjective Subjective Assessment & Plan (1) ESRD (end stage renal disease): Plan: Seen on tx today. Tolerating but restless. CVC not so great today. Will start using heparin from now. lying flat w/o issue. Planning to take 3 kilo (2) Acute on chronic anemia: Plan: Had 2 units packed red cells in the ER with improvement of hemoglobin from 7- >7.6. Slated to receive 2 more units packed red cells on February 12. per primary service no heparin in HD for today but will start giving from next session Subjective Seen and evaluated during dialysis.Denies any issues. Feels comfortable. CVC not so great and Qb only 275. BP fine. Denies shortness of breath, denies edema. Had One episode of vomiting earlier. Review of Systems Review of Systems: All systems reviewed & are unremarkable except as noted in Subjective Physical Exam Constitutional: well developed (Lying flat without respiratory distress), well nourished and + obese; no acute distress Eyes: EOM intact bilaterally ENMT: Ears: no external ear abnormality Nose: no external nose abnormality Mouth: + dry oral mucous membranes Neck: no nuchal rigidity Respiratory: normal respiratory effort Auscultation: + diminished lung sounds Cardiovascular: Rate/Rhythm: regular rate and regular rhythm Extremities: no edema Gastrointestinal (Abdomen): Inspection/Auscultation: normal bowel sounds Percussion/Palpation: abdomen soft; abdomen nontender Musculoskeletal: Extremities: strength 5/5 throughout Skin: no rashes, warm and dry Trauma: + contusion and + periorbital ecchymosis Results & Data Vital Signs (Past 12 Hours) Vital Signs Temp Pulse Pulse Pulse Resp BP BP 02/17/23 09:18 78 160/89 H 02/17/23 09:12 36.3 C L 83 02/17/23 07:28 36.4 C L 80 17 155/87 H 02/17/23 02:28 36.5 C 77 16 118/78 02/17/23 00:00 78 02/16/23 22:40 02/16/23 22:57 36.7 C 76 19 122/71 Pulse Ox O2 Del Method 02/17/23 09:18 02/17/23 09:12 02/17/23 07:28 93 Room Air 02/17/23 02:28 95 Room Air 02/17/23 00:00 02/16/23 22:40 Room Air 02/16/23 22:57 94 Room Air
[2023-02-17] MEDS: AMIODARONE 200 MG TAB PO SCH ×2 (13:41→20:17)
[2023-02-17] MEDS: carvediloL 12.5 MG TAB PO SCH ×2 (13:41→17:23)
[2023-02-17] MEDS ORDERED: PROCHLORPERAZINE 5 MG in SYRINGE 4 ML IV PRN (18:07)
[2023-02-17] MEDS: allopurinoL 300 MG TAB PO SCH (20:16)
[2023-02-17] MEDS: ATORVASTATIN 40 MG TAB PO SCH (20:17)
[2023-02-17] MEDS: VENLAFAXINE HCL XR 75 MG CAPXR PO SCH (20:18)
[2023-02-17] MEDS: LORazepam 1 MG TAB PO PRN (21:28)
--- NOTE | 2023-02-17 21:39 | Hospitalist Progress Note ---
Date of Service February 17, 2023 Assessment & Plan (1) Weakness: Plan: Due to anemia. Improved after transfusion. OT and PT evaluations. Supportive care Patient though has poor nutrition and had been declining at the rehab. is concerned about his nutrition status however. Has been slowly advanced these past few days, now tolerating a low fiber diet. Patient is no longer on dialysis renal diet given his electrolyte abnomralities as recommended by dietary, Given his symptoms of nausea, and poor oral intake, will order reglan 2.5 mg PO TID (dialysis dosing) Patient tolerated dialysis, will consult PT and OT. Patient likely will need a higher level of care at discharge given his multiple comorbidities. Patient also ambulating slightly better today, however he is not at goal, He may benefit from inpatient rehab. (2) Type II diabetes mellitus: Plan: Resumed ADA diet. Sliding scale coverage for now (3) Systolic heart failure: Plan: No overt exacerbation. Monitor intake and output. Continue current medical management (4) Hypertension: Plan: Stable. Continue current medical management (5) Hyperlipidemia: Plan: Stable. Continue statin therapy (6) GERD (gastroesophageal reflux disease): Plan: Protonix drip switched to oral dosing. (7) ESRD (end stage renal disease): Plan: [facility] nephrology to manage hemodialysis requirements (8) CAD (coronary artery disease): Plan: Stable. Continue current medical management (9) Atrial fibrillation with RVR: Plan: Now stable. Continue current medical management. Avoid systemic anticoagulation due to GI bleeding. Eliquis is on hold and will remain on hold for at least 1 week post discharge (10) Acute upper gastrointestinal bleeding: Plan: Producing melena. Appreciate gastroenterology consultation and recommendations. EGD negative for any signs of active bleeding. Protonix drip and octreotide drip have been discontinued. He is now on oral Protonix. (11) Symptomatic anemia: Plan: Hemoglobin stable after a total of 4 units packed red blood cells. Hemoglobin above 11 Admission and Anticipated Discharge Date Admission Date: February 11, 2023 Subjective Patient reports eating about half his lunch. Patient reports no new symptoms. Review of Systems Review of Systems: All systems reviewed & are unremarkable except as noted in HPI & below Physical Exam Physical Exam: General-alert and oriented x3, no fevers, no chills HEENT-subcutaneous mid forehead hematoma from recent fall. Pupils equal and reactive to light, extraocular muscles intact Neck-no lymphadenopathy or thyromegaly, trachea midline Chest-clear to auscultation percussion. No rales, wheezing or rhonchi Cardiac-regular rate and rhythm, normal S1 and S2 Abdomen-normal bowel sounds, nontender, no hepatosplenomegaly Extremities-no cyanosis, clubbing, or edema Neuro-cranial nerves II through XII intact, motor and sensory function within normal limits, strength symmetrical , no focal deficits Psych-normal affect, normal mood Results & Data Results & Data Vital Signs (Past 12 Hours) Vital Signs Temp Pulse Pulse Pulse Resp BP BP 02/17/23 19:45 36.5 C 76 18 112/79 02/17/23 16:21 36.5 C 77 18 94/59 L 02/17/23 13:23 36.5 C 88 80 02/17/23 13:00 92 H 131/70 02/17/23 12:05 91 H 111/72 02/17/23 12:30 88 113/63 02/17/23 12:00 68 79/52 L 02/17/23 11:30 82 104/89 02/17/23 11:04 78 113/72 02/17/23 10:30 62 162/82 H 02/17/23 10:00 72 142/71 H BP Pulse Ox O2 Del Method 02/17/23 19:45 96 Room Air 02/17/23 16:21 93 Room Air 02/17/23 13:23 125/79 02/17/23 13:00 02/17/23 12:05 02/17/23 12:30 02/17/23 12:00 02/17/23 11:30 02/17/23 11:04 02/17/23 10:30 02/17/23 10:00 PG Care Time/CCT Total # of Minutes Spent Total Time Spent with Patient: Total time spent is greater than 50% in coordination of care (as documented) at patient's floor/unit and/or counseling patient: Coding Level of Care Code 17842 SUB INP/OBS CARE 2/35MIN Diagnoses Weakness R53.1 Type II diabetes mellitus E11.9 Systolic heart failure I50.20 Hypertension I10 Hyperlipidemia E78.5 GERD (gastroesophageal reflux disease) K21.9 ESRD (end stage renal disease) N18.6 CAD (coronary artery disease) I25.10 Atrial fibrillation with RVR I48.91 Acute upper gastrointestinal bleeding K92.2 Symptomatic anemia D64.9
[2023-02-18] MEDS: AMIODARONE 200 MG TAB PO SCH ×2 (08:54→20:47)
[2023-02-18] MEDS: PANTOprazole 40 MG TAB PO SCH ×2 (08:54→20:47)
[2023-02-18] MEDS: VALSARTAN/SACUBITRIL 26/24MG TAB PO SCH ×2 (08:54→20:47)
[2023-02-18] MEDS: carvediloL 12.5 MG TAB PO SCH ×2 (08:54→17:31)
[2023-02-18] MEDS: buPROPion SR 100 MG TABCR PO SCH (08:54)
[2023-02-18] MEDS: METOCLOPRAMIDE HCL 5 MG TABLET PO SCH ×3 (08:55→17:32)
--- NOTE | 2023-02-18 10:02 | Hospitalist Progress Note ---
Date of Service February 18, 2023 Assessment & Plan (1) Weakness: Plan: Acute on chronic, due to acute blood loss anemia. Improved after transfusion of 4 units packed red blood cells considering GI blood loss although upper endoscopy is negative for acute source of bleeding transition from IV Protonix to oral Protonix Consideration of outpatient capsule enteroscopy OT and PT evaluations. Unclear whether acute or subacute rehab Patient tolerated dialysis, (2) Type II diabetes mellitus: Plan: Chronic, controlled, still imparts moderate risk resumed ADA diet. Sliding scale coverage Patient with endorgan damage Gastroparesis may be playing a role in nausea vomiting and satiety issues resulting in the poor nutritional intake (3) Systolic heart failure: Plan: Chronic and stable also help to be managed by dialysis. Continue carvedilol and low-dose Entresto (4) Hypertension: Plan: Chronic and stable (5) Hyperlipidemia: Plan: Chronic and stable (6) ESRD (end stage renal disease): Plan: Chronic and stable, [facility] nephrology to manage hemodialysis requirements (7) Atrial fibrillation with RVR: Plan: Patient's acute GI bleed was influenced by his chronic anticoagulation for atrial fibrillation this is now on hold and will likely remain on hold for the short-term future until we have completed the work-up with possible capsule enteroscopy Admission and Anticipated Discharge Date Admission Date: February 11, 2023 Subjective Patient was seen in the company of his . He admits to being very weak however he is not a focal complaints. I did speak to case management regarding his disposition and the need of a peer to peer with insurance Physical Exam Physical Exam: Awake alert and appropriate no focal neurological loss cardiac exam is irregular but rate controlled, lungs are clear, abdomen NABS soft and nontender Results & Data Results & Data Vital Signs (Past 12 Hours) Vital Signs Temp Pulse Pulse Pulse Resp BP BP 02/18/23 07:45 98.1 F 84 18 150/84 H 02/18/23 08:06 96 H 22 147/75 H 02/18/23 04:26 97.9 F 79 18 135/85 02/18/23 00:00 77 02/17/23 23:25 98.1 F 79 18 112/75 Pulse Ox O2 Del Method O2 Flow Rate 02/18/23 07:45 93 Room Air 02/18/23 08:06 93 Nasal Cannula 2 02/18/23 04:26 96 Room Air 02/18/23 00:00 02/17/23 23:25 91 Room Air PG Care Time/CCT Total # of Minutes Spent Total Time Spent with Patient: Total time spent is greater than 50% in coordination of care (as documented) at patient's floor/unit and/or counseling patient: Coding Level of Care Code 03687 SUB INP/OBS CARE 2/35MIN Diagnoses Weakness R53.1 Type II diabetes mellitus E11.9 Systolic heart failure I50.20 Hypertension I10 Hyperlipidemia E78.5 ESRD (end stage renal disease) N18.6 Atrial fibrillation with RVR I48.91
[2023-02-18] MEDS: ATORVASTATIN 40 MG TAB PO SCH (20:47)
[2023-02-18] MEDS: allopurinoL 300 MG TAB PO SCH (20:47)
[2023-02-18] MEDS: VENLAFAXINE HCL XR 75 MG CAPXR PO SCH (20:48)
[2023-02-18] MEDS: LORazepam 1 MG TAB PO PRN (20:54)
[2023-02-19] MEDS ORDERED: SODIUM CHLORIDE 0.9% 1000ML 1,000 ML IV PRN (07:00)
[2023-02-19] MEDS: carvediloL 12.5 MG TAB PO SCH ×2 (08:11→17:09)
[2023-02-19] MEDS: METOCLOPRAMIDE HCL 5 MG TABLET PO SCH ×3 (08:11→17:09)
--- NOTE | 2023-02-19 09:59 | Dialysis Progress Note ---
Date of Service February 19, 2023 Assessment & Plan Admission and Anticipated Discharge Date Admission Date: February 11, 2023 Subjective Assessment & Plan (1) ESRD (end stage renal disease): Plan: Seen on tx today. Tolerating but restless. BP did drop so have lowered the UF goal. Will start using heparin from now. lying flat w/o issue. next HD will be Wednesday. (2) Acute on chronic anemia: Plan: Had 2 units packed red cells in the ER with improvement of hemoglobin from 7- >7.6. Slated to receive 2 more units packed red cells on February 12. per primary service Subjective Seen and evaluated during dialysis. Bp dropped earlier so will back off the UF goal. Denies any issues. having nausea. Denies shortness of breath, denies edema. Review of Systems Review of Systems: All systems reviewed & are unremarkable except as noted in Subjective Physical Exam Constitutional: well developed (Lying flat without respiratory distress), well nourished and + obese; no acute distress C Eyes: EOM intact bilaterally ENMT: Ears: no external ear abnormality Nose: no external nose abnormality Mouth: + dry oral mucous membranes Neck: no nuchal rigidity Respiratory: normal respiratory effort Auscultation: + diminished lung sounds Cardiovascular: Rate/Rhythm: regular rate and regular rhythm Extremities: no edema Gastrointestinal (Abdomen): Inspection/Auscultation: normal bowel sounds Percussion/Palpation: abdomen soft; abdomen nontender Musculoskeletal: Extremities: strength 5/5 throughout Skin: no rashes, warm and dry Trauma: + contusion and + periorbital ecchymosis Results & Data Vital Signs (Past 12 Hours) Vital Signs Temp Pulse Pulse Pulse Resp BP BP 02/19/23 09:30 78 87/68 L 02/19/23 09:00 89 113/64 02/19/23 08:35 82 121/72 02/19/23 08:29 36.4 C L 84 02/19/23 07:40 36.3 C L 83 18 138/77 02/19/23 07:30 81 02/19/23 00:00 78 02/19/23 03:15 36.6 C 83 20 121/75 02/18/23 23:29 36.7 C 78 20 101/53 L Pulse Ox O2 Del Method 02/19/23 09:30 02/19/23 09:00 02/19/23 08:35 02/19/23 08:29 02/19/23 07:40 95 Room Air 02/19/23 07:30 02/19/23 00:00 02/19/23 03:15 94 Room Air 02/18/23 23:29 90 Room Air
[2023-02-19] MEDS: AMIODARONE 200 MG TAB PO SCH ×2 (12:31→21:25)
[2023-02-19] MEDS: buPROPion SR 100 MG TABCR PO SCH (12:31)
[2023-02-19] MEDS: VALSARTAN/SACUBITRIL 26/24MG TAB PO SCH ×2 (12:32→21:26)
[2023-02-19] MEDS: PANTOprazole 40 MG TAB PO SCH ×2 (12:32→21:25)
--- NOTE | 2023-02-19 17:36 | Hospitalist Progress Note ---
Date of Service February 19, 2023 Assessment & Plan (1) Weakness: Plan: Acute on chronic, due to acute blood loss anemia. Improved after transfusion of 4 units packed red blood cells considering GI blood loss although upper endoscopy is negative for acute source of bleeding transition from IV Protonix to oral Protonix Consideration of outpatient capsule enteroscopy OT and PT evaluations. denied acute rehab, will explore other options (2) Type II diabetes mellitus: Plan: Chronic, controlled, still imparts moderate risk resumed ADA diet. Sliding scale coverage Patient with endorgan damage Gastroparesis may be playing a role in nausea vomiting and satiety issues resulting in the poor nutritional intake (3) Systolic heart failure: Plan: Chronic and stable also help to be managed by dialysis. Continue carvedilol and low-dose Entresto Last Ef was 25 % (4) Hypertension: Plan: Chronic and stable (5) Hyperlipidemia: Plan: Chronic and stable (6) ESRD (end stage renal disease): Plan: Chronic and stable, [facility] nephrology to manage hemodialysis requirements (7) Atrial fibrillation with RVR: Plan: Patient's acute GI bleed was influenced by his chronic anticoagulation for atrial fibrillation this is now on hold and will likely remain on hold for the short-term future until we have completed the work-up with possible capsule enteroscopy Admission and Anticipated Discharge Date Admission Date: February 11, 2023 Subjective pt was seen in Dialysis session, pt has no complaints was informed of being denied on peer to peer appeal for acute rehab with [employer] insurance Physical Exam Physical Exam: Awake alert and appropriate no focal neurological loss cardiac exam is irregular but rate controlled, lungs are clear, abdomen NABS soft and nontender Results & Data Results & Data Vital Signs (Past 12 Hours) Vital Signs Temp Pulse Pulse Resp BP BP Pulse Ox 02/19/23 16:00 97.9 F 91 H 18 123/81 94 02/19/23 16:00 81 02/19/23 12:20 97.5 F L 81 140/72 02/19/23 12:00 70 114/71 02/19/23 12:00 97.9 F 84 18 110/77 98 02/19/23 11:30 84 110/67 02/19/23 11:00 69 100/59 L 02/19/23 10:30 80 96/68 L 02/19/23 10:00 75 92/58 L 02/19/23 09:30 78 87/68 L 02/19/23 09:00 89 113/64 02/19/23 08:35 82 121/72 02/19/23 08:29 97.5 F L 84 02/19/23 07:40 97.3 F L 83 18 138/77 95 02/19/23 07:30 81 O2 Del Method 02/19/23 16:00 Room Air 02/19/23 16:00 02/19/23 12:20 02/19/23 12:00 02/19/23 12:00 Room Air 02/19/23 11:30 02/19/23 11:00 02/19/23 10:30 02/19/23 10:00 02/19/23 09:30 02/19/23 09:00 02/19/23 08:35 02/19/23 08:29 02/19/23 07:40 Room Air 02/19/23 07:30 PG Care Time/CCT Total # of Minutes Spent Total Time Spent with Patient: Total time spent is greater than 50% in coordination of care (as documented) at patient's floor/unit and/or counseling patient: Coding Level of Care Code 84529 SUB INP/OBS CARE 2/35MIN Diagnoses Weakness R53.1 Type II diabetes mellitus E11.9 Systolic heart failure I50.20 Hypertension I10 Hyperlipidemia E78.5 ESRD (end stage renal disease) N18.6 Atrial fibrillation with RVR I48.91
[2023-02-19] MEDS: VENLAFAXINE HCL XR 75 MG CAPXR PO SCH (21:25)
[2023-02-19] MEDS: ATORVASTATIN 40 MG TAB PO SCH (21:25)
[2023-02-19] MEDS: allopurinoL 300 MG TAB PO SCH (21:26)
[2023-02-19] MEDS: LORazepam 1 MG TAB PO PRN (21:28)
[2023-02-20] MEDS: carvediloL 12.5 MG TAB PO SCH ×2 (09:10→17:02)
[2023-02-20] MEDS: PANTOprazole 40 MG TAB PO SCH ×2 (09:11→21:29)
[2023-02-20] MEDS: VALSARTAN/SACUBITRIL 26/24MG TAB PO SCH ×2 (09:11→21:30)
[2023-02-20] MEDS: METOCLOPRAMIDE HCL 5 MG TABLET PO SCH ×3 (09:11→17:03)
[2023-02-20] MEDS: AMIODARONE 200 MG TAB PO SCH ×2 (09:11→21:30)
[2023-02-20] MEDS: buPROPion SR 100 MG TABCR PO SCH (09:11)
--- NOTE | 2023-02-20 13:46 | Hospitalist Progress Note ---
Date of Service February 20, 2023 Assessment & Plan (1) Weakness: Plan: Acute on chronic, due to acute blood loss anemia. Improved after transfusion of 4 units packed red blood cells considering GI blood loss although upper endoscopy is negative for acute source of bleeding transition from IV Protonix to oral Protonix Consideration of outpatient capsule enteroscopy OT and PT evaluations. denied acute rehab, will explore other options (2) Type II diabetes mellitus: Plan: Chronic, controlled, still imparts moderate risk resumed ADA diet. Sliding scale coverage Patient with endorgan damage Gastroparesis may be playing a role in nausea vomiting and satiety issues resulting in the poor nutritional intake (3) Systolic heart failure: Plan: Chronic and stable also help to be managed by dialysis. Continue carvedilol and low-dose Entresto Last Ef was 25 % (4) Hypertension: Plan: Chronic and stable (5) Hyperlipidemia: Plan: Chronic and stable (6) ESRD (end stage renal disease): Plan: Chronic and stable, [facility] nephrology to manage hemodialysis requirements (7) Atrial fibrillation with RVR: Plan: Patient's acute GI bleed was influenced by his chronic anticoagulation for atrial fibrillation this is now on hold and will likely remain on hold for the short-term future until we have completed the work-up with possible capsule enteroscopy Admission and Anticipated Discharge Date Admission Date: February 11, 2023 Subjective Patient was seen in his room he offers no complaints awaiting a final disposition was denied rehab 1 day prior Healing bruises about his face and eyes Still feels very weak did have a controlled fall into his bed yesterday Card exam is distant he has history of A-fib but sounds regular today Lungs are clear Physical Exam Physical Exam: Awake alert and appropriate no focal neurological loss with exception of diabetic related neuropathy cardiac exam is regular but rate controlled, lungs are clear, abdomen NABS soft and nontender Results & Data Results & Data Vital Signs (Past 12 Hours) Vital Signs Temp Pulse Pulse Resp BP Pulse Ox O2 Del Method 02/20/23 12:00 97.5 F L 81 20 108/75 97 Room Air 02/20/23 08:00 88 02/20/23 07:57 97.9 F 88 18 140/77 94 Room Air 02/20/23 03:55 98.1 F 81 19 142/81 H 95 Room Air PG Care Time/CCT Total # of Minutes Spent Total Time Spent with Patient: Total time spent is greater than 50% in coordination of care (as documented) at patient's floor/unit and/or counseling patient: Coding Level of Care Code 33623 SUB INP/OBS CARE Diagnoses Weakness R53.1 Type II diabetes mellitus E11.9 Systolic heart failure I50.20 Hypertension I10 Hyperlipidemia E78.5 ESRD (end stage renal disease) N18.6 Atrial fibrillation with RVR I48.91
[2023-02-20] MEDS: VENLAFAXINE HCL XR 75 MG CAPXR PO SCH (21:29)
[2023-02-20] MEDS: allopurinoL 300 MG TAB PO SCH (21:30)
[2023-02-20] MEDS: LORazepam 1 MG TAB PO PRN (21:30)
[2023-02-20] MEDS: ATORVASTATIN 40 MG TAB PO SCH (21:30)
[2023-02-21 06:48] LABS: BUN Creatinine Ratio 4.7 (10-20); Calcium 8.5 mg/dl (8.6-10.3); Creatinine Clr Calc Pharmacy 17.1 ml/min; Est GFR (African American) 14.3 ml/min; Est GFR (Non-African American) 12.3 ml/min; Potassium 3.6 mmol/L (3.5-5.1)
[2023-02-21 07:28] LABS: Hematocrit (blood only) 35.8 % (42.0-52.0); Hemoglobin 11.6 g/dl (14.0-18.0); Mean Corpuscular Hemoglobin 30.4 pg (25.0-34.0); Mean Corpuscular Hgb Conc 32.4 g/dL (32.0-36.0); Platelet Count 58 K/uL (130-400); Platelet Estimate Decreased (Normal); RDW Coefficient of Variation 20.7 % (11.5-14.5); RDW Standard Deviation 68.6 fL (36.4-46.3); Red Blood Count 3.81 M/uL (4.70-6.10); White Blood Count 7.59 K/ul (4.8-10.8)
[2023-02-21] MEDS: buPROPion SR 100 MG TABCR PO SCH (08:59)
[2023-02-21] MEDS: AMIODARONE 200 MG TAB PO SCH ×2 (08:59→20:32)
[2023-02-21] MEDS: PANTOprazole 40 MG TAB PO SCH ×2 (08:59→20:32)
[2023-02-21] MEDS: METOCLOPRAMIDE HCL 5 MG TABLET PO SCH ×3 (08:59→16:16)
[2023-02-21] MEDS: VALSARTAN/SACUBITRIL 26/24MG TAB PO SCH ×2 (08:59→20:32)
[2023-02-21] MEDS: carvediloL 12.5 MG TAB PO SCH ×2 (08:59→16:16)
--- NOTE | 2023-02-21 13:13 | Hospitalist Progress Note ---
Date of Service February 21, 2023 Assessment & Plan (1) Weakness: Plan: Acute on chronic, due to acute blood loss anemia. Improved after transfusion of 4 units packed red blood cells considering GI blood loss although upper endoscopy is negative for acute source of bleeding transition from IV Protonix to oral Protonix Consideration of outpatient capsule enteroscopy OT and PT evaluations. denied acute rehab, will explore other options (2) Type II diabetes mellitus: Plan: Chronic, controlled, still imparts moderate risk resumed ADA diet. Sliding scale coverage Patient with endorgan damage Gastroparesis may be playing a role in nausea vomiting and satiety issues resulting in the poor nutritional intake (3) Systolic heart failure: Plan: Chronic and stable also help to be managed by dialysis. Continue carvedilol and low-dose Entresto Last Ef was 25 % (4) Hypertension: Plan: Chronic and stable (5) Hyperlipidemia: Plan: Chronic and stable (6) ESRD (end stage renal disease): Plan: Chronic and stable, [facility] nephrology to manage hemodialysis requirements (7) Atrial fibrillation with RVR: Plan: Patient's acute GI bleed was influenced by his chronic anticoagulation for atrial fibrillation this is now on hold and will likely remain on hold for the short-term future until we have completed the work-up with possible capsule enteroscopy Admission and Anticipated Discharge Date Admission Date: February 11, 2023 Subjective Patient was seen in his room in the company of his he was very weak and had difficulty getting of bedside commode feels this is a predialysis diet and this impacts his performance status he offers no focal complaints otherwise Physical Exam Physical Exam: Awake alert and appropriate no focal neurological loss with exception of diabetic related neuropathy cardiac exam is regular but rate controlled, lungs are clear, abdomen NABS soft and nontender Results & Data Results & Data Vital Signs (Past 12 Hours) Vital Signs Temp Pulse Pulse Resp BP Pulse Ox O2 Del Method 02/21/23 11:33 97.7 F 84 18 141/71 H 99 Room Air 02/21/23 10:05 Room Air 02/21/23 08:00 79 02/21/23 07:55 97.7 F 85 16 121/78 93 Room Air 02/21/23 04:00 97.9 F 80 19 154/71 H 91 Room Air Laboratory Results Review of CBC Review of PRP PG Care Time/CCT Total # of Minutes Spent Total Time Spent with Patient: Total time spent is greater than 50% in coordination of care (as documented) at patient's floor/unit and/or counseling patient: Coding Level of Care Code 90153 SUB INP/OBS CARE 11/18MIN Diagnoses Weakness R53.1 Type II diabetes mellitus E11.9 Systolic heart failure I50.20 Hypertension I10 Hyperlipidemia E78.5 ESRD (end stage renal disease) N18.6 Atrial fibrillation with RVR I48.91
[2023-02-21] MEDS: allopurinoL 300 MG TAB PO SCH (20:31)
[2023-02-21] MEDS: VENLAFAXINE HCL XR 75 MG CAPXR PO SCH (20:31)
[2023-02-21] MEDS: ATORVASTATIN 40 MG TAB PO SCH (20:32)
[2023-02-21] MEDS: LORazepam 1 MG TAB PO PRN (20:34)
[2023-02-22] MEDS ORDERED: SODIUM CHLORIDE 0.9% 1000ML 1,000 ML IV PRN (07:00)
[2023-02-22] MEDS: PANTOprazole 40 MG TAB PO SCH ×2 (08:02→20:25)
[2023-02-22] MEDS: AMIODARONE 200 MG TAB PO SCH ×2 (08:03→20:25)
[2023-02-22] MEDS: buPROPion SR 100 MG TABCR PO SCH (08:03)
[2023-02-22] MEDS: METOCLOPRAMIDE HCL 5 MG TABLET PO SCH ×3 (08:04→17:26)
[2023-02-22 09:40] LABS: BUN Creatinine Ratio 5.7 (10-20); Calcium 8.3 mg/dl (8.6-10.3); Creatinine Clr Calc Pharmacy 18.5 ml/min; Est GFR (African American) 16.2 ml/min; Potassium 3.6 mmol/L (3.5-5.1)
[2023-02-22 09:51] LABS: Hematocrit (blood only) 35.2 % (42.0-52.0); Hemoglobin 11.4 g/dl (14.0-18.0); Mean Corpuscular Hemoglobin 30.2 pg (25.0-34.0); Mean Corpuscular Hgb Conc 32.4 g/dL (32.0-36.0); Mean Corpuscular Volume 93.4 fL (80.0-100.0); Platelet Count 50 K/uL (130-400); RDW Coefficient of Variation 20.7 % (11.5-14.5); RDW Standard Deviation 68.9 fL (36.4-46.3); Red Blood Count 3.77 M/uL (4.70-6.10); White Blood Count 5.63 K/ul (4.8-10.8)
[2023-02-22 09:52] LABS: Anisocytosis Present; Basophils # (auto) 0.02 K/uL (0-0.2); Basophils % (auto) 0.4 %; Echinocytes 1+; Immature Granulocytes # (auto) 0.03 K/uL (0.01-0.20); Immature Granulocytes % (auto) 0.5 %; Lymphocytes # (auto) 0.74 K/uL (1.2-3.4); Lymphocytes % (auto) 13.1 %; Monocytes # (auto) 0.19 K/uL (0.11-0.59); Monocytes % (auto) 3.4 %; Neutrophils # (auto) 4.65 K/uL (1.40-6.50); Neutrophils % (auto) 82.6 %; Polychromasia 1+; Toxic Vacuolation 1+
[2023-02-22 10:14] LABS: INR 1.3 (0.9-1.1); Partial Thromboplastin Ratio 2.3; Prothrombin Time 13.6 Seconds (9.0-12.0)
[2023-02-22 10:19] LABS: Partial Thromboplastin Time 65.4 Seconds (21.0-31.0)
[2023-02-22] MEDS: VALSARTAN/SACUBITRIL 26/24MG TAB PO SCH ×2 (13:17→20:25)
[2023-02-22] MEDS: carvediloL 12.5 MG TAB PO SCH ×2 (13:17→17:20)
--- NOTE | 2023-02-22 15:40 | Hospitalist Progress Note ---
Date of Service February 22, 2023 Assessment & Plan (1) Weakness: Plan: Acute on chronic, due to acute blood loss anemia. Improved after transfusion of 4 units packed red blood cells considering GI blood loss although upper endoscopy is negative for acute source of bleeding transition from IV Protonix to oral Protonix Consideration of outpatient capsule enteroscopy OT and PT evaluations. Family appeal granted acute rehab Decreased appetite and diarrhea we will check for C. difficile continue Reglan for diabetic gastroparesis (2) Type II diabetes mellitus: Plan: Chronic, controlled, still imparts moderate risk resumed ADA diet. Sliding scale coverage Patient with endorgan damage Gastroparesis may be playing a role in nausea vomiting and satiety issues resulting in the poor nutritional intake (3) Systolic heart failure: Plan: Chronic and stable also help to be managed by dialysis. Continue carvedilol and low-dose Entresto Last Ef was 25 % (4) Hypertension: Plan: Chronic and stable tolerating Entresto with reasonable blood pressure (5) Hyperlipidemia: Plan: Chronic and stable (6) ESRD (end stage renal disease): Plan: Chronic and stable, [facility] nephrology to manage hemodialysis requirements (7) Atrial fibrillation with RVR: Plan: Patient's acute GI bleed was influenced by his chronic anticoagulation for atrial fibrillation this is now on hold and will likely remain on hold for the short-term future until we have completed the work-up with possible capsule enteroscopy Plan Given diarrhea for last few days pending C. difficile testing Admission and Anticipated Discharge Date Admission Date: February 11, 2023 Subjective Pt was seen after dialysis, he is stating he does not feel like eating, he has some loose bowel movements since the weekend, does not have significant leukocytosis, is on renal dosed reglan for diabetic gastroparesis Physical Exam Physical Exam: Awake alert and appropriate no focal neurological loss with exception of diabetic related neuropathy cardiac exam is regular but rate controlled, lungs are clear, abdomen NABS soft and nontender Results & Data Results & Data Vital Signs (Past 12 Hours) Vital Signs Temp Pulse Pulse Resp BP BP Pulse Ox 02/22/23 12:20 97.5 F L 87 125/77 02/22/23 12:00 92 H 103/61 02/22/23 11:30 88 95/64 L 02/22/23 11:00 88 105/61 02/22/23 10:30 60 96/55 L 02/22/23 10:00 51 L 116/51 L 02/22/23 09:30 56 L 125/32 L 02/22/23 09:00 81 132/55 L 02/22/23 08:38 80 107/57 L 02/22/23 08:30 97.5 F L 81 02/22/23 07:25 97.5 F L 79 18 134/77 93 O2 Del Method 02/22/23 12:20 02/22/23 12:00 02/22/23 11:30 02/22/23 11:00 02/22/23 10:30 02/22/23 10:00 02/22/23 09:30 02/22/23 09:00 02/22/23 08:38 02/22/23 08:30 02/22/23 07:25 Room Air Laboratory Results Reviewed CBC Reviewed PRP Ordered C. difficile stool test PG Care Time/CCT Total # of Minutes Spent Total Time Spent with Patient: Total time spent is greater than 50% in coordination of care (as documented) at patient's floor/unit and/or counseling patient: Coding Level of Care Code 72798 SUB INP/OBS CARE 2/35MIN Diagnoses Weakness R53.1 Type II diabetes mellitus E11.9 Systolic heart failure I50.20 Hypertension I10 Hyperlipidemia E78.5 ESRD (end stage renal disease) N18.6 Atrial fibrillation with RVR I48.91
--- NOTE | 2023-02-22 17:11 | Dialysis Progress Note ---
Date of Service February 22, 2023 Assessment & Plan (1) ESRD (end stage renal disease): Plan: continue MWF HD which he is tolerating; had 2.5 L fluid removed >some hypotension after treatment today and will lower coreg dose (2) Acute on chronic anemia: Plan: Stable but now w/ thrombocytopenia. Had 2 units packed red cells in the ER with improvement of hemoglobin from 7- >7.6. Slated to receive 2 more units packed red cells on February 12. Note that dialysis labs as OP show 01/29/23 hgb 10 w/ plts 145K and 02/05 hgb 9.2 (no plts checked). EGD not especially revealing for bleeding source >per primary service -no heparin in HD for now d/t platelets being low >> order went in for this after he'd received bolus today >>daily cbc; defer to primary service to consider further w/u of thrombo cytopenia which is moderate and worsening Admission and Anticipated Discharge Date Admission Date: February 11, 2023 Subjective seen on HD at about 11 AM; tolerating tx well; no furthe rn/v catheter very positional Review of Systems Review of Systems: All systems reviewed & are unremarkable except as noted in Subjective Physical Exam Constitutional: well developed, well nourished and + obese; no acute distress Eyes: EOM intact bilaterally ENMT: Ears: no external ear abnormality Nose: no external nose abnormality Mouth: + dry oral mucous membranes Neck: no nuchal rigidity Respiratory: normal respiratory effort Auscultation: + diminished lung sounds Cardiovascular: Rate/Rhythm: regular rate and regular rhythm Extremities: no edema Gastrointestinal (Abdomen): Inspection/Auscultation: normal bowel sounds Percussion/Palpation: abdomen soft; abdomen nontender Musculoskeletal: Extremities: strength 5/5 throughout Skin: no rashes, warm and dry Trauma: + contusion and + periorbital ecchymosis Neurologic: nair, fluent speech, no tremor Results & Data Vital Signs (Past 12 Hours) Vital Signs Temp Pulse Pulse Resp BP BP Pulse Ox 02/22/23 16:04 36.4 C L 83 17 96/62 L 95 02/22/23 12:20 36.4 C L 87 125/77 02/22/23 12:00 92 H 103/61 02/22/23 11:30 88 95/64 L 02/22/23 11:00 88 105/61 02/22/23 10:30 60 96/55 L 02/22/23 10:00 51 L 116/51 L 02/22/23 09:30 56 L 125/32 L 02/22/23 09:00 81 132/55 L 02/22/23 08:38 80 107/57 L 02/22/23 08:30 36.4 C L 81 02/22/23 07:25 36.4 C L 79 18 134/77 93 O2 Del Method 02/22/23 16:04 Room Air 02/22/23 12:20 02/22/23 12:00 02/22/23 11:30 02/22/23 11:00 02/22/23 10:30 02/22/23 10:00 02/22/23 09:30 02/22/23 09:00 02/22/23 08:38 02/22/23 08:30 02/22/23 07:25 Room Air Laboratory Results 02/22/23 08:59 02/22/23 08:59
[2023-02-22 18:35] LABS: Cdiff Toxin B Gene (2yr or >) Positive Cdiff Gene (Neg)
[2023-02-22 19:12] LABS: Cdiff Antigen Positive
[2023-02-22 19:14] LABS: Cdiff Toxin A+B Positive Cdiff Toxin (Negative)
[2023-02-22] MEDS: allopurinoL 300 MG TAB PO SCH (20:25)
[2023-02-22] MEDS: VENLAFAXINE HCL XR 75 MG CAPXR PO SCH (20:25)
[2023-02-22] MEDS: ATORVASTATIN 40 MG TAB PO SCH (20:25)
[2023-02-22] MEDS: RASPBERRY SYRUP 5 ML UDP PO SCH (23:38)
[2023-02-22] MEDS: LORazepam 1 MG TAB PO PRN (23:38)
[2023-02-22] MEDS: VANCOMYCIN HCL 125 MG/2.5ML SOLN PO SCH (23:38)
[2023-02-23] MEDS: RASPBERRY SYRUP 5 ML UDP PO SCH ×2 (06:33→11:14)
[2023-02-23] MEDS: VANCOMYCIN HCL 125 MG/2.5ML SOLN PO SCH ×2 (06:33→11:14)
[2023-02-23] MEDS ORDERED: carvediloL 6.25 MG TAB PO SCH (08:00)
[2023-02-23] MEDS: METOCLOPRAMIDE HCL 5 MG TABLET PO SCH ×2 (09:01→11:14)
[2023-02-23] MEDS: AMIODARONE 200 MG TAB PO SCH (09:02)
[2023-02-23] MEDS: PANTOprazole 40 MG TAB PO SCH (09:02)
[2023-02-23] MEDS: buPROPion SR 100 MG TABCR PO SCH (09:02)
[2023-02-23] MEDS: VALSARTAN/SACUBITRIL 26/24MG TAB PO SCH (09:02)
--- NOTE | 2023-02-23 16:45 | Discharge Summary ---
Date of Service February 23, 2023 Admission HPI Per Admitting Provider Edgar is a 62 year old male w/ PmHx ESRD on dialysis MWF, HFrEF (EF 20-25%) and cardiomyopathy, A. fib w/ RVR, HLD, Gout, T2DM, previously admitted for fall with ICU stay from 01/14-01/28 coming into the ED for increased weakness and vomiting. Patient was previously admitted for fall with hit to head followed by need for intubation and ICU stay. During last stay also had A. fib w/ RVR and ventricular tachycardia needing amiodarone ontop of carvedilol. He will follow up with cardiology outpatient for possible pacer. He was discharged to [facility] for rehabilitation where he has been since discharge. Daughter at the bedside describing course of events. Throughout time since discharge he has still been vomiting 2-10 times per day and eating very little if at all. He is only able to get down a little bit of fluid and daughter says he has had a 50lb weight loss over past few months. Vomit has been yellowish bile color in nature, per daughter, without any blood visualized. He has had some dark stools during his stay at and had progressively worsening weakness. Per daughter, PT had commented that he had been continually declining in his sessions and that he would not benefit from further PT at the time. Daughter and patient also note he has had pretty bad bruising that has led to blisters/hematomas superficial on the skin that pop and bleed. He is on dialysis MWF and follows with Dr. Le outpatient. One of the reasons they went to [facility] was due to patient being so weak he could not get to and from dialysis sessions. Denies any fevers, chills, diarrhea. On arrival vitals WNL, hemoglobin 7.0, hematocrit 22.6, platelet 114, Na 134, K 3.4, glucose 58, Ammonia 13.0. CT A&P unremarkable compared to last A&P CT. Hemoccult positive. Given 1.5L NSS bolus in ED, zofran 4mg, protonix bolus, famotidine bolus. Principal Diagnosis acute blood loss anemia esrd on dialysis c diff colitis diabetes with end organ damage Discharge Data Allergies Allergy/AdvReac Type Severity Reaction Status Date / Time promethazine [From Phenergan] AdvReac Intermediate Makes Verified 01/14/23 13:03 "mean" simvastatin [From Zocor] AdvReac Intermediate Headache Verified 01/14/23 13:03 oxycodone [From Percocet] AdvReac Mild Itching Verified 01/14/23 13:03 acetaminophen [From Percocet] AdvReac Unknown Told to Verified 01/14/23 13:03 avoid Consultations 02/11/23 17:57 ED Decision to Admit Stat 02/11/23 20:39 Consult Gastroenterology Routine Consult Nephrology Routine Procedures Performed Operation Date: 02/12/23 16:30 Actual Procedures p Esophagogastroduodenoscopy - Feroz Llanos Case, DO Ordered Studies 02/11/23 16:02 CT Abd and Pelvis [CT abd pelvis wo con] Stat Hospital Course (1) Weakness: Acute on chronic, due to acute blood loss anemia. Improved after transfusion of 4 units packed red blood cells considering GI blood loss although upper endoscopy is negative for acute source of bleeding transition from IV Protonix to oral Protonix Consideration of outpatient capsule enteroscopy OT and PT evaluations. Family appeal granted acute rehab Decreased appetite and diarrhea positive for C. difficile continue vancomycin po Reglan for diabetic gastroparesis (2) Type II diabetes mellitus: Chronic, controlled, still imparts moderate risk resumed ADA diet. Sliding scale coverage Patient with endorgan damage Gastroparesis may be playing a role in nausea vomiting and satiety issues resulting in the poor nutritional intake (3) Systolic heart failure: Chronic and stable also help to be managed by dialysis. Continue carvedilol and low-dose Entresto Last Ef was 25 % (4) Hypertension: Chronic and stable tolerating Entresto with reasonable blood pressure (5) Hyperlipidemia: Chronic and stable (6) ESRD (end stage renal disease): Chronic and stable, [facility] to manage hemodialysis requirements (7) Atrial fibrillation with RVR: Patient's acute GI bleed was influenced by his chronic anticoagulation for atrial fibrillation this is now on hold and will likely remain on hold for the short-term future until we have completed the work-up with possible capsule enteroscopy Total Time Total Time Spent Total Time Spent (In Minutes): It required greater than 30 minutes to prepare this patient for discharge Discharge Plan Discharge Items Patient Disposition: Transfer Inpatient Rehab Fac Reason For Visit: VOMITING, WEAKNESS Discharge Diagnosis: esrd c diff daibetes a fib Activity: Per Instructions section Non-emergency contact: Primary Care Provider Call non-emergency contact if: your symptoms worsen Follow-up/Referrals: [facility] [Primary Care Provider] - Diet: Carb Consistent or DM2 and Dialysis Renal Addtl Attending Provider Instructions: Patient was just diagnosed with C. difficile on 5 1 will likely need 2-week course initiating vancomycin therapy. Pending Studies at Discharge: No Stand-Alone Forms: My [facility] Skilled Items Patient informed of condition?: No DNR: Yes Discharge Level of Care: Acute rehab Communicable Disease: Yes Discharge Prognosis: Stable Lines: None Urinary Catheter: No Medications and DC Order Prescriptions: New vancomycin 1,000 mg Recon Soln 125 mg PO Q6 Qty: 56 0RF metoclopramide HCl 5 mg Tablet 2.5 mg PO TIDM Qty: 120 0RF famotidine [Pepcid] 20 mg tablet 20 mg PO DAILY Qty: 30 0RF Continued nitroglycerin 0.4 mg tablet, sublingual 0.4 mg SL UD PRN (Reason: Chest Pain) Qty: 25 1RF Rx Instructions: NEEDED FOR CHEST PAIN : ONE TABLET UNDER THE TONGUE EVERY 5 MINUTES UP TO 3 DOSES. allopurinol 300 mg tablet 300 mg PO HS Qty: 90 3RF atorvastatin 40 mg tablet 40 mg PO HS Qty: 90 3RF venlafaxine 225 mg tablet extended release 24hr 225 mg PO HS Qty: 90 3RF bupropion HCl 100 mg tablet sustained-release 12 hr 100 mg PO DAILY Qty: 30 2RF nystatin 100,000 unit/gram cream 1 appln TOP BID PRN (Reason: Skin Irritation) Patient Comments: to foot and groin ; tramadol 50 mg tablet 50 mg PO BID Qty: 60 0RF Rx Instructions: Supervising Yoandy Javed MD [facility] [id number] triamcinolone acetonide 0.1 % cream 1 applic TOP BID PRN (Reason: flare up) lorazepam 1 mg tablet 1 mg PO QPM PRN (Reason: sleep) Rx Instructions: Take 1 to 1.5 tablets by mouth every evening as needed for sleep. Entresto 24-26 mg Tablet 1 tab PO BID Qty: 60 0RF carvedilol 12.5 mg Tablet 12.5 mg PO BIDM Qty: 60 0RF acetaminophen 325 mg tablet 650 mg PO Q6H PRN (Reason: pain) Qty: 90 0RF amiodarone 200 mg tablet 200 mg PO BID Qty: 60 0RF Rx Instructions: Take 1 tablet by mouth every day lorazepam 0.5 mg Tablet 0.5 mg PO Q6H PRN (Reason: upset stomach) Qty: 10 0RF Discharge Orders: Discharge Order (Routine); Ordered 02/23/23 Ordered By: Nikolas Nguyen Admission Data Admit Date/Time: 02/11/23 18:55 Attending Provider: Nikolas Nguyen Admit Provider: George Louis Primary Care Provider: [facility] Other Providers: Anthony Naik ; Zeferino Toribio ; Radha Cristobal ; Yan Mcdonald ; Zeynep Kamara ; Lu Bran ; Keri Dozier ; Theresa Ng ; [facility] ; [facility] Coding Level of Care Code 13155 INP/OBS DISCH >30 MIN Diagnoses Weakness R53.1 Type II diabetes mellitus E11.9 Systolic heart failure I50.20 Hypertension I10 Hyperlipidemia E78.5 ESRD (end stage renal disease) N18.6 Atrial fibrillation with RVR I48.91
== END 2023-02-23 12:55 | DRG 377 ==
LOC: ED 13:59 → SUATTDRO 18:55 → 4W 18:55

== ENCOUNTER 2023-03-31 00:54 | Inpatient (IN) ==
[2023-03-31] MEDS ORDERED: NITROGLYCERIN 2% OINTMENT 30GM TUBE EXT ONE (01:27)
[2023-03-31] MEDS ORDERED: FUROSEMIDE 40 MG/4 ML VIAL IV ONE (01:27)
[2023-03-31 01:29] LABS: Basophils # (auto) 0.07 K/uL (0-0.2); Basophils % (auto) 0.7 %; Eosinophils # (auto) 0.04 K/uL (0-0.50); Eosinophils % (auto) 0.4 %; Hematocrit (blood only) 30.9 % (42.0-52.0); Hemoglobin 9.7 g/dl (14.0-18.0); Immature Granulocytes # (auto) 0.04 K/uL (0.01-0.20); Immature Granulocytes % (auto) 0.4 %; Lymphocytes # (auto) 1.68 K/uL (1.2-3.4); Lymphocytes % (auto) 17.3 %; Mean Corpuscular Hemoglobin 30.7 pg (25.0-34.0); Mean Corpuscular Hgb Conc 31.4 g/dL (32.0-36.0); Mean Corpuscular Volume 97.8 fL (80.0-100.0); Mean Platelet Volume 10.4 fL (9.4-12.4); Monocytes % (auto) 7.2 %; Neutrophils # (auto) 7.19 K/uL (1.40-6.50); Platelet Count 170 K/uL (130-400); RDW Coefficient of Variation 18.1 % (11.5-14.5); RDW Standard Deviation 65.7 fL (36.4-46.3); Red Blood Count 3.16 M/uL (4.70-6.10); White Blood Count 9.72 K/ul (4.8-10.8)
[2023-03-31] MEDS ORDERED: LORazepam 0.5 MG TAB PO STA (01:33)
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
[2023-03-31 01:44] LABS: Albumin Globulin Ratio 0.9 (0.9-2); Albumin Level 2.5 gm/dl (3.4-5.0); BUN Creatinine Ratio 6.1 (10-20); Bilirubin,Total 0.6 mg/dl (0.2-1.0); Calcium 8.9 mg/dl (8.6-10.3); Creatinine Clr Calc Pharmacy 22.5 ml/min; Est GFR (African American) 18.4 ml/min; Est GFR (Non-African American) 15.9 ml/min; Globulin 2.8 gm/dl (2.5-4.0); Potassium 4.4 mmol/L (3.5-5.1); Total Protein 5.3 gm/dl (6.0-8.3)
[2023-03-31 01:52] LABS: Troponin I High Sensitivity 30.6 pg/ml (0-20)
[2023-03-31 01:55] LABS: INR 1.1 (0.9-1.1); Partial Thromboplastin Ratio 1.1; Partial Thromboplastin Time 30.8 Seconds (21.0-31.0); Prothrombin Time 11.6 Seconds (9.0-12.0)
[2023-03-31 02:00] LABS: Base Excess VBG 7.7 mEq/L; HCO3 VBG 35 mmol/L; Oxygen Saturation VBG < 60.0 %; PCO2 VBG 59 mmHg (38-50); PO2 VBG 33 mmHg; pH VBG 7.38 (7.36-7.41)
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
[2023-03-31] MEDS ORDERED: CARBOHYDRATES FOR HYPOGLYCEMIA PO PRN (03:53)
[2023-03-31] MEDS ORDERED: GLUCAGON FOR INJ 1 MG VIAL SQ PRN (03:53)
[2023-03-31] MEDS ORDERED: NITROGLYCERIN SL 0.4 MG/TAB TAB SL PRN (03:53)
[2023-03-31] MEDS ORDERED: DEXTROSE 50% 50 ML SYRINGE IV PRN (03:53)
[2023-03-31] MEDS ORDERED: ONDANSETRON 4 MG OD TAB PO PRN (03:53)
[2023-03-31] MEDS ORDERED: GLUCOSE 40% GEL 15 GM TUBE PO PRN (03:53)
[2023-03-31] MEDS ORDERED: GLUCOSE 10 TAB/TUBE PO PRN (03:53)
[2023-03-31] MEDS ORDERED: ONDANSETRON INJ 2 MG/ML 2 ML VIAL IV PRN (03:53)
--- NOTE | 2023-03-31 07:28 | XRay Report ---
SINGLE VIEW CHEST CLINICAL HISTORY: Atypical chest pain. Dyspnea. FINDINGS: An AP, portable, upright chest radiograph is compared to study dated 02/14/2023. The examina tion is degraded by portable technique and apical lordotic positioning. A right internal jugular cent ral venous catheter is unchanged in position. The patient is status post midline sternotomy. The hear t is enlarged noting atherosclerotic calcification of the thoracic aorta. There is pulmonary vascular congestion. Scarring/atelectasis is noted at the lung bases. No large pleural effusion or pneumotho rax is seen. The skeletal structures are osteopenic. The bony thorax is grossly intact. IMPRESSION: Cardiomegaly with pulmonary vascular congestion. ACT 112: Negative or not required by law. Electronically signed by: Lane Escobar M.D. 03/31/2023 7:26 AM
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
[2023-03-31] MEDS ORDERED: SODIUM CHLORIDE 0.9% 1000ML 1,000 ML IV PRN (09:13)
[2023-03-31] MEDS ORDERED: EPOETIN ALFA 10,000 UNITS/ML VIAL IV ONE (09:13)
[2023-03-31] MEDS: SUCRALFATE 1 GM TAB PO SCH ×4 (09:17→21:26)
[2023-03-31] MEDS: METOCLOPRAMIDE HCL 5 MG TABLET PO SCH ×3 (09:17→18:16)
[2023-03-31] MEDS: AMIODARONE 200 MG TAB PO SCH ×2 (09:19→21:26)
[2023-03-31] MEDS: FAMOTIDINE 20 MG TAB PO SCH (09:19)
[2023-03-31] MEDS: carvediloL 12.5 MG TAB PO SCH ×2 (09:19→18:15)
[2023-03-31] MEDS: SACCHAROMYCES BOULARDII 250 MG CAP PO SCH ×2 (09:20→21:26)
[2023-03-31] MEDS: VALSARTAN/SACUBITRIL 26/24MG TAB PO SCH ×2 (09:20→21:27)
[2023-03-31] MEDS: buPROPion SR 100 MG TABCR PO SCH (09:20)
[2023-03-31] MEDS: INSULIN ASPART PER UNIT CHARGE SC SCH ×4 (09:21→21:42)
--- NOTE | 2023-03-31 10:42 | Communication Note ---
Date of Service: March 31, 2023 Please see today's H+P for full plan except as described here: Nephrology on board, ultimately anticipate need for daily dialysis for some time. Continue to monitor fluid status, weights.
[2023-03-31] MEDS: ATORVASTATIN 40 MG TAB PO SCH (21:25)
[2023-03-31] MEDS: VENLAFAXINE HCL XR 75 MG CAPXR PO SCH (21:25)
[2023-03-31] MEDS: allopurinoL 100 MG TAB PO SCH (21:26)
[2023-03-31] MEDS: NEPHROCAPS PO SCH (21:26)
[2023-04-01 06:31] LABS: Hematocrit (blood only) 26.7 % (42.0-52.0); Hemoglobin 8.7 g/dl (14.0-18.0); Mean Corpuscular Hemoglobin 31.8 pg (25.0-34.0); Mean Corpuscular Hgb Conc 32.6 g/dL (32.0-36.0); Mean Corpuscular Volume 97.4 fL (80.0-100.0); Mean Platelet Volume 10.9 fL (9.4-12.4); Platelet Count 112 K/uL (130-400); RDW Coefficient of Variation 17.7 % (11.5-14.5); RDW Standard Deviation 62.6 fL (36.4-46.3); Red Blood Count 2.74 M/uL (4.70-6.10)
[2023-04-01] MEDS: INSULIN ASPART PER UNIT CHARGE SC SCH ×4 (07:42→20:36)
[2023-04-01] MEDS ORDERED: EPOETIN ALFA 20,000 UNITS/ML VIAL IV ONE (08:05)
[2023-04-01] MEDS ORDERED: SODIUM CHLORIDE 0.9% 1000ML 1,000 ML IV PRN (08:05)
--- NOTE | 2023-04-01 08:23 | Hospitalist Progress Note ---
Date of Service April 01, 2023 Assessment & Plan (1) Acute respiratory failure with hypoxia and hypercarbia: Plan: Secondary to acute CHF exacerbation Patient with a history of HFrEF with the most recent ejection fraction 12/2022 of 20-25%, with associated severe global hypokinesis of the left ventricle Noted to be significantly volume overloaded on admission with need for supplemental oxygen, which is now improving Weight 100.4 kgs on admission>93.5 kgs today Has been receiving daily dialysis, removed 4 L both yesterday and today, will have dialysis again tomorrow Patient is an uric, diuretics not indicated Some amount of room for improvement in diet at home regarding sodium, however patient's daughter is relatively mindful of foods and reads labels. Recommended writing down total sodium intake with each food to try to find the "offending foods" [facility] is following, appreciate recommendations (2) HFrEF (heart failure with reduced ejection fraction): Plan: See above (3) V-tach: Plan: Has a history of ventricular tachycardia, is on amiodarone, has been on telemetry without evidence of ventricular tachycardia Ventricular tachycardia episodes are in the setting of low EF, continue to follow with cardiology (4) ESRD (end stage renal disease): Plan: Typically on dialysis MWF, nephrology following and appreciate recommendations (5) CAD (coronary artery disease): Plan: History of CAD s/p bypass in 2010 Relatively recent cardiomyopathy (sometime between September 2022 in November 2022) Most recent ejection fraction 20-25% on Echocardiogram 12/2022, likely ischemic cardiomyopathy Continue statin, Entresto, Coreg Not on aspirin due to recent GI bleeding Follow-up with Cardiology (6) Atrial fibrillation: Plan: History of, no RVR this admission Not on systemic AC due to ongoing evaluation of GI bleeding in January Continue amiodarone (7) Type II diabetes mellitus: Plan: Sliding scale insulin, BSGs have been well controlled in-house Plan Patient is undergoing daily dialysis, expected at least to have daily dialysis treatments through Wednesday. PT and OT ordered to help evaluate patient, as he continues to clinically improve I suspect he will require rehab on discharge for deconditioning and continued medical monitoring for fluid status changes. Nutrition asked to help support patient and family through low sodium diet and fluid restriction of 1.2L daily. Long discussion today about low sodium diet with patient and daughter; daughter has relatively good insight into low sodium diet but did discuss further looking at labels for all processed foods in particular and being specific with serving sizes. Admission and Anticipated Discharge Date Admission Date: March 31, 2023 Subjective Patient without any acute events overnight. Patient reports that his breathing is somewhat better now than it was. Oxygenating better on less supplemental oxygen. No complaints of chest pain, abdominal pain. Daughter prepares meals and tries to avoid sodium. Review of Systems Review of Systems: All systems reviewed & are unremarkable except as noted in Subjective Physical Exam Constitutional: WD/WN, vitals as above Respiratory: Normal respiratory effort, bibasilar crackles Cardiovascular: RRR, no murmur, no edema Gastrointestinal (Abdomen): normal bowel sounds, soft, nontender, no hepatosplenomegaly Skin: no rashes, warm and dry Psychiatric: A+Ox3, euthymic affect Results & Data Results & Data Vital Signs (Past 12 Hours) Vital Signs Temp Pulse Pulse Resp BP Pulse Ox Pulse Ox 04/01/23 08:00 36.8 C 88 21 161/70 H 99 04/01/23 04:00 99 04/01/23 03:00 36.3 C L 82 21 166/91 H 99 03/31/23 22:01 77 03/31/23 23:00 36.4 C L 81 21 154/83 H 100 O2 Del Method O2 Del Method O2 Flow Rate O2 Flow Rate 04/01/23 08:00 Nasal Cannula 2 04/01/23 04:00 Nasal Cannula 3 04/01/23 03:00 Nasal Cannula 4 03/31/23 22:01 03/31/23 23:00 Nasal Cannula 5 PG Care Time/CCT Total # of Minutes Spent Total Time Spent with Patient: Total time spent is greater than 50% in coordination of care (as documented) at patient's floor/unit and/or counseling patient: Coding Level of Care Code 82892 SUB INP/OBS CARE 3/50MIN Diagnoses Acute respiratory failure with hypoxia and hypercarbia J96.01; J96.02 HFrEF (heart failure with reduced ejection fraction) I50.20 V-tach I47.20 ESRD (end stage renal disease) N18.6 CAD (coronary artery disease) I25.10 Atrial fibrillation I48.91 Type II diabetes mellitus E11.9
[2023-04-01 08:48] LABS: Albumin Level 2.3 gm/dl (3.4-5.0); Bilirubin,Total 0.8 mg/dl (0.2-1.0); Calcium 8.6 mg/dl (8.6-10.3); Magnesium 1.7 mg/dl (1.7-2.4); Potassium 3.7 mmol/L (3.5-5.1)
[2023-04-01 08:54] LABS: BUN Creatinine Ratio 4.8 (10-20); Creatinine Clr Calc Pharmacy 32.2 ml/min; Est GFR (African American) 30.4 ml/min; Est GFR (Non-African American) 26.2 ml/min; Globulin 2.4 gm/dl (2.5-4.0); Total Protein 4.7 gm/dl (6.0-8.3)
[2023-04-01] MEDS: SUCRALFATE 1 GM TAB PO SCH ×4 (09:28→19:50)
[2023-04-01] MEDS: carvediloL 12.5 MG TAB PO SCH ×2 (09:28→16:51)
[2023-04-01] MEDS: METOCLOPRAMIDE HCL 5 MG TABLET PO SCH ×3 (09:28→16:51)
[2023-04-01] MEDS: buPROPion SR 100 MG TABCR PO SCH (09:29)
[2023-04-01] MEDS: VALSARTAN/SACUBITRIL 26/24MG TAB PO SCH ×2 (09:29→19:50)
[2023-04-01] MEDS: SACCHAROMYCES BOULARDII 250 MG CAP PO SCH ×2 (09:29→19:52)
[2023-04-01] MEDS: AMIODARONE 200 MG TAB PO SCH ×2 (09:29→19:50)
--- NOTE | 2023-04-01 16:49 | Dialysis Progress Note ---
Date of Service April 01, 2023 Assessment & Plan (1) ESRD (end stage renal disease): Plan: ESRD on HD admitted with volume overload. He had 4L off each treatment x 2 days in a row now -likely to need daily HD for some time -2K bath -continue dialysis diet and 1.2 L daily FR >>recommend dietary teaching re 1.2 L FR in hospital and at home >consider PT eval to monitor for orthostatic issues given hx of falls and autonomic dysfunction (2) Anemia of chronic disease: Plan: stable/acceptable hgb for now w/ recent thrombocytopenia past 6-8 wks. t sat as OP 33% 03/19 -continue to avoid heparin w/ HD; non rx'd on HD or on the floors -monitor CBC q48 hrs at least > note thrombocytopenia recurred -epo w/ HD; no venofer needed currently Admission and Anticipated Discharge Date Admission Date: March 31, 2023 Subjective seen on HD at about 1215 tihs PM; treatment was going well; he tolerated 4 L fluid off again today. pt does tell me 1.2 L fluid limit is unreasonable. he voids 2X weekly. no sob, no dry heaves or n/v. no uncontrolled pain. Review of Systems Review of Systems: All systems reviewed & are unremarkable except as noted in Subjective Physical Exam Constitutional: well developed, well nourished and + obese; no acute distress Eyes: EOM intact bilaterally ENMT: Ears: no external ear abnormality Nose: no external nose abnormality Mouth: + dry oral mucous membranes Neck: no nuchal rigidity Respiratory: normal respiratory effort Auscultation: + diminished lung sounds Cardiovascular: Rate/Rhythm: regular rate and regular rhythm Extremities: no edema Gastrointestinal (Abdomen): Inspection/Auscultation: normal bowel sounds Percussion/Palpation: abdomen soft; abdomen nontender Musculoskeletal: Extremities: strength 5/5 throughout Skin: no rashes, warm and dry Psychiatric: Orientation: alert and oriented x 3 Speech: normal rate/rhythm/volume of speech (speaks softly at baseline) Affect: + flat affect Results & Data Vital Signs (Past 12 Hours) Vital Signs Temp Pulse Pulse Pulse Resp BP BP 04/01/23 16:09 36.6 C 89 20 129/88 04/01/23 15:00 90 04/01/23 13:33 36.9 C 04/01/23 13:10 89 168/78 H 06/08/23 13:06 81 171/81 H 04/01/23 13:00 81 171/81 H 04/01/23 12:30 87 172/83 H 04/01/23 12:00 88 160/73 H 04/01/23 11:30 89 167/103 H 04/01/23 11:00 89 153/97 H 04/01/23 10:30 92 H 157/74 H 04/01/23 10:15 88 143/98 H 04/01/23 08:00 84 04/01/23 08:00 04/01/23 09:30 89 170/87 H 04/01/23 08:58 36.8 C 89 20 164/73 H 04/01/23 09:02 36.8 C 89 165/90 H 04/01/23 09:00 36.8 C 89 04/01/23 08:00 36.8 C 88 21 161/70 H Pulse Ox O2 Del Method O2 Flow Rate 04/01/23 16:09 100 Room Air 04/01/23 15:00 04/01/23 13:33 04/01/23 13:10 04/01/23 13:06 04/01/23 13:00 04/01/23 12:30 04/01/23 12:00 04/01/23 11:30 04/01/23 11:00 04/01/23 10:30 04/01/23 10:15 04/01/23 08:00 04/01/23 08:00 Nasal Cannula 3 04/01/23 09:30 04/01/23 08:58 Nasal Cannula 3 04/01/23 09:02 04/01/23 09:00 04/01/23 08:00 99 Nasal Cannula 2 Laboratory Results 04/01/23 05:50 04/01/23 05:50
[2023-04-01] MEDS: LORazepam 1 MG TAB PO PRN (19:49)
[2023-04-01] MEDS: ATORVASTATIN 40 MG TAB PO SCH (19:51)
[2023-04-01] MEDS: VENLAFAXINE HCL XR 75 MG CAPXR PO SCH (19:51)
[2023-04-01] MEDS: allopurinoL 100 MG TAB PO SCH (19:51)
[2023-04-01] MEDS: NEPHROCAPS PO SCH (19:52)
--- NOTE | 2023-04-02 05:21 | Electrocardiogram Report ---
Test Reason : Blood Pressure : / mmHG Vent. Rate : 105 BPM Atrial Rate : 000 BPM P-R Int : 000 ms QRS Dur : 114 ms QT Int : 382 ms P-R-T Axes : 000 -04 069 degrees QTc Int : 504 ms Poor data quality, interpretation may be adversely affected Indeterminate rhythm due to artifact Septal infarct , age undetermined Possible Inferior infarct Abnormal ECG When compared with ECG of 12-FEB-2023 08:09, Significant artifact is now present Confirmed by Dre Almonte ([id number]) on 04/02/2023 5:20:53 AM Referred By: REFERRED SELF Confirmed By:Dre Almonte
--- NOTE | 2023-04-02 08:05 | Hospitalist Progress Note ---
Date of Service April 02, 2023 Assessment & Plan (1) Acute respiratory failure with hypoxia and hypercarbia: Plan: Secondary to acute CHF exacerbation Patient with a history of HFrEF with the most recent ejection fraction 12/2022 of 20-25%, with associated severe global hypokinesis of the left ventricle Noted to be significantly volume overloaded on admission with need for supplemental oxygen, symptoms improving generally however little bit of a backslide today after dyspneic episode overnight Weight 100.4 kgs on admission > 90.6 kg today Has been receiving daily dialysis, to continue through at least Wednesday per nephrology [facility] nephrology Dr. Radha Cristobal is following, appreciate recommendations After discussion with patient's today, she remembered that he had had some very salty peanuts in the days leading up to admission, she is suspicious that this is what "pushed him over the edge" and she has thrown them away (900mg Na/oz of nuts) (2) HFrEF (heart failure with reduced ejection fraction): Plan: See above (3) V-tach: Plan: Has a history of ventricular tachycardia, is on amiodarone, has been on teleme try without evidence of ventricular tachycardia This history is in the setting of low EF 20-25%; continue to follow with Cardiology (4) ESRD (end stage renal disease): Plan: Typically on dialysis MWF, currently undergoing daily dialysis due to fluid overload, nephrology following and appreciate recommendations (5) CAD (coronary artery disease): Plan: History of CAD s/p bypass in 2010 Relatively recent cardiomyopathy per cardiology notes (sometime between September 2022 in November 2022) Most recent ejection fraction 20-25% on Echocardiogram 12/2022, likely ischemic cardiomyopathy Continue statin, Entresto, Coreg Not on aspirin due to recent GI bleeding Follow-up with Cardiology (6) Atrial fibrillation: Plan: History of, no RVR this admission Not on systemic AC due to ongoing evaluation of GI bleeding in January Continue amiodarone (7) Type II diabetes mellitus: Plan: Sliding scale insulin, BSGs have been well controlled in-house Plan Patient is undergoing daily dialysis, expected at least to have daily dialysis treatments through Wednesday, perhaps longer. PT and OT ordered to help evaluate patient, as he continues to clinically improve I suspect he may require rehab vs. home health services on discharge for deconditioning and continued medical monitoring for fluid status changes. Nutrition asked to help support patient and family through low sodium diet and fluid restriction of 1.2L daily. Admission and Anticipated Discharge Date Admission Date: March 31, 2023 Subjective Overnight while patient was lying flat after being cleaned up by nursing staff, he notes that he was feeling very short of breath. This resolved with sitting up. After this episode, patient's oxygen needed to be turned up to 5 L. Patient denies other complaints. Review of Systems Review of Systems: All systems reviewed & are unremarkable except as noted in Subjective Physical Exam Constitutional: WD/WN, vitals as above Respiratory: Normal respiratory effort, bibasilar crackles Cardiovascular: Regular rate and rhythm, no murmurs, bilateral lower extremity 2+ pitting edema Skin: no rashes, warm and dry Psychiatric: A+Ox3, euthymic affect Results & Data Results & Data Vital Signs (Past 12 Hours) Vital Signs Temp Pulse Pulse Resp BP Pulse Ox O2 Del Method 04/02/23 07:11 94 H 04/02/23 06:29 90 Nasal Cannula 04/02/23 06:28 85 L Nasal Cannula 04/02/23 03:00 36.7 C 88 16 157/84 H 92 Nasal Cannula 04/01/23 23:31 87 04/01/23 23:00 36.7 C 87 18 147/84 H 93 Nasal Cannula 04/01/23 21:01 Nasal Cannula O2 Flow Rate 04/02/23 07:11 04/02/23 06:29 3.5 04/02/23 06:28 2 04/02/23 03:00 2 04/01/23 23:31 04/01/23 23:00 2 04/01/23 21:01 3 PG Care Time/CCT Total # of Minutes Spent Total Time Spent with Patient: Total time spent is greater than 50% in coordination of care (as documented) at patient's floor/unit and/or counseling patient: Coding Level of Care Code 38916 SUB INP/OBS CARE 3/50MIN Diagnoses Acute respiratory failure with hypoxia and hypercarbia J96.01; J96.02 HFrEF (heart failure with reduced ejection fraction) I50.20 V-tach I47.20 ESRD (end stage renal disease) N18.6 CAD (coronary artery disease) I25.10 Atrial fibrillation I48.91 Type II diabetes mellitus E11.9
[2023-04-02] MEDS: AMIODARONE 200 MG TAB PO SCH ×2 (08:28→20:24)
[2023-04-02] MEDS: carvediloL 12.5 MG TAB PO SCH ×2 (08:28→18:00)
[2023-04-02] MEDS: METOCLOPRAMIDE HCL 5 MG TABLET PO SCH ×3 (08:28→17:59)
[2023-04-02] MEDS: buPROPion SR 100 MG TABCR PO SCH (08:28)
[2023-04-02] MEDS: SACCHAROMYCES BOULARDII 250 MG CAP PO SCH ×2 (08:29→20:24)
[2023-04-02] MEDS: FAMOTIDINE 20 MG TAB PO SCH (08:29)
[2023-04-02] MEDS: VALSARTAN/SACUBITRIL 26/24MG TAB PO SCH ×2 (08:29→20:25)
[2023-04-02] MEDS: SUCRALFATE 1 GM TAB PO SCH ×4 (08:29→20:23)
[2023-04-02] MEDS: INSULIN ASPART PER UNIT CHARGE SC SCH ×4 (08:36→20:47)
[2023-04-02 10:25] LABS: Albumin Globulin Ratio 0.9 (0.9-2); Albumin Level 2.5 gm/dl (3.4-5.0); BUN Creatinine Ratio 3.5 (10-20); Bilirubin,Total 0.8 mg/dl (0.2-1.0); Calcium 8.7 mg/dl (8.6-10.3); Creatinine Clr Calc Pharmacy 39.8 ml/min; Est GFR (Non-African American) 34.5 ml/min; Globulin 2.8 gm/dl (2.5-4.0); Magnesium 1.7 mg/dl (1.7-2.4); Potassium 3.6 mmol/L (3.5-5.1); Total Protein 5.3 gm/dl (6.0-8.3)
--- NOTE | 2023-04-02 17:47 | Dialysis Progress Note ---
Date of Service April 02, 2023 Assessment & Plan (1) ESRD (end stage renal disease): Plan: ESRD on HD admitted with volume overload. He had 4L off each treatment x 3 days in a row now -likely to need daily HD for some time >> his 02 needs were lower this am but unfortunately still overloaded >dialysis tomorrow -2K bath today -continue dialysis diet and 1.2 L daily FR >>recommend dietary teaching re 1.2 L FR in hospital and at home >consider PT eval to monitor for orthostatic issues given hx of falls and autonomic dysfunction (2) Anemia of chronic disease: Plan: stable/acceptable hgb for now w/ recent thrombocytopenia past 6-8 wks. t sat as OP 33% 03/19 -continue to avoid heparin w/ HD; non rx'd on HD or on the floors -monitor CBC q48 hrs at least > note thrombocytopenia recurred -epo w/ HD; no venofer needed currently Admission and Anticipated Discharge Date Admission Date: March 31, 2023 Subjective seen 1215 on HD; restless today, more dyspneic; hates fluid limit, hard to find comfortable spot on HD; no N Review of Systems Review of Systems: All systems reviewed & are unremarkable except as noted in Subjective Physical Exam Constitutional: well developed, well nourished and + obese; no acute distress Eyes: EOM intact bilaterally ENMT: Ears: no external ear abnormality Nose: no external nose abnormality Mouth: + dry oral mucous membranes Neck: no nuchal rigidity Respiratory: normal respiratory effort Auscultation: + diminished lung sounds Cardiovascular: Rate/Rhythm: regular rate and regular rhythm Extremities: no edema Gastrointestinal (Abdomen): Inspection/Auscultation: normal bowel sounds Percussion/Palpation: abdomen soft; abdomen nontender Musculoskeletal: Extremities: strength 5/5 throughout Skin: no rashes, warm and dry Psychiatric: Orientation: alert and oriented x 3 Speech: normal rate/rhythm/volume of speech (speaks softly at baseline) Affect: + flat affect Results & Data Vital Signs (Past 12 Hours) Vital Signs Temp Pulse Pulse Pulse Resp BP BP 04/02/23 15:40 36.3 C L 82 20 137/85 04/02/23 13:00 82 106/62 04/02/23 13:10 82 04/02/23 13:38 36.4 C L 82 20 106/63 04/02/23 12:30 81 130/59 L 04/02/23 12:00 82 118/90 04/02/23 11:30 83 150/87 H 04/02/23 11:00 88 141/78 H 04/02/23 10:30 86 128/65 04/02/23 08:00 04/02/23 10:00 36.6 C 99 H 123/73 04/02/23 09:30 100 H 150/58 H 04/02/23 09:00 71 148/97 H 04/02/23 08:55 103 H 154/93 H 04/02/23 09:50 36.6 C 103 H 04/02/23 07:26 36.6 C 99 H 20 143/80 H 04/02/23 07:11 94 H 04/02/23 06:29 04/02/23 06:28 Pulse Ox O2 Del Method O2 Flow Rate 04/02/23 15:40 98 Nasal Cannula 5.0 04/02/23 13:00 04/02/23 13:10 04/02/23 13:38 98 Nasal Cannula 5 04/02/23 12:30 04/02/23 12:00 04/02/23 11:30 04/02/23 11:00 04/02/23 10:30 04/02/23 08:00 Nasal Cannula 4 04/02/23 10:00 04/02/23 09:30 04/02/23 09:00 04/02/23 08:55 04/02/23 09:50 04/02/23 07:26 95 Nasal Cannula 3.5 04/02/23 07:11 04/02/23 06:29 90 Nasal Cannula 3.5 04/02/23 06:28 85 L Nasal Cannula 2 Laboratory Results 04/01/23 05:50 04/02/23 09:11
[2023-04-02] MEDS: NEPHROCAPS PO SCH (20:25)
[2023-04-02] MEDS: allopurinoL 100 MG TAB PO SCH (20:25)
[2023-04-02] MEDS: VENLAFAXINE HCL XR 75 MG CAPXR PO SCH (20:26)
[2023-04-02] MEDS: LORazepam 1 MG TAB PO PRN (20:31)
[2023-04-02] MEDS: ATORVASTATIN 40 MG TAB PO SCH (21:26)
--- NOTE | 2023-04-03 06:40 | Electrocardiogram Report ---
Test Reason : Blood Pressure : / mmHG Vent. Rate : 084 BPM Atrial Rate : 084 BPM P-R Int : 238 ms QRS Dur : 122 ms QT Int : 428 ms P-R-T Axes : 071 041 126 degrees QTc Int : 505 ms Sinus rhythm with 1st degree A-V block Septal infarct , age undetermined Non-specific intra-ventricular conduction block Abnormal ECG When compared with ECG of 31-MAR-2023 01:01, prior ECG had significant artifact Confirmed by Dre Almonte ([id number]) on 04/03/2023 6:40:23 AM Referred By: REFERRED SELF Confirmed By:Dre Almonte
[2023-04-03] MEDS ORDERED: SODIUM CHLORIDE 0.9% 1000ML 1,000 ML IV PRN (07:00)
[2023-04-03] MEDS ORDERED: EPOETIN ALFA 20,000 UNITS/ML VIAL IV ONE (07:00)
--- NOTE | 2023-04-03 07:28 | Hospitalist Progress Note ---
Date of Service April 03, 2023 Assessment & Plan (1) Acute respiratory failure with hypoxia and hypercarbia: Plan: Secondary to acute CHF exacerbation History of HFrEF with the most recent ejection fraction 12/2022 of 20-25%, with associated severe global hypokinesis of the left ventricle Noted to be significantly volume overloaded on admission with need for supplemental oxygen, symptoms improving and now on 4LNC improved from yesterday Weight 100.4 kgs on admission > 89.5 kg ("dry" weight around 84kg on discharge 02/23/23) Has been receiving daily dialysis, removing ~4L ultrafiltrate daily [facility] nephrology Dr. Radha Cristobal is following, appreciate recommendations Dietary modification and fluid restriction 1.2L daily discussed with , she has good insight into care needs of patient and has been able to self-identify much room for improvement on discharge (2) HFrEF (heart failure with reduced ejection fraction): Plan: See above (3) V-tach: Plan: Has a history of ventricular tachycardia, is on amiodarone, has been on telemetry without evidence of ventricular tachycardia This history is in the setting of low EF 20-25%; continue to follow with Cardiology (4) ESRD (end stage renal disease): Plan: Typically on dialysis MWF; currently undergoing daily dialysis due to fluid overload, nephrology following and appreciate recommendations (5) CAD (coronary artery disease): Plan: History of CAD s/p bypass in 2010 Most recent ejection fraction 20-25% on Echocardiogram 12/2022, likely ischemic cardiomyopathy Continue statin, Entresto, Coreg Not on aspirin due to recent GI bleeding, has outpatient GI follow up (6) Atrial fibrillation: Plan: History of, no RVR this admission Not on systemic AC due to ongoing evaluation of GI bleeding in January Continue amiodarone (7) Type II diabetes mellitus: Plan: Sliding scale insulin, BSGs have been well controlled in-house Plan Patient is undergoing daily dialysis. PT and OT ordered to help evaluate patient, as he continues to clinically improve I suspect he may require rehab vs. home health services on discharge for deconditioning and continued medical monitoring for fluid status changes. Admission and Anticipated Discharge Date Admission Date: March 31, 2023 Subjective Patient without any acute events overnight. He does think that his breathing is better today than yesterday. Review of Systems Review of Systems: All systems reviewed & are unremarkable except as noted in Subjective Physical Exam Constitutional: WD/WN, vitals as above Respiratory: poor air movement throughout, saturating to 100% on 4LNC Cardiovascular: Regular rate and rhythm, no murmurs, bilateral lower extremity 2+ pitting edema Skin: no rashes, warm and dry Psychiatric: A+Ox3, euthymic affect Results & Data Results & Data Vital Signs (Past 12 Hours) Vital Signs Temp Pulse Pulse Resp BP Pulse Ox O2 Del Method 04/03/23 07:24 82 04/03/23 03:34 36.6 C 81 18 148/78 H 94 Nasal Cannula 04/02/23 23:10 80 04/02/23 23:06 36.4 C L 80 20 144/84 H 99 Nasal Cannula 04/02/23 21:00 Nasal Cannula 04/02/23 19:41 36.8 C 81 20 135/80 95 Nasal Cannula O2 Flow Rate 04/03/23 07:24 04/03/23 03:34 5 04/02/23 23:10 04/02/23 23:06 5 04/02/23 21:00 5 04/02/23 19:41 5 PG Care Time/CCT Total # of Minutes Spent Total Time Spent with Patient: Total time spent is greater than 50% in coordination of care (as documented) at patient's floor/unit and/or counseling patient: Coding Level of Care Code 62615 SUB INP/OBS CARE 3/50MIN Diagnoses Acute respiratory failure with hypoxia and hypercarbia J96.01; J96.02 HFrEF (heart failure with reduced ejection fraction) I50.20 V-tach I47.20 ESRD (end stage renal disease) N18.6 CAD (coronary artery disease) I25.10 Atrial fibrillation I48.91 Type II diabetes mellitus E11.9
[2023-04-03 07:46] LABS: Anion Gap 4 (3-11); Blood Urea Nitrogen 9 mg/dl (6-23); Calcium 9.1 mg/dl (8.6-10.3); Carbon Dioxide 31 mmol/L (21-32); Chloride 100 mmol/L (98-107); Creatinine Clr Calc Pharmacy 34.9 ml/min; Est GFR (African American) 34.3 ml/min; Est GFR (Non-African American) 29.6 ml/min; Glucose 80 mg/dl (70-99(Fasting)); Magnesium 1.8 mg/dl (1.7-2.4); Sodium 135 mmol/L (136-145)
[2023-04-03] MEDS: INSULIN ASPART PER UNIT CHARGE SC SCH ×4 (07:52→20:27)
[2023-04-03] MEDS: VALSARTAN/SACUBITRIL 26/24MG TAB PO SCH ×2 (07:55→19:59)
[2023-04-03] MEDS: SACCHAROMYCES BOULARDII 250 MG CAP PO SCH ×2 (07:55→19:58)
[2023-04-03] MEDS: carvediloL 12.5 MG TAB PO SCH ×2 (07:56→17:04)
[2023-04-03] MEDS: AMIODARONE 200 MG TAB PO SCH ×2 (07:56→19:58)
[2023-04-03] MEDS: SUCRALFATE 1 GM TAB PO SCH ×4 (07:56→19:57)
[2023-04-03] MEDS: buPROPion SR 100 MG TABCR PO SCH (07:56)
[2023-04-03] MEDS: METOCLOPRAMIDE HCL 5 MG TABLET PO SCH ×3 (07:57→17:03)
[2023-04-03 08:21] LABS: Hematocrit (blood only) 31.7 % (42.0-52.0); Hemoglobin 10.1 g/dl (14.0-18.0); Mean Corpuscular Hemoglobin 30.8 pg (25.0-34.0); Mean Corpuscular Hgb Conc 31.9 g/dL (32.0-36.0); Mean Corpuscular Volume 96.6 fL (80.0-100.0); Platelet Count 139 K/uL (130-400); RDW Coefficient of Variation 17.6 % (11.5-14.5); RDW Standard Deviation 62.5 fL (36.4-46.3); Red Blood Count 3.28 M/uL (4.70-6.10); White Blood Count 7.83 K/ul (4.8-10.8)
[2023-04-03] MEDS: LORazepam 1 MG TAB PO PRN (19:57)
[2023-04-03] MEDS: VENLAFAXINE HCL XR 75 MG CAPXR PO SCH (19:58)
[2023-04-03] MEDS: allopurinoL 100 MG TAB PO SCH (19:59)
[2023-04-03] MEDS: NEPHROCAPS PO SCH (19:59)
[2023-04-03] MEDS: ATORVASTATIN 40 MG TAB PO SCH (19:59)
--- NOTE | 2023-04-04 06:00 | Electrocardiogram Report ---
Test Reason : Blood Pressure : / mmHG Vent. Rate : 097 BPM Atrial Rate : 097 BPM P-R Int : 250 ms QRS Dur : 126 ms QT Int : 412 ms P-R-T Axes : 001 056 116 degrees QTc Int : 523 ms Sinus rhythm with 1st degree A-V block Non-specific intra-ventricular conduction block Nonspecific T wave abnormality Abnormal ECG When compared with ECG of 01-APR-2023 05:19, No significant change Confirmed by Dre Almonte ([id number]) on 04/04/2023 6:00:10 AM Referred By: REFERRED SELF Confirmed By:Dre Almonte
--- NOTE | 2023-04-04 08:46 | Hospitalist Progress Note ---
Date of Service April 04, 2023 Assessment & Plan (1) Acute respiratory failure with hypoxia and hypercarbia: Plan: Secondary to acute CHF exacerbation History of HFrEF with the most recent ejection fraction 12/2022 of 20-25%, with associated severe global hypokinesis of the left ventricle Noted to be significantly volume overloaded on admission with need for supplemental oxygen, symptoms improving and now on room air at rest Weight 100.4 kgs on admission > 88.1 kg (weight was 84kg on discharge 02/23/23) Had daily dialysis for several days, will return to MWF dialysis tomorrow [facility] nephrology Dr. Radha Cristobal is following, appreciate recommendations Dietary modification and fluid restriction 1.2L daily discussed with and patient this admission (2) HFrEF (heart failure with reduced ejection fraction): Plan: See above (3) V-tach: Plan: Has a history of ventricular tachycardia, is on amiodarone, has been on teleme try without evidence of ventricular tachycardia This history is in the setting of low EF 20-25%; continue to follow with Cardiology (4) ESRD (end stage renal disease): Plan: Typically on dialysis MWF; currently undergoing daily dialysis due to fluid overload, nephrology following and appreciate recommendations (5) CAD (coronary artery disease): Plan: History of CAD s/p bypass in 2010 Most recent ejection fraction 20-25% on Echocardiogram 12/2022, likely ischemic cardiomyopathy Continue statin, Entresto, Coreg Not on aspirin due to recent GI bleeding, has outpatient GI follow up (6) Atrial fibrillation: Plan: History of, no RVR this admission Not on systemic AC due to ongoing evaluation of GI bleeding in January Continue amiodarone (7) Type II diabetes mellitus: Plan: Sliding scale insulin, BSGs have been well controlled in-house Plan Patient is undergoing daily dialysis. PT and OT ordered to help evaluate patient, as he continues to clinically improve I suspect he may require rehab vs. home health services on discharge for deconditioning and continued medical monitoring for fluid status changes. However, it has been very difficult to find a time that physical therapy can evaluate patient, as he fatigues easily in the afternoons and has declined therapy today, and been in dialysis the other times they have tried to evaluate him. Admission and Anticipated Discharge Date Admission Date: March 31, 2023 Subjective Patient without any acute events overnight. With improvement in oxygenation today. Able to be on room air. No complaints of shortness of breath on room air, and has been doing well even with lying flat which few days ago he had a lot of difficulty with. Review of Systems Review of Systems: All systems reviewed & are unremarkable except as noted in Subjective Physical Exam Constitutional: WD/WN, vitals as above Respiratory: normal respiratory effort, lungs clear to auscultation Saturating to 92% on room air Cardiovascular: Regular rate and rhythm, no murmurs, bilateral lower extremity 1+ pitting edema Skin: no rashes, warm and dry Psychiatric: A+Ox3, euthymic affect Results & Data Results & Data Vital Signs (Past 12 Hours) Vital Signs Temp Pulse Pulse Pulse Resp BP Pulse Ox 04/04/23 07:16 82 04/04/23 00:00 76 04/03/23 21:00 04/04/23 03:24 36.5 C 80 16 158/85 H 95 04/03/23 23:31 36.7 C 74 20 152/80 H 97 04/03/23 19:44 36.3 C L 77 20 136/77 99 O2 Del Method O2 Flow Rate 04/04/23 07:16 04/04/23 00:00 04/03/23 21:00 Nasal Cannula 3 04/04/23 03:24 Nasal Cannula 4 04/03/23 23:31 Nasal Cannula 4 04/03/23 19:44 Nasal Cannula 4 PG Care Time/CCT Total # of Minutes Spent Total Time Spent with Patient: Total time spent is greater than 50% in coordination of care (as documented) at patient's floor/unit and/or counseling patient: Coding Level of Care Code 00276 SUB INP/OBS CARE 2/35MIN Diagnoses Acute respiratory failure with hypoxia and hypercarbia J96.01; J96.02 HFrEF (heart failure with reduced ejection fraction) I50.20 V-tach I47.20 ESRD (end stage renal disease) N18.6 CAD (coronary artery disease) I25.10 Atrial fibrillation I48.91 Type II diabetes mellitus E11.9
[2023-04-04] MEDS: VALSARTAN/SACUBITRIL 26/24MG TAB PO SCH ×2 (08:52→20:25)
[2023-04-04] MEDS: AMIODARONE 200 MG TAB PO SCH ×2 (08:52→20:23)
[2023-04-04] MEDS: SACCHAROMYCES BOULARDII 250 MG CAP PO SCH ×2 (08:52→20:22)
[2023-04-04] MEDS: INSULIN ASPART PER UNIT CHARGE SC SCH ×4 (08:52→20:25)
[2023-04-04] MEDS: carvediloL 12.5 MG TAB PO SCH ×2 (08:53→17:29)
[2023-04-04] MEDS: METOCLOPRAMIDE HCL 5 MG TABLET PO SCH ×3 (08:53→17:29)
[2023-04-04] MEDS: buPROPion SR 100 MG TABCR PO SCH (08:53)
[2023-04-04] MEDS: SUCRALFATE 1 GM TAB PO SCH ×4 (08:53→20:22)
[2023-04-04] MEDS: ACETAMINOPHEN 325 MG TAB PO PRN (13:03)
--- NOTE | 2023-04-04 14:06 | Nephrology Progress Note ---
Date of Service April 04, 2023 Assessment & Plan Admission and Anticipated Discharge Date Admission Date: March 31, 2023 Subjective Assessment & Plan (1) ESRD (end stage renal disease): Plan: ESRD on HD admitted with volume overload. He had 4L off each treatment x 3 days in a row now likely to need daily HD for some time dialysis tomorrow 4hr and take 4--4.5 kilo off recommend dietary teaching re 1.2 L FR in hospital and at home consider PT eval to monitor for orthostatic issues given hx of falls and autonomic dysfunction (2) Anemia of chronic disease: Plan: stable/acceptable hgb for now w/ recent thrombocytopenia past 6-8 wks. t sat as OP 33% 03/19 -continue to avoid heparin w/ HD; non rx'd on HD or on the floors -monitor CBC q48 hrs at least > note thrombocytopenia recurred -epo w/ HD; no venofer needed currently Subjective had Dialysis Yesterday. Still On o2 and still higher than previous wt. Review of Systems Review of Systems: All systems reviewed & are unremarkable except as noted in Subjective Physical Exam Constitutional: well developed, well nourished and + obese; no acute distress Eyes: EOM intact bilaterally ENMT: Ears: no external ear abnormality Nose: no external nose abnormality Mouth: + dry oral mucous membranes Neck: no nuchal rigidity Respiratory: normal respiratory effort Auscultation: + diminished lung sounds Cardiovascular: Rate/Rhythm: regular rate and regular rhythm Extremities: no edema Gastrointestinal (Abdomen): Inspection/Auscultation: normal bowel sounds Percussion/Palpation: abdomen soft; abdomen nontender Musculoskeletal: Extremities: strength 5/5 throughout Skin: no rashes, warm and dry Psychiatric: Orientation: alert and oriented x 3 Speech: normal rate/rhythm/volume of speech (speaks softly at baseline) Affect: + flat affect Results & Data Vital Signs (Past 12 Hours) Vital Signs Temp Pulse Pulse Resp BP Pulse Ox O2 Del Method 04/04/23 08:00 Nasal Cannula 04/04/23 11:46 36.5 C 83 18 158/92 H 100 Nasal Cannula 04/04/23 07:29 36.8 C 84 16 152/79 H 99 Nasal Cannula 04/04/23 07:16 82 04/04/23 03:24 36.5 C 80 16 158/85 H 95 Nasal Cannula O2 Flow Rate 04/04/23 08:00 3 04/04/23 11:46 3 04/04/23 07:29 3 04/04/23 07:16 04/04/23 03:24 4
[2023-04-04] MEDS: LORazepam 1 MG TAB PO PRN (20:22)
[2023-04-04] MEDS: ATORVASTATIN 40 MG TAB PO SCH (20:23)
[2023-04-04] MEDS: NEPHROCAPS PO SCH (20:23)
[2023-04-04] MEDS: allopurinoL 100 MG TAB PO SCH (20:24)
[2023-04-04] MEDS: VENLAFAXINE HCL XR 75 MG CAPXR PO SCH (20:25)
[2023-04-05] MEDS ORDERED: EPOETIN ALFA 20,000 UNITS/ML VIAL IV SCH (07:00)
[2023-04-05] MEDS ORDERED: SODIUM CHLORIDE 0.9% 1000ML 1,000 ML IV PRN ×2 (07:00→10:16)
[2023-04-05 07:17] LABS: Hematocrit (blood only) 30.2 % (42.0-52.0); Hemoglobin 9.9 g/dl (14.0-18.0); Mean Corpuscular Hemoglobin 30.7 pg (25.0-34.0); Mean Corpuscular Hgb Conc 32.8 g/dL (32.0-36.0); Mean Corpuscular Volume 93.8 fL (80.0-100.0); Mean Platelet Volume 11.6 fL (9.4-12.4); Platelet Count 162 K/uL (130-400); RDW Coefficient of Variation 17.7 % (11.5-14.5); RDW Standard Deviation 60.6 fL (36.4-46.3); Red Blood Count 3.22 M/uL (4.70-6.10)
[2023-04-05 07:56] LABS: BUN Creatinine Ratio 4.1 (10-20); Calcium 9.3 mg/dl (8.6-10.3); Creatinine Clr Calc Pharmacy 19.9 ml/min; Est GFR (African American) 17.9 ml/min; Est GFR (Non-African American) 15.5 ml/min; Magnesium 1.7 mg/dl (1.7-2.4); Potassium 3.7 mmol/L (3.5-5.1)
[2023-04-05] MEDS: INSULIN ASPART PER UNIT CHARGE SC SCH ×4 (08:07→20:34)
--- NOTE | 2023-04-05 08:23 | Hospitalist Progress Note ---
Date of Service April 05, 2023 Assessment & Plan (1) Acute respiratory failure with hypoxia and hypercarbia: Plan: Secondary to acute systolic HF exacerbation History of HFrEF with the most recent ejection fraction 12/2022 of 20-25%, with associated severe global hypokinesis of the left ventricle Acute exacerbation of systolic heart failure secondary to dietary indiscretion on presentation Weight 100.4 kgs on admission > 88.1 kg (weight was 84kg on discharge 02/23/23) Had daily dialysis for several days, will return to MWF dialysis tomorrow [facility] nephrology Dr. Radha Cristobal is following, appreciate recommendations Dietary modification and fluid restriction 1.2L daily discussed with and patient this admission (2) V-tach: Plan: Has a history of ventricular tachycardia, is on amiodarone, has been on telemetry without evidence of ventricular tachycardia This history is in the setting of low EF 20-25%; continue to follow with Cardiology (3) ESRD (end stage renal disease): Plan: Typically on dialysis MWF; currently undergoing daily dialysis due to fluid overload, nephrology following and appreciate recommendations (4) CAD (coronary artery disease): Plan: History of CAD s/p bypass in 2010 Most recent ejection fraction 20-25% on Echocardiogram 12/2022, likely ischemic cardiomyopathy Continue statin, Entresto, Coreg Not on aspirin due to recent GI bleeding, has outpatient GI follow up (5) Atrial fibrillation: Plan: History of, no RVR this admission Not on systemic AC due to ongoing evaluation of GI bleeding in January Continue amiodarone (6) Type II diabetes mellitus: Plan: Sliding scale insulin, BSGs have been well controlled in-house Admission and Anticipated Discharge Date Admission Date: March 31, 2023 Subjective Patient was seen in dialysis he is actually quite bright and awake and alert he had no focal complaints wants to go home does not want to go to rehab in any way is not present at this time Physical Exam Physical Exam: Exam is regular lungs are clear extremities are without edema forehead bruise is healing Results & Data Results & Data Vital Signs (Past 12 Hours) Vital Signs Temp Pulse Pulse Resp BP Pulse Ox O2 Del Method 04/05/23 07:52 97.7 F 79 18 159/85 H 95 Room Air 04/05/23 00:00 78 04/05/23 03:00 97.5 F L 74 17 151/84 H 99 Nasal Cannula 04/04/23 23:00 97.7 F 75 16 165/89 H 98 Nasal Cannula 04/04/23 21:00 Nasal Cannula O2 Flow Rate 04/05/23 07:52 04/05/23 00:00 04/05/23 03:00 2 04/04/23 23:00 2 04/04/23 21:00 2 Laboratory Results Reviewed chemistry reviewed CBC PG Care Time/CCT Total # of Minutes Spent Total Time Spent with Patient: Total time spent is greater than 50% in coordination of care (as documented) at patient's floor/unit and/or counseling patient: Coding Level of Care Code 63490 SUB INP/OBS CARE 2/35MIN Diagnoses Acute respiratory failure with hypoxia and hypercarbia J96.01; J96.02 V-tach I47.20 ESRD (end stage renal disease) N18.6 CAD (coronary artery disease) I25.10 Atrial fibrillation I48.91 Type II diabetes mellitus E11.9
[2023-04-05] MEDS: AMIODARONE 200 MG TAB PO SCH ×2 (08:36→19:51)
[2023-04-05] MEDS: carvediloL 12.5 MG TAB PO SCH ×2 (08:36→17:32)
[2023-04-05] MEDS: METOCLOPRAMIDE HCL 5 MG TABLET PO SCH ×3 (08:36→17:33)
[2023-04-05] MEDS: FAMOTIDINE 20 MG TAB PO SCH (08:36)
[2023-04-05] MEDS: SUCRALFATE 1 GM TAB PO SCH ×4 (08:36→19:52)
[2023-04-05] MEDS: SACCHAROMYCES BOULARDII 250 MG CAP PO SCH ×2 (08:37→19:53)
[2023-04-05] MEDS: buPROPion SR 100 MG TABCR PO SCH (08:37)
[2023-04-05] MEDS: VALSARTAN/SACUBITRIL 26/24MG TAB PO SCH ×2 (08:37→19:52)
--- NOTE | 2023-04-05 15:24 | Nephrology Progress Note ---
Date of Service April 05, 2023 Assessment & Plan Admission and Anticipated Discharge Date Admission Date: March 31, 2023 Subjective Assessment & Plan (1) ESRD (end stage renal disease): Plan: ESRD on HD admitted with volume overload. He had 4L off each treatment Seems to be much better now after very aggressive UF last week. recommend dietary teaching re 1.2 L FR in hospital and at home consider PT eval to monitor for orthostatic issues given hx of falls and autonomic dysfunction CXR x 1 view for comparison and will decide about dialysis tomorrow based on that. Most likely will do extra dialysis. Might benefit from some rehab. Subjective Had Dialysis earlier today. had 4 kilo off without issues. Feels lot better overall. Review of Systems Review of Systems: All systems reviewed & are unremarkable except as noted in Subjective Physical Exam Constitutional: well developed, well nourished and + obese; no acute distress Eyes: EOM intact bilaterally ENMT: Ears: no external ear abnormality Nose: no external nose abnormality Mouth: + dry oral mucous membranes Neck: no nuchal rigidity Respiratory: normal respiratory effort Auscultation: + diminished lung sounds Cardiovascular: Rate/Rhythm: regular rate and regular rhythm Extremities: no edema Gastrointestinal (Abdomen): Inspection/Auscultation: normal bowel sounds Percussion/Palpation: abdomen soft; abdomen nontender Musculoskeletal: Extremities: strength 5/5 throughout Skin: no rashes, warm and dry Psychiatric: Orientation: alert and oriented x 3 Speech: normal rate/rhythm/volume of speech (speaks softly at baseline) Affect: + flat affect Results & Data Vital Signs (Past 12 Hours) Vital Signs Temp Pulse Pulse Resp BP BP Pulse Ox 04/05/23 14:13 36.6 C 81 18 111/66 95 04/05/23 13:55 36.5 C 78 135/59 L 04/05/23 13:30 77 100/59 L 04/05/23 13:00 81 102/64 04/05/23 12:30 80 115/68 04/05/23 12:00 66 120/77 04/05/23 11:30 81 135/72 04/05/23 11:00 81 153/85 H 04/05/23 10:30 80 169/89 H 04/05/23 10:00 76 152/84 H 04/05/23 09:40 36.4 C L 79 04/05/23 09:49 76 154/83 H 04/05/23 08:00 77 04/05/23 07:52 36.5 C 79 18 159/85 H 95 O2 Del Method 04/05/23 14:13 Room Air 04/05/23 13:55 04/05/23 13:30 04/05/23 13:00 04/05/23 12:30 04/05/23 12:00 04/05/23 11:30 04/05/23 11:00 04/05/23 10:30 04/05/23 10:00 04/05/23 09:40 04/05/23 09:49 04/05/23 08:00 04/05/23 07:52 Room Air
[2023-04-05] MEDS: ACETAMINOPHEN 325 MG TAB PO PRN (15:48)
--- NOTE | 2023-04-05 15:49 | XRay Report ---
XR chest 1V portable HISTORY: 62 years-old Male f/u CHF acute shortness of breath COMPARISON: 03/31/2023 TECHNIQUE: AP view of the chest FINDINGS: Cardiac silhouette is enlarged. Prior median sternotomy. Dual lumen right IJ dialysis catheter is in unchanged positioning. Resolution of the previously described pulmonary edema. No pneumothorax, or ai rspace consolidation. Trace pleural effusions. Mild linear lateral left midlung atelectasis versus sc arring. Bones appear grossly intact. Cholecystectomy. IMPRESSION: 1. Cardiomegaly without pulmonary edema. 2. Trace pleural effusions. ACT 112: Negative or not required by law. The above report was generated using voice recognition software. It may contain grammatical, syntax o r spelling errors. Electronically signed by: Aston Ryan M.D. 04/05/2023 3:48 PM
[2023-04-05] MEDS: LORazepam 1 MG TAB PO PRN (19:51)
[2023-04-05] MEDS: allopurinoL 100 MG TAB PO SCH (19:52)
[2023-04-05] MEDS: VENLAFAXINE HCL XR 75 MG CAPXR PO SCH (19:52)
[2023-04-05] MEDS: NEPHROCAPS PO SCH (19:53)
[2023-04-05] MEDS: ATORVASTATIN 40 MG TAB PO SCH (19:53)
[2023-04-06] MEDS: SUCRALFATE 1 GM TAB PO SCH ×2 (07:45→12:12)
[2023-04-06] MEDS: carvediloL 12.5 MG TAB PO SCH (07:45)
[2023-04-06] MEDS: INSULIN ASPART PER UNIT CHARGE SC SCH ×2 (07:45→12:12)
[2023-04-06] MEDS: buPROPion SR 100 MG TABCR PO SCH (08:48)
[2023-04-06] MEDS: VALSARTAN/SACUBITRIL 26/24MG TAB PO SCH (08:48)
[2023-04-06] MEDS: METOCLOPRAMIDE HCL 5 MG TABLET PO SCH ×2 (08:48→12:12)
[2023-04-06] MEDS: SACCHAROMYCES BOULARDII 250 MG CAP PO SCH (08:48)
[2023-04-06] MEDS: AMIODARONE 200 MG TAB PO SCH (08:48)
--- NOTE | 2023-04-06 09:05 | Nephrology Progress Note ---
Date of Service April 06, 2023 Assessment & Plan Admission and Anticipated Discharge Date Admission Date: March 31, 2023 Subjective Assessment & Plan (1) ESRD (end stage renal disease): Plan: ESRD on HD admitted with volume overload. He had 4L off each treatment Seems to be much better now after very aggressive UF last week. recommend dietary teaching re 1.2 L FR in hospital and at home consider PT eval to monitor for orthostatic issues given hx of falls and autonomic dysfunction CXR x 1 from 04/05 is much better. he is on RA and no SOB at all. So no need of extra dialysis now. next HD tomorrow--4hrs 4 kilo Might benefit from some rehab-- and patient desires . Subjective Had Dialysis yesterday. had 4 kilo off without issues. Feels lot better overall. on RA. CXR better Review of Systems Review of Systems: All systems reviewed & are unremarkable except as noted in Subjective Physical Exam Constitutional: well developed, well nourished and + obese; no acute distress Eyes: EOM intact bilaterally ENMT: Ears: no external ear abnormality Nose: no external nose abnormality Mouth: + dry oral mucous membranes C Neck: no nuchal rigidity Respiratory: normal respiratory effort Auscultation: + diminished lung sounds Cardiovascular: Rate/Rhythm: regular rate and regular rhythm Extremities: no edema Gastrointestinal (Abdomen): Inspection/Auscultation: normal bowel sounds Percussion/Palpation: abdomen soft; abdomen nontender Musculoskeletal: Extremities: strength 5/5 throughout Skin: no rashes, warm and dry Psychiatric: Orientation: alert and oriented x 3 Speech: normal rate/rhythm/volume of speech (speaks softly at baseline) Affect: + flat affect Results & Data Vital Signs (Past 12 Hours) Vital Signs Temp Pulse Pulse Resp BP Pulse Ox O2 Del Method 04/06/23 07:02 36.6 C 79 19 146/82 H 95 Room Air 04/06/23 06:21 75 04/06/23 02:59 36.8 C 76 19 134/72 95 Room Air 04/05/23 22:58 36.4 C L 74 17 144/81 H 93 Room Air
--- NOTE | 2023-04-06 14:04 | CT Scan Report ---
CT lumbar spine wo con CLINICAL HISTORY: le weakness TECHNIQUE: Multidetector row helical CT of the lumbar spine was performed without administration of i ntravenous contrast. Coronal and sagittal reformations were obtained. Automated dose lowering techniq ues and/or adjustment according to patient size were utilized for this exam. CT DOSE: 1099.17 mGy.cm Comparison: Comparison is made to MRI lumbar spine 04/02/2009 FINDINGS: For counting purposes, the last complete intervertebral disc space is considered L5-S1. No acute fractures are identified. Degenerative changes are noted in the visualized spine. This resul ts in up to severe neural foraminal stenosis most pronounced at L3-L4 and L4-L5. Vertebral body align ment is within normal limits. Atherosclerotic changes are seen in the aorta. IMPRESSION: Degenerative changes are seen in the spine with up to severe bilateral neural foraminal stenosis. ACT 112: Negative or not required by law. Electronically signed by: Dean Alatorre M.D. 04/06/2023 2:03 PM
--- NOTE | 2023-04-06 14:44 | Discharge Summary ---
Date of Service April 06, 2023 Admission HPI Per Admitting Provider The patient is a 62-year-old male with a past medical history including ESRD on HD on Wednesday, Wednesday and Wednesday, anemia, upper GI bleed history, syncope, V. tach, cirrhosis, atrial fibrillation with RVR, paroxysmal atrial flutter, HFrEF, cardiomyopathy, hyperlipidemia, gout, diabetes mellitus and CAD. The patient underwent dialysis as usual on Wednesday, yesterday, but today developed relatively acute shortness of breath this evening, and worsened as the went on. Principal Diagnosis Acute respiratory failure with hypoxia secondary to end-stage renal disease and acute exacerbation of systolic heart failure Lower extremity weakness possibly impacted by neural neural foraminal stenosis seen on CT scan Discharge Exam Patient is resting laying flat he has no shortness of breath he does not complain of any radicular leg pain but his is concerned as he has lower extremity weakness. Lungs are clear anteriorly laterally cardiac exam is regular Discharge Data Allergies Allergy/AdvReac Type Severity Reaction Status Date / Time oxycodone [From Percocet] Allergy Intermediate Itching Verified 03/31/23 01:19 promethazine [From Phenergan] AdvReac Intermediate Makes Verified 03/31/23 01:19 "mean" simvastatin [From Zocor] AdvReac Intermediate Headache Verified 03/31/23 01:19 Consultations 03/31/23 02:21 ED Decision to Admit Stat 03/31/23 04:46 Consult Nephrology Routine Ordered Studies 04/06/23 10:09 CT lumbar spine wo con Routine Hospital Course (1) Acute respiratory failure with hypoxia and hypercarbia: Secondary to acute systolic HF exacerbation History of HFrEF with the most recent ejection fraction 12/2022 of 20-25%, with associated severe global hypokinesis of the left ventricle Acute exacerbation of systolic heart failure secondary to dietary indiscretion on presentation Patient lost somewhere in the range of 10+ pounds. Dry weight around 1 84-1 88 Had daily dialysis for several days, will return to [facility] dialysis tomorrow [facility] nephrology Dr. Radha Cristobal Dietary modification and fluid restriction 1.2L daily discussed with and patient this admission (2) V-tach: Has a history of ventricular tachycardia, is on amiodarone, has been on telemetry without evidence of ventricular tachycardia This history is in the setting of low EF 20-25%; continue to follow with Cardiology (3) ESRD (end stage renal disease): Typically on dialysis MWF; currently undergoing daily dialysis due to fluid overload, nephrology following and appreciate recommendations (4) CAD (coronary artery disease): History of CAD s/p bypass in 2010 Most recent ejection fraction 20-25% on Echocardiogram 12/2022, likely ischemic cardiomyopathy Continue statin, Entresto, Coreg Not on aspirin due to recent GI bleeding, has outpatient GI follow up (5) Atrial fibrillation: History of, no RVR this admission Not on systemic AC due to ongoing evaluation of GI bleeding in January Continue amiodarone (6) Type II diabetes mellitus: Sliding scale insulin, BSGs have been well controlled in-house (7) Lower extremity weakness: states patient intermittently has lower extremity weakness. A CT scan was performed prior to discharge and shows in the bilateral neuroforaminal stenosis most pronounced at L3-4 and L4-5. Disc hopeful outpatient provider may consider referral to pain management initially as the patient does have cardiovascular risk Total Time Total Time Spent Total Time Spent (In Minutes): It required greater than 30 minutes to prepare this patient for discharge Discharge Plan Discharge Items Patient Disposition: Home - Home Health Services Reason For Visit: CHF, ESRD ON HD NEEDS DIALYSIS Discharge Diagnosis: Acute systolic heart failure End-stage renal disease requiring dialysis Activity: Per Instructions section Activity Comment: Gradually increase activity Non-emergency contact: Casing Material Weigher Call non-emergency contact if: your symptoms worsen Follow-up/Referrals: Yoandy Javed MD [Primary Care Provider] - 04/13/23 11:00 am (Will see Vera Carlos. ) Diet: Dialysis Renal Addtl Attending Provider Instructions: Continue to watch her diet and salt intake take your medications regularly please contact your primary care, field producer or senior storage administrator if you feel you are accumulating weight this may be water weight Call 911 and go to the Emergency Room if: * You have tightness or pain in your chest that does not go away with rest or Nitroglycerin * You are very short of breath even with rest Call your doctor if any of the following symptoms or problems start or get worse: * Shortness of breath or difficulty breathing * Wake up at night short of breath * Chest pain * Cough * Swelling of your hands, fee, or legs * More fatigued or tired with your normal activity * Palpitations - sudden fast heart beats WEIGHT * Weigh yourself every morning after using the bathroom. * Use the same scale. * Wear the same amount of clothing. * Write your weight down on your chart. * Call your doctor if you gain more than 2-3 pounds in 1-2 days. MEDICATIONS * Use this discharge instruction sheet for instructions. * Take your medications at the time your doctor ordered. * Do not skip a dose of your medicines. * If you miss a dose of medicine, take as soon as possible, but DO NOT DOUBLE A DOSE. * Read your medicine information when you get home. * Know all of the side effects of your medicine. * Call your doctor's office if you have any side effects. * Be sure all of your doctors know what medicine and herbs you take (including cold, flu, and herbal medicine). * Pain Medicine: If you do not get relief from your pain, please call your doctor for help. Take the following with you to your follow-up doctor appointments: * Weight Chart * Medication List * List of questions Do not drink excessive alcohol, beer or wine. Pending Studies at Discharge: No Stand-Alone Forms: My [facility] [employer], Smoking Cessation Medications and DC Order Prescriptions: Continued atorvastatin 40 mg tablet 40 mg PO HS Qty: 90 3RF venlafaxine 225 mg tablet extended release 24hr 225 mg PO HS Qty: 90 3RF nystatin 100,000 unit/gram cream 1 appln TOP BID PRN (Reason: Skin Irritation) Patient Comments: to foot and groin ; carvedilol 12.5 mg tablet 12.5 mg PO BIDM Rx Instructions: HOLD FOR PULSE <60 OR SBP <100 famotidine [Pepcid] 20 mg tablet 20 mg PO 3XWK Rx Instructions: MON, WED, & FRI. colesevelam [WelChol] 625 mg tablet 1,875 mg PO BIDM darbepoetin tye in polysorbat 100 mcg/0.5 mL syringe 10 mcg subcut WK Saccharomyces boulardii [Florastor] 250 mg capsule 250 mg PO BID sucralfate [Carafate] 1 gram tablet 1 g PO ACHS ondansetron 4 mg tablet,disintegrating 4 mg PO TID PRN (Reason: Nausea) Entresto 24-26 mg tablet 1 tab PO BID Qty: 180 3RF amiodarone 200 mg tablet 200 mg PO BID Qty: 180 3RF bupropion HCl 100 mg tablet sustained-release 12 hr 100 mg PO DAILY Qty: 90 3RF allopurinol 100 mg tablet 200 mg PO HS lorazepam 1 mg tablet 1 mg PO HS PRN (Reason: Sleep) B complex with C 20-folic acid 1 mg Capsule 1 cap PO HS nitroglycerin 0.4 mg tablet, sublingual 0.4 mg SL DIRECTED PRN (Reason: Chest Pain) Rx Instructions: NEEDED FOR CHEST PAIN : ONE TABLET UNDER THE TONGUE EVERY 5 MINUTES UP TO 3 DOSES. metoclopramide HCl 5 mg Tablet 2.5 mg PO TIDM Qty: 120 0RF Discharge Orders: Discharge Order (Routine); Ordered 04/06/23 Ordered By: Nikolas Nguyen Admission Data Admit Date/Time: 03/31/23 02:41 Attending Provider: Nikolas Nguyen Admit Provider: Nlado Almaraz Primary Care Provider: Yoandy Javed Other Providers: Naldo Almaraz ; Radha Cristobal Other Interventions: Discharge Summary Assessment (RN) Last Done: 04/06/23 11:32 Coding Level of Care Code 14637 INP/OBS DISCH >30 MIN Diagnoses Acute respiratory failure with hypoxia and hypercarbia J96.01; J96.02 V-tach I47.20 ESRD (end stage renal disease) N18.6 CAD (coronary artery disease) I25.10 Atrial fibrillation I48.91 Type II diabetes mellitus E11.9 Lower extremity weakness R29.898
[2023-04-07] MEDS ORDERED: EPOETIN ALFA 20,000 UNITS/ML VIAL IV ONE (07:00)
[2023-04-07] MEDS ORDERED: SODIUM CHLORIDE 0.9% 1000ML 1,000 ML IV PRN (07:00)
== END 2023-04-06 15:32 | disposition home health service (06) | DRG 291 ==
LOC: ED 00:54 → EDINP 02:41 → SUATTDRO 02:41 → EDINP 03:52 → 2S 15:51

== ENCOUNTER 2023-04-28 15:05 | Inpatient (IN) ==
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
[2023-04-28 16:09] LABS: Basophils # (auto) 0.02 K/uL (0-0.2); Basophils % (auto) 0.3 %; Hematocrit (blood only) 40.6 % (42.0-52.0); Hemoglobin 13.1 g/dl (14.0-18.0); Immature Granulocytes # (auto) 0.02 K/uL (0.01-0.20); Immature Granulocytes % (auto) 0.3 %; Lymphocytes # (auto) 0.79 K/uL (1.2-3.4); Mean Corpuscular Hemoglobin 30.9 pg (25.0-34.0); Mean Corpuscular Hgb Conc 32.3 g/dL (32.0-36.0); Mean Corpuscular Volume 95.8 fL (80.0-100.0); Mean Platelet Volume 12.1 fL (9.4-12.4); Monocytes # (auto) 0.25 K/uL (0.11-0.59); Monocytes % (auto) 4.1 %; Neutrophils # (auto) 4.99 K/uL (1.40-6.50); Neutrophils % (auto) 82.3 %; Platelet Count 114 K/uL (130-400); RDW Coefficient of Variation 16.7 % (11.5-14.5); RDW Standard Deviation 58.6 fL (36.4-46.3); Red Blood Count 4.24 M/uL (4.70-6.10); White Blood Count 6.07 K/ul (4.8-10.8)
[2023-04-28 16:22] LABS: Albumin Globulin Ratio 1.1 (0.9-2); BUN Creatinine Ratio 4.7 (10-20); Bilirubin,Total 0.9 mg/dl (0.2-1.0); Calcium 8.8 mg/dl (8.6-10.3); Creatinine Clr Calc Pharmacy 27.8 ml/min; Est GFR (African American) 26.9 ml/min; Est GFR (Non-African American) 23.2 ml/min; Globulin 2.8 gm/dl (2.5-4.0); Potassium 3.6 mmol/L (3.5-5.1); Total Protein 5.8 gm/dl (6.0-8.3)
[2023-04-28 16:28] LABS: Troponin I High Sensitivity 23.5 pg/ml (0-20)
[2023-04-28 16:35] LABS: INR 1.1 (0.9-1.1); Partial Thromboplastin Time 28.6 Seconds (21.0-31.0); Prothrombin Time 11.5 Seconds (9.0-12.0)
--- NOTE | 2023-04-28 16:44 | XRay Report ---
XR chest 1V portable CLINICAL HISTORY: Chest pain, nonspecific TECHNIQUE: Single frontal radiograph of the chest was obtained. Comparison: Comparison is made to chest radiograph 04/05/2023 FINDINGS: Median sternotomy wires are unchanged. Dual-lumen right venous catheter is unchanged. The cardiomedia stinal silhouette is normal. The lungs are clear. No evidence of pleural effusion or pneumothorax. IMPRESSION: No acute chest disease. ACT 112: Negative or not required by law. Electronically signed by: Dean Alatorre M.D. 04/28/2023 4:43 PM
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
[2023-04-28 19:39] LABS: Magnesium 1.8 mg/dl (1.7-2.4)
[2023-04-28] MEDS ORDERED: ACETAMINOPHEN 325 MG TAB PO PRN (20:50)
[2023-04-28] MEDS ORDERED: GLUCOSE 40% GEL 15 GM TUBE PO PRN (20:50)
[2023-04-28] MEDS ORDERED: GLUCOSE 10 TAB/TUBE PO PRN (20:50)
[2023-04-28] MEDS ORDERED: NITROGLYCERIN SL 0.4 MG/TAB TAB SL PRN (20:50)
[2023-04-28] MEDS ORDERED: NYSTATIN CR 15 GM TUBE EXT PRN (20:50)
[2023-04-28] MEDS ORDERED: LORazepam 0.5 MG TAB PO PRN (20:50)
[2023-04-28] MEDS: VALSARTAN/SACUBITRIL 26/24MG TAB PO SCH (21:52)
[2023-04-28] MEDS: allopurinoL 100 MG TAB PO SCH (21:52)
[2023-04-28] MEDS: AMIODARONE 200 MG TAB PO SCH (21:52)
[2023-04-28] MEDS: SACCHAROMYCES BOULARDII 250 MG CAP PO SCH (21:52)
[2023-04-28] MEDS: ATORVASTATIN 40 MG TAB PO SCH (21:52)
[2023-04-28] MEDS: HEPARIN SOD 5,000 UNIT/0.5 ML VIAL SQ SCH (21:53)
[2023-04-28] MEDS: LORazepam 1 MG TAB PO PRN (21:53)
[2023-04-28] MEDS: VENLAFAXINE HCL XR 75 MG CAPXR PO SCH (21:53)
[2023-04-28] MEDS: FAMOTIDINE 20 MG TAB PO SCH (21:53)
[2023-04-29] MEDS: HEPARIN SOD 5,000 UNIT/0.5 ML VIAL SQ SCH ×3 (05:48→20:07)
[2023-04-29] MEDS: PANTOprazole 40 MG TAB PO SCH (05:48)
[2023-04-29 06:25] LABS: Calcium 8.1 mg/dl (8.6-10.3); Magnesium 1.7 mg/dl (1.7-2.4); Potassium 3.6 mmol/L (3.5-5.1)
[2023-04-29 06:30] LABS: BUN Creatinine Ratio 4.7 (10-20); Creatinine Clr Calc Pharmacy 22.5 ml/min; Est GFR (African American) 21.3 ml/min; Est GFR (Non-African American) 18.4 ml/min
[2023-04-29 06:57] LABS: Basophils # (auto) 0.04 K/uL (0-0.2); Basophils % (auto) 0.7 %; Hematocrit (blood only) 34.4 % (42.0-52.0); Hemoglobin 11.3 g/dl (14.0-18.0); Immature Granulocytes # (auto) 0.01 K/uL (0.01-0.20); Immature Granulocytes % (auto) 0.2 %; Lymphocytes # (auto) 1.27 K/uL (1.2-3.4); Lymphocytes % (auto) 21.3 %; Mean Corpuscular Hemoglobin 30.6 pg (25.0-34.0); Mean Corpuscular Hgb Conc 32.8 g/dL (32.0-36.0); Mean Corpuscular Volume 93.2 fL (80.0-100.0); Mean Platelet Volume 12.2 fL (9.4-12.4); Monocytes # (auto) 0.62 K/uL (0.11-0.59); Monocytes % (auto) 10.4 %; Neutrophils # (auto) 4.03 K/uL (1.40-6.50); Neutrophils % (auto) 67.4 %; Platelet Count 100 K/uL (130-400); RDW Coefficient of Variation 16.4 % (11.5-14.5); RDW Standard Deviation 55.6 fL (36.4-46.3); Red Blood Count 3.69 M/uL (4.70-6.10); White Blood Count 5.97 K/ul (4.8-10.8)
[2023-04-29] MEDS: CARBOHYDRATES FOR HYPOGLYCEMIA PO PRN ×2 (07:00→16:00)
--- NOTE | 2023-04-29 07:43 | Hospitalist Progress Note ---
Date of Service April 29, 2023 Assessment & Plan (1) Syncope: Plan: Patient presents with reportedly syncopal episode lasting ~15 seconds with weak or absent pulse- unable to clarify any further details. This occurred after dialysis. IN the past the pt has had issues with hypotension, had entresto held in the past recently restarted, repeat echocardiogram shows preserved ejection fraction therefore we will stop Entresto at this time. Blood pressure remains low may consider reinstitution of carvedilol. He be feeling his heart failure reduced ejection fraction has resolved with rate controlling A-fib still remains with heart failure preserved ejection fraction chronic and stable Low-grade fever also in the evening of 04/29/2023 we will check blood cultures if fever recurrs (2) ESRD on dialysis: Plan: Chronic stable on dialysis MWF - Nephrology consultation appreciated was questioning the possibility of eventually considering palliative care as he is having a decline in his cognition and he is also worsening with regard to ambulation and as we discussed the pros and cons of his echocardiogram or worsened she did not want to pursue placement of an AICD device. Subsequently I think at some point will enter palliative care discussions but this point time she rhe but at my request to talk to palliative care provider while in the hospital (3) Elevated troponin: Plan: Likely demand from today's events - however is in a patient with ESRD- but as above no CP and no STEMI on ECG 30.6-23.5-51.7 (4) Atrial fibrillation: Plan: Chronic stable in NSR at this time - Follow on telemetry as above- (5) Congestive heart failure: Plan: Chronic heart failure preserved ejection fraction watching volume status with dialysis improved heart failure with rate controlled A-fib (6) V-tach: Plan: History of such requiring cardioversion- remains on ammiodarone - as above follow on telemetry optimize electrolytes (7) Hypoglycemia: Plan: Acute on chronic- currently normoglycemic- family reports frequently occurs at home - will place on AC/HS blood glucose checks with hypoglycemic protocol - continue with anti-emetics- possibly may benefit from nutritional evaluation with shake supplement Admission and Anticipated Discharge Date Admission Date: April 28, 2023 Subjective Patient is no complaints he is perseverating on the possibility of any ICD if his ejection fraction is poor however ejection fraction has improved with rate controlling his atrial fibrillation Discussion with his outside of the room regarding CODE STATUS and AICD placement and possible palliative care. Patient has had a decline in his overall feelings at home and has not had a very feeling existence being in and out of the hospital and on dialysis 3 times a week. Not ready to go to palliative care at this time but is considering it Physical Exam Physical Exam: Patient lying flat in the bed no signs of shortness of breath cardiac exam is regular his lungs are with some diminished sounds at the bases with rhonchi otherwise clear Extremities are with trace edema Results & Data Results & Data Vital Signs (Past 12 Hours) Vital Signs Temp Pulse Pulse Resp BP BP BP 04/29/23 03:20 97.7 F 84 17 123/78 04/28/23 21:00 04/28/23 22:09 83 04/28/23 20:48 94 H 04/28/23 22:35 98.4 F 86 18 146/69 H 04/28/23 20:50 04/28/23 21:56 88 110/66 04/28/23 19:50 90 04/28/23 20:53 98.8 F 93 H 20 114/63 04/28/23 20:34 04/28/23 20:21 92 H 18 144/75 H 04/28/23 20:00 90 17 Pulse Ox Pulse Ox O2 Del Method O2 Del Method O2 Flow Rate 04/29/23 03:20 99 Nasal Cannula 2 04/28/23 21:00 Room Air 04/28/23 22:09 04/28/23 20:48 04/28/23 22:35 96 Nasal Cannula 2 04/28/23 20:50 93 Room Air 04/28/23 21:56 04/28/23 19:50 04/28/23 20:53 93 Room Air 04/28/23 20:34 Room Air 04/28/23 20:21 100 04/28/23 20:00 97 Laboratory Results Reviewed CBC reviewed chemistry PG Care Time/CCT Total # of Minutes Spent Total Time Spent with Patient: Total time spent is greater than 50% in coordination of care (as documented) at patient's floor/unit and/or counseling patient: Coding Level of Care Code 50733 SUB INP/OBS CARE 3/50MIN Diagnoses Syncope R55 Syncope type: unspecified ESRD on dialysis N18.6; Z99.2 Elevated troponin R77.8 Atrial fibrillation I48.91 Congestive heart failure I50.9 V-tach I47.20 Hypoglycemia E16.2 (1) Syncope Syncope type: unspecified Qualified Code(s): R55 - Syncope and collapse
[2023-04-29] MEDS: AMIODARONE 200 MG TAB PO SCH ×2 (08:09→20:05)
[2023-04-29] MEDS: METOCLOPRAMIDE HCL 5 MG TABLET PO SCH ×3 (08:09→17:06)
[2023-04-29] MEDS: SACCHAROMYCES BOULARDII 250 MG CAP PO SCH ×2 (08:10→20:06)
[2023-04-29] MEDS: VALSARTAN/SACUBITRIL 26/24MG TAB PO SCH (08:11)
[2023-04-29] MEDS: buPROPion SR 100 MG TABCR PO SCH (08:11)
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
[2023-04-29] MEDS ORDERED: droNABinol 2.5 MG CAP PO ONE (11:30)
[2023-04-29] MEDS: PROMETHAZINE HCL 25 MG TAB PO PRN (13:25)
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
--- NOTE | 2023-04-29 16:24 | XCELERA ---
[id number] \\[id number]
[2023-04-29] MEDS: VENLAFAXINE HCL XR 75 MG CAPXR PO SCH (20:04)
[2023-04-29] MEDS: LORazepam 1 MG TAB PO PRN (20:04)
[2023-04-29] MEDS: allopurinoL 100 MG TAB PO SCH (20:05)
[2023-04-29] MEDS: ATORVASTATIN 40 MG TAB PO SCH (20:06)
[2023-04-29] MEDS: droNABinol 2.5 MG CAP PO SCH (20:33)
[2023-04-30] MEDS: HEPARIN SOD 5,000 UNIT/0.5 ML VIAL SQ SCH ×3 (05:48→20:16)
[2023-04-30] MEDS: PANTOprazole 40 MG TAB PO SCH (05:48)
[2023-04-30 06:36] LABS: Basophils # (auto) 0.03 K/uL (0-0.2); Basophils % (auto) 0.6 %; Eosinophils # (auto) 0.05 K/uL (0-0.50); Hematocrit (blood only) 32.2 % (42.0-52.0); Hemoglobin 11.2 g/dl (14.0-18.0); Immature Granulocytes # (auto) 0.01 K/uL (0.01-0.20); Immature Granulocytes % (auto) 0.2 %; Lymphocytes # (auto) 1.22 K/uL (1.2-3.4); Lymphocytes % (auto) 23.6 %; Mean Corpuscular Hemoglobin 31.9 pg (25.0-34.0); Mean Corpuscular Hgb Conc 34.8 g/dL (32.0-36.0); Mean Corpuscular Volume 91.7 fL (80.0-100.0); Mean Platelet Volume 11.7 fL (9.4-12.4); Monocytes % (auto) 9.7 %; Neutrophils # (auto) 3.37 K/uL (1.40-6.50); Neutrophils % (auto) 64.9 %; Platelet Count 97 K/uL (130-400); RDW Coefficient of Variation 16.3 % (11.5-14.5); RDW Standard Deviation 54.8 fL (36.4-46.3); Red Blood Count 3.51 M/uL (4.70-6.10); White Blood Count 5.18 K/ul (4.8-10.8)
[2023-04-30] MEDS ORDERED: SODIUM CHLORIDE 0.9% 1000ML 1,000 ML IV PRN (06:36)
[2023-04-30] MEDS: CARBOHYDRATES FOR HYPOGLYCEMIA PO PRN ×4 (07:18→13:04)
[2023-04-30 07:26] LABS: BUN Creatinine Ratio 5.5 (10-20); Calcium 8.5 mg/dl (8.6-10.3); Creatinine Clr Calc Pharmacy 16.4 ml/min; Est GFR (African American) 14.8 ml/min; Est GFR (Non-African American) 12.7 ml/min; Magnesium 1.8 mg/dl (1.7-2.4)
[2023-04-30] MEDS ORDERED: Nursing to Pharmacy Communication SCH (08:00)
[2023-04-30] MEDS ORDERED: carvediloL 6.25 MG TAB PO SCH (08:00)
[2023-04-30] MEDS: SACCHAROMYCES BOULARDII 250 MG CAP PO SCH (11:23)
[2023-04-30] MEDS: buPROPion SR 100 MG TABCR PO SCH (12:58)
[2023-04-30] MEDS: AMIODARONE 200 MG TAB PO SCH ×2 (12:59→20:16)
[2023-04-30] MEDS: FAMOTIDINE 20 MG TAB PO SCH (12:59)
[2023-04-30] MEDS: droNABinol 2.5 MG CAP PO SCH ×2 (13:15→20:16)
[2023-04-30] MEDS: LORazepam 0.5 MG TAB PO PRN (13:22)
[2023-04-30] MEDS: PROMETHAZINE HCL 25 MG TAB PO PRN (15:02)
[2023-04-30] MEDS: ONDANSETRON 4 MG OD TAB PO PRN (15:02)
--- NOTE | 2023-04-30 16:36 | Nephrology Progress Note ---
Date of Service April 30, 2023 Assessment & Plan (1) ESRD on dialysis: Plan: chemistries > K and sodium in acceptable range, though down trend in sodium and increasing SBP show he is trending to mild overload. volume status acceptable provided he has dialysis today. next HD for 05/03 as IP or OP will continue to work w/ outpt dialysis team on best fluid removal targets for this challenging patient > discussed w/ dialysis team today to up TW, CXR q1-2 wks w/ G@H; limiting UF / tx; consider exerpience the difference triall >>>note improved EF on TTE and HF team recommendations to d/c entresto w/ close f/u >consider careful eval of antiemetics for this heart pt Admission and Anticipated Discharge Date Admission Date: April 28, 2023 Subjective seen on rounds this am; feeling well and "ready to go home" at that time. no dizziness; no sob; N controlled. tolerated 3L UF at dialysis w/o issues. Review of Systems Review of Systems: All systems reviewed & are unremarkable except as noted in Subjective Physical Exam Constitutional: well developed and well nourished Eyes: EOM intact bilaterally ENMT: Ears: no external ear abnormality Nose: no external nose abnormality Mouth: + dry oral mucous membranes Neck: no nuchal rigidity Respiratory: normal respiratory effort Auscultation: + diminished lung sounds Cardiovascular: RRR, no murmur, no edema Gastrointestinal (Abdomen): Inspection/Auscultation: normal bowel sounds Percussion/Palpation: abdomen soft; abdomen nontender Musculoskeletal: Extremities: strength 5/5 throughout Skin: no rashes, warm and dry Results & Data Vital Signs (Past 12 Hours) Vital Signs Temp Pulse Pulse Pulse Resp BP BP 04/30/23 15:56 85 04/30/23 15:46 36.6 C 87 18 132/83 04/30/23 12:22 36.6 C 87 04/30/23 12:00 90 156/85 H 04/30/23 11:30 82 132/98 04/30/23 09:00 85 04/30/23 08:00 04/30/23 11:00 62 119/79 04/30/23 08:00 04/30/23 10:30 82 132/111 H 04/30/23 10:00 84 163/101 H 04/30/23 09:30 77 184/100 H 04/30/23 09:00 79 164/106 H 04/30/23 08:30 82 142/78 H 04/30/23 08:19 82 151/76 H 04/30/23 08:12 36.6 C 82 04/30/23 07:09 36.6 C 85 18 148/80 H BP Pulse Ox O2 Del Method O2 Del Method 04/30/23 15:56 04/30/23 15:46 98 Room Air 04/30/23 12:22 198/95 H 04/30/23 12:00 04/30/23 11:30 04/30/23 09:00 04/30/23 08:00 Room Air 04/30/23 11:00 04/30/23 08:00 Room Air 04/30/23 10:30 04/30/23 10:00 04/30/23 09:30 04/30/23 09:00 04/30/23 08:30 04/30/23 08:19 04/30/23 08:12 04/30/23 07:09 96 Room Air Laboratory Results 04/30/23 06:00 04/30/23 06:00
[2023-04-30] MEDS: LORazepam 1 MG TAB PO PRN (20:16)
[2023-04-30] MEDS: ATORVASTATIN 40 MG TAB PO SCH (20:16)
[2023-04-30] MEDS: allopurinoL 100 MG TAB PO SCH (20:17)
[2023-04-30] MEDS: VENLAFAXINE HCL XR 75 MG CAPXR PO SCH (20:17)
--- NOTE | 2023-04-30 20:22 | Hospitalist Progress Note ---
Date of Service April 30, 2023 Assessment & Plan (1) Syncope: Plan: Patient presents with reportedly syncopal episode lasting ~15 seconds with weak or absent pulse- unable to clarify any further details. This occurred after dialysis. IN the past the pt has had issues with hypotension, had entresto held in the past recently restarted, repeat echocardiogram shows preserved ejection fraction therefore we will stop Entresto at this time. Blood pressure remains low may consider reinstitution of carvedilol. He be feeling his heart failure reduced ejection fraction has resolved with rate controlling A-fib still remains with heart failure preserved ejection fraction chronic and stable Low-grade fever also in the evening of 04/29/2023 we will check blood cultures if fever recurrs (2) ESRD on dialysis: Plan: Chronic stable on dialysis MWF - Nephrology consultation appreciated was questioning the possibility of eventually considering palliative care as he is having a decline in his cognition and he is also worsening with regard to ambulation and as we discussed the pros and cons of his echocardiogram or worsened she did not want to pursue placement of an AICD device. Subsequently I think at some point will enter palliative care discussions but this point time she rhe but at my request to talk to palliative care provider while in the hospital (3) Elevated troponin: Plan: Likely demand from today's events - however is in a patient with ESRD- but as above no CP and no STEMI on ECG 30.6-23.5-51.7 (4) Atrial fibrillation: Plan: Chronic stable in NSR at this time - Follow on telemetry as above- (5) Congestive heart failure: Plan: Chronic heart failure preserved ejection fraction watching volume status with dialysis improved heart failure with rate controlled A-fib echocardiogram shows ejection fraction has improved with rate control Entresto has been discontinued (6) V-tach: Plan: History of such requiring cardioversion- remains on ammiodarone - as above follow on telemetry optimize electrolytes (7) Hypoglycemia: Plan: Acute on chronic- currently normoglycemic- family reports frequently occurs at home - will place on AC/HS blood glucose checks with hypoglycemic protocol - continue with anti-emetics- possibly may benefit from nutritional evaluation with shake supplement pending a.m. cortisol insulin growth factor and insulin levels will be checked Admission and Anticipated Discharge Date Admission Date: April 30, 2023 Subjective patient is accompanied by his he feels much improved his ejection fraction has improved with rate controlling his atrial fibrillation he continues to be bothered by persistent hypoglycemia pending laboratories in morning including an a.m. cortisol send out labs including insulin like growth factor and insulin Physical Exam Physical Exam: Patient lying flat in the bed no signs of shortness of breath cardiac exam is regular his lungs are with some diminished sounds at the bases with rhonchi otherwise clear Extremities are with trace edema Results & Data Results & Data Vital Signs (Past 12 Hours) Vital Signs Temp Pulse Pulse Resp BP BP BP 04/30/23 19:09 97.9 F 86 18 152/73 H 04/30/23 15:56 85 04/30/23 15:46 97.9 F 87 18 132/83 04/30/23 12:22 97.9 F 87 198/95 H 04/30/23 12:00 90 156/85 H 04/30/23 11:30 82 132/98 04/30/23 09:00 85 04/30/23 11:00 62 119/79 04/30/23 10:30 82 132/111 H 04/30/23 10:00 84 163/101 H 04/30/23 09:30 77 184/100 H 04/30/23 09:00 79 164/106 H 04/30/23 08:30 82 142/78 H Pulse Ox O2 Del Method 04/30/23 19:09 94 Room Air 04/30/23 15:56 04/30/23 15:46 98 Room Air 04/30/23 12:22 04/30/23 12:00 04/30/23 11:30 04/30/23 09:00 04/30/23 11:00 04/30/23 10:30 04/30/23 10:00 04/30/23 09:30 04/30/23 09:00 04/30/23 08:30 PG Care Time/CCT Total # of Minutes Spent Total Time Spent with Patient: Total time spent is greater than 50% in coordination of care (as documented) at patient's floor/unit and/or counseling patient: Coding Level of Care Code 50195 SUB INP/OBS CARE 2/35MIN Diagnoses Syncope R55 Syncope type: unspecified ESRD on dialysis N18.6; Z99.2 Elevated troponin R77.8 Atrial fibrillation I48.91 Congestive heart failure I50.9 V-tach I47.20 Hypoglycemia E16.2 (1) Syncope Syncope type: unspecified Qualified Code(s): R55 - Syncope and collapse
--- NOTE | 2023-04-30 22:53 | Electrocardiogram Report ---
Test Reason : Blood Pressure : / mmHG Vent. Rate : 093 BPM Atrial Rate : 093 BPM P-R Int : 178 ms QRS Dur : 122 ms QT Int : 416 ms P-R-T Axes : -17 031 050 degrees QTc Int : 517 ms Normal sinus rhythm Non-specific intra-ventricular conduction delay Nonspecific ST abnormality Prolonged QT Abnormal ECG When compared with ECG of 02-APR-2023 06:16, [place] interval has decreased ST no longer elevated in Anterior leads Confirmed by Dre Almonte ([id number]) on 04/30/2023 10:53:13 PM Referred By: Confirmed By:Dre Almonte
[2023-05-01] MEDS: LORazepam 0.5 MG TAB PO PRN (01:34)
[2023-05-01] MEDS: PROMETHAZINE HCL 25 MG TAB PO PRN (01:34)
[2023-05-01] MEDS: HEPARIN SOD 5,000 UNIT/0.5 ML VIAL SQ SCH ×3 (04:44→21:01)
[2023-05-01] MEDS: PANTOprazole 40 MG TAB PO SCH (04:45)
[2023-05-01] MEDS: DEXTROSE 50% 50 ML SYRINGE IV PRN (05:24)
--- NOTE | 2023-05-01 05:56 | Electrocardiogram Report ---
Test Reason : Blood Pressure : / mmHG Vent. Rate : 084 BPM Atrial Rate : 084 BPM P-R Int : 216 ms QRS Dur : 132 ms QT Int : 500 ms P-R-T Axes : 012 023 086 degrees QTc Int : 590 ms Sinus rhythm with 1st degree A-V block Possible Left atrial enlargement Non-specific intra-ventricular conduction block Abnormal ECG When compared with ECG of 28-APR-2023 15:16, [place] interval has increased QT has lengthened Confirmed by Dre Almonte ([id number]) on 05/01/2023 5:56:12 AM Referred By: REFERRED SELF Confirmed By:Dre Almonte
--- NOTE | 2023-05-01 06:53 | Electrocardiogram Report ---
Test Reason : Blood Pressure : / mmHG Vent. Rate : 083 BPM Atrial Rate : 083 BPM P-R Int : 208 ms QRS Dur : 136 ms QT Int : 444 ms P-R-T Axes : 079 038 -40 degrees QTc Int : 521 ms Normal sinus rhythm with 1st degree A-V block Non-specific intra-ventricular conduction block Nonspecific T wave abnormality Abnormal ECG When compared with ECG of 29-APR-2023 05:46, QT has shortened Confirmed by Dre Almonte ([id number]) on 05/01/2023 6:53:31 AM Referred By: REFERRED SELF Confirmed By:Dre Almonte
[2023-05-01 07:30] LABS: Basophils # (auto) 0.04 K/uL (0-0.2); Basophils % (auto) 0.9 %; Hematocrit (blood only) 34.3 % (42.0-52.0); Hemoglobin 11.3 g/dl (14.0-18.0); Immature Granulocytes # (auto) 0.01 K/uL (0.01-0.20); Immature Granulocytes % (auto) 0.2 %; Lymphocytes # (auto) 0.97 K/uL (1.2-3.4); Lymphocytes % (auto) 21.6 %; Mean Corpuscular Hemoglobin 30.8 pg (25.0-34.0); Mean Corpuscular Hgb Conc 32.9 g/dL (32.0-36.0); Mean Corpuscular Volume 93.5 fL (80.0-100.0); Monocytes # (auto) 0.41 K/uL (0.11-0.59); Monocytes % (auto) 9.1 %; Neutrophils # (auto) 3.06 K/uL (1.40-6.50); Neutrophils % (auto) 68.2 %; Platelet Count 101 K/uL (130-400); RDW Standard Deviation 55.3 fL (36.4-46.3); Red Blood Count 3.67 M/uL (4.70-6.10); White Blood Count 4.49 K/ul (4.8-10.8)
[2023-05-01 07:55] LABS: BUN Creatinine Ratio 4.2 (10-20); Calcium 8.6 mg/dl (8.6-10.3); Creatinine Clr Calc Pharmacy 24.3 ml/min; Est GFR (African American) 23.4 ml/min; Est GFR (Non-African American) 20.2 ml/min; Magnesium 1.8 mg/dl (1.7-2.4); Potassium 3.9 mmol/L (3.5-5.1)
[2023-05-01] MEDS: buPROPion SR 100 MG TABCR PO SCH (09:44)
[2023-05-01] MEDS: AMIODARONE 200 MG TAB PO SCH ×2 (09:44→22:08)
[2023-05-01] MEDS: droNABinol 2.5 MG CAP PO SCH (10:07)
[2023-05-01] MEDS ORDERED: MENTHOL-ZINC OXIDE 360 APPLN/120 GM TUBE EXT SCH (10:15)
[2023-05-01 10:53] LABS: HBSAG NON-REACTIVE (NON-REACTIVE); Hepatitis B Surface Ab, Quant <5 mIU/mL (> OR = 10)
[2023-05-01] MEDS: GLUCAGON FOR INJ 1 MG VIAL SQ PRN ×2 (11:58→16:35)
[2023-05-01] MEDS ORDERED: OLANZapine ZYDIS 5 MG ORALLY DIS. TAB PO ONE (17:07)
[2023-05-01] MEDS ORDERED: HYDROCORTISONE SOD 50 MG in SYRINGE 0 ML IV ONE (17:08)
[2023-05-01] MEDS ORDERED: DEXTROSE 5% 1,000 ML IV SCH (17:15)
--- NOTE | 2023-05-01 18:26 | CT Scan Report ---
CT head/brain wo con CLINICAL HISTORY: 62 years-old Male with change in mental status, confusion. Acutely altered mental status TECHNIQUE: Multiple axial CT images of the head were obtained without contrast. A dose lowering tech nique was utilized adhering to the principles of ALARA. CT DOSE: 625.80 mGy.cm COMPARISON: 01/18/2023. FINDINGS: No acute intracranial hemorrhage, midline shift, intracranial mass, hydrocephalus, territorial ischem ia or abnormal extra-axial collection. Involutional changes with chronic microvascular ischemic disea se. Study is mildly motion degraded. Cerebral vascular calcifications. The calvarium is intact. The paranasal sinuses, mastoid air cells, and middle ear cavities are clear . IMPRESSION: No acute intracranial abnormality. ACT 112: Negative or not required by law. The above report was generated using voice recognition software. It may contain grammatical, syntax o r spelling errors. Electronically signed by: Aston Ryan M.D. 05/01/2023 6:24 PM
[2023-05-01] MEDS ORDERED: hydrALAZINE HCL 20 MG/ML VIAL IV PRN (18:31)
--- NOTE | 2023-05-01 18:35 | Hospitalist Progress Note ---
Date of Service May 01, 2023 Assessment & Plan (1) Syncope: Plan: Patient presents with reportedly syncopal episode lasting ~15 seconds with weak or absent pulse- unable to clarify any further details. This occurred after dialysis. IN the past the pt has had issues with hypotension, had entresto held in the past recently restarted, repeat echocardiogram shows preserved ejection fraction therefore we will stop Entresto at this time. Blood pressure remains low may consider reinstitution of carvedilol. He be feeling his heart failure reduced ejection fraction has resolved with rate controlling A-fib still remains with heart failure preserved ejection fraction chronic and stable Low-grade fever also in the evening of 04/29/2023 we will check blood cultures if fever recurrs (2) ESRD on dialysis: Plan: Chronic stable on dialysis MWF - Nephrology consultation appreciated was questioning the possibility of eventually considering palliative care as he is having a decline in his cognition and he is also worsening with regard to ambulation and as we discussed the pros and cons of his echocardiogram or worsened she did not want to pursue placement of an AICD device. Subsequently I think at some point will enter palliative care discussions but this point time she rhe but at my request to talk to palliative care provider while in the hospital (3) Elevated troponin: Plan: Likely demand from today's events - however is in a patient with ESRD- but as above no CP and no STEMI on ECG 30.6-23.5-51.7 (4) Atrial fibrillation: Plan: Chronic stable in NSR at this time - Follow on telemetry as above- (5) Congestive heart failure: Plan: Chronic heart failure preserved ejection fraction watching volume status with dialysis improved heart failure with rate controlled A-fib echocardiogram shows ejection fraction has improved with rate control Entresto has been discontinued (6) V-tach: Plan: History of such requiring cardioversion- remains on ammiodarone - as above follow on telemetry optimize electrolytes (7) Hypoglycemia: Plan: Acute on chronic- currently normoglycemic- family reports frequently occurs at home - will place on AC/HS blood glucose checks with hypoglycemic protocol - continue with anti-emetics- possibly may benefit from nutritional evaluation with shake supplement normal a.m. cortisol, pending insulin growth factor and insulin levels will be checked due to persistent confusion CT head was checked which was negative. Patient will be given hydrocortisone D5 Infusion for 1 L. Admission and Anticipated Discharge Date Admission Date: April 30, 2023 Subjective patient is accompanied by his he is confused he remains persistently hypoglycemic morning cortisol is appropriate, his confusion may be new medications which were started to help with appetite and nausea therefore we will discontinue Marinol at this time. With persisting confusion CT scan of the head was performed which was unremarkable for acute injury his ejection fraction has improved with rate controlling his atrial fibrillation he continues to be bothered by persistent hypoglycemia normal a.m. cortisol se nd out labs including insulin like growth factor and insulin, because of confusion persistent hypoglycemia patient was given 1 dose of hydrocortisone and started on D5 infusion for 1 L Physical Exam Physical Exam: Patient lying flat in the bed no signs of shortness of breath cardiac exam is regular his lungs are with some diminished sounds at the bases with rhonchi otherwise clear Extremities are with trace edema patient is acutely confused today with suppressed appetite. He is in no cardiopulmonary distress at this time Results & Data Results & Data Vital Signs (Past 12 Hours) Vital Signs Temp Pulse Pulse Pulse Resp BP BP 05/01/23 16:08 86 05/01/23 15:16 98.4 F 86 18 183/93 H 05/01/23 08:00 100 H 05/01/23 11:38 189/105 H 05/01/23 11:26 98.2 F 89 18 184/101 H 05/01/23 08:00 05/01/23 07:01 98.1 F 95 H 20 178/86 H Pulse Ox O2 Del Method O2 Del Method 05/01/23 16:08 05/01/23 15:16 93 Room Air 05/01/23 08:00 05/01/23 11:38 05/01/23 11:26 92 Room Air 05/01/23 08:00 Room Air 05/01/23 07:01 97 Room Air PG Care Time/CCT Total # of Minutes Spent Total Time Spent with Patient: Total time spent is greater than 50% in coordination of care (as documented) at patient's floor/unit and/or counseling patient: Coding Level of Care Code 66444 SUB INP/OBS CARE 3/50MIN Diagnoses Syncope R55 Syncope type: unspecified ESRD on dialysis N18.6; Z99.2 Elevated troponin R77.8 Atrial fibrillation I48.91 Congestive heart failure I50.9 V-tach I47.20 Hypoglycemia E16.2 (1) Syncope Syncope type: unspecified Qualified Code(s): R55 - Syncope and collapse
[2023-05-01] MEDS: ATORVASTATIN 40 MG TAB PO SCH (22:08)
[2023-05-01] MEDS: allopurinoL 100 MG TAB PO SCH (22:08)
[2023-05-01] MEDS: VENLAFAXINE HCL XR 75 MG CAPXR PO SCH (22:09)
[2023-05-02] MEDS: HEPARIN SOD 5,000 UNIT/0.5 ML VIAL SQ SCH ×3 (05:19→20:12)
[2023-05-02] MEDS: PANTOprazole 40 MG TAB PO SCH (05:22)
--- NOTE | 2023-05-02 07:22 | Hospitalist Progress Note ---
Date of Service May 02, 2023 Assessment & Plan (1) Syncope: Plan: Patient presents with reportedly syncopal episode lasting ~15 seconds with weak or absent pulse- unable to clarify any further details. This occurred after dialysis. IN the past the pt has had issues with hypotension, had entresto held in the past recently restarted, repeat echocardiogram shows preserved ejection fraction therefore we will stop Entresto at this time. blood pressures have gone up will restart carvedilol. heart failure reduced ejection fraction has resolved with rate controlling A- fib still remains with heart failure preserved ejection fraction chronic and stable toxic encephalopathy from Marinol subsequently resolved with stopping Marinol (2) ESRD on dialysis: Plan: Chronic stable on dialysis MWF - Nephrology consultation appreciated was questioning the possibility of eventually considering palliative care as he is having a decline in his cognition and he is also worsening with regard to ambulation and as we discussed the pros and cons of his echocardiogram or worsened she did not want to pursue placement of an AICD device. Subsequently I think at some point will enter palliative care discussions but this point time she rhe but at my request to talk to palliative care provider while in the hospital (3) Elevated troponin: Plan: Likely demand from today's events - however is in a patient with ESRD- but as above no CP and no STEMI on ECG 30.6-23.5-51.7 (4) Atrial fibrillation: Plan: Chronic stable in NSR at this time restarting coreg at 6.25 bid 05/02/23 - Follow on telemetry as above- (5) Congestive heart failure: Plan: Chronic heart failure preserved ejection fraction watching volume status with dialysis improved heart failure with rate controlled A-fib echocardiogram shows ejection fraction has improved with rate control Entresto has been discontinued (6) V-tach: Plan: History of such requiring cardioversion- remains on amiodarone now coreg - as above follow on telemetry optimize electrolytes (7) Hypoglycemia: Plan: Acute on chronic- intermittently getting D50/glucogon- family reports frequently occurs at home - normal a.m. cortisol, pending insulin growth factor and insulin levels will be checked due to persistent confusion CT head was checked which was negative. Patient will be given hydrocortisone D5 Infusion for 1 L. this transiently improved his glucose but only kept it in the around 80 mg/dL range Plan persistent hospitalization due to recurrent hypoglycemic episodes which are symptomatic Admission and Anticipated Discharge Date Admission Date: April 30, 2023 Subjective patient's mental status is returned to baseline this is likely reflection of the previous Marinol use. I cannot refute possibility that this is related to his worse his current hypoglycemia this did improve with a dose of hydrocortisone and some D5W however the D5W precipitated worsening of his hyponatremia subsequently this was stopped his ejection fraction has improved with rate controlling his atrial fibrillation he continues to be bothered by persistent hypoglycemia normal a.m. cortisol send out labs including insulin like growth factor and insulin, because of confusion persistent hypoglycemia patient was given 1 dose of hydrocortisone and started on D5 infusion for 1 L Physical Exam Physical Exam: Patient lying flat in the bed no signs of shortness of breath cardiac exam is regular his lungs are with some diminished sounds at the bases with rhonchi otherwise clear Extremities are with trace edema patient is acutely confused today with suppressed appetite. He is in no cardiopulmonary distress at this time Results & Data Results & Data Vital Signs (Past 12 Hours) Vital Signs Temp Pulse Pulse Resp BP Pulse Ox O2 Del Method 05/02/23 07:01 98.2 F 88 18 172/93 H 96 Room Air 05/02/23 03:15 97.5 F L 80 18 181/88 H 92 Room Air 05/01/23 23:37 97.9 F 82 16 181/75 H 93 Room Air 05/01/23 22:49 83 05/01/23 20:10 97.7 F 83 18 181/88 H 93 Room Air Laboratory Results reviewed chemistry reviewed trend of glucose PG Care Time/CCT Total # of Minutes Spent Total Time Spent with Patient: Total time spent is greater than 50% in coordination of care (as documented) at patient's floor/unit and/or counseling patient: Coding Level of Care Code 40959 SUB INP/OBS CARE 2/35MIN Diagnoses Syncope R55 Syncope type: unspecified ESRD on dialysis N18.6; Z99.2 Elevated troponin R77.8 Atrial fibrillation I48.91 Congestive heart failure I50.9 V-tach I47.20 Hypoglycemia E16.2 (1) Syncope Syncope type: unspecified Qualified Code(s): R55 - Syncope and collapse
[2023-05-02] MEDS: carvediloL 6.25 MG TAB PO SCH ×2 (07:59→16:50)
[2023-05-02] MEDS: AMIODARONE 200 MG TAB PO SCH ×2 (08:00→20:12)
[2023-05-02] MEDS: buPROPion SR 100 MG TABCR PO SCH (08:00)
[2023-05-02 08:10] LABS: BUN Creatinine Ratio 4.7 (10-20); Creatinine Clr Calc Pharmacy 16.8 ml/min; Est GFR (African American) 15.2 ml/min; Est GFR (Non-African American) 13.1 ml/min; Potassium 4.8 mmol/L (3.5-5.1)
[2023-05-02] MEDS: ONDANSETRON 4 MG OD TAB PO PRN (11:43)
[2023-05-02] MEDS: PROMETHAZINE HCL 25 MG TAB PO PRN (11:43)
[2023-05-02] MEDS: GLUCAGON FOR INJ 1 MG VIAL SQ PRN (16:20)
[2023-05-02] MEDS: CARBOHYDRATES FOR HYPOGLYCEMIA PO PRN (16:38)
[2023-05-02] MEDS ORDERED: HYDROCORTISONE SOD 100 MG in SYRINGE 0 ML IV ONE (17:00)
[2023-05-02] MEDS: ATORVASTATIN 40 MG TAB PO SCH (20:12)
[2023-05-02] MEDS: allopurinoL 100 MG TAB PO SCH (20:12)
[2023-05-02] MEDS: VENLAFAXINE HCL XR 75 MG CAPXR PO SCH (20:12)
[2023-05-03] MEDS: HEPARIN SOD 5,000 UNIT/0.5 ML VIAL SQ SCH ×3 (05:31→22:58)
[2023-05-03] MEDS: PANTOprazole 40 MG TAB PO SCH (05:31)
[2023-05-03 06:44] LABS: BUN Creatinine Ratio 5.6 (10-20); Calcium 8.9 mg/dl (8.6-10.3); Creatinine Clr Calc Pharmacy 13.6 ml/min; Est GFR (African American) 11.8 ml/min; Est GFR (Non-African American) 10.2 ml/min
[2023-05-03] MEDS ORDERED: SODIUM CHLORIDE 0.9% 1000ML 1,000 ML IV PRN (07:00)
[2023-05-03] MEDS: CARBOHYDRATES FOR HYPOGLYCEMIA PO PRN ×2 (07:18→16:41)
[2023-05-03] MEDS: DEXTROSE 50% 50 ML SYRINGE IV PRN ×2 (07:42→17:11)
--- NOTE | 2023-05-03 10:50 | Dialysis Progress Note ---
Date of Service May 03, 2023 Assessment & Plan Admission and Anticipated Discharge Date Admission Date: April 30, 2023 Subjective Assessment & Plan (1) ESRD on dialysis: Plan: chemistries > K and sodium in acceptable range, though down trend in sodium and increasing SBP show he is trending to mild overload. Next HD for 05/03 as IP or OP will continue to work w/ outpt dialysis team on best fluid removal targets for this challenging patient. note improved EF on TTE and HF team recommendations to d/c entresto w/ close f/u na low at 127 today--reflection of no dialysis for 3 days and fluid retention. As long as na 125+ no further action needed. Subjective seen on Dialysis. Did not really answe rmy questions. No dizziness; no sob; N controlled. going for 3 liters today. qb 300. Review of Systems Review of Systems: All systems reviewed & are unremarkable except as noted in Subjective Physical Exam Constitutional: well developed and well nourished Eyes: EOM intact bilaterally ENMT: Ears: no external ear abnormality Nose: no external nose abnormality Mouth: + dry oral mucous membranes Neck: no nuchal rigidity Respiratory: normal respiratory effort Auscultation: + diminished lung sounds Cardiovascular: RRR, no murmur, no edema Gastrointestinal (Abdomen): Inspection/Auscultation: normal bowel sounds Percussion/Palpation: abdomen soft; abdomen nontender Musculoskeletal: Extremities: strength 5/5 throughout Skin: no rashes, warm and dry Results & Data Vital Signs (Past 12 Hours) Vital Signs Temp Pulse Pulse Pulse Resp BP BP 05/03/23 10:00 76 116/74 05/03/23 09:30 77 163/82 H 05/03/23 09:03 74 156/92 H 05/03/23 08:56 36.5 C 76 05/03/23 07:26 74 05/03/23 07:42 76 18 178/88 H 05/03/23 03:47 36.4 C L 74 17 160/83 H 05/03/23 02:44 36.5 C 73 16 156/72 H 05/02/23 23:23 36.8 C 75 20 136/67 Pulse Ox O2 Del Method 05/03/23 10:00 05/03/23 09:30 05/03/23 09:03 05/03/23 08:56 05/03/23 07:26 05/03/23 07:42 96 Room Air 05/03/23 03:47 95 Room Air 05/03/23 02:44 94 Room Air 05/02/23 23:23 92 Room Air
[2023-05-03] MEDS: ONDANSETRON 4 MG OD TAB PO PRN (13:37)
[2023-05-03] MEDS ORDERED: PROMETHAZINE HCL 12.5 MG in SODIUM CHLORIDE 0.9% 50 ML IV ONE (14:00)
[2023-05-03] MEDS: carvediloL 6.25 MG TAB PO SCH ×2 (14:22→18:23)
[2023-05-03] MEDS: FAMOTIDINE 20 MG TAB PO SCH (14:23)
[2023-05-03] MEDS: buPROPion SR 100 MG TABCR PO SCH (14:23)
[2023-05-03] MEDS: AMIODARONE 200 MG TAB PO SCH ×2 (14:23→20:05)
--- NOTE | 2023-05-03 14:34 | Hospitalist Progress Note ---
Date of Service May 03, 2023 Assessment & Plan (1) Syncope: Plan: Patient presents with reportedly syncopal episode lasting ~15 seconds with weak or absent pulse- unable to clarify any further details. This occurred after dialysis. IN the past the pt has had issues with hypotension, had entresto held in the past recently restarted, repeat echocardiogram shows preserved ejection fraction therefore we will stop Entresto at this time. blood pressures have gone up will restart carvedilol. heart failure reduced ejection fraction has resolved with rate controlling A- fib still remains with heart failure preserved ejection fraction chronic and stable toxic encephalopathy from Marinol subsequently resolved with stopping Marinol (2) Hypoglycemia: Plan: Acute on chronic- intermittently getting D50/glucogon- family reports frequently occurs at home seems to started sometime around November 2022 - normal a.m. cortisol, pending insulin growth factor and insulin levels will be checked due to persistent confusion CT head was checked which was negative. 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 Attempts to control nausea will include promethazine and olanzapine. 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 Subsequently I think at some point will enter palliative care discussions but this point time she rhe but at my request to talk to palliative care provider while in the hospital (4) Elevated troponin: Plan: Likely demand from today's events - however is in a patient with ESRD- but as above no CP and no STEMI on ECG 30.6-23.5-51.7 (5) Atrial fibrillation: Plan: Chronic stable in NSR at this time restarting coreg at 6.25 bid 05/02/23 - Follow on telemetry as above- (6) Congestive heart failure: Plan: Chronic heart failure preserved ejection fraction watching volume status with dialysis improved heart failure with rate controlled A-fib echocardiogram shows ejection fraction has improved with rate control Entresto has been discontinued (7) V-tach: Plan: History of such requiring cardioversion- remains on amiodarone now coreg - as above follow on telemetry optimize electrolytes Plan persistent hospitalization due to recurrent hypoglycemic episodes which are symptomatic Admission and Anticipated Discharge Date Admission Date: April 30, 2023 Subjective patient continues have issues with intermittent hypoglycemia which is significant and also persistent nausea vomiting and decreased p.o. intake spoke with endocrinology regarding awaiting the insulin levels to return patient is persistently nauseated Physical Exam Physical Exam: Patient lying flat in the bed no signs of shortness of breath cardiac exam is regular his lungs are with some diminished sounds at the bases with rhonchi otherwise clear Extremities are with trace edema He is in no cardiopulmonary distress at this time Results & Data Results & Data Vital Signs (Past 12 Hours) Vital Signs Temp Pulse Pulse Pulse Resp BP BP 05/03/23 12:50 88 117/87 05/03/23 13:15 97.5 F L 85 181/75 H 05/03/23 12:30 89 135/100 05/03/23 12:00 87 126/59 L 05/03/23 11:30 87 112/61 05/03/23 11:00 82 118/83 05/03/23 10:30 77 138/77 05/03/23 10:00 76 116/74 05/03/23 09:30 77 163/82 H 05/03/23 09:03 74 156/92 H 05/03/23 08:56 97.7 F 76 05/03/23 07:26 74 05/03/23 07:42 76 18 178/88 H 05/03/23 03:47 97.5 F L 74 17 160/83 H 05/03/23 02:44 97.7 F 73 16 156/72 H Pulse Ox O2 Del Method 05/03/23 12:50 05/03/23 13:15 05/03/23 12:30 05/03/23 12:00 05/03/23 11:30 05/03/23 11:00 05/03/23 10:30 05/03/23 10:00 05/03/23 09:30 05/03/23 09:03 05/03/23 08:56 05/03/23 07:26 05/03/23 07:42 96 Room Air 05/03/23 03:47 95 Room Air 05/03/23 02:44 94 Room Air PG Care Time/CCT Total # of Minutes Spent Total Time Spent with Patient: Total time spent is greater than 50% in coordination of care (as documented) at patient's floor/unit and/or counseling patient: Coding Level of Care Code 18978 SUB INP/OBS CARE 3/50MIN Diagnoses Syncope R55 Syncope type: unspecified Hypoglycemia E16.2 ESRD on dialysis N18.6; Z99.2 Elevated troponin R77.8 Atrial fibrillation I48.91 Congestive heart failure I50.9 V-tach I47.20 (1) Syncope Syncope type: unspecified Qualified Code(s): R55 - Syncope and collapse
[2023-05-03] MEDS: PROMETHAZINE HCL 25 MG TAB PO PRN (17:00)
[2023-05-03] MEDS: ATORVASTATIN 40 MG TAB PO SCH (20:06)
[2023-05-03] MEDS: allopurinoL 100 MG TAB PO SCH (20:06)
[2023-05-03] MEDS: VENLAFAXINE HCL XR 75 MG CAPXR PO SCH (20:06)
[2023-05-03] MEDS: LORazepam 1 MG TAB PO PRN (20:15)
[2023-05-03] MEDS ORDERED: OLANZapine ZYDIS 5 MG ORALLY DIS. TAB PO SCH (21:00)
[2023-05-04] MEDS: DEXTROSE 50% 50 ML SYRINGE IV PRN ×4 (04:29→20:33)
[2023-05-04] MEDS: HEPARIN SOD 5,000 UNIT/0.5 ML VIAL SQ SCH ×3 (05:40→21:38)
[2023-05-04] MEDS: PANTOprazole 40 MG TAB PO SCH (05:40)
[2023-05-04 06:49] LABS: Albumin Globulin Ratio 1.1 (0.9-2); Albumin Level 2.5 gm/dl (3.4-5.0); BUN Creatinine Ratio 3.6 (10-20); Bilirubin,Total 0.7 mg/dl (0.2-1.0); Calcium 8.4 mg/dl (8.6-10.3); Creatinine Clr Calc Pharmacy 22.7 ml/min; Est GFR (African American) 21.9 ml/min; Est GFR (Non-African American) 18.9 ml/min; Globulin 2.2 gm/dl (2.5-4.0); Potassium 3.5 mmol/L (3.5-5.1); Total Protein 4.7 gm/dl (6.0-8.3)
[2023-05-04 07:31] LABS: Estimated Average Glucose 85 mg/dl; Hemoglobin A1C 4.6 % (4.5-5.6)
[2023-05-04] MEDS ORDERED: PROMETHAZINE HCL 25 MG TAB PO PRN (07:33)
[2023-05-04] MEDS ORDERED: FAMOTIDINE 20 MG in SYRINGE 3 ML IV SCH (09:00)
[2023-05-04] MEDS: carvediloL 6.25 MG TAB PO SCH ×2 (09:29→17:38)
[2023-05-04] MEDS: buPROPion SR 100 MG TABCR PO SCH (09:30)
[2023-05-04] MEDS: AMIODARONE 200 MG TAB PO SCH ×2 (09:30→20:36)
[2023-05-04] MEDS: METOCLOPRAMIDE HCL 5 MG TABLET PO SCH ×3 (10:55→17:38)
--- NOTE | 2023-05-04 13:38 | Hospitalist Progress Note ---
Date of Service May 04, 2023 Assessment & Plan (1) Hypoglycemia: Plan: Acute on chronic- intermittently getting D50/glucogon- family reports frequently occurs at home seems to started sometime around November 2022 - normal a.m. cortisol, pending insulin growth factor and insulin levels will be checked due to persistent confusion CT head was checked which was negative. 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 This occurred after dialysis. IN the past the pt has had issues with hypotension, had entresto held in the past recently restarted, repeat echocardiogram shows preserved ejection fraction therefore we will stop Entresto at this time. blood pressures have gone up will restart carvedilol. heart failure reduced ejection fraction has resolved with rate controlling A- fib still remains with heart failure preserved ejection fraction chronic and stable toxic encephalopathy from Marinol subsequently resolved with stopping Marinol, however intermittent confusion with low blood sugars (3) ESRD on dialysis: Plan: Chronic stable on dialysis MWF - Nephrology consultation appreciated (4) Elevated troponin: Plan: Likely demand ischemia- however is in a patient with ESRD- but as above no CP and no STEMI on ECG 30.6-23.5-51.7 (5) Atrial fibrillation: Plan: Chronic stable in NSR at this time restarting coreg at 6.25 bid 05/02/23 - (6) Congestive heart failure: Plan: Chronic heart failure preserved ejection fraction watching volume status with dialysis improved heart failure with rate controlled A-fib echocardiogram shows ejection fraction has improved with rate control Entresto has been discontinued (7) V-tach: Plan: History of such requiring cardioversion- remains on amiodarone now coreg - as above follow on telemetry optimize electrolytes Plan persistent hospitalization due to recurrent hypoglycemic episodes which are symptomatic Admission and Anticipated Discharge Date Admission Date: April 30, 2023 Subjective patient continues have issues with intermittent hypoglycemia which is significant and also persistent nausea vomiting and decreased p.o. intake spoke with endocrinology regarding awaiting the insulin levels to return, however persistent and symptomatic, accepted in transfer to [facility] Dr Quevedo patient is persistently nauseated and cannot eat meaningful calories Physical Exam Physical Exam: Patient lying flat in the bed no signs of shortness of breath cardiac exam is regular his lungs are with some diminished sounds at the bases with rhonchi otherwise clear Extremities are with trace edema He is in no cardiopulmonary distress at this time Results & Data Results & Data Vital Signs (Past 12 Hours) Vital Signs Temp Pulse Pulse Pulse Resp BP Pulse Ox 05/04/23 11:02 97.9 F 72 19 184/88 H 96 05/04/23 07:33 82 05/04/23 06:57 98.1 F 79 19 165/79 H 94 05/04/23 02:24 97.7 F 75 20 140/70 96 O2 Del Method 05/04/23 11:02 Room Air 05/04/23 07:33 05/04/23 06:57 Room Air 05/04/23 02:24 Room Air Laboratory Results review cbc review Chemistry PG Care Time/CCT Total # of Minutes Spent Total Time Spent with Patient: Total time spent is greater than 50% in coordination of care (as documented) at patient's floor/unit and/or counseling patient: Coding Level of Care Code 99159 SUB INP/OBS CARE 3/50MIN Diagnoses Hypoglycemia E16.2 Syncope R55 Syncope type: unspecified ESRD on dialysis N18.6; Z99.2 Elevated troponin R77.8 Atrial fibrillation I48.91 Congestive heart failure I50.9 V-tach I47.20 (2) Syncope Syncope type: unspecified Qualified Code(s): R55 - Syncope and collapse
--- NOTE | 2023-05-04 15:44 | Discharge Summary ---
Date of Service May 04, 2023 Admission HPI Per Admitting Provider 62 YO wheelchair bound male with medical history of: HFrEF, VTACH, ESRD (MWF), anemia, BROWN cirrhosis, afib/PAF, HLD, Gout, DM, CAD with STENTS and CABG, ELLA (noncompliant with CPAP), Depression. Patient was brought to the EMD today from dialysis for what sounds like a syncopal event. Patient reports that he remembers getting dialysis and then waking up with everyone around him yelling his name. He does endorse that he does remember feeling dizzy prior to and this time was not associated with chest pain or difficulty breathing. He is lifted from dialysis chair to his electric wheel chair via lift. Patient reportedly never had CPR started and was reported as weak or possible no pulse for ~ 15 seconds. In the EMD the patient had routine labs performed to include HScTNI, CXR performed and ECG. His HScTNI was 23 in the EMD which is difficult to interpret in gentlemen with poor EF as well as ESRD- his ECG was negative for any ST elevation and he is without chest pain. [facility] of vital signs. Will need to evaluate for dysrhythmia. Overall the patient has had complex medical problems, which appear to stem back to November 2022- where he was started on Dialysis- he remains with tunneled dialysis line to his right SCL(reportedly this was recently changed out at [facility] secondary to other catheter not flowing). He has also had admissions related to PAF/Vtach- he was cardioverted and required intubation in December for symptomatic atrial fib- he was initiated on IV ammiodarone and remains on oral Amiodarone at this time- this was also associated with a decreas in his EF to 20-25%. He was transitioned to carvidelol and entresto as well, however has been difficult secondary to hypotension. Family reports that they do check his BP at home and he is very labile at times 130 and then 90 or less for systollic as well as at times HR less than 60. reports that she may give him his Carvedilol 2 x per week. He has not had further follow up or discussions regarding an AICD. He is also dealing with chronic nausea and vomitting and is multiple antiemetics as well as having an EGD in January that was notable for hiatal hernia as well as gastritis. He is on PPI and H2 kris. Patient states that food just does not taste good and makes him throw up. Family reports multiple episodes of hypoglycemia at home secondary to not eating. CODE: FULL COVID: NEGATIVE Principal Diagnosis persistent hypoglycemia esrd diastolic heart failure Discharge Data Allergies Allergy/AdvReac Type Severity Reaction Status Date / Time oxycodone [From Percocet] Allergy Intermediate Itching Verified 04/28/23 17:06 promethazine [From Phenergan] AdvReac Intermediate Makes Verified 04/28/23 17:06 "mean" simvastatin [From Zocor] AdvReac Intermediate Headache Verified 04/28/23 17:06 Consultations 04/28/23 17:09 ED Decision to Admit Stat 04/28/23 20:50 Consult Nephrology Routine 04/29/23 08:11 [facility] Referral Routine Ordered Studies 05/01/23 18:00 CT head/brain wo con Routine Hospital Course (1) Hypoglycemia: Acute on chronic- intermittently getting D50/glucogon- family reports frequently occurs at home seems to started sometime around November 2022 - normal a.m. cortisol, pending insulin growth factor and insulin levels will be checked due to persistent confusion CT head was checked which was negative. 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 This occurred after dialysis. IN the past the pt has had issues with hypotension, had entresto held in the past recently restarted, repeat echocardiogram shows preserved ejection fraction therefore we will stop Entresto at this time. blood pressures have gone up will restart carvedilol. heart failure reduced ejection fraction has resolved with rate controlling A- fib still remains with heart failure preserved ejection fraction chronic and stable toxic encephalopathy from Marinol subsequently resolved with stopping Marinol, however intermittent confusion with low blood sugars (3) ESRD on dialysis: Chronic stable on dialysis MWF - Nephrology consultation appreciated (4) Elevated troponin: Likely demand ischemia- however is in a patient with ESRD- but as above no CP and no STEMI on ECG 30.6-23.5-51.7 (5) Atrial fibrillation: Chronic stable in NSR at this time restarting coreg at 6.25 bid 05/02/23 - (6) Congestive heart failure: Chronic heart failure preserved ejection fraction watching volume status with dialysis improved heart failure with rate controlled A-fib echocardiogram shows ejection fraction has improved with rate control Entresto has been discontinued (7) V-tach: History of such requiring cardioversion- remains on amiodarone now coreg - as above follow on telemetry optimize electrolytes Plan persistent hospitalization due to recurrent hypoglycemic episodes which are symptomatic Total Time Total Time Spent Total Time Spent (In Minutes): discharge overnight see daytime note for remainder of visit, it took greater than 30 minutes for discharge prep Discharge Plan Discharge Items Patient Disposition: Transfer Acute Care Hospital Reason For Visit: SYNCOPE Discharge Diagnosis: persistent hypoglycemia post dialysis hypotension medication affect Activity: Per Instructions section Non-emergency contact: Primary Care Provider and Specialist Call non-emergency contact if: your symptoms worsen Follow-up/Referrals: Pro,Yoandy Whitley MD [Primary Care Provider] - Mariana Guardado PA-C [Physician Certified Medical Aide] - 05/07/23 10:30 am Diet: Dialysis Renal Addtl Attending Provider Instructions: this pt has had persistent hypoglycemia, aic of 4.6 without ability to do inhouse insulin, this was a sent out has had persistant symptoms and n/v plus likely gastroparesis did limit ability to take po, limited response to glucogon, hdrocortisone and only improved if on dextrose infusion. also limited by some underlying liver disease Pending Studies at Discharge: No Stand-Alone Forms: [employer], Smoking Cessation Skilled Items Patient informed of condition?: Yes DNR: No Discharge Level of Care: Other Communicable Disease: No Discharge Prognosis: Stable Lines: Peripheral IV Urinary Catheter: No Medications and DC Order Prescriptions: New carvedilol 6.25 mg Tablet 6.25 mg PO BIDM Qty: 60 0RF famotidine 20 mg Tablet 20 mg PO BID Qty: 60 0RF Continued B complex with C 20-folic acid 1 mg capsule 1 cap PO HS Qty: 30 5RF Saccharomyces boulardii [Florastor] 250 mg capsule 250 mg PO BID Qty: 60 5RF atorvastatin 40 mg tablet 40 mg PO HS Qty: 90 3RF bupropion HCl 100 mg tablet sustained-release 12 hr 100 mg PO DAILY Qty: 90 3RF venlafaxine 225 mg tablet extended release 24hr 225 mg PO HS Qty: 90 3RF metoclopramide HCl 5 mg tablet 2.5 mg PO TIDM Qty: 135 1RF amiodarone 200 mg tablet 200 mg PO BID Qty: 180 3RF ondansetron 4 mg tablet,disintegrating 4 mg PO TID PRN (Reason: Nausea) Qty: 270 1RF colesevelam [WelChol] 625 mg tablet 1,875 mg PO BIDM Qty: 540 1RF nystatin 100,000 unit/gram cream 1 appln TOP BID PRN (Reason: Skin Irritation) Patient Comments: to foot and groin ; Rx Instructions: APPLY TO GROIN & BETWEEN TOES. famotidine [Pepcid] 20 mg tablet 20 mg PO 3XWK Rx Instructions: MON, WED, & FRI. darbepoetin tye in polysorbat 100 mcg/0.5 mL syringe 10 mcg subcut WK lorazepam 1 mg tablet 1 mg PO HS PRN (Reason: Sleep) nitroglycerin 0.4 mg tablet, sublingual 0.4 mg SL DIRECTED PRN (Reason: Chest Pain) Rx Instructions: NEEDED FOR CHEST PAIN : ONE TABLET UNDER THE TONGUE EVERY 5 MINUTES UP TO 3 DOSES. promethazine 12.5 mg tablet 12.5 mg PO Q6H PRN (Reason: NAUSEA/VOMITING) Rx Instructions: PER PT'S SO "GIVE ONE IN AM, HAS NOT VOMITTED ALL DAY". omeprazole 40 mg Capsule,Delayed Release(Dr/Ec) 40 mg PO DAILYBB lorazepam 0.5 mg Tablet 0.5 mg PO DIRECTED PRN (Reason: AGITATION/"MEAN".) allopurinol 100 mg tablet 200 mg PO HS Discontinued Entresto 24-26 mg tablet 1 tab PO BID Qty: 180 3RF carvedilol 12.5 mg tablet 12.5 mg PO DIRECTED Rx Instructions: TAKES BID ON MON, WED, & FRI ONLY. HOLD FOR PULSE <60 OR SBP <100 Discharge Orders: Discharge Order (Routine); Ordered 05/04/23 Ordered By: Nikolas Nguyen Admission Data Admit Date/Time: 04/30/23 15:58 Attending Provider: Nikolas Nguyen Admit Provider: Javan Hopper Primary Care Provider: Yoandy Javed Other Providers: Javan Hopper ; Keri Dozier ; Mariana Guardado Other Interventions: Discharge Summary Assessment (RN) Last Done: 05/04/23 23:41 Coding Level of Care Code 88515 INP/OBS DISCH >30 MIN Diagnoses Hypoglycemia E16.2 Syncope R55 Syncope type: unspecified ESRD on dialysis N18.6; Z99.2 Elevated troponin R77.8 Atrial fibrillation I48.91 Congestive heart failure I50.9 V-tach I47.20
[2023-05-04] MEDS ORDERED: FAMOTIDINE 20 MG TAB PO SCH (21:00)
[2023-05-04] MEDS ORDERED: VENLAFAXINE HCL XR 150 MG CAPXR PO SCH (21:00)
[2023-05-05] MEDS ORDERED: SODIUM CHLORIDE 0.9% 1000ML 1,000 ML IV PRN (07:00)
--- NOTE | 2023-05-05 11:15 | Coding Query ---
CONGESTIVE HEART FAILURE To Promote full compliance with coding requirements relating to patient care, physician participation is requested in all cases of rn vascular uncertainty. Please assist us with the following questions. A diagnosis of Congestive Heart Failure is documented in the patient's medical record. To accurately code this diagnosis and to compare patient severity, we ask that you specify the type of heart failure by placing an X within the parenthesis (x). SYSTOLIC HEART FAILURE ( ) Acute ( ) Chronic ( ) Acute on Chronic ( ) Rheumatic (xx ) resolved DIASTOLIC HEART FAILURE ( ) Acute ( xx) Chronic ( ) Acute on Chronic ( ) Rheumatic ( ) Unknown COMBINED SYSTOLIC AND DIASTOLIC HEART FAILURE ( ) Acute ( ) Chronic ( ) Acute on Chronic ( ) Rheumatic ( ) Unknown Was the CHF Present On Admission? Please check the appropriate box: (xx ) Present on Admission ( ) Not Present On Admission ( ) Clinically undetermined Thank you Anuel BILLINGS
[2023-05-06 11:37] LABS: ILGF1 Z-Score Female DNR
[2023-05-07 15:02] LABS: C-Peptide 15.05 ng/mL (0.80-3.85)
== END 2023-05-04 23:54 | disposition short-term general hospital (02) | DRG 637 ==
LOC: ED 15:05 → 2E 15:05 → SUATTDRO 18:15 → 2E 20:34

== ENCOUNTER 2023-05-21 07:07 | Inpatient (IN) ==
--- NOTE | 2023-05-21 07:47 | Emergency Department Note ---
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 Impression & Plan Altered mental status, End stage renal disease on dialysis, Lab test negative for COVID-19 virus, Elevated troponin, Hypoglycemia, Metabolic encephalopathy Discharge Plan Visit Data Chief Complaint: Altered Mental Status ED Provider: Arpit Blunt Discharge Problem: Altered mental status, End stage renal disease on dialysis, Lab test negative for COVID-19 virus, Elevated troponin, Hypoglycemia, Metabolic encephalopathy Patient Disposition: Admitted As Inpatient Discharge Instructions Interventions: ED Discharge Assessment Last Done: 05/21/23 12:33
--- NOTE | 2023-05-21 08:28 | XRay Report ---
SINGLE VIEW CHEST CLINICAL HISTORY: Sepsis. FINDINGS: 2 AP, portable, upright chest radiographs are compared to study dated 04/28/2023. A right int ernal jugular central venous catheter is unchanged in position. The patient is status post midline st ernotomy. The heart is enlarged noting atherosclerotic calcification of the thoracic aorta. The pulmo nary vasculature is noncongested. Chronic interstitial thickening is similar to previous. There are l ow lung volumes with bibasilar atelectasis. No airspace consolidation or large pleural effusion is id entified. No pneumothorax is seen. The skeletal structures are osteopenic. The bony thorax is grossly intact. Cholecystectomy clips are seen in the right upper quadrant. IMPRESSION: 1. Cardiomegaly without radiographic evidence of congestive failure. 2. Low lung volumes with bibasilar atelectasis. ACT 112: Negative or not required by law. Electronically signed by: Lane Escobar M.D. 05/21/2023 8:27 AM
[2023-05-21 08:55] LABS: Albumin Level 1.9 gm/dl (3.4-5.0); BUN Creatinine Ratio 4.9 (10-20); Bilirubin Direct 0.3 mg/dl (0-0.2); Bilirubin,Total 0.7 mg/dl (0.2-1.0); Calcium 7.5 mg/dl (8.6-10.3); Est GFR (African American) 19.3 ml/min; Est GFR (Non-African American) 16.7 ml/min; Magnesium 1.8 mg/dl (1.7-2.4); Potassium 3.6 mmol/L (3.5-5.1); Total Protein 3.9 gm/dl (6.0-8.3)
[2023-05-21 09:05] LABS: Hematocrit (blood only) 24.1 % (42.0-52.0); Hemoglobin 8.3 g/dl (14.0-18.0); Mean Corpuscular Hemoglobin 31.2 pg (25.0-34.0); Mean Corpuscular Hgb Conc 34.4 g/dL (32.0-36.0); Mean Corpuscular Volume 90.6 fL (80.0-100.0); RDW Coefficient of Variation 17.4 % (11.5-14.5); RDW Standard Deviation 55.4 fL (36.4-46.3); Red Blood Count 2.66 M/uL (4.70-6.10); Troponin I High Sensitivity 102.1 pg/ml (0-20); White Blood Count 7.54 K/ul (4.8-10.8)
--- NOTE | 2023-05-21 09:18 | CT Scan Report ---
CT SCAN OF THE BRAIN WITHOUT IV CONTRAST CLINICAL HISTORY: Change in mental status. COMPARISON STUDY: CT of the brain dated 05/01/2023. TECHNIQUE: Unenhanced axial CT scan of the brain is performed from the vertex to the skull base. A do se lowering technique was utilized adhering to the principles of ALARA. The patient was scanned twice due to motion artifact. CT DOSE: 1250.21 mGy.cm FINDINGS: Brain parenchyma: There is age-related involutional change noting moderate subcortical and periventri cular microangiopathic disease. There is no hemorrhage, mass effect, or evidence of acute territorial ischemia by CT criteria. There is a chronic lacunar infarct in the left basal ganglia. Luz-white ma tter differentiation is preserved. No extra-axial fluid collection is seen. Ventricles, sulci, cisterns: Prominent secondary to involutional change. Intracranial vasculature: There is atherosclerotic calcification of the cavernous carotid and vertebr al arteries. Calvarium: Unremarkable. Sinuses and mastoids: The paranasal sinuses are clear. The mastoid air cells are well pneumatized. Orbits: The bony orbits are grossly intact. IMPRESSION: There is no hemorrhage, mass effect, or evidence of acute territorial ischemia by CT krystlet carlos noting a motion degraded examination. ACT 112: Negative or not required by law. Electronically signed by: Lane Escobar M.D. 05/21/2023 9:17 AM
[2023-05-21 09:23] LABS: Basophils # (auto) 0.04 K/uL (0-0.2); Basophils % (auto) 0.5 %; Immature Granulocytes % (auto) 1.3 %; Lymphocytes # (auto) 1.27 K/uL (1.2-3.4); Lymphocytes % (auto) 16.8 %; Mean Platelet Volume 12.1 fL (9.4-12.4); Monocytes # (auto) 0.49 K/uL (0.11-0.59); Monocytes % (auto) 6.5 %; Neutrophils # (auto) 5.64 K/uL (1.40-6.50); Neutrophils % (auto) 74.9 %; Platelet Count 98 K/uL (130-400); Platelet Estimate Decreased (Normal)
[2023-05-21] MEDS ORDERED: DEXTROSE 50% 50 ML SYRINGE IV ONE (09:33)
[2023-05-21] MEDS ORDERED: PANTOprazole 80 MG in DEXTROSE 5% 100 ML IV STA (10:19)
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
[2023-05-21] MEDS ORDERED: GLUCAGON FOR INJ 1 MG VIAL SQ PRN (10:47)
[2023-05-21] MEDS ORDERED: GLUCOSE 10 TAB/TUBE PO PRN (10:47)
[2023-05-21] MEDS ORDERED: GLUCOSE 40% GEL 15 GM TUBE PO PRN (10:47)
[2023-05-21 10:58] LABS: Base Excess ABG 11.2 mEq/L (-9-1.8); HCO3 ABG 35 mmol/L (19-24); Oxygen Saturation ABG 97.1 % (90-95); PCO2 ABG 42 mmHg (35-46); PO2 ABG 73 mmHg (80-95)
[2023-05-21] MEDS ORDERED: INSULIN ASPART PER UNIT CHARGE SC SCH (11:00)
[2023-05-21 11:03] LABS: Allen Test POS (Pos)
[2023-05-21 11:04] LABS: pH ABG 7.53 (7.35-7.45)
[2023-05-21] MEDS ORDERED: SODIUM CHLORIDE 0.9% 1000ML 500 ML IV ONE (11:24)
[2023-05-21] MEDS: DEXTROSE 50% 50 ML SYRINGE IV PRN (11:42)
[2023-05-21 11:45] LABS: Troponin I High Sensitivity 96.3 pg/ml (0-20)
[2023-05-21 12:06] LABS: Phosphorus 3.2 mg/dl (2.5-4.9)
[2023-05-21] MEDS ORDERED: HYDROCORTISONE SOD SUCCINATE 100 MG/2 ML VIAL IV SCH (13:00)
--- NOTE | 2023-05-21 13:51 | Electrocardiogram Report ---
Test Reason : Blood Pressure : / mmHG Vent. Rate : 081 BPM Atrial Rate : 081 BPM P-R Int : 254 ms QRS Dur : 130 ms QT Int : 452 ms P-R-T Axes : 062 020 093 degrees QTc Int : 525 ms Sinus rhythm with 1st degree A-V block Non-specific intra-ventricular conduction block Diffuse Minor Nonspecific T wave abnormality Abnormal ECG When compared with ECG of 30-APR-2023 05:23, No significant change Confirmed by Saul Headley ([id number]) on 05/21/2023 1:50:49 PM Referred By: REFERRED SELF Confirmed By:Saul Headley
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
[2023-05-21 15:43] LABS: Hemoglobin 8.3 g/dl (14.0-18.0)
[2023-05-21] MEDS ORDERED: LORazepam 1 MG TAB PO PRN (17:56)
[2023-05-21 19:34] LABS: A calco-baum cmplx NotReported Not Detected (NotDetected); Bact fragilis Not Reported Not Detected (NotDetected); C auris Not Reported Not Detected (NotDetected); Calbicans Not Reported Not Detected (NotDetected); Candida glabrata Not Reported Not Detected (NotDetected); Candida krusei Not Reported Not Detected (NotDetected); Cneoformans/gatti Not Reported Not Detected (NotDetected); Cparapsilosis Not Reported Not Detected (NotDetected); Ctropicalis Not Reported Not Detected (NotDetected); E cloacae compx Not Reported Not Detected (NotDetected); Efaecalis Not Reported Not Detected (NotDetected); Efaecium Not Reported Not Detected (NotDetected); Enterobacterales Not Reported Not Detected (NotDetected); Escherichia coli Not Reported Not Detected (NotDetected); H influenzae Not Reported Not Detected (NotDetected); K aerogenes Not Reported Not Detected (NotDetected); Koxytoca Not Reported Not Detected (NotDetected); Kpneumoniae grp Not Reported Not Detected (NotDetected); Lmonocyt Not Reported Not Detected (NotDetected); N meningitidis Not Reported Not Detected (NotDetected); P aeruginosa Not Reported Not Detected (NotDetected); Proteus spp Not Reported Not Detected (NotDetected); Salmonella spp Not Reported Not Detected (NotDetected); Smarcescens Not Reported Not Detected (NotDetected); Staph lugdunensis Not Reported Not Detected (NotDetected); Staph spp. Not Reported Not Detected (NotDetected); Staphaureus Not Reported Not Detected (NotDetected); Staphepi Not Reported Not Detected (NotDetected); Stenmaltophilia Not Reported Not Detected (NotDetected); Strep agal(GrpB) Not Reported Not Detected (NotDetected); Strep pneum Not Reported Not Detected (NotDetected); Strep pyog (GrpA) Not Reported Not Detected (NotDetected); Strep spp Not Reported Not Detected (NotDetected)
[2023-05-21] MEDS: RASPBERRY SYRUP 5 ML UDP PO SCH (19:53)
[2023-05-21] MEDS: allopurinoL 100 MG TAB PO SCH (19:53)
[2023-05-21] MEDS: AMIODARONE 200 MG TAB PO SCH (19:53)
[2023-05-21] MEDS: VANCOMYCIN HCL 125 MG/2.5ML SOLN PO SCH (19:53)
[2023-05-21] MEDS: PANTOprazole 40 MG in SYRINGE 0 ML IV SCH (19:54)
[2023-05-21] MEDS: carvediloL 6.25 MG TAB PO SCH (19:54)
[2023-05-21] MEDS: VALSARTAN/SACUBITRIL 26/24MG TAB PO SCH (19:55)
[2023-05-21] MEDS: HYDROCORTISONE SOD 10 MG in SYRINGE 0 ML IV SCH (19:55)
[2023-05-21] MEDS: CARBOHYDRATES FOR HYPOGLYCEMIA PO PRN (20:02)
[2023-05-21] MEDS: VENLAFAXINE HCL XR 75 MG CAPXR PO SCH (20:53)
[2023-05-21 22:29] LABS: Hematocrit (blood only) 25.3 % (42.0-52.0); Hemoglobin 8.3 g/dl (14.0-18.0)
[2023-05-22] MEDS: RASPBERRY SYRUP 5 ML UDP PO SCH ×4 (00:11→17:53)
[2023-05-22] MEDS: VANCOMYCIN HCL 125 MG/2.5ML SOLN PO SCH ×3 (00:11→17:53)
[2023-05-22 03:40] LABS: A calco-baum cmplx NotReported Not Detected (NotDetected); Bact fragilis Not Reported Not Detected (NotDetected); C auris Not Reported Not Detected (NotDetected); Calbicans Not Reported Not Detected (NotDetected); Candida glabrata Not Reported Not Detected (NotDetected); Candida krusei Not Reported Not Detected (NotDetected); Cneoformans/gatti Not Reported Not Detected (NotDetected); Cparapsilosis Not Reported Not Detected (NotDetected); Ctropicalis Not Reported Not Detected (NotDetected); E cloacae compx Not Reported Not Detected (NotDetected); Efaecalis Not Reported DETECTED (NotDetected); Efaecium Not Reported DETECTED (NotDetected); Enterobacterales Not Reported Not Detected (NotDetected); Escherichia coli Not Reported Not Detected (NotDetected); H influenzae Not Reported Not Detected (NotDetected); K aerogenes Not Reported Not Detected (NotDetected); Koxytoca Not Reported Not Detected (NotDetected); Kpneumoniae grp Not Reported Not Detected (NotDetected); Lmonocyt Not Reported Not Detected (NotDetected); N meningitidis Not Reported Not Detected (NotDetected); P aeruginosa Not Reported Not Detected (NotDetected); Proteus spp Not Reported Not Detected (NotDetected); Salmonella spp Not Reported Not Detected (NotDetected); Smarcescens Not Reported Not Detected (NotDetected); Staph lugdunensis Not Reported Not Detected (NotDetected); Staph spp. Not Reported Not Detected (NotDetected); Staphaureus Not Reported Not Detected (NotDetected); Staphepi Not Reported Not Detected (NotDetected); Stenmaltophilia Not Reported Not Detected (NotDetected); Strep agal(GrpB) Not Reported Not Detected (NotDetected); Strep pneum Not Reported Not Detected (NotDetected); Strep pyog (GrpA) Not Reported Not Detected (NotDetected); Strep spp Not Reported Not Detected (NotDetected)
[2023-05-22 03:46] LABS: Enterococcus faecalis DETECTED (NotDetected); Enterococcus faecium DETECTED (NotDetected); VanAB Resistant Gene VRE DETECTED (NotDetected)
[2023-05-22 04:42] LABS: Alanine Aminotransferase 45 U/L (7-52); Albumin Level 1.9 gm/dl (3.4-5.0); Alkaline Phosphatase 98 U/L (34-104); BUN Creatinine Ratio 3.5 (10-20); Bilirubin,Total 0.9 mg/dl (0.2-1.0); Blood Urea Nitrogen 8 mg/dl (6-23); Calcium 7.2 mg/dl (8.6-10.3); Carbon Dioxide 30 mmol/L (21-32); Chloride 103 mmol/L (98-107); Creatinine Clr Calc Pharmacy 33.5 ml/min; Est GFR (African American) 34.1 ml/min; Est GFR (Non-African American) 29.4 ml/min; Glucose 70 mg/dl (70-99(Fasting)); Total Protein 3.9 gm/dl (6.0-8.3)
[2023-05-22 06:07] LABS: Magnesium 1.8 mg/dl (1.7-2.4); Potassium 4.3 mmol/L (3.5-5.1)
[2023-05-22 06:16] LABS: INR 1.2 (0.9-1.1); Prothrombin Time 13.3 Seconds (9.0-12.0)
[2023-05-22] MEDS: METOCLOPRAMIDE HCL 5 MG TABLET PO SCH ×3 (07:42→16:51)
[2023-05-22] MEDS: CARBOHYDRATES FOR HYPOGLYCEMIA PO PRN ×2 (07:45→08:06)
[2023-05-22] MEDS: PANTOprazole 40 MG in SYRINGE 0 ML IV SCH ×2 (08:45→20:39)
[2023-05-22] MEDS: HYDROCORTISONE SOD 10 MG in SYRINGE 0 ML IV SCH (08:45)
[2023-05-22] MEDS: VALSARTAN/SACUBITRIL 26/24MG TAB PO SCH ×2 (08:48→20:39)
[2023-05-22] MEDS: carvediloL 6.25 MG TAB PO SCH ×2 (08:48→20:38)
[2023-05-22] MEDS: AMIODARONE 200 MG TAB PO SCH ×2 (08:49→20:38)
[2023-05-22] MEDS ORDERED: VANCOMYCIN CONSULT ACTIVE PRN ×2 (09:56)
[2023-05-22] MEDS ORDERED: VANCOMYCIN HCL 2,000 MG in SODIUM CHLORIDE 0.9% 500 ML IV ONE (10:15)
[2023-05-22 10:36] LABS: Basophils # (auto) 0.03 K/uL (0-0.2); Basophils % (auto) 0.4 %; Hematocrit (blood only) 24.1 % (42.0-52.0); Hemoglobin 7.9 g/dl (14.0-18.0); Immature Granulocytes # (auto) 0.04 K/uL (0.01-0.20); Immature Granulocytes % (auto) 0.5 %; Lymphocytes # (auto) 0.99 K/uL (1.2-3.4); Lymphocytes % (auto) 12.9 %; Mean Corpuscular Hemoglobin 30.9 pg (25.0-34.0); Mean Corpuscular Hgb Conc 32.8 g/dL (32.0-36.0); Mean Corpuscular Volume 94.1 fL (80.0-100.0); Mean Platelet Volume 13.1 fL (9.4-12.4); Monocytes # (auto) 0.47 K/uL (0.11-0.59); Monocytes % (auto) 6.1 %; Neutrophils # (auto) 6.16 K/uL (1.40-6.50); Neutrophils % (auto) 80.1 %; Platelet Count 59 K/uL (130-400); Platelet Estimate Decreased (Normal); Polychromasia 1+; RDW Standard Deviation 58.6 fL (36.4-46.3); Red Blood Count 2.56 M/uL (4.70-6.10); Target Cells 1+; White Blood Count 7.69 K/ul (4.8-10.8)
[2023-05-22 10:38] LABS: Hematocrit (blood only) 21.2 % (42.0-52.0)
--- NOTE | 2023-05-22 14:42 | Pharmacy Report ---
Pharmacy [facility] Short Note - Date of Service May 22, 2023 - Assessment & Plan Assessment 62 year old M receiving vancomycin for treatment of bacteremia. Pertinent microbiologic data includes: blood culture culture growing gpc in chains, probable enterococcus ad portable anaerobic gram positive bacilli. Patient ESRD with a M,W,F dialysis schedule. Last HD yesterday and per nephrology note next HD will likely be Wednesday. Day # 1 of antimicrobial therapy. Plan Vancomycin * Loading dose: 2000mg X 1 * Random level ordered for: 05/23/23 with AM labs Pharmacy will continue to follow and will adjust dose/frequency as necessary. Thank you.
--- NOTE | 2023-05-22 16:13 | Hospitalist Progress Note ---
Date of Service May 22, 2023 Assessment & Plan (1) Metabolic encephalopathy: Plan: Present on admission. Now resolved. Supportive care-Admit to the PCU on tele and pulse oximetry (2) Hypoglycemia: Plan: Present on admission. Now resolved. Serial labs. (3) ESRD on dialysis: Plan: [facility] nephrology consultation appreciated. He receives hemodialysis every Wednesday and Wednesday. Serial labs. Monitor intake and output. (4) Acute on chronic anemia: Plan: No overt GI bleeding. Serial labs. Transfuse as necessary. (5) C. difficile diarrhea: Plan: Continue oral vancomycin therapy. Diarrhea has resolved. (6) Elevated troponin: Plan: No evidence of acute coronary syndrome. Denies chest pain . Suspect demand ischemia etiology (7) Paroxysmal atrial flutter: Plan: Stable . Continue amiodarone. Telemetry (8) Hyponatremia: Plan: Mild. No intervention necessary at this time. Serial labs. (9) Congestive heart failure: Plan: Chronic combined systolic and diastolic CHF. No overt CHF at this time. Monitor intake and output. Continue Entresto along with other medications (10) Sacral wound: Plan: Small pressure sore on the sacrum without signs of infection . Wound care nurse assistance appreciated (11) Cirrhosis: Plan: No intervention at this time. Serial labs (12) Hypertension: Plan: Stable. Continue current medical management (13) GERD (gastroesophageal reflux disease): Plan: Stable. Continue intravenous PPI therapy Plan Anticipate eventual discharge to previous living arrangements Admission and Anticipated Discharge Date Admission Date: May 21, 2023 Subjective Alert and oriented. No distress. Blood cultures are positive for gram-positive cocci in chains and possibly some gram-positive bacteria. He is now on intravenous vancomycin along with the oral vancomycin. Infectious disease consultation has been requested. He is steroid-dependent. He is now on intravenous hydrocortisone. He also receives hemodialysis 3 times weekly. Nephrology consultation requested Review of Systems Review of Systems: Constitutional-no fever or chills ENT-no blurred vision, no double vision, no epistaxis, no sore throat Respiratory-no cough, no wheezing, no shortness of breath Cardiac-no palpitations, no chest pain, no syncope GI-no nausea, vomiting, diarrhea, melena, hematochezia -no urinary retention, no urinary incontinence, no dysuria, no hematuria Musculoskeletal-no joint pain, no muscle tenderness Skin-no bruising, no rashes, no pruritus Neuro-no isolated weakness, no paresthesia, no weakness Psych-no depression, no anxiety Physical Exam Physical Exam: General-alert and oriented x3, no fevers, no chills. Obese HEENT-head atraumatic and normocephalic, pupils equal and reactive to light, extraocular muscles intact Neck-no lymphadenopathy or thyromegaly, trachea midline Chest-clear to auscultation percussion. No rales wheezing or rhonchi Cardiac-regular rate and rhythm, normal S1 and S2, no murmurs Abdomen-normal bowel sounds, nontender, no hepatosplenomegaly Extremities-chronic bilateral lower extremity edema below the knees Neuro-cranial nerves II through XII intact, motor and sensory function within normal limits, strength symmetrical with generalized weakness , no focal deficits Psych-flat affect Results & Data Results & Data Vital Signs (Past 12 Hours) Vital Signs Temp Pulse Pulse Resp BP Pulse Ox O2 Del Method 05/22/23 11:49 36.5 C 77 19 162/87 H 97 Room Air 05/22/23 09:56 36.6 C 81 16 139/86 99 Room Air Laboratory Results 05/22/23 09:27 05/22/23 05:27 PG Care Time/CCT Total # of Minutes Spent Total Time Spent with Patient: Total time spent is greater than 50% in coordination of care (as documented) at patient's floor/unit and/or counseling patient: Coding Level of Care Code 17116 SUB INP/OBS CARE 3/50MIN Diagnoses Metabolic encephalopathy G93.41 Hypoglycemia E16.2 ESRD on dialysis N18.6; Z99.2 Acute on chronic anemia D64.9 C. difficile diarrhea A04.72 Elevated troponin R77.8 Paroxysmal atrial flutter I48.92 Hyponatremia E87.1 Congestive heart failure I50.9 Sacral wound S31.000A Cirrhosis K74.60 Hypertension I10 GERD (gastroesophageal reflux disease) K21.9
[2023-05-22] MEDS: PROMETHAZINE HCL 25 MG TAB PO PRN (17:05)
[2023-05-22] MEDS ORDERED: PROMETHAZINE HCL 12.5 MG in SODIUM CHLORIDE 0.9% 50 ML IV PRN (17:42)
[2023-05-22] MEDS: HYDROCORTISONE SOD 25 MG in SYRINGE 0 ML IV SCH (17:53)
[2023-05-22] MEDS ORDERED: RASPBERRY SYRUP 5 ML UDP PO SCH (18:00)
[2023-05-22] MEDS: VENLAFAXINE HCL XR 75 MG CAPXR PO SCH (20:38)
[2023-05-22] MEDS: allopurinoL 100 MG TAB PO SCH (20:38)
[2023-05-23] MEDS: RASPBERRY SYRUP 5 ML UDP PO SCH ×4 (00:15→18:07)
[2023-05-23] MEDS: HYDROCORTISONE SOD 25 MG in SYRINGE 0 ML IV SCH ×3 (00:16→18:08)
[2023-05-23] MEDS: VANCOMYCIN HCL 125 MG/2.5ML SOLN PO SCH ×4 (00:16→18:03)
[2023-05-23 06:00] LABS: Albumin Globulin Ratio 0.9 (0.9-2); Albumin Level 1.8 gm/dl (3.4-5.0); BUN Creatinine Ratio 3.3 (10-20); Bilirubin,Total 0.7 mg/dl (0.2-1.0); Calcium 7.6 mg/dl (8.6-10.3); Creatinine Clr Calc Pharmacy 22.7 ml/min; Est GFR (African American) 21.7 ml/min; Est GFR (Non-African American) 18.8 ml/min; Globulin 2.1 gm/dl (2.5-4.0); Potassium 4.4 mmol/L (3.5-5.1); Total Protein 3.9 gm/dl (6.0-8.3)
[2023-05-23 06:01] LABS: Hematocrit (blood only) 23.1 % (42.0-52.0); Hemoglobin 7.9 g/dl (14.0-18.0); Mean Corpuscular Hemoglobin 31.6 pg (25.0-34.0); Mean Corpuscular Hgb Conc 34.2 g/dL (32.0-36.0); Mean Corpuscular Volume 92.4 fL (80.0-100.0); Mean Platelet Volume 11.5 fL (9.4-12.4); Platelet Count 102 K/uL (130-400); RDW Coefficient of Variation 17.9 % (11.5-14.5); RDW Standard Deviation 58.7 fL (36.4-46.3); White Blood Count 7.53 K/ul (4.8-10.8)
[2023-05-23 06:14] LABS: Basophils # (auto) 0.01 K/uL (0-0.2); Basophils % (auto) 0.1 %; Immature Granulocytes # (auto) 0.03 K/uL (0.01-0.20); Immature Granulocytes % (auto) 0.4 %; Lymphocytes # (auto) 0.69 K/uL (1.2-3.4); Lymphocytes % (auto) 9.2 %; Monocytes # (auto) 0.27 K/uL (0.11-0.59); Monocytes % (auto) 3.6 %; Neutrophils # (auto) 6.53 K/uL (1.40-6.50); Neutrophils % (auto) 86.7 %; RBC Morphology Unremarkable
[2023-05-23] MEDS: PANTOprazole 40 MG in SYRINGE 0 ML IV SCH ×2 (09:19→20:02)
[2023-05-23] MEDS: carvediloL 6.25 MG TAB PO SCH ×2 (09:19→20:02)
[2023-05-23] MEDS: AMIODARONE 200 MG TAB PO SCH ×2 (09:19→20:03)
[2023-05-23] MEDS: METOCLOPRAMIDE HCL 5 MG TABLET PO SCH ×3 (09:20→18:08)
[2023-05-23] MEDS: VALSARTAN/SACUBITRIL 26/24MG TAB PO SCH ×2 (09:20→20:02)
--- NOTE | 2023-05-23 12:19 | Hospitalist Progress Note ---
Date of Service May 23, 2023 Assessment & Plan (1) Metabolic encephalopathy: Plan: Present on admission. Now resolved. Supportive care-Admit to the PCU on tele and pulse oximetry (2) Hypoglycemia: Plan: Present on admission. Now resolved. Serial labs. (3) ESRD on dialysis: Plan: [facility] nephrology consultation appreciated. He receives hemodialysis every Wednesday and Wednesday. Serial labs. Monitor intake and output. (4) Acute on chronic anemia: Plan: No overt GI bleeding. Serial labs. Transfuse as necessary. (5) C. difficile diarrhea: Plan: Continue oral vancomycin therapy. Diarrhea has resolved. Blood culture is positive: repeating cultures. unsure if this is a contaminant, however switching to dapto and flagyl. (6) Elevated troponin: Plan: No evidence of acute coronary syndrome. Denies chest pain . Suspect demand ischemia etiology (7) Paroxysmal atrial flutter: Plan: Stable . Continue amiodarone. Telemetry (8) Hyponatremia: Plan: Mild. No intervention necessary at this time. Serial labs. (9) Congestive heart failure: Plan: Chronic combined systolic and diastolic CHF. No overt CHF at this time. Monitor intake and output. Continue Entresto along with other medications (10) Sacral wound: Plan: Small pressure sore on the sacrum without signs of infection . Wound care nurse assistance appreciated (11) Cirrhosis: Plan: No intervention at this time. Serial labs (12) Hypertension: Plan: Stable. Continue current medical management (13) GERD (gastroesophageal reflux disease): Plan: Stable. Continue intravenous PPI therapy Plan Anticipate eventual discharge to previous living arrangements Admission and Anticipated Discharge Date Admission Date: May 21, 2023 Subjective Patient reports no new symptoms Review of Systems Review of Systems: All systems reviewed & are unremarkable except as noted in HPI & below Physical Exam Physical Exam: General-alert and oriented x3, no fevers, no chills. Obese HEENT-head atraumatic and normocephalic, pupils equal and reactive to light, extraocular muscles intact Neck-no lymphadenopathy or thyromegaly, trachea midline Chest-clear to auscultation percussion. No rales wheezing or rhonchi Cardiac-regular rate and rhythm, normal S1 and S2, no murmurs Abdomen-normal bowel sounds, nontender, no hepatosplenomegaly Extremities-chronic bilateral lower extremity edema below the knees Neuro-cranial nerves II through XII intact, motor and sensory function within normal limits, strength symmetrical with generalized weakness , no focal deficits Psych-flat affect Results & Data Results & Data Vital Signs (Past 12 Hours) Vital Signs Temp Pulse Pulse Resp BP BP Pulse Ox 05/23/23 11:46 36.8 C 81 18 151/81 H 91 05/23/23 07:37 36.8 C 81 18 147/67 H 94 05/23/23 07:00 77 05/23/23 07:00 05/23/23 04:05 36.7 C 78 17 171/90 H 97 05/23/23 04:18 163/65 H Pulse Ox O2 Del Method O2 Del Method 05/23/23 11:46 Room Air 05/23/23 07:37 Room Air 05/23/23 07:00 05/23/23 07:00 97 Room Air 05/23/23 04:05 Room Air 05/23/23 04:18 PG Care Time/CCT Total # of Minutes Spent Total Time Spent with Patient: Total time spent is greater than 50% in coordination of care (as documented) at patient's floor/unit and/or counseling patient: Coding Level of Care Code 31577 SUB INP/OBS CARE 2/35MIN Diagnoses Metabolic encephalopathy G93.41 Hypoglycemia E16.2 ESRD on dialysis N18.6; Z99.2 Acute on chronic anemia D64.9 C. difficile diarrhea A04.72 Elevated troponin R77.8 Paroxysmal atrial flutter I48.92 Hyponatremia E87.1 Congestive heart failure I50.9 Sacral wound S31.000A Cirrhosis K74.60 Hypertension I10 GERD (gastroesophageal reflux disease) K21.9
[2023-05-23] MEDS ORDERED: DAPTOmycin 500 MG in SYRINGE 0 ML IV STA (16:12)
[2023-05-23] MEDS: CARBOHYDRATES FOR HYPOGLYCEMIA PO PRN (16:40)
[2023-05-23] MEDS: metroNIDAZOLE 500 MG/100 ML BAG IV SCH (17:30)
[2023-05-23] MEDS: VENLAFAXINE HCL XR 75 MG CAPXR PO SCH (20:01)
[2023-05-23] MEDS: allopurinoL 100 MG TAB PO SCH (20:02)
[2023-05-23] MEDS: DIAZOXIDE PO SCH (20:04)
[2023-05-23] MEDS ORDERED: LORazepam 1 MG TAB PO STA (21:21)
[2023-05-24] MEDS: RASPBERRY SYRUP 5 ML UDP PO SCH ×4 (00:50→18:19)
[2023-05-24] MEDS: HYDROCORTISONE SOD 25 MG in SYRINGE 0 ML IV SCH ×3 (00:50→17:31)
[2023-05-24] MEDS: VANCOMYCIN HCL 125 MG/2.5ML SOLN PO SCH ×4 (00:50→18:19)
[2023-05-24] MEDS: metroNIDAZOLE 500 MG/100 ML BAG IV SCH ×3 (01:22→17:09)
[2023-05-24] MEDS ORDERED: SODIUM CHLORIDE 0.9% 1000ML 1,000 ML IV PRN (07:00)
[2023-05-24 07:16] LABS: Basophils # (auto) 0.01 K/uL (0-0.2); Basophils % (auto) 0.1 %; Hematocrit (blood only) 24.7 % (42.0-52.0); Hemoglobin 8.2 g/dl (14.0-18.0); Immature Granulocytes # (auto) 0.03 K/uL (0.01-0.20); Immature Granulocytes % (auto) 0.4 %; Lymphocytes # (auto) 0.65 K/uL (1.2-3.4); Mean Corpuscular Hemoglobin 30.8 pg (25.0-34.0); Mean Corpuscular Hgb Conc 33.2 g/dL (32.0-36.0); Mean Corpuscular Volume 92.9 fL (80.0-100.0); Mean Platelet Volume 11.2 fL (9.4-12.4); Monocytes % (auto) 2.5 %; Neutrophils # (auto) 7.27 K/uL (1.40-6.50); Platelet Count 100 K/uL (130-400); RDW Coefficient of Variation 18.2 % (11.5-14.5); RDW Standard Deviation 59.6 fL (36.4-46.3); Red Blood Count 2.66 M/uL (4.70-6.10); White Blood Count 8.16 K/ul (4.8-10.8)
[2023-05-24 07:28] LABS: Est GFR (African American) 16.1 ml/min; Potassium 4.4 mmol/L (3.5-5.1)
[2023-05-24 07:29] LABS: Albumin Level 1.9 gm/dl (3.4-5.0); BUN Creatinine Ratio 3.5 (10-20); Bilirubin,Total 0.6 mg/dl (0.2-1.0); Calcium 7.8 mg/dl (8.6-10.3); Est GFR (Non-African American) 13.9 ml/min; Total Protein 3.9 gm/dl (6.0-8.3)
[2023-05-24] MEDS: METOCLOPRAMIDE HCL 5 MG TABLET PO SCH ×3 (08:19→17:12)
[2023-05-24] MEDS: PANTOprazole 40 MG in SYRINGE 0 ML IV SCH ×2 (08:20→20:05)
[2023-05-24] MEDS: DIAZOXIDE PO SCH ×3 (08:21→20:08)
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
[2023-05-24] MEDS: VALSARTAN/SACUBITRIL 26/24MG TAB PO SCH ×2 (13:35→20:07)
[2023-05-24] MEDS: AMIODARONE 200 MG TAB PO SCH ×2 (13:35→20:05)
[2023-05-24] MEDS: carvediloL 6.25 MG TAB PO SCH ×2 (13:36→20:05)
[2023-05-24] MEDS: PROMETHAZINE HCL 25 MG TAB PO PRN (13:49)
--- NOTE | 2023-05-24 14:03 | Nephrology Progress Note ---
Date of Service May 24, 2023 Assessment & Plan Admission and Anticipated Discharge Date Admission Date: May 21, 2023 Subjective Assessment & Plan (1) End stage renal disease on dialysis: End-stage renal disease on dialysis Wednesday and is getting dialysis as this week as per his normal schedule. It does not appear patient has been eating drinking much as he is potassium seems to be low creatinine is lower. It is very hard to assess the true fluid status in a dialysis patient. With recent C. difficile he has had diarrhea so I do not believe that he is ac tually volume overloaded now. No issues with Dialysis earlier today next HD on Wednesday. He is frequently admitted to the hospital for various reasons so it is not unreasonable to involve palliative medicine. (2) Altered mental status: Unclear etiology but probably multifactorial. Sometimes mental status does improve after dialysis. We will follow (3) C. difficile diarrhea: Recently diagnosed and is currently on p.o. 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 The effect of excessive insulin production is made even worse by ESRD the metabolism/degradation of insulin is even slower causing more hypoglycemia Continue diazoxide glucose tab steroid endocrinology recommendation after recent hospitalization and discharged [place] [facility]--had Dialysis earlier today. No issues reported. 2.9 Kilo UF done. Bp is better. Physical Exam: General:lethargic, kept his eyes closed and did not really answer my question, chronically ill-appearing HEENT:Normocephalic, atraumatic, no scleral icterus, pupils around round, symmetrical, and reactive to light, Chest/Pulm:Dialysis cath located in the left upper chest without signs of infection, No respiratory distress, symmetrical chest expansion, clear breath sounds throughout Cardiac:RRR, no murmurs noted Abdomen:Negative for ascites, soft, non-tender to palpation throughout Musculoskeletal:patient will intermittently move upper and lower extremities voluntarily but is too lethargic to follow commands, no acute trauma noted Extremities:, no edema noted in the BL LE's Skin:Patient with minor skin breakdown at the sacrum without ulceration or significant erythema, right lateral calf skin tear currently with scab in place and without drainage Neuro:Patient will momentarily open eyes when yelling name or sternal rub but quickly falls back asleep, did not follow commands, Results & Data Vital Signs (Past 12 Hours) Vital Signs Temp Pulse Pulse Pulse Resp BP BP 05/24/23 13:32 36.6 C 78 16 126/80 05/24/23 12:56 36.6 C 91 H 157/84 H 05/24/23 12:30 86 175/105 H 05/24/23 12:00 89 193/104 H 05/24/23 11:30 85 191/93 H 05/24/23 11:00 84 146/85 H 05/24/23 10:30 84 146/85 H 05/24/23 10:00 81 152/94 H 05/24/23 09:30 79 156/77 H 05/24/23 09:34 76 05/24/23 07:00 05/24/23 09:07 66 166/38 H 05/24/23 09:02 36.5 C 80 05/24/23 07:08 36.9 C 77 15 05/24/23 04:07 36.6 C 78 19 95/64 L BP Pulse Ox Pulse Ox O2 Del Method O2 Del Method 05/24/23 13:32 93 Room Air 05/24/23 12:56 05/24/23 12:30 05/24/23 12:00 05/24/23 11:30 05/24/23 11:00 05/24/23 10:30 05/24/23 10:00 05/24/23 09:30 05/24/23 09:34 05/24/23 07:00 95 Room Air 05/24/23 09:07 05/24/23 09:02 05/24/23 07:08 166/85 H 95 Room Air 05/24/23 04:07 100 Room Air
[2023-05-24] MEDS: DAPTOmycin 625 MG in SYRINGE 0 ML IV SCH (17:11)
[2023-05-24] MEDS: VENLAFAXINE HCL XR 75 MG CAPXR PO SCH (20:05)
[2023-05-24] MEDS: allopurinoL 100 MG TAB PO SCH (20:05)
[2023-05-24] MEDS: FAMOTIDINE 10 MG TABLET PO SCH (20:08)
--- NOTE | 2023-05-24 23:11 | Hospitalist Progress Note ---
Date of Service May 24, 2023 Assessment & Plan (1) Metabolic encephalopathy: Plan: Present on admission. Now resolved. Supportive care-Admit to the PCU on tele and pulse oximetry (2) Hypoglycemia: Plan: Present on admission. Now resolved. Serial labs. (3) ESRD on dialysis: Plan: [place] nephrology consultation appreciated. He receives hemodialysis every Wednesday and Wednesday. Serial labs. Monitor intake and output. (4) Acute on chronic anemia: Plan: No overt GI bleeding. Serial labs. Transfuse as necessary. (5) C. difficile diarrhea: Plan: Continue oral vancomycin therapy. Diarrhea has resolved. Blood culture is positive: repeating cultures. unsure if this is a contaminant, however switching to dapto and flagyl. WIll order a TTE and will order a ct scan of abd/pelvis (6) Elevated troponin: Plan: No evidence of acute coronary syndrome. Denies chest pain . Suspect demand ischemia etiology (7) Paroxysmal atrial flutter: Plan: Stable . Continue amiodarone. Telemetry (8) Hyponatremia: Plan: Mild. No intervention necessary at this time. Serial labs. (9) Congestive heart failure: Plan: Chronic combined systolic and diastolic CHF. No overt CHF at this time. Monitor intake and output. Continue Entresto along with other medications (10) Sacral wound: Plan: Small pressure sore on the sacrum without signs of infection . Wound care nurse assistance appreciated (11) Cirrhosis: Plan: No intervention at this time. Serial labs (12) Hypertension: Plan: Stable. Continue current medical management (13) GERD (gastroesophageal reflux disease): Plan: Stable. Continue intravenous PPI therapy Plan Anticipate eventual discharge to previous living arrangements Admission and Anticipated Discharge Date Admission Date: May 21, 2023 Subjective Patient reports no new symptoms today. Review of Systems Review of Systems: All systems reviewed & are unremarkable except as noted in HPI & below Physical Exam Physical Exam: General-alert and oriented x3, no fevers, no chills. Obese HEENT-head atraumatic and normocephalic, pupils equal and reactive to light, extraocular muscles intact Neck-no lymphadenopathy or thyromegaly, trachea midline Chest-clear to auscultation percussion. No rales wheezing or rhonchi Cardiac-regular rate and rhythm, normal S1 and S2, no murmurs Abdomen-normal bowel sounds, nontender, no hepatosplenomegaly Extremities-chronic bilateral lower extremity edema below the knees Neuro-cranial nerves II through XII intact Psych-flat affect Results & Data Results & Data Vital Signs (Past 12 Hours) Vital Signs Temp Pulse Pulse Pulse Resp BP BP 05/24/23 19:29 36.8 C 76 20 05/24/23 17:16 37 C 79 17 162/86 H 05/24/23 14:10 05/24/23 13:32 36.6 C 78 16 126/80 05/24/23 12:56 36.6 C 91 H 157/84 H 05/24/23 12:30 86 175/105 H 05/24/23 12:00 89 193/104 H 05/24/23 11:30 85 191/93 H BP Pulse Ox Pulse Ox O2 Del Method O2 Del Method 05/24/23 19:29 161/81 H 94 Room Air 05/24/23 17:16 95 Room Air 05/24/23 14:10 93 Room Air 05/24/23 13:32 93 Room Air 05/24/23 12:56 05/24/23 12:30 05/24/23 12:00 05/24/23 11:30 PG Care Time/CCT Total # of Minutes Spent Total Time Spent with Patient: Total time spent is greater than 50% in coordination of care (as documented) at patient's floor/unit and/or counseling patient: Coding Level of Care Code 02089 SUB INP/OBS CARE 2/35MIN Diagnoses Metabolic encephalopathy G93.41 Hypoglycemia E16.2 ESRD on dialysis N18.6; Z99.2 Acute on chronic anemia D64.9 C. difficile diarrhea A04.72 Elevated troponin R77.8 Paroxysmal atrial flutter I48.92 Hyponatremia E87.1 Congestive heart failure I50.9 Sacral wound S31.000A Cirrhosis K74.60 Hypertension I10 GERD (gastroesophageal reflux disease) K21.9
[2023-05-25] MEDS: VANCOMYCIN HCL 125 MG/2.5ML SOLN PO SCH ×4 (00:25→17:20)
[2023-05-25] MEDS: HYDROCORTISONE SOD 25 MG in SYRINGE 0 ML IV SCH ×3 (00:25→18:23)
[2023-05-25] MEDS: RASPBERRY SYRUP 5 ML UDP PO SCH ×4 (00:25→17:20)
[2023-05-25] MEDS: metroNIDAZOLE 500 MG/100 ML BAG IV SCH ×3 (00:26→18:21)
[2023-05-25 07:10] LABS: Hematocrit (blood only) 25.2 % (42.0-52.0); Hemoglobin 8.4 g/dl (14.0-18.0); Mean Corpuscular Hemoglobin 30.1 pg (25.0-34.0); Mean Corpuscular Hgb Conc 33.3 g/dL (32.0-36.0); Mean Corpuscular Volume 90.3 fL (80.0-100.0); Mean Platelet Volume 11.6 fL (9.4-12.4); Platelet Count 98 K/uL (130-400); RDW Coefficient of Variation 18.4 % (11.5-14.5); RDW Standard Deviation 59.6 fL (36.4-46.3); Red Blood Count 2.79 M/uL (4.70-6.10); White Blood Count 8.31 K/ul (4.8-10.8)
[2023-05-25 07:26] LABS: BUN Creatinine Ratio 2.8 (10-20); C Reactive Protein 1.09 mg/dl (0-0.5); Calcium 7.7 mg/dl (8.6-10.3); Creatinine Clr Calc Pharmacy 26.5 ml/min; Est GFR (African American) 25.9 ml/min; Est GFR (Non-African American) 22.4 ml/min; Potassium 3.7 mmol/L (3.5-5.1)
[2023-05-25] MEDS: carvediloL 6.25 MG TAB PO SCH ×2 (08:00→21:22)
[2023-05-25] MEDS: PANTOprazole 40 MG in SYRINGE 0 ML IV SCH ×2 (08:00→21:24)
[2023-05-25] MEDS: VALSARTAN/SACUBITRIL 26/24MG TAB PO SCH ×2 (08:01→21:21)
[2023-05-25] MEDS: METOCLOPRAMIDE HCL 5 MG TABLET PO SCH ×3 (08:01→17:20)
[2023-05-25] MEDS: AMIODARONE 200 MG TAB PO SCH ×2 (08:01→21:22)
[2023-05-25] MEDS: DIAZOXIDE PO SCH ×3 (08:02→21:22)
[2023-05-25] MEDS ORDERED: OPTIRAY 320 100ml IV ONE (11:29)
--- NOTE | 2023-05-25 12:07 | CT Scan Report ---
CT SCAN OF THE ABDOMEN AND PELVIS WITH IV CONTRAST CLINICAL HISTORY: Bacteremia. COMPARISON STUDY: Abdominal CT dated 02/11/2023. TECHNIQUE: Following the IV administration of 94 cc of Optiray 320, CT scan of the abdomen and pelvi s is performed from the lung bases to the proximal femora. Images are reviewed in the axial, sagittal , and coronal planes. IV contrast was administered without complication. Oral contrast was utilized. A dose lowering technique was utilized adhering to the principles of ALARA. There is streak artifact from the arms which could not be elevated above the abdomen. CT DOSE: 1297.96 mGy.cm FINDINGS: Lung bases: The patient is status post midline sternotomy. The heart is mildly enlarged and without p ericardial effusion. The coronary arteries are densely calcified. Emphysematous change is suspected. There are small left and trace right pleural effusions with dependent atelectasis. Mild intralobular septal thickening is noted at the lung bases. Liver: The contrast-enhanced liver is cirrhotic in morphology and heterogeneous in attenuation. There is nodularity of the hepatic surface contour. There is no intrahepatic biliary ductal dilatation. Th e hepatic veins and portal veins are patent. Gallbladder: Surgically absent noting clips in the gallbladder fossa. Spleen: Normal in size and attenuation. Pancreas: Moderately atrophic and grossly unremarkable. 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 The adrenal glands are other pierre normal in appearance. Kidneys: The contrast enhanced kidneys are atrophic and without hydronephrosis. The right kidney is a symmetrically atrophic as compared to the left. There is heterogeneously diminished enhancement of th e right kidney as compared to the left. Left renal cysts measure up to 7.5 cm. There is a 3 mm nonobs tructing calculus in the left lower pole. There is near-complete to complete thrombosis at the origin of the right renal artery. Abdominal vasculature: The abdominal aorta is normal in course and caliber noting advanced atheroscle rotic calcification. Bowel: There are is no bowel obstruction. Enteric contrast reaches the right colon. A small duodenal diverticulum is incidentally noted. The appendix is well-visualized and normal. There is rectosigmoi d fecal retention. There is mild wall thickening of the rectosigmoid colon. Peritoneum: There is no intraperitoneal free air or abdominal ascites. Lymphadenopathy: None. Pelvic viscera: Evaluation of the pelvis is degraded by streak artifact from a left hip arthroplasty. The prostate gland is diminutive and heterogeneous. The bladder wall appears mildly thickened/trabec ulated indicating chronic outlet obstruction. There are small bilateral fat-containing groin hernias. Skeletal structures: The skeletal structures are osteopenic. There is advanced lumbosacral spondylosi s. No lytic or blastic lesions are seen. A left hip arthroplasty is in place but Soft tissues: Gynecomastia is noted. There is body wall edema. IMPRESSION: 1. There is mild wall thickening of the rectosigmoid colon. Correlate clinically for evidence of a no nspecific proctocolitis. 2. Cardiomegaly and emphysema. 3. Cirrhotic liver morphology. 4. Small left and trace right pleural effusions with dependent atelectasis. 5. Additional findings as above. ACT 112: Negative or not required by law. Electronically signed by: Lane Escobar M.D. 05/25/2023 12:06 PM
--- NOTE | 2023-05-25 12:09 | Nephrology Progress Note ---
Date of Service May 25, 2023 Assessment & Plan Admission and Anticipated Discharge Date Admission Date: May 21, 2023 Subjective Assessment & Plan (1) End stage renal disease on dialysis: End-stage renal disease on dialysis Wednesday and is getting dialysis as this week as per his normal schedule. It does not appear patient has been eating drinking much as he is potassium seems to be low creatinine is lower. It is very hard to assess the true fluid status in a dialysis patient. With recent C. difficile he has had diarrhea so I do not believe that he is actually volume overloaded now. No issues with Dialysis earlier today next HD on Wednesday. He is frequently admitted to the hospital for various reasons so it is not unreasonable to involve palliative medicine. (2) Altered mental status: Unclear etiology but probably multifactorial. Sometimes mental status does improve after dialysis. We will follow (3) C. difficile diarrhea: Recently diagnosed and is currently on p.o. 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 The effect of excessive insulin production is made even worse by ESRD the metabolism/degradation of insulin is even slower causing more hypoglycemia Continue diazoxide glucose tab steroid endocrinology recommendation after recent hospitalization and discharged from [facility]--had Dialysis yesterday. No issues reported. 2.9 Kilo UF done. Bp is better. Also he seems more alert. getting CT to look for infection Physical Exam: General:More alert. chronically ill-appearing HEENT:Normocephalic, atraumatic, no scleral icterus, pupils around round, symmetrical, and reactive to light, Chest/Pulm:Dialysis cath located in the left upper chest without signs of infection, No respiratory distress, symmetrical chest expansion, clear breath sounds throughout Cardiac:RRR, no murmurs noted Abdomen:Negative for ascites, soft, non-tender to palpation throughout Musculoskeletal:patient will intermittently move upper and lower extremities voluntarily but is too lethargic to follow commands, no acute trauma noted Extremities:, no edema noted in the BL LE's Skin:Patient with minor skin breakdown at the sacrum without ulceration or significant erythema, right lateral calf skin tear currently with scab in place and without drainage Neuro:Patient will momentarily open eyes when yelling name or sternal rub but quickly falls back asleep, did not follow commands, Results & Data Vital Signs (Past 12 Hours) Vital Signs Temp Pulse Pulse Pulse Resp BP BP 05/25/23 11:26 71 05/25/23 11:11 144/88 H 05/25/23 10:45 36.5 C 76 17 155/123 H 05/25/23 07:00 05/25/23 07:43 36.3 C L 72 18 143/80 H 05/25/23 03:38 144/77 H 05/25/23 03:27 36.5 C 70 18 174/59 H Pulse Ox Pulse Ox O2 Del Method O2 Del Method 05/25/23 11:26 05/25/23 11:11 05/25/23 10:45 97 Room Air 05/25/23 07:00 93 Room Air 05/25/23 07:43 98 Room Air 05/25/23 03:38 05/25/23 03:27 94 Room Air
--- NOTE | 2023-05-25 17:36 | XCELERA ---
[id number] \\[email or web address]\[id number]___[id number].pdf
[2023-05-25] MEDS ORDERED: MINERAL OIL ENEMA 133 ML BTL PR ONE (19:00)
[2023-05-25] MEDS: allopurinoL 100 MG TAB PO SCH (21:21)
[2023-05-25] MEDS: VENLAFAXINE HCL XR 75 MG CAPXR PO SCH (21:22)
[2023-05-25] MEDS: LORazepam 1 MG TAB PO PRN (21:32)
--- NOTE | 2023-05-25 22:21 | Hospitalist Progress Note ---
Date of Service May 25, 2023 Assessment & Plan (1) Bacteremia due to Clostridium species: Plan: Unsure of source. Ordered TTE Ordered ct abd/pelvis (2) Bacteremia due to Enterococcus: (3) Metabolic encephalopathy: Plan: Present on admission. Now resolved. Supportive care-Admit to the PCU on tele and pulse oximetry (4) Hypoglycemia: Plan: Present on admission. Now resolved. Serial labs. (5) ESRD on dialysis: Plan: [facility] nephrology consultation appreciated. He receives hemodialysis every Wednesday and Wednesday. Serial labs. Monitor intake and output. (6) Acute on chronic anemia: Plan: No overt GI bleeding. Serial labs. Transfuse as necessary. (7) C. difficile diarrhea: Plan: Continue oral vancomycin therapy. Diarrhea has resolved. Blood culture is positive: repeating cultures. unsure if this is a contaminant, however switching to dapto and flagyl. WIll order a TTE and will order a ct scan of abd/pelvis (8) Elevated troponin: Plan: No evidence of acute coronary syndrome. Denies chest pain . Suspect demand ischemia etiology (9) Paroxysmal atrial flutter: Plan: Stable . Continue amiodarone. Telemetry (10) Hyponatremia: Plan: Mild. No intervention necessary at this time. Serial labs. (11) Congestive heart failure: Plan: Chronic combined systolic and diastolic CHF. No overt CHF at this time. Monitor intake and output. Continue Entresto along with other medications (12) Sacral wound: Plan: Small pressure sore on the sacrum without signs of infection . Wound care nurse assistance appreciated (13) Cirrhosis: Plan: No intervention at this time. Serial labs (14) Hypertension: Plan: Stable. Continue current medical management (15) GERD (gastroesophageal reflux disease): Plan: Stable. Continue intravenous PPI therapy Plan Anticipate eventual discharge to previous living arrangements Admission and Anticipated Discharge Date Admission Date: May 21, 2023 Subjective Patient reports no new symptoms Review of Systems Review of Systems: All systems reviewed & are unremarkable except as noted in HPI & below Physical Exam Physical Exam: General-alert and oriented x3, no fevers, no chills. Obese HEENT-head atraumatic and normocephalic, pupils equal and reactive to light, extraocular muscles intact Neck-no lymphadenopathy or thyromegaly, trachea midline Chest-clear to auscultation percussion. No rales wheezing or rhonchi Cardiac-regular rate and rhythm, normal S1 and S2, no murmurs Abdomen-normal bowel sounds, nontender, no hepatosplenomegaly Extremities-chronic bilateral lower extremity edema below the knees Neuro-cranial nerves II through XII intact Psych-flat affect Results & Data Results & Data Vital Signs (Past 12 Hours) Vital Signs Temp Pulse Pulse Resp BP BP Pulse Ox 05/25/23 19:50 36.6 C 76 20 152/92 H 95 05/25/23 19:40 05/25/23 18:33 72 05/25/23 14:00 05/25/23 15:22 36.8 C 74 19 111/46 L 98 05/25/23 11:26 71 05/25/23 11:11 144/88 H 05/25/23 10:45 36.5 C 76 17 155/123 H 97 Pulse Ox O2 Del Method O2 Del Method 05/25/23 19:50 Room Air 05/25/23 19:40 Room Air 05/25/23 18:33 05/25/23 14:00 95 Room Air 05/25/23 15:22 Room Air 05/25/23 11:26 05/25/23 11:11 05/25/23 10:45 Room Air PG Care Time/CCT Total # of Minutes Spent Total Time Spent with Patient: Total time spent is greater than 50% in coordination of care (as documented) at patient's floor/unit and/or counseling patient: Coding Level of Care Code 89502 SUB INP/OBS CARE 2/35MIN Diagnoses Bacteremia due to Clostridium species R78.81; B96.89 Bacteremia due to Enterococcus R78.81; B95.2 Metabolic encephalopathy G93.41 Hypoglycemia E16.2 ESRD on dialysis N18.6; Z99.2 Acute on chronic anemia D64.9 C. difficile diarrhea A04.72 Elevated troponin R77.8 Paroxysmal atrial flutter I48.92 Hyponatremia E87.1 Congestive heart failure I50.9 Sacral wound S31.000A Cirrhosis K74.60 Hypertension I10 GERD (gastroesophageal reflux disease) K21.9
[2023-05-26] MEDS: VANCOMYCIN HCL 125 MG/2.5ML SOLN PO SCH ×2 (00:26→05:38)
[2023-05-26] MEDS: metroNIDAZOLE 500 MG/100 ML BAG IV SCH ×2 (00:26→08:18)
[2023-05-26] MEDS: HYDROCORTISONE SOD 25 MG in SYRINGE 0 ML IV SCH ×3 (00:26→17:41)
[2023-05-26 07:20] LABS: Hematocrit (blood only) 24.6 % (42.0-52.0); Hemoglobin 8.4 g/dl (14.0-18.0); Mean Corpuscular Hemoglobin 30.9 pg (25.0-34.0); Mean Corpuscular Hgb Conc 34.1 g/dL (32.0-36.0); Mean Corpuscular Volume 90.4 fL (80.0-100.0); Mean Platelet Volume 12.1 fL (9.4-12.4); Platelet Count 101 K/uL (130-400); RDW Coefficient of Variation 18.5 % (11.5-14.5); RDW Standard Deviation 59.7 fL (36.4-46.3); Red Blood Count 2.72 M/uL (4.70-6.10); White Blood Count 8.39 K/ul (4.8-10.8)
[2023-05-26 07:41] LABS: BUN Creatinine Ratio 3.1 (10-20); C Reactive Protein 0.97 mg/dl (0-0.5); Calcium 7.6 mg/dl (8.6-10.3); Creatinine Clr Calc Pharmacy 19.9 ml/min; Est GFR (African American) 18.3 ml/min; Est GFR (Non-African American) 15.8 ml/min; Potassium 3.6 mmol/L (3.5-5.1)
[2023-05-26] MEDS ORDERED: SODIUM CHLORIDE 0.9% 1000ML 1,000 ML IV PRN (07:56)
[2023-05-26] MEDS ORDERED: EPOETIN ALFA 20,000 UNITS/ML VIAL IV SCH (08:00)
[2023-05-26] MEDS: VALSARTAN/SACUBITRIL 26/24MG TAB PO SCH ×2 (08:18→21:58)
[2023-05-26] MEDS: METOCLOPRAMIDE HCL 5 MG TABLET PO SCH ×3 (08:18→18:17)
[2023-05-26] MEDS: DIAZOXIDE PO SCH ×3 (08:19→21:59)
[2023-05-26] MEDS: PANTOprazole 40 MG in SYRINGE 0 ML IV SCH ×2 (08:22→21:59)
--- NOTE | 2023-05-26 09:26 | Infectious Disease Progress Nt ---
Date of Service May 26, 2023 Assessment & Plan (1) Bacteremia due to Enterococcus: (2) Bacteremia due to Clostridium species: (3) C. difficile diarrhea: Plan Micro: 05/23 BCx x2: NGTD 05/21 BCx x2: E faecalis in 2/4 bottles (S amp, penicillin, vanc), Clostridium perfringens in 1/4 bottles. BCID panel detected E faecalis, E faecium, Lydia/B resistance Abx: Dapto 05/23 - present Metronidazole 05/23 - present Vanc PO 05/21 - present Vanc IV 05/22 Problems: #E faecalis, VRE, Clostridium perfringens bacteremia #C diff infection #ESRD on HD via [facility] 62 yo wheelchair-bound M with HFrEF, CAD s/p CABG/stents, afib/PAF (not on anticoagulation), DM, ESRD on HD via [facility] ([facility]), PAD, ELLA (noncompliant with CPAP), BROWN cirrhosis, UGIB in January 2023, recent admission in which he was diagnosed with nesidioblastosis and C diff, who presented on 05/21 due to increased AMS, found to have E faecalis, VRE, and Clostridium perfringens bacteremia. On presentation, pt was afebrile, VSS. Labs showed WBC 7.5, plt 98 (around baseline), lactate 1, normal ammonia, procal 0.92. CT head showed no hemorrhage, mass effect, or acute ischemia. CXR showed cardiomegaly, low lung volumes with bibasilar atelectasis. Per patient's , pt became more confused, agitated, with hallucinations the day prior to presentation. She denied fevers and stated the pt's diarrhea had resolved. Pt was continued on his prior course of PO vanc. Pt's admission blood cultures grew Enterococcus faecalis, and Clostr idium perfringens. BCID PCR panel is positive for E faecalis, E faecium, and detected Lydia/B resistance. He was started on vanc, then switched to dapto and metronidazole. Patient's AMS has resolved. Still having some loose stools. Unclear source of bacteremia. Enterococcus and Clostridium can be found in the gut. A CT A/P with IV and PO contrast on 05/25 did not show a clear source: surgically absent gallbladder, no hydronephrosis, L renal cysts, no significant bowel findings. Clostridium perfringens can also be found in gas gangrene or traumatic penetrating/crush injuries--no concerning wounds seen on exam. Pt does have a [facility] T[facility] for hemodialysis. Repeat BCx from 05/23 are NGTD x 48 hours. A TTE on 05/25 showed no vegetations. There is some discrepancy between [employer] PCR panel and his blood cultures. [employer] showed VRE, but having difficulty obtaining this on his blood cultures. Recommendations: -Follow-up 05/21 BCx for finalization--although will cover for VRE even if this is not able to be grown on blood culture. -Continue daptomycin 625 mg dosed three times a week after HD (~8.8 mg/kg by adjusted body weight of 71 kg) to cover E faecalis, VRE. Complete a 14 day course with last dose on 06/04/23. -Baseline CK 13 on 05/25. -Switched from IV to PO metronidazole. Continue metronidazole 500 mg PO BID to complete a 7 day course through 05/29/23 to cover Clostridium perfringens. Administer PM dose after dialysis on HD days. -For C diff, pt has completed 10 days of oral vanc for treatment. Switched to vancomycin 125 mg PO once daily for prophylaxis while on systemic antibiotics. Continue through 06/11 (1 week after completion of systemic antbiotics) Discussed with primary team. Will sign off. Please page [facility] with further questions. Admission and Anticipated Discharge Date Admission Date: May 21, 2023 Subjective This patient recommendation is based on a telemedicine consult request which was completed asynchronously through chart review and information provided by the primary physician. The patient was not seen or examined today. The evaluation is consultative in nature and all patient care and treatment decisions can either be accepted or rejected by the patient's primary hospital-based treating physician using their own independent medical judgment for their patient. Time Spent Reviewing Chart: 21 - 30 minutes no acute events Review of System Pt was not seen Physical Exam Physical Exam: Pt was not seen Results & Data Vital Signs (Past 12 Hours) Vital Signs Temp Pulse Pulse Resp BP BP Pulse Ox 05/26/23 07:37 36.7 C 68 17 157/74 H 93 05/26/23 02:16 36.7 C 70 18 126/70 95 05/25/23 22:00 74 05/25/23 23:34 36.6 C 72 16 146/73 H 93 O2 Del Method 05/26/23 07:37 Room Air 05/26/23 02:16 Room Air 05/25/23 22:00 05/25/23 23:34 Room Air Laboratory Results Short CBC 05/26/23 Range/Units 06:40 WBC 8.39 (4.8-10.8) K/ul Hgb 8.4 L (14.0-18.0) g/dl Hct 24.6 L (42.0-52.0) % Plt Count 101 L (130-400) K/uL BMP 05/26/23 06:40 Sodium 134 L Potassium 3.6 Chloride 101 Carbon Dioxide 29 BUN 12 Creatinine 3.81 H D Glucose 88 Calcium 7.6 L Diagnostic Findings Abdomen/Pelvis CT 05/25/23 08:47 CT SCAN OF THE ABDOMEN AND PELVIS WITH IV CONTRAST CLINICAL HISTORY: Bacteremia. COMPARISON STUDY: Abdominal CT dated 02/11/2023. TECHNIQUE: Following the IV administration of 94 cc of Optiray 320, CT scan of the abdomen and pelvis is performed from the lung bases to the proximal femora. Images are reviewed in the axial, sagittal, and coronal planes. IV contrast was administered without complication. Oral contrast was utilized. A dose lowering technique was utilized adhering to the principles of ALARA. There is streak yvonne fact from the arms which could not be elevated above the abdomen. CT DOSE: 1297.96 mGy.cm FINDINGS: Lung bases: The patient is status post midline sternotomy. The heart is mildly enlarged and without pericardial effusion. The coronary arteries are densely calcified. Emphysematous change is suspected. There are small left and trace right pleural effusions with dependent atelectasis. Mild intralobular septal thickening is noted at the lung bases. Liver: The contrast-enhanced liver is cirrhotic in morphology and heterogeneous in attenuation. There is nodularity of the hepatic surface contour. There is no intrahepatic biliary ductal dilatation. The hepatic veins and portal veins are patent. Gallbladder: Surgically absent noting clips in the gallbladder fossa. Spleen: Normal in size and attenuation. Pancreas: Moderately atrophic and grossly unremarkable. 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 The adrenal glands are otherwise normal in appearance. Kidneys: The contrast enhanced kidneys are atrophic and without hydronephrosis. The right kidney is asymmetrically atrophic as compared to the left. There is heterogeneously diminished enhancement of the right kidney as compared to the left. Left renal cysts measure up to 7.5 cm. There is a 3 mm nonobstructing calculus in the left lower pole. There is near-complete to complete thrombosis a t the origin of the right renal artery. Abdominal vasculature: The abdominal aorta is normal in course and caliber noting advanced atherosclerotic calcification. Bowel: There are is no bowel obstruction. Enteric contrast reaches the right colon. A small duodenal diverticulum is incidentally noted. The appendix is well-visualized and normal. There is rectosigmoid fecal retention. There is mild wall thickening of the rectosigmoid colon. Peritoneum: There is no intraperitoneal free air or abdominal ascites. Lymphadenopathy: None. Pelvic viscera: Evaluation of the pelvis is degraded by streak artifact from a left hip arthroplasty. The prostate gland is diminutive and heterogeneous. The bladder wall appears mildly thickened/trabeculated indicating chronic outlet obstruction. There are small bilateral fat-containing groin hernias. Skeletal structures: The skeletal structures are osteopenic. There is advanced lumbosacral spondylosis. No lytic or blastic lesions are seen. A left hip arthroplasty is in place but Soft tissues: Gynecomastia is noted. There is body wall edema. IMPRESSION: 1. There is mild wall thickening of the rectosigmoid colon. Correlate clinically for evidence of a nonspecific proctocolitis. 2. Cardiomegaly and emphysema. 3. Cirrhotic liver morphology. 4. Small left and trace right pleural effusions with dependent atelectasis. 5. Additional findings as above. ACT 112: Negative or not required by law. Electronically signed by: Lane Escobar M.D. 05/25/2023 12:06 PM Medications Administered Current Inpatient Medications Allopurinol (Allopurinol 100 Mg Tab) 100 mg PO HS ROXY Stop: 06/20/23 20:59 Last Admin: 05/25/23 21:21 Dose: 100 mg Amiodarone HCl (Amiodarone 200 Mg Tab) 200 mg PO BID ROXY Stop: 06/20/23 20:59 Last Admin: 05/25/23 21:22 Dose: 200 mg Carvedilol (Carvedilol 6.25 Mg Tab) 6.25 mg PO BID ROXY Stop: 06/20/23 20:59 Last Admin: 05/25/23 21:22 Dose: 6.25 mg Dextrose (Dextrose 50% 50 Ml Syringe) 25 - 50 ml IV UD PRN; Protocol PRN Reason: Hypoglycemia Protocol Stop: 06/20/23 10:46 Last Admin: 05/21/23 11:42 Dose: 50 ml Diazoxide (Diazoxide 50 Mg/1 Ml 30 Ml) 30 mg PO TID [facility] Stop: 06/22/23 20:59 Last Admin: 05/26/23 08:19 Dose: 30 mg Epoetin Sarbjit (Epoetin Sarbjit 20,000 Units/Ml Vial) 20,000 units IV TODAY@0800 [facility] Stop: 05/26/23 18:00 Famotidine (Famotidine 10 Mg Tablet) 10 mg PO MoWeFr@2100 [facility] Stop: 06/23/23 20:59 Last Admin: 05/24/23 20:08 Dose: 10 mg Glucagon (Glucagon For Inj 1 Mg Vial) 1 mg SQ UD PRN; Protocol PRN Reason: Hypoglycemia Protocol Stop: 06/20/23 10:46 Glucose (Glucose 40% Gel 15 Gm Tube) 15 - 30 gm PO UD PRN; Protocol PRN Reason: Hypoglycemia Protocol Stop: 06/20/23 10:46 Glucose (Glucose 10 Tab/Tube) 4 - 8 tab PO UD PRN; Protocol PRN Reason: Hypoglycemia Treatment Stop: 06/20/23 10:46 Pantoprazole Sodium 40 mg/ (Syringe) 10 mls @ 5 mls/min IV BID [facility] Stop: 06/20/23 20:59 Last Admin: 05/26/23 08:22 Dose: 5 mls/min Hydrocortisone Sodium (Succinate 25 mg/ Syringe) 0.5 mls @ 4 mls/min IV Q8H [facility] Stop: 06/21/23 16:59 Last Admin: 05/26/23 08:18 Dose: 4 mls/min Promethazine HCl 12.5 mg/ (Sodium Chloride) 50.5 mls @ 202 mls/hr IV Q6H PRN PRN Reason: Nausea And Vomiting Stop: 06/21/23 17:41 Daptomycin 625 mg/ Syringe 12.5 mls @ 6.25 mls/min IV MoWeFr@1800 ROXY; Protocol Stop: 06/07/23 17:59 Last Admin: 05/24/23 17:11 Dose: 6.25 mls/min Metronidazole (Flagyl) 500 mg in 100 mls @ 100 mls/hr IV Q8H [facility]OX[facility] Stop: 06/06/23 16:29 Last Admin: 05/26/23 08:18 Dose: 100 mls/hr Sodium Chloride (Nss 1000ml) 1,000 mls @ 0 mls/hr IV .Q0M PRN PRN Reason: For Hemodialysis Use ONLY Stop: 05/26/23 13:55 Lorazepam (Lorazepam 1 Mg Tab) 1 mg PO HS PRN PRN Reason: Anxiety/Insomnia Stop: 06/23/23 07:57 Last Admin: 05/25/23 21:32 Dose: 1 mg Metoclopramide HCl (Metoclopramide Hcl 5 Mg Tablet) 2.5 mg PO TIDM ROXY Stop: 06/21/23 07:59 Last Admin: 05/26/23 08:18 Dose: 2.5 mg Miscellaneous (Carbohydrates For Hypoglycemia ) 15 - 30 gm PO UD PRN PRN Reason: Hypoglycemia Protocol Stop: 06/20/23 10:46 Last Admin: 05/23/23 16:40 Dose: 30 gm Promethazine HCl (Promethazine Hcl 25 Mg Tab) 25 mg PO Q6H PRN PRN Reason: Nausea And Vomiting Stop: 06/21/23 16:52 Last Admin: 05/24/23 13:49 Dose: 25 mg Sacubitril/Valsartan (Valsartan/Sacubitril 26/24mg Tab) 1 tab PO BID [facility]OXY Stop: 06/20/23 20:59 Last Admin: 05/26/23 08:18 Dose: 1 tab Vancomycin HCl (Vancomycin Hcl 125 Mg/2.5ml Soln) 125 mg PO Q6 [facility]OXY Stop: 06/01/23 17:59 Last Admin: 05/26/23 05:38 Dose: 125 mg Venlafaxine HCl (Venlafaxine Hcl Xr 75 Mg Capxr) 225 mg PO HS ROXY Stop: 06/20/23 20:59 Last Admin: 05/25/23 21:22 Dose: 225 mg
--- NOTE | 2023-05-26 09:39 | Dialysis Progress Note ---
Date of Service May 26, 2023 Assessment & Plan Admission and Anticipated Discharge Date Admission Date: May 21, 2023 Subjective Assessment & Plan (1) End stage renal disease on dialysis: End-stage renal disease on dialysis Wednesday and is getting dialysis as this week as per his normal schedule. It does not appear patient has been eating drinking much as he is potassium seems to be low creatinine is lower. It is very hard to assess the true fluid status in a dialysis patient. With recent C. difficile he has had diarrhea so I do not believe that he is actually volume overloaded now. No issues with Dialysis earlier today next HD on Wednesday. No major issue with Lytes or fluid overload. He is frequently admitted to the hospital for various reasons so it is not unr easonable to involve palliative medicine. (2) Altered mental status: Unclear etiology but probably multifactorial. Sometimes mental status does improve after dialysis. We will follow (3) C. difficile diarrhea + enterococcus bacteremia: reviewed ID note. 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 The effect of excessive insulin production is made even worse by ESRD the metabolism/degradation of insulin is even slower causing more hypoglycemia Continue diazoxide glucose tab steroid endocrinology recommendation after recent hospitalization and [place] [facility] [place]Seen during dialysis. No issues reported so far. BP and CVC fine. Also he seems more alert. Physical Exam: General:More alert. chronically ill-appearing HEENT:Normocephalic, atraumatic, no scleral icterus, pupils around round, symmetrical, and reactive to light, Chest/Pulm:Dialysis cath located in the left upper chest without signs of infection, No respiratory distress, symmetrical chest expansion, clear breath sounds throughout Cardiac:RRR, no murmurs noted Abdomen:Negative for ascites, soft, non-tender to palpation throughout Musculoskeletal:patient will intermittently move upper and lower extremities voluntarily but is too lethargic to follow commands, no acute trauma noted Extremities:, no edema noted in the BL LE's Skin:Patient with minor skin breakdown at the sacrum without ulceration or significant erythema, right lateral calf skin tear currently with scab in place and without drainage Neuro:Patient will momentarily open eyes when yelling name or sternal rub but quickly falls back asleep, did not follow commands, Results & Data Vital Signs (Past 12 Hours) Vital Signs Temp Pulse Pulse Resp BP BP Pulse Ox 05/26/23 07:37 36.7 C 68 17 157/74 H 93 05/26/23 02:16 36.7 C 70 18 126/70 95 05/25/23 22:00 74 05/25/23 23:34 36.6 C 72 16 146/73 H 93 O2 Del Method 05/26/23 07:37 Room Air 05/26/23 02:16 Room Air 05/25/23 22:00 05/25/23 23:34 Room Air
[2023-05-26] MEDS: AMIODARONE 200 MG TAB PO SCH ×3 (13:28→21:58)
[2023-05-26] MEDS: carvediloL 6.25 MG TAB PO SCH ×3 (13:28→21:58)
--- NOTE | 2023-05-26 14:00 | XRay Report ---
KUB HISTORY: Acute generalized abdominal pain with fecal retention fecal retention COMPARISON: CT 05/25/2023 FINDINGS: Cardiomegaly with sternotomy. Vascular calcifications. Cholecystectomy. Barium noted within the large bowel. Left iliac stent. Contrast within the urinary bladder. Left hip arthroplasty. No r enal calculi. No ureteral calculi. No pneumoperitoneum or pneumatosis. No fracture. IMPRESSION: 1. Nonobstructive bowel gas pattern. 2. No radiographic evidence of constipation. ACT 112: Negative or not required by law. The above report was generated using voice recognition software. It may contain grammatical, syntax o r spelling errors. Electronically signed by: Aston Ryan M.D. 05/26/2023 1:58 PM
[2023-05-26] MEDS: CARBOHYDRATES FOR HYPOGLYCEMIA PO PRN (16:39)
[2023-05-26] MEDS: DEXTROSE 50% 50 ML SYRINGE IV PRN (17:30)
[2023-05-26] MEDS: DAPTOmycin 625 MG in SYRINGE 0 ML IV SCH (17:45)
[2023-05-26] MEDS: FAMOTIDINE 10 MG TABLET PO SCH (21:58)
[2023-05-26] MEDS: metroNIDAZOLE 500 MG TAB PO SCH (21:58)
[2023-05-26] MEDS: VENLAFAXINE HCL XR 75 MG CAPXR PO SCH (21:59)
[2023-05-26] MEDS: allopurinoL 100 MG TAB PO SCH (21:59)
[2023-05-26] MEDS: LORazepam 1 MG TAB PO PRN (22:04)
--- NOTE | 2023-05-26 22:32 | Hospitalist Progress Note ---
Date of Service May 26, 2023 Assessment & Plan (1) Bacteremia due to Clostridium species: Plan: Unsure of source. Ordered TTE Ordered ct abd/pelvis These were negative. Appreciate ID note: have established gameplan for discharge. However, discharge will be held due to his persistent hypoglycemia and lack of appetite. Will increase his reglan to 5 mg PO TID Will obtain a gastric empyting study. I reviewed his notes and did not find a completed report in his chart will order for 05/27 (2) Bacteremia due to Enterococcus: Plan: as above. (3) Metabolic encephalopathy: Plan: Present on admission. Now resolved. Supportive care-Admit to the PCU on tele and pulse oximetry (4) Hypoglycemia: Plan: Present on admission. Had been resolved, but again became hypoglycemic on 05/26 will increase reglan for concern of gastroparesis (5) ESRD on dialysis: Plan: [facility] nephrology consultation appreciated. He receives hemodialysis every Wednesday and Wednesday. Serial labs. Monitor intake and output. (6) Acute on chronic anemia: Plan: No overt GI bleeding. Serial labs. Transfuse as necessary. (7) C. difficile diarrhea: Plan: Continue oral vancomycin therapy. Diarrhea has resolved. Blood culture is positive: repeating cultures. unsure if this is a contaminant, however switching to dapto and flagyl. WIll order a TTE and will order a ct scan of abd/pelvis (8) Elevated troponin: Plan: No evidence of acute coronary syndrome. Denies chest pain . Suspect demand ischemia etiology (9) Paroxysmal atrial flutter: Plan: Stable . Continue amiodarone. Telemetry (10) Hyponatremia: Plan: Mild. No intervention necessary at this time. Serial labs. (11) Congestive heart failure: Plan: Chronic combined systolic and diastolic CHF. No overt CHF at this time. Monitor intake and output. Continue Entresto along with other medications (12) Sacral wound: Plan: Small pressure sore on the sacrum without signs of infection . Wound care nurse assistance appreciated (13) Cirrhosis: Plan: No intervention at this time. Serial labs (14) Hypertension: Plan: Stable. Continue current medical management (15) GERD (gastroesophageal reflux disease): Plan: Stable. Continue intravenous PPI therapy Plan Anticipate eventual discharge to previous living arrangements Will need to improve his oral intake priro to discharge. Admission and Anticipated Discharge Date Admission Date: May 21, 2023 Subjective Patient reports he is doing well. His sister in law is at bedside and his is on the phone. She is concerned that her is not eating at all, and he has been getting low blood sugars at home. Anything he eats, he feels he needs to vomit. Review of Systems Review of Systems: All systems reviewed & are unremarkable except as noted in HPI & below Physical Exam Physical Exam: General-alert and oriented x3, no fevers, no chills. Obese HEENT-head atraumatic and normocephalic, pupils equal and reactive to light, extraocular muscles intact Neck-no lymphadenopathy or thyromegaly, trachea midline Chest-clear to auscultation percussion. No rales wheezing or rhonchi Cardiac-regular rate and rhythm, normal S1 and S2, no murmurs Abdomen-normal bowel sounds, nontender, no hepatosplenomegaly Extremities-chronic bilateral lower extremity edema below the knees Neuro-cranial nerves II through XII intact Psych-flat affect Results & Data Results & Data Vital Signs (Past 12 Hours) Vital Signs Temp Pulse Pulse Pulse Resp BP BP 05/26/23 20:16 36.7 C 70 20 05/26/23 15:23 36.4 C L 85 19 161/77 H 05/26/23 13:10 36.6 C 72 163/56 H 05/26/23 13:03 88 126/74 05/26/23 13:15 36.6 C 78 163/56 H 05/26/23 13:00 85 102/68 05/26/23 12:30 70 129/68 05/26/23 12:04 72 140/72 05/26/23 12:00 80 135/73 05/26/23 11:30 79 140/78 05/26/23 11:00 77 159/79 H BP Pulse Ox O2 Del Method 05/26/23 20:16 159/97 H 93 Room Air 05/26/23 15:23 94 Room Air 05/26/23 13:10 05/26/23 13:03 05/26/23 13:15 05/26/23 13:00 05/26/23 12:30 05/26/23 12:04 05/26/23 12:00 05/26/23 11:30 05/26/23 11:00 PG Care Time/CCT Total # of Minutes Spent Total Time Spent with Patient: Total time spent is greater than 50% in coordination of care (as documented) at patient's floor/unit and/or counseling patient: Coding Level of Care Code 12331 SUB INP/OBS CARE 3/50MIN Diagnoses Bacteremia due to Clostridium species R78.81; B96.89 Bacteremia due to Enterococcus R78.81; B95.2 Metabolic encephalopathy G93.41 Hypoglycemia E16.2 ESRD on dialysis N18.6; Z99.2 Acute on chronic anemia D64.9 C. difficile diarrhea A04.72 Elevated troponin R77.8 Paroxysmal atrial flutter I48.92 Hyponatremia E87.1 Congestive heart failure I50.9 Sacral wound S31.000A Cirrhosis K74.60 Hypertension I10 GERD (gastroesophageal reflux disease) K21.9
[2023-05-27] MEDS: HYDROCORTISONE SOD 25 MG in SYRINGE 0 ML IV SCH ×3 (01:32→17:35)
[2023-05-27] MEDS: metroNIDAZOLE 500 MG TAB PO SCH ×2 (08:40→21:09)
[2023-05-27] MEDS: PANTOprazole 40 MG in SYRINGE 0 ML IV SCH ×2 (08:40→20:54)
[2023-05-27] MEDS: AMIODARONE 200 MG TAB PO SCH ×2 (08:41→21:10)
[2023-05-27] MEDS: METOCLOPRAMIDE HCL 5 MG TABLET PO SCH ×3 (08:41→17:34)
[2023-05-27] MEDS: carvediloL 6.25 MG TAB PO SCH ×2 (08:41→21:11)
[2023-05-27] MEDS: VALSARTAN/SACUBITRIL 26/24MG TAB PO SCH ×2 (08:41→21:10)
[2023-05-27] MEDS: VANCOMYCIN HCL 125 MG/2.5ML SOLN PO SCH (08:43)
--- NOTE | 2023-05-27 08:44 | Hospitalist Progress Note ---
Date of Service May 27, 2023 Assessment & Plan (1) Bacteremia due to Clostridium species: Plan: Unsure of source. bacteremia of both enterococcus and Clostridium perfringens Ordered TTE, ct abd/pelvis, These were negative. Appreciate ID note: Follow-up 05/21 BCx for finalization--although will cover for VRE even if this is not able to be grown on blood culture. -Continuedaptomycin 625 mg dosed three times a week after HD(~8.8 mg/kg by adjusted body weight of 71 kg) to cover E faecalis, VRE. Complete a 14 day course withlast dose on 06/04/23. -Switched from IV to PO metronidazole. Continuemetronidazole 500 mg PO BID to complete a 7 day coursethrough 05/29/23to cover Clostridium perfringens. Administer PM dose after dialysis on HD days. -For C diff, pt has completed 10 days of oral vanc for treatment. Switched tovancomycin 125 mg PO once dailyfor prophylaxis while on systemic antibiotics. Continuethrough 06/11(1 week after completion of systemic antbiotics) persistent hypoglycemia poor appetite, convinced she can do a better job at home increased his reglan to 5 mg PO TID cannot obtain a gastric emptying study for approx 2 weeks due to equipment and supplies. (2) Metabolic encephalopathy: Plan: Present on admission secondary to bacteremia Now resolved. Supportive care (3) Hypoglycemia: Plan: Present on admission. secondary to Nesidioblastosis ( hypertrophy of islet cells of pancreas) will increase reglan for concern of gastroparesis [facility] endocrinology recommended diazoxide 30 mg tid and hydrocortisone to help with hypoglycemia (4) ESRD on dialysis: Plan: [facility] nephrology consultation appreciated. He receives hemodialysis every Wednesday and Wednesday. Serial labs. Monitor intake and output. (5) Acute on chronic anemia: Plan: No overt GI bleeding. Serial labs. Transfuse as necessary. (6) C. difficile diarrhea: Plan: Continue oral vancomycin therapy. Diarrhea has resolved. Blood culture is positive: repeating cultures. unsure if this is a contaminant, however switching to dapto and flagyl. WIll order a TTE and will order a ct scan of abd/pelvis (7) Elevated troponin: Plan: No evidence of acute coronary syndrome. Denies chest pain . Suspect demand ischemia etiology (8) Paroxysmal atrial flutter: Plan: Stable . Continue amiodarone. (9) Hyponatremia: Plan: Mild. No intervention necessary at this time. Serial labs. (10) Congestive heart failure: Plan: Chronic combined systolic and diastolic CHF. No overt CHF at this time. Monitor intake and output. Continue Entresto along with other medications (11) Sacral wound: Plan: Small pressure sore on the sacrum without signs of infection . Wound care nurse assistance appreciated (12) Cirrhosis: Plan: No intervention at this time. Serial labs Plan Anticipate eventual discharge to previous living arrangements Will need to improve his oral intake prior to discharge. spoke to on 05/27 unsure if can care for him if not eating well Admission and Anticipated Discharge Date Admission Date: May 21, 2023 Subjective pt with poor po intake, still with symptomatic hypoglycemia Physical Exam Physical Exam: when not hypoglycemic is awake and alert, a bit confused at times no shortness of breath cardiac is regular lungs are clear Results & Data Results & Data Vital Signs (Past 12 Hours) Vital Signs Temp Pulse Pulse Resp BP Pulse Ox O2 Del Method 05/27/23 08:01 Room Air 05/27/23 07:10 98.2 F 71 18 147/63 H 95 Room Air 05/27/23 03:33 97.7 F 70 16 145/99 H 96 Room Air 05/26/23 23:32 72 05/26/23 23:15 98.1 F 73 20 155/84 H 93 Room Air 05/26/23 22:46 Room Air PG Care Time/CCT Total # of Minutes Spent Total Time Spent with Patient: Total time spent is greater than 50% in coordination of care (as documented) at patient's floor/unit and/or counseling patient: Coding Level of Care Code 64311 SUB INP/OBS CARE 2/35MIN Diagnoses Bacteremia due to Clostridium species R78.81; B96.89 Metabolic encephalopathy G93.41 Hypoglycemia E16.2 ESRD on dialysis N18.6; Z99.2 Acute on chronic anemia D64.9 C. difficile diarrhea A04.72 Elevated troponin R77.8 Paroxysmal atrial flutter I48.92 Hyponatremia E87.1 Congestive heart failure I50.9 Sacral wound S31.000A Cirrhosis K74.60
[2023-05-27] MEDS: DIAZOXIDE PO SCH ×3 (08:46→20:56)
[2023-05-27] MEDS: CARBOHYDRATES FOR HYPOGLYCEMIA PO PRN (16:49)
[2023-05-27] MEDS: allopurinoL 100 MG TAB PO SCH (21:09)
[2023-05-27] MEDS: VENLAFAXINE HCL XR 75 MG CAPXR PO SCH (21:10)
[2023-05-28] MEDS: HYDROCORTISONE SOD 25 MG in SYRINGE 0 ML IV SCH ×2 (00:05→12:26)
[2023-05-28] MEDS ORDERED: SODIUM CHLORIDE 0.9% 1000ML 1,000 ML IV PRN (07:00)
[2023-05-28] MEDS ORDERED: EPOETIN ALFA 20,000 UNITS/ML VIAL IV ONE (07:00)
--- NOTE | 2023-05-28 11:20 | Dialysis Progress Note ---
Date of Service May 28, 2023 Assessment & Plan Admission and Anticipated Discharge Date Admission Date: May 21, 2023 Subjective Assessment & Plan (1) End stage renal disease on dialysis: End-stage renal disease on dialysis Wednesday and is getting dialysis today as per his normal schedule. It does not appear patient has been eating drinking much as he is potassium seems to be low creatinine is lower. It is very hard to assess the true fluid status in a dialysis patient. With recent C. difficile he has had diarrhea so I do not believe that he is actually volume overloaded now. No issues with Dialysis today next HD on Wednesday No major issue with Lytes or fluid overload. (2) Altered mental status: Unclear etiology but probably multifactorial. Sometimes mental status does improve after dialysis. We will follow (3) C. difficile diarrhea + enterococcus bacteremia: reviewed ID note. 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 The effect of excessive insulin production is made even worse by ESRD the metabolism/degradation of insulin is even slower causing more hypoglycemia Continue diazoxide glucose tab steroid endocrinology recommendation after recent hospitalization and discharged [place] [facility] [place]--Seen during dialysis. No issues reported so far. BP and CVC fine. Also he seems more alert. Physical Exam: General:More alert. chronically ill-appearing HEENT:Normocephalic, atraumatic, no scleral icterus, pupils around round, symmetrical, and reactive to light, Chest/Pulm:Dialysis cath located in the left upper chest without signs of infection, No respiratory distress, symmetrical chest expansion, clear breath sounds throughout Cardiac:RRR, no murmurs noted Abdomen:Negative for ascites, soft, non-tender to palpation throughout Musculoskeletal:patient will intermittently move upper and lower extremities voluntarily but is too lethargic to follow commands, no acute trauma noted Extremities:, no edema noted in the BL LE's Skin:Patient with minor skin breakdown at the sacrum without ulceration or significant erythema, right lateral calf skin tear currently with scab in place and without drainage Neuro:Patient will momentarily open eyes when yelling name or sternal rub but quickly falls back asleep, did not follow commands, Results & Data Vital Signs (Past 12 Hours) Vital Signs Temp Pulse Pulse Pulse Resp BP BP 05/28/23 10:30 45 L 121/48 L 05/28/23 10:00 66 131/88 05/28/23 09:30 49 L 102/78 05/28/23 09:00 82 101/67 05/28/23 08:30 43 L 126/93 05/28/23 08:00 77 123/74 05/28/23 07:30 74 153/79 H 05/28/23 07:28 75 149/76 H 05/28/23 07:20 36.6 C 75 05/28/23 07:26 73 05/28/23 02:51 36.7 C 72 18 151/69 H Pulse Ox O2 Del Method 05/28/23 10:30 05/28/23 10:00 05/28/23 09:30 05/28/23 09:00 05/28/23 08:30 05/28/23 08:00 05/28/23 07:30 05/28/23 07:28 05/28/23 07:20 05/28/23 07:26 05/28/23 02:51 96 Room Air
[2023-05-28] MEDS: METOCLOPRAMIDE HCL 5 MG TABLET PO SCH ×2 (11:48→12:07)
[2023-05-28] MEDS: CARBOHYDRATES FOR HYPOGLYCEMIA PO PRN (12:05)
[2023-05-28] MEDS: VALSARTAN/SACUBITRIL 26/24MG TAB PO SCH (12:07)
[2023-05-28] MEDS: carvediloL 6.25 MG TAB PO SCH (12:07)
[2023-05-28] MEDS: AMIODARONE 200 MG TAB PO SCH (12:08)
[2023-05-28] MEDS: metroNIDAZOLE 500 MG TAB PO SCH (12:08)
[2023-05-28] MEDS: DIAZOXIDE PO SCH ×2 (12:12→14:42)
[2023-05-28] MEDS: PANTOprazole 40 MG in SYRINGE 0 ML IV SCH (12:25)
[2023-05-28] MEDS: VANCOMYCIN HCL 125 MG/2.5ML SOLN PO SCH (12:25)
--- NOTE | 2023-05-28 14:11 | Discharge Summary ---
Date of Service May 28, 2023 Admission HPI Per Admitting Provider 62 YO wheelchair bound male with medical history of HFrEF, VTACH, ESRD (MWF), anemia, BROWN cirrhosis, afib/PAF(not on anticoagulation), HLD, Gastroporesis, Gout, Upper GI bleed in January of this year, DM, CAD with STENTS and CABG, ELLA (noncompliant with CPAP), Depression, Nesidioblastosis, C. diff (On PO Vancomycin) who presented to the [facility] ED via EMS on 05/21 due to increased AMS. In the ED vitals were stable. Labs were significant for a Hgb of 8.3 (down from 11 as of 05/01), stable platelets at 98, cr of 3.65, glucose of 80, sodium of 132, Bicarb of 35, chloride of 94, Ammonia WNL, initial high sen trop of 102, procal of 0.92. CT of the head was read as "There is no hemorrhage, mass effect, or evidence of acute territorial ischemia by CT criteria noting a motion degraded examination.". Chest xray was read as "1. Cardiomegaly without radiographic evidence of congestive failure. 2. Low lung volumes with bibasilar atelectasis.". We were asked to admit the patient for ongoing AMS without clear etiology. Per chart review, the patient was recently admitted to [facility] from 04/28-05/04 with subsequent transfer to [facility] on 05/04 for ongoing Hypoglycemia. Per the DC summary scanned in our system, the patient was evaluated by Endocrinology and eventually diagnosed with Nesidioblastosis and was initially started on a small snack q4h but had to be transitioned to 4 glucose tabs q4h, BID hydrocortisone, and TID Diazoxide with improvement in his symptoms. His hospitalization was complicated by multiple episodes of diarrhea, he was found to be positive for C. Diff and was started on PO Vancomycin. Per the DC summary his Entresto was restarted, his dose of Carvedilol was reduced due to hypotension, and his lasix was discontinued. At the time of the exam the patient lying in bed in no acute distress with his /POA at bedside, history was obtained from his . Since coming home from [facility] last Wednesday the patient had been at his baseline mental status. She describes this as intermittent confusion but mostly alert, oriented, and polite. Starting yesterday the patient began to act significantly more confused and agitated. He was having visual hallucinations of people in his room and has been very agitated and rude towards his , which is not like him. The patient has not had any medication this am, his was having a very difficult time getting him to take medications. The patient is supposed to get 4 glucose tabs, q6h, she has only been able to give one dose daily as he refuses to take more. He has been non-compliant with his HS CPAP machine for years. She was unable to wake him up enough for dialysis which is why she called EMS. She denies that patient having recent fevers or recent trauma. We discussed code status, his has made him a DNR/DNI as his quality of life continues to decline. Review of the EMS documentation shows the patient's glucose to have been 59, he was given 25 mL of dextrose in route. Please refer to Dr. Naik's attestation for any changes to the treatment plan Principal Diagnosis enterococcal bacteremia clostridium bacteremia c diff prophylaxis esrd on dialysis Nesidioblastosis Discharge Exam Pt is awake and alert, slightly confused cardiac exam with rate controlled lungs are clear Discharge Data Allergies Allergy/AdvReac Type Severity Reaction Status Date / Time oxycodone [From Percocet] Allergy Intermediate Itching Verified 05/21/23 12:36 promethazine [From Phenergan] AdvReac Intermediate Makes Verified 05/21/23 12:36 "mean" simvastatin [From Zocor] AdvReac Intermediate Headache Verified 05/21/23 12:36 Consultations 05/21/23 11:29 Consult Nephrology Routine 05/22/23 09:56 Consult Infectious Diseases Routine Ordered Studies 05/21/23 07:42 CT head/brain wo con Stat 05/25/23 08:47 CT abd pelvis oral and IV con Urgent Hospital Course (1) Bacteremia due to Clostridium species: Unsure of source. bacteremia of both enterococcus and Clostridium perfringens Ordered TTE, ct abd/pelvis, These were negative. Appreciate ID note: Follow-up 05/21 BCx for finalization--although will cover for VRE even if this is not able to be grown on blood culture. -Continuedaptomycin 625 mg dosed three times a week after HD(~8.8 mg/kg by adjusted body weight of 71 kg) to cover E faecalis, VRE. Complete a 14 day course withlast dose on 06/04/23. -Switched from IV to PO metronidazole. Continuemetronidazole 500 mg PO BID to complete a 7 day coursethrough 05/29/23to cover Clostridium perfringens. Administer PM dose after dialysis on HD days. -For C diff, pt has completed 10 days of oral vanc for treatment. Switched tovancomycin 125 mg PO once dailyfor prophylaxis while on systemic antibiotics. Continuethrough 06/11(1 week after completion of systemic antbiotics) persistent hypoglycemia poor appetite, convinced she can do a better job at home increased his reglan to 5 mg PO TID cannot obtain a gastric emptying study for approx 2 weeks due to equipment and supplies. may consider outpt scheduling but not clear of impact on future care (2) Metabolic encephalopathy: Present on admission secondary to bacteremia Now resolved. Supportive care (3) Hypoglycemia: Present on admission. 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 He receives hemodialysis every Wednesday and Wednesday. Serial labs. Monitor intake and output. (5) Acute on chronic anemia: No overt GI bleeding. Serial labs. Transfuse as necessary. (6) C. difficile diarrhea: Continue oral vancomycin therapy. Diarrhea has resolved. ID recommends continued preventative dose for one week after antibiotics are done (7) Elevated troponin: No evidence of acute coronary syndrome. Denies chest pain . Suspect demand ischemia etiology (8) Paroxysmal atrial flutter: Stable . Continue amiodarone. (9) Hyponatremia: Mild. No intervention necessary at this time. Serial labs. (10) Congestive heart failure: Chronic combined systolic and diastolic CHF. No overt CHF at this time. Monitor intake and output. Continue Entresto along with other medications as long as bp tolerated (11) Sacral wound: Small pressure sore on the sacrum without signs of infection . Wound care nurse assistance appreciated (12) Cirrhosis: No intervention at this time. Serial labs Plan Anticipate eventual discharge to previous living arrangements Will need to improve his oral intake at home to assure avoidance of low blood sugars Total Time Total Time Spent Total Time Spent (In Minutes): It required greater than 30 minutes to prepare this patient for discharge Discharge Plan Discharge Items Patient Disposition: Home - Home Health Services Reason For Visit: ALTERED MENTAL STATUS Discharge Diagnosis: enterococcal bacteremia c diff prophylaxis esrd on dialysis Nesidioblastosis Activity: Resume your previous activity Non-emergency contact: Primary Care Provider Call non-emergency contact if: your symptoms worsen Follow-up/Referrals: Yoandy Javed MD [Primary Care Provider] - Diet: Dialysis Renal Addtl Attending Provider Instructions: you will be given antibiotics with your dialysis sessions thru june 04 you will be continued on oral vancomycin thru 06/11/23 you will have 3 doses of antibiotics for clostridium increase your Daizoxide to 1 ml or 50 mg three times a day and please have small amounts of high sugary foods through the day please follow up with your primary care promptly Pending Studies at Discharge: No Stand-Alone Forms: My [employer], Smoking Cessation Medications and DC Order Prescriptions: New metronidazole 500 mg Tablet 500 mg PO BID Qty: 3 0RF vancomycin 1,000 mg Recon Soln 125 mg PO DAILY Qty: 14 0RF Continued atorvastatin 40 mg tablet 40 mg PO HS Qty: 90 3RF bupropion HCl 100 mg tablet sustained-release 12 hr 100 mg PO DAILY Qty: 90 3RF venlafaxine 225 mg tablet extended release 24hr 225 mg PO HS Qty: 90 3RF metoclopramide HCl 5 mg tablet 2.5 mg PO TIDM Qty: 135 1RF amiodarone 200 mg tablet 200 mg PO BID Qty: 180 3RF ondansetron 4 mg tablet,disintegrating 4 mg PO TID PRN (Reason: Nausea) Qty: 270 1RF colesevelam [WelChol] 625 mg tablet 1,875 mg PO BIDM Qty: 540 1RF glucose 4 gram tablet,chewable 16 g PO DIRECTED PRN (Reason: .low bsg) Rx Instructions: take 4 tablets as directed until BSG is over 50 [facility] 04/2023 pantoprazole [Protonix] 40 mg tablet,delayed release (DR/EC) 40 mg PO DAILY Rx Instructions: [facility] 04/2023 allopurinol 100 mg tablet 100 mg PO HS Rx Instructions: [facility] 04/2023- decreased from 200 mg sacubitril-valsartan 24-26 mg tablet 1 tab PO BID Rx Instructions: [facility] 04/2023 lorazepam 1 mg tablet See Rx Instructions PO HS PRN (Reason: Sleep) Rx Instructions: take 1 mg to 1.5 mg (1.5 tablets) sleep [facility] 04/2023 increased from 0.5 mg prn nystatin 100,000 unit/gram cream 1 applic TOP BID PRN (Reason: Skin Irritation) Patient Comments: to foot and groin ; Rx Instructions: APPLY TO GROIN & BETWEEN TOES. 6 am and 6 pm darbepoetin tye in polysorbat 100 mcg/0.5 mL syringe 10 mcg subcut WK glucagon 1 mg/mL recon soln 1 mg IM .COMPLEX PRN (Reason: Low bsg) Rx Instructions: 1 mg intramuscularly PRN if BSG less then 55 and patient unable to take anything PO PRN; NEW after [facility] 05/14/23 hydrocortisone [Cortef] 10 mg tablet 10 mg PO BID Rx Instructions: NEW after [facility] 05/14/23 Lokelma 5 gram powder in packet 5 g PO .Q AM Rx Instructions: says they can not afford to fern picker med.NEW after [facility] 05/14/23 Renal Vitamin 0.8 mg tablet 1 tab PO DAILY Rx Instructions: NEW after [facility] 05/14/23- Listed as a "changed Med" nitroglycerin 0.4 mg tablet, sublingual 0.4 mg SL DIRECTED PRN (Reason: Chest Pain) Rx Instructions: NEEDED FOR CHEST PAIN : ONE TABLET UNDER THE TONGUE EVERY 5 MINUTES UP TO 3 DOSES. promethazine 12.5 mg tablet 12.5 mg PO Q6H PRN (Reason: NAUSEA/VOMITING) Rx Instructions: PER PT'S SO "GIVE ONE IN AM, HAS NOT VOMITTED ALL DAY". carvedilol 12.5 mg tablet 6.25 mg PO BID famotidine 20 mg Tablet 20 mg PO BID Changed diazoxide [Proglycem] 50 mg/mL suspension 50 mg PO TID Qty: 90 0RF Discontinued vancomycin 125 mg capsule 125 mg PO .Q6HRS Discharge Orders: Discharge Order (Routine); Ordered 05/28/23 Ordered By: Nikolas Nguyen Admission Data Admit Date/Time: 05/21/23 10:47 Attending Provider: Nikolas Nguyen Admit Provider: Rustam Coles Primary Care Provider: Yoandy Javed Other Providers: Yan Mcdonald ; Mariella Kaufman ; Roney York ; Katrina Blankenship ; Edwige Sandoval ; Sahara Burns ; Raven Olivares ; Megan Garcia ; Ting Forman ; Lola Lora Coding Level of Care Code 24974 INP/OBS DISCH >30 MIN Diagnoses Bacteremia due to Clostridium species R78.81; B96.89 Metabolic encephalopathy G93.41 Hypoglycemia E16.2 ESRD on dialysis N18.6; Z99.2 Acute on chronic anemia D64.9 C. difficile diarrhea A04.72 Elevated troponin R77.8 Paroxysmal atrial flutter I48.92 Hyponatremia E87.1 Congestive heart failure I50.9 Sacral wound S31.000A Cirrhosis K74.60
== END 2023-05-28 16:13 | disposition home health service (06) | DRG 871 ==
LOC: ED 07:07 → SUATTDRO 10:47 → 2E 12:33 → SUATTDRO 12:55

== ENCOUNTER 2023-06-02 10:58 | Inpatient (IN) ==
[2023-06-02] MEDS ORDERED: DEXTROSE 50% 50 ML SYRINGE IV ONE (11:11)
[2023-06-02] MEDS ORDERED: SODIUM CHLORIDE 0.9% 500 ML IV ONE (11:29)
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
--- NOTE | 2023-06-02 11:55 | XRay Report ---
XR chest 1V portable CLINICAL HISTORY: Sepsis TECHNIQUE: Single frontal radiograph of the chest was obtained. Comparison: Comparison is made to chest radiograph 05/21/2023 FINDINGS: Median sternotomy wires are unchanged. Right dual-lumen catheter is seen. Calcified aortic knob is se en. Lungs are underinflated but clear. No evidence of pleural effusion or pneumothorax. IMPRESSION: No acute abnormalities and in particular no radiographic evidence of pneumonia. ACT 112: Negative or not required by law. Electronically signed by: Dean Alatorre M.D. 06/02/2023 11:54 AM
[2023-06-02 12:13] LABS: Base Excess VBG 7.4 mEq/L; HCO3 VBG 33 mmol/L; Oxygen Saturation VBG < 60.0 %; PCO2 VBG 54 mmHg (38-50); PO2 VBG 24 mmHg
[2023-06-02 12:25] LABS: Albumin Level 2.2 gm/dl (3.4-5.0); BUN Creatinine Ratio 3.3 (10-20); Bilirubin Direct 0.3 mg/dl (0-0.2); Bilirubin,Total 0.9 mg/dl (0.2-1.0); Calcium 7.8 mg/dl (8.6-10.3); Creatinine Clr Calc Pharmacy 18.6 ml/min; Est GFR (Non-African American) 13.8 ml/min; Magnesium 1.8 mg/dl (1.7-2.4); Potassium 3.1 mmol/L (3.5-5.1); Total Protein 4.7 gm/dl (6.0-8.3)
[2023-06-02 12:33] LABS: Troponin I High Sensitivity 252.7 pg/ml (0-20)
[2023-06-02 12:40] LABS: Basophils # (auto) 0.01 K/uL (0-0.2); Basophils % (auto) 0.1 %; Hematocrit (blood only) 33.1 % (42.0-52.0); Hemoglobin 10.7 g/dl (14.0-18.0); Immature Granulocytes # (auto) 0.03 K/uL (0.01-0.20); Immature Granulocytes % (auto) 0.4 %; Lymphocytes # (auto) 1.06 K/uL (1.2-3.4); Lymphocytes % (auto) 13.3 %; Mean Corpuscular Hemoglobin 30.5 pg (25.0-34.0); Mean Corpuscular Hgb Conc 32.3 g/dL (32.0-36.0); Mean Corpuscular Volume 94.3 fL (80.0-100.0); Monocytes % (auto) 7.5 %; Neutrophils # (auto) 6.26 K/uL (1.40-6.50); Neutrophils % (auto) 78.7 %; Nucleated RBC # (auto) 0.03 K/uL (0-0.12); Nucleated RBC % (auto) 0.4 %; Platelet Count 56 K/uL (130-400); RDW Coefficient of Variation 19.4 % (11.5-14.5); RDW Standard Deviation 63.6 fL (36.4-46.3); Red Blood Count 3.51 M/uL (4.70-6.10); White Blood Count 7.96 K/ul (4.8-10.8)
[2023-06-02 12:57] LABS: INR 1.2 (0.9-1.1); Partial Thromboplastin Ratio 1.1; Partial Thromboplastin Time 31.1 Seconds (21.0-31.0)
[2023-06-02] MEDS ORDERED: VANCOMYCIN HCL 1,750 MG in SODIUM CHLORIDE 0.9% 500 ML IV ONE (13:15)
[2023-06-02] MEDS ORDERED: CEFEPIME 2,000 MG/20 ML VIAL IV STA (13:15)
[2023-06-02] MEDS ORDERED: VANCOMYCIN CONSULT ACTIVE PRN ×2 (13:15→17:55)
--- NOTE | 2023-06-02 13:16 | CT Scan Report ---
CT head/brain wo con CLINICAL HISTORY: AMS Technique: Contiguous axial CT images of the head were acquired from the base of the skull to the thaddeus rosaura without intravenous contrast administration. Images were viewed in brain, subdural and [facility]. Automated dose lowering techniques and/or adjustment according to patient size were utilized for this exam. Comparison: Comparison is made to CT head 05/21/2023 Findings: There is hypodensity and edema in the right posterior watershed which is not seen in prior exam. Imaged portions of the paranasal sinuses and mastoid air cells are clear. The orbits appear normal. There are no acute fractures of the calvaria or scalp swelling. Impression: Findings may represent acute right parietal infarct. Less likely, this may represent progression of c hronic white matter changes. No evidence of hemorrhage. ACT 112: Negative or not required by law. Electronically signed by: Dean Alatorre M.D. 06/02/2023 1:14 PM
--- NOTE | 2023-06-02 14:20 | Electrocardiogram Report ---
Test Reason : Blood Pressure : / mmHG Vent. Rate : 080 BPM Atrial Rate : 080 BPM P-R Int : 278 ms QRS Dur : 126 ms QT Int : 368 ms P-R-T Axes : 011 008 131 degrees QTc Int : 424 ms Sinus rhythm with 1st degree A-V block Non-specific intra-ventricular conduction block Minimal voltage criteria for LVH, may be normal variant Poor R wave progression, consider anterior TX vs. lead placement vs. LVH Abnormal ECG When compared with ECG of 21-MAY-2023 10:16, Nonspecific T wave abnormality now evident in Inferior leads Nonspecific T wave abnormality, worse in Lateral leads QT has shortened Confirmed by Joaquín Ramirez ([id number]) on 06/02/2023 2:20:37 PM Referred By: Confirmed By:Rosendo Ramirez
[2023-06-02] MEDS ORDERED: GLUCOSE 10 TAB/TUBE PO PRN (14:50)
[2023-06-02] MEDS ORDERED: GLUCAGON FOR INJ 1 MG VIAL SQ PRN (14:50)
[2023-06-02] MEDS ORDERED: GLUCOSE 40% GEL 15 GM TUBE PO PRN (14:50)
[2023-06-02] MEDS ORDERED: RASPBERRY SYRUP 5 ML UDP PO STA (15:57)
[2023-06-02] MEDS ORDERED: VANCOMYCIN HCL 125 MG/2.5ML SOLN PO STA (15:57)
[2023-06-02] MEDS ORDERED: HYDROCORTISONE 10 MG TAB PO STA (15:59)
[2023-06-02] MEDS ORDERED: DAPTOmycin 625 MG in SYRINGE 0 ML IV ONE (17:00)
--- NOTE | 2023-06-02 17:51 | CT Scan Report ---
CT SCAN OF THE RIGHT TIBIA AND FIBULA WITHOUT IV CONTRAST CLINICAL HISTORY: Right lower extremity wound. COMPARISON STUDY: No priors. TECHNIQUE: CT scan of the right tibia and fibula is performed from the distal femur to the ankle. Rody ges were reviewed in the axial, sagittal, and coronal planes. IV contrast was not administered for th is examination. A dose lowering technique was utilized adhering to the principles of ALARA. Note, int erpretation is suboptimal without plain film correlate. CT DOSE: 293.62 mGy.cm FINDINGS: The skeletal structures are osteopenic. There is no evidence of tibial or fibular fracture. No bony erosion or periostitis is seen. No lytic or blastic lesion is identified. The knee and ankle joints are grossly maintained. There is no knee joint effusion. There is generalized atrophy of the regional musculature. Advanced atherosclerotic calcification is seen in the regional arteries. No sof t tissue gas is identified throughout the right lower extremity. Scattered dermal calcifications/phle boliths are observed. Mild subcutaneous soft tissue edema and trace fluid is noted throughout the rig ht lower extremity. No organized fluid collection is seen to suggest abscess on this unenhanced exami nation. The Achilles tendon appears thickened and tendonotic. A dorsal heel spur is noted. The report ed right calf wound is not well-visualized by CT. IMPRESSION: 1. No acute bony abnormality is seen involving the right tibia or fibula. 2. Mild soft tissue edema and trace subcutaneous fluid is seen throughout the right lower extremity. 3. No soft tissue gas is seen and there is no evidence of fluid collection on this unenhanced examina tion. ACT 112: Negative or not required by law. Dictated: 06/02/2023 5:17 PM Transcribed: 06/02/2023 5:33 PM Teodoro [id number] [id number] Electronically signed by: Lane Escobar M.D. 06/02/2023 5:50 PM
[2023-06-02] MEDS ORDERED: PROMETHAZINE HCL 25 MG TAB PO PRN (17:55)
[2023-06-02] MEDS: CARBOHYDRATES FOR HYPOGLYCEMIA PO PRN ×2 (18:35→19:00)
[2023-06-02] MEDS: SUCRALFATE 1 GM/10 ML UDC PO SCH ×2 (18:39→20:36)
[2023-06-02] MEDS: METOCLOPRAMIDE HCL 5 MG TABLET PO SCH (18:40)
--- NOTE | 2023-06-02 18:49 | History & Physical Report ---
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 difficile diarrhea A04.72 Atrial fibrillation I48.91 Congestive heart failure I50.9 Cirrhosis K74.60 Gout M10.9 Hypertension I10
[2023-06-02] MEDS: metroNIDAZOLE 500 MG/100 ML BAG IV SCH (19:26)
[2023-06-02] MEDS: HYDROCORTISONE 10 MG TAB PO SCH (20:36)
[2023-06-02] MEDS: carvediloL 6.25 MG TAB PO SCH (20:36)
[2023-06-02] MEDS: VENLAFAXINE HCL XR 75 MG CAPXR PO SCH (20:36)
[2023-06-02] MEDS: FAMOTIDINE 20 MG TAB PO SCH (20:36)
[2023-06-02] MEDS: VALSARTAN/SACUBITRIL 26/24MG TAB PO SCH (20:36)
[2023-06-02] MEDS: AMIODARONE 200 MG TAB PO SCH (20:37)
[2023-06-02] MEDS: allopurinoL 100 MG TAB PO SCH (20:37)
[2023-06-02] MEDS ORDERED: metroNIDAZOLE 500 MG TAB PO SCH (21:00)
[2023-06-02] MEDS ORDERED: HYDROCORTISONE 10 MG TAB PO SCH (21:00)
[2023-06-02] MEDS ORDERED: ATORVASTATIN 40 MG TAB PO SCH (21:00)
--- NOTE | 2023-06-02 23:20 | Ultrasound Report ---
ULTRASOUND RIGHT LOWER EXTREMITY ARTERIAL CLINICAL HISTORY: Right leg wounds. Diabetes. COMPARISON STUDY: Right lower extremity arterial ultrasound dated 07/31/2014. TECHNIQUE: Real-time grayscale and color Doppler sonography of the arteries of the right lower extrem ity is performed from the inguinal crease to the foot. Ankle-brachial indices could not be assessed d ue to restless legs. FINDINGS: Atherosclerotic plaque and irregularity seen throughout the arteries of the right lower ext remity. There are triphasic arterial waveforms in the common femoral artery with velocities measuring up to 145 cm/s. No flow was shown in the profunda femoris artery and this is likely occluded. Biphas ic arterial waveforms are seen throughout the superficial femoral artery with velocities measuring up to 69 cm/s. There are biphasic waveforms in the popliteal artery with velocities measuring up to 54 cm/s. There is 2-vessel runoff to the right foot. The peroneal artery was not visualized and likely o ccluded. Monophasic arterial waveforms are shown in the calf vessels. The posterior tibial artery is patent with velocities measuring up to 75 cm/s, and the anterior tibial artery is patent with velocit ies measuring up to 59 cm/s. The dorsalis pedis artery is patent with velocities measuring up to 41 c m/s. IMPRESSION: 1. No flow was shown in the profunda femoris artery and this is likely occluded. 2. There is 2-vessel runoff to the foot. No flow is shown within the peroneal artery and this is like ly occluded. 3. The remaining right lower extremity vessels are patent noting atherosclerotic plaque and irregular ity. 4. Ankle-brachial indices could not be assessed. Dictated: 06/02/2023 10:04 PM Transcribed: 06/02/2023 11:15 PM Ld [id number] Rosa Isela [id number] Electronically signed by: Lane Escobar M.D. 06/02/2023 11:18 PM
[2023-06-03] MEDS: metroNIDAZOLE 500 MG/100 ML BAG IV SCH ×3 (01:39→17:15)
[2023-06-03] MEDS: CARBOHYDRATES FOR HYPOGLYCEMIA PO PRN ×3 (06:35→17:10)
[2023-06-03] MEDS: AMIODARONE 200 MG TAB PO SCH ×2 (07:30→21:00)
[2023-06-03] MEDS: buPROPion SR 100 MG TABCR PO SCH (07:31)
[2023-06-03] MEDS: FUROSEMIDE 40 MG TAB PO SCH (07:31)
[2023-06-03] MEDS: PANTOprazole 40 MG TAB PO SCH (07:31)
[2023-06-03] MEDS: FAMOTIDINE 20 MG TAB PO SCH ×2 (07:31→21:00)
[2023-06-03] MEDS: carvediloL 6.25 MG TAB PO SCH ×2 (07:31→21:00)
[2023-06-03] MEDS: VALSARTAN/SACUBITRIL 26/24MG TAB PO SCH ×2 (07:31→21:00)
[2023-06-03] MEDS: METOCLOPRAMIDE HCL 5 MG TABLET PO SCH ×3 (07:32→17:13)
[2023-06-03] MEDS: SUCRALFATE 1 GM/10 ML UDC PO SCH ×4 (07:33→21:00)
[2023-06-03] MEDS: VANCOMYCIN HCL 125 MG/2.5ML SOLN PO SCH (07:33)
[2023-06-03] MEDS: HYDROCORTISONE 10 MG TAB PO SCH ×2 (07:33→21:00)
--- NOTE | 2023-06-03 08:30 | Hospitalist Progress Note ---
Date of Service June 03, 2023 Assessment & Plan (1) Acute alteration in mental status: Plan: Metabolic encephalopathy with possible etiologies including infection (bacteremia vs. RLE cellulitis), CVA, pain 2/2 RLE arterial occlusion, severe hypoglycemia -Patient was sent to the ED from dialysis 06/02 due to increased confusion and agitation after initiation of dialysis -He is without leukocytosis, but was also without leukocytosis on his last admission when diagnosed with bacteremia -Episodes of hypoglycemia, known pancreatic dysfunction, see below -Procal elevated, possibly due to infection vs. ESRD -Lactate initially elevated at 3 on arrival, decreased to 1.5 on repeat check -CT Head wo con with possible acute right parietal infarct vs. chronic white matter changes -Patient does have a previous history of CVA and has a Hx of AFib, but is off all anticoagulants and antiplatelets due to several major GI bleeds and severe thrombocytopenia 2/2 cirrhosis -Cannot obtain MRI of the brain for further evaluation, due to history of several previous metal implants per -Continue IV daptomycin, Flagyl, and cefepime empirically to cover previous bacteremia agents, as well as possible gram negative organisms while new blood cultures are in process -Patient's spoken to on the phone, endorses feeling quite overwhelmed with Edgar's overall decompensation over the weeks to months, feels very powerless that he is in pain a lot, has a lot of difficulty moving around, cannot do the things that he used to enjoy doing. She reports that she feels that "he is towards the end of his life", and she does not want him to be in pain anymore. We discussed that if we are getting to a point where we did not feel we can perform an intervention that will improve his quality of life, we can discuss having palliative care involved. (2) Bacteremia due to Clostridium species: Plan: -Diagnosed on last admission -Does not appear that he completed the prescribed course of IV and PO Abx on last discharge -Will restart previous treatment with IV Daptomycin and Flagyl on admission -Continue IV cefepime for now to cover gram negative organisms (3) Peroneal artery occlusion, right: Plan: -RLE with significant pain with minimal palpation, has been worsening in the recent past per -Duplex RLE with evidence of occlusion of profunda femoris and peroneal arteries -Anticoagulation has been contraindicated in this patient due to history of several severe GI bleeds -Asked Vascular Surgery to evaluate patient to see if they have any possible interventions they can offer (4) End stage renal disease on dialysis: Plan: -Renal function and electrolytes are stable at this time -Will consult [facility] as this is who he follows with for HD while admitted -Continue home renal medications -Renal dialysis diet (5) Thrombocytopenia: Plan: -CBC reviewed, Plts 54 today -Platelets fluctuate per review of previous labs -No signs of active bleeding -Continue to monitor for now (6) Nesidioblastosis: Plan: -Diagnosed by [facility]ocr[facility] recently -Is the reason for his chronic hypoglycemia -Continue BID hydrocortisone -Is also on TID Diazoxide at home but we do not have on formulary, can see if his can bring in tomorrow when she comes to the hospital -Continue q4h BSG checks with hypoglycemia protocol (7) Elevated troponin: Plan: -Demand ischemia in setting of likely infection and poor clearance due to ESRD, troponins downtrending -Not acute significant ST segment or T-wave changes on ECG -Patient is without chest discomfort or SOB -Will continue to monitor on tele (8) Hypokalemia: Plan: -BMP reviewed, K now 4.0 -Will be conservative at this time and hold potassium supplementation today with his ESRD and short dialysis session, he does not make urine -Continue to monitor on tele and monitor daily renal function and electrolytes (9) Leg lesion: Plan: -Multiple chronic wounds on the RLE appear to have increased surround erythema and are tender to palpation -Wound likely due to arterial occlusion and insufficiency, see above -Continue broad spectrum antibiotics for now, follow blood cultures, wound nurse consult placed -If no improvement (10) C. difficile diarrhea: Plan: -Continue daily PO Vancomycin for prophylaxis while on broad spectrum Abx -Was supposed to continue until 06/11 per ID last admission (11) Atrial fibrillation: Plan: -Stable -Not on anticoagulation due to previous large GI bleeds and thrombocytopenia -Continue amiodarone (12) Congestive heart failure: Plan: -Appears euvolemic -Would be cautious with IV fluids due to HD status (13) Cirrhosis: Plan: -LFTs are stable -Ammonia WNL (14) Gout: Plan: -Continue allopurinol (15) Hypertension: Plan: -Stable -Continue carvedilol Plan -Deferring chemical DVT PPX due to thrombocytopenia and hx of major GI bleeding -Renal dialysis and HH diet Admission and Anticipated Discharge Date Admission Date: June 02, 2023 Subjective No acute events overnight. Edgar is pleasantly confused at times, but in general is aware that he is in the hospital, remembers having dialysis today, denies pain in his lower extremities, chest, abdomen, denies nausea or SOB. Physical Exam Constitutional: WD/WN, vitals as above Respiratory: normal respiratory effort, lungs clear to auscultation Cardiovascular: RRR no edema Gastrointestinal (Abdomen): normal bowel sounds, soft, nontender, no hepatosplenomegaly Skin: Large wound noted to posterior RIGHT calf, eschar 7x10cm in size, some surrounding erythema, very tender to palpation Psychiatric: A+Ox3, euthymic affect Results & Data Results & Data Vital Signs (Past 12 Hours) Vital Signs Temp Pulse Pulse Resp BP Pulse Ox O2 Del Method 06/03/23 07:40 36.4 C L 75 16 168/99 H 96 Room Air 06/03/23 07:30 75 06/03/23 03:20 79 06/03/23 03:19 36.5 C 74 18 135/76 96 Room Air 06/02/23 23:13 36.4 C L 80 16 140/75 95 Room Air PG Care Time/CCT Total # of Minutes Spent Total Time Spent with Patient: Total time spent is greater than 50% in coordination of care (as documented) at patient's floor/unit and/or counseling patient: Coding Level of Care Code 51300 SUB INP/OBS CARE 3/50MIN Diagnoses Acute alteration in mental status R41.82 Bacteremia due to Clostridium species R78.81; B96.89 Peroneal artery occlusion, right I70.201 End stage renal disease on dialysis N18.6; Z99.2 Thrombocytopenia D69.6 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 difficile diarrhea A04.72 Atrial fibrillation I48.91 Congestive heart failure I50.9 Cirrhosis K74.60 Gout M10.9 Hypertension I10
[2023-06-03 08:39] LABS: Basophils # (auto) 0.01 K/uL (0-0.2); Basophils % (auto) 0.2 %; Hematocrit (blood only) 30.6 % (42.0-52.0); Hemoglobin 9.9 g/dl (14.0-18.0); Immature Granulocytes # (auto) 0.02 K/uL (0.01-0.20); Immature Granulocytes % (auto) 0.4 %; Lymphocytes # (auto) 0.84 K/uL (1.2-3.4); Lymphocytes % (auto) 15.5 %; Mean Corpuscular Hemoglobin 30.4 pg (25.0-34.0); Mean Corpuscular Hgb Conc 32.4 g/dL (32.0-36.0); Mean Corpuscular Volume 93.9 fL (80.0-100.0); Monocytes # (auto) 0.27 K/uL (0.11-0.59); Neutrophils # (auto) 4.27 K/uL (1.40-6.50); Neutrophils % (auto) 78.9 %; Platelet Count 54 K/uL (130-400); RDW Coefficient of Variation 18.8 % (11.5-14.5); RDW Standard Deviation 61.6 fL (36.4-46.3); Red Blood Count 3.26 M/uL (4.70-6.10); White Blood Count 5.41 K/ul (4.8-10.8)
[2023-06-03 08:54] LABS: Albumin Globulin Ratio 0.9 (0.9-2); Albumin Level 1.9 gm/dl (3.4-5.0); BUN Creatinine Ratio 3.9 (10-20); Bilirubin,Total 0.9 mg/dl (0.2-1.0); Calcium 7.5 mg/dl (8.6-10.3); Creatinine Clr Calc Pharmacy 16.3 ml/min; Est GFR (African American) 14.7 ml/min; Est GFR (Non-African American) 12.7 ml/min; Globulin 2.2 gm/dl (2.5-4.0); Magnesium 1.9 mg/dl (1.7-2.4); Total Protein 4.1 gm/dl (6.0-8.3)
[2023-06-03 08:59] LABS: INR 1.3 (0.9-1.1); Prothrombin Time 13.7 Seconds (9.0-12.0)
[2023-06-03] MEDS ORDERED: SODIUM CHLORIDE 0.9% 1000ML 1,000 ML IV PRN (11:01)
[2023-06-03] MEDS: CEFEPIME 1,000 MG in SYRINGE 0 ML IV SCH (14:41)
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
[2023-06-03] MEDS: VENLAFAXINE HCL XR 75 MG CAPXR PO SCH (21:00)
[2023-06-03] MEDS: allopurinoL 100 MG TAB PO SCH (21:00)
[2023-06-03] MEDS ORDERED: hydrOXYzine HCl 25 MG TAB PO STA (22:00)
[2023-06-04] MEDS: metroNIDAZOLE 500 MG/100 ML BAG IV SCH ×2 (01:17→12:23)
[2023-06-04] MEDS ORDERED: SODIUM CHLORIDE 0.9% 1000ML 1,000 ML IV PRN ×2 (07:00→07:27)
--- NOTE | 2023-06-04 07:58 | Hospitalist Progress Note ---
Date of Service June 04, 2023 Assessment & Plan (1) Acute alteration in mental status: Plan: -Metabolic encephalopathy with possible etiologies including infection (bacteremia vs. RLE cellulitis), CVA, pain 2/2 RLE arterial occlusion, severe hypoglycemia -He is without leukocytosis, but was also without leukocytosis on his last admission when diagnosed with bacteremia -Procal elevated, possibly due to infection vs. ESRD. Lactate initially elevated at 3 on arrival, decreased to 1.5 on repeat check -Episodes of hypoglycemia, known pancreatic dysfunction, see below -CT Head wo con with possible acute right parietal infarct vs. chronic white matter changes -Unable to be on anticoagulants and antiplatelets due to several major GI bleeds and severe thrombocytopenia 2/2 cirrhosis -Unable to obtain MRI due to history of several previous metal implants per -Today had long conversation with patient's and sister regarding his multiple chronic, progressive medical conditions, including severe bleeding history, arterial occlusion in right lower extremity, possible recent stroke, bacteremia, BROWN cirrhosis with thrombocytopenia, CHF, hypoglycemia, and end- stage renal disease. Patient himself reports being tired and wanting to go home. is concerned about his suffering, and feels that our efforts are potentially prolonging suffering, and with this in mind decision was made today by patient and family to pursue comfort care. Ideally, he would be able to go home as soon as possible. I expressed that if we stop doing glucose checks and giving glucose, that he could continue to decline with regard to his low blood sugars. However, patient reports he does not want any more "pokes" or blood draws, and so BSG checks and labwork was discontinued. Glucose tablets also discontinued as patient does not like them and per "will not take them for her". Case Management made aware of wishes of family, Palliative Care consulted, and transfer to medical floor placed for comfort measures. Regarding possible infection, will keep IV antibiotics onboard until their stop times over the next 24 hours. Morphine, Ativan, Haldol, nausea medications ordered. Can continue home antidepressants, PPI/Pepcid for patient comfort. (2) Bacteremia due to Clostridium species: Plan: -Diagnosed on last admission -Does not appear that he completed the prescribed course of IV and PO Abx on last discharge -BCx this admission NGTD -To complete and stop antibiotics after 48 hour dosing is up (3) Peroneal artery occlusion, right: Plan: -RLE with significant pain with minimal palpation, has been worsening in the recent past per -Duplex RLE with evidence of occlusion of profunda femoris and peroneal arteries -Anticoagulation has been contraindicated in this patient due to history of several severe GI bleeds -Dr. Randall evaluated patient's imaging, unfortunately would not be candidate for intervention due to his comorbidities even if recommended (4) End stage renal disease on dialysis: Plan: -Renal function and electrolytes are stable at this time -[facility] HD consult discontinued for comfort care -Renal dialysis diet (5) Thrombocytopenia: Plan: -CBC reviewed, Plts 49 today -Platelets fluctuate per review of previous labs -No signs of active bleeding (6) Nesidioblastosis: Plan: -Diagnosed by [facility] Endocrinology recently -Is the reason for his chronic hypoglycemia -Continue BID hydrocortisone -On glucose tabs q6h at home, patient dislikes and will not take, will give things like soda/juice/crackers prn -BSG checks discontinued at family request (7) Elevated troponin: Plan: -Demand ischemia in setting of likely infection and poor clearance due to ESRD, troponins downtrending -Not acute significant ST segment or T-wave changes on ECG -Patient is without chest discomfort or SOB (8) Hypokalemia: Plan: -BMP reviewed, K now 3.3 in setting of poor oral intake. (9) Leg lesion: Plan: -Multiple chronic wounds on the RLE appear to have increased surround erythema and are tender to palpation -Wound likely due to arterial occlusion and insufficiency, see above -Continue broad spectrum antibiotics for now, follow blood cultures -Pain control with prn Tylenol/morphine (10) C. difficile diarrhea: Plan: -Continue daily PO Vancomycin for prophylaxis while on broad spectrum Abx -Was supposed to continue until 06/11 per ID last admission (11) Atrial fibrillation: Plan: -Stable -Not on anticoagulation due to previous large GI bleeds and thrombocytopenia (12) Congestive heart failure: Plan: -Appears euvolemic (13) Cirrhosis: Plan: -LFTs are stable -Ammonia WNL (14) Goals of care, counseling/discussion: Plan -Deferring chemical DVT PPX due to thrombocytopenia and hx of major GI bleeding -Renal dialysis and HH diet -Case Management looking into hospice benefits for patient, comfort care while admitted Admission and Anticipated Discharge Date Admission Date: June 02, 2023 Subjective No acute events overnight. Feeling tired today. Denies pain in his leg unless it gets moved. Physical Exam Constitutional: WD/WN, vitals as above Respiratory: breathing comfortably, no accessory muscle use Cardiovascular: non-tachycardic Skin: Large wound noted to posterior RIGHT calf, eschar 7x10cm in size, some surrounding erythema, very tender to palpation Psychiatric: alert and oriented to self and situation, tearful, depressed affect Results & Data Results & Data Vital Signs (Past 12 Hours) Vital Signs Temp Pulse Pulse Pulse Resp BP BP 06/04/23 07:29 36.5 C 74 20 150/84 H 06/04/23 02:55 36.5 C 71 18 132/84 06/04/23 00:48 76 06/03/23 23:02 36.6 C 78 16 142/86 H Pulse Ox O2 Del Method 06/04/23 07:29 99 Room Air 06/04/23 02:55 94 Room Air 06/04/23 00:48 06/03/23 23:02 92 Room Air PG Care Time/CCT Total # of Minutes Spent Total Time Spent with Patient: Total time spent is greater than 50% in coordination of care (as documented) at patient's floor/unit and/or counseling patient: Coding Level of Care Code 64194 SUB INP/OBS CARE 3/50MIN Diagnoses Acute alteration in mental status R41.82 Bacteremia due to Clostridium species R78.81; B96.89 Peroneal artery occlusion, right I70.201 End stage renal disease on dialysis N18.6; Z99.2 Thrombocytopenia D69.6 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 difficile diarrhea A04.72 Atrial fibrillation I48.91 Congestive heart failure I50.9 Cirrhosis K74.60 Goals of care, counseling/discussion Z71.89
[2023-06-04] MEDS ORDERED: GLUCOSE 10 TAB/TUBE PO SCH ×3 (08:00→12:00)
[2023-06-04] MEDS: DEXTROSE 50% 50 ML SYRINGE IV PRN ×2 (08:02→11:34)
[2023-06-04] MEDS: METOCLOPRAMIDE HCL 5 MG TABLET PO SCH ×3 (08:03→17:32)
[2023-06-04 08:57] LABS: Albumin Globulin Ratio 0.9 (0.9-2); Albumin Level 1.7 gm/dl (3.4-5.0); BUN Creatinine Ratio 3.2 (10-20); Bilirubin,Total 0.8 mg/dl (0.2-1.0); Calcium 7.2 mg/dl (8.6-10.3); Est GFR (African American) 18.8 ml/min; Est GFR (Non-African American) 16.2 ml/min; Globulin 1.9 gm/dl (2.5-4.0); Magnesium 1.7 mg/dl (1.7-2.4); Potassium 3.3 mmol/L (3.5-5.1); Total Protein 3.6 gm/dl (6.0-8.3)
[2023-06-04 09:25] LABS: Hemoglobin 8.5 g/dl (14.0-18.0); Mean Corpuscular Hemoglobin 30.7 pg (25.0-34.0); Mean Corpuscular Hgb Conc 32.7 g/dL (32.0-36.0); Mean Corpuscular Volume 93.9 fL (80.0-100.0); Platelet Count 49 K/uL (130-400); RDW Coefficient of Variation 19.1 % (11.5-14.5); RDW Standard Deviation 62.6 fL (36.4-46.3); Red Blood Count 2.77 M/uL (4.70-6.10); White Blood Count 5.81 K/ul (4.8-10.8)
[2023-06-04 09:26] LABS: Basophils # (auto) 0.02 K/uL (0-0.2); Basophils % (auto) 0.3 %; Immature Granulocytes # (auto) 0.03 K/uL (0.01-0.20); Immature Granulocytes % (auto) 0.5 %; Lymphocytes # (auto) 0.92 K/uL (1.2-3.4); Lymphocytes % (auto) 15.8 %; Monocytes # (auto) 0.24 K/uL (0.11-0.59); Monocytes % (auto) 4.1 %; Neutrophils % (auto) 79.3 %
[2023-06-04] MEDS ORDERED: POTASSIUM CHLORIDE CRTAB 20 MEQ TABCR PO STA (09:35)
[2023-06-04] MEDS: VALSARTAN/SACUBITRIL 26/24MG TAB PO SCH (12:22)
[2023-06-04] MEDS: HYDROCORTISONE 10 MG TAB PO SCH ×3 (12:22→21:38)
[2023-06-04] MEDS: buPROPion SR 100 MG TABCR PO SCH (12:22)
[2023-06-04] MEDS: FAMOTIDINE 20 MG TAB PO SCH ×3 (12:22→21:38)
[2023-06-04] MEDS: PANTOprazole 40 MG TAB PO SCH (12:22)
[2023-06-04] MEDS: AMIODARONE 200 MG TAB PO SCH (12:22)
[2023-06-04] MEDS: FUROSEMIDE 40 MG TAB PO SCH (12:22)
[2023-06-04] MEDS: carvediloL 6.25 MG TAB PO SCH (12:22)
[2023-06-04] MEDS: VANCOMYCIN HCL 125 MG/2.5ML SOLN PO SCH (12:23)
[2023-06-04] MEDS: SUCRALFATE 1 GM/10 ML UDC PO SCH ×2 (12:23)
[2023-06-04] MEDS: CEFEPIME 1,000 MG in SYRINGE 0 ML IV SCH (12:24)
--- NOTE | 2023-06-04 15:15 | Nephrology Progress Note ---
Date of Service June 04, 2023 Assessment & Plan (1) ESRD on dialysis: Plan: End-stage renal disease on dialysis Wednesday - Does not looke overloaded and his electrolytes are wnl, - For 3 hr treatment with3 lit UF, 3K bath - Next dialysis will be Wednesday (2) Altered mental status: Plan: Multiple possibilities -metabolic/ infection/ CVA, He has c difficle diarrhea. -Continue Abx as per primary. -Renally does ABX (3) Hypoglycemia: Plan: Continue diazoxide glucose tab steroid endocrinology recommendation after recent hospitalization and discharged [place] [facility] Admission and Anticipated Discharge Date Admission Date: June 02, 2023 Subjective Pleasantly confused at times More awake today Review of Systems Review of Systems: Unobtainable due to cognitive status Physical Exam Physical Exam: General- More awake .confused, Chest-clear to auscultation percussion. Cardiac-regular rate and rhythm, normal S1 and S2, no murmurs Abdomen-normal bowel sounds, nontender, no hepatosplenomegaly Extremities-chronic bilateral lower extremity edema and wound below the knees Psych-flat affect Results & Data Vital Signs (Past 12 Hours) Vital Signs Temp Pulse Pulse Pulse Resp BP BP 06/04/23 14:22 36.9 C 82 20 119/69 06/04/23 08:00 06/04/23 08:00 74 06/04/23 12:16 36.3 C L 74 16 06/04/23 11:49 36.4 C L 77 06/04/23 11:30 99 H 114/89 06/04/23 11:00 83 98/52 L 06/04/23 10:30 80 123/76 06/04/23 10:00 80 93/68 L 06/04/23 09:30 72 126/63 06/04/23 09:00 76 149/83 H 06/04/23 08:31 76 161/112 H 06/04/23 08:25 36.4 C L 74 06/04/23 07:29 36.5 C 74 20 150/84 H BP Pulse Ox O2 Del Method 06/04/23 14:22 95 Room Air 06/04/23 08:00 Room Air 06/04/23 08:00 06/04/23 12:16 140/72 98 Room Air 06/04/23 11:49 127/53 L 06/04/23 11:30 06/04/23 11:00 06/04/23 10:30 06/04/23 10:00 06/04/23 09:30 06/04/23 09:00 06/04/23 08:31 06/04/23 08:25 06/04/23 07:29 99 Room Air Laboratory Results 06/04/23 08:27 06/04/23 08:27 (2) Altered mental status Altered mental status type: unspecified Qualified Code(s): R41.82 - Altered mental status, unspecified
[2023-06-04] MEDS ORDERED: LORazepam 0.5 MG TAB PO PRN (15:46)
[2023-06-04] MEDS ORDERED: ONDANSETRON 4 MG OD TAB SL PRN (15:46)
[2023-06-04] MEDS ORDERED: ONDANSETRON INJ 2 MG/ML 2 ML VIAL IV PRN (15:46)
[2023-06-04] MEDS ORDERED: MoRPHine SULFATE 10 MG/0.5 ML UDP PO PRN (16:12)
[2023-06-04] MEDS ORDERED: DAPTOmycin 625 MG in SYRINGE 0 ML IV ONE (17:00)
[2023-06-04] MEDS ORDERED: HYDROmorphone INJ 1 MG/ML SYRINGE IV STA (17:44)
[2023-06-04] MEDS: VENLAFAXINE HCL XR 75 MG CAPXR PO SCH ×2 (21:35→21:39)
--- NOTE | 2023-06-05 07:52 | Hospitalist Progress Note ---
Date of Service June 05, 2023 Assessment & Plan (1) Acute alteration in mental status: Plan: -Metabolic encephalopathy with possible etiologies including infection (bacteremia vs. RLE cellulitis), CVA, pain 2/2 RLE arterial occlusion, severe hypoglycemia -Procal elevated, possibly due to infection vs. ESRD. Lactate initially elevated at 3 on arrival, decreased to 1.5 on repeat check -Episodes of hypoglycemia, known pancreatic dysfunction, see below -CT Head wo con with possible acute right parietal infarct vs. chronic white matter changes -Unable to be on anticoagulants and antiplatelets due to several major GI bleeds and severe thrombocytopenia 2/2 cirrhosis -Unable to obtain MRI due to history of several previous metal implants per -06/04 had long conversation with patient's and sister regarding his multiple chronic, progressive medical conditions, including severe bleeding history, arterial occlusion in right lower extremity, possible recent stroke, bacteremia, BROWN cirrhosis with thrombocytopenia, CHF, hypoglycemia, and end- stage renal disease. Patient himself reports being tired and wanting to go home. is concerned about his suffering, and feels that our efforts are potentially prolonging suffering, and with this in mind decision was made today by patient and family to pursue comfort care. Ideally, he would be able to go home as soon as possible. I expressed that if we stop doing glucose checks and giving glucose, that he could continue to decline with regard to his low blood sugars. However, patient reports he does not want any more "pokes" or blood draws, and so BSG checks and labwork was discontinued. Glucose tablets also discontinued as patient does not like them and per "will not take them for her". Case Management made aware of wishes of family, Palliative Care consulted, and transferred to medical floor placed for comfort measures. Antibiotics discontinued. Dilaudid, Ativan, Haldol, nausea medications prn. Can continue home antidepressants, PPI/Pepcid for patient comfort. (2) Bacteremia due to Clostridium species: Plan: -Diagnosed on last admission -Does not appear that he completed the prescribed course of IV and PO Abx on l ast discharge -BCx this admission NGTD (3) Peroneal artery occlusion, right: Plan: -RLE with significant pain with minimal palpation, has been worsening in the recent past per -Duplex RLE with evidence of occlusion of profunda femoris and peroneal arteries -Anticoagulation has been contraindicated in this patient due to history of several severe GI bleeds -Dr. 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 -Is the reason for his chronic hypoglycemia -Continue BID hydrocortisone -On glucose tabs q6h at home, patient dislikes and will not take, therefore will give things like soda/juice/crackers prn -BSG checks discontinued for comfort (7) Elevated troponin: Plan: -Demand ischemia in setting of likely infection and poor clearance due to ESRD, troponins downtrending -Not acute significant ST segment or T-wave changes on ECG -Patient is without chest discomfort or SOB (8) Leg lesion: Plan: -Multiple chronic wounds on the RLE appear to have increased surround erythema and are tender to palpation -Wound likely due to arterial occlusion and insufficiency -Pain control with prn Tylenol/Dilaudid (9) Atrial fibrillation: Plan: -Stable -Not on anticoagulation due to previous large GI bleeds and thrombocytopenia (10) Congestive heart failure: Plan: -Appears euvolemic (11) Cirrhosis: Plan: -LFTs are stable -Ammonia WNL (12) Goals of care, counseling/discussion: Plan: Patient is comfort care, plan for home with hospice when able to arrange deta ils, Case Management assisting Plan -Case Management looking into hospice benefits for patient, comfort care while admitted Admission and Anticipated Discharge Date Admission Date: June 02, 2023 Subjective Overnight with some RLE pain, relieved with Dilaudid. Denies complaints today, asked for a glass of water. Physical Exam Constitutional: comfortable appearing, no acute distress Respiratory: breathing comfortably, no accessory muscle use Psychiatric: alert and oriented to self and situation, euthymic affect Results & Data Results & Data Vital Signs (Past 12 Hours) Vital Signs O2 Del Method 06/04/23 20:20 Room Air PG Care Time/CCT Total # of Minutes Spent Total Time Spent with Patient: Total time spent is greater than 50% in coordination of care (as documented) at patient's floor/unit and/or counseling patient: Coding Level of Care Code 40697 SUB INP/OBS CARE Diagnoses Acute alteration in mental status R41.82 Bacteremia due to Clostridium species R78.81; B96.89 Peroneal artery occlusion, right I70.201 End stage renal disease on dialysis N18.6; Z99.2 Thrombocytopenia D69.6 Nesidioblastosis E16.9 Elevated troponin R77.8 Leg lesion L98.9 Atrial fibrillation I48.91 Congestive heart failure I50.9 Cirrhosis K74.60 Goals of care, counseling/discussion Z71.89
[2023-06-05] MEDS: PANTOprazole 40 MG TAB PO SCH (08:26)
[2023-06-05] MEDS: FAMOTIDINE 20 MG TAB PO SCH ×2 (08:27→21:07)
[2023-06-05] MEDS: buPROPion SR 100 MG TABCR PO SCH (08:27)
[2023-06-05] MEDS: METOCLOPRAMIDE HCL 5 MG TABLET PO SCH ×3 (08:27→16:52)
[2023-06-05] MEDS: HYDROCORTISONE 10 MG TAB PO SCH ×2 (08:27→21:07)
[2023-06-05 10:08] LABS: HBSAG NON-REACTIVE (NON-REACTIVE)
[2023-06-05] MEDS: VENLAFAXINE HCL XR 75 MG CAPXR PO SCH (21:07)
--- NOTE | 2023-06-06 07:40 | Hospitalist Progress Note ---
Date of Service June 06, 2023 Assessment & Plan (1) Acute alteration in mental status: Plan: -Metabolic encephalopathy with possible etiologies including infection (bacteremia vs. RLE cellulitis), CVA, pain 2/2 RLE arterial occlusion, severe hypoglycemia -Procal elevated, possibly due to infection vs. ESRD. Lactate initially elevated at 3 on arrival, decreased to 1.5 on repeat check -Episodes of hypoglycemia, known pancreatic dysfunction, see below -CT Head wo con with possible acute right parietal infarct vs. chronic white matter changes -Unable to be on anticoagulants and antiplatelets due to several major GI bleeds and severe thrombocytopenia 2/2 cirrhosis -Unable to obtain MRI due to history of several previous metal implants per -06/04 patient made comfort care after conversation with patient and his regarding his multiple chronic, progressive medical conditions, including severe bleeding history, arterial occlusion in right lower extremity, possible recent stroke, bacteremia, BROWN cirrhosis with thrombocytopenia, CHF, hypoglycemia, and end-stage renal disease. Patient himself reports being tired and wanting to go home. is concerned about his suffering, and with this in mind decision was made by patient and family to pursue comfort care. Ideally, he would be able to go home as soon as possible. I expressed that if we stop doing glucose checks and giving glucose, that he could continue to decline with regard to his low b lood sugars. However, patient reports he does not want any more "pokes" or blood draws, and so BSG checks and labwork was discontinued. Glucose tablets also discontinued as patient does not like them and per "will not take them for her". Family also made aware that patient will have decline as he stops going to dialysis. Case Management made aware of wishes of family and looking into hospice benefits, Palliative Care consulted, and transferred to medical floor for comfort measures. Antibiotics discontinued as I am not convinced that he had a new infection on admission. Dilaudid, Ativan, Haldol, nausea medications prn. Can continue home antidepressants, PPI/Pepcid for patient comfort. Discontinue dressing changes for comfort. (2) Bacteremia due to Clostridium species: Plan: -Diagnosed on last admission -Does not appear that he completed the prescribed course of IV and PO Abx on last discharge -BCx this admission NGTD (3) Peroneal artery occlusion, right: Plan: -RLE with significant pain with minimal palpation, has been worsening in the recent past per -Duplex RLE with evidence of occlusion of profunda femoris and peroneal arteries -Anticoagulation has been contraindicated in this patient due to history of several severe GI bleeds -Dr. 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 -Is the reason for his chronic hypoglycemia -Continue BID hydrocortisone -On glucose tabs q6h at home, patient dislikes and is now comfort care, therefore can have regular diet as he desires -BSG checks discontinued for comfort (7) Elevated troponin: Plan: -Demand ischemia in setting of likely infection and poor clearance due to ESRD, troponins downtrending -Not acute significant ST segment or T-wave changes on ECG -Patient is without chest discomfort or SOB (8) Leg lesion: Plan: -Multiple chronic wounds on the RLE appear to have increased surround erythema and are tender to palpation -Wound likely due to arterial occlusion and insufficiency -Pain control with prn Tylenol/Dilaudid (9) Atrial fibrillation: Plan: -Stable -Not on anticoagulation due to previous large GI bleeds and thrombocytopenia (10) Congestive heart failure: Plan: -Appears euvolemic (11) Cirrhosis: Plan: -LFTs are stable -Ammonia WNL (12) Goals of care, counseling/discussion: Plan: Patient is comfort care, plan for home with hospice when able to arrange details, Case Management assisting Plan -Case Management looking into hospice benefits for patient, comfort care while admitted Admission and Anticipated Discharge Date Admission Date: June 02, 2023 Subjective No overnight events. Patient was sleeping during evaluation, appeared comfortab le, no concerns per nursing staff. Per , Edgar is a bit more confused today but not uncomfortable nor agitated. Physical Exam Constitutional: comfortable appearing, no acute distress Respiratory: breathing comfortably, no accessory muscle use Cardiovascular: non-tachycardic Psychiatric: Sleeping during my evaluation Results & Data Results & Data Vital Signs (Past 12 Hours) Vital Signs O2 Del Method 06/06/23 02:22 Room Air 06/05/23 21:00 Room Air PG Care Time/CCT Total # of Minutes Spent Total Time Spent with Patient: Total time spent is greater than 50% in coordination of care (as documented) at patient's floor/unit and/or counseling patient: Coding Level of Care Code 72906 SUB INP/OBS CARE 1/25MIN Diagnoses Acute alteration in mental status R41.82 Bacteremia due to Clostridium species R78.81; B96.89 Peroneal artery occlusion, right I70.201 End stage renal disease on dialysis N18.6; Z99.2 Thrombocytopenia D69.6 Nesidioblastosis E16.9 Elevated troponin R77.8 Leg lesion L98.9 Atrial fibrillation I48.91 Congestive heart failure I50.9 Cirrhosis K74.60 Goals of care, counseling/discussion Z71.89
[2023-06-06] MEDS: PANTOprazole 40 MG TAB PO SCH (08:05)
[2023-06-06] MEDS: METOCLOPRAMIDE HCL 5 MG TABLET PO SCH ×3 (08:05→18:25)
[2023-06-06] MEDS: buPROPion SR 100 MG TABCR PO SCH (08:05)
[2023-06-06] MEDS: HYDROCORTISONE 10 MG TAB PO SCH ×2 (08:05→20:23)
[2023-06-06] MEDS: FAMOTIDINE 20 MG TAB PO SCH ×2 (08:07→20:23)
[2023-06-06] MEDS: HYDROmorphone HCL 2 MG TAB PO PRN (12:27)
[2023-06-06] MEDS: VENLAFAXINE HCL XR 75 MG CAPXR PO SCH (20:23)
[2023-06-07] MEDS ORDERED: SODIUM CHLORIDE 0.9% 1000ML 1,000 ML IV PRN (07:00)
[2023-06-07] MEDS ORDERED: EPOETIN ALFA 20,000 UNITS/ML VIAL IV ONE (07:00)
[2023-06-07] MEDS: LORazepam 2 MG/1 ML VIAL IV PRN ×2 (07:28→13:30)
[2023-06-07] MEDS: METOCLOPRAMIDE HCL 5 MG TABLET PO SCH ×2 (08:14→12:54)
[2023-06-07] MEDS: PANTOprazole 40 MG TAB PO SCH (08:14)
[2023-06-07] MEDS: buPROPion SR 100 MG TABCR PO SCH (08:14)
[2023-06-07] MEDS: HYDROCORTISONE 10 MG TAB PO SCH (08:14)
--- NOTE | 2023-06-07 08:28 | Hospitalist Progress Note ---
Date of Service June 07, 2023 Assessment & Plan (1) Acute alteration in mental status: Plan: -Metabolic encephalopathy with possible etiologies including infection (bacteremia vs. RLE cellulitis), CVA, pain 2/2 RLE arterial occlusion, severe hypoglycemia -Procal elevated, possibly due to infection vs. ESRD. Lactate initially elevated at 3 on arrival, decreased to 1.5 on repeat check -Episodes of hypoglycemia, known pancreatic dysfunction, see below -CT Head wo con with possible acute right parietal infarct vs. chronic white matter changes -Unable to be on anticoagulants and antiplatelets due to several major GI bleeds and severe thrombocytopenia 2/2 cirrhosis -Unable to obtain MRI due to history of several previous metal implants per -06/04 patient made comfort care after conversation with patient and his regarding his multiple chronic, progressive medical conditions, including severe bleeding history, arterial occlusion in right lower extremity, possible recent stroke, bacteremia, BROWN cirrhosis with thrombocytopenia, CHF, hypoglycemia, and end-stage renal disease. Patient himself reports being tired and wanting to go home. is concerned about his suffering, and with this in mind decision was made by patient and family to pursue comfort care. Ideally, he would be able to go home as soon as possible. I expressed that if we stop doing glucose checks and giving glucose, that he could continue to decline with regard to his low b lood sugars. However, patient reports he does not want any more "pokes" or blood draws, and so BSG checks and labwork was discontinued. Glucose tablets also discontinued as patient does not like them and per "will not take them for her". Family also made aware that patient will have decline as he stops going to dialysis. Case Management made aware of wishes of family and looking into hospice benefits, Palliative Care consulted, and transferred to medical floor for comfort measures. Antibiotics discontinued as I am not convinced that he had a new infection on admission. Dilaudid, Ativan, Haldol, nausea medications prn. Can continue home antidepressants, PPI/Pepcid for patient comfort. Discontinue dressing changes for comfort. (2) Bacteremia due to Clostridium species: Plan: -Diagnosed on last admission -Does not appear that he completed the prescribed course of IV and PO Abx on last discharge -BCx this admission NGTD (3) Peroneal artery occlusion, right: Plan: -RLE with significant pain with minimal palpation, has been worsening in the recent past per -Duplex RLE with evidence of occlusion of profunda femoris and peroneal arteries -Anticoagulation has been contraindicated in this patient due to history of several severe GI bleeds -Dr. 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 -Is the reason for his chronic hypoglycemia -Continue BID hydrocortisone -On glucose tabs q6h at home, patient dislikes and is now comfort care, therefore can have regular diet as he desires -BSG checks discontinued for comfort (7) Elevated troponin: Plan: -Demand ischemia in setting of likely infection and poor clearance due to ESRD, troponins downtrending -Not acute significant ST segment or T-wave changes on ECG -Patient is without chest discomfort or SOB (8) Leg lesion: Plan: -Multiple chronic wounds on the RLE appear to have increased surround erythema and are tender to palpation -Wound likely due to arterial occlusion and insufficiency -Pain control with prn Tylenol/Dilaudid (9) Atrial fibrillation: Plan: -Stable -Not on anticoagulation due to previous large GI bleeds and thrombocytopenia (10) Congestive heart failure: Plan: -Appears euvolemic (11) Cirrhosis: Plan: -LFTs are stable -Ammonia WNL (12) Goals of care, counseling/discussion: Plan: Patient is comfort care, plan for home with hospice when able to arrange details, Case Management assisting Plan -Case Management looking into hospice benefits for patient, comfort care while admitted Admission and Anticipated Discharge Date Admission Date: June 02, 2023 PG Care Time/CCT Total # of Minutes Spent Total Time Spent with Patient: Total time spent is greater than 50% in coordination of care (as documented) at patient's floor/unit and/or counseling patient: Coding Diagnoses Acute alteration in mental status R41.82 Bacteremia due to Clostridium species R78.81; B96.89 Peroneal artery occlusion, right I70.201 End stage renal disease on dialysis N18.6; Z99.2 Thrombocytopenia D69.6 Nesidioblastosis E16.9 Elevated troponin R77.8 Leg lesion L98.9 Atrial fibrillation I48.91 Congestive heart failure I50.9 Cirrhosis K74.60 Goals of care, counseling/discussion Z71.89
[2023-06-07] MEDS: FAMOTIDINE 20 MG TAB PO SCH (09:05)
[2023-06-07] MEDS ORDERED: haloperidoL 1 MG TAB PO PRN (09:41)
--- NOTE | 2023-06-07 12:43 | Discharge Summary ---
Discharge Summary Date of Service June 07, 2023 Admission HPI Per Admitting Provider Edgar is a 62 YO wheelchair bound male with medical history of HFrEF, VTACH, ESRD (MWF), anemia, BROWN cirrhosis, afib/PAF(not on anticoagulation due to major GI bleeds), HLD, Gastroporesis, Gout, CAD with STENTS and CABG, ELLA (noncompliant with CPAP), Depression, Nesidioblastosis causing chronic hypoglycemia, and recent C. diffinfection who presented to the [facility] ED from the dialysis clinic on 06/02 due to AMS. Vitals remained stable in the ED. Labs were significant for a thrombocytopenia of 56 (down from 101 as of 05/26), potassium of 3.1, initial lactate of 3.1, corrected calcium of 9.0, initial high sen trop of 252, procal of 0.87, and negative alcohol level. Chest xray was read "No acute abnormalities and in particular no radiographic evidence of pneumonia.". CT of the head wo con was read as "Findings may represent acute right parietal infarct. Less likely, this may represent progression of chronic white matter changes. No evidence of hemorrhage.". Prior to admission the patient was given a dose of cefepime, dose of IV vancomycin, and 500 mL NSS. Per chart review, the patient was recently admitted to [facility] from 05/21-05/28 for AMS. Per the discharge summary he was found to have Bacteremia due to Clostridium species (enterococcus and Clostridium perfringens). TTE and CT of the abd/pelvis were negative for acute findings. ID was consulted and recomme nded daptomycin 625 mg dosed three times a week after HD(~8.8 mg/kg by adjusted body weight of 71 kg) to cover E faecalis, VRE. Complete a 14 day course with last dose on 06/04/23. daptomycin 625 mg dosed three times a week after HD(~8.8 mg/kg by adjusted body weight of 71 kg) to cover E faecalis, VRE. Complete a 14 day course withlast dose on 06/04/23. He was also treated initially with IV Flagyl but switched to PO to complete a 7 day course through 05/29/23. The patient had completed a 10 day course of PO Vancomycin while admitted for recently diagnosed C.diff infection. ID recommended continuing 125 mg PO Vancomycin daily for prophylaxis while on systemic antibiotics; end date was recommended to be 06/11. At the time of the exam the patient was lying in bed in no acute distress. He was alert and oriented to person, place, month, and year and did not appear con fused during the exam. He states that he remembers being nauseous at dialysis but does not remember being confused. He has no complaints at this time including chest pain, cough, SOB, abd pain, vomiting, diarrhea, and recent trauma. I was able to call his to obtain more information. She states that the patient was agitated and having hallucinations yesterday starting around 3pm. He took an approximately 4 hour nap and was initially improved but did not sleep well overnight. This morning the patient was more confused and agitated than baseline, such as trying to drive his wheelchair out their front door before the ramp was in place. She states this is not his baseline. She thought that dialysis may help so tried to take him to his typical Wednesday appointment. However, shortly after starting dialysis they called EMS as he was agitated and confused per staff. When speaking with his regarding the patient's medications, she states that the patient has only been on the oral Vancomycin since discharge. She states she was not told about continuing IV Daptomycin MWF after HD until 06/04 and has been unable to picker/puller the PO Flagyl since last discharge. Please refer to Dr. Hopper's attestation for any changes to the treatment plan Admission Exam Per Admitting Provider General:In no acute distress, stated age, chronically ill appearing but non- toxic HEENT:Normocephalic, atraumatic, no scleral icterus, pupils around round, symmetrical, and reactive to light, moist mucus membranes, trachea midline, no thyromegaly Chest/Pulm:HD cath located in the right upper chest is without signs of infection,No respiratory distress, symmetrical chest expansion, clear breath sounds throughout Cardiac:regular rate, irregular rhythm, systolic murmur noted Abdomen:Negative for ascites and bruising, normoactive bowel sounds, soft, non- tender to palpation throughout Musculoskeletal:Patient without signs of acute trauma, symmetric strength in the BL upper extremities, symmetrical but decreased strength in the BL LE's (at baseline compared to last admission) Extremities:Radial, dorsalis pedis, and posterior tibial pulses are intact and symmetrical, no edema noted in the BL LE's Skin:Patient with scattered skin tears and bruising in various stages of healing on the BL shoulder, upper extremities and lower extremities, skin tears on the shoulders and upper extremities do not appear infected at this time >Patient with large chronic wound on the posterior/lateral aspect of the right calf with surrounding erythema, this is very tender to palpation >Multiple smaller chronic wounds in various stages of healing on the anterior aspect of the right LE with surrounding erythema and tenderness as well >Erythema which blanches on palpation located on the sacrum, small skin u lcer on the lower back without signs of drainage or infection Neuro:Alert and oriented to person, place, month, year, CN II-XII tested and intact,patient was non-complaint with cerebellar and pronator drift testing Psych:No acute distress, calm and cooperative during the exam Principal Dx & Hospital Course #1 = Principal Diagnosis (1) Acute alteration in mental status: -Metabolic encephalopathy with possible etiologies including infection (bacteremia vs. RLE cellulitis), CVA, pain 2/2 RLE arterial occlusion, severe hypoglycemia -Procal elevated, possibly due to infection vs. ESRD. Lactate initially elevated at 3 on arrival, decreased to 1.5 on repeat check -CT Head wo con with possible acute right parietal infarct vs. chronic white matter changes -Unable to be on anticoagulants and antiplatelets due to several major GI bleeds and severe thrombocytopenia 2/2 cirrhosis -Unable to obtain MRI due to history of several previous metal implants per -06/04 patient made comfort care after conversation with patient and his regarding his multiple chronic, progressive medical conditions, including severe bleeding history, arterial occlusion in right lower extremity, possible recent stroke, bacteremia, BROWN cirrhosis with thrombocytopenia, CHF, hypoglycemia, and end-stage renal disease. Patient himself reports being tired and wanting to go home. is concerned about his suffering, and with this in mind decision was made by patient and family to pursue comfort care. Case Management made aware, Palliative Care consulted, and Edgar discharged home today with hospice care. Antibiotics discontinued as I am not convinced that he had a new infection on admission. Dilaudid, Ativan, Haldol, nausea medications prn. Can continue home antidepressants, PPI/Pepcid for patient comfort if desired. Discontinue dressing changes for comfort. (2) Bacteremia due to Clostridium species: -Diagnosed on last admission -BCx this admission NGTD (3) Peroneal artery occlusion, right: -RLE with significant pain with minimal palpation, has been worsening in the recent past per -Duplex RLE with evidence of occlusion of profunda femoris and peroneal arteries -Anticoagulation has been contraindicated in this patient due to history of several severe GI bleeds -Dr. Randall evaluated patient's imaging, unfortunately would not be candidate for intervention due to his comorbidities even if recommended (4) End stage renal disease on dialysis: -Renal function and electrolytes are stable at this time -[facility] HD consult discontinued for comfort care (5) Thrombocytopenia: -Platelets fluctuate per review of previous labs -No signs of active bleeding (6) Nesidioblastosis: -Diagnosed by [facility] Endocrinology recently -Is the reason for his chronic hypoglycemia -Comfort care, diet as desired at home (7) Elevated troponin: -Demand ischemia in setting of likely infection and poor clearance due to ESRD, troponins downtrending -Not acute significant ST segment or T-wave changes on ECG -Patient is without chest discomfort or SOB (8) Leg lesion: -Multiple chronic wounds on the RLE appear to have increased surround erythema and are tender to palpation -Wound likely due to arterial occlusion and insufficiency -Pain control with prn Tylenol/Dilaudid (9) Atrial fibrillation: -Stable -Not on anticoagulation due to previous large GI bleeds and thrombocytopenia (10) Congestive heart failure: -Appears euvolemic (11) Cirrhosis: -LFTs stable and ammonia WNL on admission (12) Goals of care, counseling/discussion: Patient is comfort care, discharged today home with hospice, care by Yvette his Discharge Exam Constitutional comfortable appearing, sleeping Respiratory no increased work of breathing or tachypnea Psychiatric comfortable Updated Medication List Medication Instructions Recorded Confirmed Type darbepoetin tye in polysorbat 100 10 mcg subcut WK 03/23/23 05/21/23 History mcg/0.5 mL in polysorbate injection syringe nitroglycerin 0.4 mg sublingual 0.4 mg sublingual DIRECTED PRN 03/31/23 06/02/23 History tablet Chest Pain amiodarone 200 mg tablet 200 mg PO BID #180 tabs 04/20/23 06/02/23 Rx atorvastatin 40 mg tablet 40 mg PO HS #90 tabs 04/20/23 06/02/23 Rx bupropion HCl 100 mg tablet,12 hr 100 mg PO DAILY #90 ea 04/20/23 06/02/23 Rx sustained-release colesevelam 625 mg tablet (WelChol) 1,875 mg PO BIDM #540 tabs 04/20/23 06/02/23 Rx metoclopramide HCl 5 mg tablet 2.5 mg PO TIDM #135 tabs 04/20/23 06/02/23 Rx ondansetron 4 mg disintegrating 4 mg PO TID PRN Nausea #270 tabs 04/20/23 06/02/23 Rx tablet venlafaxine 225 mg tablet,extended 225 mg PO HS #90 tabs 04/20/23 06/02/23 Rx release 24 hr promethazine 12.5 mg tablet 12.5 mg PO Q6H PRN NAUSEA/VOMITING 04/28/23 05/21/23 History glucagon 1 mg/mL solution for 1 mg IM .COMPLEX PRN Low bsg 05/18/23 06/02/23 History injection allopurinol 100 mg tablet 100 mg PO HS 05/19/23 06/02/23 History glucose 4 gram chewable tablet 16 g PO DIRECTED PRN .low bsg 05/19/23 06/02/23 History lorazepam 1 mg tablet 1 mg PO HS PRN Sleep 05/19/23 06/02/23 History nystatin 100,000 unit/gram topical 1 applic topical BID PRN Skin 05/19/23 06/02/23 History cream Irritation pantoprazole 40 mg tablet,delayed 40 mg PO QAM 05/19/23 06/02/23 History release (Protonix) sacubitril 24 mg-valsartan 26 mg 1 tab PO BID 05/19/23 06/02/23 History tablet carvedilol 12.5 mg tablet 6.25 mg PO BID 05/21/23 06/02/23 History famotidine 20 mg tablet 20 mg PO BID 05/21/23 06/02/23 History diazoxide 50 mg/mL oral suspension 50 mg PO TID #90 mL 05/28/23 05/21/23 Rx (Proglycem) furosemide 40 mg tablet 40 mg PO QAM 06/02/23 06/02/23 History prednisone 5 mg tablet 5 mg PO QAM 06/02/23 06/02/23 History promethazine 25 mg/mL injection 12.5 mg IM Q6H PRN vomiting and 06/02/23 History syringe nausea sucralfate 100 mg/mL oral 1 g PO QID 06/02/23 06/02/23 History suspension vitamin B complex-vitamin C-folic 1 tab PO HS 06/02/23 06/02/23 History acid 0.8 mg tablet (Nephro Vitamins) haloperidol 1 mg tablet 1 mg PO Q4H PRN agitation #10 tabs 06/07/23 Rx hydromorphone 2 mg tablet 1 mg PO Q6H PRN pain #10 tabs 06/07/23 Rx (Dilaudid) lorazepam 0.5 mg tablet 0.5 mg PO Q4H PRN anxiety #10 tabs 06/07/23 Rx ondansetron 4 mg disintegrating 4 mg sublingual Q4H PRN nausea and 06/07/23 Rx tablet vomiting #10 tabs Hospital Stay Data Consultations 06/02/23 13:49 ED Decision to Admit Stat 06/02/23 16:01 Consult Nephrology Routine 06/04/23 15:46 Consult Palliative Care Routine Diagnostic Imagining Performed 06/02/23 11:29 CT head/brain wo con Stat 06/02/23 16:02 CT leg [CT tib/fib RT wo con] Stat 06/02/23 20:16 US doppler leg [US arterial duplex LE RT] Routine Pending Results Patient Have Any Pending Studies at Discharge: No Discharge Instructions Given to Patient (Per Discharging Provider) Egdar was admitted for evaluation of his confusion and possible infection. That wound on his leg was found to be due to poor blood flow, due to several blockages in the arteries in that leg. We think that is why it hurts so much. We all had a meeting, and after talking about his health decline, Edgar was placed on comfort care. I have sent in Dilaudid for pain, Ativan for anxiety or agitation, and even Haldol if he needs it if he gets agitated. The hospice providers will see Edgar today, and will help with any meds or needs he may have. Please call the hospice team if you are concerned about Edgar's pain or symptoms, or if you need any advice in his care. Total Time Total Time Spent Total Time Spent (In Minutes): 35 mins Coding Level of Care Code 13263 INP/OBS DISCH >30 MIN Diagnoses Acute alteration in mental status R41.82 Bacteremia due to Clostridium species R78.81; B96.89 Peroneal artery occlusion, right I70.201 End stage renal disease on dialysis N18.6; Z99.2 Thrombocytopenia D69.6 Nesidioblastosis E16.9 Elevated troponin R77.8 Leg lesion L98.9 Atrial fibrillation I48.91 Congestive heart failure I50.9 Cirrhosis K74.60 Goals of care, counseling/discussion Z71.89
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
[2023-06-07] MEDS: HYDROmorphone HCL 2 MG TAB PO PRN (15:01)
== END 2023-06-07 16:00 | disposition hospice, home (50) | DRG 637 ==
LOC: ED 10:58 → 2N 15:31 → SUATTDRO 15:31 → 2N 17:10 → 3E 06-04 20:45